=== PATIENT | female | born 1940 | race Caucasian/White ===

== ENCOUNTER 2017-05-28 12:15 | Observation (INO) | payer MEDICARE ==
[2017-05-28 13:10] LABS: BASOPHIL % 0.2 % (0.0-0.4); Basophil (Absolute #) 0.02 (0-0.4); Eosinophil % 1.1 % (0.00-5.0); Eosinophil (Absolute #) 0.11 (0-0.5); Granulocyte Absolute (ANC) 7.04 (1.4-6.9); Granulocytes % 70.7 % (36.0-66.0); Hematocrit 44.1 % (35-47); Hemoglobin 14.6 gm/dl (12.0-16.0); Lymphocyte (Absolute #) 1.62 (1.0-4.6); Lymphocytes % 16.3 % (24.0-44.0); Mean Cell Volume 92.6 fl (78-100); Mean Corpuscular Hemoglobin 30.7 pg (26-32); Mean Corpuscular Hgb Concent. 33.1 g/dl (32-36); Mean Platelet Volume 9.6 fl (6-9.5); Monocyte (Absolute #) 1.17 (0.0-1.3); Monocytes % 11.7 % (0.0-12.0); Platelet Count 272 K/mm3 (150-450); Red Blood Count 4.76 M/mm3 (4.1-5.4); Red Cell Distribution Width 14.3 % (11.5-14.0)
[2017-05-28] MEDS ORDERED: Zofran 4 MG/2 ML VIAL IV PRN (13:27)
[2017-05-28] MEDS ORDERED: MORPHINE SULFATE 2 MG INJ IV PRN (13:28)
[2017-05-28] MEDS ORDERED: Lactated Ringers 1,000 ML IV SCH ×2 (13:30→14:30)
[2017-05-28 13:38] LABS: ALBUMIN 3.6 g/dL (3.4-5.0); ALKALINE PHOSPHATASE 81 U/L (46-116); ANION GAP 15.6 MEQ/L (5-15); BLOOD UREA NITROGEN 16 mg/dL (9-20); CHLORIDE 104 mEq/L (98-107); Calcium 9.3 mg/dL (8.5-10.1); Carbon Dioxide 27.6 mEq/L (21-32); Creatinine 1 0.84 mg/dl (0.55-1.30); EST GLOMERULAR FILTRATION RATE > 60 ML/MIN; Glucose 136 MG/DL (70-110); LIPASE 70 U/L (73-393); Potassium 4.8 mEq/L (3.5-5.1); SGOT/AST 13 U/L (15-37); SGPT/ALT 16 U/L (12-78); SODIUM 142 mEq/L (136-145); Total Protein 7.9 gm/dL (6.4-8.2)
[2017-05-28] MEDS ORDERED: PROTONIX 40 MG IV IV ONE (14:00)
--- NOTE | 2017-05-28 15:31 | XRAY ---
Indication: Abdominal pain and cramping. Multiple contiguous axial images obtained through the abdomen and pelvis using 80 cc Isovue 370 contrast only. Comparison: None Lung bases demonstrate scattered bilateral fibrosis/scarring and right base calcified granuloma. No infiltrate or effusion. Heart is not enlarged. Moderate-sized hiatal hernia with partial intrathoracic stomach. Noncontrasted stomach and bowel loops appear nonobstructed. Previous reported appendectomy. Mild scattered left hemicolon fecal debris. Distal sigmoid colon diverticulosis. The more mid to proximal sigmoid colon demonstrates moderate bowel wall thickening, minimal stranding, and tiny free fluid presumed inflammatory. There is intraluminal narrowing and therefore underlying mass not completely excluded. No free air. Gallbladder demonstrates numerous tiny gallstones/gravel. Bilateral adrenal hypertrophy. 1.7 cm right upper pole cortical cyst. Remaining liver, pancreas, spleen, kidneys, ureters, bladder, and uterus appear unremarkable. Moderate aortoiliac calcifications. No AAA or pathologic retroperitoneal lymphadenopathy. Osseous structures intact with mild degenerative changes throughout the spine, greatest at the lumbosacral junction. Impression: 1. Sigmoid colon bowel wall thickening with stranding and tiny free fluid presumed inflammatory. Underlying mass not completely excluded. Distal sigmoid diverticulosis. 2. Hiatal hernia with partial intrathoracic stomach. 3. Tiny gallstones/gravel, bilateral adrenal hypertrophy, and right renal cyst. CT DI 22.77
[2017-05-28 16:14] LABS: Appearance CLEAR (CLEAR); Bilirubin NEGATIVE (NEGATIVE); Blood NEGATIVE Ery/ul (0-5); Glucose NEGATIVE (NEGATIVE); Ketones NEGATIVE (NEGATIVE); Leukocyte Esterase NEGATIVE (NEGATIVE); Nitrite NEGATIVE (NEGATIVE); Protein,Urine Dip NEGATIVE (Negative); Specific Gravity 1.005 (1.005-1.025); Urobilinogen NORMAL mg/dL (0-1)
[2017-05-28] MEDS ORDERED: Altace 5 MG PO SCH (17:00)
[2017-05-28] MEDS ORDERED: Dulcolax 10 MG SUPP PR PRN (17:41)
[2017-05-28] MEDS ORDERED: TYLENOL 325 MG PO PRN (17:41)
[2017-05-28] MEDS ORDERED: Senokot-S Tablet PO PRN (17:42)
--- NOTE | 2017-05-28 17:47 | PCM.HP ---
History of Present Illness - Chief Complaint Chief Complaint: Abd pain/ Dehydration Date: 05/28/17 History of Present Illness: is a 77 year old female. who lives at home alone and has had chronic difficulty with her bowels. 3 days ago she developed severe abdominal pains diffusely and started having chills and flushing. She stayed in bed all night and was very weak. She had no appetite and for the last 3 days has only been out of the bed to urinate and would have pain with walking or if her abdomen would bounce or shift. She did call today for a doctor's appointment and did manage to take a shower and drive to the office and felt the pain was improving but was still having increased pain with any bumps. She was found to have rebound tenderness on exam and dry lips and oral mucosa with tachycardia and sent for observation and evaluation. - Review of Systems Constitutional: No Fever, No Chills Eyes: No Symptoms Ears, Nose, & Throat: No Symptoms Respiratory: No Cough, No Short Of Breath Cardiac: No Chest Pain, No Edema, No Syncope Abdominal/Gastrointestinal: Abdominal Pain, Nausea, No Vomiting, No Diarrhea Genitourinary Symptoms: No Dysuria Musculoskeletal: Back Pain, No Neck Pain Skin: No Rash Neurological: No Dizziness, No Focal Weakness, No Sensory Changes Psychological: No Symptoms Endocrine: No Symptoms Hematologic/Lymphatic: No Symptoms Immunological/Allergic: No Symptoms Medications & Allergies Home Medications: Home Medication List Pravastatin Sodium 20 mg PO HS 07/10/13 [History Confirmed 05/28/17] Ramipril [Altace] 10 mg PO DAILY 07/10/13 [History Confirmed 05/28/17] Allergies/Adverse Reactions: Allergies Allergy/AdvReac Type Severity Reaction Status Date / Time No Known Drug Allergies Allergy Verified 08/16/16 11:39 - Past Medical History Past Medical History: Yes Neurological History: No Pertinent History ENT History: No Pertinent History Cardiac History: High Cholesterol, Hypertension Respiratory History: Other Endocrine Medical History: No Pertinent History Musculoskelatal History: Osteoporosis GI Medical History: No Pertinent History History: No Pertinent History Pyscho-Social History: No Pertinent History Reproductive Disorders: No Pertinent History Comment: allergies - Female History Are you now?: No - Past Surgical History Past Surgical History: Yes Neuro Surgical History: No Pertinent History Cardiac History: No Pertinent History Respiratory Surgery: No Pertinent History GI Surgical History: Appendectomy, Other (expoloratory laparotomy with appendectomy about 30 years ago.) Genitourinary Surgical Hx: No Pertinent History (Colonoscopy 11/21/2016: [facility]; EGD [facility] with erosive gastritis.) Musculskeletal Surgical Hx: No Pertinent History Female Surgical History: No Pertinent History Other Surgical History: diagnostic open abdominal - Social History Smoking Status: Current some day smoker How long have you smoked: 60 Exposure to second hand smoke: No Alcohol: None Drug Use: none - Physical Exam General Appearance: no apparent distress, alert, obese Neurologic Exam: alert, oriented x 3, cooperative, normal mood/affect, nml cerebellar function, nml station & gait, sensation nml, No motor deficits Eye Exam: PERRL/EOMI, eyes nml inspection Ears, Nose, Throat Exam: normal ENT inspection, TMs normal, pharynx normal, moist mucous membranes Neck Exam: normal inspection, non-tender, supple, full range of motion Respiratory Exam: normal breath sounds, lungs clear, No respiratory distress Cardiovascular Exam: regular rate/rhythm, normal heart sounds, normal peripheral pulses Gastrointestinal/Abdomen Exam: normal bowel sounds (hypoactive), tenderness ( diffuse tenderness, mathew sign absent, rebound tenderness without guarding.), rebound, No distention, No mass, No guarding Back Exam: normal inspection, normal range of motion, No CVA tenderness, No vertebral tenderness Extremity Exam: normal inspection, normal range of motion, pelvis stable Skin Exam: normal color, warm, dry, No rash Lymphatic Exam: No adenopathy Results - Labs Lab/Micro Results: Lab Results-Last 24 Hours 05/28/17 05/28/17 05/28/17 Range/Units 13:08 13:09 13:09 WBC 10.0 (4.0-10.5) K/mm3 RBC 4.76 (4.1-5.4) M/mm3 Hgb 14.6 (12.0-16.0) gm/dl Hct 44.1 (35-47) % MCV 92.6 (78-100) fl MCH 30.7 (26-32) pg MCHC 33.1 (32-36) g/dl RDW 14.3 H (11.5-14.0) % Plt Count 272 (150-450) K/mm3 MPV 9.6 H (6-9.5) fl Gran % 70.7 H (36.0-66.0) % Lymphocytes % 16.3 L (24.0-44.0) % Monocytes % 11.7 (0.0-12.0) % Eosinophils % 1.1 (0.00-5.0) % Basophils % 0.2 (0.0-0.4) % Basophils # 0.02 (0-0.4) Sodium 142 (136-145) mEq/L Potassium 4.8 (3.5-5.1) mEq/L Chloride 104 (98-107) mEq/L Carbon Dioxide 27.6 (21-32) mEq/L Anion Gap 15.6 H (5-15) MEQ/L BUN 16 (9-20) mg/dL Creatinine 0.84 (0.55-1.30) mg/dl Estimated GFR > 60 ML/MIN Glucose 136 H (70-110) MG/DL Lactic Acid 1.5 (0.4-2.0) Calcium 9.3 (8.5-10.1) mg/dL Total Bilirubin 0.60 (0.2-1.0) mg/dL AST 13 L (15-37) U/L ALT 16 (12-78) U/L Alkaline Phosphatase 81 (46-116) U/L Serum Total Protein 7.9 (6.4-8.2) gm/dL Albumin 3.6 (3.4-5.0) g/dL Lipase 70 L (73-393) U/L Ur Collection Type Urine Color (YELLOW) Urine Appearance (CLEAR) Urine pH (5-6) Ur Specific [place] (1.005-1.025) Urine Protein (Negative) Urine Ketones (NEGATIVE) Urine Blood (0-5) Luke/ul Urine Nitrite (NEGATIVE) Urine Bilirubin (NEGATIVE) Urine Urobilinogen (0-1) mg/dL Ur Leukocyte Esterase (NEGATIVE) Urine Glucose (NEGATIVE) mg/dL Specimen Received 05/28/17 Range/Units 15:39 WBC (4.0-10.5) K/mm3 RBC (4.1-5.4) M/mm3 Hgb (12.0-16.0) gm/dl Hct (35-47) % MCV (78-100) fl MCH (26-32) pg MCHC (32-36) g/dl RDW (11.5-14.0) % Plt Count (150-450) K/mm3 MPV (6-9.5) fl Gran % (36.0-66.0) % Lymphocytes % (24.0-44.0) % Monocytes % (0.0-12.0) % Eosinophils % (0.00-5.0) % Basophils % (0.0-0.4) % Basophils # (0-0.4) Sodium (136-145) mEq/L Potassium (3.5-5.1) mEq/L Chloride (98-107) mEq/L Carbon Dioxide (21-32) mEq/L Anion Gap (5-15) MEQ/L BUN (9-20) mg/dL Creatinine (0.55-1.30) mg/dl Estimated GFR ML/MIN Glucose (70-110) MG/DL Lactic Acid (0.4-2.0) Calcium (8.5-10.1) mg/dL Total Bilirubin (0.2-1.0) mg/dL AST (15-37) U/L ALT (12-78) U/L Alkaline Phosphatase (46-116) U/L Serum Total Protein (6.4-8.2) gm/dL Albumin (3.4-5.0) g/dL Lipase (73-393) U/L Ur Collection Type CCMS Urine Color YELLOW (YELLOW) Urine Appearance CLEAR (CLEAR) Urine pH 7.0 (5-6) Ur Specific [place] 1.005 (1.005-1.025) Urine Protein NEGATIVE (Negative) Urine Ketones NEGATIVE (NEGATIVE) Urine Blood NEGATIVE (0-5) Luke/ul Urine Nitrite NEGATIVE (NEGATIVE) Urine Bilirubin NEGATIVE (NEGATIVE) Urine Urobilinogen NORMAL (0-1) mg/dL Ur Leukocyte Esterase NEGATIVE (NEGATIVE) Urine Glucose NEGATIVE (NEGATIVE) mg/dL Specimen Received T@1614 - Radiology Impressions Radiology Exams & Impressions: Radiology Procedures Category Date Time Status ABDOMEN AND PELVIS W CONTRAST [CT] Routine Exams 05/28/17 13:00 Completed Assessment/Plan (1) Colitis Current Visit: Yes Status: Acute Assessment & Plan: with rebound tenderness continue iv hydration try to advance diet tonight flagyl + levaquin ordered if improving possibly home in am Code(s): K52.9 - NONINFECTIVE GASTROENTERITIS AND COLITIS, UNSPECIFIED (2) Hypertension Current Visit: Yes Status: Acute Code(s): I10 - ESSENTIAL (PRIMARY) HYPERTENSION
[2017-05-28] MEDS: FLAGYL 500 MG IVPB 500 MG/100 ML BAG IV SCH (18:18)
[2017-05-28] MEDS ORDERED: Levofloxacin 500MG/100ML D5W 500 MG/100 ML BAG IV SCH (19:00)
[2017-05-28] MEDS ORDERED: NON-FORMULARY ITEM (Pravastatin Sodium [Pravastatin Sodium] 20 MG) PO SCH (22:00)
[2017-05-28] MEDS ORDERED: ZOCOR 20MG PO SCH (22:00)
[2017-05-29] MEDS: FLAGYL 500 MG IVPB 500 MG/100 ML BAG IV SCH ×2 (01:21→06:41)
[2017-05-29 04:32] VITALS: O2SAT 95
[2017-05-29 07:49] VITALS: BP 154/86; PULSE 97
--- NOTE | 2017-05-29 08:06 | PCM.DS ---
Discharge Summary Date of Admission: 05/28/17 12:24 Date of Discharge: 05/29/2017 Admitting Physician: LINDSAY FISHER Primary Care Provider: LINDSAY FISHER Allergies Allergies No Known Drug Allergies Allergy (Verified 08/16/16 11:39) Hospital Summary - Hospital Course Hospital Course: she presented to the office with 3 days of fever chills and abdominal pain with rebound tenderness and not tolerating po but with no bowel movements and no vomiting. She appeared mildly dehydrated and with the rebound tenderness was sent for direct admission where labs and CT showed an acute colitis of the sigmoid colon with some free fluid. She was treated with iv hydration and flagyl and levofloxacin and began tolerating po had a normal bm and was having some mild cramping pain but the rebound tenderness resolved. She did not require any nausea, laxative or pain medication during admission. She will f/u next week. She had a colonoscopy in Nurs[facility] 10/2016 - Vitals & Intake/Output Vital Signs: Vital Signs Temperature 98.6 F 05/29/17 07:48 Pulse Rate 97 H 05/29/17 07:48 Respiratory Rate 16 05/29/17 07:48 Blood Pressure 154/86 05/29/17 07:48 O2 Sat by Pulse Oximetry 95 05/29/17 07:48 Intake & Output: Intake & Output 05/26/17 05/27/17 05/28/17 05/29/17 11:59 11:59 11:59 11:59 Intake Total 3311 Output Total 1600 Balance 1711 Weight 79.37 kg - Lab Result Diagrams: 05/28/17 13:09 05/28/17 13:09 Lab Results-Last 24 Hrs: Lab Results-Last 24 Hours 05/28/17 05/28/17 05/28/17 Range/Units 13:08 13:09 13:09 WBC 10.0 (4.0-10.5) K/mm3 RBC 4.76 (4.1-5.4) M/mm3 Hgb 14.6 (12.0-16.0) gm/dl Hct 44.1 (35-47) % MCV 92.6 (78-100) fl MCH 30.7 (26-32) pg MCHC 33.1 (32-36) g/dl RDW 14.3 H (11.5-14.0) % Plt Count 272 (150-450) K/mm3 MPV 9.6 H (6-9.5) fl Gran % 70.7 H (36.0-66.0) % Lymphocytes % 16.3 L (24.0-44.0) % Monocytes % 11.7 (0.0-12.0) % Eosinophils % 1.1 (0.00-5.0) % Basophils % 0.2 (0.0-0.4) % Basophils # 0.02 (0-0.4) Sodium 142 (136-145) mEq/L Potassium 4.8 (3.5-5.1) mEq/L Chloride 104 (98-107) mEq/L Carbon Dioxide 27.6 (21-32) mEq/L Anion Gap 15.6 H (5-15) MEQ/L BUN 16 (9-20) mg/dL Creatinine 0.84 (0.55-1.30) mg/dl Estimated GFR > 60 ML/MIN Glucose 136 H (70-110) MG/DL Lactic Acid 1.5 (0.4-2.0) Calcium 9.3 (8.5-10.1) mg/dL Total Bilirubin 0.60 (0.2-1.0) mg/dL AST 13 L (15-37) U/L ALT 16 (12-78) U/L Alkaline Phosphatase 81 (46-116) U/L Serum Total Protein 7.9 (6.4-8.2) gm/dL Albumin 3.6 (3.4-5.0) g/dL Lipase 70 L (73-393) U/L Ur Collection Type Urine Color (YELLOW) Urine Appearance (CLEAR) Urine pH (5-6) Ur Specific [place] (1.005-1.025) Urine Protein (Negative) Urine Ketones (NEGATIVE) Urine Blood (0-5) Luke/ul Urine Nitrite (NEGATIVE) Urine Bilirubin (NEGATIVE) Urine Urobilinogen (0-1) mg/dL Ur Leukocyte Esterase (NEGATIVE) Urine Glucose (NEGATIVE) mg/dL Specimen Received 05/28/17 Range/Units 15:39 WBC (4.0-10.5) K/mm3 RBC (4.1-5.4) M/mm3 Hgb (12.0-16.0) gm/dl Hct (35-47) % MCV (78-100) fl MCH (26-32) pg MCHC (32-36) g/dl RDW (11.5-14.0) % Plt Count (150-450) K/mm3 MPV (6-9.5) fl Gran % (36.0-66.0) % Lymphocytes % (24.0-44.0) % Monocytes % (0.0-12.0) % Eosinophils % (0.00-5.0) % Basophils % (0.0-0.4) % Basophils # (0-0.4) Sodium (136-145) mEq/L Potassium (3.5-5.1) mEq/L Chloride (98-107) mEq/L Carbon Dioxide (21-32) mEq/L Anion Gap (5-15) MEQ/L BUN (9-20) mg/dL Creatinine (0.55-1.30) mg/dl Estimated GFR ML/MIN Glucose (70-110) MG/DL Lactic Acid (0.4-2.0) Calcium (8.5-10.1) mg/dL Total Bilirubin (0.2-1.0) mg/dL AST (15-37) U/L ALT (12-78) U/L Alkaline Phosphatase (46-116) U/L Serum Total Protein (6.4-8.2) gm/dL Albumin (3.4-5.0) g/dL Lipase (73-393) U/L Ur Collection Type CCMS Urine Color YELLOW (YELLOW) Urine Appearance CLEAR (CLEAR) Urine pH 7.0 (5-6) Ur Specific [place] 1.005 (1.005-1.025) Urine Protein NEGATIVE (Negative) Urine Ketones NEGATIVE (NEGATIVE) Urine Blood NEGATIVE (0-5) Luke/ul Urine Nitrite NEGATIVE (NEGATIVE) Urine Bilirubin NEGATIVE (NEGATIVE) Urine Urobilinogen NORMAL (0-1) mg/dL Ur Leukocyte Esterase NEGATIVE (NEGATIVE) Urine Glucose NEGATIVE (NEGATIVE) mg/dL Specimen Received T@1615 - Radiology Exams Ordered Rad Exams-Entire Visit: Radiology Procedures Category Date Time Status ABDOMEN AND PELVIS W CONTRAST [CT] Routine Exams 05/28/17 13:00 Completed Discharge Exam General Appearance: no apparent distress, alert, obese Neurologic Exam: alert, oriented x 3, cooperative, normal mood/affect, nml cerebellar function, sensation nml, No motor deficits Skin Exam: normal color, warm, dry Eye Exam: PERRL, EOMI, eyes nml inspection Ears, Nose, Throat Exam: normal ENT inspection, pharynx normal, moist mucous membranes Neck Exam: normal inspection, non-tender, supple, full range of motion Respiratory Exam: normal breath sounds, lungs clear, No respiratory distress Cardiovascular Exam: regular rate/rhythm, normal heart sounds Gastrointestinal/Abdomen Exam: soft, No tenderness, No mass Extremity Exam: normal inspection, normal range of motion Back Exam: normal inspection, normal range of motion, No CVA tenderness, No vertebral tenderness Pelvic Exam: deferred Rectal Exam: deferred Final Diagnosis/Problem List - Final Discharge Diagnosis/Problem (1) Colitis Current Visit: Yes Status: Acute (2) Hypertension Current Visit: Yes Status: Acute - Discharge Discharge Date: 05/29/17 Disposition: Home, Self-Care Condition: Stable Prescriptions: New Metronidazole 500 mg [Flagyl 500 MG] 500 mg PO TID #18 tablet Levofloxacin [Levofloxacin 500 MG Tablet] 500 mg PO DAILY #6 tablet Continue Ramipril [Altace] 10 mg PO DAILY Pravastatin Sodium 20 mg PO HS Follow up with: LINDSAY FISHER [Primary Care Provider] - 1 Week
[2017-05-29] MEDS ORDERED: NON-FORMULARY ITEM (Ramipril [Altace] 10 MG) PO SCH (10:00)
== END 2017-05-29 09:25 | disposition home or self-care (01) ==
LOC: MED SURG 12:24
PROVIDERS: ADMIT Family Medicine; ATTEND Family Medicine
DX: K52.9 Noninfective gastroenteritis and colitis, unspecified (principal); I10 Essential (primary) hypertension
CPT/HCPCS: 36415; 74177; 80053; 81002; 83605; 83690; 85025; 93268; G0378; J1956; A9270-GY

== ENCOUNTER 2018-02-17 12:09 | Observation (INO) | payer MEDICARE ==
[2018-02-17] MEDS ORDERED: Zofran 4 MG/2 ML VIAL IV ONE (12:55)
[2018-02-17] MEDS ORDERED: SUBLIMAZE 100 MCG/2 ML IV ONE (12:55)
[2018-02-17] MEDS ORDERED: DUONEB 0.5-3 MG/3 ml Neb IH ONE ×2 (13:00→13:06)
[2018-02-17] MEDS ORDERED: Sodium Chloride 0.9% 1000 ML 1,000 ML IV SCH (13:00)
[2018-02-17 13:02] LABS: BASOPHIL % 0.3 % (0.0-0.4); Basophil (Absolute #) 0.03 (0-0.4); Eosinophil % 0.2 % (0.00-5.0); Eosinophil (Absolute #) 0.02 (0-0.5); Granulocyte Absolute (ANC) 8.77 (1.4-6.9); Granulocytes % 78.3 % (36.0-66.0); Hematocrit 38.9 % (35-47); Hemoglobin 12.9 gm/dl (12.0-16.0); Lymphocyte (Absolute #) 1.04 (1.0-4.6); Lymphocytes % 9.3 % (24.0-44.0); Mean Corpuscular Hemoglobin 31.2 pg (26-32); Mean Corpuscular Hgb Concent. 33.2 g/dl (32-36); Mean Platelet Volume 9.6 fl (6-9.5); Monocyte (Absolute #) 1.33 (0.0-1.3); Monocytes % 11.9 % (0.0-12.0); Platelet Count 256 K/mm3 (150-450); Red Blood Count 4.14 M/mm3 (4.1-5.4); Red Cell Distribution Width 13.2 % (11.5-14.0); White Blood Count 11.2 K/mm3 (4.0-10.5)
[2018-02-17] MEDS ORDERED: Zofran 4 MG/2 ML VIAL ONE (13:07)
[2018-02-17] MEDS ORDERED: SUBLIMAZE 100 MCG/2 ML ONE (13:07)
[2018-02-17] MEDS ORDERED: Sodium Chloride 0.9% 1000 ML 1,000 ML ONE (13:07)
[2018-02-17 13:14] LABS: ALBUMIN 3.7 g/dL (3.5-5.0); ALKALINE PHOSPHATASE 87 U/L (38-126); AMYLASE 38 U/L (30-110); ANION GAP 11.8 MEQ/L (5-15); BLOOD UREA NITROGEN 18 mg/dL (7-17); CHLORIDE 99 mmol/L (98-107); Calcium 9.3 mg/dL (8.4-10.2); Carbon Dioxide 30 mmol/L (22-30); Creatinine 1 0.65 mg/dL (0.52-1.04); Glucose 151 mg/dL (74-106); LIPASE 20 U/L (23-300); Potassium 3.6 mmol/L (3.5-5.1); SGOT/AST 20 U/L (14-36); SGPT/ALT 17 U/L (0-35); SODIUM 137 mmol/L (137-145); Total Protein 6.7 g/dL (6.3-8.2)
--- NOTE | 2018-02-17 13:40 | ERPHSYRPT ---
- History of Present Illness Time Seen by Provider: 02/17/18 12:20 Historian: patient Exam Limitations: clinical condition Patient Subjective Stated Complaint: low abdominal pain x 4 days.. has had problems with his stomache but unsure what it is. Triage Nursing Assessment: alert and oriented.. able to ambulate to room and undress per self. states low abdominal pain x 4 days.. nausea with no vomiting, .. states has been gassy. abdomen soft with + BS. states had a good BM yesterday. Physician History: PATIENT WITH A HISTORY OF HYPERTENSION COMPLAINS OF LEFT LOWER ABDOMINAL PAINS FOR 4 DAYS, ASSOCIATED WITH NAUSEA. DENIES, FEVER, URINARY SYMPTOMS, DIARRHEA OR EMESIS. Timing/Duration: day(s) Activities at Onset: none Quality: sharpness, stabbing Abdominal Pain Onset Location: LLQ Pain Radiation: no radiation Severity of Pain-Max: moderate Associated Symptoms: denies symptoms Previous symptoms: same symptoms as today Allergies/Adverse Reactions: No Known Drug Allergies Allergy (Verified 08/16/16 11:39) Home Medications: Pravastatin Sodium 20 mg PO HS 07/10/13 [History] Ramipril [Altace] 10 mg PO DAILY 07/10/13 [History] Hx Tetanus, Diphtheria Vaccination/Date Given: Yes Hx Influenza Vaccination/Date Given: Yes (2012) Hx Pneumococcal Vaccination/Date Given: No - Past Medical History Pertinent Past Medical History: Yes Neurological History: No Pertinent History ENT History: No Pertinent History Cardiac History: High Cholesterol, Hypertension Respiratory History: Other Endocrine Medical History: No Pertinent History Musculoskeletal History: Osteoporosis GI Medical History: No Pertinent History History: No Pertinent History Psycho-Social History: No Pertinent History Female Reproductive Disorders: No Pertinent History Other Medical History: allergies - Past Surgical History Past Surgical History: Yes Neuro Surgical History: No Pertinent History Cardiac: No Pertinent History Respiratory: No Pertinent History Gastrointestinal: Appendectomy, Other Genitourinary: No Pertinent History Musculoskeletal: No Pertinent History Female Surgical History: No Pertinent History Other Surgical History: diagnostic open abdominal - Social History Smoking Status: Never smoker How long have you smoked: 60 Exposure to second hand smoke: No Drug Use: none Patient Lives Alone: No - Female History Hx Now: No - Nursing Vital Signs Nursing Vital Signs: Initial Vital Signs Temperature 99.0 F 02/17/18 12:10 Pulse Rate 94 H 02/17/18 12:10 Respiratory Rate 20 02/17/18 12:10 Blood Pressure 145/83 02/17/18 12:10 O2 Sat by Pulse Oximetry 98 02/17/18 12:10 Pain Scale Pain Intensity 2 - Physical Exam SpO2: 94 Oxygen Delivery: Nasal Cannula - CT Exams Abdomen/Pelvis CT Interpretation: Tele-radiologist Report (THERE IS BOWEL WALL THICKENING AND DILATATION OF THE SIGMOID COLON WITH AN EDEMATOUS WALL WITHOUT PERFORATION) Ordered Tests: Active Orders 24 hr Category Date Time Status Up With Assistance ROUTINE Activity 02/17/18 16:03 Ordered Clean Catch Urine Specimen STAT Care 02/17/18 12:55 Active Code Status Order ROUTINE Care 02/17/18 16:05 Ordered IV Care Q6H Care 02/17/18 16:05 Ordered IV Insertion STAT Care 02/17/18 13:02 Active Oxygen-ED Only NASAL CANNULA 2 lpm Care 02/17/18 13:[address] in Observation ROUTINE Care 02/17/18 16:05 Ordered Vital Signs Q4H Care 02/17/18 16:03 Ordered NPO except Meds Diet 02/17/18 16:06 Ordered ABDOMEN AND PELVIS W CONTRAST [CT] Stat Exams 02/17/18 12:59 Taken CHEST 1 VIEW (PORTABLE) Stat Exams 02/17/18 13:54 Taken AMYLASE Stat Lab 02/17/18 12:40 Completed BLOOD CULTURE Stat Lab 02/17/18 13:05 Received CBC W DIFF Stat Lab 02/17/18 12:40 Completed CMP Stat Lab 02/17/18 12:40 Completed LIPASE Stat Lab 02/17/18 12:40 Completed UA W/RFX UR CULTURE Stat Lab 02/17/18 12:40 Received Oxygen NASAL CANNULA 2 lpm RT 02/17/18 16:03 Ordered Peak Expiratory Flow Rate ONCE RT 02/17/18 13:11 Completed Respiratory Nebulizer STAT RT 02/17/18 13:00 Completed Respiratory Therapy Assessment DAILY RT 02/17/18 13:10 Completed Transfer Order Routine Transfer 02/17/18 Ordered Medication Summary Generic Name Dose Route Start Last Admin Trade Name Freq PRN Reason Stop Dose Admin Sodium Chloride 1,000 mls @ 200 mls/hr 02/17/18 13:00 02/17/18 13:11 Sodium Chloride 0.9% 1000 Ml IV 03/19/18 12:59 200 mls/hr .Q5H JANNETH Administration Levofloxacin/Dextrose 500 mg in 100 mls @ 100 mls/hr 02/17/18 15:45 02/17/18 15:54 Levofloxacin 500mg/100ml D5w IV 02/17/18 16:44 100 ml/hr STAT STA 100 mls/hr Administration Discontinued Medications Generic Name Dose Route Start Last Admin Trade Name Denae PRN Reason Stop Dose Admin Albuterol/Ipratropium 3 ml 02/17/18 13:00 02/17/18 13:07 Duoneb 0.5-3 Mg/3 Ml Neb IH 02/17/18 13:01 3 ml STAT ONE Administration Albuterol/Ipratropium Confirm 02/17/18 13:06 Duoneb 0.5-3 Mg/3 Ml Neb Administered 02/17/18 13:07 Dose 3 ml IH .STK-MED ONE Fentanyl Citrate 50 mcg 02/17/18 12:55 02/17/18 13:12 Sublimaze 100 Mcg/2 Ml IV 02/17/18 12:56 50 mcg STAT ONE Administration Fentanyl Citrate Confirm 02/17/18 13:07 Sublimaze 100 Mcg/2 Ml Administered 02/17/18 13:08 Dose 100 mcg .ROUTE .STK-MED ONE Levofloxacin/Dextrose Confirm 02/17/18 15:49 Levofloxacin 500mg/100ml D5w Administered 02/17/18 15:50 Dose 500 mg in 100 mls @ ud IV .STK-MED ONE Ondansetron HCl 4 mg 02/17/18 12:55 02/17/18 13:12 Zofran 4 Mg/2 Ml Vial IV 02/17/18 12:56 4 mg STAT ONE Administration Ondansetron HCl Confirm 02/17/18 13:07 Zofran 4 Mg/2 Ml Vial Administered 02/17/18 13:08 Dose 4 mg .ROUTE .STK-MED ONE Pantoprazole Sodium Confirm 02/17/18 16:04 Protonix 40 Mg Iv Administered 02/17/18 16:05 Dose 40 mg IV .STK-MED ONE Pantoprazole Sodium 40 mg 02/17/18 16:08 02/17/18 16:10 Protonix 40 Mg Iv IV 02/17/18 16:09 40 mg STAT ONE Administration Lab/Rad Data: Laboratory Result Diagrams 02/17/18 12:40 02/17/18 12:40 Laboratory Results 02/17/18 02/17/18 Range/Units 12:40 12:40 WBC 11.2 H (4.0-10.5) K/mm3 RBC 4.14 (4.1-5.4) M/mm3 Hgb 12.9 (12.0-16.0) gm/dl Hct 38.9 (35-47) % MCV 94.0 (78-100) fl MCH 31.2 (26-32) pg MCHC 33.2 (32-36) g/dl RDW 13.2 (11.5-14.0) % Plt Count 256 (150-450) K/mm3 MPV 9.6 H (6-9.5) fl Gran % 78.3 H (36.0-66.0) % Eos # (Auto) 0.02 (0-0.5) Absolute Lymphs (auto) 1.04 (1.0-4.6) Absolute Monos (auto) 1.33 H (0.0-1.3) Lymphocytes % 9.3 L (24.0-44.0) % Monocytes % 11.9 (0.0-12.0) % Eosinophils % 0.2 (0.00-5.0) % Basophils % 0.3 (0.0-0.4) % Absolute Granulocytes 8.77 H (1.4-6.9) Basophils # 0.03 (0-0.4) Sodium 137 (137-145) mmol/L Potassium 3.6 (3.5-5.1) mmol/L Chloride 99 (98-107) mmol/L Carbon Dioxide 30 (22-30) mmol/L Anion Gap 11.8 (5-15) MEQ/L BUN 18 H (7-17) mg/dL Creatinine 0.65 (0.52-1.04) mg/dL Estimated GFR > 60.0 ML/MIN Glucose 151 H (74-106) mg/dL Calcium 9.3 (8.4-10.2) mg/dL Total Bilirubin 0.60 (0.2-1.3) mg/dL AST 20 (14-36) U/L ALT 17 (0-35) U/L Alkaline Phosphatase 87 (38-126) U/L Serum Total Protein 6.7 (6.3-8.2) g/dL Albumin 3.7 (3.5-5.0) g/dL Amylase 38 (30-110) U/L Lipase 20 L (23-300) U/L - Progress Progress Note: 02/17/18 15:58 IV NORMAL SALINE 200ML/HR, ZOFRAN 4MG, FENTANYL 50MCG IV, AFTER 2 SETS OF BLOOD CULTURES LEVAQUIN 500MG IVPB Discussed with Dr.: Patel (DISCUSSED WITH DR PATEL AT 1550 FOR OBSERVATION) - Departure Time of Disposition: 16:05 Departure Disposition: Observation Clinical Impression: ACUTE SIGMOID DIVERTICULITIS Condition: Stable Critical Care Time: No Referrals: LINDSAY FISHER [Primary Care Provider] -
[2018-02-17] MEDS ORDERED: Levofloxacin 500MG/100ML D5W 500 MG/100 ML BAG IV STA (15:45)
[2018-02-17] MEDS ORDERED: Levofloxacin 500MG/100ML D5W 500 MG/100 ML BAG IV ONE (15:49)
[2018-02-17] MEDS ORDERED: TYLENOL 325 MG PO PRN (16:03)
[2018-02-17] MEDS ORDERED: DUONEB 0.5-3 MG/3 ml Neb IH PRN (16:03)
[2018-02-17] MEDS ORDERED: PROTONIX 40 MG IV IV ONE ×2 (16:04→16:08)
[2018-02-17] MEDS ORDERED: Xopenex 1.25 MG/0.5 ML UD NEBULE IH PRN (16:08)
--- NOTE | 2018-02-17 16:13 | XRAY ---
Indication: Pelvic pain. Constipation and nausea. History diverticulitis. Multiple contiguous axial images obtained through the abdomen and pelvis using 80 cc of Isovue-370 contrast only. Comparison: May 28, 2017. Lung bases again demonstrates bilateral fibrosis/scarring and right lower lobe calcified granuloma. No infiltrate or effusion. Heart is not enlarged. Stable moderate size hiatal hernia with partial intrathoracic stomach. Noncontrasted stomach and bowel loops appear nonobstructed. Stable distal sigmoid diverticulosis. The mid to proximal sigmoid colon again demonstrates moderate bowel wall thickening with mild stranding and small free fluid. Findings again either diverticulitis/colitis versus mass. No walled off fluid collection or free air. Stable numerous gallstones/gravel, bilateral adrenal hypertrophy, and right upper pole cortical cyst. Remaining liver, pancreas, spleen, kidneys, ureters, bladder, and uterus appear unremarkable. There remains moderate aortoiliac calcifications. No AAA or pathologic retroperitoneal lymphadenopathy. Osseous structures again demonstrates mild degenerative changes throughout the spine. No ventral or inguinal hernias. Impression: 1. Again abnormal sigmoid colon as detailed. Rule out diverticulitis/colitis versus malignancy. 2. Stable hiatal hernia with partial intrathoracic stomach, gallstones/gravel, bilateral adrenal hypertrophy, and right renal cysts. Comment: Preliminary interpretation was made by [facility]. No critical discrepancy. CTDI 21.53
--- NOTE | 2018-02-17 16:15 | XRAY ---
Indication: Cough and congestion. Comparison: October 23, 2017. Portable apical lordotic chest again demonstrates left base atelectasis/scarring, right lung calcified granuloma, tortuous descending aorta, and hiatal hernia. Remaining lungs unremarkable. Heart is not enlarged for AP portable technique. Bony thorax intact again with osteopenia and degenerative changes. Impression: Stable nonacute chest with chronic features.
[2018-02-17] MEDS: FLAGYL 500 MG IVPB 500 MG/100 ML BAG IV SCH (17:52)
[2018-02-17 18:15] LABS: Appearance CLEAR (CLEAR); Bilirubin NEGATIVE (NEGATIVE); Blood NEGATIVE Ery/ul (0-5); Glucose NEGATIVE (NEGATIVE); Ketones NEGATIVE (NEGATIVE); Leukocyte Esterase NEGATIVE (NEGATIVE); Nitrite NEGATIVE (NEGATIVE); Protein,Urine Dip NEGATIVE (Negative); Specific Gravity 1.025 (1.005-1.025); Urobilinogen 2 mg/dL (0-1)
[2018-02-17] MEDS: Sodium Chloride 0.9% 1000 ML 1,000 ML IV SCH (18:47)
[2018-02-17] MEDS: ZOCOR 20MG PO SCH (21:44)
[2018-02-17] MEDS: MORPHINE SULFATE 2 MG INJ IV PRN (21:51)
[2018-02-18] MEDS: FLAGYL 500 MG IVPB 500 MG/100 ML BAG IV SCH ×4 (00:18→17:51)
[2018-02-18] MEDS: DUONEB 0.5-3 MG/3 ml Neb IH SCH ×3 (05:54→17:35)
--- NOTE | 2018-02-18 08:28 | PCM.HP ---
History of Present Illness - Chief Complaint Chief Complaint: abdominal pain Date: 02/18/18 History of Present Illness: is a 77 year old female. constipated for a few days then pain chills and nausea for 3 to 4 days. no blood or mucous filled stools no vomiting. she is feeling a little better this am. she has a headache and is hungry. she has been npo since admission. - Review of Systems Constitutional: Chills, Fatigue, Weakness, No Fever Eyes: No Symptoms Ears, Nose, & Throat: No Symptoms Respiratory: No Cough, No Short Of Breath Cardiac: No Chest Pain, No Edema, No Syncope Abdominal/Gastrointestinal: Abdominal Pain, Nausea, No Vomiting, No Diarrhea, No Constipation, No Hematemesis, No Hematochezia, No Melena, No Dysphagia Genitourinary Symptoms: No Dysuria, No Frequency, No Hematuria Musculoskeletal: No Back Pain, No Neck Pain Skin: No Rash Neurological: No Dizziness, No Focal Weakness, No Sensory Changes Psychological: No Symptoms Endocrine: No Symptoms Hematologic/Lymphatic: No Symptoms Immunological/Allergic: No Symptoms Medications & Allergies Home Medications: Home Medication List Pravastatin Sodium 20 mg PO HS 07/10/13 [History Confirmed 02/17/18] Ramipril [Altace] 10 mg PO DAILY 07/10/13 [History Confirmed 02/17/18] Budesonide/Formoterol Fumarate [Symbicort 80-4.5 Mcg Inhaler] 10.2 gm IH DAILY 02/17/18 [History Confirmed 02/17/18] Allergies/Adverse Reactions: Allergies Allergy/AdvReac Type Severity Reaction Status Date / Time No Known Drug Allergies Allergy Verified 08/16/16 11:39 - Past Medical History Past Medical History: Yes Neurological History: No Pertinent History ENT History: No Pertinent History Cardiac History: High Cholesterol, Hypertension Respiratory History: Other Endocrine Medical History: No Pertinent History Musculoskelatal History: Osteoporosis GI Medical History: No Pertinent History History: No Pertinent History Pyscho-Social History: No Pertinent History Reproductive Disorders: No Pertinent History Comment: allergies - Female History Are you now?: No - Past Surgical History Past Surgical History: Yes Neuro Surgical History: No Pertinent History Cardiac History: No Pertinent History Respiratory Surgery: No Pertinent History GI Surgical History: Appendectomy, Other Genitourinary Surgical Hx: No Pertinent History Musculskeletal Surgical Hx: No Pertinent History Female Surgical History: No Pertinent History Other Surgical History: diagnostic open abdominal - Social History Smoking Status: Former smoker How long have you smoked: 60 Exposure to second hand smoke: No Alcohol: None Drug Use: none - Physical Exam Vital Signs: Vital Signs - 24 hr Temp Pulse Resp BP Pulse Ox 02/18/18 07:15 97.7 F 82 18 135/77 96 02/18/18 06:39 82 18 96 02/18/18 04:00 98.3 F 86 16 137/78 96 02/18/18 00:00 98.6 F 84 18 142/78 98 02/17/18 20:04 79 19 98 02/17/18 19:19 98.4 F 79 19 120/72 98 02/17/18 17:36 84 16 96 02/17/18 16:45 99.0 F 88 127/74 94 L 02/17/18 16:15 94 L 02/17/18 16:11 88 16 127/74 98 02/17/18 15:00 79 18 111/61 98 02/17/18 13:19 88 16 117/64 94 L 02/17/18 13:11 89 16 96 02/17/18 12:10 99.0 F 94 H 20 145/83 98 Oxygen-Last 24 hours O2 Percentage 2 Liters = 28% O2 Percentage 2 Liters = 28% O2 Percentage 2 Liters = 28% O2 Percentage 2 Liters = 28% O2 Percentage 2 Liters = 28% O2 Percentage 2 Liters = 28% General Appearance: no apparent distress, alert Neurologic Exam: alert, oriented x 3, cooperative, normal mood/affect, nml cerebellar function, nml station & gait, sensation nml, No motor deficits Eye Exam: PERRL/EOMI, eyes nml inspection Ears, Nose, Throat Exam: normal ENT inspection, TMs normal, pharynx normal, moist mucous membranes Neck Exam: normal inspection, non-tender, supple, full range of motion Respiratory Exam: normal breath sounds, lungs clear, No respiratory distress Cardiovascular Exam: regular rate/rhythm, normal heart sounds, normal peripheral pulses Gastrointestinal/Abdomen Exam: soft, normal bowel sounds, tenderness (left lower quadrant), No distention, No mass, No guarding, No ecchymosis, No rebound Back Exam: normal inspection, normal range of motion, No CVA tenderness, No vertebral tenderness Extremity Exam: normal inspection, normal range of motion, pelvis stable Skin Exam: normal color, warm, dry, No rash Lymphatic Exam: No adenopathy Results - Labs Lab/Micro Results: Lab Results-Last 24 Hours 02/17/18 02/17/18 02/17/18 Range/Units 12:40 12:40 12:40 WBC 11.2 H (4.0-10.5) K/mm3 RBC 4.14 (4.1-5.4) M/mm3 Hgb 12.9 (12.0-16.0) gm/dl Hct 38.9 (35-47) % MCV 94.0 (78-100) fl MCH 31.2 (26-32) pg MCHC 33.2 (32-36) g/dl RDW 13.2 (11.5-14.0) % Plt Count 256 (150-450) K/mm3 MPV 9.6 H (6-9.5) fl Gran % 78.3 H (36.0-66.0) % Eos # (Auto) 0.02 (0-0.5) Absolute Lymphs (auto) 1.04 (1.0-4.6) Absolute Monos (auto) 1.33 H (0.0-1.3) Lymphocytes % 9.3 L (24.0-44.0) % Monocytes % 11.9 (0.0-12.0) % Eosinophils % 0.2 (0.00-5.0) % Basophils % 0.3 (0.0-0.4) % Absolute Granulocytes 8.77 H (1.4-6.9) Basophils # 0.03 (0-0.4) Sodium 137 (137-145) mmol/L Potassium 3.6 (3.5-5.1) mmol/L Chloride 99 (98-107) mmol/L Carbon Dioxide 30 (22-30) mmol/L Anion Gap 11.8 (5-15) MEQ/L BUN 18 H (7-17) mg/dL Creatinine 0.65 (0.52-1.04) mg/dL Estimated GFR > 60.0 ML/MIN Glucose 151 H (74-106) mg/dL Calcium 9.3 (8.4-10.2) mg/dL Total Bilirubin 0.60 (0.2-1.3) mg/dL AST 20 (14-36) U/L ALT 17 (0-35) U/L Alkaline Phosphatase 87 (38-126) U/L Serum Total Protein 6.7 (6.3-8.2) g/dL Albumin 3.7 (3.5-5.0) g/dL Amylase 38 (30-110) U/L Lipase 20 L (23-300) U/L Urine Color YELLOW (YELLOW) Urine Appearance CLEAR (CLEAR) Urine pH 5.0 (5-6) Ur Specific [place] 1.025 (1.005-1.025) Urine Protein NEGATIVE (Negative) Urine Ketones NEGATIVE (NEGATIVE) Urine Blood NEGATIVE (0-5) Luke/ul Urine Nitrite NEGATIVE (NEGATIVE) Urine Bilirubin NEGATIVE (NEGATIVE) Urine Urobilinogen 2 (0-1) mg/dL Ur Leukocyte Esterase NEGATIVE (NEGATIVE) Urine WBC (Auto) 0-2 (0-5) /HPF Urine RBC (Auto) 0-2 (0-2) /HPF U Epithel Cells (Auto) FEW (FEW) /HPF Urine Bacteria (Auto) NONE SEEN (NEGATIVE) /HPF Urine Mucus (Auto) SLIGHT (NEGATIVE) /HPF Urine Culture Reflexed NO (NO) Urine Glucose NEGATIVE (NEGATIVE) mg/dL - Radiology Impressions Radiology Exams & Impressions: Radiology Procedures Category Date Time Status ABDOMEN AND PELVIS W CONTRAST [CT] Stat Exams 02/17/18 12:59 Completed CHEST 1 VIEW (PORTABLE) Stat Exams 02/17/18 13:54 Completed - Other Procedures and Tests Respiratory Therapy 02/17/18 16:03 Oxygen NASAL CANNULA 2 lpm 02/17/18 17:32 Peak Expiratory Flow Rate ONCE Respiratory Therapy Assessment DAILY Assessment/Plan (1) Sigmoid diverticulitis Current Visit: Yes Status: Acute Assessment & Plan: last colonoscopy was Dr. Garcia in [place] in 2017 on flagyl + levaquin will advance diet as tolerated this is second occurance this year. She may require surgical f/u at discharge and consideration at repeat colonoscopy. the results are not available of the 2017 scope she states there were polyps. lovenox for ppx Code(s): K57.32 - DVTRCLI OF LG INT W/O PERFORATION OR ABSCESS W/O BLEEDING (2) Hypertension Current Visit: Yes Status: Chronic Code(s): I10 - ESSENTIAL (PRIMARY) HYPERTENSION
[2018-02-18] MEDS: Sodium Chloride 0.9% 1000 ML 1,000 ML IV SCH (09:12)
[2018-02-18] MEDS ORDERED: FORMOTEROL FUMARATE IH SCH (10:00)
[2018-02-18] MEDS ORDERED: BUDESONIDE IH SCH (10:00)
[2018-02-18] MEDS ORDERED: Zestril 20 MG*** 20 MG, hydroDIURIL 25 MG*** 12.5 MG PO SCH ×2 (10:00)
[2018-02-18] MEDS ORDERED: [UNRECOGNIZED DRUG - OTHER] IH SCH (10:00)
[2018-02-18] MEDS: ENOXAPARIN SODIUM SQ SCH (10:29)
[2018-02-18] MEDS: MORPHINE SULFATE 2 MG INJ IV PRN (10:36)
[2018-02-18] MEDS: Levofloxacin 500MG/100ML D5W 500 MG/100 ML BAG IV SCH (11:45)
[2018-02-18] MEDS: Zofran 4 MG/2 ML VIAL IV PRN (21:19)
[2018-02-18] MEDS: ZOCOR 20MG PO SCH (21:19)
[2018-02-19] MEDS: Sodium Chloride 0.9% 1000 ML 1,000 ML IV SCH ×2 (00:32→16:09)
[2018-02-19] MEDS: MORPHINE SULFATE 2 MG INJ IV PRN ×2 (00:34→10:59)
[2018-02-19] MEDS: FLAGYL 500 MG IVPB 500 MG/100 ML BAG IV SCH ×5 (00:35→23:07)
[2018-02-19 06:05] LABS: BASOPHIL % 0.4 % (0.0-0.4); Basophil (Absolute #) 0.03 (0-0.4); Eosinophil % 3.7 % (0.00-5.0); Eosinophil (Absolute #) 0.29 (0-0.5); Granulocyte Absolute (ANC) 4.66 (1.4-6.9); Granulocytes % 59.7 % (36.0-66.0); Hematocrit 34.9 % (35-47); Hemoglobin 11.3 gm/dl (12.0-16.0); Lymphocytes % 24.4 % (24.0-44.0); Mean Cell Volume 94.1 fl (78-100); Mean Corpuscular Hgb Concent. 32.4 g/dl (32-36); Mean Platelet Volume 9.5 fl (6-9.5); Monocyte (Absolute #) 0.92 (0.0-1.3); Monocytes % 11.8 % (0.0-12.0); Platelet Count 287 K/mm3 (150-450); Red Blood Count 3.71 M/mm3 (4.1-5.4); Red Cell Distribution Width 13.1 % (11.5-14.0); White Blood Count 7.8 K/mm3 (4.0-10.5)
[2018-02-19 06:15] LABS: ALBUMIN 3.1 g/dL (3.5-5.0); ALKALINE PHOSPHATASE 69 U/L (38-126); ANION GAP 11.5 MEQ/L (5-15); BLOOD UREA NITROGEN 16 mg/dL (7-17); CHLORIDE 101 mmol/L (98-107); Calcium 8.6 mg/dL (8.4-10.2); Carbon Dioxide 28 mmol/L (22-30); Creatinine 1 0.73 mg/dL (0.52-1.04); Glucose 121 mg/dL (74-106); Potassium 3.6 mmol/L (3.5-5.1); SGOT/AST 17 U/L (14-36); SGPT/ALT 15 U/L (0-35); SODIUM 137 mmol/L (137-145); Total Protein 5.8 g/dL (6.3-8.2)
[2018-02-19 06:42] LABS: Mean Corpuscular Hemoglobin 30.4 pg (26-32)
[2018-02-19] MEDS: DUONEB 0.5-3 MG/3 ml Neb IH SCH ×2 (07:34→19:55)
[2018-02-19] MEDS: Advair Hfa 115/21 Common canister IH SCH ×2 (07:35→19:56)
--- NOTE | 2018-02-19 08:36 | PCM.NOTE ---
Date and Time: 02/19/18835 Subjective Assessment: she is feeling better this am but had severe left lower quadrant pain last night requiring morhpine for pain control associated with severe nausea. She has had increased heartburn and indigestion as well. no chest pain or shortness of breath. no swelling. she has not had a bm since arrival. Objective Exam General Appearance: no apparent distress, alert, obese Neurologic Exam: alert, oriented x 3, cooperative, normal mood/affect, nml cerebellar function, sensation nml, No motor deficits Skin Exam: normal color, warm, dry Eye Exam: PERRL, EOMI, eyes nml inspection Ears, Nose, Throat Exam: normal ENT inspection, pharynx normal, moist mucous membranes Neck Exam: normal inspection, non-tender, supple, full range of motion Respiratory Exam: normal breath sounds, lungs clear, prolonged expirations, No respiratory distress Cardiovascular Exam: regular rate/rhythm, murmur Gastrointestinal/Abdomen Exam: soft, normal bowel sounds, tenderness (left lower quadrant > then right lower quadrant), No distention, No mass, No guarding , No ecchymosis, No rebound Extremity Exam: normal inspection, normal range of motion Back Exam: normal inspection, normal range of motion, No CVA tenderness, No vertebral tenderness Pelvic Exam: deferred Rectal Exam: deferred OBJECTIVE DATA Vital Signs: Vital Signs - 24 hr Temp Pulse Resp BP Pulse Ox 02/19/18 07:37 92 H 16 93 L 02/19/18 07:11 98.1 F 90 20 107/67 92 L 02/19/18 04:00 98.6 F 89 18 134/73 96 02/19/18 00:00 98.9 F 87 18 143/81 94 L 02/18/18 20:00 98.2 F 88 20 119/57 90 L 02/18/18 17:39 82 18 93 L 02/18/18 16:00 98.3 F 79 18 149/84 94 L 02/18/18 15:23 93 L 02/18/18 12:00 98.6 F 95 H 18 121/69 90 L Pain Assessment - Last Documented Pain Intensity 6 Pain Scale Used [facility] Intake and Output: Intake & Output 02/16/18 02/17/18 02/18/18 02/19/18 11:59 11:59 11:59 11:59 Intake Total 2651 2956 Output Total 1150 1400 Balance 1331 1556 Weight 74.843 kg Lab Results: Lab Results-Last 24 Hours 02/19/18 02/19/18 Range/Units 05:24 05:24 WBC 7.8 (4.0-10.5) K/mm3 RBC 3.71 L (4.1-5.4) M/mm3 Hgb 11.3 L (12.0-16.0) gm/dl Hct 34.9 L (35-47) % MCV 94.1 (78-100) fl MCH 30.4 (26-32) pg MCHC 32.4 D (32-36) g/dl RDW 13.1 (11.5-14.0) % Plt Count 287 (150-450) K/mm3 MPV 9.5 (6-9.5) fl Gran % 59.7 (36.0-66.0) % Eos # (Auto) 0.29 (0-0.5) Absolute Lymphs (auto) 1.90 (1.0-4.6) Absolute Monos (auto) 0.92 (0.0-1.3) Lymphocytes % 24.4 (24.0-44.0) % Monocytes % 11.8 (0.0-12.0) % Eosinophils % 3.7 (0.00-5.0) % Basophils % 0.4 (0.0-0.4) % Absolute Granulocytes 4.66 (1.4-6.9) Basophils # 0.03 (0-0.4) Sodium 137 (137-145) mmol/L Potassium 3.6 (3.5-5.1) mmol/L Chloride 101 (98-107) mmol/L Carbon Dioxide 28 (22-30) mmol/L Anion Gap 11.5 (5-15) MEQ/L BUN 16 (7-17) mg/dL Creatinine 0.73 (0.52-1.04) mg/dL Estimated GFR > 60.0 ML/MIN Glucose 121 H (74-106) mg/dL Calcium 8.6 (8.4-10.2) mg/dL Total Bilirubin 0.30 (0.2-1.3) mg/dL AST 17 (14-36) U/L ALT 15 (0-35) U/L Alkaline Phosphatase 69 (38-126) U/L Serum Total Protein 5.8 L (6.3-8.2) g/dL Albumin 3.1 L (3.5-5.0) g/dL Radiology Exams: Radiology Procedures Category Date Time Status ABDOMEN AND PELVIS W CONTRAST [CT] Stat Exams 02/17/18 12:59 Completed CHEST 1 VIEW (PORTABLE) Stat Exams 02/17/18 13:54 Completed Assessment/Plan (1) Sigmoid diverticulitis Current Visit: Yes Status: Acute Assessment & Plan: persistent pain and nausea continue flagyl + levaquin continue nausea and pain control iv fluids doing better with diet currently hopefull for home tomorrow on po antibiotics if continues to improve lovenox for ppx Code(s): K57.32 - DVTRCLI OF LG INT W/O PERFORATION OR ABSCESS W/O BLEEDING (2) Hypertension Current Visit: Yes Status: Chronic Code(s): I10 - ESSENTIAL (PRIMARY) HYPERTENSION
[2018-02-19] MEDS: ENOXAPARIN SODIUM SQ SCH (09:13)
[2018-02-19] MEDS: Altace 5 MG PO SCH (09:13)
[2018-02-19] MEDS: Levofloxacin 500MG/100ML D5W 500 MG/100 ML BAG IV SCH (09:13)
[2018-02-19] MEDS: Zofran 4 MG/2 ML VIAL IV PRN (10:57)
[2018-02-19] MEDS ORDERED: Tums EX 750 MG PO PRN (13:39)
[2018-02-19] MEDS: Pepcid 20 MG VIAL IV SCH ×2 (14:48→21:15)
[2018-02-19] MEDS: ZOCOR 20MG PO SCH (21:15)
[2018-02-20] MEDS: FLAGYL 500 MG IVPB 500 MG/100 ML BAG IV SCH ×2 (06:17→11:32)
[2018-02-20] MEDS: Sodium Chloride 0.9% 1000 ML 1,000 ML IV SCH (06:42)
[2018-02-20] MEDS: DUONEB 0.5-3 MG/3 ml Neb IH SCH (06:43)
[2018-02-20] MEDS: Advair Hfa 115/21 Common canister IH SCH (06:43)
[2018-02-20] MEDS ORDERED: Dulcolax 10 MG SUPP PR ONE (08:15)
[2018-02-20] MEDS: Pepcid 20 MG VIAL IV SCH (10:17)
[2018-02-20] MEDS: Altace 5 MG PO SCH (10:17)
[2018-02-20] MEDS: Levofloxacin 500MG/100ML D5W 500 MG/100 ML BAG IV SCH (10:17)
[2018-02-20] MEDS: ENOXAPARIN SODIUM SQ SCH (10:18)
[2018-02-20] MEDS ORDERED: PROLIA 60 MG SQ ONE (11:59)
--- NOTE | 2018-02-20 12:22 | PCM.DS ---
Discharge Summary Date of Admission: 02/17/18 16:30 Date of Discharge: 02/20/18 Admitting Physician: ELEAZAR PATEL Primary Care Provider: LINDSAY FISHER Allergies Allergies No Known Drug Allergies Allergy (Verified 08/16/16 11:39) Hospital Summary - Hospital Course Hospital Course: she has history of diverticulitis and felt as though it was starting to act up with increase pain in the lower abdomen and nausea and anorexia no vomiting or diarrhea. CT confirmed sigmoid diverticulitis and she was treated with levaquin and flagyl and had good response to therapy. She did continue to have intermittent severe pain and thus remained the additional night. She had no bm for 5 days including the time prior to admission and thus was given suppository on day of discharge with good results and resolution of the pain. She has had colonoscopy in 2017 in [place]. With the recurrent episodes she would likely benefit from consideration for repeat colonoscopy as outpatient after healing. - Vitals & Intake/Output Vital Signs: Vital Signs Temperature 98.3 F 02/20/18 07:30 Pulse Rate 89 02/20/18 07:30 Respiratory Rate 18 02/20/18 07:30 Blood Pressure 169/75 02/20/18 07:30 O2 Sat by Pulse Oximetry 93 L 02/20/18 07:30 Oxygen-Last Documented O2 Percentage 2 Liters = 28% Intake & Output: Intake & Output 02/18/18 02/19/18 02/20/18 02/21/18 11:59 11:59 11:59 11:59 Intake Total 2481 3196 4110 Output Total 1150 1400 2550 Balance 1331 1796 1560 Weight 74.843 kg - Lab Result Diagrams: 02/19/18 05:24 02/19/18 05:24 Micro Results-Entire Visit: Microbiology 02/17/18 13:05 Blood Culture - Preliminary Blood NO GROWTH TO DATE 02/17/18 12:40 Blood Culture - Preliminary Blood NO GROWTH TO DATE - Procedures and Test Procedures and Tests throughout Hospitalization: Therapy Orders & Screens 02/17/18 13:00 Respiratory Nebulizer STAT Comment: Diagnosis: Shortness of Breath 02/17/18 13:10 Respiratory Therapy Assessment DAILY Comment: Diagnosis: Shortness of Breath 02/17/18 13:11 Peak Expiratory Flow Rate ONCE Comment: Reason For Exam: Diagnosis: Shortness of Breath 02/17/18 16:03 Oxygen NASAL CANNULA 2 lpm Comment: Diagnosis: Shortness of Breath 02/17/18 17:32 Peak Expiratory Flow Rate ONCE Comment: Reason For Exam: Diagnosis: Acute Sygmoid Diverticulitis Respiratory Therapy Assessment DAILY Comment: Diagnosis: Acute Sygmoid Diverticulitis Discharge Exam General Appearance: no apparent distress, alert Neurologic Exam: alert, oriented x 3, cooperative, normal mood/affect, nml cerebellar function, sensation nml, No motor deficits Skin Exam: normal color, warm, dry Eye Exam: PERRL, EOMI, eyes nml inspection Ears, Nose, Throat Exam: normal ENT inspection, pharynx normal, moist mucous membranes Neck Exam: normal inspection, non-tender, supple, full range of motion Respiratory Exam: normal breath sounds, lungs clear, No respiratory distress Cardiovascular Exam: regular rate/rhythm, normal heart sounds Gastrointestinal/Abdomen Exam: soft, No tenderness, No mass Extremity Exam: normal inspection, normal range of motion Back Exam: normal inspection, normal range of motion, No CVA tenderness, No vertebral tenderness Pelvic Exam: deferred Rectal Exam: deferred Final Diagnosis/Problem List - Final Discharge Diagnosis/Problem (1) Sigmoid diverticulitis Status: Acute (2) Hypertension Status: Chronic - Discharge Discharge Date: 02/20/18 Disposition: Home, Self-Care Condition: Stable Prescriptions: New Docusate Sodium 100 mg [Colace 100 MG] 200 mg PO DAILY PRN #60 cap PRN Reason: Constipation Metronidazole [Flagyl] 500 mg PO TID #21 tablet Levofloxacin [Levaquin] 500 mg PO DAILY #10 tablet Famotidine 20 mg [Pepcid 20 MG] 20 mg PO BID #60 tablet Continue Ramipril [Altace] 10 mg PO DAILY Pravastatin Sodium 20 mg PO HS Budesonide/Formoterol Fumarate [Symbicort 80-4.5 Mcg Inhaler] 10.2 gm IH DAILY Instructions: Diverticulitis (DC) Follow up with: LINDSAY FISHER [Primary Care Provider] - 02/28/18 1:45 pm Forms: Discharge Instructions
[2018-02-20 12:24] VITALS: BP 144/79; PULSE 93; O2SAT 92
== END 2018-02-20 13:00 | disposition home or self-care (01) ==
LOC: ED 12:09 → MED SURG 16:30
PROVIDERS: ADMIT Internal Medicine; ATTEND Family Medicine
DX: K57.32 Diverticulitis of large intestine without perforation or abscess without bleeding (principal); I10 Essential (primary) hypertension; E78.00 Pure hypercholesterolemia, unspecified; M81.0 Age-related osteoporosis without current pathological fracture; Z79.899 Other long term (current) drug therapy
CPT/HCPCS: 36000; 36415; 71045; 74177; 80053; 81001; 82150; 83690; 85025; 87040; 94150; 94640; 94760; 96360; 96361; 96365; 96374; 96375; 99285; G0378; J0897; J1650; J1956; J2270; J2405; J3010; A9270-GY

== ENCOUNTER 2019-03-08 10:03 | Emergency (ER) | payer MEDICARE ==
[2019-03-08] MEDS ORDERED: DUONEB 0.5-3 MG/3 ml Neb IH ONE ×2 (10:27→10:51)
--- NOTE | 2019-03-08 10:33 | ERPHSYRPT ---
- History of Present Illness Time Seen by Provider: 03/08/19 10:30 Source: patient, family Exam Limitations: no limitations Patient Subjective Stated Complaint: was sitting at the home and turned to get out of her chair and began having sob and pain in upper right back. states pain is worse when exhaling. Triage Nursing Assessment: ambulated to room per self. skin w/d, color normal, resp slightly labored and shallow. is guarding with breathing. lung sounds diminished due to guarding. denies any chest pain. Physician History: was sitting at the home and turned to get out of her chair and began having sob and pain in upper right back. states pain is worse when exhaling. Denies any sub sternal chest pain, no fever, no chills Timing/Duration: today Activities at Onset: activity Severity of Dyspnea-Max: mild Severity of Dyspnea-Current: mild Possible Cause: no prior episodes Modifying Factors: Improves With: activity Associated Symptoms: chest pain/discomfort Allergies/Adverse Reactions: No Known Drug Allergies Allergy (Verified 03/08/19 10:19) Home Medications: Pravastatin Sodium 20 mg PO HS 07/10/13 [History] Budesonide/Formoterol Fumarate [Symbicort 80-4.5 Mcg Inhaler] 10.2 gm IH DAILY 02/17/18 [History] Albuterol 2.5 mg/3 ml Neb [Proventil 2.5 mg/3 ml Neb] 2.5 mg IH QIDPRN PRN 03/08/19 [History] Albuterol 8 gm Mdi Hfa [Ventolin Hfa MDI] 8 gm IH QIDPRN PRN 03/08/19 [ History] Lisinopril 20 mg PO HS 03/08/19 [History] Hx Tetanus, Diphtheria Vaccination/Date Given: No Hx Influenza Vaccination/Date Given: Yes Hx Pneumococcal Vaccination/Date Given: Yes - Review of Systems Constitutional: No Fever, No Chills Eyes: No Symptoms Ears, Nose, & Throat: No Symptoms Respiratory: Dyspnea on Exertion (PERALTA), Other (right lower chest wall pain posterior area), No Cough, No Dyspnea Cardiac: No Chest Pain, No Edema, No Syncope Abdominal/Gastrointestinal: No Abdominal Pain, No Nausea, No Vomiting, No Diarrhea Genitourinary Symptoms: No Dysuria Musculoskeletal: No Back Pain, No Neck Pain Skin: No Rash Neurological: No Dizziness, No Focal Weakness, No Sensory Changes Psychological: No Symptoms Endocrine: No Symptoms All Other Systems: Reviewed and Negative - Past Medical History Pertinent Past Medical History: Yes Neurological History: No Pertinent History ENT History: No Pertinent History Cardiac History: High Cholesterol, Hypertension Respiratory History: COPD, Other Endocrine Medical History: No Pertinent History Musculoskeletal History: Osteoporosis GI Medical History: No Pertinent History, Diverticulitis, GERD History: No Pertinent History Psycho-Social History: No Pertinent History Female Reproductive Disorders: No Pertinent History Other Medical History: seasonal allergies - Past Surgical History Past Surgical History: Yes Neuro Surgical History: No Pertinent History Cardiac: No Pertinent History Respiratory: No Pertinent History Gastrointestinal: Appendectomy, Other Genitourinary: No Pertinent History Musculoskeletal: No Pertinent History Female Surgical History: No Pertinent History Other Surgical History: diagnostic open abdominal - Social History Smoking Status: Current every day smoker How long have you smoked: 60 Exposure to second hand smoke: No Drug Use: none Patient Lives Alone: No - Female History Hx Now: No - Nursing Vital Signs Nursing Vital Signs: Initial Vital Signs Temperature 97.6 F 03/08/19 10:06 Pulse Rate 93 H 03/08/19 10:06 Respiratory Rate 24 03/08/19 10:06 Blood Pressure 171/89 03/08/19 10:06 O2 Sat by Pulse Oximetry 98 03/08/19 10:06 Pain Scale Pain Intensity 8 - Physical Exam General Appearance: no apparent distress, alert Eye Exam: PERRL/EOMI Neck Exam: normal inspection, supple Respiratory Exam: chest tenderness, diminished breath sounds, rhonchi, pleural rub Cardiovascular/Chest Exam: normal heart sounds, regular rate/rhythm Abdominal/Gastrointestinal Exam: soft, No tenderness, No distention, No mass Extremity Exam: non-tender, normal range of motion, normal inspection, no calf tenderness, no pedal edema Neurologic Exam: alert, oriented x 3, 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, 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, sensation nml, No motor deficits Skin Exam: normal color, warm, No dry SpO2 Interpretation: normal SpO2: 98 - Course Nursing assessment & vital signs reviewed: Yes EKG Interpreted by Me: Sinus Rhythm - Radiology Exams Chest X-ray Interpretation: Reviewed by me (right side 5th rib fracture nondisplaced ( posterior)) Ordered Tests: Active Orders 24 hr Category Date Time Status EKG-ER Only STAT Care 03/08/19 10:29 Active Oxygen-ED Only Nasal Cannula 2 lpm Care 03/08/19 10:27 Active CHEST 2 VIEWS (PA AND LAT) Stat Exams 03/08/19 10:28 Taken CBC W DIFF Stat Lab 03/08/19 10:40 Completed CMP Stat Lab 03/08/19 10:40 Completed NT PRO BNP Stat Lab 03/08/19 10:40 Completed TROPONIN Q3H Lab 03/08/19 10:40 Completed TROPONIN Q3H Lab 03/08/19 13:30 Ordered TROPONIN Q3H Lab 03/08/19 16:30 Ordered TROPONIN Q3H Lab 03/08/19 19:30 Ordered TROPONIN Q3H Lab 03/08/19 22:30 Ordered Incentive Spirometry TID RT 03/08/19 11:12 Active Respiratory Therapy Assessment DAILY RT 03/08/19 10:46 Completed Medication Summary Discontinued Medications Generic Name Dose Route Start Last Admin Trade Name Freq PRN Reason Stop Dose Admin Albuterol/Ipratropium 3 ml 03/08/19 10:27 03/08/19 10:45 Duoneb 0.5-3 Mg/3 Ml Neb IH 03/08/19 10:28 3 ml STAT ONE Administration Albuterol/Ipratropium Confirm 03/08/19 10:51 Duoneb 0.5-3 Mg/3 Ml Neb Administered 03/08/19 10:52 Dose 3 ml IH .STK-MED ONE Lab/Rad Data: Laboratory Result Diagrams 03/08/19 10:40 03/08/19 10:40 Laboratory Results 03/08/19 03/08/19 03/08/19 Range/Units 10:40 10:40 10:40 WBC 8.5 (4.0-10.5) K/mm3 RBC 4.52 (4.1-5.4) M/mm3 Hgb 13.9 (12.0-16.0) gm/dl Hct 42.7 (35-47) % MCV 94.5 (78-100) fl MCH 30.8 (26-32) pg MCHC 32.6 (32-36) g/dl RDW 13.9 (11.5-14.0) % Plt Count 251 (150-450) K/mm3 MPV 9.4 (6-9.5) fl Gran % 69.4 H (36.0-66.0) % Eos # (Auto) 0.34 (0-0.5) Absolute Lymphs (auto) 1.42 (1.0-4.6) Absolute Monos (auto) 0.80 (0.0-1.3) Lymphocytes % 16.7 L (24.0-44.0) % Monocytes % 9.4 (0.0-12.0) % Eosinophils % 4.0 (0.00-5.0) % Basophils % 0.5 (0.0-0.4) % Absolute Granulocytes 5.90 (1.4-6.9) Basophils # 0.04 (0-0.4) Sodium 142 (137-145) mmol/L Potassium 4.2 (3.5-5.1) mmol/L Chloride 107 (98-107) mmol/L Carbon Dioxide 29 (22-30) mmol/L Anion Gap 10.5 (5-15) MEQ/L BUN 13 (7-17) mg/dL Creatinine 0.81 (0.52-1.04) mg/dL Estimated GFR > 60.0 ML/MIN Glucose 148 H (74-106) mg/dL Calcium 8.7 (8.4-10.2) mg/dL Total Bilirubin 0.70 (0.2-1.3) mg/dL AST 25 (14-36) U/L ALT 20 (0-35) U/L Alkaline Phosphatase 109 (38-126) U/L Troponin I < 0.012 (0.000-0.034) ng/mL NT-Pro-B Natriuret Pep 98.5 (0-1800) pg/mL Serum Total Protein 7.0 (6.3-8.2) g/dL Albumin 3.9 (3.5-5.0) g/dL - Progress Progress: improved Air Movement: good Blood Culture(s) Obtained: No Antibiotics given: No Counseled pt/family regarding: lab results, diagnosis, need for follow-up, rad results (nondisplaced osteoporotic rib fracture) - Departure Departure Disposition: Home Clinical Impression: Osteoporosis, senile Right rib fracture Qualifiers: Encounter type: initial encounter Rib fracture type: single rib Fracture type: closed Qualified Code(s): S22.31XA - Fracture of one rib, right side, initial encounter for closed fracture Condition: Stable Critical Care Time: No Referrals: KENNETH JOLLY DO [Primary Care Provider] - Instructions: Rib Fractures in Adults, Rib Fracture (DC), Osteoporosis (DC) Additional Instructions: Discharge/Care Plan YG GARZON was seen on 03/08/19 in the Emergency Room. The patient was counseled regarding Diagnosis,Lab results, Imaging studies, need for follow up and when to return to the Emergency Room. Prescriptions given: Discharge Note I have spoken with the patient and/or caregivers. I have explained the patient' s condition, diagnosis and treatment plan based on the information available to me at this time. I have answered the patient's and/or caregiver's questions and addressed any concerns. The patient and/or caregivers have as good understanding of the patient's diagnosis, condition and treatment plan as can be expected at this point. The vital signs have been stable. The patient's condition is stable and appropriate for discharge from the emergency department. The patient will pursue further outpatient evaluation with the primary care physician or other designated or consulting physician as outlined in the discharge instructions. The patient and/or caregivers are agreeable to this plan of care and follow-up instructions have been explained in detail. The patient and/or caregivers have received these instruction. The patient/and or caregivers are aware that any significant change in condition or worsening of symptoms should prompt an immediate return to this or the closest emergency department or call 911. YG GARZON was seen on 03/08/19 n the Emergency Room. At that time you were treated for an emergent condition, during your visit Laboratory, Radiology and/or other procedures may have been ordered. It is very important that you follow-up with your Primary Care Physician KENNETH JOLLY DO within the next 24-48 hours to review your Emergency Room visit and the final results of testing that was ordered. Some test results such as Urine Cultures, Blood Cultures, and other cultures if ordered will not be finalized for 24-48 hours. If you do not have a Primary Care Provider please call the medical records department at [phone] to obtain a copy of your results or you may sign into our patient portal to obtain these results by visiting us @ [email or web address] and completing the following steps: 1. Click on the Patient Portal link 2. Click the Patient Self Enrollment Link to complete the enrollment form and entering your 3. Once the enrollment form is completed you will receive an email with a temporary ID and password at the email address you provided. 4. Next choose a user name and password. Your user name must be at least 4 characters long and your password must be at least 4 characters long. 5. Choose a security question from the list and provide your answer to the question. If you already have signed into the Health Portal you may access your Health Care Information 23/10 by the following steps: 1. Login to our website @ [email or web address] 2. Enter your original user name and password. FAQS [facility] Health Portal is an online tool that contains your Lab Results, Radiology Reports, Visit History, Discharge Instructions and Health Summary Lab and Radiology Results will not be available for 72 hours on the portal. The Portal is a secure site, passwords are encryted and URLs are re-written so they cannot be copied and pasted. You and authorized family members are the only ones who can access your Portal. Also there is a timeout feature that protects your information if you leave the Portal page open. If you have technical difficulty please use the Contact Us link on the page this will allow you to submit any questions you have regarding the Portal or you may contact the Medical Record Department at [phone]. Prescriptions: Lidocaine HCl 5% Patch [Lidoderm Patch 5%] 1 patch TOP BID #30 patch Naproxen 375 mg [Naprosyn 375 mg] 375 mg PO Q8H #30 tablet
[2019-03-08 10:46] LABS: BASOPHIL % 0.5 % (0.0-0.4); Basophil (Absolute #) 0.04 (0-0.4); Eosinophil (Absolute #) 0.34 (0-0.5); Hematocrit 42.7 % (35-47); Hemoglobin 13.9 gm/dl (12.0-16.0); Lymphocyte (Absolute #) 1.42 (1.0-4.6); Lymphocytes % 16.7 % (24.0-44.0); Mean Cell Volume 94.5 fl (78-100); Mean Corpuscular Hemoglobin 30.8 pg (26-32); Mean Corpuscular Hgb Concent. 32.6 g/dl (32-36); Mean Platelet Volume 9.4 fl (6-9.5); Monocytes % 9.4 % (0.0-12.0); Neutrophil % 69.4 % (36.0-66.0); Platelet Count 251 K/mm3 (150-450); Red Blood Count 4.52 M/mm3 (4.1-5.4); Red Cell Distribution Width 13.9 % (11.5-14.0); White Blood Count 8.5 K/mm3 (4.0-10.5)
[2019-03-08 11:03] LABS: ALBUMIN 3.9 g/dL (3.5-5.0); ALKALINE PHOSPHATASE 109 U/L (38-126); ANION GAP 10.5 MEQ/L (5-15); BLOOD UREA NITROGEN 13 mg/dL (7-17); CHLORIDE 107 mmol/L (98-107); Calcium 8.7 mg/dL (8.4-10.2); Carbon Dioxide 29 mmol/L (22-30); Creatinine 1 0.81 mg/dL (0.52-1.04); Glucose 148 mg/dL (74-106); NT PRO BNP 98.5 pg/mL (0-1800); Potassium 4.2 mmol/L (3.5-5.1); SGOT/AST 25 U/L (14-36); SGPT/ALT 20 U/L (0-35); SODIUM 142 mmol/L (137-145)
[2019-03-08 11:50] VITALS: BP 131/72; PULSE 90; O2SAT 96
--- NOTE | 2019-03-08 19:46 | XRAY ---
Indication: Short of breath. Comparison: February 17, 2018. PA/lateral chest again hyperinflated with minimal left base atelectasis/scarring, right lung calcified granuloma, and hiatal hernia. Remaining heart and lungs unremarkable. Bony thorax intact again with osteopenia and degenerative changes. Impression: Stable nonacute chest with chronic features.
== END 2019-03-08 11:50 | disposition home or self-care (01) ==
LOC: ED 10:03
DX: S22.31XA Fracture of one rib, right side, initial encounter for closed fracture (principal); X50.0XXA Overexertion from strenuous movement or load, initial encounter; I10 Essential (primary) hypertension; J44.9 Chronic obstructive pulmonary disease, unspecified; E78.00 Pure hypercholesterolemia, unspecified; M81.0 Age-related osteoporosis without current pathological fracture
CPT/HCPCS: 36000; 36415; 71046; 80053; 83880; 84484; 85025; 93005; 94640; 99284; A9270-GY

== ENCOUNTER 2019-03-21 19:47 | Inpatient (IN) | payer MEDICARE ==
[2019-03-21] MEDS ORDERED: Sodium Chloride 0.9% 1000 ML 1,000 ML IV STA (19:57)
[2019-03-21] MEDS ORDERED: DUONEB 0.5-3 MG/3 ml Neb IH ONE ×2 (19:57→20:22)
[2019-03-21] MEDS ORDERED: MORPHINE SULFATE 4 MG INJ IV ONE ×2 (20:02→21:16)
[2019-03-21] MEDS ORDERED: Sodium Chloride 0.9% 1000 ML 1,000 ML ONE (20:03)
[2019-03-21] MEDS ORDERED: MORPHINE SULFATE 4 MG INJ ONE ×2 (20:03→21:19)
--- NOTE | 2019-03-21 20:05 | ERPHSYRPT ---
- History of Present Illness Time Seen by Provider: 03/21/19 19:50 Source: patient Exam Limitations: no limitations Physician History: Patient broke ribs approximately 2 weeks ago. Patient has a history of COPD and was doing incentive spirometry. Patient has not followed up since she felt she was doing better but then had severe pain today, causing her to have shortness of breath. Timing/Duration: today Severity of Dyspnea-Max: severe Severity of Dyspnea-Current: mild Possible Cause: occasional episodes (injury two weeks ago) Modifying Factors: Worsens With: coughing, deep breath Associated Symptoms: intermittent, cough, chest pain/discomfort, wheezing, painful breathing, tightness, No edema, No fever, No insomnia, No loss of appetite, No lightheadedness, No weakness, No ankle swelling, No chills, No hemoptysis, No calf pain, No dizziness, No heaviness, No heart racing, No lightheadedness, No leg swelling, No muscle spasms feet, No muscle spasms hands , No productive cough, No sweating, No tingling face, No tingling hands International travel in last 2 weeks: No Allergies/Adverse Reactions: No Known Drug Allergies Allergy (Verified 03/21/19 20:33) Home Medications: Budesonide/Formoterol Fumarate [Symbicort 80-4.5 Mcg Inhaler] 10.2 gm IH DAILY 02/17/18 [History] Albuterol 2.5 mg/3 ml Neb [Proventil 2.5 mg/3 ml Neb] 2.5 mg IH QIDPRN PRN 03/08/19 [History] Albuterol 8 gm Mdi Hfa [Ventolin Hfa MDI] 8 gm IH QIDPRN PRN 03/08/19 [ History] Lisinopril 20 mg PO HS 03/08/19 [History] Ergocalciferol (Vitamin D2) [Vitamin D] 50,000 unit PO UD 03/21/19 [History] Lovastatin 20 mg PO DAILY 03/21/19 [History] Hx Tetanus, Diphtheria Vaccination/Date Given: No Hx Influenza Vaccination/Date Given: Yes Hx Pneumococcal Vaccination/Date Given: Yes - Review of Systems Constitutional: No Fever, No Chills, No Fatigue Eyes: No Eye Pain, No Vision Changes Ears, Nose, & Throat: No Nose Congestion, No Epistaxis, No Mouth Pain, No Throat Pain, No Painful Swallowing Respiratory: Cough, Dyspnea Cardiac: Chest Pain, No Edema, No Syncope Abdominal/Gastrointestinal: No Abdominal Pain, No Nausea, No Vomiting, No Diarrhea, No Hematemesis, No Hematochezia, No Melena Genitourinary Symptoms: No Dysuria, No Hematuria, No Flank Pain Musculoskeletal: Back Pain (thoracic area only), No Neck Pain, No Deformity, No Joint Pain Skin: No Rash Neurological: No Dizziness, No Focal Weakness, No Headache, No Parasthesia, No Sensory Changes, No Tremors Psychological: Anxiety, No Emotional Lability Endocrine: No Excessive Sweating Hematologic/Lymphatic: No Easy Bleeding, No Easy Bruising All Other Systems: Reviewed and Negative - Past Medical History Pertinent Past Medical History: Yes Neurological History: No Pertinent History ENT History: No Pertinent History Cardiac History: High Cholesterol, Hypertension Respiratory History: COPD, Other Endocrine Medical History: No Pertinent History Musculoskeletal History: Osteoporosis GI Medical History: No Pertinent History, Diverticulitis, GERD History: No Pertinent History Psycho-Social History: No Pertinent History Female Reproductive Disorders: No Pertinent History Other Medical History: seasonal allergies - Past Surgical History Past Surgical History: Yes Neuro Surgical History: No Pertinent History Cardiac: No Pertinent History Respiratory: No Pertinent History Gastrointestinal: Appendectomy, Other Genitourinary: No Pertinent History Musculoskeletal: No Pertinent History Female Surgical History: No Pertinent History Other Surgical History: diagnostic open abdominal - Social History Smoking Status: Current every day smoker How long have you smoked: 60 Exposure to second hand smoke: No Drug Use: none Patient Lives Alone: No - Nursing Vital Signs Nursing Vital Signs: Initial Vital Signs Pulse Rate 118 H 03/21/19 19:48 Respiratory Rate 22 03/21/19 19:48 Blood Pressure 184/99 03/21/19 19:48 O2 Sat by Pulse Oximetry 97 03/21/19 19:48 Pain Scale Pain Intensity 3 - Physical Exam General Appearance: no apparent distress, alert Eye Exam: PERRL/EOMI Ears, Nose, Throat Exam: hearing grossly normal, normal ENT inspection, normal pharynx Neck Exam: normal inspection, non-tender, supple, full range of motion, No Brudzinski Respiratory Exam: chest tenderness, airway intact, diminished breath sounds, prolonged expirations, rhonchi, wheezing, No lungs clear, No respiratory distress, No accessory muscle use Cardiovascular/Chest Exam: normal heart sounds, regular rate/rhythm, normal peripheral pulses, No JVD Abdominal/Gastrointestinal Exam: soft, No tenderness, No distention, No mass Extremity Exam: non-tender, normal range of motion, normal inspection, normal capillary refill, no calf tenderness, no pedal edema Neurologic Exam: alert, oriented x 3, cooperative, 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 No pneumatocele. No pulmonary consolidation. If his status changes the lungs. No pneumothorax or pleural effusion. No aortic injury. Anterior wedge compression fracture of T8. Indications of 57 consistent with an intervertebral disc herniation. Decrease in the height of the T9 vertebral body. Decrease in height by about 20%.), Other Ordered Tests: Active Orders 24 hr Category Date Time Status Stock Wetter STAT Care 03/21/19 19:58 Active EKG-ER Only STAT Care 03/21/19 19:57 Active IV Insertion STAT Care 03/21/19 19:57 Active NPO (ED) STAT Care 03/21/19 19:57 Active Oxygen-ED Only Nasal Cannula 2 lpm Care 03/21/19 20:09 Active CHEST WITH CONTRAST [CT] Stat Exams 03/21/19 19:58 Taken AMYLASE Stat Lab 03/21/19 19:58 Completed BLOOD CULTURE Stat Lab 03/21/19 20:13 Received CBC W DIFF Stat Lab 03/21/19 19:58 Completed CMP Stat Lab 03/21/19 19:58 Completed LIPASE Stat Lab 03/21/19 19:58 Completed Lactic Acid Stat Lab 03/21/19 22:30 Results MAGNESIUM Stat Lab 03/21/19 19:58 Completed NT PRO BNP Stat Lab 03/21/19 19:58 Completed PROTIME WITH INR Stat Lab 03/21/19 19:58 Completed PTT Stat Lab 03/21/19 19:58 Completed TROPONIN Q3H Lab 03/21/19 19:58 Completed TROPONIN Q3H Lab 03/21/19 23:06 Completed TROPONIN Q3H Lab 03/22/19 02:00 Ordered TROPONIN Q3H Lab 03/22/19 05:00 Ordered TROPONIN Q3H Lab 03/22/19 08:00 Ordered UA W/RFX UR CULTURE Stat Lab 03/21/19 22:00 Completed VENOUS BLOOD GAS Stat Lab 03/21/19 22:30 Results Respiratory Therapy Assessment DAILY RT 03/21/19 20:28 Completed Transfer Order Routine Transfer 03/21/19 Ordered Medication Summary Discontinued Medications Generic Name Dose Route Start Last Admin Trade Name Freq PRN Reason Stop Dose Admin Al Hydrox/Mg Hydrox/Simethicone Confirm 03/21/19 20:28 Maalox Es 30 Ml Unit Dose Administered 03/21/19 20:29 Dose 30 ml .ROUTE .STK-MED ONE Al Hydrox/Mg Hydrox/Simethicone 30 ml 03/21/19 20:38 03/21/19 20:39 Maalox Es 30 Ml Unit Dose PO 03/21/19 20:39 30 ml STAT ONE Administration Albuterol/Ipratropium 3 ml 03/21/19 19:57 03/21/19 20:23 Duoneb 0.5-3 Mg/3 Ml Neb IH 03/21/19 19:58 3 ml STAT ONE Administration Albuterol/Ipratropium Confirm 03/21/19 20:22 Duoneb 0.5-3 Mg/3 Ml Neb Administered 03/21/19 20:23 Dose 3 ml IH .STK-MED ONE Famotidine Confirm 03/21/19 20:27 Pepcid 20 Mg Vial Administered 03/21/19 20:28 Dose 20 mg IV .STK-MED ONE Famotidine 20 mg 03/21/19 20:38 03/21/19 20:39 Pepcid 20 Mg Vial IV 03/21/19 20:39 20 mg STAT ONE Administration Sodium Chloride 1,000 mls @ 999 mls/hr 03/21/19 19:57 03/21/19 21:06 Sodium Chloride 0.9% 1000 Ml IV 03/21/19 20:57 Infused .Q1H1M STA Infusion Sodium Chloride Confirm 03/21/19 20:03 Sodium Chloride 0.9% 1000 Ml Administered 03/21/19 20:04 Dose 1,000 mls @ ud .ROUTE .STK-MED ONE Morphine Sulfate 4 mg 03/21/19 20:02 03/21/19 20:05 Morphine Sulfate 4 Mg Inj IV 03/21/19 20:03 4 mg STAT ONE Administration Morphine Sulfate Confirm 03/21/19 20:03 Morphine Sulfate 4 Mg Inj Administered 03/21/19 20:04 Dose 4 mg .ROUTE .STK-MED ONE Morphine Sulfate 4 mg 03/21/19 21:16 03/21/19 21:21 Morphine Sulfate 4 Mg Inj IV 03/21/19 21:17 4 mg STAT ONE Administration Morphine Sulfate Confirm 03/21/19 21:19 Morphine Sulfate 4 Mg Inj Administered 03/21/19 21:20 Dose 4 mg .ROUTE .STK-MED ONE Lab/Rad Data: Laboratory Result Diagrams 03/21/19 19:58 03/21/19 19:58 Laboratory Results 03/21/19 03/21/19 03/21/19 Range/Units 23:06 22:30 22:00 WBC (4.0-10.5) K/mm3 RBC (4.1-5.4) M/mm3 Hgb (12.0-16.0) gm/dl Hct (35-47) % MCV (78-100) fl MCH (26-32) pg MCHC (32-36) g/dl RDW (11.5-14.0) % Plt Count (150-450) K/mm3 MPV (6-9.5) fl Gran % (36.0-66.0) % Eos # (Auto) (0-0.5) Absolute Lymphs (auto) (1.0-4.6) Absolute Monos (auto) (0.0-1.3) Lymphocytes % (24.0-44.0) % Monocytes % (0.0-12.0) % Eosinophils % (0.00-5.0) % Basophils % (0.0-0.4) % Absolute Granulocytes (1.4-6.9) Basophils # (0-0.4) PT (9.95-12.35) SECONDS INR (0.8-3.0) APTT (25.3-37.0) SECONDS pO2/FiO2 Ratio 21 % VBG pH 7.35 (7.32-7.42) VBG pCO2 at Pat Temp 47 (42-55) mm/Hg VBG pO2 at Pat Temp 28 (25-40) mm/Hg VBG HCO3 25.9 (22-28) meq/L VBG O2 Sat (Yuri) 62 L (95-100) VBG Base Excess -0.3 (-2.0-2.0) VBG Hemoglobin 59 VBG Carboxyhemoglobin 5.1 (0.0-6.9) % T HGB POC Potassium 4.3 (3.5-5.1) Sodium (137-145) mmol/L Potassium (3.5-5.1) mmol/L Chloride (98-107) mmol/L Carbon Dioxide (22-30) mmol/L Anion Gap (5-15) MEQ/L BUN (7-17) mg/dL Creatinine (0.52-1.04) mg/dL Estimated GFR ML/MIN Glucose (74-106) mg/dL Lactic Acid 2.3 H (0.4-2.0) Calcium (8.4-10.2) mg/dL Magnesium (1.6-2.3) mg/dL Total Bilirubin (0.2-1.3) mg/dL AST (14-36) U/L ALT (0-35) U/L Alkaline Phosphatase (38-126) U/L Troponin I < 0.012 (0.000-0.034) ng/mL NT-Pro-B Natriuret Pep (0-1800) pg/mL Serum Total Protein (6.3-8.2) g/dL Albumin (3.5-5.0) g/dL Amylase (30-110) U/L Lipase (23-300) U/L Urine Color STRAW (YELLOW) Urine Appearance CLEAR (CLEAR) Urine pH 6.0 (5-6) Ur Specific [place] 1.005 (1.005-1.025) Urine Protein NEGATIVE (Negative) Urine Ketones NEGATIVE (NEGATIVE) Urine Blood NEGATIVE (0-5) Luke/ul Urine Nitrite NEGATIVE (NEGATIVE) Urine Bilirubin NEGATIVE (NEGATIVE) Urine Urobilinogen NEGATIVE (0-1) mg/dL Ur Leukocyte Esterase NEGATIVE (NEGATIVE) Urine WBC (Auto) NONE (0-5) /HPF Urine RBC (Auto) NONE (0-2) /HPF U Epithel Cells (Auto) NONE (FEW) /HPF Urine Culture Reflexed NO (NO) Urine Glucose NEGATIVE (NEGATIVE) mg/dL 03/21/19 03/21/19 03/21/19 Range/Units 19:58 19:58 19:58 WBC (4.0-10.5) K/mm3 RBC (4.1-5.4) M/mm3 Hgb (12.0-16.0) gm/dl Hct (35-47) % MCV (78-100) fl MCH (26-32) pg MCHC (32-36) g/dl RDW (11.5-14.0) % Plt Count (150-450) K/mm3 MPV (6-9.5) fl Gran % (36.0-66.0) % Eos # (Auto) (0-0.5) Absolute Lymphs (auto) (1.0-4.6) Absolute Monos (auto) (0.0-1.3) Lymphocytes % (24.0-44.0) % Monocytes % (0.0-12.0) % Eosinophils % (0.00-5.0) % Basophils % (0.0-0.4) % Absolute Granulocytes (1.4-6.9) Basophils # (0-0.4) PT 12.1 (9.95-12.35) SECONDS INR 1.07 (0.8-3.0) APTT 33.8 (25.3-37.0) SECONDS pO2/FiO2 Ratio % VBG pH (7.32-7.42) VBG pCO2 at Pat Temp (42-55) mm/Hg VBG pO2 at Pat Temp (25-40) mm/Hg VBG HCO3 (22-28) meq/L VBG O2 Sat (Yuri) (95-100) VBG Base Excess (-2.0-2.0) VBG Hemoglobin VBG Carboxyhemoglobin (0.0-6.9) % T HGB POC Potassium (3.5-5.1) Sodium (137-145) mmol/L Potassium (3.5-5.1) mmol/L Chloride (98-107) mmol/L Carbon Dioxide (22-30) mmol/L Anion Gap (5-15) MEQ/L BUN (7-17) mg/dL Creatinine (0.52-1.04) mg/dL Estimated GFR ML/MIN Glucose (74-106) mg/dL Lactic Acid (0.4-2.0) Calcium (8.4-10.2) mg/dL Magnesium (1.6-2.3) mg/dL Total Bilirubin (0.2-1.3) mg/dL AST (14-36) U/L ALT (0-35) U/L Alkaline Phosphatase (38-126) U/L Troponin I < 0.012 (0.000-0.034) ng/mL NT-Pro-B Natriuret Pep (0-1800) pg/mL Serum Total Protein (6.3-8.2) g/dL Albumin (3.5-5.0) g/dL Amylase 63 (30-110) U/L Lipase 41 (23-300) U/L Urine Color (YELLOW) Urine Appearance (CLEAR) Urine pH (5-6) Ur Specific [place] (1.005-1.025) Urine Protein (Negative) Urine Ketones (NEGATIVE) Urine Blood (0-5) Luke/ul Urine Nitrite (NEGATIVE) Urine Bilirubin (NEGATIVE) Urine Urobilinogen (0-1) mg/dL Ur Leukocyte Esterase (NEGATIVE) Urine WBC (Auto) (0-5) /HPF Urine RBC (Auto) (0-2) /HPF U Epithel Cells (Auto) (FEW) /HPF Urine Culture Reflexed (NO) Urine Glucose (NEGATIVE) mg/dL 03/21/19 03/21/19 Range/Units 19:58 19:58 WBC 8.6 (4.0-10.5) K/mm3 RBC 4.45 (4.1-5.4) M/mm3 Hgb 13.7 (12.0-16.0) gm/dl Hct 41.3 (35-47) % MCV 92.8 (78-100) fl MCH 30.8 (26-32) pg MCHC 33.2 (32-36) g/dl RDW 14.0 (11.5-14.0) % Plt Count 325 (150-450) K/mm3 MPV 9.1 (6-9.5) fl Gran % 74.7 H (36.0-66.0) % Eos # (Auto) 0.06 (0-0.5) Absolute Lymphs (auto) 1.50 (1.0-4.6) Absolute Monos (auto) 0.59 (0.0-1.3) Lymphocytes % 17.5 L (24.0-44.0) % Monocytes % 6.9 (0.0-12.0) % Eosinophils % 0.7 (0.00-5.0) % Basophils % 0.2 (0.0-0.4) % Absolute Granulocytes 6.42 (1.4-6.9) Basophils # 0.02 (0-0.4) PT (9.95-12.35) SECONDS INR (0.8-3.0) APTT (25.3-37.0) SECONDS pO2/FiO2 Ratio % VBG pH (7.32-7.42) VBG pCO2 at Pat Temp (42-55) mm/Hg VBG pO2 at Pat Temp (25-40) mm/Hg VBG HCO3 (22-28) meq/L VBG O2 Sat (Yuri) (95-100) VBG Base Excess (-2.0-2.0) VBG Hemoglobin VBG Carboxyhemoglobin (0.0-6.9) % T HGB POC Potassium (3.5-5.1) Sodium 141 (137-145) mmol/L Potassium 3.7 (3.5-5.1) mmol/L Chloride 107 (98-107) mmol/L Carbon Dioxide 26 (22-30) mmol/L Anion Gap 12.1 (5-15) MEQ/L BUN 22 H (7-17) mg/dL Creatinine 0.65 (0.52-1.04) mg/dL Estimated GFR > 60.0 ML/MIN Glucose 198 H (74-106) mg/dL Lactic Acid (0.4-2.0) Calcium 9.3 (8.4-10.2) mg/dL Magnesium 2.1 (1.6-2.3) mg/dL Total Bilirubin 0.30 (0.2-1.3) mg/dL AST 26 (14-36) U/L ALT 21 (0-35) U/L Alkaline Phosphatase 112 (38-126) U/L Troponin I (0.000-0.034) ng/mL NT-Pro-B Natriuret Pep 123 (0-1800) pg/mL Serum Total Protein 7.7 (6.3-8.2) g/dL Albumin 4.2 (3.5-5.0) g/dL Amylase (30-110) U/L Lipase (23-300) U/L Urine Color (YELLOW) Urine Appearance (CLEAR) Urine pH (5-6) Ur Specific [place] (1.005-1.025) Urine Protein (Negative) Urine Ketones (NEGATIVE) Urine Blood (0-5) Luke/ul Urine Nitrite (NEGATIVE) Urine Bilirubin (NEGATIVE) Urine Urobilinogen (0-1) mg/dL Ur Leukocyte Esterase (NEGATIVE) Urine WBC (Auto) (0-5) /HPF Urine RBC (Auto) (0-2) /HPF U Epithel Cells (Auto) (FEW) /HPF Urine Culture Reflexed (NO) Urine Glucose (NEGATIVE) mg/dL - Progress Progress: re-examined Air Movement: good Progress Note: 03/21/19 21:16 Pain returned after improving with initial Morphine 4mg IV times one 03/21/19 22:40 Patient is in no type of respiratory distress. Patient's pain has improved after second dose of Morphine Blood Culture(s) Obtained: Yes Antibiotics given: No Discussed with : Abraham (@22:45, spoke with Dr Jordan, hospitalist. Dr Jordan accepted the patient for observation to [facility] telemetry) Will see patient in: hospital (observation) Counseled pt/family regarding: lab results, diagnosis, need for follow-up, rad results - Departure Departure Disposition: Observation ([facility] telemetry) Clinical Impression: Intractable back pain Thoracic compression fracture Qualifiers: Encounter type: initial encounter Thoracic vertebra fracture level: T9 Qualified Code(s): S22.070A - Wedge compression fracture of T9-T10 vertebra, initial encounter for closed fracture COPD (chronic obstructive pulmonary disease) Qualifiers: Chronic bronchitis type: simple Hypertension Qualifiers: Hypertension type: essential hypertension Qualified Code(s): I10 - Essential ( primary) hypertension Condition: Fair Critical Care Time: No Referrals: KENNETH JORDAN DO [Primary Care Provider] - Instructions: Chronic Obstructive Pulmonary Disease
[2019-03-21 20:20] LABS: Absolute Neutrophil Ct (ANC) 6.42 (1.4-6.9); BASOPHIL % 0.2 % (0.0-0.4); Basophil (Absolute #) 0.02 (0-0.4); Eosinophil % 0.7 % (0.00-5.0); Eosinophil (Absolute #) 0.06 (0-0.5); Hematocrit 41.3 % (35-47); Hemoglobin 13.7 gm/dl (12.0-16.0); Lymphocytes % 17.5 % (24.0-44.0); Mean Cell Volume 92.8 fl (78-100); Mean Corpuscular Hemoglobin 30.8 pg (26-32); Mean Corpuscular Hgb Concent. 33.2 g/dl (32-36); Mean Platelet Volume 9.1 fl (6-9.5); Monocyte (Absolute #) 0.59 (0.0-1.3); Monocytes % 6.9 % (0.0-12.0); Neutrophil % 74.7 % (36.0-66.0); Platelet Count 325 K/mm3 (150-450); Red Blood Count 4.45 M/mm3 (4.1-5.4); White Blood Count 8.6 K/mm3 (4.0-10.5)
[2019-03-21 20:27] LABS: INR 1.07 (0.8-3.0); PROTIME 12.1 SECONDS (9.95-12.35)
[2019-03-21] MEDS ORDERED: Pepcid 20 MG VIAL IV ONE ×2 (20:27→20:38)
[2019-03-21] MEDS ORDERED: MAALOX ES 30 ML UNIT DOSE ONE (20:28)
[2019-03-21 20:30] LABS: AMYLASE 63 U/L (30-110); LIPASE 41 U/L (23-300)
[2019-03-21] MEDS ORDERED: MAALOX ES 30 ML UNIT DOSE PO ONE (20:38)
[2019-03-21 20:40] LABS: ALBUMIN 4.2 g/dL (3.5-5.0); ALKALINE PHOSPHATASE 112 U/L (38-126); ANION GAP 12.1 MEQ/L (5-15); BLOOD UREA NITROGEN 22 mg/dL (7-17); CHLORIDE 107 mmol/L (98-107); Calcium 9.3 mg/dL (8.4-10.2); Carbon Dioxide 26 mmol/L (22-30); Creatinine 1 0.65 mg/dL (0.52-1.04); Glucose 198 mg/dL (74-106); MAGNESIUM 2.1 mg/dL (1.6-2.3); NT PRO BNP 123 pg/mL (0-1800); Potassium 3.7 mmol/L (3.5-5.1); SGOT/AST 26 U/L (14-36); SGPT/ALT 21 U/L (0-35); SODIUM 141 mmol/L (137-145); Total Protein 7.7 g/dL (6.3-8.2)
[2019-03-21 20:50] LABS: PTT 33.8 SECONDS (25.3-37.0)
[2019-03-21 22:34] LABS: Lactic Acid 2.3 (0.4-2.0); VBG BASE EXCESS -0.3 (-2.0-2.0); VBG CARBOXYHEMOGLOBIN 5.1 % T HGB (0.0-6.9); VBG HCO3- 25.9 meq/L (22-28); VBG PCO2 47 mm/Hg (42-55); VBG PO2 28 mm/Hg (25-40); VBG POTASSIUM 4.3 (3.5-5.1); VBG pH 7.35 (7.32-7.42)
[2019-03-21 22:35] LABS: VBG FIO2 21 %; VBG HEMOGLOBIN 59; VBG O2 SATURATION 62 (95-100)
[2019-03-21 22:36] LABS: Appearance CLEAR (CLEAR); Bilirubin NEGATIVE (NEGATIVE); Blood NEGATIVE Ery/ul (0-5); Glucose NEGATIVE (NEGATIVE); Ketones NEGATIVE (NEGATIVE); Leukocyte Esterase NEGATIVE (NEGATIVE); Nitrite NEGATIVE (NEGATIVE); Protein,Urine Dip NEGATIVE (Negative); Specific Gravity 1.005 (1.005-1.025); Urobilinogen NEGATIVE mg/dL (0-1)
[2019-03-21] MEDS ORDERED: TYLENOL 325 MG PO PRN (23:56)
[2019-03-22] MEDS: MORPHINE SULFATE 4 MG INJ IV PRN ×4 (00:28→21:16)
[2019-03-22] MEDS ORDERED: DUONEB 0.5-3 MG/3 ml Neb IH SCH ×2 (01:00→03:00)
[2019-03-22] MEDS: TYLENOL 325 MG PO PRN (02:53)
[2019-03-22] MEDS: DUONEB 0.5-3 MG/3 ml Neb IH SCH ×3 (09:35→17:21)
--- NOTE | 2019-03-22 09:36 | XRAY ---
Indication: Rib pain following fall 2 weeks ago. Multiple contiguous axial images obtained through the chest using 80 cc Isovue 370 contrast. Comparison: April 18, 2018. Lungs again demonstrates pulmonary emphysema with scattered fibrosis/scarring and right lower lobe calcified granuloma. No suspicious pulmonary mass, infiltrate, or effusion. Heart is not enlarged. Aorta remains arteriosclerotic without aneurysm/dissection. No pathologic mediastinal/hilar lymphadenopathy. There remains moderate sized hiatal hernia with fluid distended stomach presumed from gastroesophageal reflux. Bony thorax again demonstrates osteopenia, mild degenerative changes throughout the spine, and remote T8 compression fracture. Limited upper abdomen again demonstrates bilateral adrenal hypertrophy, gallstones, and right renal cyst. Impression: 1. Stable pulmonary emphysema, scattered fibrosis/scarring, hiatal hernia with evidence for gastroesophageal reflux, bilateral adrenal hypertrophy, gallstones, chronic bony findings, and evidence for old granulomatous disease. 2. Remaining CT chest without contrast exam is negative. Comment: Preliminary interpretation was made by [facility]. No critical discrepancy. CTDI is 11.93
[2019-03-22] MEDS: Pepcid 20 MG PO SCH ×2 (09:47→21:17)
[2019-03-22] MEDS: ENOXAPARIN SODIUM SQ SCH (09:47)
[2019-03-22] MEDS: MAALOX ES 30 ML UNIT DOSE PO PRN (16:13)
[2019-03-22] MEDS: Zofran 4 MG/2 ML VIAL IV PRN (16:13)
[2019-03-22] MEDS: Carafate 1 GM PO SCH (17:21)
[2019-03-22] MEDS: Lidoderm Patch 5% TOP SCH (17:21)
[2019-03-22] MEDS: Reglan 10 MG PO SCH (17:21)
[2019-03-22] MEDS ORDERED: Sodium Chloride 0.9% 1000 ML 1,000 ML IV SCH (18:00)
[2019-03-22] MEDS: PROTONIX 40 MG IV IV SCH (18:03)
[2019-03-22] MEDS: PERCOCET TABLET 5/325MG PO PRN (18:04)
[2019-03-22] MEDS: Zestril 20 MG PO SCH (22:49)
[2019-03-23] MEDS: PERCOCET TABLET 5/325MG PO PRN ×4 (00:01→22:55)
[2019-03-23] MEDS: DUONEB 0.5-3 MG/3 ml Neb IH SCH ×4 (01:00→19:10)
[2019-03-23] MEDS: Zofran 4 MG/2 ML VIAL IV PRN ×2 (02:44→13:16)
[2019-03-23] MEDS: MORPHINE SULFATE 4 MG INJ IV PRN ×3 (02:49→12:59)
[2019-03-23] MEDS: MAALOX ES 30 ML UNIT DOSE PO PRN (04:46)
[2019-03-23] MEDS ORDERED: MORPHINE SULFATE 4 MG INJ ONE (06:37)
[2019-03-23] MEDS ORDERED: Ventolin Hfa MDI IH PRN (08:12)
[2019-03-23] MEDS ORDERED: PROVENTIL COMMON CANISTER IH PRN (08:15)
[2019-03-23] MEDS: Lidoderm Patch 5% TOP SCH (09:27)
[2019-03-23] MEDS: ENOXAPARIN SODIUM SQ SCH (09:27)
[2019-03-23] MEDS: VITAMIN D2 PO SCH (09:28)
[2019-03-23] MEDS: Pepcid 20 MG PO SCH ×2 (09:28→22:55)
[2019-03-23] MEDS: Zocor 10MG PO SCH (09:28)
[2019-03-23] MEDS: Carafate 1 GM PO SCH ×3 (09:28→17:48)
[2019-03-23] MEDS: Advair Hfa 115/21 Common canister IH SCH ×2 (09:29→19:11)
[2019-03-23] MEDS: Reglan 10 MG PO SCH ×3 (09:29→17:48)
[2019-03-23] MEDS ORDERED: [UNRECOGNIZED DRUG - OTHER] IH SCH (10:00)
[2019-03-23] MEDS ORDERED: BUDESONIDE IH SCH (10:00)
[2019-03-23] MEDS ORDERED: FORMOTEROL FUMARATE IH SCH (10:00)
[2019-03-23] MEDS ORDERED: NON-FORMULARY ITEM (Lovastatin [Lovastatin] 20 MG) PO SCH (10:00)
[2019-03-23] MEDS: PROTONIX 40 MG IV IV SCH ×2 (17:48→19:01)
--- NOTE | 2019-03-23 19:04 | PCM.HP ---
History of Present Illness - Chief Complaint Chief Complaint: Intractable pain, Thoracic Vertebral fractures, COPD Date: 03/22/19 History of Present Illness: is a 79 year old female with COPD just finished 2 week course of Prednisone from [facility] and developed acute mid back pain. She presented to ER found to have T8 compression fracture and is admitted for pain control. Medications & Allergies Home Medications: Home Medication List Budesonide/Formoterol Fumarate [Symbicort 80-4.5 Mcg Inhaler] 10.2 gm IH BID [History Confirmed 03/22/19] Albuterol 2.5 mg/3 ml Neb [Proventil 2.5 mg/3 ml Neb] 2.5 mg IH BID [History Confirmed 03/22/19] Albuterol 8 gm Mdi Hfa [Ventolin Hfa MDI] 8 gm IH QIDPRN PRN 03/08/19 [ History Confirmed 03/21/19] Lisinopril 20 mg PO HS 03/08/19 [History Confirmed 03/21/19] Naproxen 375 mg [Naprosyn 375 mg] 375 mg PO Q8H #30 tablet 03/08/19 [Rx Confirmed 03/21/19] Ergocalciferol (Vitamin D2) [Vitamin D] 50,000 unit PO UD 03/21/19 [History Confirmed 03/22/19] Lovastatin 20 mg PO DAILY 03/21/19 [History Confirmed 03/21/19] Aspirin EC 325 mg [Ecotrin 325 MG] 325 mg PO QID PRN PRN 03/22/19 [ History Confirmed 03/22/19] Lidocaine HCl 5% Patch [Lidoderm Patch 5%] 1 patch TOP DAILY 03/22/19 [ History Confirmed 03/22/19] Allergies/Adverse Reactions: Allergies Allergy/AdvReac Type Severity Reaction Status Date / Time metformin AdvReac Verified 03/22/19 00:59 - Past Medical History Past Medical History: Yes Neurological History: No Pertinent History ENT History: No Pertinent History Cardiac History: High Cholesterol, Hypertension Respiratory History: COPD, Other Endocrine Medical History: No Pertinent History Musculoskelatal History: Osteoporosis GI Medical History: No Pertinent History, Diverticulitis, GERD History: No Pertinent History Pyscho-Social History: No Pertinent History Reproductive Disorders: No Pertinent History Comment: seasonal allergies - Past Surgical History Past Surgical History: Yes Neuro Surgical History: No Pertinent History Cardiac History: No Pertinent History Respiratory Surgery: No Pertinent History GI Surgical History: Appendectomy, Other Genitourinary Surgical Hx: No Pertinent History Musculskeletal Surgical Hx: No Pertinent History Female Surgical History: No Pertinent History Other Surgical History: diagnostic open abdominal, ankle fx and surgery - Social History Smoking Status: Light tobacco smoker How long have you smoked: 60 Exposure to second hand smoke: No Alcohol: None Drug Use: none - Physical Exam Vital Signs: Vital Signs - 24 hr Temp Pulse Resp BP Pulse Ox 03/23/19 16:00 98.5 F 112 H 18 147/69 95 03/23/19 15:35 102 H 18 95 03/23/19 12:00 98.1 F 98 H 18 175/86 90 L 03/23/19 09:30 93 H 22 87 L 03/23/19 08:00 97.7 F 74 18 139/76 91 L 03/23/19 04:00 98.4 F 89 20 174/84 91 L 03/23/19 01:00 89 20 94 L 03/23/19 00:12 98.3 F 93 H 24 173/83 93 L 03/22/19 20:00 98.2 F 86 20 139/68 92 L Oxygen-Last 24 hours O2 Percentage 2 Liters = 28% Results - Labs Lab/Micro Results: Microbiology 03/21/19 20:13 Blood Culture - Preliminary Blood NO GROWTH TO DATE 03/21/19 20:09 Blood Culture - Preliminary Blood NO GROWTH TO DATE - Radiology Impressions Radiology Exams & Impressions: Radiology Procedures Category Date Time Status CHEST WITH CONTRAST [CT] Stat Exams 03/21/19 19:58 Completed
--- NOTE | 2019-03-23 19:08 | PCM.NOTE ---
Date and Time: 03/23/191905 Subjective Assessment: Patient is getting back pain relief from current meds,she falls asleep and then wakes with gradually increasing pain but better than yesterday. OBJECTIVE DATA Vital Signs: Vital Signs - 24 hr Temp Pulse Resp BP Pulse Ox 03/23/19 16:00 98.5 F 112 H 18 147/69 95 03/23/19 15:35 102 H 18 95 03/23/19 12:00 98.1 F 98 H 18 175/86 90 L 03/23/19 09:30 93 H 22 87 L 03/23/19 08:00 97.7 F 74 18 139/76 91 L 03/23/19 04:00 98.4 F 89 20 174/84 91 L 03/23/19 01:00 89 20 94 L 03/23/19 00:12 98.3 F 93 H 24 173/83 93 L 03/22/19 20:00 98.2 F 86 20 139/68 92 L Oxygen-Last 24 hours O2 Percentage 2 Liters = 28% Pain Assessment - Last Documented Pain Intensity 5 Pain Scale Used 0-10 Pain Scale Intake and Output: Intake & Output 03/21/19 03/22/19 03/23/19 03/24/19 11:59 11:59 11:59 11:59 Intake Total 440 2806 360 Output Total 400 1200 Balance 40 1606 360 Weight 79.7 kg 82.4 kg 82.4 kg Radiology Exams: Radiology Procedures Category Date Time Status CHEST WITH CONTRAST [CT] Stat Exams 03/21/19 19:58 Completed
[2019-03-23] MEDS: Protonix 40MG Tablet PO SCH (20:05)
[2019-03-23] MEDS: Miralax Powder 17GM PACKET PO SCH (20:05)
[2019-03-23] MEDS: Zestril 20 MG PO SCH (22:55)
[2019-03-24] MEDS: PERCOCET TABLET 5/325MG PO PRN ×4 (03:18→23:51)
[2019-03-24] MEDS ORDERED: Sodium Chloride 0.9% 10 ML FLUSH Syringe IV SCH (06:00)
[2019-03-24] MEDS: DUONEB 0.5-3 MG/3 ml Neb IH SCH ×4 (06:40→19:52)
[2019-03-24] MEDS: Advair Hfa 115/21 Common canister IH SCH ×2 (06:40→19:54)
[2019-03-24] MEDS: Reglan 10 MG PO SCH ×3 (08:28→16:41)
[2019-03-24] MEDS: Carafate 1 GM PO SCH ×3 (08:29→16:42)
[2019-03-24] MEDS: Miralax Powder 17GM PACKET PO SCH (10:24)
[2019-03-24] MEDS: Lidoderm Patch 5% TOP SCH (10:24)
[2019-03-24] MEDS: Pepcid 20 MG PO SCH ×2 (10:25→20:22)
[2019-03-24] MEDS: Protonix 40MG Tablet PO SCH (10:25)
[2019-03-24] MEDS: Zocor 10MG PO SCH (10:26)
[2019-03-24] MEDS: ENOXAPARIN SODIUM SQ SCH (10:26)
[2019-03-24] MEDS ORDERED: DULCOLAX 5 MG PO PRN (13:18)
[2019-03-24] MEDS: MORPHINE SULFATE 4 MG INJ IV PRN (17:04)
[2019-03-24] MEDS: Zestril 20 MG PO SCH (20:23)
[2019-03-25] MEDS: DUONEB 0.5-3 MG/3 ml Neb IH SCH ×4 (01:35→19:03)
--- NOTE | 2019-03-25 01:58 | PCM.NOTE ---
Date and Time: 03/24/19 1200 Subjective Assessment: Patient is still in pain mid spine and fearful of moving torso. She has had some improvement of upper abdominal distention and pain(gastritis and HH worse since just completing 2 weeks of Prednisone for COPD)She states she does not want to try to go home Objective Exam General Appearance: moderate distress (when moving torso -pain in mid thoracic spine) Neurologic Exam: alert, oriented x 3, cooperative Skin Exam: normal color, warm, dry Respiratory Exam: diminished breath sounds (no ronchi wneeze or rales.) Cardiovascular Exam: regular rate/rhythm Gastrointestinal/Abdomen Exam: tenderness (epigastric), distention OBJECTIVE DATA Vital Signs: Vital Signs - 24 hr Temp Pulse Resp BP Pulse Ox 03/25/19 01:42 100 H 20 94 L 03/25/19 00:00 99.4 F 102 H 20 130/77 94 L 03/24/19 19:54 102 H 20 95 03/24/19 19:36 99.4 F 108 H 22 131/72 93 L 03/24/19 16:00 100.0 F 107 H 18 139/78 94 L 03/24/19 13:38 105 H 24 95 03/24/19 12:00 98.9 F 102 H 22 143/74 95 03/24/19 08:00 98.4 F 100 H 22 140/72 95 03/24/19 06:44 98 H 16 94 L 03/24/19 04:00 99 F 99 H 22 160/74 95 Oxygen-Last 24 hours O2 Percentage 2 Liters = 28% O2 Percentage 2 Liters = 28% O2 Percentage 2 Liters = 28% O2 Percentage 2 Liters = 28% O2 Percentage 2 Liters = 28% O2 Percentage 2 Liters = 28% Pain Assessment - Last Documented Pain Intensity 6 Pain Scale Used 0-10 Pain Scale Intake and Output: Intake & Output 03/22/19 03/23/19 03/24/19 03/25/19 11:59 11:59 11:59 11:59 Intake Total 440 2806 1470 600 Output Total 400 1200 Balance 40 1606 1470 600 Weight 79.7 kg 82.4 kg 83.4 kg Assessment/Plan (1) Thoracic compression fracture Current Visit: Yes Status: Acute Qualifiers: Encounter type: initial encounter Thoracic vertebra fracture level: T8 Qualified Code(s): S22.060A - Wedge compression fracture of T7-T8 vertebra, initial encounter for closed fracture Assessment & Plan: pain control with IV morphin e and Percocet tabs Code(s): S22.000A - WEDGE COMPRESSION FRACTURE OF UNSP THORACIC VERTEBRA, INIT (2) Hiatal hernia with gastroesophageal reflux Current Visit: Yes Status: Acute Assessment & Plan: IV protonix Code(s): K21.9 - GASTRO-ESOPHAGEAL REFLUX DISEASE WITHOUT ESOPHAGITIS; K44.9 - DIAPHRAGMATIC HERNIA WITHOUT OBSTRUCTION OR GANGRENE (3) COPD (chronic obstructive pulmonary disease) Current Visit: Yes Status: Acute Qualifiers: Chronic bronchitis type: simple Assessment & Plan: continue home meds and Neb txs
[2019-03-25] MEDS: PERCOCET TABLET 5/325MG PO PRN ×3 (04:44→20:59)
[2019-03-25] MEDS: Advair Hfa 115/21 Common canister IH SCH ×2 (07:18→19:04)
[2019-03-25] MEDS: Reglan 10 MG PO SCH ×3 (07:54→16:28)
[2019-03-25] MEDS: Carafate 1 GM PO SCH ×3 (07:54→16:28)
[2019-03-25 09:03] LABS: Absolute Neutrophil Ct (ANC) 7.49 (1.4-6.9); BASOPHIL % 0.3 % (0.0-0.4); Basophil (Absolute #) 0.03 (0-0.4); Eosinophil % 2.1 % (0.00-5.0); Eosinophil (Absolute #) 0.23 (0-0.5); Hematocrit 41.1 % (35-47); Hemoglobin 13.1 gm/dl (12.0-16.0); Lymphocyte (Absolute #) 1.93 (1.0-4.6); Lymphocytes % 17.9 % (24.0-44.0); Mean Cell Volume 94.5 fl (78-100); Mean Corpuscular Hemoglobin 30.1 pg (26-32); Mean Corpuscular Hgb Concent. 31.9 g/dl (32-36); Monocyte (Absolute #) 1.09 (0.0-1.3); Monocytes % 10.1 % (0.0-12.0); Neutrophil % 69.6 % (36.0-66.0); Platelet Count 294 K/mm3 (150-450); Red Blood Count 4.35 M/mm3 (4.1-5.4); Red Cell Distribution Width 13.7 % (11.5-14.0); White Blood Count 10.8 K/mm3 (4.0-10.5)
[2019-03-25 09:08] LABS: ALBUMIN 3.7 g/dL (3.5-5.0); ALKALINE PHOSPHATASE 108 U/L (38-126); ANION GAP 8.1 MEQ/L (5-15); BLOOD UREA NITROGEN 12 mg/dL (7-17); CHLORIDE 104 mmol/L (98-107); Calcium 8.3 mg/dL (8.4-10.2); Carbon Dioxide 29 mmol/L (22-30); Creatinine 1 0.67 mg/dL (0.52-1.04); Glucose 159 mg/dL (74-106); Potassium 3.5 mmol/L (3.5-5.1); SGOT/AST 25 U/L (14-36); SGPT/ALT 23 U/L (0-35); SODIUM 138 mmol/L (137-145)
[2019-03-25] MEDS: Lidoderm Patch 5% TOP SCH (10:04)
[2019-03-25] MEDS: Pepcid 20 MG PO SCH ×2 (10:09→20:59)
[2019-03-25] MEDS: Miralax Powder 17GM PACKET PO SCH (10:09)
[2019-03-25] MEDS: Zocor 10MG PO SCH (10:10)
[2019-03-25] MEDS: Cyclobenzaprine 10 MG PO SCH ×2 (10:10→20:59)
[2019-03-25] MEDS: ENOXAPARIN SODIUM SQ SCH (10:10)
[2019-03-25] MEDS: Protonix 40MG Tablet PO SCH (10:10)
[2019-03-25] MEDS: Zestril 20 MG PO SCH (20:59)
[2019-03-26] MEDS: MORPHINE SULFATE 4 MG INJ IV PRN (00:47)
[2019-03-26] MEDS: DUONEB 0.5-3 MG/3 ml Neb IH SCH ×4 (01:12→19:05)
[2019-03-26] MEDS ORDERED: Sodium Chloride 0.9% 10 ML FLUSH Syringe IV PRN (01:27)
[2019-03-26] MEDS: PERCOCET TABLET 5/325MG PO PRN ×3 (03:35→20:15)
[2019-03-26] MEDS: Sodium Chloride 0.9% 10 ML FLUSH Syringe IV SCH ×3 (06:24→21:42)
[2019-03-26] MEDS: Advair Hfa 115/21 Common canister IH SCH ×2 (07:04→19:05)
--- NOTE | 2019-03-26 08:16 | PCM.NOTE ---
Date and Time: 03/26/19814 Subjective Assessment: doing ok - Review of Systems Constitutional: No Fever, No Chills Eyes: No Symptoms Ears, Nose, & Throat: No Symptoms Respiratory: No Cough, No Short Of Breath Cardiac: No Chest Pain, No Edema, No Syncope Abdominal/Gastrointestinal: No Abdominal Pain, No Nausea, No Vomiting, No Diarrhea Genitourinary Symptoms: No Dysuria Musculoskeletal: No Back Pain, No Neck Pain Skin: No Rash Neurological: No Dizziness, No Focal Weakness, No Sensory Changes Psychological: No Symptoms Endocrine: No Symptoms Hematologic/Lymphatic: No Symptoms Immunological/Allergic: No Symptoms Objective Exam General Appearance: no apparent distress, alert Neurologic Exam: alert, oriented x 3, cooperative, normal mood/affect, nml cerebellar function, sensation nml, No motor deficits Skin Exam: normal color, warm, dry Eye Exam: PERRL, EOMI, eyes nml inspection Ears, Nose, Throat Exam: normal ENT inspection, pharynx normal, moist mucous membranes Neck Exam: normal inspection, non-tender, supple, full range of motion Respiratory Exam: normal breath sounds, lungs clear, No respiratory distress Cardiovascular Exam: regular rate/rhythm, normal heart sounds Gastrointestinal/Abdomen Exam: soft, No tenderness, No mass Extremity Exam: normal inspection, normal range of motion Back Exam: normal inspection, normal range of motion, No CVA tenderness, No vertebral tenderness Pelvic Exam: deferred Rectal Exam: deferred OBJECTIVE DATA Vital Signs: Vital Signs - 24 hr Temp Pulse Resp BP Pulse Ox 03/26/19 07:06 89 18 93 L 03/26/19 04:29 98.2 F 103 H 20 122/58 96 03/26/19 01:14 78 18 95 03/26/19 00:08 98.9 F 99 H 16 103/56 94 L 03/25/19 20:15 99.1 F 99 H 20 135/60 95 03/25/19 19:07 104 H 18 95 03/25/19 16:00 98.0 F 72 18 119/67 96 03/25/19 14:06 110 H 24 94 L 03/25/19 12:00 98.2 F 112 H 18 191/87 94 L 03/25/19 09:36 87 18 95 Oxygen-Last 24 hours O2 Percentage 2 Liters = 28% O2 Percentage 2 Liters = 28% O2 Percentage 2 Liters = 28% O2 Percentage 2 Liters = 28% Pain Assessment - Last Documented Pain Intensity 3 Pain Scale Used 0-10 Pain Scale Intake and Output: Intake & Output 03/23/19 03/24/19 03/25/19 03/26/19 11:59 11:59 11:59 11:59 Intake Total 2806 1470 1660 3708 Output Total 1200 Balance 1606 1470 1660 3708 Weight 82.4 kg 83.4 kg 83.6 kg Lab Results: Lab Results-Last 24 Hours 03/25/19 03/25/19 Range/Units 08:53 08:53 WBC 10.8 H (4.0-10.5) K/mm3 RBC 4.35 (4.1-5.4) M/mm3 Hgb 13.1 (12.0-16.0) gm/dl Hct 41.1 (35-47) % MCV 94.5 (78-100) fl MCH 30.1 (26-32) pg MCHC 31.9 L (32-36) g/dl RDW 13.7 (11.5-14.0) % Plt Count 294 (150-450) K/mm3 MPV 9.0 (6-9.5) fl Gran % 69.6 H (36.0-66.0) % Eos # (Auto) 0.23 (0-0.5) Absolute Lymphs (auto) 1.93 (1.0-4.6) Absolute Monos (auto) 1.09 (0.0-1.3) Lymphocytes % 17.9 L (24.0-44.0) % Monocytes % 10.1 (0.0-12.0) % Eosinophils % 2.1 (0.00-5.0) % Basophils % 0.3 (0.0-0.4) % Absolute Granulocytes 7.49 H (1.4-6.9) Basophils # 0.03 (0-0.4) Sodium 138 (137-145) mmol/L Potassium 3.5 (3.5-5.1) mmol/L Chloride 104 (98-107) mmol/L Carbon Dioxide 29 (22-30) mmol/L Anion Gap 8.1 (5-15) MEQ/L BUN 12 (7-17) mg/dL Creatinine 0.67 (0.52-1.04) mg/dL Estimated GFR > 60.0 ML/MIN Glucose 159 H (74-106) mg/dL Calcium 8.3 L (8.4-10.2) mg/dL Total Bilirubin 0.80 (0.2-1.3) mg/dL AST 25 (14-36) U/L ALT 23 (0-35) U/L Alkaline Phosphatase 108 (38-126) U/L Serum Total Protein 7.0 (6.3-8.2) g/dL Albumin 3.7 (3.5-5.0) g/dL Multi-Disciplinary Progress Notes: Multi-Disciplinary Progress Notes 03/25/19 14:11 Physical Therapy Note by Nichelle Belcher PT. REPORTS T-SPINE PN AT ~ 5/10. HAD SOME DIFFICULTY W/ BM THIS AM MOST LIKELY D/T PN MEDS AND DECREASED MOBILITY. BED MOBILITY CGA/MIN ASSIST; SIT TO STAND CGA/SBA. PT. AMBULATED ~ 100' W/ ROLLER WALKER AND SBA ON 1 L O2. O2 SATS DEPLETED TO 87% AND INCREASED O2 TO 2L TO COMPLETE WALK. NSG TO AMBULATE OVER THE HOLIDAY. WILL CONT. P.T. DURING STAY. NICHELLE BELCHER PT Initialized on 03/25/19 14:11 - END OF NOTE Assessment/Plan (1) COPD (chronic obstructive pulmonary disease) Current Visit: Yes Status: Acute Qualifiers: Chronic bronchitis type: simple (2) Intractable back pain Current Visit: Yes Status: Acute Code(s): M54.9 - DORSALGIA, UNSPECIFIED (3) Thoracic compression fracture Current Visit: Yes Status: Acute Qualifiers: Encounter type: initial encounter Thoracic vertebra fracture level: T8 Qualified Code(s): S22.060A - Wedge compression fracture of T7-T8 vertebra, initial encounter for closed fracture Code(s): S22.000A - WEDGE COMPRESSION FRACTURE OF UNSP THORACIC VERTEBRA, INIT (4) Hypertension Current Visit: Yes Status: Chronic Qualifiers: Hypertension type: essential hypertension Qualified Code(s): I10 - Essential (primary) hypertension Code(s): I10 - ESSENTIAL (PRIMARY) HYPERTENSION (5) Osteoporosis, senile Current Visit: No Status: Acute Code(s): M81.0 - AGE-RELATED OSTEOPOROSIS W/ O CURRENT PATHOLOGICAL FRACTURE
[2019-03-26] MEDS: Reglan 10 MG PO SCH ×3 (08:31→16:34)
[2019-03-26] MEDS: Carafate 1 GM PO SCH ×3 (08:31→16:34)
[2019-03-26] MEDS: Zocor 10MG PO SCH (09:36)
[2019-03-26] MEDS: Cyclobenzaprine 10 MG PO SCH ×2 (09:36→21:42)
[2019-03-26] MEDS: Pepcid 20 MG PO SCH ×2 (09:36→21:42)
[2019-03-26] MEDS: Miralax Powder 17GM PACKET PO SCH (09:36)
[2019-03-26] MEDS: Protonix 40MG Tablet PO SCH (09:36)
[2019-03-26] MEDS: Lidoderm Patch 5% TOP SCH (09:37)
[2019-03-26] MEDS: ENOXAPARIN SODIUM SQ SCH (09:42)
[2019-03-26] MEDS: Zestril 20 MG PO SCH (21:42)
[2019-03-27] MEDS: PERCOCET TABLET 5/325MG PO PRN ×3 (03:03→23:16)
[2019-03-27] MEDS: DUONEB 0.5-3 MG/3 ml Neb IH SCH ×4 (03:08→19:20)
[2019-03-27] MEDS: Advair Hfa 115/21 Common canister IH SCH ×2 (05:26→19:23)
[2019-03-27] MEDS: Sodium Chloride 0.9% 10 ML FLUSH Syringe IV SCH ×3 (05:52→22:10)
[2019-03-27] MEDS: Reglan 10 MG PO SCH ×3 (07:43→16:11)
[2019-03-27] MEDS: Carafate 1 GM PO SCH ×3 (07:44→16:12)
[2019-03-27] MEDS: Lidoderm Patch 5% TOP SCH (09:17)
[2019-03-27] MEDS: Miralax Powder 17GM PACKET PO SCH (09:18)
[2019-03-27] MEDS: Protonix 40MG Tablet PO SCH (09:19)
[2019-03-27] MEDS: Cyclobenzaprine 10 MG PO SCH ×2 (09:19→22:10)
[2019-03-27] MEDS: Zocor 10MG PO SCH (09:19)
[2019-03-27] MEDS: ENOXAPARIN SODIUM SQ SCH (09:19)
[2019-03-27] MEDS: Pepcid 20 MG PO SCH ×2 (09:19→22:09)
--- NOTE | 2019-03-27 10:04 | PCM.NOTE ---
Date and Time: 03/27/19 1002 Subjective Assessment: Ambulating to bathroom, still pain, very infrequent bm/s - Review of Systems Constitutional: No Fever, No Chills Ears, Nose, & Throat: No Symptoms Respiratory: No Cough, No Short Of Breath Cardiac: No Chest Pain, No Edema, No Syncope Abdominal/Gastrointestinal: No Abdominal Pain, No Nausea, No Vomiting, No Diarrhea Genitourinary Symptoms: No Dysuria Objective Exam General Appearance: no apparent distress, alert Neurologic Exam: alert Skin Exam: normal color, warm, dry Respiratory Exam: normal breath sounds, lungs clear, No respiratory distress Cardiovascular Exam: regular rate/rhythm, normal heart sounds Back Exam: vertebral tenderness, decreased range of motion OBJECTIVE DATA Vital Signs: Vital Signs - 24 hr Temp Pulse Resp BP Pulse Ox 03/27/19 07:33 98.9 F 94 H 18 124/68 95 03/27/19 05:47 91 H 22 92 L 03/27/19 04:00 97.9 F 96 H 18 140/67 92 L 03/27/19 00:00 98.6 F 101 H 19 116/61 93 L 03/26/19 20:00 98.2 F 100 H 22 148/67 95 03/26/19 19:10 100 H 22 95 03/26/19 16:00 98.4 F 90 18 168/72 97 03/26/19 12:00 99.0 F 96 H 18 126/60 97 Oxygen-Last 24 hours O2 Percentage 2 Liters = 28% O2 Percentage 3 Liters = 32% O2 Percentage 3 Liters = 32% O2 Percentage 2 Liters = 28% O2 Percentage 2 Liters = 28% O2 Percentage 2 Liters = 28% Pain Assessment - Last Documented Pain Intensity 2 Pain Scale Used 0-10 Pain Scale Intake and Output: Intake & Output 03/24/19 03/25/19 03/26/19 03/27/19 11:59 11:59 11:59 11:59 Intake Total 1470 1660 9809 1979 Balance 1470 1660 3941 1979 Weight 83.4 kg 83.6 kg 86.4 kg 85.9 kg Multi-Disciplinary Progress Notes: Multi-Disciplinary Progress Notes 03/26/19 15:50 Respiratory Note by Philomena Gunter PT'S O2 SAT ON ROOM AIR WAS 93%. PT'S O2 SAT ON ROOM AIR WHILE WALKING WAS 87%. PT WAS THEN PLACED ON 2LPM WHILE WALKING. O2 SAT INCREASED TO 92%. NURSE AWARE. Initialized on 03/26/19 15:50 - END OF NOTE Assessment/Plan (1) Constipation Current Visit: Yes Status: Acute Assessment & Plan: routine remedies will add dulcolax Code(s): K59.00 - CONSTIPATION, UNSPECIFIED (2) Thoracic compression fracture Current Visit: Yes Status: Acute Qualifiers: Encounter type: initial encounter Thoracic vertebra fracture level: T8 Qualified Code(s): S22.060A - Wedge compression fracture of T7-T8 vertebra, initial encounter for closed fracture Assessment & Plan: no changes will attempt to swing Code(s): S22.000A - WEDGE COMPRESSION FRACTURE OF UNSP THORACIC VERTEBRA, INIT
[2019-03-27] MEDS ORDERED: DULCOLAX 5 MG PO PRN (10:05)
[2019-03-27] MEDS: Zestril 20 MG PO SCH (22:09)
[2019-03-28] MEDS: DUONEB 0.5-3 MG/3 ml Neb IH SCH ×4 (01:03→19:41)
[2019-03-28] MEDS: Sodium Chloride 0.9% 10 ML FLUSH Syringe IV SCH ×2 (06:08→14:36)
[2019-03-28] MEDS: Advair Hfa 115/21 Common canister IH SCH ×2 (07:04→19:41)
[2019-03-28] MEDS: Carafate 1 GM PO SCH ×3 (08:29→16:14)
[2019-03-28] MEDS: Reglan 10 MG PO SCH ×3 (08:29→16:14)
[2019-03-28] MEDS: Miralax Powder 17GM PACKET PO SCH (09:20)
[2019-03-28] MEDS: ENOXAPARIN SODIUM SQ SCH (09:20)
[2019-03-28] MEDS: Lidoderm Patch 5% TOP SCH (09:23)
[2019-03-28] MEDS: Protonix 40MG Tablet PO SCH (09:26)
[2019-03-28] MEDS: Cyclobenzaprine 10 MG PO SCH ×2 (09:26→22:18)
[2019-03-28] MEDS: Pepcid 20 MG PO SCH ×2 (09:26→22:18)
[2019-03-28] MEDS: Zocor 10MG PO SCH (09:27)
[2019-03-28] MEDS: PERCOCET TABLET 5/325MG PO PRN ×2 (16:25→20:58)
--- NOTE | 2019-03-28 18:25 | PCM.NOTE ---
Date and Time: 03/28/191811 Subjective Assessment: Patient states she tries not to take her pain meds ,waits until she "cannot stand it" ,8/10 but when on pain med relief is to a level 1/10 in thoracic spine. Is working hard pushing herself walking with PT as she will have to be home alone most of the time.C/O Constipation and had to have an enema to releive herself but it was painful moving the large BM "worse than having a baby ",now stools are a little loose .Denies chest pain or abdominal pain or cough . C/O cannot bend over witjhout loosing her breath and hurting in her back. OBJECTIVE DATA Vital Signs: Vital Signs - 24 hr Temp Pulse Resp BP Pulse Ox 03/28/19 16:00 98.5 F 93 H 22 137/65 97 03/28/19 13:14 108 H 22 91 L 03/28/19 12:00 98.4 F 95 H 20 149/82 96 03/28/19 07:07 98.2 F 89 25 H 158/78 95 03/28/19 06:57 76 18 93 L 03/28/19 04:10 98.4 F 92 H 20 149/83 94 L 03/28/19 01:03 17 03/28/19 00:00 98.9 F 92 H 22 137/71 97 03/27/19 20:00 99.1 F 104 H 22 146/71 95 03/27/19 19:20 99 H 14 95 Oxygen-Last 24 hours O2 Percentage 2 Liters = 28% O2 Percentage 2 Liters = 28% Pain Assessment - Last Documented Pain Intensity 3 Pain Scale Used 0-10 Pain Scale Intake and Output: Intake & Output 03/26/19 03/27/19 03/28/19 03/29/19 11:59 11:59 11:59 11:59 Intake Total 3948 1979 1780 840 Balance 3941979 1780 840 Weight 86.4 kg 85.9 kg 86.8 kg Multi-Disciplinary Progress Notes: Multi-Disciplinary Progress Notes 03/28/19 12:47 Nutrition Note by Carlene Chandler F/u note: Regular diet con't with 75-100% po intake. No sig. labs. Adm weight 82.4 kg; current weight 86.8 kg. +fluid balance 1680 mls. Goal of po intake >=75% met and ongoing. Con't to recommend cardiac diet. Will con't to monitor and f/u prn. Petros KOSURENDRA Initialized on 03/28/19 12:47 - END OF NOTE 03/28/19 11:40 Physical Therapy Note by Narcisa Watson UPON ARRIVAL IN PATIENT'S ROOM PATIENT SITTING IN CHAIR WITHOUT O2 AND STATES WAS TOLD TO USE ONLY IF SOB. DENIES ANY PAIN IN BACK AND HAS BEEN USING ICE ON BACK REGULARLY. STATES SHE DOES NOT THINK SHE IS GOING TO BE ABLE TO QUALIFY FOR SWING BED. MAY GO HOME WITH HOME HEALTH. DOES NOT HAVE WALKER OR CANE AT HOME. AMBULATED WITHOUT DEVICE WITH SBA. DID NOT HAVE O2 ON WITH AMBULATION ON THIS DATE. AMBULATED 120' THEN STOPPED TO TAKE PULSE OX. WAS 90%. INSTRUCTED TO TAKE TWO DEEP BREATHS (PURSED LIP) AND O2 SATS INCREASED TO 93%. AMBULATED 250' THEN REQUESTED TO STOP - DID NOT SIT BUT STOOD WITH SUPPORT ON COUNTER. 02 SATS AT 93 %. AMBULATED 150' BACK TO ROOM. 02 SATS AT 90% BUT INCREASED TO 94% WITH DEEP BREATHS WITHIN 15 SECONDS. NO LOSS OF BALANCE WITH AMBULATION. PATIENT INSTRUCTED TO PAUSE ACTIVITY AND USE RECOVERY BREATHING WHEN STARTING TO FEEL SOB. VERBALIZED UNDERSTANDING OF INSTRUCTIONS AND WAS MORE CONFIDENT WITH BEING ABLE TO GO HOME IF SHE HAS TO AFTER THERAPY ON THIS DATE. NARCISA WATSON, PT Addendum entered by Narcisa Watson 03/28/19 14:05: PATIENT SEEN IN THE AFTERNOON FOR FURTHER ADL ACTIVITIES INCLUDING GAIT AND THERAPEUTIC EXERCISES FOR SCAPULAR RETRACTION AND UPPER TRUNK EXTENSION. PATIENT AMBULATED 150' X 2 WITHOUT ASSISTIVE DEVICE AND WITHOUT O2. SATS AFTER AMBULATION 90% WITH RECOVERY TO 92-93% WITHIN ONE MINUTE WITH RECOVERY BREATHING. NARCISA WATSON PT Initialized on 03/28/19 11:40 - END OF NOTE 03/28/19 09:55 Case Management Note by Liza Martin DISCUSSION WITH PT THAT [facility] HAD BEEN INITIATED FOR SWING BED, ALSO, DISCUSSED REQUIREMENTS FOR SWING BED. PT IS HOPEFUL THAT INSURANCE WILL PAY FOR HER TO STAY HERE FOR SWING BED, BUT, IF NOT, SHE WOULD BE AGREEABLE TO GO HOME WITH [facility]. DISCUSSED THAT JESSY IS IN NETWORK WITH [facility], AND THAT TYPICALLY NO OTHER [facility] PROVIDER LOCALLY COULD ACCEPT PT'S WITH [facility]. PT REPORTS THAT SHE IS FINE TO GO WITH WHATEVER PROVIDER WAS IN NETWORK WITH HER INSURANCE. DENIES ADDNL NEEDS AT PRESENT. REPORTS THAT SHE IS FEELING BETTER TODAY. SITTING IN CHAIR PLAYING ON IPAD. CASE MANAGEMENT WILL CONTINUE TO FOLLOW FOR ALL DC NEEDS. Initialized on 03/28/19 09:55 - END OF NOTE Assessment/Plan (1) Thoracic compression fracture Current Visit: Yes Status: Acute Qualifiers: Encounter type: initial encounter Thoracic vertebra fracture level: T8 Qualified Code(s): S22.060A - Wedge compression fracture of T7-T8 vertebra, initial encounter for closed fracture Code(s): S22.000A - WEDGE COMPRESSION FRACTURE OF UNSP THORACIC VERTEBRA, INIT (2) Hiatal hernia with gastroesophageal reflux Current Visit: Yes Status: Acute Code(s): K21.9 - GASTRO-ESOPHAGEAL REFLUX DISEASE WITHOUT ESOPHAGITIS; K44.9 - DIAPHRAGMATIC HERNIA WITHOUT OBSTRUCTION OR GANGRENE (3) COPD (chronic obstructive pulmonary disease) Current Visit: Yes Status: Acute Qualifiers: Chronic bronchitis type: simple
[2019-03-28] MEDS: Zestril 20 MG PO SCH (22:18)
[2019-03-29] MEDS: DUONEB 0.5-3 MG/3 ml Neb IH SCH ×4 (01:06→18:56)
[2019-03-29] MEDS: PERCOCET TABLET 5/325MG PO PRN ×3 (05:45→21:16)
[2019-03-29] MEDS: Advair Hfa 115/21 Common canister IH SCH ×2 (07:47→18:57)
[2019-03-29] MEDS: Carafate 1 GM PO SCH ×3 (08:15→17:10)
[2019-03-29] MEDS: Reglan 10 MG PO SCH ×3 (08:15→17:09)
[2019-03-29] MEDS: Miralax Powder 17GM PACKET PO SCH (10:27)
[2019-03-29] MEDS: Zocor 10MG PO SCH (10:28)
[2019-03-29] MEDS: Protonix 40MG Tablet PO SCH (10:28)
[2019-03-29] MEDS: Pepcid 20 MG PO SCH ×2 (10:28→21:15)
[2019-03-29] MEDS: ENOXAPARIN SODIUM SQ SCH (10:28)
[2019-03-29] MEDS: Cyclobenzaprine 10 MG PO SCH ×2 (10:28→21:15)
[2019-03-29] MEDS: Lidoderm Patch 5% TOP SCH (10:28)
--- NOTE | 2019-03-29 10:32 | PCM.NOTE ---
Date and Time: 03/29/19 1030 Subjective Assessment: patient reports her pain is reasonably controlled at this time, her bowels are moving regularly and she is up out of the chair. she is concerned about returning to her home and being safe to care for herself, she does live with her son Objective Exam General Appearance: no apparent distress, obese Skin Exam: normal color, warm, dry Respiratory Exam: normal breath sounds, lungs clear, No respiratory distress Cardiovascular Exam: regular rate/rhythm, normal heart sounds Gastrointestinal/Abdomen Exam: soft, No tenderness, No mass OBJECTIVE DATA Vital Signs: Vital Signs - 24 hr Temp Pulse Resp BP Pulse Ox 03/29/19 07:38 88 18 91 L 03/29/19 07:06 97.7 F 85 20 133/59 96 03/29/19 04:00 97.8 F 90 18 136/74 92 L 03/29/19 01:09 94 H 18 91 L 03/29/19 00:00 91 H 18 03/28/19 20:00 98.1 F 93 H 18 142/70 92 L 03/28/19 19:44 95 H 20 93 L 03/28/19 16:00 98.5 F 93 H 22 137/65 97 03/28/19 13:14 108 H 22 91 L 03/28/19 12:00 98.4 F 95 H 20 149/82 96 Pain Assessment - Last Documented Pain Intensity 4 Pain Scale Used 0-10 Pain Scale Intake and Output: Intake & Output 03/26/19 03/27/19 03/28/19 03/29/19 11:59 11:59 11:59 11:59 Intake Total 3948 1979 1779 2179 Output Total 200 Balance 3941979 Weight 86.4 kg 85.9 kg 86.8 kg 86.1 kg Multi-Disciplinary Progress Notes: Multi-Disciplinary Progress Notes 03/28/19 12:47 Nutrition Note by Carlene Chandler F/u note: Regular diet con't with 75-100% po intake. No sig. labs. Adm weight 82.4 kg; current weight 86.8 kg. +fluid balance 1680 mls. Goal of po intake >=75% met and ongoing. Con't to recommend cardiac diet. Will con't to monitor and f/u prn. T.SUSHILA Chandler Initialized on 03/28/19 12:47 - END OF NOTE 12/27/19 11:40 Physical Therapy Note by Narcisa Watson UPON ARRIVAL IN PATIENT'S ROOM PATIENT SITTING IN CHAIR WITHOUT O2 AND STATES WAS TOLD TO USE ONLY IF SOB. DENIES ANY PAIN IN BACK AND HAS BEEN USING ICE ON BACK REGULARLY. STATES SHE DOES NOT THINK SHE IS GOING TO BE ABLE TO QUALIFY FOR SWING BED. MAY GO HOME WITH HOME HEALTH. DOES NOT HAVE WALKER OR CANE AT HOME. AMBULATED WITHOUT DEVICE WITH SBA. DID NOT HAVE O2 ON WITH AMBULATION ON THIS DATE. AMBULATED 120' THEN STOPPED TO TAKE PULSE OX. WAS 90%. INSTRUCTED TO TAKE TWO DEEP BREATHS (PURSED LIP) AND O2 SATS INCREASED TO 93%. AMBULATED 250' THEN REQUESTED TO STOP - DID NOT SIT BUT STOOD WITH SUPPORT ON COUNTER. 02 SATS AT 93 %. AMBULATED 150' BACK TO ROOM. 02 SATS AT 90% BUT INCREASED TO 94% WITH DEEP BREATHS WITHIN 15 SECONDS. NO LOSS OF BALANCE WITH AMBULATION. PATIENT INSTRUCTED TO PAUSE ACTIVITY AND USE RECOVERY BREATHING WHEN STARTING TO FEEL SOB. VERBALIZED UNDERSTANDING OF INSTRUCTIONS AND WAS MORE CONFIDENT WITH BEING ABLE TO GO HOME IF SHE HAS TO AFTER THERAPY ON THIS DATE. NARCISA WATSON, PT Addendum entered by Narcisa Watson 03/28/19 14:05: PATIENT SEEN IN THE AFTERNOON FOR FURTHER ADL ACTIVITIES INCLUDING GAIT AND THERAPEUTIC EXERCISES FOR SCAPULAR RETRACTION AND UPPER TRUNK EXTENSION. PATIENT AMBULATED 150' X 2 WITHOUT ASSISTIVE DEVICE AND WITHOUT O2. SATS AFTER AMBULATION 90% WITH RECOVERY TO 92-93% WITHIN ONE MINUTE WITH RECOVERY BREATHING. NARCISA WATSON, PT Initialized on 03/28/19 11:40 - END OF NOTE Assessment/Plan (1) Intractable back pain Current Visit: Yes Status: Acute Assessment & Plan: reasonably controlled at this time, advised we could consider home health referral on discharge and patient seems interested. Code(s): M54.9 - DORSALGIA, UNSPECIFIED (2) Thoracic compression fracture Current Visit: Yes Status: Acute Qualifiers: Encounter type: initial encounter Thoracic vertebra fracture level: T8 Qualified Code(s): S22.060A - Wedge compression fracture of T7-T8 vertebra, initial encounter for closed fracture Code(s): S22.000A - WEDGE COMPRESSION FRACTURE OF UNSP THORACIC VERTEBRA, INIT (3) Hypertension Current Visit: Yes Status: Chronic Qualifiers: Hypertension type: essential hypertension Qualified Code(s): I10 - Essential (primary) hypertension Assessment & Plan: stable at this time, no changes. Code(s): I10 - ESSENTIAL (PRIMARY) HYPERTENSION
[2019-03-29] MEDS: Zestril 20 MG PO SCH (21:15)
[2019-03-30] MEDS: PERCOCET TABLET 5/325MG PO PRN ×3 (00:55→14:22)
[2019-03-30] MEDS: DUONEB 0.5-3 MG/3 ml Neb IH SCH ×4 (02:02→19:27)
[2019-03-30] MEDS: Advair Hfa 115/21 Common canister IH SCH ×2 (07:25→19:37)
[2019-03-30] MEDS: Reglan 10 MG PO SCH ×3 (08:30→16:20)
[2019-03-30] MEDS: Carafate 1 GM PO SCH ×3 (08:30→16:19)
[2019-03-30] MEDS: TYLENOL 325 MG PO PRN ×2 (08:36→23:30)
--- NOTE | 2019-03-30 09:20 | PCM.NOTE ---
Date and Time: 03/30/19917 Subjective Assessment: patient reports her pain is still severe at times, she is able to ambulate to the restroom but again she is concerned to return to her home and care for herself, she lives with her son but he works and other family members work. Objective Exam General Appearance: no apparent distress, alert Neurologic Exam: alert, oriented x 3, cooperative Respiratory Exam: normal breath sounds, lungs clear, No respiratory distress Cardiovascular Exam: regular rate/rhythm, normal heart sounds Gastrointestinal/Abdomen Exam: soft, No tenderness, No mass Back Exam: decreased range of motion OBJECTIVE DATA Vital Signs: Vital Signs - 24 hr Temp Pulse Resp BP Pulse Ox 03/30/19 07:21 97.8 F 84 18 160/77 84 L 03/30/19 07:07 88 18 91 L 03/30/19 03:43 97.8 F 88 17 133/70 93 L 03/30/19 02:03 92 H 18 92 L 03/29/19 23:44 98.2 F 89 20 164/74 95 03/29/19 22:12 100 H 24 92 L 03/29/19 20:00 98.6 F 100 H 20 160/74 97 03/29/19 16:14 98.2 F 86 20 146/81 94 L 03/29/19 13:24 94 H 18 92 L 03/29/19 12:40 97.8 F 80 20 130/62 96 Pain Assessment - Last Documented Pain Intensity 6 Pain Scale Used 0-10 Pain Scale Intake and Output: Intake & Output 03/27/19 03/28/19 03/29/19 03/30/19 11:59 11:59 11:59 11:59 Intake Total 1979 1779 2180 1620 Output Total 200 1200 Balance 1979 1779 1979 420 Weight 85.9 kg 86.8 kg 86.1 kg 86.2 kg Assessment/Plan (1) Intractable back pain Current Visit: Yes Status: Acute Assessment & Plan: will discuss with her PCP Dr Jordan tomorrow plan for home with home health vs rehab stay etc. she is uncertain on what she feels comfortable with at this time. Code(s): M54.9 - DORSALGIA, UNSPECIFIED (2) Thoracic compression fracture Current Visit: Yes Status: Acute Qualifiers: Encounter type: initial encounter Thoracic vertebra fracture level: T8 Qualified Code(s): S22.060A - Wedge compression fracture of T7-T8 vertebra, initial encounter for closed fracture Code(s): S22.000A - WEDGE COMPRESSION FRACTURE OF UNSP THORACIC VERTEBRA, INIT (3) Hypertension Current Visit: Yes Status: Chronic Qualifiers: Hypertension type: essential hypertension Qualified Code(s): I10 - Essential (primary) hypertension Code(s): I10 - ESSENTIAL (PRIMARY) HYPERTENSION
[2019-03-30] MEDS: Protonix 40MG Tablet PO SCH (10:04)
[2019-03-30] MEDS: Pepcid 20 MG PO SCH ×2 (10:04→21:13)
[2019-03-30] MEDS: Miralax Powder 17GM PACKET PO SCH (10:04)
[2019-03-30] MEDS: Lidoderm Patch 5% TOP SCH (10:04)
[2019-03-30] MEDS: Cyclobenzaprine 10 MG PO SCH ×2 (10:04→21:13)
[2019-03-30] MEDS: Zocor 10MG PO SCH (10:05)
[2019-03-30] MEDS: VITAMIN D2 PO SCH (10:05)
[2019-03-30] MEDS: ENOXAPARIN SODIUM SQ SCH (10:05)
[2019-03-30 19:28] LABS: Hematocrit 34.4 % (35-47); Mean Cell Volume 95.3 fl (78-100); Mean Corpuscular Hemoglobin 30.5 pg (26-32); Mean Platelet Volume 9.1 fl (6-9.5); Platelet Count 315 K/mm3 (150-450); Red Blood Count 3.61 M/mm3 (4.1-5.4); Red Cell Distribution Width 13.8 % (11.5-14.0); White Blood Count 7.1 K/mm3 (4.0-10.5)
[2019-03-30 19:38] LABS: ALBUMIN 3.2 g/dL (3.5-5.0); ALKALINE PHOSPHATASE 119 U/L (38-126); ANION GAP 8.9 MEQ/L (5-15); BLOOD UREA NITROGEN 12 mg/dL (7-17); CHLORIDE 101 mmol/L (98-107); Calcium 9.3 mg/dL (8.4-10.2); Carbon Dioxide 30 mmol/L (22-30); Glucose 205 mg/dL (74-106); SGOT/AST 35 U/L (14-36); SGPT/ALT 41 U/L (0-35); SODIUM 136 mmol/L (137-145); Total Protein 6.2 g/dL (6.3-8.2)
[2019-03-30] MEDS: Zestril 20 MG PO SCH (21:13)
[2019-03-30 22:53] LABS: Eosinophil 5 % (0.00-3.0); Lymphocytes 19 % (24-44); Monocyte 9 % (0.0-12.0); Neutrophils 67 % (36.0-66.0); Platelet Estimate NORMAL (NORMAL); Total Cells Counted 100
[2019-03-31] MEDS: DUONEB 0.5-3 MG/3 ml Neb IH SCH ×3 (01:02→13:08)
[2019-03-31] MEDS: PERCOCET TABLET 5/325MG PO PRN ×2 (05:02→13:16)
[2019-03-31] MEDS: Advair Hfa 115/21 Common canister IH SCH (06:50)
[2019-03-31] MEDS: Reglan 10 MG PO SCH ×2 (08:06→11:49)
[2019-03-31] MEDS: Carafate 1 GM PO SCH ×2 (08:06→11:48)
[2019-03-31] MEDS: Miralax Powder 17GM PACKET PO SCH (09:00)
[2019-03-31] MEDS: Pepcid 20 MG PO SCH (09:01)
[2019-03-31] MEDS: Cyclobenzaprine 10 MG PO SCH (09:01)
[2019-03-31] MEDS: Zocor 10MG PO SCH (09:01)
[2019-03-31] MEDS: Protonix 40MG Tablet PO SCH (09:03)
[2019-03-31] MEDS: ENOXAPARIN SODIUM SQ SCH (09:03)
[2019-03-31] MEDS: Lidoderm Patch 5% TOP SCH (09:04)
--- NOTE | 2019-03-31 15:03 | PCM.DS ---
Discharge Summary Date of Admission: 03/22/19 17:30 Admitting Physician: KENNETH JOLLY DO Primary Care Provider: KENNETH JOLLY DO Allergies Allergies metformin Adverse Reaction (Verified 03/22/19 00:59) Sick to stomach, headache Hospital Summary - Hospital Course Hospital Course: Patient was admitted for pain control and support for acute spontaneous T-8 compression fracture.She has COPD and had been on 2 weeks of prednisone when pain started.During her stay she suffered from constipation required enema . HH and reflux symptoms on admission have resolved on Reglan and Protonix.Patient is deconditioned and PT has been helpful preparing her for home ADL. - Vitals & Intake/Output Vital Signs: Vital Signs Temperature 98 F 03/31/19 11:22 Pulse Rate 106 H 03/31/19 13:13 Respiratory Rate 18 03/31/19 13:13 Blood Pressure 142/78 03/31/19 11:22 O2 Sat by Pulse Oximetry 93 L 03/31/19 13:13 Oxygen-Last Documented O2 Percentage 2 Liters = 28% Intake & Output: Intake & Output 03/29/19 03/30/19 03/31/19 04/01/19 11:59 11:59 11:59 11:59 Intake Total 2180 1620 1680 240 Output Total 200 1200 1350 400 Balance 1980 420 330 -160 Weight 86.1 kg 86.2 kg 84.9 kg - Lab Result Diagrams: 03/30/19 19:16 03/30/19 19:16 Lab Results-Last 24 Hrs: Lab Results-Last 24 Hours 03/30/19 03/30/19 03/30/19 Range/Units 19:16 19:16 19:16 WBC 7.1 (4.0-10.5) K/mm3 RBC 3.61 L (4.1-5.4) M/mm3 Hgb 11.0 L (12.0-16.0) gm/dl Hct 34.4 L (35-47) % MCV 95.3 (78-100) fl MCH 30.5 (26-32) pg MCHC 32.0 (32-36) g/dl RDW 13.8 (11.5-14.0) % Plt Count 315 (150-450) K/mm3 MPV 9.1 (6-9.5) fl Segmented Neutrophils 67 H (36.0-66.0) % Lymphocytes (Manual) 19 L (24-44) % Monocytes (Manual) 9 (0.0-12.0) % Eosinophils (Manual) 5 H (0.00-3.0) % Platelet Estimate NORMAL (NORMAL) RBC Morphology NORMAL Sodium 136 L (137-145) mmol/L Potassium 4.0 (3.5-5.1) mmol/L Chloride 101 (98-107) mmol/L Carbon Dioxide 30 (22-30) mmol/L Anion Gap 8.9 (5-15) MEQ/L BUN 12 (7-17) mg/dL Creatinine 0.70 (0.52-1.04) mg/dL Estimated GFR > 60.0 ML/MIN Glucose 205 H (74-106) mg/dL Calcium 9.3 (8.4-10.2) mg/dL Total Bilirubin 0.30 (0.2-1.3) mg/dL AST 35 (14-36) U/L ALT 41 H (0-35) U/L Alkaline Phosphatase 119 (38-126) U/L Serum Total Protein 6.2 L (6.3-8.2) g/dL Albumin 3.2 L (3.5-5.0) g/dL 25-OH Vitamin D Total 19.3 L (30-100) ng/mL Micro Results-Entire Visit: Microbiology 03/25/19 10:31 Blood Culture Gram Stain - Final Blood Not Reportable Blood Culture - Final NO GROWTH 03/25/19 10:31 Blood Culture Gram Stain - Final Blood Not Reportable Blood Culture - Final NO GROWTH 03/21/19 20:09 Blood Culture Gram Stain - Final Blood Not Reportable Blood Culture - Final NO GROWTH 03/21/19 20:13 Blood Culture Gram Stain - Final Blood Not Reportable Blood Culture - Final NO GROWTH - Procedures and Test Procedures and Tests throughout Hospitalization: Therapy Orders & Screens 03/21/19 20:28 Respiratory Therapy Assessment DAILY Comment: 03/21/19 23:56 EKG PRN Comment: Oxygen Nasal Cannula 2 lpm Comment: 03/22/19 00:58 OT Screen per Nursing Assess Comment: Protocol Order Physician Instructions: Greater than 3 points order OT Admission Screening Reason For Exam: Triggered on Admission Diagnosis: Intractable pain, Thoracic Vertebral fractures, COPD Open Wound/Cellutlitis/Pressure Ulcers: No Acute Fx/ORIF/Change in wt bearing status: No Severe MUSCULOSKELETAL pain: Yes ADL Dysfunction: No Acute CVA w/Hemiparesis/Hemiplegia: No Decreased Functional Mobility/Strength: No Sprain/Strain: No Acute Post-op Mobility Dysfunction: No Total Points: 5 PT Screen per Nursing Assess Comment: Protocol Order Physician Instructions: Greater than 3 points order PT Admission Screenin Reason For Exam: Triggered on Admission Diagnosis: Intractable pain, Thoracic Vertebral fractures, COPD Open Wound/Cellutlitis/Pressure Ulcers: No Acute Fx/ORIF/Change in wt bearing status: No Severe MUSCULOSKELETAL pain: Yes ADL Dysfunction: No Acute CVA w/Hemiparesis/Hemiplegia: No Decreased Functional Mobility/Strength: No Sprain/Strain: No Acute Post-op Mobility Dysfunction: No Total Points: 5 Smoking Cessation Education ONCE Comment: Diagnosis: Intractable pain, Thoracic Vertebral fractures, COPD Smoking Status: Light tobacco smoker How long have you smoked: 60 Have you smoked in the past 12 months: Yes Approximately how many cigarettes per day: 1-2 per day Do you dip or chew tobacco: No If,Former Smoker,when did you quit: one month ago 03/22/19 02:47 Respiratory Therapy Assessment DAILY Comment: Diagnosis: Intractable pain, Thoracic Vertebral fractures, COPD 03/22/19 04:41 Peak Expiratory Flow Rate ONCE Comment: Reason For Exam: Diagnosis: Intractable pain, Thoracic Vertebral fractures, COPD 03/24/19 12:42 PT Eval & Treat (MD Order) ROUTINE Reason for Eval:: INTRACTABLE BACK PAIN Diagnosis: Intractable pain, Thoracic Vertebral fractures, COPD 03/31/19 11:56 RT Miscellaneous Order ROUTINE Comment: Physician Instructions: Reason For Exam: EVALUATE FOR HOME OXYGEN Diagnosis: Intractable pain, Thoracic Vertebral fractures, COPD Discharge Exam General Appearance: mild distress Neurologic Exam: alert, oriented x 3 (still discomfort mid back) Neck Exam: normal inspection Respiratory Exam: diminished breath sounds (no wheeze or ronch or rales) Cardiovascular Exam: regular rate/rhythm Gastrointestinal/Abdomen Exam: soft, normal bowel sounds Back Exam: other (tender mid low thoracic spine) Extremity Exam: other (no edema) Skin Exam: warm, dry Final Diagnosis/Problem List - Final Discharge Diagnosis/Problem (1) Thoracic compression fracture Current Visit: Yes Status: Acute Assessment & Plan: is on Prolia,D is low will consult with Endocrine outpatient Code(s): S22.000A - WEDGE COMPRESSION FRACTURE OF UNSP THORACIC VERTEBRA, INIT (2) Hiatal hernia with gastroesophageal reflux Current Visit: Yes Status: Acute Assessment & Plan: stop Reglan,continue Protonix Code(s): K21.9 - GASTRO-ESOPHAGEAL REFLUX DISEASE WITHOUT ESOPHAGITIS; K44.9 - DIAPHRAGMATIC HERNIA WITHOUT OBSTRUCTION OR GANGRENE (3) COPD (chronic obstructive pulmonary disease) Current Visit: Yes Status: Chronic Assessment & Plan: continue care with Dr Lance and current home meds (4) Vitamin D deficiency Current Visit: Yes Status: Acute Assessment & Plan: start RX D2 50,000 q week with calcium supp-will follow Code(s): E55.9 - VITAMIN D DEFICIENCY, UNSPECIFIED - Discharge Disposition: HOME HEALTH SERVICE Condition: Fair Prescriptions: New Cyclobenzaprine HCl 10 mg [Cyclobenzaprine 10 MG] 10 mg PO BID 20 Days #40 tablet Oxycodone/APAP 5 mg/325 mg [Percocet Tablet 5/325Mg] 1 tab PO Q4H PRN PRN 7 Days #28 tablet MDD 4 PRN Reason: Pain PANTOPRAZOLE 40 mg Tablet [Protonix 40MG Tablet] 40 mg PO DAILY #30 tab Ergocalciferol (Vitamin D2) [Vitamin D2] 50,000 unit PO Q7D #4 capsule Continue Budesonide/Formoterol Fumarate [Symbicort 80-4.5 Mcg Inhaler] 10.2 gm IH BID Lisinopril 20 mg PO HS Albuterol 8 gm Mdi Hfa [Ventolin Hfa MDI] 8 gm IH QIDPRN PRN PRN Reason: Severe Pain Albuterol 2.5 mg/3 ml Neb [Proventil 2.5 mg/3 ml Neb] 2.5 mg IH BID Lovastatin 20 mg PO DAILY Ergocalciferol (Vitamin D2) [Vitamin D] 50,000 unit PO UD Lidocaine HCl 5% Patch [Lidoderm Patch 5%] 1 patch TOP DAILY Aspirin EC 325 mg [Ecotrin 325 MG] 325 mg PO QID PRN PRN PRN Reason: Pain Discontinued Naproxen 375 mg [Naprosyn 375 mg] 375 mg PO Q8H #30 tablet Follow up with: KENNETH JOLLY DO [Primary Care Provider] - 1 Week (sunday evening )
[2019-03-31 16:28] VITALS: BP 148/78; PULSE 87; O2SAT 92
== END 2019-03-31 17:38 | disposition home health service (06) | DRG 544 ==
LOC: ED 19:47 → MED SURG 23:55 → OBSVTOIN 03-22 17:30
PROVIDERS: ADMIT Family Medicine; ATTEND Family Medicine
DX: M48.54XA Collapsed vertebra, not elsewhere classified, thoracic region, initial encounter for fracture (principal); I10 Essential (primary) hypertension; J44.9 Chronic obstructive pulmonary disease, unspecified; K21.9 Gastro-esophageal reflux disease without esophagitis; K44.9 Diaphragmatic hernia without obstruction or gangrene; E55.9 Vitamin D deficiency, unspecified; E78.00 Pure hypercholesterolemia, unspecified; M54.9 Dorsalgia, unspecified; M81.0 Age-related osteoporosis without current pathological fracture; K59.00 Constipation, unspecified; Z79.899 Other long term (current) drug therapy
CPT/HCPCS: 36000; 36415; 71260; 80053; 81001; 82150; 82306; 82805; 83605; 83690; 83735; 83880; 84484; 85025; 85610; 85730; 87040; 93005; 93041; 94150; 94640; 94760; 96374; 96375; 96376; 99285; J1650; J2270; J2405; 97110-GP; A9270-GY

== ENCOUNTER 2019-04-27 15:28 | Inpatient (IN) | payer MEDICARE ==
[2019-04-27] MEDS ORDERED: Sodium Chloride 0.9% 1000 ML 1,000 ML IV STA (15:58)
[2019-04-27] MEDS ORDERED: Sodium Chloride 0.9% 1000 ML 1,000 ML ONE (15:59)
[2019-04-27] MEDS ORDERED: Zofran 4 MG/2 ML VIAL ONE (15:59)
[2019-04-27] MEDS ORDERED: Zofran 4 MG/2 ML VIAL IV ONE (16:00)
[2019-04-27] MEDS ORDERED: SUBLIMAZE 100 MCG/2 ML IV ONE (16:03)
[2019-04-27] MEDS ORDERED: SUBLIMAZE 100 MCG/2 ML ONE (16:16)
--- NOTE | 2019-04-27 16:28 | ERPHSYRPT ---
- History of Present Illness Time Seen by Provider: 04/27/19 16:00 Historian: patient, family Exam Limitations: no limitations Patient Subjective Stated Complaint: Pt states "I ate an egg sandwhich this morning and all of a sudden my stomach hurt really bad, I felt like I needed to have a bowel movement and i have been in pain ever since." Triage Nursing Assessment: Pt presented alert and oriented X 3, skin pwd Pt ambulates with an uprigth steady gait,a ble to speak in clear full sentences pt moaning, unable to sit still. Physician History: 79 years old female with history ofhypertension, tobacco abuse presented in the ER with sudden onset of epigastric/upper abdominal pain around 11:30 AM on her eating the sandwich. Patient report this is a sharp stabbing pain border to severe in intensity, aggravated with movements and no significant relieving factors, associated with nausea and vomiting after presentation in the ER. Patient report initially she felt as if she was going to have bowel movements. She rated for a few hours but pain was not going away. Denies any history of AAA. Timing/Duration: today Activities at Onset: other (after eating) Quality: sharpness, stabbing Abdominal Pain Onset Location: LLQ, epigastric, periumbilical Pain Radiation: no radiation Severity of Pain-Max: severe Modifying Factors: Improves With: movement Associated Symptoms: back, heartburn, nausea, vomiting, No chest pain Allergies/Adverse Reactions: metformin Adverse Reaction (Verified 03/22/19 00:59) Sick to stomach, headache Home Medications: Budesonide/Formoterol Fumarate [Symbicort 80-4.5 Mcg Inhaler] 10.2 gm IH BID [History] Albuterol 2.5 mg/3 ml Neb [Proventil 2.5 mg/3 ml Neb] 2.5 mg IH BID [History] Albuterol 8 gm Mdi Hfa [Ventolin Hfa MDI] 8 gm IH QIDPRN PRN 03/08/19 [ History] lisinopriL [Lisinopril] 20 mg PO HS 03/08/19 [History] Ergocalciferol (Vitamin D2) [Vitamin D] 50,000 unit PO UD 03/21/19 [History] Lovastatin 20 mg PO DAILY 03/21/19 [History] Aspirin EC 325 mg [Ecotrin 325 MG] 325 mg PO QID PRN PRN 03/22/19 [History ] Lidocaine HCl 5% Patch [Lidoderm Patch 5%] 1 patch TOP DAILY 03/22/19 [ History] Hx Tetanus, Diphtheria Vaccination/Date Given: No Hx Influenza Vaccination/Date Given: Yes Hx Pneumococcal Vaccination/Date Given: Yes Immunizations Up to Date: Yes - Review of Systems Constitutional: No Symptoms Eyes: No Symptoms Ears, Nose, & Throat: No Symptoms Respiratory: No Symptoms Cardiac: No Symptoms Abdominal/Gastrointestinal: Abdominal Pain, Nausea, Vomiting Genitourinary Symptoms: No Symptoms Musculoskeletal: No Symptoms Skin: No Symptoms Neurological: No Symptoms Psychological: No Symptoms Endocrine: No Symptoms, Excessive Sweating Immunological/Allergic: No Symptoms - Past Medical History Pertinent Past Medical History: Yes Neurological History: No Pertinent History ENT History: No Pertinent History Cardiac History: High Cholesterol, Hypertension Respiratory History: COPD, Other Endocrine Medical History: No Pertinent History, Other Musculoskeletal History: Arthritis, Osteoporosis GI Medical History: No Pertinent History, Diverticulitis, GERD History: No Pertinent History Psycho-Social History: No Pertinent History Female Reproductive Disorders: No Pertinent History Other Medical History: seasonal allergies - Past Surgical History Past Surgical History: Yes Neuro Surgical History: No Pertinent History Cardiac: No Pertinent History Respiratory: No Pertinent History Gastrointestinal: Appendectomy, Other Genitourinary: No Pertinent History Musculoskeletal: No Pertinent History Female Surgical History: No Pertinent History Other Surgical History: diagnostic open abdominal, ankle fx and surgery - Social History Smoking Status: Current every day smoker How long have you smoked: years Exposure to second hand smoke: Yes Drug Use: none Patient Lives Alone: No - Nursing Vital Signs Nursing Vital Signs: Initial Vital Signs Temperature 98.1 F 04/27/19 15:41 Pulse Rate 68 04/27/19 15:41 Respiratory Rate 24 04/27/19 15:41 Blood Pressure 94/49 04/27/19 15:41 O2 Sat by Pulse Oximetry 98 04/27/19 15:41 Pain Scale Pain Intensity 4 - Physical Exam General Appearance: moderate distress Eye Exam: eyes nml inspection Ears, Nose, Throat Exam: normal ENT inspection, pharynx normal Neck Exam: normal inspection Respiratory Exam: normal breath sounds, lungs clear, respiratory distress Cardiovascular Exam: regular rate/rhythm, normal heart sounds, normal peripheral pulses Gastrointestinal/Abdomen Exam: soft, tenderness (upper abd/epigastric/RUQ , positive murpheys sign) Pelvic Exam: not done Back Exam: normal inspection, normal range of motion, No CVA tenderness Extremity Exam: normal inspection Neurologic Exam: alert, oriented x 3, cooperative Skin Exam: normal color SpO2 Interpretation: normal SpO2: 98 O2 Delivery: Room Air Ordered Tests: Active Orders 24 hr Category Date Time Status IV Insertion STAT Care 04/27/19 16:11 Active NPO (ED) STAT Care 04/27/19 16:11 Active ABDOMEN AND PELVIS W CONTRAST [CT] Stat Exams 04/27/19 16:12 Taken AMYLASE Stat Lab 04/27/19 16:05 Completed CBC W DIFF Stat Lab 04/27/19 16:05 Completed CMP Stat Lab 04/27/19 16:05 Completed LIPASE Stat Lab 04/27/19 16:05 Completed Lactic Acid Stat Lab 04/27/19 16:11 Completed TROPONIN Q3H Lab 04/27/19 16:05 Completed TROPONIN Q3H Lab 04/28/19 01:15 Ordered TROPONIN Q3H Lab 04/28/19 04:15 Ordered Peak Expiratory Flow Rate ONCE RT 04/27/19 18:03 Completed Respiratory Therapy Assessment DAILY RT 04/27/19 18:02 Completed Transfer Order Routine Transfer 04/27/19 Ordered Medication Summary Generic Name Dose Route Start Last Admin Trade Name Freq PRN Reason Stop Dose Admin Piperacillin Sod/Tazobactam Sod 3.375 gm in 100 mls @ 200 mls/hr 04/27/19 17: 52 Zosyn 3.375gm/100 Ml D5w IV 04/27/19 18:21 STAT STA Discontinued Medications Generic Name Dose Route Start Last Admin Trade Name Freq PRN Reason Stop Dose Admin Albuterol Sulfate 2.5 mg 04/27/19 17:55 04/27/19 18:03 Proventil 2.5 Mg/3 Ml Neb IH 04/27/19 17:56 2.5 mg STAT ONE Administration Albuterol Sulfate Confirm 04/27/19 17:57 Proventil 2.5 Mg/3 Ml Neb Administered 04/27/19 17:58 Dose 2.5 mg IH .STK-MED ONE Fentanyl Citrate 25 mcg 04/27/19 16:03 04/27/19 16:17 Sublimaze 100 Mcg/2 Ml IV 04/27/19 16:04 25 mcg STAT ONE Administration Fentanyl Citrate Confirm 04/27/19 16:16 Sublimaze 100 Mcg/2 Ml Administered 04/27/19 16:17 Dose 100 mcg .ROUTE .STK-MED ONE Sodium Chloride 1,000 mls @ 999 mls/hr 04/27/19 15:58 04/27/19 17:37 Sodium Chloride 0.9% 1000 Ml IV 04/27/19 16:58 Infused .Q1H1M STA Infusion Sodium Chloride Confirm 04/27/19 15:59 Sodium Chloride 0.9% 1000 Ml Administered 04/27/19 16:00 Dose 1,000 mls @ ud .ROUTE .STK-MED ONE Ondansetron HCl 4 mg 04/27/19 16:00 04/27/19 16:00 Zofran 4 Mg/2 Ml Vial IV 04/27/19 16:01 4 mg STAT ONE Administration Ondansetron HCl Confirm 04/27/19 15:59 Zofran 4 Mg/2 Ml Vial Administered 04/27/19 16:00 Dose 4 mg .ROUTE .STK-MED ONE Pantoprazole Sodium 40 mg 04/27/19 17:52 Protonix 40 Mg Iv IV 04/27/19 17:53 STAT ONE Lab/Rad Data: Laboratory Result Diagrams 04/27/19 16:05 04/27/19 16:05 Laboratory Results 04/27/19 04/27/19 04/27/19 Range/Units 16:11 16:05 16:05 WBC (4.0-10.5) K/mm3 RBC (4.1-5.4) M/mm3 Hgb (12.0-16.0) gm/dl Hct (35-47) % MCV (78-100) fl MCH (26-32) pg MCHC (32-36) g/dl RDW (11.5-14.0) % Plt Count (150-450) K/mm3 MPV (7.5-11.0) fl Gran % (36.0-66.0) % Eos # (Auto) (0-0.5) Absolute Lymphs (auto) (1.0-4.6) Absolute Monos (auto) (0.0-1.3) Lymphocytes % (24.0-44.0) % Monocytes % (0.0-12.0) % Eosinophils % (0.00-5.0) % Basophils % (0.0-0.4) % Absolute Granulocytes (1.4-6.9) Basophils # (0-0.4) Sodium 140 (137-145) mmol/L Potassium 4.0 (3.5-5.1) mmol/L Chloride 100 (98-107) mmol/L Carbon Dioxide 33 H (22-30) mmol/L Anion Gap 10.8 (5-15) MEQ/L BUN 24 H (7-17) mg/dL Creatinine 0.90 (0.52-1.04) mg/dL Estimated GFR > 60.0 ML/MIN Glucose 211 H (74-106) mg/dL Lactic Acid 1.9 (0.4-2.0) Calcium 9.0 (8.4-10.2) mg/dL Total Bilirubin 1.40 H (0.2-1.3) mg/dL AST 189 H (14-36) U/L ALT 72 H (0-35) U/L Alkaline Phosphatase 117 (38-126) U/L Troponin I < 0.012 (0.000-0.034) ng/mL Serum Total Protein 6.6 (6.3-8.2) g/dL Albumin 3.8 (3.5-5.0) g/dL Amylase 85 (30-110) U/L Lipase 353 H (23-300) U/L / Range/Units 16:05 WBC 10.2 (4.0-10.5) K/mm3 RBC 4.59 (4.1-5.4) M/mm3 Hgb 14.3 (12.0-16.0) gm/dl Hct 42.7 (35-47) % MCV 93.0 (78-100) fl MCH 31.2 (26-32) pg MCHC 33.5 (32-36) g/dl RDW 13.7 (11.5-14.0) % Plt Count 227 (150-450) K/mm3 MPV 10.6 (7.5-11.0) fl Gran % 78.1 H (36.0-66.0) % Eos # (Auto) 0.14 (0-0.5) Absolute Lymphs (auto) 1.24 (1.0-4.6) Absolute Monos (auto) 0.83 (0.0-1.3) Lymphocytes % 12.2 L (24.0-44.0) % Monocytes % 8.1 (0.0-12.0) % Eosinophils % 1.4 (0.00-5.0) % Basophils % 0.2 (0.0-0.4) % Absolute Granulocytes 7.96 H (1.4-6.9) Basophils # 0.02 (0-0.4) Sodium (137-145) mmol/L Potassium (3.5-5.1) mmol/L Chloride (98-107) mmol/L Carbon Dioxide (22-30) mmol/L Anion Gap (5-15) MEQ/L BUN (7-17) mg/dL Creatinine (0.52-1.04) mg/dL Estimated GFR ML/MIN Glucose (74-106) mg/dL Lactic Acid (0.4-2.0) Calcium (8.4-10.2) mg/dL Total Bilirubin (0.2-1.3) mg/dL AST (14-36) U/L ALT (0-35) U/L Alkaline Phosphatase (38-126) U/L Troponin I (0.000-0.034) ng/mL Serum Total Protein (6.3-8.2) g/dL Albumin (3.5-5.0) g/dL Amylase (30-110) U/L Lipase (23-300) U/L - Progress Progress: improved, re-examined Progress Note: 79 years old is evaluated for sudden onset upper abdominal pain. She is given IV fluid and pain medication.I have done bedside ultrasound which did not show any enlarged aorta/pulsating mass. She is feeling better on reevaluation. She vomited only once while in the ER. She has normal white count. She has some elevation in liver enzymes and bilirubin of 1.4 with a lipase of 353. I have obtained CT with contrast which showed multiple gallstones with dilated CBD 11 mm, probable choledocholithiasis. She has chronic colitis which seems resolving. She does not have any tenderness in the lower abdomen. I have reviewed the patient's findings and results with Dr. Leola Weber, recommended to n.p.o./IV fluids and admission to medical team. I have discussed with Dr. Toney and patient is being admitted. She is given a dose of Zosyn as well. Plan discussed with patient and family who understand and agree with it. Discussed with Dr.: Armando Wong Will see patient in: hospital (observation) Counseled pt/family regarding: lab results, diagnosis, rad results - Departure Departure Disposition: Observation Clinical Impression: Choledocholithiasis with acute cholecystitis, Pancreatitis due to common bile duct stone Condition: Stable Critical Care Time: Yes Critical Care Time(excluding separately billable procedures): Critical 30-74 mins (and) Referrals: KENNETH JOLLY DO [Primary Care Provider] -
[2019-04-27 16:34] LABS: Absolute Neutrophil Ct (ANC) 7.96 (1.4-6.9); BASOPHIL % 0.2 % (0.0-0.4); Basophil (Absolute #) 0.02 (0-0.4); Eosinophil % 1.4 % (0.00-5.0); Eosinophil (Absolute #) 0.14 (0-0.5); Hematocrit 42.7 % (35-47); Hemoglobin 14.3 gm/dl (12.0-16.0); Lymphocyte (Absolute #) 1.24 (1.0-4.6); Lymphocytes % 12.2 % (24.0-44.0); Mean Corpuscular Hemoglobin 31.2 pg (26-32); Mean Corpuscular Hgb Concent. 33.5 g/dl (32-36); Mean Platelet Volume 10.6 fl (7.5-11.0); Monocyte (Absolute #) 0.83 (0.0-1.3); Monocytes % 8.1 % (0.0-12.0); Neutrophil % 78.1 % (36.0-66.0); Platelet Count 227 K/mm3 (150-450); Red Blood Count 4.59 M/mm3 (4.1-5.4); Red Cell Distribution Width 13.7 % (11.5-14.0); White Blood Count 10.2 K/mm3 (4.0-10.5)
[2019-04-27 16:44] LABS: ALBUMIN 3.8 g/dL (3.5-5.0); ALKALINE PHOSPHATASE 117 U/L (38-126); AMYLASE 85 U/L (30-110); ANION GAP 10.8 MEQ/L (5-15); BLOOD UREA NITROGEN 24 mg/dL (7-17); CHLORIDE 100 mmol/L (98-107); Carbon Dioxide 33 mmol/L (22-30); Glucose 211 mg/dL (74-106); LIPASE 353 U/L (23-300); SGOT/AST 189 U/L (14-36); SGPT/ALT 72 U/L (0-35); SODIUM 140 mmol/L (137-145); Total Protein 6.6 g/dL (6.3-8.2)
[2019-04-27] MEDS ORDERED: Zosyn 3.375GM/100 Ml D5W 3.375 GM/100 ML IVPB IV STA (17:52)
[2019-04-27] MEDS ORDERED: PROTONIX 40 MG IV IV ONE (17:52)
[2019-04-27] MEDS ORDERED: PROVENTIL 2.5 MG/3 ML NEB IH ONE ×2 (17:55→17:57)
[2019-04-27] MEDS ORDERED: Sodium Chloride 0.9% 1000 ML 1,000 ML IV SCH (18:58)
[2019-04-27] MEDS ORDERED: NovoLOG Insulin SQ PRN (18:58)
[2019-04-27] MEDS: Phenergan 25 MG INJ IV PRN (19:07)
[2019-04-27] MEDS: SODIUM CHLORIDE 0.45% W/ 20 mEq KCL 1,000 ML IV SCH (19:10)
[2019-04-27] MEDS: Advair Hfa 230/21 Mcg COMMON CANISTER IH SCH (20:00)
--- NOTE | 2019-04-27 20:20 | XRAY ---
Indication: Upper abdomen/epigastric pain. Elevated bilirubin, lipase, AST, ALT. Multiple contiguous axial images obtained through the abdomen and pelvis using 80 cc Isovue-370 contrast only. Comparison: February 17, 2018. Lung bases again demonstrates scattered fibrosis/scarring and right lower lobe calcified granuloma. Heart is not enlarged. There is again moderate sized hiatal hernia now fluid distended presumed from gastroesophageal reflux. Stomach is now fluid distended. Noncontrasted bowel loops appear nonobstructed. Patient reports appendectomy. There is mild scattered colonic fecal debris greatest in the left hemicolon, sigmoid, and rectum. Mid sigmoid colon demonstrates mild circumferential wall thickening presumed resolving/residual colitis. Stable colonic diverticulosis. No free fluid/air. Stable numerous tiny gallstones/gravel without choledocho stone or abnormal biliary distention. Stable bilateral adrenal hypertrophy, pancreatic head punctate calcifications, and right upper renal cyst. Remaining liver, pancreas, spleen, adrenal glands, kidneys, ureters, bladder, and uterus appear unremarkable. Stable scattered aortoiliac calcifications. No AAA or pathologic retroperitoneal lymphadenopathy. Osseous structures again demonstrates mild degenerative changes throughout the thoracolumbar spine. Impression: 1. Mild fecal stasis without obstruction and stable scattered colonic diverticulosis. 2. Mild residual versus recurrent sigmoid colitis. No complications. 3. Again moderate sized hiatal hernia now fluid distended presumed from gastroesophageal reflux. 4. Stable gallstones/gravel, bilateral adrenal hypertrophy, and right renal cyst. Comment: Preliminary interpretation was made by C. No critical discrepancy.
[2019-04-27] MEDS: Zestril 20 MG PO SCH (21:37)
[2019-04-27] MEDS: DUONEB 0.5-3 MG/3 ml Neb IH SCH (21:38)
[2019-04-28] MEDS: DUONEB 0.5-3 MG/3 ml Neb IH SCH ×4 (00:43→18:52)
[2019-04-28] MEDS: DILAUDID 2 MG INJECTION IV PRN ×2 (03:25→14:46)
[2019-04-28] MEDS: SODIUM CHLORIDE 0.45% W/ 20 mEq KCL 1,000 ML IV SCH ×2 (05:17→14:53)
[2019-04-28 05:22] LABS: Absolute Neutrophil Ct (ANC) 5.04 (1.4-6.9); BASOPHIL % 0.3 % (0.0-0.4); Basophil (Absolute #) 0.02 (0-0.4); Eosinophil % 1.7 % (0.00-5.0); Eosinophil (Absolute #) 0.12 (0-0.5); Hematocrit 38.4 % (35-47); Hemoglobin 12.8 gm/dl (12.0-16.0); Lymphocyte (Absolute #) 1.23 (1.0-4.6); Lymphocytes % 17.1 % (24.0-44.0); Mean Cell Volume 93.2 fl (78-100); Mean Corpuscular Hemoglobin 31.1 pg (26-32); Mean Corpuscular Hgb Concent. 33.3 g/dl (32-36); Mean Platelet Volume 9.7 fl (7.5-11.0); Monocytes % 11.1 % (0.0-12.0); Neutrophil % 69.8 % (36.0-66.0); Platelet Count 213 K/mm3 (150-450); Red Blood Count 4.12 M/mm3 (4.1-5.4); Red Cell Distribution Width 13.5 % (11.5-14.0); White Blood Count 7.2 K/mm3 (4.0-10.5)
[2019-04-28 05:45] LABS: ALBUMIN 3.5 g/dL (3.5-5.0); ALKALINE PHOSPHATASE 140 U/L (38-126); ANION GAP 9.4 MEQ/L (5-15); BLOOD UREA NITROGEN 17 mg/dL (7-17); CHLORIDE 107 mmol/L (98-107); Calcium 8.8 mg/dL (8.4-10.2); Carbon Dioxide 26 mmol/L (22-30); Creatinine 1 0.65 mg/dL (0.52-1.04); Glucose 132 mg/dL (74-106); Potassium 4.3 mmol/L (3.5-5.1); SGOT/AST 603 U/L (14-36); SGPT/ALT 395 U/L (0-35); SODIUM 138 mmol/L (137-145); Total Protein 6.3 g/dL (6.3-8.2)
[2019-04-28] MEDS: Advair Hfa 230/21 Mcg COMMON CANISTER IH SCH ×2 (06:55→18:53)
[2019-04-28] MEDS: Phenergan 25 MG INJ IV PRN ×3 (08:29→21:10)
--- NOTE | 2019-04-28 14:31 | CONS ---
CONSULT DATE: 04/28/2019 This patient was seen for Dr. Marco A Weber who was consulted over the weekend apparently. HISTORY: The patient is a 79 year-old female. She ate an egg sandwich yesterday and had significant epigastric right upper quadrant pain radiating to her back. She had CT scan showing dilated bile duct and gallstones. She had resolution of past history of severe colitis in the past. She is still having persistent pain today. She is afebrile. White count 7.2, hemoglobin 12.8, PLT 113,000. Her liver function tests were actually going up. She has persistent pain. Bilirubin was 1.4 yesterday and 1.9 today. Her AST went up to 603. ALT up 395 from 72 yesterday. Alkaline phosphatase was normal yesterday and up to 140 today. She had elevated lipase yesterday at 353. There was not one ordered today. PAST MEDICAL HISTORY: Hypercholesterolemia. Hypertension. Chronic obstructive pulmonary disease. Arthritis. Osteoporosis. Diverticulitis in the past. Reflux. PAST SURGICAL HISTORY: She had prior laparotomy in [place]. She said they are worried about her colon but they did not have to take it out at that time, according to the patient. Ankle fracture surgery. Appendectomy in the past. MEDICATIONS: Symbicort, Proventil, Ventolin HFA, vitamin D, lisinopril, Ecotrin, lovastatin, Levemir in the past. ALLERGIES: METFORMIN. FAMILY HISTORY: SOCIAL HISTORY: Smoking. REVIEW OF SYSTEMS: Fourteen systems reviewed. She denies chest pain or palpitations currently. Pertinent for abdominal pain, nausea and vomiting. Other systems negative or noncontributory as above and per preadmission questionnaire. PHYSICAL EXAMINATION: HEENT: Sclera slight icterus. NECK: No JVD. CHEST: Equal excursion, nonlabored breathing. CVS: Regular rate and rhythm. ABDOMEN: Soft. Tender in the epigastrium. No rebound. EXTREMITIES: No edema. NEURO: Alert, moving extremities grossly symmetrically. IMPRESSION: History of cholelithiasis. She has got dilated common bile duct. Whether she has got stone or sludge in the common duct is unclear. She additionally had elevated pancreatic enzymes and need to repeat the pancreatic enzymes today. She needs MRCP and consideration for transfer for GI opinion on possible ERCP. Eventually she will benefit from cholecystectomy but given her dramatically elevated liver enzymes today compared to today, I feel this needs to be sorted out first. When it comes to eventual laparoscopic cholecystectomy possible open risk of bleeding or infection, risk of trocar injury or hernia, risk of bowel, bladder or blood vessel injury, risk of bile leak, bile duct injury, retained stone or sludge possibly requiring further procedure either open or ERCP. General risk of anesthesia, deep venous thrombosis, pulmonary embolism, pneumonia, perioperative risk of aches, pains, bloating, constipation and/or loose stools possibly even chronic in nature. I am seeing this patient for Dr. Weber. Again, given her dramatically elevated liver function tests will try to get MRCP while she is here otherwise need to consider transfer evaluation for possible ERCP. If GI is not available in [place] to consider doing it then may need IU. While she here pending all of that discussion with GI will check into MRCP to evaluate for very small stones.
--- NOTE | 2019-04-28 16:35 | XRAY ---
Indication: Epigastric pain. Gallstones. Conventional MRCP was performed. Comparison: None Gallbladder normally distended with numerous tiny gallstones without significant wall thickening or pericholecystic fluid. Common bile duct is normal in course and caliber up to 6-7 mm in diameter emptying into the second portion of the duodenum. No choledochal stone or abnormal intrahepatic biliary distention. Pancreatic duct appears unremarkable. Visualized stomach and bowel loops appear nonobstructed. Incompletely visualized hiatal hernia. Incidental 2.2 cm right upper renal cortical cyst and bilateral adrenal hypertrophy. Remaining visualized liver, pancreas, spleen, adrenal glands, kidneys, proximal ureters, and aorta appear unremarkable. No abnormal bone marrow signal. Tiny right lung base pleural effusion. Impression: 1. Negative MRCP. 2. Incidental tiny gallstones, right renal cyst, bilateral adrenal hypertrophy, hiatal hernia, and tiny right lung effusion.
[2019-04-28] MEDS: Zestril 20 MG PO SCH (21:10)
[2019-04-29] MEDS: DUONEB 0.5-3 MG/3 ml Neb IH SCH ×4 (01:17→18:46)
[2019-04-29] MEDS: SODIUM CHLORIDE 0.45% W/ 20 mEq KCL 1,000 ML IV SCH (01:44)
[2019-04-29 04:54] LABS: Absolute Neutrophil Ct (ANC) 5.92 (1.4-6.9); BASOPHIL % 0.4 % (0.0-0.4); Basophil (Absolute #) 0.03 (0-0.4); Eosinophil % 3.5 % (0.00-5.0); Eosinophil (Absolute #) 0.28 (0-0.5); Hematocrit 38.9 % (35-47); Hemoglobin 12.5 gm/dl (12.0-16.0); Lymphocyte (Absolute #) 1.18 (1.0-4.6); Lymphocytes % 14.8 % (24.0-44.0); Mean Corpuscular Hemoglobin 30.2 pg (26-32); Mean Corpuscular Hgb Concent. 32.1 g/dl (32-36); Mean Platelet Volume 9.2 fl (7.5-11.0); Monocyte (Absolute #) 0.54 (0.0-1.3); Monocytes % 6.8 % (0.0-12.0); Neutrophil % 74.5 % (36.0-66.0); Platelet Count 205 K/mm3 (150-450); Red Blood Count 4.14 M/mm3 (4.1-5.4); Red Cell Distribution Width 13.7 % (11.5-14.0)
[2019-04-29 05:14] LABS: ALBUMIN 3.5 g/dL (3.5-5.0); ALKALINE PHOSPHATASE 180 U/L (38-126); AMYLASE 64 U/L (30-110); ANION GAP 11.3 MEQ/L (5-15); BLOOD UREA NITROGEN 12 mg/dL (7-17); CHLORIDE 106 mmol/L (98-107); Calcium 8.4 mg/dL (8.4-10.2); Carbon Dioxide 22 mmol/L (22-30); Creatinine 1 0.65 mg/dL (0.52-1.04); Direct Bilirubin 0.5 mg/dL (0.0-0.4); Glucose 108 mg/dL (74-106); LIPASE 26 U/L (23-300); Potassium 4.2 mmol/L (3.5-5.1); SGOT/AST 233 U/L (14-36); SGPT/ALT 315 U/L (0-35); SODIUM 135 mmol/L (137-145); Total Protein 6.3 g/dL (6.3-8.2)
--- NOTE | 2019-04-29 06:57 | PCM.HP ---
History of Present Illness - Chief Complaint Chief Complaint: Cholelithiasis; Pancreatitis; Acute cholecystitis History of Present Illness: is a 79 year old female with Hx COPD and HTN who presented to ER with severe epigastric and upper/periumbilical abdominal pain with sudden onset of nausea and vomiting .States she woke up and did not have any appetite but around 11 am she forced herself to eat an egg sandwich and shortly after the pain and nausea/vomiting started . Patient was recently admited for atraumatic rib and thoracic compression fracture due to osteoporosis. She had recovered and completed home PT.She is a current smoker on home nebulizer treatments. She has diverticulosis and HH and reflux symptoms treated with Protonix. - Review of Systems Constitutional: No Symptoms Eyes: No Symptoms Ears, Nose, & Throat: No Symptoms Respiratory: Other (no acute cough or dyspnea ,is on home neb treatments and is a daily smoker.) Cardiac: Other (severe onset epigastric pain with negative troponin series in ER ) Abdominal/Gastrointestinal: Abdominal Pain, Nausea, Vomiting, Appetite Changes Genitourinary Symptoms: No Symptoms Musculoskeletal: Back Pain (chronic ,has kyphotic curve and has recovered from recent rib and compression fracture T7 or 8 ) Skin: No Symptoms Neurological: No Symptoms Psychological: No Symptoms Endocrine: No Symptoms Hematologic/Lymphatic: No Symptoms Immunological/Allergic: No Symptoms Medications & Allergies Home Medications: Home Medication List Albuterol 2.5 mg/3 ml Neb [Proventil 2.5 mg/3 ml Neb] 2.5 mg IH BID [History Confirmed 04/27/19] Albuterol 8 gm Mdi Hfa [Ventolin Hfa MDI] 8 gm IH QIDPRN PRN 03/08/19 [ History Confirmed 04/27/19] lisinopriL [Lisinopril] 20 mg PO HS 03/08/19 [History Confirmed 04/27/19] Lovastatin 20 mg PO HS 03/21/19 [History Confirmed 04/27/19] Aspirin EC 325 mg [Ecotrin 325 MG] 325 mg PO DAILY 03/22/19 [History Confirmed 04/27/19] Ergocalciferol (Vitamin D2) [Vitamin D2] 50,000 unit PO Q7D #4 capsule 03/31/19 [Rx Confirmed 04/27/19] PANTOPRAZOLE 40 mg Tablet [Protonix 40MG Tablet] 40 mg PO DAILY #30 tab [Rx Confirmed 04/27/19] Budesonide/Formoterol Fumarate [Symbicort 160-4.5 Mcg Inhaler] 10.2 gm IH BID [History Confirmed 04/27/19] Cyclobenzaprine HCl 10 mg [Cyclobenzaprine 10 MG] 10 mg PO DAILY 04/27/19 [History Confirmed 04/27/19] Gabapentin 100 mg PO BID 04/27/19 [History Confirmed 04/27/19] Oxycodone/APAP 5 mg/325 mg [Percocet Tablet 5/325Mg] 1 tab PO Q6H PRN PRN 04/27/19 [History Confirmed 04/27/19] Allergies/Adverse Reactions: Allergies Allergy/AdvReac Type Severity Reaction Status Date / Time metformin AdvReac Verified 03/22/19 00:59 - Past Medical History Past Medical History: Yes Neurological History: No Pertinent History ENT History: No Pertinent History Cardiac History: High Cholesterol, Hypertension CARDIAC HISTORY: Hypertension Respiratory History: COPD, Other Endocrine Medical History: Other Musculoskelatal History: Arthritis, Osteoporosis GI Medical History: Diverticulitis, GERD, Gallbladder Disease History: No Pertinent History Pyscho-Social History: No Pertinent History Reproductive Disorders: No Pertinent History Comment: seasonal allergies;borderline diabetic - Female History Are you now?: No - Past Surgical History Past Surgical History: Yes Neuro Surgical History: No Pertinent History Cardiac History: No Pertinent History Respiratory Surgery: No Pertinent History GI Surgical History: Appendectomy, Other Genitourinary Surgical Hx: No Pertinent History Musculskeletal Surgical Hx: No Pertinent History Female Surgical History: No Pertinent History Other Surgical History: diagnostic open abdominal, ankle fx and surgery - Social History Smoking Status: Light tobacco smoker How long have you smoked: years Exposure to second hand smoke: Yes Alcohol: None Drug Use: none - Physical Exam Vital Signs: Vital Signs - 24 hr Temp Pulse Resp BP Pulse Ox 04/29/19 04:00 98.8 F 101 H 20 146/81 90 L 04/29/19 01:25 102 H 20 90 L 04/29/19 00:00 99 F 94 H 20 158/74 90 L 04/28/19 20:03 88 20 92 L 04/28/19 20:00 98.9 F 92 H 18 134/86 90 L 04/28/19 16:00 98.0 F 93 H 20 129/75 98 04/28/19 13:29 90 18 92 L 04/28/19 12:00 98.1 F 101 H 18 130/75 98 04/28/19 08:00 98.1 F 95 H 20 140/81 98 04/28/19 06:58 95 H 20 98 General Appearance: no apparent distress (has had releif of abdominal pain and N /V from IV meds-Dilaudid and promethazine.) Neurologic Exam: alert, oriented x 3, cooperative, normal mood/affect Eye Exam: PERRL/EOMI, eyes nml inspection (no scleral icterus) Ears, Nose, Throat Exam: normal ENT inspection Neck Exam: normal inspection Respiratory Exam: diminished breath sounds (just completed respiratory neb tx - no wheeze no ronchi no rales no dyspnea) Cardiovascular Exam: regular rate/rhythm (no peripheral edema no cyanosis) Gastrointestinal/Abdomen Exam: soft, tenderness (across upper and mid abdomen with distention and guarding) Pelvic Exam: not done Rectal Exam: not done Back Exam: other (thoracic kyphosis without point tenderness ,no CVA tenderness) Extremity Exam: normal inspection Skin Exam: normal color, warm, dry Results - Labs Lab/Micro Results: Lab Results-Last 24 Hours 04/28/19 04/29/19 04/29/19 Range/Units 05:30 04:35 04:35 WBC 8.0 (4.0-10.5) K/mm3 RBC 4.14 (4.1-5.4) M/mm3 Hgb 12.5 (12.0-16.0) gm/dl Hct 38.9 (35-47) % MCV 94.0 (78-100) fl MCH 30.2 (26-32) pg MCHC 32.1 (32-36) g/dl RDW 13.7 (11.5-14.0) % Plt Count 205 (150-450) K/mm3 MPV 9.2 (7.5-11.0) fl Gran % 74.5 H (36.0-66.0) % Eos # (Auto) 0.28 (0-0.5) Absolute Lymphs (auto) 1.18 (1.0-4.6) Absolute Monos (auto) 0.54 (0.0-1.3) Lymphocytes % 14.8 L (24.0-44.0) % Monocytes % 6.8 (0.0-12.0) % Eosinophils % 3.5 (0.00-5.0) % Basophils % 0.4 (0.0-0.4) % Absolute Granulocytes 5.92 (1.4-6.9) Basophils # 0.03 (0-0.4) Sodium 135 L (137-145) mmol/L Potassium 4.2 (3.5-5.1) mmol/L Chloride 106 (98-107) mmol/L Carbon Dioxide 22 (22-30) mmol/L Anion Gap 11.3 (5-15) MEQ/L BUN 12 (7-17) mg/dL Creatinine 0.65 (0.52-1.04) mg/dL Estimated GFR > 60.0 ML/MIN Glucose 108 H (74-106) mg/dL Calcium 8.4 (8.4-10.2) mg/dL Total Bilirubin 1.40 H (0.2-1.3) mg/dL Direct Bilirubin 0.5 H (0.0-0.4) mg/dL AST 233 H (14-36) U/L ALT 315 H (0-35) U/L Alkaline Phosphatase 180 H (38-126) U/L Serum Total Protein 6.3 (6.3-8.2) g/dL Albumin 3.5 (3.5-5.0) g/dL Amylase 64 (30-110) U/L Lipase 119 26 (23-300) U/L - Radiology Impressions Radiology Exams & Impressions: Radiology Procedures Category Date Time Status ABDOMEN AND PELVIS W CONTRAST [CT] Stat Exams 04/27/19 16:12 Completed MRI ABD W/O CONTRAST [MRI] Routine Exams 04/28/19 12:40 Completed Assessment/Plan (1) Choledocholithiasis with acute cholecystitis Current Visit: Yes Status: Acute Assessment & Plan: general surgery consulting Code(s): K80.42 - CALCULUS OF BILE DUCT W ACUTE CHOLECYSTITIS W/O OBSTRUCTION (2) Pancreatitis due to common bile duct stone Current Visit: Yes Status: Resolved Assessment & Plan: repeat lipase is not elevated Code(s): K85.90 - ACUTE PANCREATITIS WITHOUT NECROSIS OR INFECTION, UNSP; K80.50 - CALCULUS OF BILE DUCT W/O CHOLANGITIS OR CHOLECYST W/O OBST (3) Hiatal hernia with gastroesophageal reflux Current Visit: No Status: Chronic Assessment & Plan: continue PPI Code(s): K21.9 - GASTRO-ESOPHAGEAL REFLUX DISEASE WITHOUT ESOPHAGITIS; K44.9 - DIAPHRAGMATIC HERNIA WITHOUT OBSTRUCTION OR GANGRENE (4) COPD (chronic obstructive pulmonary disease) Current Visit: No Status: Chronic Qualifiers: Chronic bronchitis type: simple Assessment & Plan: continue nebulizer treatments (5) Hypertension Current Visit: No Status: Chronic Qualifiers: Hypertension type: essential hypertension Qualified Code(s): I10 - Essential (primary) hypertension Assessment & Plan: controlled,moniter Code(s): I10 - ESSENTIAL (PRIMARY) HYPERTENSION (6) Osteoporosis, senile Current Visit: No Status: Chronic Assessment & Plan: is on Prolia and vitamin D Code(s): M81.0 - AGE-RELATED OSTEOPOROSIS W/O CURRENT PATHOLOGICAL FRACTURE
[2019-04-29] MEDS: Advair Hfa 230/21 Mcg COMMON CANISTER IH SCH ×2 (07:16→18:45)
[2019-04-29] MEDS ORDERED: Lactated Ringers 1,000 ML IV SCH ×2 (12:30→15:00)
[2019-04-29] MEDS ORDERED: MEFOXIN 2 GM PREMIX** 2 GM/50 ML ML IV SCH (13:00)
--- NOTE | 2019-04-29 14:36 | PCM.NOTE ---
Date and Time: 04/29/19 9486 Subjective Assessment: Patient was evaluated by General Surgery and with improvement of liver enzymes is scheduled for cholecystectomy for this evening. Objective Exam General Appearance: moderate distress (abdominal discomfort and indigsetion) Neurologic Exam: alert, oriented x 3, cooperative Skin Exam: warm (flushed) Respiratory Exam: diminished breath sounds (bases) Cardiovascular Exam: regular rate/rhythm Gastrointestinal/Abdomen Exam: tenderness, distention Extremity Exam: normal inspection OBJECTIVE DATA Vital Signs: Vital Signs - 24 hr Temp Pulse Resp BP Pulse Ox 04/29/19 13:12 92 H 20 04/29/19 11:05 98 F 80 20 144/74 95 04/29/19 07:20 97.8 F 99 H 20 148/78 96 04/29/19 06:00 96 H 18 89 L 04/29/19 04:00 98.8 F 101 H 20 146/81 90 L 04/29/19 01:25 102 H 20 90 L 04/29/19 00:00 99 F 94 H 20 158/74 90 L 04/28/19 20:03 88 20 92 L 04/28/19 20:00 98.9 F 92 H 18 134/86 90 L 04/28/19 16:00 98.0 F 93 H 20 129/75 98 Pain Assessment - Last Documented Pain Intensity 8 Pain Scale Used 0-10 Pain Scale Intake and Output: Intake & Output 04/27/19 04/28/19 04/29/19 04/30/19 11:59 11:59 11:59 11:59 Intake Total 738 1366 Balance 738 1366 Weight 77.5 kg Lab Results: Lab Results-Last 24 Hours 04/29/19 04/29/19 Range/Units 04:35 04:35 WBC 8.0 (4.0-10.5) K/mm3 RBC 4.14 (4.1-5.4) M/mm3 Hgb 12.5 (12.0-16.0) gm/dl Hct 38.9 (35-47) % MCV 94.0 (78-100) fl MCH 30.2 (26-32) pg MCHC 32.1 (32-36) g/dl RDW 13.7 (11.5-14.0) % Plt Count 205 (150-450) K/mm3 MPV 9.2 (7.5-11.0) fl Gran % 74.5 H (36.0-66.0) % Eos # (Auto) 0.28 (0-0.5) Absolute Lymphs (auto) 1.18 (1.0-4.6) Absolute Monos (auto) 0.54 (0.0-1.3) Lymphocytes % 14.8 L (24.0-44.0) % Monocytes % 6.8 (0.0-12.0) % Eosinophils % 3.5 (0.00-5.0) % Basophils % 0.4 (0.0-0.4) % Absolute Granulocytes 5.92 (1.4-6.9) Basophils # 0.03 (0-0.4) Sodium 135 L (137-145) mmol/L Potassium 4.2 (3.5-5.1) mmol/L Chloride 106 (98-107) mmol/L Carbon Dioxide 22 (22-30) mmol/L Anion Gap 11.3 (5-15) MEQ/L BUN 12 (7-17) mg/dL Creatinine 0.65 (0.52-1.04) mg/dL Estimated GFR > 60.0 ML/MIN Glucose 108 H (74-106) mg/dL Calcium 8.4 (8.4-10.2) mg/dL Total Bilirubin 1.40 H (0.2-1.3) mg/dL Direct Bilirubin 0.5 H (0.0-0.4) mg/dL AST 233 H (14-36) U/L ALT 315 H (0-35) U/L Alkaline Phosphatase 180 H (38-126) U/L Serum Total Protein 6.3 (6.3-8.2) g/dL Albumin 3.5 (3.5-5.0) g/dL Amylase 64 (30-110) U/L Lipase 26 (23-300) U/L Radiology Exams: Radiology Procedures Category Date Time Status ABDOMEN AND PELVIS W CONTRAST [CT] Stat Exams 04/27/19 16:12 Completed MRI ABD W/O CONTRAST [MRI] Routine Exams 04/28/19 12:40 Completed Multi-Disciplinary Progress Notes: Multi-Disciplinary Progress Notes 04/29/19 10:51 Case Management Note by Ilda Pappas NO CHANGE IN DC PLANS AT THIS TIME. PATIENT PLANS TO RETURN HOME WITH HER SON TO HELP NEEDED. PATIENT FEELS SHE WILL BE ABLE TO DO ANY SIMPLE POST OP CARE NEEDED. PATIENT ALSO HAS HOME HEALTHCARE THRU [facility] THAT CAN CONTINUE TO FO[place] AT [place]. Initialized on 04/29/19 10:51 - END OF NOTE Assessment/Plan (1) Choledocholithiasis with acute cholecystitis Current Visit: Yes Status: Acute Code(s): K80.42 - CALCULUS OF BILE DUCT W ACUTE CHOLECYSTITIS W/O OBSTRUCTION (2) Pancreatitis due to common bile duct stone Current Visit: Yes Status: Resolved Code(s): K85.90 - ACUTE PANCREATITIS WITHOUT NECROSIS OR INFECTION, UNSP; K80.50 - CALCULUS OF BILE DUCT W/O CHOLANGITIS OR CHOLECYST W/O OBST (3) Hiatal hernia with gastroesophageal reflux Current Visit: No Status: Chronic Code(s): K21.9 - GASTRO-ESOPHAGEAL REFLUX DISEASE WITHOUT ESOPHAGITIS; K44.9 - DIAPHRAGMATIC HERNIA WITHOUT OBSTRUCTION OR GANGRENE (4) COPD (chronic obstructive pulmonary disease) Current Visit: No Status: Chronic Qualifiers: Chronic bronchitis type: simple (5) Hypertension Current Visit: No Status: Chronic Qualifiers: Hypertension type: essential hypertension Qualified Code(s): I10 - Essential (primary) hypertension Code(s): I10 - ESSENTIAL (PRIMARY) HYPERTENSION (6) Osteoporosis, senile Current Visit: No Status: Chronic Code(s): M81.0 - AGE-RELATED OSTEOPOROSIS W/O CURRENT PATHOLOGICAL FRACTURE
[2019-04-29] MEDS ORDERED: Lactated Ringers 1,000 ML IV ONE (15:52)
[2019-04-29] MEDS ORDERED: Sensorcaine 0.25% 10 ML ONE (15:52)
[2019-04-29] MEDS ORDERED: DIPRIVAN 200 MG/20 ML IV ONE (18:24)
[2019-04-29] MEDS ORDERED: Quelicin Fliptop 200 MG/10 ML ONE (18:24)
[2019-04-29] MEDS ORDERED: Zemuron 100 MG/10 ML ONE (18:24)
[2019-04-29] MEDS ORDERED: SUBLIMAZE 100 MCG/2 ML ONE ×2 (18:25→19:27)
[2019-04-29] MEDS ORDERED: BRIDION 200MG/2ML IV ONE (18:26)
[2019-04-29] MEDS ORDERED: Decadron 4 MG INJ ONE (18:26)
[2019-04-29] MEDS ORDERED: TORAdol 30 mg Injection ONE (18:26)
[2019-04-29] MEDS ORDERED: Zofran 4 MG/2 ML VIAL ONE (18:26)
[2019-04-29] MEDS ORDERED: BREVIBLOC 100 MG/10 ML IV ONE (19:08)
[2019-04-29] MEDS ORDERED: APRESOLINE 20 MG/ML INJ ONE (19:41)
[2019-04-29] MEDS ORDERED: DILAUDID 2 MG INJECTION ONE (19:47)
[2019-04-29] MEDS ORDERED: MORPHINE SULFATE 2 MG INJ IV PRN (21:35)
[2019-04-29] MEDS ORDERED: TYLENOL 325 MG PO PRN (21:38)
[2019-04-29] MEDS ORDERED: NORCO 5/325 MG PO PRN (21:40)
[2019-04-29] MEDS: Zestril 20 MG PO SCH (22:05)
[2019-04-29] MEDS ORDERED: DUONEB 0.5-3 MG/3 ml Neb IH PRN (22:40)
[2019-04-29] MEDS: Zofran 4 MG/2 ML VIAL IV PRN (22:48)
[2019-04-29] MEDS ORDERED: PROVENTIL 2.5 MG/3 ML NEB IH ONE (22:58)
[2019-04-29] MEDS ORDERED: Dextrose 5% -0.45 NaCl 1000 ML 1,000 ML IV SCH (23:00)
[2019-04-29] MEDS: MAALOX ES 30 ML UNIT DOSE PO PRN (23:21)
[2019-04-30 05:20] LABS: ALBUMIN 3.4 g/dL (3.5-5.0); ALKALINE PHOSPHATASE 147 U/L (38-126); ANION GAP 9.8 MEQ/L (5-15); BLOOD UREA NITROGEN 17 mg/dL (7-17); CHLORIDE 105 mmol/L (98-107); Calcium 8.1 mg/dL (8.4-10.2); Carbon Dioxide 25 mmol/L (22-30); Creatinine 1 0.72 mg/dL (0.52-1.04); Glucose 193 mg/dL (74-106); Potassium 4.3 mmol/L (3.5-5.1); SGOT/AST 123 U/L (14-36); SGPT/ALT 234 U/L (0-35); SODIUM 136 mmol/L (137-145); Total Protein 6.2 g/dL (6.3-8.2)
[2019-04-30] MEDS: MAALOX ES 30 ML UNIT DOSE PO PRN (06:50)
[2019-04-30] MEDS ORDERED: DUONEB 0.5-3 MG/3 ml Neb IH SCH (07:00)
[2019-04-30] MEDS: Advair Hfa 230/21 Mcg COMMON CANISTER IH SCH ×2 (07:03→19:02)
[2019-04-30] MEDS ORDERED: FEVERALL 650 MG RC PRN (07:28)
[2019-04-30] MEDS ORDERED: ENOXAPARIN SODIUM SQ ONE (07:44)
[2019-04-30] MEDS ORDERED: MEFOXIN 1 Gm/ D5W 50 Ml** 1 G/50 ML ML IV SCH (08:00)
[2019-04-30] MEDS ORDERED: Ventolin Hfa MDI IH PRN (09:10)
[2019-04-30] MEDS ORDERED: PERCOCET TABLET 5/325MG PO PRN (09:10)
[2019-04-30] MEDS ORDERED: PROVENTIL COMMON CANISTER IH PRN (09:14)
[2019-04-30 09:17] LABS: Absolute Neutrophil Ct (ANC) 8.79 (1.4-6.9); BASOPHIL % 0.1 % (0.0-0.4); Basophil (Absolute #) 0.01 (0-0.4); Eosinophil % 0.1 % (0.00-5.0); Eosinophil (Absolute #) 0.01 (0-0.5); Hematocrit 37.4 % (35-47); Hemoglobin 12.3 gm/dl (12.0-16.0); Lymphocyte (Absolute #) 0.64 (1.0-4.6); Lymphocytes % 6.4 % (24.0-44.0); Mean Cell Volume 94.7 fl (78-100); Mean Corpuscular Hemoglobin 31.1 pg (26-32); Mean Corpuscular Hgb Concent. 32.9 g/dl (32-36); Mean Platelet Volume 10.3 fl (7.5-11.0); Monocyte (Absolute #) 0.57 (0.0-1.3); Monocytes % 5.7 % (0.0-12.0); Neutrophil % 87.7 % (36.0-66.0); Platelet Count 216 K/mm3 (150-450); Red Blood Count 3.95 M/mm3 (4.1-5.4); Red Cell Distribution Width 13.9 % (11.5-14.0)
[2019-04-30] MEDS: Ecotrin 325 MG PO SCH (09:49)
[2019-04-30] MEDS: ENOXAPARIN SODIUM SQ SCH (09:49)
--- NOTE | 2019-04-30 09:49 | OP ---
SURGERY DATE/TIME: 04/29/2019 183 PREOPERATIVE DIAGNOSIS: Symptomatic cholelithiasis. POSTOPERATIVE DIAGNOSIS: Symptomatic cholelithiasis. PROCEDURE: Laparoscopic cholecystectomy. SURGEON: Dr. Weber. ANESTHESIA: General endotracheal tube. COMPLICATIONS: None. CONDITION: Stable. INDICATIONS: A patient with symptomatic cholelithiasis. There was question about passing a stone. Her MRCP was satisfactory. Liver enzymes had been up moderately. DESCRIPTION OF PROCEDURE AND FINDINGS: She was taken to surgery. General anesthetic, routine prep and drape. Veress needle inserted. Opening pressure of 1, insufflating pressure 14. Additionally four - 5 ports. Good visualization. Cystic duct defined. Cystic artery defined. Cystic duct was packed with stones and the duct was fairly thick, up off the common bile duct. It was taken with a 12 port and vascular cartridge that was placed. It was clearly going transversely towards the gallbladder and not recurring upward so about a 1 inch zone had been totally dissected here. The cystic artery had already been triply clipped and transected. Gallbladder rolled out of gallbladder fossa. The gallbladder delivered through upper abdominal port. The field was totally clean. She did bleed fairly easy but the field was adequate. No drains were placed. The cystic duct had been sealed off with a staple line which looked excellent. Port closed deliberately with hole closure device. Skin closed with apolinar. Sterile dressing applied. The patient tolerated the procedure satisfactorily.
[2019-04-30] MEDS: Neurontin 100 MG PO SCH ×2 (09:50→21:18)
[2019-04-30] MEDS: Cyclobenzaprine 10 MG PO SCH (09:50)
[2019-04-30] MEDS: Protonix 40MG Tablet PO SCH (09:50)
[2019-04-30] MEDS: MEFOXIN 1 Gm/ D5W 50 Ml** 1 G/50 ML ML IV SCH ×3 (09:50→19:07)
[2019-04-30] MEDS: Zofran 4 MG/2 ML VIAL IV PRN (11:04)
[2019-04-30] MEDS: DUONEB 0.5-3 MG/3 ml Neb IH SCH ×2 (13:26→19:02)
--- NOTE | 2019-04-30 13:58 | PCM.NOTE ---
Date and Time: 04/30/19 3573 Subjective Assessment: Patient c/o feeling very weak and short of breath when up to bathroom this morning. Resp tech started patient on continuous O2 at 2L/NC and she is on Duoneb resp treatments.Patient has a chronic cough /COPD but c/o increased mucus and vomited up mucus this morning. She has eaten part of a sandwich for lunch. Objective Exam General Appearance: mild distress Neurologic Exam: alert, oriented x 3, cooperative Skin Exam: normal color, warm, dry Wound Assessment: Skin/Wound Assessment Wound/Incision Assessment Start: 04/30/19 08: 17 Text: Status: Active Freq: Q6H Protocol: Document 04/30/19 08:51 DS (Rec: 04/30/19 10:11 DS [id number]) Wound/Incision Assessment Abdomen Wound Assessment Shift Assessment Wound Type Incision Wound Stage Non Pressure Wound Dressing Status Dry & Intact Drainage Amount None Drainage Odor None/Absent General Appearance Well Approximated Apolinar Intact Comment 3 puncture incisions. Left abd open to air and 5 apolinar intact. Mid and right sites covered by bandaids. No new drainage or redness noted. Eye Exam: PERRL (no icterus) Ears, Nose, Throat Exam: moist mucous membranes (mild nasal congestion) Neck Exam: normal inspection Respiratory Exam: wheezing (right mid lung,improved post neb) Extremity Exam: normal inspection OBJECTIVE DATA Vital Signs: Vital Signs - 24 hr Temp Pulse Resp BP Pulse Ox 04/30/19 13:26 94 H 24 93 L 04/30/19 12:00 98.7 F 117 H 18 135/67 91 L 04/30/19 07:40 92 L 04/30/19 07:20 98.3 F 105 H 18 117/75 95 04/30/19 07:08 103 H 18 94 L 04/30/19 04:00 98.1 F 98 H 18 127/69 93 L 04/30/19 00:00 98.0 F 114 H 18 126/67 94 L 04/29/19 23:05 110 H 18 93 L 04/29/19 23:00 97.8 F 109 H 16 130/67 93 L 04/29/19 22:45 98.0 F 112 H 18 143/82 97 04/29/19 22:15 97.9 F 100 H 17 137/70 95 04/29/19 21:15 98.0 F 111 H 17 122/66 92 L 04/29/19 21:00 97.9 F 112 H 18 117/64 93 L 04/29/19 20:45 97.9 F 110 H 20 153/65 94 L 04/29/19 20:30 97.9 F 111 H 18 141/81 93 L 04/29/19 17:44 98.1 F 72 20 136/80 96 04/29/19 16:00 98.1 F 72 20 136/80 96 Pain Assessment - Last Documented Pain Intensity 0 Pain Scale Used 0-10 Pain Scale Intake and Output: Intake & Output 04/28/19 04/29/19 04/30/19 05/01/19 11:59 11:59 11:59 11:59 Intake Total 738 1366 697 Output Total 470 Balance 738 1366 227 Weight 77.5 kg 75 kg Lab Results: Lab Results-Last 24 Hours 04/30/19 04/30/19 Range/Units 04:30 04:40 WBC 10.0 (4.0-10.5) K/mm3 RBC 3.95 L (4.1-5.4) M/mm3 Hgb 12.3 (12.0-16.0) gm/dl Hct 37.4 (35-47) % MCV 94.7 (78-100) fl MCH 31.1 (26-32) pg MCHC 32.9 (32-36) g/dl RDW 13.9 (11.5-14.0) % Plt Count 216 (150-450) K/mm3 MPV 10.3 (7.5-11.0) fl Gran % 87.7 H (36.0-66.0) % Eos # (Auto) 0.01 (0-0.5) Absolute Lymphs (auto) 0.64 L (1.0-4.6) Absolute Monos (auto) 0.57 (0.0-1.3) Lymphocytes % 6.4 L (24.0-44.0) % Monocytes % 5.7 (0.0-12.0) % Eosinophils % 0.1 (0.00-5.0) % Basophils % 0.1 (0.0-0.4) % Absolute Granulocytes 8.79 H (1.4-6.9) Basophils # 0.01 (0-0.4) Sodium 136 L (137-145) mmol/L Potassium 4.3 (3.5-5.1) mmol/L Chloride 105 (98-107) mmol/L Carbon Dioxide 25 (22-30) mmol/L Anion Gap 9.8 (5-15) MEQ/L BUN 17 (7-17) mg/dL Creatinine 0.72 (0.52-1.04) mg/dL Estimated GFR > 60.0 ML/MIN Glucose 193 H (74-106) mg/dL Calcium 8.1 L (8.4-10.2) mg/dL Total Bilirubin 0.80 (0.2-1.3) mg/dL AST 123 H (14-36) U/L ALT 234 H (0-35) U/L Alkaline Phosphatase 147 H (38-126) U/L Serum Total Protein 6.2 L (6.3-8.2) g/dL Albumin 3.4 L (3.5-5.0) g/dL Assessment/Plan (1) Choledocholithiasis with acute cholecystitis Current Visit: Yes Status: Acute Code(s): K80.42 - CALCULUS OF BILE DUCT W ACUTE CHOLECYSTITIS W/O OBSTRUCTION (2) Pancreatitis due to common bile duct stone Current Visit: Yes Status: Resolved Code(s): K85.90 - ACUTE PANCREATITIS WITHOUT NECROSIS OR INFECTION, UNSP; K80.50 - CALCULUS OF BILE DUCT W/O CHOLANGITIS OR CHOLECYST W/O OBST (3) Hiatal hernia with gastroesophageal reflux Current Visit: No Status: Chronic Code(s): K21.9 - GASTRO-ESOPHAGEAL REFLUX DISEASE WITHOUT ESOPHAGITIS; K44.9 - DIAPHRAGMATIC HERNIA WITHOUT OBSTRUCTION OR GANGRENE (4) COPD (chronic obstructive pulmonary disease) Current Visit: No Status: Chronic Qualifiers: Chronic bronchitis type: simple (5) Hypertension Current Visit: No Status: Chronic Qualifiers: Hypertension type: essential hypertension Qualified Code(s): I10 - Essential (primary) hypertension Code(s): I10 - ESSENTIAL (PRIMARY) HYPERTENSION (6) Hypocalcemia Current Visit: Yes Status: Acute Assessment & Plan: start replacement calcium,moniter Code(s): E83.51 - HYPOCALCEMIA (7) COPD with exacerbation Current Visit: Yes Status: Acute Assessment & Plan: duoneb,O2-moniter Code(s): J44.1 - CHRONIC OBSTRUCTIVE PULMONARY DISEASE W (ACUTE) EXACERBATION
[2019-04-30] MEDS: Tums EX 750 MG PO SCH (16:20)
[2019-04-30] MEDS: Zestril 20 MG PO SCH (21:18)
[2019-04-30] MEDS: Zocor 10MG PO SCH (21:18)
[2019-04-30] MEDS ORDERED: NON-FORMULARY ITEM (Lovastatin [Lovastatin] 20 MG) PO SCH (22:00)
[2019-05-01] MEDS: MEFOXIN 1 Gm/ D5W 50 Ml** 1 G/50 ML ML IV SCH ×2 (00:58→06:08)
[2019-05-01 05:19] LABS: Absolute Neutrophil Ct (ANC) 5.54 (1.4-6.9); BASOPHIL % 0.2 % (0.0-0.4); Basophil (Absolute #) 0.02 (0-0.4); Eosinophil % 3.2 % (0.00-5.0); Eosinophil (Absolute #) 0.29 (0-0.5); Hematocrit 34.1 % (35-47); Hemoglobin 11.2 gm/dl (12.0-16.0); Lymphocyte (Absolute #) 2.08 (1.0-4.6); Lymphocytes % 23.1 % (24.0-44.0); Mean Cell Volume 95.5 fl (78-100); Mean Corpuscular Hemoglobin 31.4 pg (26-32); Mean Corpuscular Hgb Concent. 32.8 g/dl (32-36); Mean Platelet Volume 9.5 fl (7.5-11.0); Monocyte (Absolute #) 1.07 (0.0-1.3); Monocytes % 11.9 % (0.0-12.0); Neutrophil % 61.6 % (36.0-66.0); Platelet Count 207 K/mm3 (150-450); Red Blood Count 3.57 M/mm3 (4.1-5.4)
[2019-05-01] MEDS: DUONEB 0.5-3 MG/3 ml Neb IH SCH ×3 (06:50→20:53)
[2019-05-01] MEDS: Advair Hfa 230/21 Mcg COMMON CANISTER IH SCH ×2 (06:50→20:51)
[2019-05-01] MEDS: ENOXAPARIN SODIUM SQ SCH (09:05)
[2019-05-01] MEDS: Cyclobenzaprine 10 MG PO SCH (09:05)
[2019-05-01] MEDS: Ecotrin 325 MG PO SCH (09:05)
[2019-05-01] MEDS: Neurontin 100 MG PO SCH ×2 (09:05→21:14)
[2019-05-01] MEDS: Protonix 40MG Tablet PO SCH (09:05)
--- NOTE | 2019-05-01 09:05 | PCM.NOTE ---
Date and Time: 05/01/19902 Subjective Assessment: She is feeling better, breathing is better. Is on 3L NC currently. Objective Exam General Appearance: no apparent distress, alert, obese Neurologic Exam: oriented x 3, cooperative Skin Exam: warm, dry, No rash Wound Assessment: Skin/Wound Assessment Wound/Incision Assessment Start: 04/30/19 08: 17 Text: Status: Active Freq: Q6H Protocol: Document 05/01/19 07:59 DS (Rec: 05/01/19 08:13 DS [id number]) Wound/Incision Assessment Abdomen Wound Assessment Shift Assessment Wound Type Incision Wound Stage Non Pressure Wound Dressing Status Dry & Intact Drainage Amount None Drainage Odor None/Absent General Appearance Well Approximated Leigh Intact Comment 4 puncture site incisions. Mid and right covered with bandaids. Left is open to air and 5 apolinar intact. bruising noted at sites. No redness or new drainage noted. Wound Photo Photo Taken No Neck Exam: normal inspection Respiratory Exam: normal breath sounds, lungs clear, No crackles/rales, No rhonchi, No wheezing Cardiovascular Exam: regular rate/rhythm, normal heart sounds, No murmur Gastrointestinal/Abdomen Exam: soft, normal bowel sounds, other (surgical wounds c/d/i, bruising surrounding area), No tenderness, No distention, No mass , No guarding, No rebound Extremity Exam: normal inspection, No pedal edema, No swelling OBJECTIVE DATA Vital Signs: Vital Signs - 24 hr Temp Pulse Resp BP Pulse Ox 05/01/19 07:31 98.9 F 88 20 130/67 95 05/01/19 07:00 85 16 98 05/01/19 04:00 97.5 F 88 18 118/58 95 05/01/19 00:00 98.1 F 90 17 98/57 96 04/30/19 20:00 98.5 F 103 H 17 108/59 96 04/30/19 19:05 100 H 18 92 L 04/30/19 16:00 99.6 F 107 H 18 119/65 94 L 04/30/19 13:26 94 H 24 93 L 04/30/19 12:00 98.7 F 117 H 18 135/67 91 L Pain Assessment - Last Documented Pain Intensity 0 Pain Scale Used 0-10 Pain Scale Intake and Output: Intake & Output 04/28/19 04/29/19 04/30/19/30/20 11:59 11:59 11:59 11:59 Intake Total 738 9506 588 7820 Output Total 470 200 Balance 738 1366 227 966 Weight 77.5 kg 75 kg Lab Results: Lab Results-Last 24 Hours 04/30/19 05/01/19 Range/Units 04:30 05:14 WBC 10.0 9.0 (4.0-10.5) K/mm3 RBC 3.95 L 3.57 L (4.1-5.4) M/mm3 Hgb 12.3 11.2 L (12.0-16.0) gm/dl Hct 37.4 34.1 L (35-47) % MCV 94.7 95.5 (78-100) fl MCH 31.1 31.4 (26-32) pg MCHC 32.9 32.8 (32-36) g/dl RDW 13.9 14.0 (11.5-14.0) % Plt Count 216 207 (150-450) K/mm3 MPV 10.3 9.5 (7.5-11.0) fl Gran % 87.7 H 61.6 (36.0-66.0) % Eos # (Auto) 0.01 0.29 (0-0.5) Absolute Lymphs (auto) 0.64 L 2.08 (1.0-4.6) Absolute Monos (auto) 0.57 1.07 (0.0-1.3) Lymphocytes % 6.4 L 23.1 L (24.0-44.0) % Monocytes % 5.7 11.9 (0.0-12.0) % Eosinophils % 0.1 3.2 (0.00-5.0) % Basophils % 0.1 0.2 (0.0-0.4) % Absolute Granulocytes 8.79 H 5.54 (1.4-6.9) Basophils # 0.01 0.02 (0-0.4) Assessment/Plan (1) S/P laparoscopic cholecystectomy Current Visit: Yes Status: Acute Assessment & Plan: Feeling good, POD #2 today. Likely home tomorrow. Code(s): Z90.49 - ACQUIRED ABSENCE OF OTHER SPECIFIED PARTS OF DIGESTIVE TRACT (2) COPD (chronic obstructive pulmonary disease) Current Visit: No Status: Chronic Qualifiers: Chronic bronchitis type: simple Assessment & Plan: Trying to wean off O2 today. (3) Hiatal hernia with gastroesophageal reflux Current Visit: No Status: Chronic Code(s): K21.9 - GASTRO-ESOPHAGEAL REFLUX DISEASE WITHOUT ESOPHAGITIS; K44.9 - DIAPHRAGMATIC HERNIA WITHOUT OBSTRUCTION OR GANGRENE (4) Hypertension Current Visit: No Status: Chronic Qualifiers: Hypertension type: essential hypertension Qualified Code(s): I10 - Essential (primary) hypertension Code(s): I10 - ESSENTIAL (PRIMARY) HYPERTENSION
[2019-05-01] MEDS: Tums EX 750 MG PO SCH ×4 (09:06→21:15)
[2019-05-01] MEDS: Zestril 20 MG PO SCH (21:14)
[2019-05-01] MEDS: Zocor 10MG PO SCH (21:14)
[2019-05-02] MEDS: DUONEB 0.5-3 MG/3 ml Neb IH SCH ×2 (07:01→13:06)
[2019-05-02] MEDS: Advair Hfa 230/21 Mcg COMMON CANISTER IH SCH (07:01)
[2019-05-02 07:55] VITALS: O2SAT 93
[2019-05-02] MEDS: Protonix 40MG Tablet PO SCH (08:37)
[2019-05-02] MEDS: Cyclobenzaprine 10 MG PO SCH (08:37)
[2019-05-02] MEDS: Ecotrin 325 MG PO SCH (08:37)
[2019-05-02] MEDS: ENOXAPARIN SODIUM SQ SCH (08:37)
[2019-05-02] MEDS: Tums EX 750 MG PO SCH (08:40)
[2019-05-02] MEDS: Neurontin 100 MG PO SCH (08:43)
[2019-05-02 11:33] VITALS: BP 133/70
--- NOTE | 2019-05-02 12:03 | PCM.DS ---
Discharge Summary Date of Admission: 04/30/19 13:53 Admitting Physician: FRANCK MEDRANO Consults: Consults on Case 04/29/19 10:11 Consult Surgery ROUTINE Primary Care Provider: KENNETH JOLLY DO Allergies Allergies metformin Adverse Reaction (Verified 03/22/19 00:59) Sick to stomach, headache Hospital Summary - Hospital Course Hospital Course: Patient was admitted through ER with acute cholecystitis . Pancreatic enzymes were elevated but normalized over night. Liver enzymes were elevated and came down significantlty and Dr sanabria was able to take her to surgery without an ERCP for lap cholecystectomy. She had postop complications due to COPD and required O2 and albuterol nebulizer treatments.She was unsteady on her feet due to generalized weakness . Calcium was low and treated with oral meds.Hgb A1c mildly elevated without previous dg DM2.Patient is back to baseline re COPD and is ambulating safely without assistance.She is tolerating a regular diet. - Vitals & Intake/Output Vital Signs: Vital Signs Temperature 99 F 05/02/19 11:32 Pulse Rate 92 H 05/02/19 11:32 Respiratory Rate 18 05/02/19 11:32 Blood Pressure 133/70 05/02/19 11:32 O2 Sat by Pulse Oximetry 93 L 05/02/19 11:32 Intake & Output: Intake & Output 04/29/19 04/30/19 05/01/19 05/02/19 11:59 11:59 11:59 11:59 Intake Total 5597 112 3398 840 Output Total 444 148 6053 Balance 1366 227 666 -460 Weight 75 kg 75 kg - Lab Result Diagrams: 05/01/19 05:14 04/30/19 04:40 Lab Results-Last 24 Hrs: Accuchecks Date 05/01/19 Date 05/01/19 Time 21:00 Time 16:30 Accucheck Value: 184 Accucheck Value: 116 Accucheck Value: 166 Accucheck Value: 133 Micro Results-Entire Visit: Accuchecks Date 05/01/19 Date 05/01/19 Time 21:00 Time 16:30 Accucheck Value: 184 Accucheck Value: 116 Accucheck Value: 166 Accucheck Value: 133 - Procedures and Test Procedures and Tests throughout Hospitalization: Therapy Orders & Screens 04/27/19 18:02 Respiratory Therapy Assessment DAILY Comment: Diagnosis: sob 04/27/19 18:03 Peak Expiratory Flow Rate ONCE Comment: Reason For Exam: Diagnosis: sob 04/27/19 18:58 Respiratory Therapy Consult ROUTINE Comment: Reason For Exam: 04/27/19 21:34 Respiratory Therapy Assessment DAILY Comment: 04/27/19 21:36 Peak Expiratory Flow Rate DAILY Comment: Reason For Exam: 04/27/19 22:47 Smoking Cessation Education ONCE Comment: Diagnosis: Cholelithiasis; Pancreatitis; Acute cholecystitis Smoking Status: Light tobacco smoker How long have you smoked: years Have you smoked in the past 12 months: Yes Approximately how many cigarettes per day: 1-2 per day Do you dip or chew tobacco: No If,Former Smoker,when did you quit: one month ago 04/29/19 22:48 Oxygen Nasal Cannula 3 lpm Comment: Diagnosis: Cholelithiasis; Pancreatitis; Acute cholecystitis 04/30/19 14:44 Incentive Spirometry TID Comment: Diagnosis: S/P LAP JANENE, COPD 05/01/19 11:21 RT Miscellaneous Order ROUTINE Comment: Physician Instructions: WEAN OFF OXYGEN Reason For Exam: Diagnosis: S/P LAP JANENE, COPD Discharge Exam General Appearance: no apparent distress Neurologic Exam: alert, oriented x 3 Eye Exam: eyes nml inspection Ears, Nose, Throat Exam: normal ENT inspection Neck Exam: normal inspection Respiratory Exam: diminished breath sounds (bases,no rales no ronchi no wheeze) Cardiovascular Exam: regular rate/rhythm Gastrointestinal/Abdomen Exam: soft, normal bowel sounds, tenderness (minimal epigastric ,no guarding) Extremity Exam: normal inspection Skin Exam: normal color, warm, dry Wound Assessment: Skin/Wound Assessment Wound/Incision Assessment Start: 04/30/19 08: 17 Text: Status: Active Freq: Q6H Protocol: Document 05/02/19 08:00 AR (Rec: 05/02/19 08:45 AR [id number]) Wound/Incision Assessment Abdomen Wound Assessment Shift Assessment Wound Type Incision Wound Stage Non Pressure Wound Drainage Amount None Secondary Dressing Bandaid Comment CDI Wound Photo Photo Taken No Final Diagnosis/Problem List - Final Discharge Diagnosis/Problem (1) Choledocholithiasis with acute cholecystitis Current Visit: Yes Status: Resolved Assessment & Plan: lap cholecystectomy with Dr Yamilka sanabria. Code(s): K80.42 - CALCULUS OF BILE DUCT W ACUTE CHOLECYSTITIS W/O OBSTRUCTION (2) Pancreatitis due to common bile duct stone Current Visit: Yes Status: Resolved Code(s): K85.90 - ACUTE PANCREATITIS WITHOUT NECROSIS OR INFECTION, UNSP; K80.50 - CALCULUS OF BILE DUCT W/O CHOLANGITIS OR CHOLECYST W/O OBST (3) Hiatal hernia with gastroesophageal reflux Current Visit: No Status: Chronic Code(s): K21.9 - GASTRO-ESOPHAGEAL REFLUX DISEASE WITHOUT ESOPHAGITIS; K44.9 - DIAPHRAGMATIC HERNIA WITHOUT OBSTRUCTION OR GANGRENE (4) COPD (chronic obstructive pulmonary disease) Current Visit: No Status: Chronic Assessment & Plan: at baseline,continue home meds (5) Hypertension Current Visit: No Status: Chronic Assessment & Plan: continue home meds Code(s): I10 - ESSENTIAL (PRIMARY) HYPERTENSION (6) Hypocalcemia Current Visit: Yes Status: Resolved Code(s): E83.51 - HYPOCALCEMIA (7) COPD with exacerbation Current Visit: Yes Status: Acute Assessment & Plan: at baseline,continue to work towards smoke cessation Code(s): J44.1 - CHRONIC OBSTRUCTIVE PULMONARY DISEASE W (ACUTE) EXACERBATION - Discharge Disposition: Home, Self-Care Condition: Good Prescriptions: New Albuterol/Ipratropium 3ml Neb* [DUONEB 0.5-3 MG/3 ml Neb] 3 ml IH TIDRT ampul.neb Calcium Carbonate 750 mg [Tums EX 750 MG] 750 mg PO TID tab.chew Continue lisinopriL [Lisinopril] 20 mg PO HS Albuterol 8 gm Mdi Hfa [Ventolin Hfa MDI] 8 gm IH QIDPRN PRN PRN Reason: Severe Pain Albuterol 2.5 mg/3 ml Neb [Proventil 2.5 mg/3 ml Neb] 2.5 mg IH BID Lovastatin 20 mg PO HS Aspirin EC 325 mg [Ecotrin 325 MG] 325 mg PO DAILY PANTOPRAZOLE 40 mg Tablet [Protonix 40MG Tablet] 40 mg PO DAILY #30 tab Ergocalciferol (Vitamin D2) [Vitamin D2] 50,000 unit PO Q7D #4 capsule Budesonide/Formoterol Fumarate [Symbicort 160-4.5 Mcg Inhaler] 10.2 gm IH BID Cyclobenzaprine HCl 10 mg [Cyclobenzaprine 10 MG] 10 mg PO DAILY Oxycodone/APAP 5 mg/325 mg [Percocet Tablet 5/325Mg] 1 tab PO Q6H PRN PRN PRN Reason: Pain Gabapentin 100 mg PO BID Additional Instructions: [facility] WILL FOLLOW ON DISCHARGE. THEY WILL BE IN CONTACT. THEIR PHONE NUMBER IS [phone] Follow up with: YAMILKA SANABRIA [ACTIVE STAFF] - 1 Week KENNETH JOLLY DO [Primary Care Provider] - 05/20/19 11:20 am
[2019-05-02 13:08] VITALS: PULSE 84
[2019-05-04] MEDS ORDERED: VITAMIN D2 PO SCH (10:00)
== END 2019-05-02 13:20 | disposition home health service (06) | DRG 444 ==
LOC: ED 15:28 → UNDOADMOB 18:20 → MED SURG 18:20 → OBSVTOIN 04-30 13:53 → INTOOBSV 04-30 13:53
PROVIDERS: ADMIT Family Medicine; ATTEND Family Medicine
DX: K80.42 Calculus of bile duct with acute cholecystitis without obstruction (principal); K85.90 Acute pancreatitis without necrosis or infection, unspecified; K21.9 Gastro-esophageal reflux disease without esophagitis; K44.9 Diaphragmatic hernia without obstruction or gangrene; I10 Essential (primary) hypertension; M81.0 Age-related osteoporosis without current pathological fracture; J44.9 Chronic obstructive pulmonary disease, unspecified; E83.51 Hypocalcemia; R53.1 Weakness; Z79.899 Other long term (current) drug therapy
CPT/HCPCS: 36415; 47562; 74177; 74181; 80048; 80053; 80076; 82150; 82962; 83036; 83605; 83690; 84484; 85025; 94150; 94640; 94760; 96360; 96374; 96375; 99291; G0378; 36000; 88304; 99100; 99285; J0330; J0360; J0694; J1100; J1170; J1650; J1885; J2270; J2405; J2543; J2550; J2704; J3010; J7609; A9270-GY

== ENCOUNTER 2021-04-02 13:29 | Observation (INO) | payer MEDICARE, OTHER ==
[2021-04-02] MEDS ORDERED: Zofran 4 MG/2 ML VIAL IV ONE (13:42)
[2021-04-02] MEDS ORDERED: MORPHINE SULFATE 4 MG INJ IV ONE (13:42)
[2021-04-02] MEDS ORDERED: Zofran 4 MG/2 ML VIAL ONE (13:45)
[2021-04-02] MEDS ORDERED: MORPHINE SULFATE 4 MG INJ ONE (13:45)
[2021-04-02] MEDS: Sodium Chloride 0.9% 1000 ML 1,000 ML IV SCH ×2 (13:46→18:51)
[2021-04-02 14:10] LABS: Absolute Neutrophil Ct (ANC) 6.17 (1.4-6.9); Basophil (Absolute #) 0.02 (0-0.4); Eosinophil % 2.1 % (0.00-5.0); Eosinophil (Absolute #) 0.17 (0-0.5); Hematocrit 43.9 % (35-47); Hemoglobin 14.3 gm/dl (12.0-16.0); Lymphocytes % 14.5 % (24.0-44.0); Mean Corpuscular Hgb Concent. 32.6 g/dl (32-36); Mean Platelet Volume 10.3 fl (7.5-11.0); Monocytes % 8.5 % (0.0-12.0); Neutrophil % 74.7 % (36.0-66.0); Platelet Count 242 K/mm3 (150-450); Red Blood Count 4.77 M/mm3 (4.1-5.4); Red Cell Distribution Width 13.2 % (11.5-14.0); White Blood Count 8.3 K/mm3 (4.0-10.5)
--- NOTE | 2021-04-02 14:23 | ERPHSYRPT ---
- History of Present Illness Time Seen by Provider: 04/02/21 13:30 Historian: patient Exam Limitations: no limitations Patient Subjective Stated Complaint: Pt states that she has been hurting in her lower abdomen for the past 2 days Triage Nursing Assessment: Pt was brought to the ER by her daughter, hypertensive, rates pain as 10/10, denies pain to abdomen with palpatation, pulses normal, skin n/w/diaphoretic, hx of abdominal issues Physician History: 81 years old female presented in the ER with chief complaint of lower abdominal pain off and on since yesterday, moderate to severe dull to sharp pain without any significant aggravating or relieving factors. Denies associated nausea vomiting or diarrhea. Patient has been taking [id number] pain meds with no significant relief. Denies any urinary symptoms. Timing/Duration: yesterday, constant, gradual onset, worse Activities at Onset: rest Quality: sharpness Abdominal Pain Onset Location: LLQ, suprapubic Pain Radiation: no radiation Severity of Pain-Max: moderate Severity of Pain-Current: moderate Modifying Factors: Improves With: nothing Associated Symptoms: denies symptoms Previous symptoms: no prior history Allergies/Adverse Reactions: metformin Adverse Reaction (Verified 04/02/21 13:46) Sick to stomach, headache Home Medications: Albuterol 2.5 mg/3 ml Neb [Proventil 2.5 mg/3 ml Neb] 2.5 mg IH BID 03/08/19 [History] Albuterol 8 gm Mdi Hfa [Ventolin Hfa MDI] 8 gm IH QIDPRN PRN 03/08/19 [History] lisinopriL [Lisinopril] 20 mg PO HS 03/08/19 [History] Lovastatin 20 mg PO HS 03/21/19 [History] Aspirin EC 325 mg [Ecotrin 325 MG] 325 mg PO DAILY 03/22/19 [History] Calcium Carbonate/Vitamin D3 [Calcium 600 + Vit D Caplet] 1 each PO BID 08/22/19 [History] ALPRAZolam 0.25 MG [xanAX 0.25 MG] 0.25 mg PO DAILY 04/02/21 [History] Fluticasone/Umeclidin/Vilanter [Trelegy Ellipta 100-62.5-25] 1 inh PO UD [History] Metoprolol Succinate 25 mg Xl* [Toprol-Xl 25MG Tablets] 25 mg PO DAILY 04/02/21 [History] Montelukast Sodium 10 mg [Singulair 10 MG] 10 mg PO DAILY 04/02/21 [History] Omeprazole 40 mg PO DAILY 04/02/21 [History] Hx Tetanus, Diphtheria Vaccination/Date Given: No Hx Influenza Vaccination/Date Given: Yes Hx Pneumococcal Vaccination/Date Given: Yes Travel Risk - International Travel Have you traveled outside of the country in past 3 weeks: No - Coronavirus Screening Are you exhibiting any of the following symptoms?: No Close contact with a COVID-19 positive Pt in past 14-21 Days: No - Vaccine Status Have you recieved a Covid-19 vaccination: Yes City [employer]: [employer] - Vaccination Dates Date of 2cond Vaccination (if applicable): 05/2020 - Review of Systems Constitutional: No Symptoms Eyes: No Symptoms Ears, Nose, & Throat: No Symptoms Respiratory: No Symptoms Cardiac: No Symptoms Abdominal/Gastrointestinal: Abdominal Pain Genitourinary Symptoms: No Symptoms Musculoskeletal: Arthralgias Skin: No Symptoms Neurological: No Symptoms Psychological: No Symptoms Endocrine: No Symptoms Hematologic/Lymphatic: No Symptoms Immunological/Allergic: No Symptoms - Past Medical History Pertinent Past Medical History: Yes Neurological History: No Pertinent History ENT History: No Pertinent History Cardiac History: High Cholesterol, Hypertension Respiratory History: COPD, Other Endocrine Medical History: Other Musculoskeletal History: Arthritis, Osteoporosis GI Medical History: Diverticulitis, GERD History: No Pertinent History Psycho-Social History: No Pertinent History Female Reproductive Disorders: No Pertinent History Other Medical History: seasonal allergies;borderline diabetic - Past Surgical History Past Surgical History: Yes Neuro Surgical History: No Pertinent History Cardiac: No Pertinent History Respiratory: No Pertinent History Gastrointestinal: Appendectomy, Cholecystectomy, Other Genitourinary: No Pertinent History Musculoskeletal: No Pertinent History Female Surgical History: No Pertinent History Other Surgical History: diagnostic open abdominal, ankle fx and surgery - Social History Smoking Status: Former smoker How long have you smoked: 65 years Exposure to second hand smoke: No Drug Use: none Patient Lives Alone: No - Nursing Vital Signs Nursing Vital Signs: Initial Vital Signs Temperature 97.9 F 04/02/21 13:34 Pulse Rate 89 04/02/21 13:34 Blood Pressure 167/124 04/02/21 13:34 O2 Sat by Pulse Oximetry 93 L 04/02/21 13:34 Pain Scale Pain Intensity 0 - Physical Exam General Appearance: no apparent distress, alert Eye Exam: PERRL/EOMI Ears, Nose, Throat Exam: normal ENT inspection Neck Exam: normal inspection, supple, full range of motion Respiratory Exam: normal breath sounds, lungs clear Cardiovascular Exam: regular rate/rhythm, normal heart sounds Gastrointestinal/Abdomen Exam: soft, normal bowel sounds, tenderness (Lower abdomen) Back Exam: normal inspection Extremity Exam: normal inspection, normal range of motion, pelvis stable Neurologic Exam: alert, oriented x 3, cooperative, 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-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 nml as tested Skin Exam: normal color SpO2 Interpretation: normal SpO2: 93 O2 Delivery: Room Air Ordered Tests: Active Orders 24 hr Category Date Time Status IV Insertion STAT Care 04/02/21 13:42 Active NPO (ED) STAT Care 04/02/21 13:42 Active Oxygen-ED Only Nasal Cannula 2 lpm Care 04/02/21 14:00 Active ABDOMEN AND PELVIS W CONTRAST [CT] Stat Exams 04/02/21 14:53 Taken CBC W DIFF Stat Lab 04/02/21 13:48 Completed CMP Stat Lab 04/02/21 13:48 Completed LIPASE Stat Lab 04/02/21 13:48 Completed Lactic Acid Stat Lab 04/02/21 13:42 Completed UA W/RFX UR CULTURE Stat Lab 04/02/21 13:58 Completed Medication Summary Generic Name Dose Route Start Last Admin Trade Name Freq PRN Reason Stop Dose Admin Sodium Chloride 1,000 mls @ 100 mls/hr 04/02/21 13:45 04/02/21 13:46 Sodium Chloride 0.9% 1000 Ml IV 05/02/21 13:44 100 mls/hr .Q10H JANNETH Administration Discontinued Medications Generic Name Dose Route Start Last Admin Trade Name Freq PRN Reason Stop Dose Admin Morphine Sulfate 4 mg 04/02/21 13:42 04/02/21 13:46 Morphine Sulfate 4 Mg/Ml Injection IV 04/02/21 13:43 4 mg STAT ONE Administration Morphine Sulfate Confirm 04/02/21 13:45 Morphine Sulfate 4 Mg/Ml Injection Administered 04/02/21 13:46 Dose 4 mg .ROUTE .STK-MED ONE Ondansetron HCl 4 mg 04/02/21 13:42 04/02/21 13:46 Ondansetron Hcl 4 Mg/2 Ml Vial IV 04/02/21 13:43 4 mg STAT ONE Administration Ondansetron HCl Confirm 04/02/21 13:45 Ondansetron Hcl 4 Mg/2 Ml Vial Administered 04/02/21 13:46 Dose 4 mg .ROUTE .STK-MED ONE Lab/Rad Data: Laboratory Result Diagrams 04/02/21 13:48 04/02/21 13:48 Laboratory Results 04/02/21 04/02/21 04/02/21 Range/Units 16:53 13:58 13:48 WBC (4.0-10.5) K/mm3 RBC (4.1-5.4) M/mm3 Hgb (12.0-16.0) gm/dl Hct (35-47) % MCV (78-100) fl MCH (26-32) pg MCHC (32-36) g/dl RDW (11.5-14.0) % Plt Count (150-450) K/mm3 MPV (7.5-11.0) fl Gran % (36.0-66.0) % Eos # (Auto) (0-0.5) Absolute Lymphs (auto) (1.0-4.6) Absolute Monos (auto) (0.0-1.3) Lymphocytes % (24.0-44.0) % Monocytes % (0.0-12.0) % Eosinophils % (0.00-5.0) % Basophils % (0.0-0.4) % Absolute Granulocytes (1.4-6.9) Basophils # (0-0.4) Sodium 136 L (137-145) mmol/L Potassium 4.1 (3.5-5.1) mmol/L Chloride 104 (98-107) mmol/L Carbon Dioxide 25 (22-30) mmol/L Anion Gap 11.9 (5-15) MEQ/L BUN 16 (7-17) mg/dL Creatinine 0.92 (0.52-1.04) mg/dL Estimated GFR > 60.0 ML/MIN Glucose 157 H (74-106) mg/dL Lactic Acid (0.4-2.0) Calcium 9.3 (8.4-10.2) mg/dL Total Bilirubin 0.80 (0.2-1.3) mg/dL AST 20 (14-36) U/L ALT 13 (0-35) U/L Alkaline Phosphatase 121 (38-126) U/L Serum Total Protein 6.3 (6.3-8.2) g/dL Albumin 3.7 (3.5-5.0) g/dL Lipase 28 (23-300) U/L Urine Color JAMAAL (YELLOW) Urine Appearance SLIGHTLY CLOUDY (CLEAR) Urine pH 5.0 (5-6) Ur Specific Grulla 1.019 (1.005-1.025) Urine Protein NEGATIVE (Negative) Urine Ketones TRACE (NEGATIVE) Urine Blood NEGATIVE (0-5) Luke/ul Urine Nitrite NEGATIVE (NEGATIVE) Urine Bilirubin NEGATIVE (NEGATIVE) Urine Urobilinogen 2 (0-1) mg/dL Ur Leukocyte Esterase NEGATIVE (NEGATIVE) Urine WBC (Auto) 3-5 (0-5) /HPF Urine RBC (Auto) NONE (0-2) /HPF U Hyaline Cast (Auto) 0-2 (0-2) /LPF U Epithel Cells (Auto) NONE (FEW) /HPF Urine Mucus (Auto) SLIGHT (NEGATIVE) /HPF Urine Culture Reflexed NO (NO) Urine Glucose NEGATIVE (NEGATIVE) mg/dL Influenza Type A Ag NEGATIVE (NEGATIVE) Influenza Type B Ag NEGATIVE (NEGATIVE) RSV (PCR) NEGATIVE (Negative) SARS-CoV-2 (PCR) POSITIVE A (NEGATIVE) 04/02/21 04/02/21 Range/Units 13:48 13:42 WBC 8.3 (4.0-10.5) K/mm3 RBC 4.77 (4.1-5.4) M/mm3 Hgb 14.3 (12.0-16.0) gm/dl Hct 43.9 (35-47) % MCV 92.0 (78-100) fl MCH 30.0 (26-32) pg MCHC 32.6 (32-36) g/dl RDW 13.2 (11.5-14.0) % Plt Count 242 (150-450) K/mm3 MPV 10.3 (7.5-11.0) fl Gran % 74.7 H (36.0-66.0) % Eos # (Auto) 0.17 (0-0.5) Absolute Lymphs (auto) 1.20 (1.0-4.6) Absolute Monos (auto) 0.70 (0.0-1.3) Lymphocytes % 14.5 L (24.0-44.0) % Monocytes % 8.5 (0.0-12.0) % Eosinophils % 2.1 (0.00-5.0) % Basophils % 0.2 (0.0-0.4) % Absolute Granulocytes 6.17 (1.4-6.9) Basophils # 0.02 (0-0.4) Sodium (137-145) mmol/L Potassium (3.5-5.1) mmol/L Chloride (98-107) mmol/L Carbon Dioxide (22-30) mmol/L Anion Gap (5-15) MEQ/L BUN (7-17) mg/dL Creatinine (0.52-1.04) mg/dL Estimated GFR ML/MIN Glucose (74-106) mg/dL Lactic Acid 1.4 (0.4-2.0) Calcium (8.4-10.2) mg/dL Total Bilirubin (0.2-1.3) mg/dL AST (14-36) U/L ALT (0-35) U/L Alkaline Phosphatase (38-126) U/L Serum Total Protein (6.3-8.2) g/dL Albumin (3.5-5.0) g/dL Lipase (23-300) U/L Urine Color (YELLOW) Urine Appearance (CLEAR) Urine pH (5-6) Ur Specific Grulla (1.005-1.025) Urine Protein (Negative) Urine Ketones (NEGATIVE) Urine Blood (0-5) Luke/ul Urine Nitrite (NEGATIVE) Urine Bilirubin (NEGATIVE) Urine Urobilinogen (0-1) mg/dL Ur Leukocyte Esterase (NEGATIVE) Urine WBC (Auto) (0-5) /HPF Urine RBC (Auto) (0-2) /HPF U Hyaline Cast (Auto) (0-2) /LPF U Epithel Cells (Auto) (FEW) /HPF Urine Mucus (Auto) (NEGATIVE) /HPF Urine Culture Reflexed (NO) Urine Glucose (NEGATIVE) mg/dL Influenza Type A Ag (NEGATIVE) Influenza Type B Ag (NEGATIVE) RSV (PCR) (Negative) SARS-CoV-2 (PCR) (NEGATIVE) - Progress Progress: improved, pain not gone completely, re-examined Progress Note: 04/02/21 16:33 81 years old is evaluated for lower abdominal pain. She is given symptomatic treatment with morphine, feeling better on reevaluation. Because of morphine she has a little desats in upper 80s, placed on 2 L oxygen. Work-up showed normal white count, grossly unremarkable chemistries, no UTI. CT showed chronic colitis with some questionable diverticulitis without abscess or perforation. given a dose of antibiotics. Patient still have pain but not completely resolved. Discussed with , reviewed history, work-up and patient is admitted for observation. Discussed with : Kelsy Will see patient in: hospital (observation) Counseled pt/family regarding: lab results, diagnosis, rad results - Departure Departure Disposition: Observation Clinical Impression: Infectious colitis Condition: Stable Critical Care Time: No Referrals: KENNETH JOLLY, [Primary Care Provider] - Follow up/PCP as directed
[2021-04-02 14:33] LABS: ALBUMIN 3.7 g/dL (3.5-5.0); ALKALINE PHOSPHATASE 121 U/L (38-126); ANION GAP 11.9 MEQ/L (5-15); BLOOD UREA NITROGEN 16 mg/dL (7-17); CHLORIDE 104 mmol/L (98-107); Calcium 9.3 mg/dL (8.4-10.2); Carbon Dioxide 25 mmol/L (22-30); Creatinine 1 0.92 mg/dL (0.52-1.04); EST GLOMERULAR FILTRATION RATE > 60.0 ML/MIN; Glucose 157 mg/dL (74-106); LIPASE 28 U/L (23-300); Potassium 4.1 mmol/L (3.5-5.1); SGOT/AST 20 U/L (14-36); SGPT/ALT 13 U/L (0-35); SODIUM 136 mmol/L (137-145); Total Protein 6.3 g/dL (6.3-8.2)
[2021-04-02 15:05] LABS: Appearance SLIGHTLY CLOUDY (CLEAR); Bilirubin NEGATIVE (NEGATIVE); Blood NEGATIVE Ery/ul (0-5); Glucose NEGATIVE (NEGATIVE); Hyaline Casts 0-2 /LPF (0-2); Ketones TRACE (NEGATIVE); Leukocyte Esterase NEGATIVE (NEGATIVE); Mucus SLIGHT /HPF (NEGATIVE); Nitrite NEGATIVE (NEGATIVE); Protein,Urine Dip NEGATIVE (Negative); Specific Gravity 1.019 (1.005-1.025); Urobilinogen 2 mg/dL (0-1)
[2021-04-02 17:41] LABS: INFLUENZA A NEGATIVE (NEGATIVE); INFLUENZA B NEGATIVE (NEGATIVE); RESPIRATORY SYNCTIAL VIRUS NEGATIVE (Negative)
[2021-04-02 17:45] LABS: SARS-CoV-2 Xpert Express POSITIVE (NEGATIVE)
[2021-04-02] MEDS ORDERED: TYLENOL 325 MG PO PRN (18:20)
[2021-04-02] MEDS ORDERED: DUONEB 0.5-3 MG/3 ml Neb IH PRN (18:20)
[2021-04-02] MEDS ORDERED: FLAGYL 500 MG IVPB 500 MG/100 ML BAG IV STA (18:20)
[2021-04-02] MEDS ORDERED: Levofloxacin 500MG/100ML D5W 500 MG/100 ML BAG IV STA (18:20)
[2021-04-02] MEDS ORDERED: Zofran 4 MG/2 ML VIAL IV PRN (18:20)
--- NOTE | 2021-04-02 18:45 | XRAY ---
Indication: Abdomen pain. History diverticulitis. Multiple contiguous axial images obtained through the abdomen and pelvis using 80 cc Isovue 370 contrast. Comparison: April 27, 2019 Lung bases again demonstrates pulmonary emphysema, scattered fibrosis/scarring, and right lower lobe calcified granuloma. No infiltrate or effusion. Heart not enlarged. Again moderate sized hiatal hernia with partial intrathoracic stomach. Noncontrasted stomach and bowel loops nonobstructed. Appendectomy reported. Again sigmoid diverticulosis. Mid sigmoid colon now demonstrates moderate circumferential wall thickening with pericolonic stranding and intraluminal narrowing, possible diverticulitis. Sigmoid mass not completely excluded given the intraluminal narrowing and more proximal colonic distention. No free fluid/air. There has been interval cholecystectomy. Stable bilateral adrenal hypertrophy, chronic pancreatitis calcifications, and right renal cyst. Remaining liver, pancreas, spleen, adrenal glands, kidneys, ureters, bladder, and uterus are unremarkable. Again moderate scattered aortoiliac calcifications. No AAA or pathological retroperitoneal lymphadenopathy. Osseous structures intact with osteopenia, mild/moderate degenerative changes throughout the thoracolumbar spine, mild levoscoliosis, and remote T7-T9 compression fractures with 25-50% height loss. Impression: 1. Sigmoid bowel wall thickening with pericolonic stranding and intraluminal narrowing, possible diverticulitis. Sigmoid mass not completely excluded. 2. Again pulmonary emphysema, moderate sized hiatal hernia with partial intrathoracic stomach, bilateral adrenal hypertrophy, right renal cyst, arteriosclerotic disease, and chronic bony findings. Comment: Preliminary interpretation made by [facility]. No critical discrepancy.
[2021-04-02] MEDS ORDERED: Levofloxacin 500MG/100ML D5W 500 MG/100 ML BAG IV ONE (18:49)
[2021-04-02] MEDS ORDERED: HYDROCODONE-CHLORPHEN ER SUSP PO PRN (20:15)
[2021-04-02] MEDS ORDERED: xanAX 0.25 MG PO SCH (20:15)
[2021-04-02] MEDS ORDERED: TYLENOL EXTRA STRENGTH 500 MG PO PRN (20:15)
[2021-04-02] MEDS: Calcium 500MG W/Vit D Tablet PO SCH (21:12)
[2021-04-02] MEDS: Zestril 20 MG PO SCH (21:12)
[2021-04-02] MEDS: VENTOLIN COMMON CANISTER IH SCH (21:20)
[2021-04-02] MEDS: ADVAIR/WIXELLA 250-50 DISKUS 14 DOSE IH SCH (21:20)
[2021-04-02] MEDS ORDERED: VENTOLIN COMMON CANISTER IH PRN (22:13)
[2021-04-03] MEDS: FLAGYL 500 MG IVPB 500 MG/100 ML BAG IV SCH ×4 (02:31→21:32)
[2021-04-03] MEDS: MORPHINE SULFATE 2 MG INJ IV PRN ×2 (04:19→17:05)
[2021-04-03 07:03] LABS: Hematocrit 40.3 % (35-47); Hemoglobin 12.6 gm/dl (12.0-16.0); Mean Cell Volume 94.8 fl (78-100); Mean Corpuscular Hemoglobin 29.6 pg (26-32); Mean Corpuscular Hgb Concent. 31.3 g/dl (32-36); Mean Platelet Volume 10.1 fl (7.5-11.0); Platelet Count 210 K/mm3 (150-450); Red Blood Count 4.25 M/mm3 (4.1-5.4); White Blood Count 7.2 K/mm3 (4.0-10.5)
[2021-04-03] MEDS ORDERED: xanAX 0.25 MG PO PRN (07:28)
[2021-04-03 07:35] LABS: ALBUMIN 3.3 g/dL (3.5-5.0); ANION GAP 7.2 MEQ/L (5-15); BILIRUBIN,TOTAL 0.7 mg/dL (0.2-1.3); Calcium 8.7 mg/dL (8.4-10.2); Creatinine 1 1.02 mg/dL (0.52-1.04); EST GLOMERULAR FILTRATION RATE 55.4 ML/MIN; Potassium 3.9 mmol/L (3.5-5.1)
[2021-04-03] MEDS: ADVAIR/WIXELLA 250-50 DISKUS 14 DOSE IH SCH ×2 (08:26→19:05)
[2021-04-03] MEDS: Calcium 500MG W/Vit D Tablet PO SCH ×2 (09:09→21:38)
[2021-04-03] MEDS: Ecotrin 325 MG PO SCH (09:09)
[2021-04-03] MEDS: Singulair 10 MG PO SCH (09:10)
[2021-04-03] MEDS: Toprol-Xl 25MG Tablets PO SCH (09:10)
[2021-04-03] MEDS: Protonix 40MG Tablet PO SCH (09:12)
[2021-04-03] MEDS ORDERED: NON-FORMULARY ITEM (Omeprazole [Omeprazole] 40 MG Capsule.Dr) PO SCH (10:00)
[2021-04-03] MEDS ORDERED: VITAMIN D2 PO SCH (10:00)
[2021-04-03] MEDS ORDERED: Levofloxacin 500MG/100ML D5W 500 MG/100 ML BAG IV SCH (10:00)
[2021-04-03] MEDS ORDERED: PROTONIX 40 MG IV IV SCH (10:00)
[2021-04-03] MEDS ORDERED: MAALOX ES 30 ML UNIT DOSE PO PRN (10:25)
[2021-04-03] MEDS ORDERED: REMDESIVIR 200 MG in Sodium Chloride 0.9% 250 ML 250 ML IV ONE (11:00)
[2021-04-03] MEDS: OLUMIANT PO SCH (12:08)
[2021-04-03] MEDS: ENOXAPARIN SODIUM SQ SCH (12:08)
[2021-04-03] MEDS: VENTOLIN COMMON CANISTER IH SCH (19:05)
--- NOTE | 2021-04-03 19:26 | XRAY ---
Indication: Covid 19 pneumonia. Comparison: March 08, 2019. Portable chest less inflated with new mild bibasilar infiltrates versus atelectasis. Stable right base calcified granulomas. Heart not enlarged. Bony thorax intact again with mild osteopenia and degenerative changes. Comment: Preliminary interpretation made by [facility]. No critical discrepancy.
[2021-04-03] MEDS: Zestril 20 MG PO SCH (21:37)
[2021-04-03] MEDS: Zocor 10MG PO SCH (21:37)
[2021-04-03] MEDS ORDERED: NON-FORMULARY ITEM (Lovastatin [Lovastatin] 20 MG Tablet) PO SCH (22:00)
[2021-04-03] MEDS ORDERED: Levaquin 250MG/50ML D5W 250 MG/50 ML BAG IV SCH (22:00)
[2021-04-04] MEDS: FLAGYL 500 MG IVPB 500 MG/100 ML BAG IV SCH ×4 (02:41→21:30)
[2021-04-04] MEDS: MORPHINE SULFATE 2 MG INJ IV PRN ×3 (02:55→21:44)
[2021-04-04] MEDS: Sodium Chloride 0.9% 1000 ML 1,000 ML IV SCH (04:37)
[2021-04-04 05:04] LABS: Hemoglobin 11.9 gm/dl (12.0-16.0); Mean Cell Volume 95.7 fl (78-100); Mean Corpuscular Hgb Concent. 31.3 g/dl (32-36); Mean Platelet Volume 9.8 fl (7.5-11.0); Platelet Count 202 K/mm3 (150-450); Red Blood Count 3.97 M/mm3 (4.1-5.4); White Blood Count 5.4 K/mm3 (4.0-10.5)
[2021-04-04 05:23] LABS: ALBUMIN 3.1 g/dL (3.5-5.0); ALKALINE PHOSPHATASE 90 U/L (38-126); ANION GAP 5.9 MEQ/L (5-15); BLOOD UREA NITROGEN 15 mg/dL (7-17); CHLORIDE 105 mmol/L (98-107); Calcium 8.6 mg/dL (8.4-10.2); Carbon Dioxide 27 mmol/L (22-30); EST GLOMERULAR FILTRATION RATE > 60.0 ML/MIN; Glucose 119 mg/dL (74-106); Potassium 3.9 mmol/L (3.5-5.1); SGOT/AST 19 U/L (14-36); SGPT/ALT 11 U/L (0-35); SODIUM 134 mmol/L (137-145); Total Protein 5.6 g/dL (6.3-8.2)
[2021-04-04] MEDS: ADVAIR/WIXELLA 250-50 DISKUS 14 DOSE IH SCH ×2 (07:39→19:35)
[2021-04-04] MEDS: Ecotrin 325 MG PO SCH ×2 (09:15→09:16)
[2021-04-04] MEDS: Toprol-Xl 25MG Tablets PO SCH (09:16)
[2021-04-04] MEDS: Singulair 10 MG PO SCH (09:16)
[2021-04-04] MEDS: ENOXAPARIN SODIUM SQ SCH (09:16)
[2021-04-04] MEDS: OLUMIANT PO SCH (09:17)
[2021-04-04] MEDS: Protonix 40MG Tablet PO SCH (09:17)
[2021-04-04] MEDS ORDERED: SENOKOT 8.6 MG PO SCH (10:00)
[2021-04-04] MEDS: REMDESIVIR 100 MG in Sodium Chloride 0.9% 100 ML BAG 100 ML IV SCH (10:12)
[2021-04-04] MEDS: Calcium 500MG W/Vit D Tablet PO SCH ×2 (10:14→21:32)
--- NOTE | 2021-04-04 11:18 | HP ---
CHIEF COMPLAINT: Mid and left lower quadrant abdominal pain for three days. HISTORY OF PRESENT ILLNESS: The patient has had sharp and dull ache in the left lower quadrant and in the upper abdomen. She has had a cholecystectomy in the past. She has had diverticulitis in the past. She thinks it is her diverticulitis. No change in diet. Her gallbladder has been removed. No colon surgery. She denies any increasing shortness of breath. She states she has chronic obstructive pulmonary disease, does not use oxygen at home. No cough. No fever. Except for her abdomen she states she feels pretty good. However in the emergency room, her COVID turned positive. She has had three COVID vaccines. She felt like she has had no symptoms typical for COVID. She has not been with anyone who has had COVID that she knows of. VACCINATIONS: Three COVID vaccines, influenza vaccine. MEDICATIONS: Albuterol 2 puffs every 4 hours PRN, lisinopril 20 q.d., lovastatin 20 q.d., aspirin 325 q.d., calcium with vitamin D 1 b.i.d., Xanax 0.25 q.d. PRN, Trelegy 100-62.5-25 one puff q.d., metoprolol 25 q.d., Singulair 10 mg q.d., Prilosec 40 q.d. ALLERGIES: METFORMIN. PAST MEDICAL HISTORY: Other medical problems: Hypertension, history of colitis, chronic obstructive pulmonary disease with 80 pack years in, not smoking now. Occasional anxiety which she takes Xanax. Hypertension. REVIEW OF SYSTEMS: CONSTITUTIONAL: None. HEENT: The patient's taste is normal. Hears okay. CVS: She said she had some chest heaviness that has been evaluated and was told she had a cardiac mass but nothing surgically was indicated. She just had a cardiac calcium done last week. She does not know the results so far. MUSCULOSKELETAL: Patient with knee and joint pain nothing chronic or severe. ENDOCRINE: No symptoms. She is hypocalcemic and osteoporitic with a history of compression fracture. PHYSICAL EXAMINATION: The patient is a very alert, orientated, laughs easy and seems to be in no distress this evening at 1930 hours. VITAL SIGNS: O2 on room air I think it looks like 93%. Blood pressure 140/70, pulse 80, respirations 20. HEENT: Pupils equal and reactive to light. NECK: Supple without adenopathy. CHEST: Clear. CVS: No murmurs or gallops. ABDOMEN: Soft. No masses or organomegaly. Her abdomen is tender mid abdomen and left lower quadrant. EXTREMITIES: Good color. No edema. LAB DATA AND TESTS: White count 8.3. Electrolytes are normal. Liver enzymes are normal. Alkaline phosphatase, lipase normal. UA is normal. IMPRESSION: The patient was treated with some morphine IV. She did desaturate in the upper 80's and was placed on 2 liters. It did stop her pain. She was placed on the floor for treatment of diverticulitis, observed for COVID. At this time she does not need any COVID medications I feel as there are no pulmonary or really symptoms typical for COVID. She needs to be placed on dual antibiotic therapy for diverticulitis, colitis. PROGNOSIS: Good.
[2021-04-04] MEDS: Levofloxacin 250MG Tablet PO SCH (11:48)
[2021-04-04] MEDS: VENTOLIN COMMON CANISTER IH SCH (19:35)
[2021-04-04] MEDS: Zestril 20 MG PO SCH (21:32)
[2021-04-04] MEDS: Zocor 10MG PO SCH (21:32)
[2021-04-04] MEDS ORDERED: Zestril 20 MG PO ONE (22:00)
[2021-04-05] MEDS: FLAGYL 500 MG IVPB 500 MG/100 ML BAG IV SCH (02:39)
[2021-04-05] MEDS: Sodium Chloride 0.9% 1000 ML 1,000 ML IV SCH ×2 (03:23→22:52)
[2021-04-05] MEDS: MORPHINE SULFATE 2 MG INJ IV PRN ×4 (03:29→21:13)
[2021-04-05 05:08] LABS: Absolute Neutrophil Ct (ANC) 3.42 (1.4-6.9); Basophil (Absolute #) 0.02 (0-0.4); Eosinophil % 4.8 % (0.00-5.0); Eosinophil (Absolute #) 0.32 (0-0.5); Hematocrit 38.5 % (35-47); Lymphocyte (Absolute #) 2.08 (1.0-4.6); Lymphocytes % 31.2 % (24.0-44.0); Mean Cell Volume 95.3 fl (78-100); Mean Corpuscular Hemoglobin 29.7 pg (26-32); Mean Corpuscular Hgb Concent. 31.2 g/dl (32-36); Mean Platelet Volume 9.7 fl (7.5-11.0); Monocyte (Absolute #) 0.83 (0.0-1.3); Monocytes % 12.4 % (0.0-12.0); Neutrophil % 51.3 % (36.0-66.0); Platelet Count 210 K/mm3 (150-450); Red Blood Count 4.04 M/mm3 (4.1-5.4); White Blood Count 6.7 K/mm3 (4.0-10.5)
[2021-04-05 05:34] LABS: ALBUMIN 3.2 g/dL (3.5-5.0); ALKALINE PHOSPHATASE 86 U/L (38-126); ANION GAP 7.2 MEQ/L (5-15); BLOOD UREA NITROGEN 15 mg/dL (7-17); CHLORIDE 102 mmol/L (98-107); Calcium 8.8 mg/dL (8.4-10.2); Carbon Dioxide 28 mmol/L (22-30); Creatinine 1 0.84 mg/dL (0.52-1.04); EST GLOMERULAR FILTRATION RATE > 60.0 ML/MIN; Glucose 144 mg/dL (74-106); Potassium 3.9 mmol/L (3.5-5.1); SGOT/AST 22 U/L (14-36); SGPT/ALT 12 U/L (0-35); SODIUM 133 mmol/L (137-145); Total Protein 5.7 g/dL (6.3-8.2)
[2021-04-05] MEDS: ADVAIR/WIXELLA 250-50 DISKUS 14 DOSE IH SCH ×2 (07:29→19:40)
[2021-04-05] MEDS: SENOKOT 8.6 MG PO SCH (11:13)
[2021-04-05] MEDS: OLUMIANT PO SCH ×2 (11:14→11:15)
[2021-04-05] MEDS: Protonix 40MG Tablet PO SCH (11:14)
[2021-04-05] MEDS: ENOXAPARIN SODIUM SQ SCH (11:15)
[2021-04-05] MEDS: Calcium 500MG W/Vit D Tablet PO SCH ×2 (11:16→21:13)
[2021-04-05] MEDS: REMDESIVIR 100 MG in Sodium Chloride 0.9% 100 ML BAG 100 ML IV SCH (11:17)
[2021-04-05] MEDS: Levofloxacin 250MG Tablet PO SCH (11:17)
[2021-04-05] MEDS: Singulair 10 MG PO SCH (11:17)
[2021-04-05] MEDS: Toprol-Xl 25MG Tablets PO SCH (11:18)
[2021-04-05] MEDS: Flagyl 500 MG PO SCH ×2 (13:20→21:13)
[2021-04-05] MEDS: VENTOLIN COMMON CANISTER IH SCH (19:40)
[2021-04-05] MEDS: Zocor 10MG PO SCH (21:13)
[2021-04-05] MEDS: Zestril 20 MG PO SCH (21:13)
[2021-04-06 05:35] LABS: Absolute Neutrophil Ct (ANC) 4.02 (1.4-6.9); Basophil (Absolute #) 0.02 (0-0.4); Eosinophil % 3.8 % (0.00-5.0); Eosinophil (Absolute #) 0.27 (0-0.5); Hematocrit 37.5 % (35-47); Hemoglobin 11.9 gm/dl (12.0-16.0); Lymphocyte (Absolute #) 1.97 (1.0-4.6); Lymphocytes % 27.8 % (24.0-44.0); Mean Cell Volume 94.7 fl (78-100); Mean Corpuscular Hemoglobin 30.1 pg (26-32); Mean Corpuscular Hgb Concent. 31.7 g/dl (32-36); Mean Platelet Volume 10.2 fl (7.5-11.0); Monocytes % 11.3 % (0.0-12.0); Neutrophil % 56.8 % (36.0-66.0); Platelet Count 213 K/mm3 (150-450); Red Blood Count 3.96 M/mm3 (4.1-5.4); Red Cell Distribution Width 12.9 % (11.5-14.0); White Blood Count 7.1 K/mm3 (4.0-10.5)
[2021-04-06] MEDS: Flagyl 500 MG PO SCH ×3 (06:03→21:23)
[2021-04-06 06:38] LABS: ALBUMIN 3.3 g/dL (3.5-5.0); ALKALINE PHOSPHATASE 89 U/L (38-126); ANION GAP 8.9 MEQ/L (5-15); BLOOD UREA NITROGEN 15 mg/dL (7-17); CHLORIDE 99 mmol/L (98-107); Calcium 8.8 mg/dL (8.4-10.2); Carbon Dioxide 30 mmol/L (22-30); Creatinine 1 0.92 mg/dL (0.52-1.04); EST GLOMERULAR FILTRATION RATE > 60.0 ML/MIN; Glucose 131 mg/dL (74-106); Potassium 3.8 mmol/L (3.5-5.1); SGOT/AST 32 U/L (14-36); SGPT/ALT 16 U/L (0-35); SODIUM 134 mmol/L (137-145); Total Protein 5.8 g/dL (6.3-8.2)
[2021-04-06] MEDS: ADVAIR/WIXELLA 250-50 DISKUS 14 DOSE IH SCH ×2 (07:20→19:20)
[2021-04-06] MEDS: Ecotrin 325 MG PO SCH (09:30)
[2021-04-06] MEDS: Calcium 500MG W/Vit D Tablet PO SCH ×2 (09:30→21:23)
[2021-04-06] MEDS: Singulair 10 MG PO SCH (09:30)
[2021-04-06] MEDS: SENOKOT 8.6 MG PO SCH (09:30)
[2021-04-06] MEDS: Protonix 40MG Tablet PO SCH (09:30)
[2021-04-06] MEDS: OLUMIANT PO SCH (09:30)
[2021-04-06] MEDS: Toprol-Xl 25MG Tablets PO SCH (09:30)
[2021-04-06] MEDS: Levofloxacin 250MG Tablet PO SCH (09:30)
[2021-04-06] MEDS: ENOXAPARIN SODIUM SQ SCH (09:31)
[2021-04-06] MEDS: REMDESIVIR 100 MG in Sodium Chloride 0.9% 100 ML BAG 100 ML IV SCH (09:31)
[2021-04-06] MEDS: MORPHINE SULFATE 2 MG INJ IV PRN (09:45)
[2021-04-06] MEDS: VENTOLIN COMMON CANISTER IH SCH (19:20)
[2021-04-06] MEDS: Sodium Chloride 0.9% 1000 ML 1,000 ML IV SCH (20:13)
[2021-04-06] MEDS: Zestril 20 MG PO SCH (21:23)
[2021-04-06] MEDS: Zocor 10MG PO SCH (21:23)
[2021-04-07 05:54] LABS: Absolute Neutrophil Ct (ANC) 3.13 (1.4-6.9); Basophil (Absolute #) 0.01 (0-0.4); Eosinophil % 4.5 % (0.00-5.0); Eosinophil (Absolute #) 0.26 (0-0.5); Hematocrit 41.2 % (35-47); Hemoglobin 13.2 gm/dl (12.0-16.0); Lymphocyte (Absolute #) 1.61 (1.0-4.6); Mean Cell Volume 94.1 fl (78-100); Mean Corpuscular Hemoglobin 30.1 pg (26-32); Mean Platelet Volume 10.1 fl (7.5-11.0); Monocyte (Absolute #) 0.75 (0.0-1.3); Neutrophil % 54.3 % (36.0-66.0); Platelet Count 238 K/mm3 (150-450); Red Blood Count 4.38 M/mm3 (4.1-5.4); White Blood Count 5.8 K/mm3 (4.0-10.5)
[2021-04-07] MEDS: Flagyl 500 MG PO SCH (06:37)
[2021-04-07] MEDS: ADVAIR/WIXELLA 250-50 DISKUS 14 DOSE IH SCH (07:05)
[2021-04-07] MEDS: Ecotrin 325 MG PO SCH (09:48)
[2021-04-07] MEDS: Calcium 500MG W/Vit D Tablet PO SCH (09:48)
[2021-04-07] MEDS: ENOXAPARIN SODIUM SQ SCH (09:48)
[2021-04-07] MEDS: Levofloxacin 250MG Tablet PO SCH (09:49)
[2021-04-07] MEDS: Protonix 40MG Tablet PO SCH (09:49)
[2021-04-07] MEDS: SENOKOT 8.6 MG PO SCH (09:49)
[2021-04-07] MEDS: OLUMIANT PO SCH (09:49)
[2021-04-07] MEDS: Singulair 10 MG PO SCH (09:49)
[2021-04-07] MEDS: Toprol-Xl 25MG Tablets PO SCH (09:50)
[2021-04-07] MEDS: REMDESIVIR 100 MG in Sodium Chloride 0.9% 100 ML BAG 100 ML IV SCH (09:55)
[2021-04-07] MEDS ORDERED: Zestril 20 MG PO SCH (11:27)
[2021-04-07 12:10] VITALS: PULSE 69; O2SAT 93
[2021-04-07 14:23] VITALS: BP 162/86
--- NOTE | 2021-04-08 09:28 | DS ---
DISCHARGE DIAGNOSES: 1) DIVERTICULITIS. 2) HISTORY OF COVID. 3) HYPERTENSION. HOSPITAL COURSE: The patient had sharp left lower quadrant and mid area pain for several days, constipation. Her COVID test was still positive however it has been several weeks since she had COVID. White count was 7,000. CT scan showed some thickening in the wall of the left colon. White count remained normal. Her pain gradually resolved. As we finally got her bowels moving the day before discharge on Fleet's enema and some Senokot. Her glucose was 131 on 04/06/2021. She is feeling well. She said her strength is back, still worried about the pain. She had a colonoscope in the past. She had some bleeding on the second day but it never came back and the colonoscope was not too long ago. DISPOSITION: The patient is discharged on her home medications except for lisinopril will be increased to 40 as her blood pressure ran a little bit high here. She was placed Cipro 250 b.i.d. for ten days. She has no taste secondary to the COVID from several week ago. I asked her to try to use hot sauce and salad dressings on her foods. She has not lost any weight. If her pain persists would recommend a colonoscope. However, outpatient is closed except for emergencies and she is stable and can go home and I probably think that this will go away. I do not think it was probably related to COVID as we had x-ray findings and she had this before COVID so really she should not be infectious. Chest x-ray did show some basilar infiltrates which were perhaps new on admission. However, she never had any cough and no hypoxia. CT scan showed sigmoid bowel wall thickening, pericolonic stranding and intraluminal narrowing possibly diverticulitis, sigmoid mass not completely excluded however she did have a colonoscope she states lately. She was on Lovenox that was discontinued. Follow up with her physician in two weeks. PROGNOSIS: Good.
== END 2021-04-07 14:12 | disposition home or self-care (01) ==
LOC: ED 13:29 → MED SURG 18:05
PROVIDERS: ADMIT Family Medicine; ATTEND Family Medicine
DX: K57.32 Diverticulitis of large intestine without perforation or abscess without bleeding (principal); Z86.16 Personal history of COVID-19; I10 Essential (primary) hypertension; K59.00 Constipation, unspecified; E78.00 Pure hypercholesterolemia, unspecified; J44.9 Chronic obstructive pulmonary disease, unspecified; Z79.899 Other long term (current) drug therapy; Z87.891 Personal history of nicotine dependence
CPT/HCPCS: 0241U; 36000; 36415; 71045; 74177; 80053; 81001; 83605; 83690; 85025; 85027; 85379; 93268; 94640; 94762; 96374; 99285; G0378; J1650; J1956; J2270; J2405; J3490; A9270-GY; J0248

== ENCOUNTER 2023-07-13 10:26 | Observation (INO) | payer MEDICARE ==
--- NOTE | 2023-07-13 11:43 | ERPHSYRPT ---
- History of Present Illness Time Seen by Provider: 07/13/23 11:32 Historian: patient, family (daughter) Exam Limitations: no limitations Patient Subjective Stated Complaint: C/O abdominal pain for approx 10-14 days. States her entire abdomen hurts. Pain is constant. States nauseated with no vomiting. Triage Nursing Assessment: Patient ambulated back to ER with a slow gait. She is alert and oriented; slightly hard of hearing. Patient wearing 02 per N/C upon arrival at 3L; patient wears this continuously at home, not new for patient. SIM WNL. Patient pale. Abdomen is tender. Pain is not isolated to her abdomen; indicates her entire body hurts. Physician History: For the past 2 weeks pt has had constant generalized abdominal pain with nausea; LBM was yesterday & wnl; denies chest pain & fever. Allergies/Adverse Reactions: metformin Adverse Reaction (Verified 07/13/23 11:00) Sick to stomach, headache Home Medications: Albuterol 2.5 mg/3 ml Neb [Proventil 2.5 mg/3 ml Neb] 2.5 mg IH BID 03/08/19 [History] Albuterol 8 gm Mdi Hfa [Ventolin Hfa MDI] 8 gm IH QIDPRN PRN 03/08/19 [History] Lovastatin 20 mg PO HS 03/21/19 [History] Aspirin EC 325 mg [Ecotrin 325 MG] 325 mg PO DAILY 03/22/19 [History] Calcium Carbonate/Vitamin D3 [Calcium 600 + Vit D Caplet] 1 each PO BID 08/22/19 [History] ALPRAZolam 0.25 MG [xanAX 0.25 MG] 0.25 mg PO DAILY 04/02/21 [History] Fluticasone/Umeclidin/Vilanter [Trelegy Ellipta 100-62.5-25] 1 inh PO UD 04/02/21 [History] Metoprolol Succinate 25 mg Xl* [Toprol-Xl 25MG Tablets] 25 mg PO BID 04/02/21 [History] Montelukast Sodium 10 mg [Singulair 10 MG] 10 mg PO DAILY 04/02/21 [History] Omeprazole 40 mg PO DAILY 04/02/21 [History] Hx Tetanus, Diphtheria Vaccination/Date Given: Yes Hx Influenza Vaccination/Date Given: Yes Hx Pneumococcal Vaccination/Date Given: Yes Immunizations Up to Date: Yes Travel Risk - International Travel Have you traveled outside of the country in past 3 weeks: No - Emerging Infectious Disease Are you exhibiting symptoms associated with any current EIDs: Yes Symptoms: Abdominal Pain, Headaches/Body Aches/ - Review of Systems Constitutional: No Fever Cardiac: No Chest Pain Abdominal/Gastrointestinal: Abdominal Pain, Nausea - Past Medical History Pertinent Past Medical History: Yes Neurological History: No Pertinent History ENT History: No Pertinent History Cardiac History: High Cholesterol, Hypertension Respiratory History: COPD, Other Endocrine Medical History: Diabetes Type II, Other Musculoskeletal History: Arthritis, Osteoporosis GI Medical History: Diverticulitis, GERD, Gallbladder Disease History: No Pertinent History Psycho-Social History: No Pertinent History Female Reproductive Disorders: No Pertinent History Other Medical History: seasonal allergies, Post Covid April 2020 - Past Surgical History Past Surgical History: Yes Neuro Surgical History: No Pertinent History Cardiac: No Pertinent History Respiratory: No Pertinent History Gastrointestinal: Appendectomy, Cholecystectomy, Other Genitourinary: No Pertinent History Musculoskeletal: No Pertinent History Female Surgical History: No Pertinent History Other Surgical History: diagnostic open abdominal, ankle fx and surgery - Social History Smoking Status: Former smoker How long have you smoked: 65 years Exposure to second hand smoke: No Drug Use: none Patient Lives Alone: No - Nursing Vital Signs Nursing Vital Signs: Initial Vital Signs Temperature 99.4 F 07/13/23 10:50 Pulse Rate 97 H 07/13/23 10:50 Respiratory Rate 23 07/13/23 10:50 Blood Pressure 112/64 07/13/23 10:50 O2 Sat by Pulse Oximetry 96 07/13/23 10:50 Pain Scale Pain Intensity 5 - Physical Exam General Appearance: alert Eye Exam: eyes nml inspection Ears, Nose, Throat Exam: pharynx normal, TM abnormal (R) (erythematous) Neck Exam: normal inspection Respiratory Exam: lungs clear Cardiovascular Exam: normal heart sounds Gastrointestinal/Abdomen Exam: soft, No normal bowel sounds (B.S. mildly hyperactive and normotonic) Extremity Exam: No pedal edema Neurologic Exam: alert, cooperative Skin Exam: warm, dry SpO2 Interpretation: normal SpO2: 96 O2 Delivery: Room Air - Course Nursing assessment & vital signs reviewed: Yes - CT Exams Abdomen/Pelvis CT Interpretation: Tele-radiologist Report (Multiple distal descending and sigmoid colonic diverticula with evidence of mucosal thickening and mild adjacent fat stranding in the region of sigmoid colon. Possibility of developing diverticulitis cannot be entirely excluded. See rest of report.) Ordered Tests: Active Orders 24 hr Category Date Time Status IV Insertion STAT Care 07/13/23 11:41 Active ABDOMEN AND PELVIS W/0 CONTRAS [CT] Stat Exams 07/13/23 11:41 Completed AMYLASE Stat Lab 07/13/23 11:50 Completed CBC W DIFF Stat Lab 07/13/23 11:50 Completed CMP Stat Lab 07/13/23 11:50 Completed CULTURE,URINE Stat Lab 07/13/23 Received LIPASE Stat Lab 07/13/23 11:50 Completed UA W/RFX UR CULTURE Stat Lab 07/13/23 Completed Transfer Order Routine Transfer 07/13/23 Ordered Medication Summary Generic Name Dose Route Start Last Admin Trade Name Freq PRN Reason Stop Dose Admin Sodium Chloride 1,000 mls @ 100 mls/hr 07/13/23 11:45 07/13/23 12:23 Sodium Chloride 0.9% 1000 Ml IV 08/12/23 11:44 100 mls/hr .Q10H JANNETH Administration Piperacillin Sod/Tazobactam 100 mls @ 200 mls/hr 07/13/23 13:35 07/13/23 13:43 Sod 3.375 gm/ Sodium Chloride IV 07/13/23 14:04 200 mls/hr STAT ONE Administration Discontinued Medications Generic Name Dose Route Start Last Admin Trade Name Freq PRN Reason Stop Dose Admin Sodium Chloride Confirm 07/13/23 13:38 Sodium Chloride 100ml Mini-Bag Plus Administered 07/13/23 13:39 Dose 100 mls @ ud IV .STK-MED ONE Morphine Sulfate 2 mg 07/13/23 11:41 07/13/23 12:24 Morphine Sulfate 2 Mg/Ml Inj IV 07/13/23 11:42 2 mg STAT ONE Administration Morphine Sulfate Confirm 07/13/23 12:21 Morphine Sulfate 2 Mg/Ml Inj Administered 07/13/23 12:22 Dose 2 mg .ROUTE .STK-MED ONE Ondansetron HCl 4 mg 07/13/23 11:41 07/13/23 12:24 Ondansetron Hcl 4 Mg/2 Ml Vial IV 07/13/23 11:42 4 mg STAT ONE Administration Ondansetron HCl Confirm 07/13/23 12:21 Ondansetron Hcl 4 Mg/2 Ml Vial Administered 07/13/23 12:22 Dose 4 mg .ROUTE .STK-MED ONE Piperacillin Sod/Tazobactam Sod Confirm 07/13/23 13:38 Piperacillin/Tazobactam Sodium 3.375 Gm Vial Administered 07/13/23 13:39 Dose 3.375 gm IV .STK-MED ONE Lab/Rad Data: Laboratory Result Diagrams 07/13/23 11:50 07/13/23 11:50 Laboratory Results 07/13/23 07/13/23 07/13/23 Range/Units Unknown 11:53 11:53 WBC (4.0-10.5) x10^3/uL RBC (4.1-5.4) x10^6/uL Hgb (12.0-16.0) g/dL Hct (35-47) % MCV (78-100) fL MCH (26-32) pg MCHC (32-36) g/dL RDW (11.5-14.0) % Plt Count (150-450) x10^3/uL MPV (7.5-11.0) fL Gran % (36.0-66.0) % Immature Gran % (Auto) (0.00-0.4) % Nucleat RBC Rel Count (0.00-0.1) % Eos # (Auto) (0-0.5) x10^3/uL Immature Gran # (Auto) (0.00-0.03) x10^3u/L Absolute Lymphs (auto) (1.0-4.6) x10^3/uL Absolute Monos (auto) (0.0-1.3) x10^3/uL Absolute Nucleated RBC (0.00-0.01) x10^3u/L Lymphocytes % (24.0-44.0) % Monocytes % (0.0-12.0) % Eosinophils % (0.00-5.0) % Basophils % (0.0-0.4) % Absolute Granulocytes (1.4-6.9) x10^3/uL Basophils # (0-0.4) x10^3/uL Sodium (135-145) mmol/L Potassium (3.5-5.1) mmol/L Chloride (98-107) mmol/L Carbon Dioxide (22-30) mmol/L Anion Gap (5-15) MEQ/L BUN (7-17) mg/dL Creatinine (0.52-1.04) mg/dL Estimated GFR ML/MIN Glucose (74-106) mg/dL Calcium (8.4-10.2) mg/dL Total Bilirubin (0.2-1.3) mg/dL AST (14-36) U/L ALT (0-35) U/L Alkaline Phosphatase (38-126) U/L Serum Total Protein (6.3-8.2) g/dL Albumin (3.5-5.0) g/dL Amylase (30-110) U/L Lipase (23-300) U/L Urine Color Yellow (Yellow) Urine Appearance Cloudy A (Clear) Urine pH 5.5 (4.6-8.0) Ur Specific [place] >=1.030 A (1.005-1.030) Urine Protein Negative (Negative) Urine Glucose (UA) >=1000 A (Negative) mg/dL Urine Ketones Trace A (Negative) Urine Blood Negative (Negative) Urine Nitrite Negative (Negative) Urine Bilirubin Negative (Negative) Urine Urobilinogen 1.0 A (0.2) mg/dL Ur Leukocyte Esterase Negative (Negative) U Hyaline Cast (Auto) NONE SEEN (0-2) /LPF Urine Microscopic RBC 0-2 (0-5) /HPF Urine Microscopic WBC 6-10 A (0-5) /HPF Ur Epithelial Cells Many A (None Seen) /HPF Urine Bacteria Few A (None Seen) /HPF Urine Culture Reflexed YES (NO) Influenza Type A Ag NEGATIVE (NEGATIVE) Influenza Type B Ag NEGATIVE (NEGATIVE) RSV (PCR) NEGATIVE (NEGATIVE) SARS-CoV-2 (PCR) NEGATIVE (NEGATIVE) Group A Strep Antibody NOT DETECTED (NEGATIVE) 07/13/23 07/13/23 Range/Units 11:50 11:50 WBC 13.8 H (4.0-10.5) x10^3/uL RBC 4.67 (4.1-5.4) x10^6/uL Hgb 13.7 (12.0-16.0) g/dL Hct 42.8 (35-47) % MCV 91.6 (78-100) fL MCH 29.3 (26-32) pg MCHC 32.0 (32-36) g/dL RDW 13.2 (11.5-14.0) % Plt Count 255 (150-450) x10^3/uL MPV 9.8 (7.5-11.0) fL Gran % 85.8 H (36.0-66.0) % Immature Gran % (Auto) 0.6 H (0.00-0.4) % Nucleat RBC Rel Count 0.0 (0.00-0.1) % Eos # (Auto) 0.13 (0-0.5) x10^3/uL Immature Gran # (Auto) 0.08 H (0.00-0.03) x10^3u/L Absolute Lymphs (auto) 0.80 L (1.0-4.6) x10^3/uL Absolute Monos (auto) 0.93 (0.0-1.3) x10^3/uL Absolute Nucleated RBC 0.00 (0.00-0.01) x10^3u/L Lymphocytes % 5.8 L (24.0-44.0) % Monocytes % 6.8 (0.0-12.0) % Eosinophils % 0.9 (0.00-5.0) % Basophils % 0.1 (0.0-0.4) % Absolute Granulocytes 11.81 H (1.4-6.9) x10^3/uL Basophils # 0.02 (0-0.4) x10^3/uL Sodium 139 (135-145) mmol/L Potassium 3.9 (3.5-5.1) mmol/L Chloride 102 (98-107) mmol/L Carbon Dioxide 30 (22-30) mmol/L Anion Gap 10.8 (5-15) MEQ/L BUN 18 H (7-17) mg/dL Creatinine 0.89 (0.52-1.04) mg/dL Estimated GFR 64.7 ML/MIN Glucose 146 H (74-106) mg/dL Calcium 9.4 (8.4-10.2) mg/dL Total Bilirubin 0.60 (0.2-1.3) mg/dL AST 22 (14-36) U/L ALT 16 (0-35) U/L Alkaline Phosphatase 83 (38-126) U/L Serum Total Protein 6.9 (6.3-8.2) g/dL Albumin 4.0 (3.5-5.0) g/dL Amylase 58 (30-110) U/L Lipase 38 (23-300) U/L Urine Color (Yellow) Urine Appearance (Clear) Urine pH (4.6-8.0) Ur Specific [place] (1.005-1.030) Urine Protein (Negative) Urine Glucose (UA) (Negative) mg/dL Urine Ketones (Negative) Urine Blood (Negative) Urine Nitrite (Negative) Urine Bilirubin (Negative) Urine Urobilinogen (0.2) mg/dL Ur Leukocyte Esterase (Negative) U Hyaline Cast (Auto) (0-2) /LPF Urine Microscopic RBC (0-5) /HPF Urine Microscopic WBC (0-5) /HPF Ur Epithelial Cells (None Seen) /HPF Urine Bacteria (None Seen) /HPF Urine Culture Reflexed (NO) Influenza Type A Ag (NEGATIVE) Influenza Type B Ag (NEGATIVE) RSV (PCR) (NEGATIVE) SARS-CoV-2 (PCR) (NEGATIVE) Group A Strep Antibody (NEGATIVE) - Progress Progress: unchanged Discussed with : Yanique (Spoke with & discussed pt with Dr. Lang([id number]) - obs) Counseled pt/family regarding: lab results, diagnosis, rad results Medical Desision Making - Diagnostic Testing Diagnostic test were ordered, analyzed, and reviewed by me: Yes Radiological Interpretation: Teleradiologist Report - Departure Departure Disposition: Observation Clinical Impression: Diverticulitis, Abdominal pain, UTI (urinary tract infection) Condition: Stable Critical Care Time: No Referrals: KELLY RAMOS DO [Primary Care Provider] - Follow up/PCP as directed
[2023-07-13 11:56] LABS: Absolute Neutrophil Ct (ANC) 11.81 x10^3/uL (1.4-6.9); BASOPHIL % 0.1 % (0.0-0.4); Basophil (Absolute #) 0.02 x10^3/uL (0-0.4); Eosinophil % 0.9 % (0.00-5.0); Eosinophil (Absolute #) 0.13 x10^3/uL (0-0.5); Hematocrit 42.8 % (35-47); Hemoglobin 13.7 g/dL (12.0-16.0); IMMATURE GRAN # 0.08 x10^3u/L (0.00-0.03); IMMATURE GRAN % 0.6 % (0.00-0.4); Lymphocytes % 5.8 % (24.0-44.0); Mean Cell Volume 91.6 fL (78-100); Mean Corpuscular Hemoglobin 29.3 pg (26-32); Mean Platelet Volume 9.8 fL (7.5-11.0); Monocyte (Absolute #) 0.93 x10^3/uL (0.0-1.3); Monocytes % 6.8 % (0.0-12.0); Neutrophil % 85.8 % (36.0-66.0); Platelet Count 255 x10^3/uL (150-450); Red Blood Count 4.67 x10^6/uL (4.1-5.4); Red Cell Distribution Width 13.2 % (11.5-14.0); White Blood Count 13.8 x10^3/uL (4.0-10.5)
[2023-07-13 12:10] LABS: ANION GAP 10.8 MEQ/L (5-15); BILIRUBIN,TOTAL 0.6 mg/dL (0.2-1.3); Calcium 9.4 mg/dL (8.4-10.2); Creatinine 1 0.89 mg/dL (0.52-1.04); EST GLOMERULAR FILTRATION RATE 64.7 ML/MIN; Potassium 3.9 mmol/L (3.5-5.1); Total Protein 6.9 g/dL (6.3-8.2)
[2023-07-13] MEDS ORDERED: Zofran 4 MG/2 ML VIAL ONE (12:21)
[2023-07-13] MEDS ORDERED: MORPHINE SULFATE 2 MG INJ ONE (12:21)
[2023-07-13] MEDS: Sodium Chloride 0.9% 1000 ML 1,000 ML IV SCH ×2 (12:23→15:58)
[2023-07-13] MEDS: Zofran 4 MG/2 ML VIAL IV ONE (12:24)
[2023-07-13] MEDS: MORPHINE SULFATE 2 MG INJ IV ONE (12:24)
[2023-07-13 12:34] LABS: Appearance Cloudy (Clear); Bacteria Few /HPF (None Seen); Bilirubin Negative (Negative); Blood Negative (Negative); Epithelial Cells Many /HPF (None Seen); Glucose, Urine >=1000 mg/dL (Negative); Hyaline Casts NONE SEEN /LPF (0-2); Ketones Trace (Negative); Leukocyte Esterase Negative (Negative); Nitrite Negative (Negative); Ph 5.5 (4.6-8.0); Protein,Urine Dip Negative (Negative); RBC 0-2 /HPF (0-5); Specific Gravity >=1.030 (1.005-1.030)
[2023-07-13 12:35] LABS: INFLUENZA A NEGATIVE (NEGATIVE); INFLUENZA B NEGATIVE (NEGATIVE); RESPIRATORY SYNCTIAL VIRUS NEGATIVE (NEGATIVE); SARS-CoV-2 Xpert Express NEGATIVE (NEGATIVE)
[2023-07-13 12:36] LABS: ADD URINE CULTURE? YES (NO)
--- NOTE | 2023-07-13 13:24 | XRAY ---
CLINICAL HISTORY: pain COMPARISON: CT dated 04/02/2021. TECHNIQUE: Multiple axial slices with coronal and sagittal reconstructions from CT scan abdomen and pelvis without contrast were obtained and have been submitted for interpretation. One of the following dose reduction techniques was utilized for this exam: Automated exposure control, adjustment of the mA and/or kV according to patient size, and use of iterative reconstruction. FINDINGS: Visualized lung bases demonstrate centrilobular emphysematous and fibro-atelectatic changes, more marked on the left. A 0.7 cm calcified nodule is noted in the superior segment of right lung lower lobe. Cardiothoracic ratio is at the upper limits of normal. A well-defined mass of fat attenuation is noted between the atria causing mild extrinsic compression on the SVC confluence. Large size hiatal hernia with part of the stomach is seen herniating into the mediastinum is noted. Hepatomegaly, measuring 18.5 cm at the largest craniocaudal span in the right lobe. No definite focal lesion or intrahepatic biliary dilatation is noted. Surgical apolinar are noted within the gallbladder fossa, postcholecystectomy status. Spleen is normal in size and shape with few intraparenchymal calcified granulomas. No other definite focal lesion is identified. Pancreas demonstrates atrophic changes, likely age-related. No definite peripancreatic collection is noted. Adrenal glands appear mildly bulky, suggestion of small nodular outpouchings. Both kidneys are normal in size and shape. A 3.2 cm simple cyst is noted at the upper pole of right kidney. Few tiny 2-3 mm calculi are noted in both kidneys. No definite hydronephrosis or solid mass lesion is identified. Ureters appear unremarkable. Urinary bladder is under-distended. Pelvic viscera appear unremarkable. Small bowel loops are predominantly collapsed. Large bowel loops are gas and fecal filled. Multiple diverticula are noted in the distal descending and sigmoid colon with mucosal thickening and mild adjacent fat stranding noted in the region of sigmoid colon. Ileocecal junction is intact. Appendix is not optimally visualized and requires clinical correlation. No definite ascites or abdominal lymphadenopathy is noted. Marked atherosclerotic changes are noted in the visualized abdominal aorta and its major branches. Degenerative changes are noted in the visualized spine. Prominent Schmrl node noted at T9, associated with anterior wedging. Rest of the regional osseous structures and surrounding soft tissues are intact. IMPRESSION: Multiple distal descending and sigmoid colonic diverticula with evidence of mucosal thickening and mild adjacent fat stranding in the region of sigmoid colon. Possibility of developing diverticulitis cannot be entirely excluded. Clinical correlation is advised and follow-up scan may be considered. Centrilobular emphysematous and fibro-atelectatic changes noted in the visualized lung bases. Lipomatous hypertrophy of the interatrial septum is seen. Large size hiatal hernia noted. Simple right renal cyst and multiple tiny nonobstructive bilateral renal calculi noted. Prominent Schmrl node noted at T9, associated with anterior wedging. Further evaluation with MR recommended to evaluate crhonic vs. acute. Electronically Signed by: Jada Almanzar MD. 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 Electronically Signed by: Jada Almanzar MD. (07/13/2023 13:19:35 EDT)
[2023-07-13] MEDS ORDERED: Sodium Chloride 100ML MINI-BAG PLUS 100 ML IV ONE (13:38)
[2023-07-13] MEDS ORDERED: PIPERACILLIN/TAZOBACTAM IV ONE (13:38)
[2023-07-13] MEDS: PIPERACILLIN/TAZOBACTAM 3.375 GM in Sodium Chloride 100ML MINI-BAG PLUS 100 ML IV ONE (13:43)
[2023-07-13] MEDS ORDERED: MORPHINE SULFATE 2 MG INJ IV PRN (14:10)
--- NOTE | 2023-07-13 15:05 | PCM.HP ---
History of Present Illness - Chief Complaint Chief Complaint: Diverticulitis; Abdominal pain; UTI Date: 07/13/23 History of Present Illness: is a 83 year old female is PMHX of TANGIRNAQ, diverticulitis, GERD, HTN, hyperlipidemia, COPD, Type II DM, and OA. She wears oxygen at 3lNC at baseline. Pt came in the ER today for C/O abdominal pain for approx 10-14 days. States her entire abdomen hurts, and generalized body aches. Pain is constant. States + nausea with no vomiting. Generalized Abd tenderness with palpation, LBM was yesterday and normal. She denies chest pain and fever. Treated in ER with zosyn, IVF, zofran and morphine. Will continue with same plan of care for dx of diverticulitis as seen on CT scan of abd/pelvis. - Review of Systems Constitutional: No Fever, No Chills Eyes: No Symptoms Ears, Nose, & Throat: No Symptoms Respiratory: Short Of Breath, No Cough Cardiac: No Chest Pain, No Edema, No Syncope Abdominal/Gastrointestinal: Abdominal Pain, Nausea, No Vomiting, No Diarrhea Genitourinary Symptoms: No Dysuria Musculoskeletal: No Back Pain, No Neck Pain Skin: No Rash Neurological: No Dizziness, No Focal Weakness, No Sensory Changes Psychological: No Symptoms Endocrine: No Symptoms Hematologic/Lymphatic: No Symptoms Immunological/Allergic: No Symptoms Medications & Allergies Home Medications: Home Medication List Albuterol 2.5 mg/3 ml Neb [Proventil 2.5 mg/3 ml Neb] 2.5 mg IH BID 03/08/19 [History Confirmed 07/13/23] Albuterol 8 gm Mdi Hfa [Ventolin Hfa MDI] 8 gm IH QIDPRN PRN 03/08/19 [History Confirmed 07/13/23] Lovastatin 20 mg PO HS 03/21/19 [History Confirmed 07/13/23] Aspirin EC 325 mg [Ecotrin 325 MG] 325 mg PO DAILY 03/22/19 [History Confirmed 07/13/23] Calcium Carbonate/Vitamin D3 [Calcium 600 + Vit D Caplet] 1 each PO BID 08/22/19 [History Confirmed 07/13/23] Fluticasone/Umeclidin/Vilanter [Trelegy Ellipta 100-62.5-25] 1 inh PO DAILY 04/02/21 [History Confirmed 07/13/23] Metoprolol Succinate 25 mg Xl* [Toprol-Xl 25MG Tablets] 25 mg PO DAILY 04/02/21 [History Confirmed 07/13/23] Omeprazole 40 mg PO DAILY 04/02/21 [History Confirmed 07/13/23] Lisinopril 20 mg [Zestril 20 MG] 40 mg PO DAILY #30 tablet 04/07/21 [Rx Confirmed 07/13/23] Amlodipine Besylate 5 mg [Norvasc 5 mg] 5 mg PO DAILY 07/13/23 [History Confirmed 07/13/23] Empagliflozin [Jardiance] 25 mg PO DAILY 07/13/23 [History Confirmed 07/13/23] Semaglutide [Rybelsus] 7 mg PO DAILY 07/13/23 [History Confirmed 07/13/23] Allergies/Adverse Reactions: Allergies Allergy/AdvReac Type Severity Reaction Status Date / Time metformin AdvReac Verified 07/13/23 15:06 - Past Medical History Past Medical History: Yes Neurological History: No Pertinent History ENT History: No Pertinent History Cardiac History: High Cholesterol, Hypertension Respiratory History: COPD Endocrine Medical History: Diabetes Type II, Other Musculoskelatal History: Arthritis, Fractures, Osteoporosis GI Medical History: Diverticulitis, GERD, Gallbladder Disease History: No Pertinent History Pyscho-Social History: No Pertinent History Reproductive Disorders: No Pertinent History Comment: seasonal allergies, Post Covid April 2020, ankle fracture - Past Surgical History Past Surgical History: Yes Neuro Surgical History: No Pertinent History Cardiac History: No Pertinent History Respiratory Surgery: No Pertinent History GI Surgical History: Appendectomy, Cholecystectomy, Other Genitourinary Surgical Hx: No Pertinent History Musculskeletal Surgical Hx: No Pertinent History Female Surgical History: Other Other Surgical History: diagnostic open abdominal, ankle fx and surgery, partial hysterectomy - Social History Smoking Status: Former smoker How long have you smoked: 65 years Exposure to second hand smoke: No Alcohol: None Drug Use: none - Social Determinants of Health Will the patient participate in the screening: Yes Do you worry about a steady place to live?: No Do you have any problems with any of the following?: No known problems In the past 12 months,have you had to go without utilities?: No Have you or anyone in your house had to go without enough: No Transportation Issues: No Has anyone in your support network made you feel unsafe?: No - Physical Exam Vital Signs: Vital Signs - 24 hr Temp Pulse Resp BP BP Pulse Ox 07/13/23 14:10 98.6 F 96 H 20 142/70 91 L 07/13/23 13:44 96 07/13/23 13:30 70 19 105/53 95 07/13/23 13:00 90 25 H 110/56 95 07/13/23 12:31 94 H 18 120/52 95 07/13/23 12:04 98 H 21 124/67 96 07/13/23 11:31 120/65 07/13/23 11:07 104/68 07/13/23 10:50 99.4 F 97 H 23 112/64 96 General Appearance: no apparent distress, alert Neurologic Exam: alert, oriented x 3, cooperative, normal mood/affect, nml cerebellar function, nml station & gait, sensation nml, No motor deficits Eye Exam: PERRL/EOMI, eyes nml inspection Ears, Nose, Throat Exam: normal ENT inspection, TMs normal, pharynx normal, moist mucous membranes Neck Exam: normal inspection, non-tender, supple, full range of motion Respiratory Exam: normal breath sounds, lungs clear, No respiratory distress Cardiovascular Exam: regular rate/rhythm, normal heart sounds, normal peripheral pulses Gastrointestinal/Abdomen Exam: soft, normal bowel sounds, tenderness (generalized), No mass Back Exam: normal inspection, normal range of motion, No CVA tenderness, No vertebral tenderness Extremity Exam: normal inspection, normal range of motion, pelvis stable Skin Exam: normal color, warm, dry, No rash Lymphatic Exam: No adenopathy Results - Labs Lab/Micro Results: Lab Results-Last 24 Hours 07/13/23 07/13/23 07/13/23 Range/Units 11:50 11:50 11:53 WBC 13.8 H (4.0-10.5) x10^3/uL RBC 4.67 (4.1-5.4) x10^6/uL Hgb 13.7 (12.0-16.0) g/dL Hct 42.8 (35-47) % MCV 91.6 (78-100) fL MCH 29.3 (26-32) pg MCHC 32.0 (32-36) g/dL RDW 13.2 (11.5-14.0) % Plt Count 255 (150-450) x10^3/uL MPV 9.8 (7.5-11.0) fL Gran % 85.8 H (36.0-66.0) % Immature Gran % (Auto) 0.6 H (0.00-0.4) % Nucleat RBC Rel Count 0.0 (0.00-0.1) % Eos # (Auto) 0.13 (0-0.5) x10^3/uL Immature Gran # (Auto) 0.08 H (0.00-0.03) x10^3u/L Absolute Lymphs (auto) 0.80 L (1.0-4.6) x10^3/uL Absolute Monos (auto) 0.93 (0.0-1.3) x10^3/uL Absolute Nucleated RBC 0.00 (0.00-0.01) x10^3u/L Lymphocytes % 5.8 L (24.0-44.0) % Monocytes % 6.8 (0.0-12.0) % Eosinophils % 0.9 (0.00-5.0) % Basophils % 0.1 (0.0-0.4) % Absolute Granulocytes 11.81 H (1.4-6.9) x10^3/uL Basophils # 0.02 (0-0.4) x10^3/uL Sodium 139 (135-145) mmol/L Potassium 3.9 (3.5-5.1) mmol/L Chloride 102 (98-107) mmol/L Carbon Dioxide 30 (22-30) mmol/L Anion Gap 10.8 (5-15) MEQ/L BUN 18 H (7-17) mg/dL Creatinine 0.89 (0.52-1.04) mg/dL Estimated GFR 64.7 ML/MIN Glucose 146 H (74-106) mg/dL Calcium 9.4 (8.4-10.2) mg/dL Total Bilirubin 0.60 (0.2-1.3) mg/dL AST 22 (14-36) U/L ALT 16 (0-35) U/L Alkaline Phosphatase 83 (38-126) U/L Serum Total Protein 6.9 (6.3-8.2) g/dL Albumin 4.0 (3.5-5.0) g/dL Amylase 58 (30-110) U/L Lipase 38 (23-300) U/L Urine Color (Yellow) Urine Appearance (Clear) Urine pH (4.6-8.0) Ur Specific [place] (1.005-1.030) Urine Protein (Negative) Urine Glucose (UA) (Negative) mg/dL Urine Ketones (Negative) Urine Blood (Negative) Urine Nitrite (Negative) Urine Bilirubin (Negative) Urine Urobilinogen (0.2) mg/dL Ur Leukocyte Esterase (Negative) U Hyaline Cast (Auto) (0-2) /LPF Urine Microscopic RBC (0-5) /HPF Urine Microscopic WBC (0-5) /HPF Ur Epithelial Cells (None Seen) /HPF Urine Bacteria (None Seen) /HPF Urine Culture Reflexed (NO) Influenza Type A Ag (NEGATIVE) Influenza Type B Ag (NEGATIVE) RSV (PCR) (NEGATIVE) SARS-CoV-2 (PCR) (NEGATIVE) Group A Strep Antibody NOT DETECTED (NEGATIVE) 07/13/23 07/13/23 Range/Units 11:53 Unknown WBC (4.0-10.5) x10^3/uL RBC (4.1-5.4) x10^6/uL Hgb (12.0-16.0) g/dL Hct (35-47) % MCV (78-100) fL MCH (26-32) pg MCHC (32-36) g/dL RDW (11.5-14.0) % Plt Count (150-450) x10^3/uL MPV (7.5-11.0) fL Gran % (36.0-66.0) % Immature Gran % (Auto) (0.00-0.4) % Nucleat RBC Rel Count (0.00-0.1) % Eos # (Auto) (0-0.5) x10^3/uL Immature Gran # (Auto) (0.00-0.03) x10^3u/L Absolute Lymphs (auto) (1.0-4.6) x10^3/uL Absolute Monos (auto) (0.0-1.3) x10^3/uL Absolute Nucleated RBC (0.00-0.01) x10^3u/L Lymphocytes % (24.0-44.0) % Monocytes % (0.0-12.0) % Eosinophils % (0.00-5.0) % Basophils % (0.0-0.4) % Absolute Granulocytes (1.4-6.9) x10^3/uL Basophils # (0-0.4) x10^3/uL Sodium (135-145) mmol/L Potassium (3.5-5.1) mmol/L Chloride (98-107) mmol/L Carbon Dioxide (22-30) mmol/L Anion Gap (5-15) MEQ/L BUN (7-17) mg/dL Creatinine (0.52-1.04) mg/dL Estimated GFR ML/MIN Glucose (74-106) mg/dL Calcium (8.4-10.2) mg/dL Total Bilirubin (0.2-1.3) mg/dL AST (14-36) U/L ALT (0-35) U/L Alkaline Phosphatase (38-126) U/L Serum Total Protein (6.3-8.2) g/dL Albumin (3.5-5.0) g/dL Amylase (30-110) U/L Lipase (23-300) U/L Urine Color Yellow (Yellow) Urine Appearance Cloudy A (Clear) Urine pH 5.5 (4.6-8.0) Ur Specific [place] >=1.030 A (1.005-1.030) Urine Protein Negative (Negative) Urine Glucose (UA) >=1000 A (Negative) mg/dL Urine Ketones Trace A (Negative) Urine Blood Negative (Negative) Urine Nitrite Negative (Negative) Urine Bilirubin Negative (Negative) Urine Urobilinogen 1.0 A (0.2) mg/dL Ur Leukocyte Esterase Negative (Negative) U Hyaline Cast (Auto) NONE SEEN (0-2) /LPF Urine Microscopic RBC 0-2 (0-5) /HPF Urine Microscopic WBC 6-10 A (0-5) /HPF Ur Epithelial Cells Many A (None Seen) /HPF Urine Bacteria Few A (None Seen) /HPF Urine Culture Reflexed YES (NO) Influenza Type A Ag NEGATIVE (NEGATIVE) Influenza Type B Ag NEGATIVE (NEGATIVE) RSV (PCR) NEGATIVE (NEGATIVE) SARS-CoV-2 (PCR) NEGATIVE (NEGATIVE) Group A Strep Antibody (NEGATIVE) - Radiology Impressions Radiology Exams & Impressions: Radiology Procedures Category Date Time Status ABDOMEN AND PELVIS W/0 CONTRAS [CT] Stat Exams 07/13/23 11:41 Completed - Other Procedures and Tests Respiratory Therapy 07/13/23 14:10 Oxygen Nasal Cannula 3 lpm Assessment/Plan (1) Diverticulitis Current Visit: Yes Status: Acute Assessment & Plan: - Zosyn, IVF - BC x2 - labs daily - Narcotic pain control IV - Zofran PRN N/V - NPO - Tele - CT abd/pelvis 412 IMPRESSION: Multiple distal descending and sigmoid colonic diverticula with evidence of mucosal thickening and mild adjacent fat stranding in the region of sigmoid colon. Possibility of developing diverticulitis cannot be entirely excluded. Clinical correlation is advised and follow-up scan may be considered. Centrilobular emphysematous and fibro-atelectatic changes noted in the visualized lung bases. Lipomatous hypertrophy of the interatrial septum is seen. Large size hiatal hernia noted. Simple right renal cyst and multiple tiny nonobstructive bilateral renal calculi noted. Prominent Schmrl node noted at T9, associated with anterior wedging. Further evaluation with MR recommended to evaluate chronic vs. acute. Code(s): K57.92 - DVTRCLI OF INTEST, PART UNSP, W/O PERF OR ABSCESS W/O BLEED (2) UTI (urinary tract infection) Current Visit: Yes Status: Acute Assessment & Plan: - UC pending - Zosyn - IVF Code(s): N39.0 - URINARY TRACT INFECTION, SITE NOT SPECIFIED (3) Type II diabetes mellitus Current Visit: Yes Status: Acute Qualifiers: Diabetes mellitus ferry terminal supervisor insulin use: without ferry terminal supervisor use Diabetes mellitus complication status: without complication Qualified Code(s): E11.9 - Type 2 diabetes mellitus without complications Assessment & Plan: - accuchecks ac/hs - Humalog s/s - A1C 05/25/23 9.17- uncontrolled (4) Obesity (BMI 30.0-34.9) Current Visit: Yes Status: Chronic Assessment & Plan: - advised ADA diet and exercise control Code(s): E66.9 - OBESITY, UNSPECIFIED (5) HTN (hypertension) Current Visit: Yes Status: Chronic Assessment & Plan: - stable- continue home BP meds Code(s): I10 - ESSENTIAL (PRIMARY) HYPERTENSION (6) Anxiety Current Visit: Yes Status: Acute Assessment & Plan: - hold benzo for now while getting IV pain meds Code(s): F41.9 - ANXIETY DISORDER, UNSPECIFIED (7) COPD (chronic obstructive pulmonary disease) Current Visit: Yes Status: Chronic Assessment & Plan: - w/o acute exacerbcation - On 3LNC- Baseline - Continue home meds (8) GERD (gastroesophageal reflux disease) Current Visit: Yes Status: Chronic Assessment & Plan: - omeprazole VTE: Lovenox PPI: Omeprazole Next of KIN: Chantel Marti [phone] D/C plan: 1-2 days Code status: Full Code(s): K21.9 - GASTRO-ESOPHAGEAL REFLUX DISEASE WITHOUT ESOPHAGITIS Telemedicine Encounter - Telemedicine Encounter Telemedicine Encounter: The entirety of this encounter was performed via Telemedicine"
[2023-07-13] MEDS ORDERED: Ventolin Hfa MDI IH PRN (15:28)
[2023-07-13] MEDS ORDERED: VENTOLIN COMMON CANISTER IH PRN (16:36)
[2023-07-13] MEDS: Zofran 4 MG/2 ML VIAL IV PRN (16:42)
[2023-07-13] MEDS ORDERED: MEDICATION INTERVENTION MC SCH (16:45)
[2023-07-13] MEDS: NORVASC 5 MG PO SCH (17:20)
[2023-07-13] MEDS: Ecotrin 325 MG PO SCH (17:20)
[2023-07-13] MEDS: Toprol-Xl 25MG Tablets PO SCH (17:20)
[2023-07-13] MEDS: Protonix 40MG Tablet PO SCH (17:20)
[2023-07-13] MEDS: Zestril 20 MG PO SCH (17:20)
[2023-07-13] MEDS: [UNRECOGNIZED DRUG - MIXTURE] IV SCH (17:22)
[2023-07-13] MEDS: DUONEB 0.5-3 MG/3 ml Neb IH SCH (17:25)
[2023-07-13] MEDS: Advair Hfa 115/21 Common canister IH SCH (17:25)
[2023-07-13] MEDS ORDERED: Compazine 10 MG/2 ML IV PRN (17:43)
[2023-07-13] MEDS ORDERED: PIPERACILLIN/TAZOBACTAM 3.375 GM in Sodium Chloride 100ML MINI-BAG PLUS 100 ML IV SCH (18:00)
[2023-07-13] MEDS: Calcium 500MG W/Vit D Tablet PO SCH (21:25)
[2023-07-13] MEDS: ZOCOR 20MG PO SCH (21:25)
[2023-07-13] MEDS ORDERED: PROVENTIL 2.5 MG/3 ML NEB IH SCH (22:00)
[2023-07-13] MEDS ORDERED: NON-FORMULARY ITEM (Lovastatin [Lovastatin] 20 MG Tablet) PO SCH (22:00)
[2023-07-13] MEDS ORDERED: NON-FORMULARY ITEM (Calcium Carbonate/Vitamin D3 [Calcium 600-Vit D3 400 Caplet] 1 EACH Ta PO SCH (22:00)
[2023-07-14] MEDS: Tums EX 750 MG PO PRN (04:06)
[2023-07-14 06:27] LABS: Absolute Neutrophil Ct (ANC) 7.23 x10^3/uL (1.4-6.9); BASOPHIL % 0.3 % (0.0-0.4); Basophil (Absolute #) 0.03 x10^3/uL (0-0.4); Eosinophil % 1.4 % (0.00-5.0); Eosinophil (Absolute #) 0.14 x10^3/uL (0-0.5); Hematocrit 38.4 % (35-47); Hemoglobin 12.1 g/dL (12.0-16.0); IMMATURE GRAN # 0.04 x10^3u/L (0.00-0.03); IMMATURE GRAN % 0.4 % (0.00-0.4); Lymphocyte (Absolute #) 1.17 x10^3/uL (1.0-4.6); Lymphocytes % 12.1 % (24.0-44.0); Mean Cell Volume 91.9 fL (78-100); Mean Corpuscular Hemoglobin 28.9 pg (26-32); Mean Corpuscular Hgb Concent. 31.5 g/dL (32-36); Mean Platelet Volume 10.4 fL (7.5-11.0); Monocyte (Absolute #) 1.07 x10^3/uL (0.0-1.3); Monocytes % 11.1 % (0.0-12.0); Neutrophil % 74.7 % (36.0-66.0); Platelet Count 223 x10^3/uL (150-450); Red Blood Count 4.18 x10^6/uL (4.1-5.4); Red Cell Distribution Width 13.3 % (11.5-14.0); White Blood Count 9.7 x10^3/uL (4.0-10.5)
[2023-07-14 06:34] LABS: ALBUMIN 3.2 g/dL (3.5-5.0); ANION GAP 8.4 MEQ/L (5-15); BILIRUBIN,TOTAL 0.9 mg/dL (0.2-1.3); Calcium 8.6 mg/dL (8.4-10.2); Creatinine 1 0.84 mg/dL (0.52-1.04); EST GLOMERULAR FILTRATION RATE 69.3 ML/MIN; Potassium 3.6 mmol/L (3.5-5.1); Total Protein 5.8 g/dL (6.3-8.2)
[2023-07-14] MEDS: ENOXAPARIN SODIUM SQ SCH (09:22)
[2023-07-14] MEDS: JARDIANCE PO SCH (09:23)
--- NOTE | 2023-07-14 09:58 | PCM.NOTE ---
Date and Time: 07/14/23 0952 Subjective Assessment: 07/13/23 is a 83 year old female is PMHX of [place], diverticulitis, GERD, HTN, hyperlipidemia, COPD, Type II DM, and OA. She wears oxygen at 3lNC at baseline. Pt came in the ER today for C/O abdominal pain for approx 10-14 days. States her entire abdomen hurts, and generalized body aches. Pain is constant. States + nausea with no vomiting. Generalized Abd tenderness with palpation, LBM was yesterday and normal. She denies chest pain and fever. Treated in ER with zosyn, IVF, zofran and morphine. Will continue with same plan of care for dx of diverticulitis as seen on CT scan of abd/pelvis. 07/14/23 Pt sitting up in bed. She reports feeling better today but has some epigastric abd. pain with palpation, and some weakness. Started on clear liquid diet and doing well. Will transition diet as tolerated. UC pending. Continue IV antibiotics for UTI and diverticulitis. She denies CP, SOB, N/V/D. Most likely will d/c tomorrow. - Review of Systems Constitutional: Weakness, No Fever, No Chills Eyes: No Symptoms Ears, Nose, & Throat: No Symptoms Respiratory: No Cough, No Short Of Breath Cardiac: No Chest Pain, No Edema, No Syncope Abdominal/Gastrointestinal: Abdominal Pain, No Nausea, No Vomiting, No Diarrhea Genitourinary Symptoms: No Dysuria Musculoskeletal: No Back Pain, No Neck Pain Skin: No Rash Neurological: No Dizziness, No Focal Weakness, No Sensory Changes Psychological: No Symptoms Endocrine: No Symptoms Hematologic/Lymphatic: No Symptoms Immunological/Allergic: No Symptoms Objective Exam General Appearance: no apparent distress, alert Neurologic Exam: alert, oriented x 3, cooperative, normal mood/affect, nml cerebellar function, sensation nml, No motor deficits Skin Exam: normal color, warm, dry Eye Exam: PERRL, EOMI, eyes nml inspection Ears, Nose, Throat Exam: normal ENT inspection, pharynx normal, moist mucous membranes Neck Exam: normal inspection, non-tender, supple, full range of motion Respiratory Exam: normal breath sounds, lungs clear, No respiratory distress Cardiovascular Exam: regular rate/rhythm, normal heart sounds Gastrointestinal/Abdomen Exam: soft, normal bowel sounds, tenderness (epigastric region), No mass Extremity Exam: normal inspection, normal range of motion Back Exam: normal inspection, normal range of motion, No CVA tenderness, No vertebral tenderness Pelvic Exam: deferred Rectal Exam: deferred Objective Data Vital Signs: Vital Signs - 24 hr Temp Pulse Resp BP BP Pulse Ox 07/14/23 08:00 98.4 F 84 16 120/71 92 L 07/14/23 07:09 88 18 97 07/14/23 02:00 97.9 F 88 21 110/62 93 L 07/13/23 20:00 98.7 F 101 H 24 121/65 92 L 07/13/23 17:29 96 H 20 92 L 07/13/23 16:00 97.8 F 93 H 20 132/66 90 L 07/13/23 14:51 98.6 F 96 H 18 142/70 91 L 07/13/23 14:10 98.6 F 96 H 18 142/70 94 L 07/13/23 13:44 96 07/13/23 13:30 70 19 105/53 95 07/13/23 13:00 90 25 H 110/56 95 07/13/23 12:31 94 H 18 120/52 95 07/13/23 12:04 98 H 21 124/67 96 07/13/23 11:31 120/65 07/13/23 11:07 104/68 07/13/23 10:50 99.4 F 97 H 23 112/64 96 Pain Assessment - Last Documented Pain Intensity 0 Intake and Output: Intake & Output 07/11/23 07/12/23 07/13/23 07/14/23 11:59 11:59 11:59 11:59 Intake Total 2532 Balance 2532 Weight 83.5 kg 83.7 kg Lab Results: Lab Results-Last 24 Hours 07/13/23 07/13/23 07/13/23 Range/Units 11:50 11:50 11:53 WBC 13.8 H (4.0-10.5) x10^3/uL RBC 4.67 (4.1-5.4) x10^6/uL Hgb 13.7 (12.0-16.0) g/dL Hct 42.8 (35-47) % MCV 91.6 (78-100) fL MCH 29.3 (26-32) pg MCHC 32.0 (32-36) g/dL RDW 13.2 (11.5-14.0) % Plt Count 255 (150-450) x10^3/uL MPV 9.8 (7.5-11.0) fL Gran % 85.8 H (36.0-66.0) % Immature Gran % (Auto) 0.6 H (0.00-0.4) % Nucleat RBC Rel Count 0.0 (0.00-0.1) % Eos # (Auto) 0.13 (0-0.5) x10^3/uL Immature Gran # (Auto) 0.08 H (0.00-0.03) x10^3u/L Absolute Lymphs (auto) 0.80 L (1.0-4.6) x10^3/uL Absolute Monos (auto) 0.93 (0.0-1.3) x10^3/uL Absolute Nucleated RBC 0.00 (0.00-0.01) x10^3u/L Lymphocytes % 5.8 L (24.0-44.0) % Monocytes % 6.8 (0.0-12.0) % Eosinophils % 0.9 (0.00-5.0) % Basophils % 0.1 (0.0-0.4) % Absolute Granulocytes 11.81 H (1.4-6.9) x10^3/uL Basophils # 0.02 (0-0.4) x10^3/uL Sodium 139 (135-145) mmol/L Potassium 3.9 (3.5-5.1) mmol/L Chloride 102 (98-107) mmol/L Carbon Dioxide 30 (22-30) mmol/L Anion Gap 10.8 (5-15) MEQ/L BUN 18 H (7-17) mg/dL Creatinine 0.89 (0.52-1.04) mg/dL Estimated GFR 64.7 ML/MIN Glucose 146 H (74-106) mg/dL POC Glucometer (74 to 106) mg/dL Calcium 9.4 (8.4-10.2) mg/dL Total Bilirubin 0.60 (0.2-1.3) mg/dL AST 22 (14-36) U/L ALT 16 (0-35) U/L Alkaline Phosphatase 83 (38-126) U/L Serum Total Protein 6.9 (6.3-8.2) g/dL Albumin 4.0 (3.5-5.0) g/dL Amylase 58 (30-110) U/L Lipase 38 (23-300) U/L Urine Color (Yellow) Urine Appearance (Clear) Urine pH (4.6-8.0) Ur Specific [place] (1.005-1.030) Urine Protein (Negative) Urine Glucose (UA) (Negative) mg/dL Urine Ketones (Negative) Urine Blood (Negative) Urine Nitrite (Negative) Urine Bilirubin (Negative) Urine Urobilinogen (0.2) mg/dL Ur Leukocyte Esterase (Negative) U Hyaline Cast (Auto) (0-2) /LPF Urine Microscopic RBC (0-5) /HPF Urine Microscopic WBC (0-5) /HPF Ur Epithelial Cells (None Seen) /HPF Urine Bacteria (None Seen) /HPF Urine Culture Reflexed (NO) Influenza Type A Ag (NEGATIVE) Influenza Type B Ag (NEGATIVE) RSV (PCR) (NEGATIVE) SARS-CoV-2 (PCR) (NEGATIVE) Group A Strep Antibody NOT DETECTED (NEGATIVE) 07/13/23 07/13/23 07/13/23 Range/Units 11:53 16:48 20:43 WBC (4.0-10.5) x10^3/uL RBC (4.1-5.4) x10^6/uL Hgb (12.0-16.0) g/dL Hct (35-47) % MCV (78-100) fL MCH (26-32) pg MCHC (32-36) g/dL RDW (11.5-14.0) % Plt Count (150-450) x10^3/uL MPV (7.5-11.0) fL Gran % (36.0-66.0) % Immature Gran % (Auto) (0.00-0.4) % Nucleat RBC Rel Count (0.00-0.1) % Eos # (Auto) (0-0.5) x10^3/uL Immature Gran # (Auto) (0.00-0.03) x10^3u/L Absolute Lymphs (auto) (1.0-4.6) x10^3/uL Absolute Monos (auto) (0.0-1.3) x10^3/uL Absolute Nucleated RBC (0.00-0.01) x10^3u/L Lymphocytes % (24.0-44.0) % Monocytes % (0.0-12.0) % Eosinophils % (0.00-5.0) % Basophils % (0.0-0.4) % Absolute Granulocytes (1.4-6.9) x10^3/uL Basophils # (0-0.4) x10^3/uL Sodium (135-145) mmol/L Potassium (3.5-5.1) mmol/L Chloride (98-107) mmol/L Carbon Dioxide (22-30) mmol/L Anion Gap (5-15) MEQ/L BUN (7-17) mg/dL Creatinine (0.52-1.04) mg/dL Estimated GFR ML/MIN Glucose (74-106) mg/dL POC Glucometer 95 111 H (74 to 106) mg/dL Calcium (8.4-10.2) mg/dL Total Bilirubin (0.2-1.3) mg/dL AST (14-36) U/L ALT (0-35) U/L Alkaline Phosphatase (38-126) U/L Serum Total Protein (6.3-8.2) g/dL Albumin (3.5-5.0) g/dL Amylase (30-110) U/L Lipase (23-300) U/L Urine Color (Yellow) Urine Appearance (Clear) Urine pH (4.6-8.0) Ur Specific [place] (1.005-1.030) Urine Protein (Negative) Urine Glucose (UA) (Negative) mg/dL Urine Ketones (Negative) Urine Blood (Negative) Urine Nitrite (Negative) Urine Bilirubin (Negative) Urine Urobilinogen (0.2) mg/dL Ur Leukocyte Esterase (Negative) U Hyaline Cast (Auto) (0-2) /LPF Urine Microscopic RBC (0-5) /HPF Urine Microscopic WBC (0-5) /HPF Ur Epithelial Cells (None Seen) /HPF Urine Bacteria (None Seen) /HPF Urine Culture Reflexed (NO) Influenza Type A Ag NEGATIVE (NEGATIVE) Influenza Type B Ag NEGATIVE (NEGATIVE) RSV (PCR) NEGATIVE (NEGATIVE) SARS-CoV-2 (PCR) NEGATIVE (NEGATIVE) Group A Strep Antibody (NEGATIVE) 07/13/23 07/13/23 07/14/23 Range/Units 23:34 Unknown 04:07 WBC (4.0-10.5) x10^3/uL RBC (4.1-5.4) x10^6/uL Hgb (12.0-16.0) g/dL Hct (35-47) % MCV (78-100) fL MCH (26-32) pg MCHC (32-36) g/dL RDW (11.5-14.0) % Plt Count (150-450) x10^3/uL MPV (7.5-11.0) fL Gran % (36.0-66.0) % Immature Gran % (Auto) (0.00-0.4) % Nucleat RBC Rel Count (0.00-0.1) % Eos # (Auto) (0-0.5) x10^3/uL Immature Gran # (Auto) (0.00-0.03) x10^3u/L Absolute Lymphs (auto) (1.0-4.6) x10^3/uL Absolute Monos (auto) (0.0-1.3) x10^3/uL Absolute Nucleated RBC (0.00-0.01) x10^3u/L Lymphocytes % (24.0-44.0) % Monocytes % (0.0-12.0) % Eosinophils % (0.00-5.0) % Basophils % (0.0-0.4) % Absolute Granulocytes (1.4-6.9) x10^3/uL Basophils # (0-0.4) x10^3/uL Sodium (135-145) mmol/L Potassium (3.5-5.1) mmol/L Chloride (98-107) mmol/L Carbon Dioxide (22-30) mmol/L Anion Gap (5-15) MEQ/L BUN (7-17) mg/dL Creatinine (0.52-1.04) mg/dL Estimated GFR ML/MIN Glucose (74-106) mg/dL POC Glucometer 85 98 (74 to 106) mg/dL Calcium (8.4-10.2) mg/dL Total Bilirubin (0.2-1.3) mg/dL AST (14-36) U/L ALT (0-35) U/L Alkaline Phosphatase (38-126) U/L Serum Total Protein (6.3-8.2) g/dL Albumin (3.5-5.0) g/dL Amylase (30-110) U/L Lipase (23-300) U/L Urine Color Yellow (Yellow) Urine Appearance Cloudy A (Clear) Urine pH 5.5 (4.6-8.0) Ur Specific [place] >=1.030 A (1.005-1.030) Urine Protein Negative (Negative) Urine Glucose (UA) >=1000 A (Negative) mg/dL Urine Ketones Trace A (Negative) Urine Blood Negative (Negative) Urine Nitrite Negative (Negative) Urine Bilirubin Negative (Negative) Urine Urobilinogen 1.0 A (0.2) mg/dL Ur Leukocyte Esterase Negative (Negative) U Hyaline Cast (Auto) NONE SEEN (0-2) /LPF Urine Microscopic RBC 0-2 (0-5) /HPF Urine Microscopic WBC 6-10 A (0-5) /HPF Ur Epithelial Cells Many A (None Seen) /HPF Urine Bacteria Few A (None Seen) /HPF Urine Culture Reflexed YES (NO) Influenza Type A Ag (NEGATIVE) Influenza Type B Ag (NEGATIVE) RSV (PCR) (NEGATIVE) SARS-CoV-2 (PCR) (NEGATIVE) Group A Strep Antibody (NEGATIVE) 07/14/23 07/14/23 07/14/23 Range/Units 05:28 05:28 07:39 WBC 9.7 (4.0-10.5) x10^3/uL RBC 4.18 (4.1-5.4) x10^6/uL Hgb 12.1 (12.0-16.0) g/dL Hct 38.4 (35-47) % MCV 91.9 (78-100) fL MCH 28.9 (26-32) pg MCHC 31.5 L (32-36) g/dL RDW 13.3 (11.5-14.0) % Plt Count 223 (150-450) x10^3/uL MPV 10.4 (7.5-11.0) fL Gran % 74.7 H (36.0-66.0) % Immature Gran % (Auto) 0.4 (0.00-0.4) % Nucleat RBC Rel Count 0.0 (0.00-0.1) % Eos # (Auto) 0.14 (0-0.5) x10^3/uL Immature Gran # (Auto) 0.04 H (0.00-0.03) x10^3u/L Absolute Lymphs (auto) 1.17 (1.0-4.6) x10^3/uL Absolute Monos (auto) 1.07 (0.0-1.3) x10^3/uL Absolute Nucleated RBC 0.00 (0.00-0.01) x10^3u/L Lymphocytes % 12.1 L (24.0-44.0) % Monocytes % 11.1 (0.0-12.0) % Eosinophils % 1.4 (0.00-5.0) % Basophils % 0.3 (0.0-0.4) % Absolute Granulocytes 7.23 H (1.4-6.9) x10^3/uL Basophils # 0.03 (0-0.4) x10^3/uL Sodium 138 (135-145) mmol/L Potassium 3.6 (3.5-5.1) mmol/L Chloride 107 (98-107) mmol/L Carbon Dioxide 26 (22-30) mmol/L Anion Gap 8.4 (5-15) MEQ/L BUN 16 (7-17) mg/dL Creatinine 0.84 (0.52-1.04) mg/dL Estimated GFR 69.3 ML/MIN Glucose 90 (74-106) mg/dL POC Glucometer 123 H (74 to 106) mg/dL Calcium 8.6 (8.4-10.2) mg/dL Total Bilirubin 0.90 (0.2-1.3) mg/dL AST 21 (14-36) U/L ALT 13 (0-35) U/L Alkaline Phosphatase 67 (38-126) U/L Serum Total Protein 5.8 L (6.3-8.2) g/dL Albumin 3.2 L (3.5-5.0) g/dL Amylase (30-110) U/L Lipase (23-300) U/L Urine Color (Yellow) Urine Appearance (Clear) Urine pH (4.6-8.0) Ur Specific [place] (1.005-1.030) Urine Protein (Negative) Urine Glucose (UA) (Negative) mg/dL Urine Ketones (Negative) Urine Blood (Negative) Urine Nitrite (Negative) Urine Bilirubin (Negative) Urine Urobilinogen (0.2) mg/dL Ur Leukocyte Esterase (Negative) U Hyaline Cast (Auto) (0-2) /LPF Urine Microscopic RBC (0-5) /HPF Urine Microscopic WBC (0-5) /HPF Ur Epithelial Cells (None Seen) /HPF Urine Bacteria (None Seen) /HPF Urine Culture Reflexed (NO) Influenza Type A Ag (NEGATIVE) Influenza Type B Ag (NEGATIVE) RSV (PCR) (NEGATIVE) SARS-CoV-2 (PCR) (NEGATIVE) Group A Strep Antibody (NEGATIVE) Radiology Exams: Radiology Procedures Category Date Time Status ABDOMEN AND PELVIS W/0 CONTRAS [CT] Stat Exams 07/13/23 11:41 Completed Assessment/Plan (1) Diverticulitis Current Visit: Yes Status: Acute Code(s): K57.92 - DVTRCLI OF INTEST, PART UNSP, W/O PERF OR ABSCESS W/O BLEED (2) UTI (urinary tract infection) Current Visit: Yes Status: Acute Code(s): N39.0 - URINARY TRACT INFECTION, SITE NOT SPECIFIED (3) Type II diabetes mellitus Current Visit: Yes Status: Acute Qualifiers: Diabetes mellitus group home insulin use: without buttermaker helper use Diabetes mellitus complication status: without complication Qualified Code(s): E11.9 - Type 2 diabetes mellitus without complications (4) Obesity (BMI 30.0-34.9) Current Visit: Yes Status: Chronic Code(s): E66.9 - OBESITY, UNSPECIFIED (5) HTN (hypertension) Current Visit: Yes Status: Chronic Code(s): I10 - ESSENTIAL (PRIMARY) HYPERTENSION (6) Anxiety Current Visit: Yes Status: Acute Code(s): F41.9 - ANXIETY DISORDER, UNSPECIFIED (7) COPD (chronic obstructive pulmonary disease) Current Visit: Yes Status: Chronic (8) GERD (gastroesophageal reflux disease) Current Visit: Yes Status: Chronic Assessment & Plan: (1) Diverticulitis Current Visit: Yes Status: Acute Assessment & Plan: - Zosyn, IVF - BC x2 - labs daily - Narcotic pain control IV - Zofran PRN N/V - NPO - Tele - CT abd/pelvis 412 IMPRESSION: Multiple distal descending and sigmoid colonic diverticula with evidence of mucosal thickening and mild adjacent fat stranding in the region of sigmoid colon. Possibility of developing diverticulitis cannot be entirely excluded. Clinical correlation is advised and follow-up scan may be considered. Centrilobular emphysematous and fibro-atelectatic changes noted in the visualized lung bases. Lipomatous hypertrophy of the interatrial septum is seen. Large size hiatal hernia noted. Simple right renal cyst and multiple tiny nonobstructive bilateral renal calculi noted. Prominent Schmrl node noted at T9, associated with anterior wedging. Further evaluation with MR recommended to evaluate chronic vs. acute. 07/13 - Clear liquid diet- transition as tolerated - drinking well - Stop IVF - Continue IV antibiotics - Weakness 2:2 dx - No N/V/D today - WBC 9.7 Code(s): K57.92 - DVTRCLI OF INTEST, PART UNSP, W/O PERF OR ABSCESS W/O BLEED (2) UTI (urinary tract infection) Current Visit: Yes Status: Acute Assessment & Plan: - UC pending - Zosyn - IVF- stopped Code(s): N39.0 - URINARY TRACT INFECTION, SITE NOT SPECIFIED (3) Type II diabetes mellitus Current Visit: Yes Status: Acute Qualifiers: Diabetes mellitus group home insulin use: without group home use Diabetes mellitus complication status: without complication Qualified Code(s): E11.9 - Type 2 diabetes mellitus without complications Assessment & Plan: - accuchecks ac/hs - Humalog s/s - A1C 05/25/23 9.17- uncontrolled (4) Obesity (BMI 30.0-34.9) Current Visit: Yes Status: Chronic Assessment & Plan: - advised ADA diet and exercise control Code(s): E66.9 - OBESITY, UNSPECIFIED (5) HTN (hypertension) Current Visit: Yes Status: Chronic Assessment & Plan: - stable- continue home BP meds Code(s): I10 - ESSENTIAL (PRIMARY) HYPERTENSION (6) Anxiety Current Visit: Yes Status: Acute Assessment & Plan: - hold benzo for now while getting IV pain meds Code(s): F41.9 - ANXIETY DISORDER, UNSPECIFIED (7) COPD (chronic obstructive pulmonary disease) Current Visit: Yes Status: Chronic Assessment & Plan: - w/o acute exacerbation - On 3LNC- Baseline - Continue home meds (8) GERD (gastroesophageal reflux disease) Current Visit: Yes Status: Chronic Assessment & Plan: - omeprazole VTE: Lovenox PPI: Omeprazole Next of KIN: Chantel Marti [phone] D/C plan: tomorrow Code status: Full Code(s): K21.9 - GASTRO-ESOPHAGEAL REFLUX DISEASE WITHOUT ESOPHAGITIS
[2023-07-14] MEDS ORDERED: NON-FORMULARY ITEM (Fluticasone/Umeclidin/Vilanter [Trelegy Ellipta 100-62.5-25] 1 EACH Bl PO SCH (10:00)
[2023-07-14] MEDS ORDERED: Zestril 20 MG PO SCH (10:00)
[2023-07-14] MEDS ORDERED: NON-FORMULARY ITEM (Omeprazole [Omeprazole] 40 MG Capsule.Dr) PO SCH (10:00)
[2023-07-15] MEDS ORDERED: Sodium Chloride 0.9% 500 ML 500 ML IV ONE (00:12)
[2023-07-15] MEDS: Sodium Chloride 0.9% 500 ML 500 ML IV SCH (00:38)
[2023-07-15] MEDS ORDERED: DUONEB 0.5-3 MG/3 ml Neb IH ONE (05:08)
[2023-07-15 05:17] VITALS: RESP 16
[2023-07-15 06:15] LABS: Hematocrit 37.1 % (35-47); Hemoglobin 11.8 g/dL (12.0-16.0); Mean Cell Volume 92.3 fL (78-100); Mean Corpuscular Hemoglobin 29.4 pg (26-32); Mean Corpuscular Hgb Concent. 31.8 g/dL (32-36); Mean Platelet Volume 9.9 fL (7.5-11.0); Platelet Count 206 x10^3/uL (150-450); Red Blood Count 4.02 x10^6/uL (4.1-5.4); Red Cell Distribution Width 13.4 % (11.5-14.0); White Blood Count 8.1 x10^3/uL (4.0-10.5)
[2023-07-15 06:45] LABS: ALBUMIN 3.5 g/dL (3.5-5.0); ANION GAP 8.8 MEQ/L (5-15); BILIRUBIN,TOTAL 0.5 mg/dL (0.2-1.3); Calcium 8.8 mg/dL (8.4-10.2); Creatinine 1 0.9 mg/dL (0.52-1.04); EST GLOMERULAR FILTRATION RATE 63.8 ML/MIN; Potassium 3.5 mmol/L (3.5-5.1); Total Protein 6.1 g/dL (6.3-8.2)
[2023-07-15 07:06] VITALS: O2SAT 92
--- NOTE | 2023-07-15 11:05 | PCM.DS ---
Discharge Summary Date of Admission: 07/13/23 14:07 Date of Discharge: 07/15/23 Admitting Physician: MAKENZIE DENT MD Primary Care Provider: KELLY RAMOS DO Allergies Allergies metformin Adverse Reaction (Verified 07/13/23 15:06) Sick to stomach, headache Hospital Summary - Hospital Course Hospital Course: 07/13/23 is a 83 year old female is PMHX of YOMBA SHOSHONE, diverticulitis, GERD, HTN, hyperlipidemia, COPD, Type II DM, and OA. She wears oxygen at 3lNC at baseline. Pt came in the ER today for C/O abdominal pain for approx 10-14 days. States her entire abdomen hurts, and generalized body aches. Pain is constant. States + nausea with no vomiting. Generalized Abd tenderness with palpation, LBM was yesterday and normal. She denies chest pain and fever. Treated in ER with zosyn, IVF, zofran and morphine. Will continue with same plan of care for dx of diverticulitis as seen on CT scan of abd/pelvis. 07/14/23 Pt sitting up in bed. She reports feeling better today but has some epigastric abd. pain with palpation, and some weakness. Started on clear liquid diet and doing well. Will transition diet as tolerated. UC pending. Continue IV antibiotics for UTI and diverticulitis. She denies CP, SOB, N/V/D. Most likely will d/c tomorrow. 07/15/23 Pt sitting up in bed. She reports she is feeling much better and would like to go home today. She denies stomach pain today, no pain with palpation, no diarrhea. UC negative for UTI. Will continue antibiotics OP for diverticulitis. Discussed to eat a high fiber diet OP. She denies CP, SOB, N/V. - Vitals & Intake/Output Vital Signs: Vital Signs Temperature 98.4 F 07/15/23 07:05 Pulse Rate 84 07/15/23 07:05 Respiratory Rate 16 07/15/23 07:05 Blood Pressure 125/60 07/15/23 07:05 O2 Sat by Pulse Oximetry 92 L 07/15/23 07:05 Intake & Output: Intake & Output 07/12/23 07/13/23 07/14/23 07/15/23 11:59 11:59 11:59 11:59 Intake Total 2532 2260 Balance 2531 2259 Weight 83.5 kg 83.7 kg - Lab Result Diagrams: 07/15/23 06:15 07/15/23 06:15 Lab Results-Last 24 Hrs: Lab Results-Last 24 Hours 07/14/23 07/14/23 07/14/23 Range/Units 11:42 16:33 20:23 WBC (4.0-10.5) x10^3/uL RBC (4.1-5.4) x10^6/uL Hgb (12.0-16.0) g/dL Hct (35-47) % MCV (78-100) fL MCH (26-32) pg MCHC (32-36) g/dL RDW (11.5-14.0) % Plt Count (150-450) x10^3/uL MPV (7.5-11.0) fL Sodium (135-145) mmol/L Potassium (3.5-5.1) mmol/L Chloride (98-107) mmol/L Carbon Dioxide (22-30) mmol/L Anion Gap (5-15) MEQ/L BUN (7-17) mg/dL Creatinine (0.52-1.04) mg/dL Estimated GFR ML/MIN Glucose (74-106) mg/dL POC Glucometer 114 H 113 H 180 H (74 to 106) mg/dL Calcium (8.4-10.2) mg/dL Total Bilirubin (0.2-1.3) mg/dL AST (14-36) U/L ALT (0-35) U/L Alkaline Phosphatase (38-126) U/L Serum Total Protein (6.3-8.2) g/dL Albumin (3.5-5.0) g/dL 07/15/23 07/15/23 07/15/23 Range/Units 06:15 06:15 07:23 WBC 8.1 (4.0-10.5) x10^3/uL RBC 4.02 L (4.1-5.4) x10^6/uL Hgb 11.8 L (12.0-16.0) g/dL Hct 37.1 (35-47) % MCV 92.3 (78-100) fL MCH 29.4 (26-32) pg MCHC 31.8 L (32-36) g/dL RDW 13.4 (11.5-14.0) % Plt Count 206 (150-450) x10^3/uL MPV 9.9 (7.5-11.0) fL Sodium 140 (135-145) mmol/L Potassium 3.5 (3.5-5.1) mmol/L Chloride 106 (98-107) mmol/L Carbon Dioxide 28 (22-30) mmol/L Anion Gap 8.8 (5-15) MEQ/L BUN 13 (7-17) mg/dL Creatinine 0.90 (0.52-1.04) mg/dL Estimated GFR 63.8 ML/MIN Glucose 125 H (74-106) mg/dL POC Glucometer 133 H (74 to 106) mg/dL Calcium 8.8 (8.4-10.2) mg/dL Total Bilirubin 0.50 (0.2-1.3) mg/dL AST 20 (14-36) U/L ALT 15 (0-35) U/L Alkaline Phosphatase 70 (38-126) U/L Serum Total Protein 6.1 L (6.3-8.2) g/dL Albumin 3.5 (3.5-5.0) g/dL Micro Results-Entire Visit: Microbiology 07/13/23 Unknown Urine Culture - Final Urine, Void MIXED CHACHA; 3 OR MORE TYPES. NO PREDOMINANT ORGANISM. NO FURTHER WORKUP. PLEASE RESUBMIT IF CLINICALLY INDICATED. Accuchecks Date 07/15/23 Date 07/14/23 Date 07/14/23 Date 07/14/23 Date 07/14/23 Time 07:25 Time 20:45 Time 16:41 Time 11:46 - Radiology Exams Ordered Rad Exams-Entire Visit: Radiology Procedures Category Date Time Status ABDOMEN AND PELVIS W/0 CONTRAS [CT] Stat Exams 07/13/23 11:41 Completed - Procedures and Test Procedures and Tests throughout Hospitalization: Therapy Orders & Screens 07/13/23 14:10 Oxygen Nasal Cannula 3 lpm Comment: 07/14/23 07:00 Respiratory Therapy Assessment DAILY Comment: Diagnosis: Diverticulitis; Abdominal pain; UTI Discharge Exam General Appearance: no apparent distress, alert Neurologic Exam: alert, oriented x 3, cooperative, normal mood/affect, nml cerebellar function, sensation nml, No motor deficits Eye Exam: PERRL, EOMI, eyes nml inspection Ears, Nose, Throat Exam: normal ENT inspection, pharynx normal, moist mucous membranes Neck Exam: normal inspection, non-tender, supple, full range of motion Respiratory Exam: normal breath sounds, lungs clear, No respiratory distress Cardiovascular Exam: regular rate/rhythm, normal heart sounds Gastrointestinal/Abdomen Exam: soft, No tenderness, No mass Pelvic Exam: deferred Rectal Exam: deferred Back Exam: normal inspection, normal range of motion, No CVA tenderness, No vertebral tenderness Extremity Exam: normal inspection, normal range of motion Skin Exam: normal color, warm, dry Final Diagnosis/Problem List - Final Discharge Diagnosis/Problem (1) Diverticulitis Current Visit: Yes Status: Acute Code(s): K57.92 - DVTRCLI OF INTEST, PART UNSP, W/O PERF OR ABSCESS W/O BLEED (2) UTI (urinary tract infection) Current Visit: Yes Status: Acute Code(s): N39.0 - URINARY TRACT INFECTION, SITE NOT SPECIFIED (3) Type II diabetes mellitus Current Visit: Yes Status: Acute (4) Obesity (BMI 30.0-34.9) Current Visit: Yes Status: Chronic Code(s): E66.9 - OBESITY, UNSPECIFIED (5) HTN (hypertension) Current Visit: Yes Status: Chronic Code(s): I10 - ESSENTIAL (PRIMARY) HYPE RTENSION (6) Anxiety Current Visit: Yes Status: Acute Code(s): F41.9 - ANXIETY DISORDER, UNSPECIFIED (7) COPD (chronic obstructive pulmonary disease) Current Visit: Yes Status: Chronic (8) GERD (gastroesophageal reflux disease) Current Visit: Yes Status: Chronic Assessment & Plan: (1) Diverticulitis Current Visit: Yes Status: Acute Assessment & Plan: - Zosyn, IVF - BC x2 - labs daily - Narcotic pain control IV - Zofran PRN N/V - NPO - Tele - CT abd/pelvis 412 IMPRESSION: Multiple distal descending and sigmoid colonic diverticula with evidence of mucosal thickening and mild adjacent fat stranding in the region of sigmoid colon. Possibility of developing diverticulitis cannot be entirely excluded. Clinical correlation is advised and follow-up scan may be considered. Centrilobular emphysematous and fibro-atelectatic changes noted in the visualized lung bases. Lipomatous hypertrophy of the interatrial septum is seen. Large size hiatal hernia noted. Simple right renal cyst and multiple tiny nonobstructive bilateral renal calculi noted. Prominent Schmrl node noted at T9, associated with anterior wedging. Further evaluation with MR recommended to evaluate chronic vs. acute. 07/13 - Clear liquid diet- transition as tolerated - drinking well - Stop IVF - Continue IV antibiotics - Weakness 2:2 dx - No N/V/D today - WBC 9.7 07/14 - regular diet well tolerated - No abd. 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 insulin use: without senior living use Diabetes mellitus complication status: without complication Qualified Code(s): E11.9 - Type 2 diabetes mellitus without complications Assessment & Plan: - accuchecks ac/hs - Humalog s/s - A1C 05/25/23 9.17- uncontrolled (4) Obesity (BMI 30.0-34.9) Current Visit: Yes Status: Chronic Assessment & Plan: - advised ADA diet and exercise control Code(s): E66.9 - OBESITY, UNSPECIFIED (5) HTN (hypertension) Current Visit: Yes Status: Chronic Assessment & Plan: - stable- continue home BP meds Code(s): I10 - ESSENTIAL (PRIMARY) HYPERTENSION (6) Anxiety Current Visit: Yes Status: Acute Assessment & Plan: - hold benzo for now while getting IV pain meds Code(s): F41.9 - ANXIETY DISORDER, UNSPECIFIED (7) COPD (chronic obstructive pulmonary disease) Current Visit: Yes Status: Chronic Assessment & Plan: - w/o acute exacerbation - On 3LNC- Baseline - Continue home meds (8) GERD (gastroesophageal reflux disease) Current Visit: Yes Status: Chronic Assessment & Plan: - omeprazole Code(s): K21.9 - GASTRO-ESOPHAGEAL REFLUX DISEASE WITHOUT ESOPHAGITIS - Discharge Discharge Date: 07/15/23 Disposition: Home, Self-Care Condition: Stable Prescriptions: Continue Albuterol 8 gm Mdi Hfa [Ventolin Hfa MDI] 8 gm IH QIDPRN PRN PRN Reason: Severe Pain Albuterol 2.5 mg/3 ml Neb [Proventil 2.5 mg/3 ml Neb] 2.5 mg IH BID Lovastatin 20 mg PO HS Aspirin EC 325 mg [Ecotrin 325 MG] 325 mg PO DAILY Calcium Carbonate/Vitamin D3 [Calcium 600-Vit D3 400 Caplet] 1 each PO BID Omeprazole 40 mg PO DAILY Metoprolol Succinate 25 mg Xl* [Toprol-Xl 25MG Tablets] 25 mg PO DAILY Fluticasone/Umeclidin/Vilanter [Trelegy Ellipta 100-62.5-25] 1 inh PO DAILY Lisinopril 20 mg [Zestril 20 MG] 40 mg PO DAILY #30 tablet Amlodipine Besylate 5 mg [Norvasc 5 mg] 5 mg PO DAILY Empagliflozin [Jardiance] 25 mg PO DAILY Semaglutide [Rybelsus] 7 mg PO DAILY Instructions: High Fiber Diet, Diverticulitis (DC) Follow up with: KELLY RAMOS DO [Primary Care Provider] -
[2023-07-15 11:24] VITALS: BP 143/72; PULSE 94; TEMP 98
== END 2023-07-15 11:28 | disposition home or self-care (01) ==
LOC: ED 10:26 → MED SURG 14:07
PROVIDERS: ADMIT Internal Medicine; ATTEND Internal Medicine
DX: K57.92 Diverticulitis of intestine, part unspecified, without perforation or abscess without bleeding (principal); N39.0 Urinary tract infection, site not specified; E11.9 Type 2 diabetes mellitus without complications; E66.9 Obesity, unspecified; I10 Essential (primary) hypertension; F41.9 Anxiety disorder, unspecified; J44.9 Chronic obstructive pulmonary disease, unspecified; K21.9 Gastro-esophageal reflux disease without esophagitis; E78.5 Hyperlipidemia, unspecified; D72.829 Elevated white blood cell count, unspecified; Z79.899 Other long term (current) drug therapy; Z99.81 Dependence on supplemental oxygen
CPT/HCPCS: 0241U; 36000; 36415; 74176; 80053; 81001; 82150; 82947; 83690; 85025; 85027; 87040; 87086; 87651; 93268; 94640; 94762; 96365; 96374; 96375; 99285; G0378; Q3014; J1650; J2270; J2405; J2543; A9270-GY

== ENCOUNTER 2023-10-08 23:15 | Observation (INO) | payer MEDICARE ==
[2023-10-08 23:49] LABS: Absolute Neutrophil Ct (ANC) 11.48 x10^3/uL (1.56-6.13); BASOPHIL % 0.1 % (0.1-1.2); Basophil (Absolute #) 0.01 x10^3/uL (0.01-0.08); Eosinophil (Absolute #) 0 x10^3/uL (0.04-0.36); Hematocrit 42.6 % (34.1-44.9); Hemoglobin 13.7 g/dL (11.2-15.7); IMMATURE GRAN # 0.06 x10^3u/L (0.001-0.031); IMMATURE GRAN % 0.5 % (0.001-0.429); Lymphocyte (Absolute #) 0.48 x10^3/uL (1.18-3.74); Lymphocytes % 3.9 % (19.3-51.7); Mean Cell Volume 90.6 fL (79.4-94.8); Mean Corpuscular Hemoglobin 29.1 pg (25.6-32.2); Mean Corpuscular Hgb Concent. 32.2 g/dL (32.2-35.5); Mean Platelet Volume 9.2 fL (9.4-12.3); Monocyte (Absolute #) 0.31 x10^3/uL (0.24-0.86); Monocytes % 2.5 % (4.7-12.5); Platelet Count 259 x10^3/uL (182-369); Red Cell Distribution Width 12.9 % (11.7-14.4); White Blood Count 12.3 x10^3/uL (3.98-10.04)
[2023-10-09 00:02] LABS: ALBUMIN 4.2 g/dL (3.5-5.0); ANION GAP 14.1 MEQ/L (5-15); BILIRUBIN,TOTAL 0.7 mg/dL (0.2-1.3); Creatinine 1 0.89 mg/dL (0.52-1.04); EST GLOMERULAR FILTRATION RATE 64.7 ML/MIN; Potassium 4.2 mmol/L (3.5-5.1); Total Protein 7.1 g/dL (6.3-8.2)
--- NOTE | 2023-10-09 00:07 | ERPHSYRPT ---
- History of Present Illness Time Seen by Provider: 10/08/23 23:35 Historian: patient, family Exam Limitations: no limitations Patient Subjective Stated Complaint: lower abd cramping and nausea since 1200. 1 episode of vomiting. 1 episode of diarrhea Triage Nursing Assessment: pt ambulatory to bed from wheelchair with stand by assist, pt alert and oriented x3, skin pwd, pt c/o lower abd cramping and nausea since noon today, pt holding lower abdomen during triage, pt on her normally 3 L NC for COPD Physician History: This is an 83-year-old white female patient of Dr. Ramos who presents with bilateral lower quadrant and suprapubic abdominal pain that began at approximately noon today and was associated with nausea. Patient had 1 episode of vomiting earlier today and 1 episode of diarrheal stool. Patient had labs drawn this morning and I reviewed the outpatient labs that were drawn at 846 on the morning of 10/08/2023. Patient has a history of diabetes, gastroesophageal reflux disease, hyperlipidemia, hypertension and COPD that is oxygen dependent at 3 L of oxygen via nasal cannula. Patient denies chest pain at this time. Patient denies shortness of breath. Timing/Duration: today Activities at Onset: none Quality: cramping Abdominal Pain Onset Location: suprapubic Pain Radiation: no radiation Severity of Pain-Max: moderate Severity of Pain-Current: moderate Modifying Factors: Improves With: vomiting (Lungs) Associated Symptoms: diarrhea (Once), loss of appetite, nausea Previous symptoms: no prior history, no recent treatment Allergies/Adverse Reactions: metformin Adverse Reaction (Verified 10/08/23 23:23) Sick to stomach, headache Home Medications: Albuterol 2.5 mg/3 ml Neb [Proventil 2.5 mg/3 ml Neb] 2.5 mg IH BID 03/08/19 [History] Albuterol 8 gm Mdi Hfa [Ventolin Hfa MDI] 8 gm IH QIDPRN PRN 03/08/19 [History] Lovastatin 20 mg PO HS 03/21/19 [History] Aspirin EC 325 mg [Ecotrin 325 MG] 325 mg PO DAILY 03/22/19 [History] Calcium Carbonate/Vitamin D3 [Calcium 600-Vit D3 400 Caplet] 1 each PO BID 08/22/19 [History] Fluticasone/Umeclidin/Vilanter [Trelegy Ellipta 100-62.5-25] 1 inh PO DAILY 04/02/21 [History] Metoprolol Succinate 25 mg Xl* [Toprol-Xl 25MG Tablets] 25 mg PO DAILY 04/02/21 [History] Omeprazole 40 mg PO DAILY 04/02/21 [History] Amlodipine Besylate 5 mg [Norvasc 5 mg] 5 mg PO DAILY 07/13/23 [History] Empagliflozin [Jardiance] 25 mg PO DAILY 07/13/23 [History] Semaglutide [Rybelsus] 7 mg PO DAILY 07/13/23 [History] Hx Tetanus, Diphtheria Vaccination/Date Given: Yes Hx Influenza Vaccination/Date Given: Yes Hx Pneumococcal Vaccination/Date Given: Yes Immunizations Up to Date: Yes Travel Risk - International Travel Have you traveled outside of the country in past 3 weeks: No - Emerging Infectious Disease Are you exhibiting symptoms associated with any current EIDs: Yes Symptoms: Abdominal Pain - Review of Systems Constitutional: No Symptoms Eyes: No Symptoms Ears, Nose, & Throat: No Symptoms Respiratory: No Symptoms Cardiac: No Symptoms Abdominal/Gastrointestinal: Abdominal Pain, Nausea, Vomiting (Once earlier today), Diarrhea (1 episode earlier today), Appetite Changes Genitourinary Symptoms: No Symptoms Musculoskeletal: No Symptoms Skin: No Symptoms Neurological: No Symptoms Psychological: No Symptoms Endocrine: No Symptoms Hematologic/Lymphatic: No Symptoms Immunological/Allergic: No Symptoms All Other Systems: Reviewed and Negative - Past Medical History Pertinent Past Medical History: Yes Neurological History: No Pertinent History ENT History: No Pertinent History Cardiac History: High Cholesterol, Hypertension Respiratory History: COPD Endocrine Medical History: Diabetes Type II, Other Musculoskeletal History: Arthritis, Fractures, Osteoporosis GI Medical History: Diverticulitis, GERD, Gallbladder Disease History: No Pertinent History Psycho-Social History: No Pertinent History Female Reproductive Disorders: No Pertinent History Other Medical History: seasonal allergies, Post Covid April 2020, ankle fracture - Past Surgical History Past Surgical History: Yes Neuro Surgical History: No Pertinent History Cardiac: No Pertinent History Respiratory: No Pertinent History Gastrointestinal: Appendectomy, Cholecystectomy, Other Genitourinary: No Pertinent History Musculoskeletal: No Pertinent History Female Surgical History: Other Other Surgical History: diagnostic open abdominal, ankle fx and surgery, partial hysterectomy - Social History Smoking Status: Former smoker How long have you smoked: 65 years Exposure to second hand smoke: No Drug Use: none Patient Lives Alone: No - Social Determinants of Health Will the patient participate in the screening: Yes Do you worry about a steady place to live?: No Do you have any problems with any of the following?: No known problems In the past 12 months,have you had to go without utilities?: No Transportation Issues: No Has anyone in your support network made you feel unsafe?: No Have you or anyone in your house had to go without enough: No - Nursing Vital Signs Nursing Vital Signs: Initial Vital Signs Temperature 98.2 F 10/08/23 23:25 Pulse Rate 98 H 10/08/23 23:25 Respiratory Rate 18 10/08/23 23:25 Blood Pressure 139/80 10/08/23 23:25 O2 Sat by Pulse Oximetry 98 10/08/23 23:25 Pain Scale Pain Intensity 9 - Physical Exam General Appearance: no apparent distress, alert, anxiety, thin Eye Exam: PERRL/EOMI, eyes nml inspection Ears, Nose, Throat Exam: normal ENT inspection, moist mucous membranes Neck Exam: normal inspection, non-tender, supple, full range of motion Respiratory Exam: normal breath sounds, lungs clear, airway intact, No chest tenderness, No respiratory distress Cardiovascular Exam: regular rate/rhythm, normal heart sounds, normal peripheral pulses Gastrointestinal/Abdomen Exam: soft, normal bowel sounds, No tenderness Pelvic Exam: not done Rectal Exam: not done Back Exam: normal inspection, normal range of motion, No CVA tenderness, No vertebral tenderness Extremity Exam: normal inspection, normal range of motion, pelvis stable Neurologic Exam: alert, oriented x 3, cooperative, 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, normal mood/affect Skin Exam: normal color, warm, No dry Lymphatic Exam: adenopathy SpO2 Interpretation: normal SpO2: 98 O2 Delivery: Room Air - Course Nursing assessment & vital signs reviewed: Yes Ordered Tests: Active Orders 24 hr Category Date Time Status IV Insertion STAT Care 10/08/23 23:28 Active ABDOMEN AND PELVIS W/0 CONTRAS [CT] Stat Exams 10/08/23 23:28 Completed AMYLASE Stat Lab 10/08/23 23:48 Completed CBC W DIFF Stat Lab 10/08/23 23:48 Completed CMP Stat Lab 10/08/23 23:48 Completed LIPASE Stat Lab 10/08/23 23:48 Completed Lactic Acid Stat Lab 10/08/23 23:48 Completed UA W/RFX UR CULTURE Stat Lab 10/09/23 00:25 Completed Medication Summary Generic Name Dose Route Start Last Admin Trade Name Freq PRN Reason Stop Dose Admin Levofloxacin/Dextrose 500 mg in 100 mls @ 100 mls/hr 10/09/23 00:17 Levofloxacin 500mg/100ml D5w IV 10/09/23 01:16 STAT STA Sodium Chloride 500 mls @ 500 mls/hr 10/09/23 00:19 10/09/23 00:37 Sodium Chloride 0.9% 500 Ml IV 10/09/23 01:18 500 mls/hr .Q1H ONE Administration Discontinued Medications Generic Name Dose Route Start Last Admin Trade Name Freq PRN Reason Stop Dose Admin Metronidazole 500 mg in 100 mls @ 200 mls/hr 10/09/23 00:17 10/09/23 00:38 Flagyl 500 Mg Ivpb IV 10/09/23 00:46 200 mls/hr STAT STA 200 mls/hr Administration Metronidazole Confirm 10/09/23 00:35 Flagyl 500 Mg Ivpb Administered 10/09/23 00:36 Dose 500 mg in 100 mls @ ud IV .STK-MED ONE Sodium Chloride Confirm 10/09/23 00:35 Sodium Chloride 0.9% 500 Ml Administered 10/09/23 00:36 Dose 500 mls @ ud IV .STK-MED ONE Morphine Sulfate 2 mg 10/09/23 00:32 10/09/23 00:37 Morphine Sulfate 2 Mg/Ml Inj IV 10/09/23 00:33 2 mg STAT ONE Administration Morphine Sulfate Confirm 10/09/23 00:34 Morphine Sulfate 2 Mg/Ml Inj Administered 10/09/23 00:35 Dose 2 mg .ROUTE .STK-MED ONE Ondansetron HCl 4 mg 10/09/23 00:32 10/09/23 00:37 Ondansetron Hcl 4 Mg/2 Ml Vial IV 10/09/23 00:33 4 mg STAT ONE Administration Ondansetron HCl Confirm 10/09/23 00:34 Ondansetron Hcl 4 Mg/2 Ml Vial Administered 10/09/23 00:35 Dose 4 mg .ROUTE .STK-MED ONE Lab/Rad Data: Laboratory Result Diagrams 10/08/23 23:48 10/08/23 23:48 Laboratory Results 10/09/23 10/08/23 10/08/23 Range/Units 00:25 23:48 23:48 WBC (3.98-10.04) x10^3/uL RBC (3.93-5.22) x10^6/uL Hgb (11.2-15.7) g/dL Hct (34.1-44.9) % MCV (79.4-94.8) fL MCH (25.6-32.2) pg MCHC (32.2-35.5) g/dL RDW (11.7-14.4) % Plt Count (182-369) x10^3/uL MPV (9.4-12.3) fL Gran % (34.0-71.1) % Immature Gran % (Auto) (0.001-0.429) % Nucleat RBC Rel Count (0.00-0.2) % Eos # (Auto) (0.04-0.36) x10^3/uL Immature Gran # (Auto) (0.001-0.031) x10^3u/L Absolute Lymphs (auto) (1.18-3.74) x10^3/uL Absolute Monos (auto) (0.24-0.86) x10^3/uL Absolute Nucleated RBC (0.00-0.012) x10^3u/L Lymphocytes % (19.3-51.7) % Monocytes % (4.7-12.5) % Eosinophils % (0.7-5.8) % Basophils % (0.1-1.2) % Absolute Granulocytes (1.56-6.13) x10^3/uL Basophils # (0.01-0.08) x10^3/uL Sodium 139 (135-145) mmol/L Potassium 4.2 (3.5-5.1) mmol/L Chloride 103 (98-107) mmol/L Carbon Dioxide 27 (22-30) mmol/L Anion Gap 14.1 (5-15) MEQ/L BUN 20 H (7-17) mg/dL Creatinine 0.89 (0.52-1.04) mg/dL Estimated GFR 64.7 ML/MIN Glucose 264 H (74-106) mg/dL Lactic Acid 1.5 (0.4-2.0) Calcium 10.0 (8.4-10.2) mg/dL Total Bilirubin 0.70 (0.2-1.3) mg/dL AST 24 (14-36) U/L ALT 19 (0-35) U/L Alkaline Phosphatase 108 (38-126) U/L Serum Total Protein 7.1 (6.3-8.2) g/dL Albumin 4.2 (3.5-5.0) g/dL Amylase 67 (30-110) U/L Lipase 28 (23-300) U/L Urine Color Yellow (Yellow) Urine Appearance Clear (Clear) Urine pH 6.5 (4.6-8.0) Ur Specific [place] 1.025 (1.005-1.030) Urine Protein Negative (Negative) Urine Glucose (UA) >=1000 A (Negative) mg/dL Urine Ketones 15 A (Negative) Urine Blood Negative (Negative) Urine Nitrite Negative (Negative) Urine Bilirubin Negative (Negative) Urine Urobilinogen 0.2 (0.2) mg/dL Ur Leukocyte Esterase Negative (Negative) U Hyaline Cast (Auto) NONE SEEN (0-2) /LPF Urine Microscopic RBC 0-2 (0-5) /HPF Urine Microscopic WBC 0-2 (0-5) /HPF Ur Epithelial Cells None Seen (None Seen) /HPF Urine Bacteria None Seen (None Seen) /HPF Urine Culture Reflexed NO (NO) 10/08/23 Range/Units 23:48 WBC 12.3 H (3.98-10.04) x10^3/uL RBC 4.70 (3.93-5.22) x10^6/uL Hgb 13.7 (11.2-15.7) g/dL Hct 42.6 (34.1-44.9) % MCV 90.6 (79.4-94.8) fL MCH 29.1 (25.6-32.2) pg MCHC 32.2 (32.2-35.5) g/dL RDW 12.9 (11.7-14.4) % Plt Count 259 (182-369) x10^3/uL MPV 9.2 L (9.4-12.3) fL Gran % 93.0 H (34.0-71.1) % Immature Gran % (Auto) 0.5 H (0.001-0.429) % Nucleat RBC Rel Count 0.0 (0.00-0.2) % Eos # (Auto) 0 L (0.04-0.36) x10^3/uL Immature Gran # (Auto) 0.06 H (0.001-0.031) x10^3u/L Absolute Lymphs (auto) 0.48 L (1.18-3.74) x10^3/uL Absolute Monos (auto) 0.31 (0.24-0.86) x10^3/uL Absolute Nucleated RBC 0.00 (0.00-0.012) x10^3u/L Lymphocytes % 3.9 L (19.3-51.7) % Monocytes % 2.5 L (4.7-12.5) % Eosinophils % 0.0 L (0.7-5.8) % Basophils % 0.1 (0.1-1.2) % Absolute Granulocytes 11.48 H (1.56-6.13) x10^3/uL Basophils # 0.01 (0.01-0.08) x10^3/uL Sodium (135-145) mmol/L Potassium (3.5-5.1) mmol/L Chloride (98-107) mmol/L Carbon Dioxide (22-30) mmol/L Anion Gap (5-15) MEQ/L BUN (7-17) mg/dL Creatinine (0.52-1.04) mg/dL Estimated GFR ML/MIN Glucose (74-106) mg/dL Lactic Acid (0.4-2.0) Calcium (8.4-10.2) mg/dL Total Bilirubin (0.2-1.3) mg/dL AST (14-36) U/L ALT (0-35) U/L Alkaline Phosphatase (38-126) U/L Serum Total Protein (6.3-8.2) g/dL Albumin (3.5-5.0) g/dL Amylase (30-110) U/L Lipase (23-300) U/L Urine Color (Yellow) Urine Appearance (Clear) Urine pH (4.6-8.0) Ur Specific [place] (1.005-1.030) Urine Protein (Negative) Urine Glucose (UA) (Negative) mg/dL Urine Ketones (Negative) Urine Blood (Negative) Urine Nitrite (Negative) Urine Bilirubin (Negative) Urine Urobilinogen (0.2) mg/dL Ur Leukocyte Esterase (Negative) U Hyaline Cast (Auto) (0-2) /LPF Urine Microscopic RBC (0-5) /HPF Urine Microscopic WBC (0-5) /HPF Ur Epithelial Cells (None Seen) /HPF Urine Bacteria (None Seen) /HPF Urine Culture Reflexed (NO) - Progress Progress: improved, pain not gone completely Progress Note: 10/09/23 00:04 My medical decision today and the assignment of moderate complexity to this patient's medical issue today was based on review of the patient's past medical history, review of the patient's medication list, review of the patient's drug allergy list, history present illness and physical findings on examination. The workup in this patient includes placement of intravenous line, infusion of normal saline solution, CBC, CMP, urinalysis, lactic acid level, amylase and lipase level, CT scan of the abdomen pelvis without contrast. 10/09/23 00:08 Clinical diagnosis includes but is not limited to pancreatitis, ureteroli thiasis, pyelonephritis, colitis, urinary tract infection, sigmoid diverticulitis 10/09/23 00:19 CT scan of the abdomen pelvis was interpreted by the radiologist. He provided me with a verbal report that shows bilateral adrenal tumors that may be adenomas and should be further worked up.. In addition patient has evidence for sigmoid diverticulitis without complication/perforations or abscess present. We are awaiting the final dictated and transcribed report. 10/09/23 00:33 I interpreted the patient's laboratory data results. Patient has a mild leukocytosis. Urinalysis is pending. CT scan of the abdomen pelvis without contrast was interpreted by the radiologist and I reviewed the impression. Pression states there is no acute appendicitis present. There is mild distal descending and proximal sigmoid diverticulitis without complications. There is also evidence of bilateral adrenal adenomas 10/09/23 01:[address] Monroe, the telehospitalist on-call at this time. I reviewed the patient past medical history, presenting complaint, physical findings, laboratory and radiographic study results. Will place this patient in observation and provide the patient with intravenous antibiotics, IV fluid, pain control and repeat labs in the morning. We also provide her with a sliding scale insulin coverage. Counseled pt/family regarding: lab results, diagnosis, rad results Medical Desision Making - Independent Historian Additional History obtained from: Family - Diagnostic Testing Diagnostic test were ordered, analyzed, and reviewed by me: Yes Radiological Interpretation: Reviewed by me, Teleradiologist Report - Risk of complications The pt has a high risk of morbidity or mortality based on: Decision regarding hospitilization or escalation of hosp level of care - Departure Departure Disposition: Observation Clinical Impression: Sigmoid diverticulitis, Adrenal adenoma Condition: Stable Critical Care Time: No Referrals: KELLY RAMOS DO [Primary Care Provider] - Follow up/PCP as directed Additional Instructions: Drink plenty of clear liquids. Do not advance your diet until you are having no pain symptoms. Take your antibiotics and other medications as prescribed. Call your primary care provider today, 10/09/2023, to make arranges for follow-up appointment to be seen in the next 3 to 5 days. Prescriptions: Metronidazole 500 mg [Flagyl 500 MG] 500 mg PO TID #21 tablet
--- NOTE | 2023-10-09 00:26 | XRAY ---
CLINICAL HISTORY: ABD pain COMPARISON: TECHNIQUE: A CT scan of the abdomen and pelvis was performed without IV contrast. Coronal and sagittal reconstructive images were also obtained. One of the following dose-reduction techniques was utilized for this exam. Automated exposure control, adjustment of the mA and/or kV according to patient size, and use of iterative reconstruction. FINDINGS: Limited organ parenchymal evaluation within the limitations of non-contrast study. Sections of the lower thorax show a sliding hiatus hernia. 6 mm calcified nodule in the superior segment of the right lower lobe. Abdomen: Colonic diverticulosis noted with mild fat stranding around the distal descending and proximal sigmoid colon, likely representing acute diverticulitis. No evidence of perforation at the present study. The liver is of average size. No focal or diffuse parenchymal abnormality. The portal vein, intrahepatic biliary radicals and the bile ducts are normal. The gallbladder is distended. There is no evidence of wall thickening/ pericholecystic collection. The spleen, and pancreas are unremarkable. A bilateral hypodense adrenal nodule seen, measuring 15 mm on right side and 11 mm on left side, possibly adenomas. The kidneys are normal in size and shape. No calculi or hydronephrosis. Renal vascular calcification noted. 30mm right renal cortical cyst at the upper pole. The ascending colon, the transverse colon and visualized small bowel loops are unremarkable. There is no CT evidence of acute appendicitis. The abdominal aorta shows atherosclerotic changes with calcified plaques with alternating areas of focal dilatations at the renal level. Pelvis: The urinary bladder is unremarkable. Hypodense attenuation seen in the uterine cavity, possible endometrial thickening/collection. No adnexal lesions. The lumbar spine shows moderate degenerative changes. Age-indeterminate osteoporotic collapse of T8 and T9 vertebral bodies noted. Diffuse osteopaenic changes noted. IMPRESSION: 1. Limited organ parenchymal evaluation within the limitations of non-contrast study. 2. Colonic diverticulosis with mild fat stranding around the distal descending and proximal sigmoid colon, likely representing acute diverticulitis. No evidence of perforation at present study. 3. A bilateral hypodense adrenal nodule seen, measuring 15 mm on the right side and 11 mm on the left side, possibly adenomas. 4. Hypodense attenuation in the uterine cavity, possible endometrial thickening/collection. Recommended non-emergent ultrasound correlation 5. Hiatus hernia. 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 Electronically Signed by: Jada Almanzar MD. (10/09/2023 00:21:19 EDT)
[2023-10-09] MEDS ORDERED: MORPHINE SULFATE 2 MG INJ ONE (00:34)
[2023-10-09] MEDS ORDERED: Zofran 4 MG/2 ML VIAL ONE (00:34)
[2023-10-09] MEDS ORDERED: FLAGYL 500 MG IVPB 500 MG/100 ML BAG IV ONE (00:35)
[2023-10-09] MEDS ORDERED: Sodium Chloride 0.9% 500 ML 500 ML IV ONE (00:35)
[2023-10-09 00:37] LABS: Appearance Clear (Clear); Bacteria None Seen /HPF (None Seen); Bilirubin Negative (Negative); Blood Negative (Negative); Epithelial Cells None Seen /HPF (None Seen); Glucose, Urine >=1000 mg/dL (Negative); Hyaline Casts NONE SEEN /LPF (0-2); Ketones 15 (Negative); Leukocyte Esterase Negative (Negative); Nitrite Negative (Negative); Ph 6.5 (4.6-8.0); Protein,Urine Dip Negative (Negative); RBC 0-2 /HPF (0-5); Specific Gravity 1.025 (1.005-1.030); Urobilinogen 0.2 mg/dL (0.2); WBC 0-2 /HPF (0-5)
[2023-10-09] MEDS: Zofran 4 MG/2 ML VIAL IV ONE (00:37)
[2023-10-09] MEDS: MORPHINE SULFATE 2 MG INJ IV ONE (00:37)
[2023-10-09] MEDS: Sodium Chloride 0.9% 500 ML 500 ML IV ONE (00:37)
[2023-10-09] MEDS: FLAGYL 500 MG IVPB 500 MG/100 ML BAG IV STA (00:38)
[2023-10-09 00:42] LABS: ADD URINE CULTURE? NO (NO)
[2023-10-09] MEDS ORDERED: Levofloxacin 500MG/100ML D5W 500 MG/100 ML BAG IV ONE (01:04)
[2023-10-09] MEDS: Levofloxacin 500MG/100ML D5W 500 MG/100 ML BAG IV STA (01:18)
--- NOTE | 2023-10-09 01:33 | PCM.HP ---
History of Present Illness - Chief Complaint Chief Complaint: abdominal pain Date: 10/09/23 History of Present Illness: 83-year-old woman with a history of COPD on 3 L oxygen, diabetes, hypertension, presents with 1 day of abdominal pain. Patient noted onset today of left lower quadrant abdominal pain, sharp, cramping/stabbing in nature, associated with one episode of vomiting and one of diarrhea. No fevers, cough, chest pain, dyspnea, or sick contacts. Of note, patient was admitted with similar symptoms in July of this year and was found to have diverticulitis. - Review of Systems Constitutional: No Fever, No Chills, No Malaise Eyes: No Vision Changes Ears, Nose, & Throat: No Nose Congestion, No Throat Pain Respiratory: Short Of Breath (unchanged from baseline), No Cough, No Wheezing Cardiac: No Chest Pain, No Edema, No PND Abdominal/Gastrointestinal: Abdominal Pain, Nausea, Diarrhea, No Vomiting, No Hematochezia, No Melena Genitourinary Symptoms: No Dysuria, No Frequency Skin: No Rash, No Skin Lesions Neurological: No Focal Weakness, No Headache, No Sensory Changes Medications & Allergies Home Medications: Home Medication List Albuterol 2.5 mg/3 ml Neb [Proventil 2.5 mg/3 ml Neb] 2.5 mg IH BID 03/08/19 [History Confirmed 10/09/23] Albuterol 8 gm Mdi Hfa [Ventolin Hfa MDI] 8 gm IH QIDPRN PRN 03/08/19 [History Confirmed 10/09/23] Lovastatin 20 mg PO DAILY 03/21/19 [History Confirmed 10/09/23] Aspirin EC 325 mg [Ecotrin 325 MG] 325 mg PO DAILY 03/22/19 [History Confirmed 10/09/23] Calcium Carbonate/Vitamin D3 [Calcium 600-Vit D3 400 Caplet] 1 each PO BID 08/22/19 [History Confirmed 10/09/23] Fluticasone/Umeclidin/Vilanter [Trelegy Ellipta 100-62.5-25] 1 inh PO DAILY 04/02/21 [History Confirmed 10/09/23] Omeprazole 40 mg PO DAILY 04/02/21 [History Confirmed 10/09/23] Amlodipine Besylate 5 mg [Norvasc 5 mg] 5 mg PO DAILY 07/13/23 [History Confirmed 10/09/23] Empagliflozin [Jardiance] 25 mg PO DAILY 07/13/23 [History Confirmed 10/09/23] Semaglutide [Rybelsus] 3.5 mg PO DAILY 07/13/23 [History Confirmed 10/09/23] Lisinopril 20 mg [Zestril 20 MG] 20 mg PO BID 10/09/23 [History Confirmed 10/09/23] Metoprolol Succinate 25 mg Xl* [Toprol-Xl 25MG Tablets] 25 mg PO DAILY 10/09/23 [History Confirmed 10/09/23] Metronidazole 500 mg [Flagyl 500 MG] 500 mg PO TID #21 tablet 10/09/23 [Rx] Montelukast Sodium [Singulair] 10 mg PO DAILY 10/09/23 [History Confirmed 10/09/23] Allergies/Adverse Reactions: Allergies Allergy/AdvReac Type Severity Reaction Status Date / Time metformin AdvReac Verified 10/08/23 23:23 - Past Medical History Past Medical History: Yes Neurological History: No Pertinent History ENT History: No Pertinent History Cardiac History: High Cholesterol, Hypertension Respiratory History: COPD Endocrine Medical History: Diabetes Type II, Other Musculoskelatal History: Arthritis, Fractures, Osteoporosis GI Medical History: Diverticulitis, GERD, Gallbladder Disease History: No Pertinent History Pyscho-Social History: No Pertinent History Reproductive Disorders: No Pertinent History Comment: seasonal allergies, Post Covid April 2020, ankle fracture - Past Surgical History Past Surgical History: Yes Neuro Surgical History: No Pertinent History Cardiac History: No Pertinent History Respiratory Surgery: No Pertinent History GI Surgical History: Appendectomy, Cholecystectomy, Other Genitourinary Surgical Hx: No Pertinent History Musculskeletal Surgical Hx: No Pertinent History Female Surgical History: Other Other Surgical History: diagnostic open abdominal, ankle fx and surgery, partial hysterectomy Significant Family History: no pertinent family hx - Social History Smoking Status: Former smoker How long have you smoked: 65 years Exposure to second hand smoke: No Alcohol: None Drug Use: none - Social Determinants of Health Will the patient participate in the screening: Yes Do you worry about a steady place to live?: No Do you have any problems with any of the following?: No known problems In the past 12 months,have you had to go without utilities?: No Have you or anyone in your house had to go without enough: No Transportation Issues: No Has anyone in your support network made you feel unsafe?: No - Physical Exam Vital Signs: Vital Signs - 24 hr Temp Pulse Resp BP BP Pulse Ox 10/09/23 01:10 98 10/09/23 01:00 94 H 20 146/76 96 10/09/23 00:30 93 H 16 151/84 97 10/08/23 23:25 98.2 F 87 17 139/80 139/80 98 GEN: Lying in bed in no acute distress NEURO: No focal deficits CV: Regular rate & rhythm, no murmurs, no edema PULM: Clear to auscultation bilaterally, no work of breathing, on 3 L nasal cannula ABD: Diffusely tender to palpation without guarding or rebound PSYCH: Alert, oriented x3 Results - Labs Lab/Micro Results: Lab Results-Last 24 Hours 10/08/23 10/08/23 10/08/23 Range/Units 23:48 23:48 23:48 WBC 12.3 H (3.98-10.04) x10^3/uL RBC 4.70 (3.93-5.22) x10^6/uL Hgb 13.7 (11.2-15.7) g/dL Hct 42.6 (34.1-44.9) % MCV 90.6 (79.4-94.8) fL MCH 29.1 (25.6-32.2) pg MCHC 32.2 (32.2-35.5) g/dL RDW 12.9 (11.7-14.4) % Plt Count 259 (182-369) x10^3/uL MPV 9.2 L (9.4-12.3) fL Gran % 93.0 H (34.0-71.1) % Immature Gran % (Auto) 0.5 H (0.001-0.429) % Nucleat RBC Rel Count 0.0 (0.00-0.2) % Eos # (Auto) 0 L (0.04-0.36) x10^3/uL Immature Gran # (Auto) 0.06 H (0.001-0.031) x10^3u/L Absolute Lymphs (auto) 0.48 L (1.18-3.74) x10^3/uL Absolute Monos (auto) 0.31 (0.24-0.86) x10^3/uL Absolute Nucleated RBC 0.00 (0.00-0.012) x10^3u/L Lymphocytes % 3.9 L (19.3-51.7) % Monocytes % 2.5 L (4.7-12.5) % Eosinophils % 0.0 L (0.7-5.8) % Basophils % 0.1 (0.1-1.2) % Absolute Granulocytes 11.48 H (1.56-6.13) x10^3/uL Basophils # 0.01 (0.01-0.08) x10^3/uL Sodium 139 (135-145) mmol/L Potassium 4.2 (3.5-5.1) mmol/L Chloride 103 (98-107) mmol/L Carbon Dioxide 27 (22-30) mmol/L Anion Gap 14.1 (5-15) MEQ/L BUN 20 H (7-17) mg/dL Creatinine 0.89 (0.52-1.04) mg/dL Estimated GFR 64.7 ML/MIN Glucose 264 H (74-106) mg/dL Lactic Acid 1.5 (0.4-2.0) Calcium 10.0 (8.4-10.2) mg/dL Total Bilirubin 0.70 (0.2-1.3) mg/dL AST 24 (14-36) U/L ALT 19 (0-35) U/L Alkaline Phosphatase 108 (38-126) U/L Serum Total Protein 7.1 (6.3-8.2) g/dL Albumin 4.2 (3.5-5.0) g/dL Amylase 67 (30-110) U/L Lipase 28 (23-300) U/L Urine Color (Yellow) Urine Appearance (Clear) Urine pH (4.6-8.0) Ur Specific [place] (1.005-1.030) Urine Protein (Negative) Urine Glucose (UA) (Negative) mg/dL Urine Ketones (Negative) Urine Blood (Negative) Urine Nitrite (Negative) Urine Bilirubin (Negative) Urine Urobilinogen (0.2) mg/dL Ur Leukocyte Esterase (Negative) U Hyaline Cast (Auto) (0-2) /LPF Urine Microscopic RBC (0-5) /HPF Urine Microscopic WBC (0-5) /HPF Ur Epithelial Cells (None Seen) /HPF Urine Bacteria (None Seen) /HPF Urine Culture Reflexed (NO) 10/09/23 Range/Units 00:25 WBC (3.98-10.04) x10^3/uL RBC (3.93-5.22) x10^6/uL Hgb (11.2-15.7) g/dL Hct (34.1-44.9) % MCV (79.4-94.8) fL MCH (25.6-32.2) pg MCHC (32.2-35.5) g/dL RDW (11.7-14.4) % Plt Count (182-369) x10^3/uL MPV (9.4-12.3) fL Gran % (34.0-71.1) % Immature Gran % (Auto) (0.001-0.429) % Nucleat RBC Rel Count (0.00-0.2) % Eos # (Auto) (0.04-0.36) x10^3/uL Immature Gran # (Auto) (0.001-0.031) x10^3u/L Absolute Lymphs (auto) (1.18-3.74) x10^3/uL Absolute Monos (auto) (0.24-0.86) x10^3/uL Absolute Nucleated RBC (0.00-0.012) x10^3u/L Lymphocytes % (19.3-51.7) % Monocytes % (4.7-12.5) % Eosinophils % (0.7-5.8) % Basophils % (0.1-1.2) % Absolute Granulocytes (1.56-6.13) x10^3/uL Basophils # (0.01-0.08) x10^3/uL Sodium (135-145) mmol/L Potassium (3.5-5.1) mmol/L Chloride (98-107) mmol/L Carbon Dioxide (22-30) mmol/L Anion Gap (5-15) MEQ/L BUN (7-17) mg/dL Creatinine (0.52-1.04) mg/dL Estimated GFR ML/MIN Glucose (74-106) mg/dL Lactic Acid (0.4-2.0) Calcium (8.4-10.2) mg/dL Total Bilirubin (0.2-1.3) mg/dL AST (14-36) U/L ALT (0-35) U/L Alkaline Phosphatase (38-126) U/L Serum Total Protein (6.3-8.2) g/dL Albumin (3.5-5.0) g/dL Amylase (30-110) U/L Lipase (23-300) U/L Urine Color Yellow (Yellow) Urine Appearance Clear (Clear) Urine pH 6.5 (4.6-8.0) Ur Specific [place] 1.025 (1.005-1.030) Urine Protein Negative (Negative) Urine Glucose (UA) >=1000 A (Negative) mg/dL Urine Ketones 15 A (Negative) Urine Blood Negative (Negative) Urine Nitrite Negative (Negative) Urine Bilirubin Negative (Negative) Urine Urobilinogen 0.2 (0.2) mg/dL Ur Leukocyte Esterase Negative (Negative) U Hyaline Cast (Auto) NONE SEEN (0-2) /LPF Urine Microscopic RBC 0-2 (0-5) /HPF Urine Microscopic WBC 0-2 (0-5) /HPF Ur Epithelial Cells None Seen (None Seen) /HPF Urine Bacteria None Seen (None Seen) /HPF Urine Culture Reflexed NO (NO) - Radiology Impressions Radiology Exams & Impressions: Radiology Procedures Category Date Time Status ABDOMEN AND PELVIS W/0 CONTRAS [CT] Stat Exams 10/08/23 23:[address] abdomen/pelvis colonic diverticulosis with fat stranding around the distal descending and proximal sigmoid colon, consistent with acute diverticulitis. No evidence of perforation or abscess. Assessment/Plan (1) Sigmoid diverticulitis Current Visit: Yes Status: Acute Assessment & Plan: 83-year-old woman with a history of COPD, DM2, and hypertension, here with recurrent episode of acute diverticulitis. ## Acute diverticulitis without evidence of perforation or abscess. Records from prior hospitalization reviewed, and appears to be in roughly the same area as her prior diverticulitis. N.p.o. Start Zosyn Follow-up blood cultures ## Type 2 diabetes on Jardiance and semaglutide at home. Hold oral meds for now as NPO Low-dose sliding scale insulin ## COPD, chronic hypoxic respiratory failure patient is at her baseline oxygen requirements of 3 L. DuoNeb q.4 hours PRN Resume home Singulair ## Hypertension blood pressure well-controlled Continue lisinopril 20 BID, Norvasc 5 CODE STATUS: Full code Diet: N.p.o. Prophylaxis: Lovenox Code(s): K57.32 - DVTRCLI OF LG INT W/O PERFORATION OR ABSCESS W/O BLEEDING Telemedicine Encounter - Telemedicine Encounter Telemedicine Encounter: "The entirety of this encounter was performed via Telemedicine" This visit was performed using real-time audio and video connection between my location and thepatients locationwith the assistance of a surrogateat the patients location. Written or verbal consent was obtained from the patient/guardian to perform this visit [facility]. Any patient questions regarding the telemedicine interaction were answered.
[2023-10-09 01:36] LABS: Slide Review 1 YES
[2023-10-09] MEDS ORDERED: Zofran 4 MG/2 ML VIAL IV PRN (01:46)
[2023-10-09] MEDS ORDERED: HUMALOG SQ PRN (01:46)
[2023-10-09] MEDS: Sodium Chloride 0.9% 1000 ML 1,000 ML IV SCH (02:19)
[2023-10-09] MEDS ORDERED: PIPERACILLIN/TAZOBACTAM IV ONE (04:39)
[2023-10-09] MEDS ORDERED: Sodium Chloride 100ML MINI-BAG PLUS 100 ML IV ONE (04:39)
[2023-10-09] MEDS: MORPHINE SULFATE 2 MG INJ IV PRN (04:40)
[2023-10-09 04:48] LABS: Absolute Neutrophil Ct (ANC) 11.07 x10^3/uL (1.56-6.13); BASOPHIL % 0.2 % (0.1-1.2); Basophil (Absolute #) 0.03 x10^3/uL (0.01-0.08); Eosinophil (Absolute #) 0 x10^3/uL (0.04-0.36); Hemoglobin 12.9 g/dL (11.2-15.7); IMMATURE GRAN # 0.05 x10^3u/L (0.001-0.031); IMMATURE GRAN % 0.4 % (0.001-0.429); Lymphocyte (Absolute #) 0.83 x10^3/uL (1.18-3.74); Lymphocytes % 6.5 % (19.3-51.7); Mean Cell Volume 90.5 fL (79.4-94.8); Mean Corpuscular Hemoglobin 29.2 pg (25.6-32.2); Mean Corpuscular Hgb Concent. 32.3 g/dL (32.2-35.5); Mean Platelet Volume 9.3 fL (9.4-12.3); Monocyte (Absolute #) 0.72 x10^3/uL (0.24-0.86); Monocytes % 5.7 % (4.7-12.5); Neutrophil % 87.2 % (34.0-71.1); Platelet Count 249 x10^3/uL (182-369); Red Blood Count 4.42 x10^6/uL (3.93-5.22); White Blood Count 12.7 x10^3/uL (3.98-10.04)
[2023-10-09 05:30] LABS: ALBUMIN 3.7 g/dL (3.5-5.0); ANION GAP 10.2 MEQ/L (5-15); BILIRUBIN,TOTAL 0.6 mg/dL (0.2-1.3); Calcium 9.4 mg/dL (8.4-10.2); Creatinine 1 0.78 mg/dL (0.52-1.04); EST GLOMERULAR FILTRATION RATE 75.8 ML/MIN; Potassium 4.4 mmol/L (3.5-5.1); Total Protein 6.5 g/dL (6.3-8.2)
[2023-10-09] MEDS: PIPERACILLIN/TAZOBACTAM 3.375 GM in Sodium Chloride 100ML MINI-BAG PLUS 100 ML IV SCH (05:57)
[2023-10-09] MEDS: DUONEB 0.5-3 MG/3 ml Neb IH SCH (06:48)
[2023-10-09] MEDS: TYLENOL 325 MG PO PRN (08:00)
[2023-10-09] MEDS: NORCO 5/325 MG PO PRN (08:45)
[2023-10-09] MEDS: ENOXAPARIN SODIUM SQ SCH (08:46)
--- NOTE | 2023-10-10 05:11 | PCM.DS ---
Discharge Summary Date of Admission: 10/09/23 01:38 Date of Discharge: 10/10/23 Admitting Physician: JOHN NÚÑEZ MD Primary Care Provider: KELLY RAMOS DO Allergies Allergies metformin Adverse Reaction (Verified 10/08/23 23:23) Sick to stomach, headache Hospital Summary - Hospital Course Hospital Course: 83-year-old woman with a history of COPD, DM2, and hypertension, admitted 10/09/23 with recurrent episode of acute diverticulitis. CT abdomen/pelvis colonic diverticulosis with fat stranding around the distal descending and proximal sigm oid colon, consistent with acute diverticulitis. No evidence of perforation or abscess. IP treatment with Zosyn. Discharge Note New Diagnosis:Diverticulitis New Medications: Augmentin Follow Up: PCP Results pending: Outpatient testing to order: Latest Assessment & Plan (1) Sigmoid diverticulitis Current Visit: Yes Status: Acute Assessment & Plan: 83-year-old woman with a history of COPD, DM2, and hypertension, here with recurrent episode of acute diverticulitis. ## Acute diverticulitis without evidence of perforation or abscess. Records from prior hospitalization reviewed, and appears to be in roughly the same area as her prior diverticulitis. N.p.o. Start Zosyn Follow-up blood cultures ## Type 2 diabetes on Jardiance and semaglutide at home. Hold oral meds for now as NPO Low-dose sliding scale insulin ## COPD, chronic hypoxic respiratory failure patient is at her baseline oxygen requirements of 3 L. DuoNeb q.4 hours PRN Resume home Singulair ## Hypertension blood pressure well-controlled Continue lisinopril 20 BID, Norvasc 5 I spent 35 minutes [id number] with the patient on the day of discharge performing discharge exam, discussing hospital stay and discharge instructions with patient and caregivers, preparation of discharge records, prescriptions & referral forms and addressing any questions/concerns the patient had as documented above. - Vitals & Intake/Output Vital Signs: Vital Signs Temperature 97.6 F 10/10/23 03:00 Pulse Rate 87 10/10/23 03:00 Respiratory Rate 15 10/10/23 03:00 Blood Pressure 117/65 10/10/23 03:00 O2 Sat by Pulse Oximetry 94 L 10/10/23 03:00 Intake & Output: Intake & Output 07/10/2310/08/23 10/09/23 10/10/23 11:59 11:59 11:59 11:59 Intake Total 0 280 Output Total 600 800 Balance -600 -520 Weight 79.7 kg - Lab Result Diagrams: 10/09/23 04:36 10/09/23 04:36 Lab Results-Last 24 Hrs: Lab Results-Last 24 Hours 10/09/23 10/09/23 10/09/23 Range/Units 04:36 04:36 04:45 WBC 12.7 H (3.98-10.04) x10^3/uL RBC 4.42 (3.93-5.22) x10^6/uL Hgb 12.9 (11.2-15.7) g/dL Hct 40.0 (34.1-44.9) % MCV 90.5 (79.4-94.8) fL MCH 29.2 (25.6-32.2) pg MCHC 32.3 (32.2-35.5) g/dL RDW 13.0 (11.7-14.4) % Plt Count 249 (182-369) x10^3/uL MPV 9.3 L (9.4-12.3) fL Gran % 87.2 H (34.0-71.1) % Immature Gran % (Auto) 0.4 (0.001-0.429) % Nucleat RBC Rel Count 0.0 (0.00-0.2) % Eos # (Auto) 0 L (0.04-0.36) x10^3/uL Immature Gran # (Auto) 0.05 H (0.001-0.031) x10^3u/L Absolute Lymphs (auto) 0.83 L (1.18-3.74) x10^3/uL Absolute Monos (auto) 0.72 (0.24-0.86) x10^3/uL Absolute Nucleated RBC 0.00 (0.00-0.012) x10^3u/L Lymphocytes % 6.5 L (19.3-51.7) % Monocytes % 5.7 (4.7-12.5) % Eosinophils % 0.0 L (0.7-5.8) % Basophils % 0.2 (0.1-1.2) % Absolute Granulocytes 11.07 H (1.56-6.13) x10^3/uL Basophils # 0.03 (0.01-0.08) x10^3/uL Sodium 139 (135-145) mmol/L Potassium 4.4 (3.5-5.1) mmol/L Chloride 105 (98-107) mmol/L Carbon Dioxide 28 (22-30) mmol/L Anion Gap 10.2 (5-15) MEQ/L BUN 19 H (7-17) mg/dL Creatinine 0.78 (0.52-1.04) mg/dL Estimated GFR 75.8 ML/MIN Glucose 166 H (74-106) mg/dL POC Glucometer (74 to 106) mg/dL Hemoglobin A1c 7.37 H (4.5-6.0) % Calcium 9.4 (8.4-10.2) mg/dL Total Bilirubin 0.60 (0.2-1.3) mg/dL AST 22 (14-36) U/L ALT 15 (0-35) U/L Alkaline Phosphatase 88 (38-126) U/L Serum Total Protein 6.5 (6.3-8.2) g/dL Albumin 3.7 (3.5-5.0) g/dL 10/09/23 10/09/23 10/09/23 Range/Units 05:49 07:27 11:17 WBC (3.98-10.04) x10^3/uL RBC (3.93-5.22) x10^6/uL Hgb (11.2-15.7) g/dL Hct (34.1-44.9) % MCV (79.4-94.8) fL MCH (25.6-32.2) pg MCHC (32.2-35.5) g/dL RDW (11.7-14.4) % Plt Count (182-369) x10^3/uL MPV (9.4-12.3) fL Gran % (34.0-71.1) % Immature Gran % (Auto) (0.001-0.429) % Nucleat RBC Rel Count (0.00-0.2) % Eos # (Auto) (0.04-0.36) x10^3/uL Immature Gran # (Auto) (0.001-0.031) x10^3u/L Absolute Lymphs (auto) (1.18-3.74) x10^3/uL Absolute Monos (auto) (0.24-0.86) x10^3/uL Absolute Nucleated RBC (0.00-0.012) x10^3u/L Lymphocytes % (19.3-51.7) % Monocytes % (4.7-12.5) % Eosinophils % (0.7-5.8) % Basophils % (0.1-1.2) % Absolute Granulocytes (1.56-6.13) x10^3/uL Basophils # (0.01-0.08) x10^3/uL Sodium (135-145) mmol/L Potassium (3.5-5.1) mmol/L Chloride (98-107) mmol/L Carbon Dioxide (22-30) mmol/L Anion Gap (5-15) MEQ/L BUN (7-17) mg/dL Creatinine (0.52-1.04) mg/dL Estimated GFR ML/MIN Glucose (74-106) mg/dL POC Glucometer 145 H 135 H 133 H (74 to 106) mg/dL Hemoglobin A1c (4.5-6.0) % Calcium (8.4-10.2) mg/dL Total Bilirubin (0.2-1.3) mg/dL AST (14-36) U/L ALT (0-35) U/L Alkaline Phosphatase (38-126) U/L Serum Total Protein (6.3-8.2) g/dL Albumin (3.5-5.0) g/dL 10/09/23 10/09/23 Range/Units 16:26 21:58 WBC (3.98-10.04) x10^3/uL RBC (3.93-5.22) x10^6/uL Hgb (11.2-15.7) g/dL Hct (34.1-44.9) % MCV (79.4-94.8) fL MCH (25.6-32.2) pg MCHC (32.2-35.5) g/dL RDW (11.7-14.4) % Plt Count (182-369) x10^3/uL MPV (9.4-12.3) fL Gran % (34.0-71.1) % Immature Gran % (Auto) (0.001-0.429) % Nucleat RBC Rel Count (0.00-0.2) % Eos # (Auto) (0.04-0.36) x10^3/uL Immature Gran # (Auto) (0.001-0.031) x10^3u/L Absolute Lymphs (auto) (1.18-3.74) x10^3/uL Absolute Monos (auto) (0.24-0.86) x10^3/uL Absolute Nucleated RBC (0.00-0.012) x10^3u/L Lymphocytes % (19.3-51.7) % Monocytes % (4.7-12.5) % Eosinophils % (0.7-5.8) % Basophils % (0.1-1.2) % Absolute Granulocytes (1.56-6.13) x10^3/uL Basophils # (0.01-0.08) x10^3/uL Sodium (135-145) mmol/L Potassium (3.5-5.1) mmol/L Chloride (98-107) mmol/L Carbon Dioxide (22-30) mmol/L Anion Gap (5-15) MEQ/L BUN (7-17) mg/dL Creatinine (0.52-1.04) mg/dL Estimated GFR ML/MIN Glucose (74-106) mg/dL POC Glucometer 136 H 148 H (74 to 106) mg/dL Hemoglobin A1c (4.5-6.0) % Calcium (8.4-10.2) mg/dL Total Bilirubin (0.2-1.3) mg/dL AST (14-36) U/L ALT (0-35) U/L Alkaline Phosphatase (38-126) U/L Serum Total Protein (6.3-8.2) g/dL Albumin (3.5-5.0) g/dL Micro Results-Entire Visit: Accuchecks Date 10/09/23 Date 10/09/23 Date 10/09/23 Time 16:32 Time 11:10 - Radiology Exams Ordered Rad Exams-Entire Visit: Radiology Procedures Category Date Time Status ABDOMEN AND PELVIS W/0 CONTRAS [CT] Stat Exams 10/08/23 23:28 Completed - Procedures and Test Procedures and Tests throughout Hospitalization: Therapy Orders & Screens 10/09/23 01:46 Oxygen Nasal Cannula 2 lpm Comment: Respiratory Therapy Consult ONCE Comment: Reason For Exam: 10/09/23 02:13 RT Screen per Nursing Assess ONCE Comment: Protocol Order Physician Instructions: Greater than 3 points order RT Admission Screen Reason For Exam: Triggered on Admission Diagnosis: SIGMOID DIVERTICULITIS, ADRENOL ADENOMAS- BILATERAL Diagnosis: SIGMOID DIVERTICULITIS, ADRENOL ADENOMAS- BILATERAL Pneumonia: No Home O2: Yes Asthma: No CHF: No Home CPAP/BIPAP: No Home Nebs/MDI: Yes Total Points: 10 10/10/23 08:00 Respiratory Therapy Assessment UD Comment: Diagnosis: abdominal pain Final Diagnosis/Problem List - Final Discharge Diagnosis/Problem (1) Type 2 diabetes mellitus Current Visit: Yes Status: Acute (2) COPD (chronic obstructive pulmonary disease) Current Visit: Yes Status: Acute (3) HTN (hypertension) Current Visit: Yes Status: Acute Code(s): I10 - ESSENTIAL (PRIMARY) HYPERTENSION (4) Sigmoid diverticulitis Current Visit: Yes Status: Acute Code(s): K57.32 - DVTRCLI OF LG INT W/O PERFORATION OR ABSCESS W/O BLEEDING - Discharge Disposition: Home, Self-Care Condition: Stable Prescriptions: New Metronidazole 500 mg [Flagyl 500 MG] 500 mg PO TID #21 tablet No Action Albuterol 8 gm Mdi Hfa [Ventolin Hfa MDI] 8 gm IH QIDPRN PRN PRN Reason: Shortness Of Breath Albuterol 2.5 mg/3 ml Neb [Proventil 2.5 mg/3 ml Neb] 2.5 mg IH BID Lovastatin 20 mg PO DAILY Aspirin EC 325 mg [Ecotrin 325 MG] 325 mg PO DAILY Calcium Carbonate/Vitamin D3 [Calcium 600-Vit D3 400 Caplet] 1 each PO BID Omeprazole 40 mg PO DAILY Fluticasone/Umeclidin/Vilanter [Trelegy Ellipta 100-62.5-25] 1 inh PO DAILY Amlodipine Besylate 5 mg [Norvasc 5 mg] 5 mg PO DAILY Empagliflozin [Jardiance] 25 mg PO DAILY Semaglutide [Rybelsus] 3.5 mg PO DAILY Metoprolol Succinate 25 mg Xl* [Toprol-Xl 25MG Tablets] 25 mg PO DAILY Lisinopril 20 mg [Zestril 20 MG] 20 mg PO BID Montelukast Sodium [Singulair] 10 mg PO DAILY Follow up with: KELLY RAMOS DO [Primary Care Provider] -
[2023-10-10 05:14] LABS: BASOPHIL % 0.3 % (0.1-1.2); Basophil (Absolute #) 0.04 x10^3/uL (0.01-0.08); Eosinophil % 1.5 % (0.7-5.8); Eosinophil (Absolute #) 0.19 x10^3/uL (0.04-0.36); Hematocrit 36.8 % (34.1-44.9); Hemoglobin 11.4 g/dL (11.2-15.7); IMMATURE GRAN # 0.05 x10^3u/L (0.001-0.031); IMMATURE GRAN % 0.4 % (0.001-0.429); Lymphocyte (Absolute #) 1.22 x10^3/uL (1.18-3.74); Lymphocytes % 9.7 % (19.3-51.7); Mean Cell Volume 93.2 fL (79.4-94.8); Mean Corpuscular Hemoglobin 28.9 pg (25.6-32.2); Mean Platelet Volume 9.9 fL (9.4-12.3); Monocyte (Absolute #) 0.94 x10^3/uL (0.24-0.86); Monocytes % 7.5 % (4.7-12.5); Neutrophil % 80.6 % (34.0-71.1); Platelet Count 213 x10^3/uL (182-369); Red Blood Count 3.95 x10^6/uL (3.93-5.22); Red Cell Distribution Width 13.3 % (11.7-14.4); White Blood Count 12.5 x10^3/uL (3.98-10.04)
[2023-10-10 05:47] LABS: ALBUMIN 3.1 g/dL (3.5-5.0); ANION GAP 7.6 MEQ/L (5-15); BILIRUBIN,TOTAL 0.7 mg/dL (0.2-1.3); Calcium 8.6 mg/dL (8.4-10.2); Creatinine 1 0.75 mg/dL (0.52-1.04); EST GLOMERULAR FILTRATION RATE 79.4 ML/MIN; Potassium 3.6 mmol/L (3.5-5.1); Total Protein 5.6 g/dL (6.3-8.2)
--- NOTE | 2023-10-10 09:42 | PCM.NOTE ---
Date and Time: 10/10/23 0936 Subjective Assessment: 83-year-old woman with a history of COPD, DM2, and hypertension, admitted 10/09/23 with recurrent episode of acute diverticulitis. CT abdomen/pelvis colonic diverticulosis with fat stranding around the distal descending and proximal sigmoid colon, consistent with acute diverticulitis. No evidence of perforation or abscess. IP treatment with Zosyn. 10/09: Met with patient bedside. Endorses continued abdominal pain to LUQ, this has improved some. She is tolerating a diet with no nausea. Reports she is feeling very weak and does not have much help at home. Will have PT work with her today, continue abx, ADAT, and most likely can discharge tomorrow on oral antibiotics. Denies fever,cough, sob, cp, MALONE, dizziness, N/V/D. - Review of Systems Constitutional: No Symptoms Eyes: No Symptoms Ears, Nose, & Throat: No Symptoms Respiratory: No Symptoms Cardiac: No Symptoms Abdominal/Gastrointestinal: Abdominal Pain Genitourinary Symptoms: No Symptoms Musculoskeletal: No Symptoms Skin: No Symptoms Neurological: No Symptoms Psychological: No Symptoms Endocrine: No Symptoms Hematologic/Lymphatic: No Symptoms Immunological/Allergic: No Symptoms Objective Exam General Appearance: no apparent distress Neurologic Exam: alert, oriented x 3, cooperative Skin Exam: normal color Eye Exam: PERRL Ears, Nose, Throat Exam: normal ENT inspection Neck Exam: normal inspection Respiratory Exam: normal breath sounds, lungs clear Cardiovascular Exam: regular rate/rhythm, normal heart sounds Gastrointestinal/Abdomen Exam: soft, normal bowel sounds, tenderness (LUQ/mid abdomen) Extremity Exam: normal inspection Back Exam: normal inspection Pelvic Exam: deferred Rectal Exam: deferred Objective Data Vital Signs: Vital Signs - 24 hr Temp Pulse Resp BP Pulse Ox 10/10/23 07:00 97.9 F 88 18 137/71 94 L 10/10/23 06:54 87 16 97 10/10/23 03:00 97.6 F 87 15 117/65 94 L 10/09/23 23:00 97.2 F 98 H 16 116/70 95 10/09/23 19:54 98.4 F 83 18 113/64 93 L 10/09/23 19:24 97 10/09/23 19:22 91 H 18 97 10/09/23 16:00 97.6 F 101 H 16 119/59 97 10/09/23 14:58 94 H 20 98 10/09/23 11:07 98.4 F 81 16 115/66 95 10/09/23 11:01 88 18 97 Pain Assessment - Last Documented Pain Intensity 2 Pain Scale Used 0-10 Pain Scale Intake and Output: Intake & Output 10/07/23 10/08/23 10/09/23 10/10/23 11:59 11:59 11:59 11:59 Intake Total 0 1180 Output Total 600 800 Balance -600 380 Weight 79.7 kg Lab Results: Lab Results-Last 24 Hours 10/09/23 10/09/23 10/09/23 Range/Units 11:17 16:26 21:58 WBC (3.98-10.04) x10^3/uL RBC (3.93-5.22) x10^6/uL Hgb (11.2-15.7) g/dL Hct (34.1-44.9) % MCV (79.4-94.8) fL MCH (25.6-32.2) pg MCHC (32.2-35.5) g/dL RDW (11.7-14.4) % Plt Count (182-369) x10^3/uL MPV (9.4-12.3) fL Gran % (34.0-71.1) % Immature Gran % (Auto) (0.001-0.429) % Nucleat RBC Rel Count (0.00-0.2) % Eos # (Auto) (0.04-0.36) x10^3/uL Immature Gran # (Auto) (0.001-0.031) x10^3u/L Absolute Lymphs (auto) (1.18-3.74) x10^3/uL Absolute Monos (auto) (0.24-0.86) x10^3/uL Absolute Nucleated RBC (0.00-0.012) x10^3u/L Lymphocytes % (19.3-51.7) % Monocytes % (4.7-12.5) % Eosinophils % (0.7-5.8) % Basophils % (0.1-1.2) % Absolute Granulocytes (1.56-6.13) x10^3/uL Basophils # (0.01-0.08) x10^3/uL Sodium (135-145) mmol/L Potassium (3.5-5.1) mmol/L Chloride (98-107) mmol/L Carbon Dioxide (22-30) mmol/L Anion Gap (5-15) MEQ/L BUN (7-17) mg/dL Creatinine (0.52-1.04) mg/dL Estimated GFR ML/MIN Glucose (74-106) mg/dL POC Glucometer 133 H 136 H 148 H (74 to 106) mg/dL Calcium (8.4-10.2) mg/dL Total Bilirubin (0.2-1.3) mg/dL AST (14-36) U/L ALT (0-35) U/L Alkaline Phosphatase (38-126) U/L Serum Total Protein (6.3-8.2) g/dL Albumin (3.5-5.0) g/dL 10/10/23 10/10/23 10/10/23 Range/Units 04:20 04:20 06:59 WBC 12.5 H (3.98-10.04) x10^3/uL RBC 3.95 (3.93-5.22) x10^6/uL Hgb 11.4 (11.2-15.7) g/dL Hct 36.8 (34.1-44.9) % MCV 93.2 (79.4-94.8) fL MCH 28.9 (25.6-32.2) pg MCHC 31.0 L (32.2-35.5) g/dL RDW 13.3 (11.7-14.4) % Plt Count 213 (182-369) x10^3/uL MPV 9.9 (9.4-12.3) fL Gran % 80.6 H (34.0-71.1) % Immature Gran % (Auto) 0.4 (0.001-0.429) % Nucleat RBC Rel Count 0.0 (0.00-0.2) % Eos # (Auto) 0.19 (0.04-0.36) x10^3/uL Immature Gran # (Auto) 0.05 H (0.001-0.031) x10^3u/L Absolute Lymphs (auto) 1.22 (1.18-3.74) x10^3/uL Absolute Monos (auto) 0.94 H (0.24-0.86) x10^3/uL Absolute Nucleated RBC 0.00 (0.00-0.012) x10^3u/L Lymphocytes % 9.7 L (19.3-51.7) % Monocytes % 7.5 (4.7-12.5) % Eosinophils % 1.5 (0.7-5.8) % Basophils % 0.3 (0.1-1.2) % Absolute Granulocytes 10.10 H (1.56-6.13) x10^3/uL Basophils # 0.04 (0.01-0.08) x10^3/uL Sodium 139 (135-145) mmol/L Potassium 3.6 (3.5-5.1) mmol/L Chloride 107 (98-107) mmol/L Carbon Dioxide 29 (22-30) mmol/L Anion Gap 7.6 (5-15) MEQ/L BUN 17 (7-17) mg/dL Creatinine 0.75 (0.52-1.04) mg/dL Estimated GFR 79.4 ML/MIN Glucose 134 H (74-106) mg/dL POC Glucometer 133 H (74 to 106) mg/dL Calcium 8.6 (8.4-10.2) mg/dL Total Bilirubin 0.70 (0.2-1.3) mg/dL AST 22 (14-36) U/L ALT 14 (0-35) U/L Alkaline Phosphatase 81 (38-126) U/L Serum Total Protein 5.6 L (6.3-8.2) g/dL Albumin 3.1 L (3.5-5.0) g/dL Radiology Exams: Radiology Procedures Category Date Time Status ABDOMEN AND PELVIS W/0 CONTRAS [CT] Stat Exams 10/08/23 23:28 Completed Assessment/Plan (1) Sigmoid diverticulitis Current Visit: Yes Status: Acute Assessment & Plan: -CT with colonic diverticulosis with fat stranding around the distal and proximal sigmoid colon, consistent with acute diverticulitis - no evidence of perforation or abscess -ADAT -supportive therapies -anti-emetics/pain control -continue zosyn Code(s): K57.32 - DVTRCLI OF LG INT W/O PERFORATION OR ABSCESS W/O BLEEDING (2) Type 2 diabetes mellitus Current Visit: Yes Status: Acute Assessment & Plan: -ADAT -Carb controlled -SSI -A1c at 7.37 (3) COPD (chronic obstructive pulmonary disease) Current Visit: Yes Status: Acute Assessment & Plan: -No exacerbation -Supplemental oxygen with goal spo2 >92% -RT -NEBS/INH -at baseline oxygen 3L (4) HTN (hypertension) Current Visit: Yes Status: Acute Assessment & Plan: blood pressure well-controlled Continue lisinopril 20 BID, Norvasc 5 CODE STATUS: Full code Diet: Carb controlled Prophylaxis: Lovenox Code(s): I10 - ESSENTIAL (PRIMARY) HYPERTENSION
[2023-10-11] MEDS: DUONEB 0.5-3 MG/3 ml Neb IH PRN (01:07)
--- NOTE | 2023-10-11 05:17 | PCM.DS ---
Discharge Summary Date of Admission: 10/09/23 01:38 Date of Discharge: 10/11/23 Admitting Physician: JOHN NÚÑEZ MD Primary Care Provider: KELLY RAMOS DO Allergies Allergies metformin Adverse Reaction (Verified 10/08/23 23:23) Sick to stomach, headache Hospital Summary - Hospital Course Hospital Course: 83-year-old woman with a history of COPD, DM2, and hypertension, admitted 10/09/23 with recurrent episode of acute diverticulitis. CT abdomen/pelvis colonic diverticulosis with fat stranding around the distal descending and proximal sigm oid colon, consistent with acute diverticulitis. No evidence of perforation or abscess. IP treatment with Zosyn. Patient able to tolerate diet with mild nausea/abdominal pain. No anti-emetics or pain control in 24 hours. Plan to discharge home today with Augmentin. Advised follow up with GI/PCP. Patient agreeable to plan. Discharge Note New Diagnosis:Diverticulitis New Medications: Augmentin Follow Up: PCP/GI Latest Assessment & Plan (1) Sigmoid diverticulitis Current Visit: Yes Status: Acute Assessment & Plan: -CT with colonic diverticulosis with fat stranding around the distal and proximal sigmoid colon, consistent with acute diverticulitis - no evidence of perforation or abscess -ADAT -supportive therapies -anti-emetics/pain control -continue zosyn Code(s): K57.32 - DVTRCLI OF LG INT W/O PERFORATION OR ABSCESS W/O BLEEDING (2) Type 2 diabetes mellitus Current Visit: Yes Status: Acute Assessment & Plan: -ADAT -Carb controlled -SSI -A1c at 7.37 (3) COPD (chronic obstructive pulmonary disease) Current Visit: Yes Status: Acute Assessment & Plan: -No exacerbation -Supplemental oxygen with goal spo2 >92% -RT -NEBS/INH -at baseline oxygen 3L (4) HTN (hypertension) Current Visit: Yes Status: Acute Assessment & Plan: blood pressure well-controlled Continue lisinopril 20 BID, Norvasc 5 CODE STATUS: Full code Diet: Carb controlled Prophylaxis: Lovenox I spent 35 minutes [id number] with the patient on the day of discharge perfor anoop discharge exam, discussing hospital stay and discharge instructions with patient and caregivers, preparation of discharge records, prescriptions & referral forms and addressing any questions/concerns the patient had as documented above. - Vitals & Intake/Output Vital Signs: Vital Signs Temperature 97.0 F 10/11/23 00:00 Pulse Rate 118 H 10/11/23 01:07 Respiratory Rate 20 10/11/23 01:07 Blood Pressure 150/77 10/11/23 00:00 O2 Sat by Pulse Oximetry 99 10/11/23 01:07 Intake & Output: Intake & Output 10/08/23 10/09/23 10/10/23 10/11/23 11:59 11:59 11:59 11:59 Intake Total 0 1180 1285 Output Total 133 829 3671 Balance -600 380 -515 Weight 79.7 kg 83.8 kg - Lab Result Diagrams: 10/11/23 04:55 10/11/23 09:58 Lab Results-Last 24 Hrs: Lab Results-Last 24 Hours 10/10/23 10/10/23 10/10/23 Range/Units 04:20 04:20 06:59 WBC 12.5 H (3.98-10.04) x10^3/uL RBC 3.95 (3.93-5.22) x10^6/uL Hgb 11.4 (11.2-15.7) g/dL Hct 36.8 (34.1-44.9) % MCV 93.2 (79.4-94.8) fL MCH 28.9 (25.6-32.2) pg MCHC 31.0 L (32.2-35.5) g/dL RDW 13.3 (11.7-14.4) % Plt Count 213 (182-369) x10^3/uL MPV 9.9 (9.4-12.3) fL Gran % 80.6 H (34.0-71.1) % Immature Gran % (Auto) 0.4 (0.001-0.429) % Nucleat RBC Rel Count 0.0 (0.00-0.2) % Eos # (Auto) 0.19 (0.04-0.36) x10^3/uL Immature Gran # (Auto) 0.05 H (0.001-0.031) x10^3u/L Absolute Lymphs (auto) 1.22 (1.18-3.74) x10^3/uL Absolute Monos (auto) 0.94 H (0.24-0.86) x10^3/uL Absolute Nucleated RBC 0.00 (0.00-0.012) x10^3u/L Lymphocytes % 9.7 L (19.3-51.7) % Monocytes % 7.5 (4.7-12.5) % Eosinophils % 1.5 (0.7-5.8) % Basophils % 0.3 (0.1-1.2) % Absolute Granulocytes 10.10 H (1.56-6.13) x10^3/uL Basophils # 0.04 (0.01-0.08) x10^3/uL Sodium 139 (135-145) mmol/L Potassium 3.6 (3.5-5.1) mmol/L Chloride 107 (98-107) mmol/L Carbon Dioxide 29 (22-30) mmol/L Anion Gap 7.6 (5-15) MEQ/L BUN 17 (7-17) mg/dL Creatinine 0.75 (0.52-1.04) mg/dL Estimated GFR 79.4 ML/MIN Glucose 134 H (74-106) mg/dL POC Glucometer 133 H (74 to 106) mg/dL Calcium 8.6 (8.4-10.2) mg/dL Total Bilirubin 0.70 (0.2-1.3) mg/dL AST 22 (14-36) U/L ALT 14 (0-35) U/L Alkaline Phosphatase 81 (38-126) U/L Serum Total Protein 5.6 L (6.3-8.2) g/dL Albumin 3.1 L (3.5-5.0) g/dL 10/10/23 10/10/23 10/10/23 Range/Units 11:20 16:42 21:24 WBC (3.98-10.04) x10^3/uL RBC (3.93-5.22) x10^6/uL Hgb (11.2-15.7) g/dL Hct (34.1-44.9) % MCV (79.4-94.8) fL MCH (25.6-32.2) pg MCHC (32.2-35.5) g/dL RDW (11.7-14.4) % Plt Count (182-369) x10^3/uL MPV (9.4-12.3) fL Gran % (34.0-71.1) % Immature Gran % (Auto) (0.001-0.429) % Nucleat RBC Rel Count (0.00-0.2) % Eos # (Auto) (0.04-0.36) x10^3/uL Immature Gran # (Auto) (0.001-0.031) x10^3u/L Absolute Lymphs (auto) (1.18-3.74) x10^3/uL Absolute Monos (auto) (0.24-0.86) x10^3/uL Absolute Nucleated RBC (0.00-0.012) x10^3u/L Lymphocytes % (19.3-51.7) % Monocytes % (4.7-12.5) % Eosinophils % (0.7-5.8) % Basophils % (0.1-1.2) % Absolute Granulocytes (1.56-6.13) x10^3/uL Basophils # (0.01-0.08) x10^3/uL Sodium (135-145) mmol/L Potassium (3.5-5.1) mmol/L Chloride (98-107) mmol/L Carbon Dioxide (22-30) mmol/L Anion Gap (5-15) MEQ/L BUN (7-17) mg/dL Creatinine (0.52-1.04) mg/dL Estimated GFR ML/MIN Glucose (74-106) mg/dL POC Glucometer 177 H 177 H 161 H (74 to 106) mg/dL Calcium (8.4-10.2) mg/dL Total Bilirubin (0.2-1.3) mg/dL AST (14-36) U/L ALT (0-35) U/L Alkaline Phosphatase (38-126) U/L Serum Total Protein (6.3-8.2) g/dL Albumin (3.5-5.0) g/dL Micro Results-Entire Visit: Accuchecks Date 10/10/23 Date 10/10/23 Date 10/10/23 Date 10/10/23 Time 21:25 - Procedures and Test Procedures and Tests throughout Hospitalization: Therapy Orders & Screens 10/09/23 01:46 Oxygen Nasal Cannula 2 lpm Comment: Respiratory Therapy Consult ONCE Comment: Reason For Exam: 10/09/23 02:13 RT Screen per Nursing Assess ONCE Comment: Protocol Order Physician Instructions: Greater than 3 points order RT Admission Screen Reason For Exam: Triggered on Admission Diagnosis: SIGMOID DIVERTICULITIS, ADRENOL ADENOMAS- BILATERAL Diagnosis: SIGMOID DIVERTICULITIS, ADRENOL ADENOMAS- BILATERAL Pneumonia: No Home O2: Yes Asthma: No CHF: No Home CPAP/BIPAP: No Home Nebs/MDI: Yes Total Points: 10 10/10/23 08:00 Respiratory Therapy Assessment UD Comment: Diagnosis: abdominal pain Discharge Exam General Appearance: no apparent distress Neurologic Exam: alert, oriented x 3, cooperative Eye Exam: PERRL Ears, Nose, Throat Exam: normal ENT inspection Neck Exam: normal inspection Respiratory Exam: crackles/rales Cardiovascular Exam: regular rate/rhythm, normal heart sounds Gastrointestinal/Abdomen Exam: soft, normal bowel sounds, tenderness (diffuse) Pelvic Exam: deferred Rectal Exam: deferred Back Exam: normal inspection Extremity Exam: normal inspection Skin Exam: normal color Final Diagnosis/Problem List - Final Discharge Diagnosis/Problem (1) Sigmoid diverticulitis Current Visit: Yes Status: Acute Code(s): K57.32 - DVTRCLI OF LG INT W/O PERFORATION OR ABSCESS W/O BLEEDING (2) Type 2 diabetes mellitus Current Visit: Yes Status: Chronic (3) COPD (chronic obstructive pulmonary disease) Current Visit: Yes Status: Chronic (4) HTN (hypertension) Current Visit: Yes Status: Chronic Code(s): I10 - ESSENTIAL (PRIMARY) HYPERTENSION - Discharge Disposition: Home, Self-Care Condition: Stable Prescriptions: New Amox Tr/Potass Clav. 875 mg [Augmentin 875-125 Tablet] 875 mg PO BID 10 Days #20 tablet Continue Albuterol 8 gm Mdi Hfa [Ventolin Hfa MDI] 8 gm IH QIDPRN PRN PRN Reason: Shortness Of Breath Albuterol 2.5 mg/3 ml Neb [Proventil 2.5 mg/3 ml Neb] 2.5 mg IH BID Lovastatin 20 mg PO DAILY Aspirin EC 325 mg [Ecotrin 325 MG] 325 mg PO DAILY Calcium Carbonate/Vitamin D3 [Calcium 600-Vit D3 400 Caplet] 1 each PO BID Omeprazole 40 mg PO DAILY Fluticasone/Umeclidin/Vilanter [Trelegy Ellipta 100-62.5-25] 1 inh PO DAILY Amlodipine Besylate 5 mg [Norvasc 5 mg] 5 mg PO DAILY Empagliflozin [Jardiance] 25 mg PO DAILY Semaglutide [Rybelsus] 3.5 mg PO DAILY Metoprolol Succinate 25 mg Xl* [Toprol-Xl 25MG Tablets] 25 mg PO DAILY Lisinopril 20 mg [Zestril 20 MG] 20 mg PO BID Montelukast Sodium [Singulair] 10 mg PO DAILY Follow up with: MARILEE CORDOVA, MANAGER STUDY [[employer]AFF] - 10/17/23 10:00 am
[2023-10-11 05:28] LABS: Absolute Neutrophil Ct (ANC) 9.04 x10^3/uL (1.56-6.13); BASOPHIL % 0.3 % (0.1-1.2); Basophil (Absolute #) 0.03 x10^3/uL (0.01-0.08); Eosinophil % 2.3 % (0.7-5.8); Eosinophil (Absolute #) 0.26 x10^3/uL (0.04-0.36); Hematocrit 35.2 % (34.1-44.9); Hemoglobin 11.2 g/dL (11.2-15.7); IMMATURE GRAN # 0.05 x10^3u/L (0.001-0.031); IMMATURE GRAN % 0.4 % (0.001-0.429); Lymphocyte (Absolute #) 1.09 x10^3/uL (1.18-3.74); Lymphocytes % 9.6 % (19.3-51.7); Mean Cell Volume 91.7 fL (79.4-94.8); Mean Corpuscular Hemoglobin 29.2 pg (25.6-32.2); Mean Corpuscular Hgb Concent. 31.8 g/dL (32.2-35.5); Mean Platelet Volume 9.7 fL (9.4-12.3); Monocyte (Absolute #) 0.85 x10^3/uL (0.24-0.86); Monocytes % 7.5 % (4.7-12.5); Neutrophil % 79.9 % (34.0-71.1); Platelet Count 223 x10^3/uL (182-369); Red Blood Count 3.84 x10^6/uL (3.93-5.22); Red Cell Distribution Width 13.4 % (11.7-14.4); White Blood Count 11.3 x10^3/uL (3.98-10.04)
[2023-10-11 05:31] VITALS: RESP 16
[2023-10-11 05:50] LABS: ALBUMIN 3.2 g/dL (3.5-5.0); ANION GAP 8.2 MEQ/L (5-15); BILIRUBIN,TOTAL 0.6 mg/dL (0.2-1.3); Calcium 8.6 mg/dL (8.4-10.2); Creatinine 1 0.76 mg/dL (0.52-1.04); EST GLOMERULAR FILTRATION RATE 78.2 ML/MIN; Potassium 3.2 mmol/L (3.5-5.1); Total Protein 5.7 g/dL (6.3-8.2)
[2023-10-11] MEDS: Klor Con PO SCH (06:38)
[2023-10-11 07:19] VITALS: O2SAT 98
[2023-10-11] MEDS ORDERED: Miralax Powder 17GM PACKET PO PRN (08:48)
--- NOTE | 2023-10-11 10:19 | XRAY ---
Indication: Short of breath. Comparison: April 03, 2021 Portable chest again demonstrates minimal bibasilar infiltrates versus atelectasis, left greater than right. Stable incidental right base calcified granuloma. New CT proven small hiatal hernia. Remaining heart and upper lungs unremarkable. Bony thorax intact again with osteopenia, degenerative changes, and mild dextroscoliosis.
[2023-10-11] MEDS: Docusate Sodium 100 MG PO SCH (10:45)
[2023-10-11 13:18] VITALS: BP 155/72; PULSE 98; TEMP 97.5
== END 2023-10-11 13:50 | disposition home or self-care (01) ==
LOC: ED 23:15 → MED SURG 10-09 01:38
PROVIDERS: ADMIT Internal Medicine; ATTEND Internal Medicine
DX: K57.32 Diverticulitis of large intestine without perforation or abscess without bleeding (principal); E11.9 Type 2 diabetes mellitus without complications; E78.5 Hyperlipidemia, unspecified; J44.9 Chronic obstructive pulmonary disease, unspecified; I10 Essential (primary) hypertension; Z79.899 Other long term (current) drug therapy; Z99.81 Dependence on supplemental oxygen
CPT/HCPCS: 36000; 36415; 71045; 74176; 80053; 81001; 82150; 82947; 83036; 83605; 83690; 83735; 84132; 85025; 94640; 94760; 96365; 96368; 96374; 96375; 99285; G0378; Q3014; J1650; J1956; J2270; J2405; A9270-GY

== ENCOUNTER 2023-10-12 02:01 | Observation (INO) | payer MEDICARE ==
[2023-10-12] MEDS ORDERED: DUONEB 0.5-3 MG/3 ml Neb IH ONE (02:09)
[2023-10-12] MEDS: DUONEB 0.5-3 MG/3 ml Neb IH ONE (02:15)
--- NOTE | 2023-10-12 02:21 | ERPHSYRPT ---
- History of Present Illness Source: patient Exam Limitations: no limitations Patient Subjective Stated Complaint: sob since pt got discharged yesterday from this facility with diverticulitis Triage Nursing Assessment: pt wheeled to room by regristration staff, pt short of breath with labored breathing upon arrival, pt normally wears 3 L NC but forgot her o2 at home, lung sounds wheezing throughout Hx Tetanus, Diphtheria Vaccination/Date Given: No Hx Influenza Vaccination/Date Given: Yes Hx Pneumococcal Vaccination/Date Given: Yes - History of Present Illness Time Seen by Provider: 10/12/23 02:13 Physician History: 83 years old female with history of chronic respiratory failure secondary to COPD on 3 L oxygen, hypertension, hyperlipidemia, diabetes mellitus, recurrent diverticulitis was discharged yesterday from this hospital inpatient presented back with increasing shortness of breath since evening. Patient reports using multiple neb treatments with no significant relief. Reports tightness and pressure in the chest with wheezing although her over. Denies any fever or chills. Cough productive of clear to yellow sputum. Currently on Augmentin. (MEGHNA GE) Allergies/Adverse Reactions: metformin Adverse Reaction (Verified 10/12/23 02:17) Sick to stomach, headache Home Medications: Albuterol 2.5 mg/3 ml Neb [Proventil 2.5 mg/3 ml Neb] 2.5 mg IH BID 03/08/19 [History] Albuterol 8 gm Mdi Hfa [Ventolin Hfa MDI] 8 gm IH QIDPRN PRN 03/08/19 [History] Lovastatin 20 mg PO DAILY 03/21/19 [History] Aspirin EC 325 mg [Ecotrin 325 MG] 325 mg PO DAILY 03/22/19 [History] Calcium Carbonate/Vitamin D3 [Calcium 600-Vit D3 400 Caplet] 1 each PO BID 08/22/19 [History] Fluticasone/Umeclidin/Vilanter [Trelegy Ellipta 100-62.5-25] 1 inh PO DAILY 04/02/21 [History] Omeprazole 40 mg PO DAILY 04/02/21 [History] Amlodipine Besylate 5 mg [Norvasc 5 mg] 5 mg PO DAILY 07/13/23 [History] Empagliflozin [Jardiance] 25 mg PO DAILY 07/13/23 [History] Semaglutide [Rybelsus] 3.5 mg PO DAILY 07/13/23 [History] Lisinopril 20 mg [Zestril 20 MG] 20 mg PO BID 10/09/23 [History] Metoprolol Succinate 25 mg Xl* [Toprol-Xl 25MG Tablets] 25 mg PO DAILY 10/09/23 [History] Montelukast Sodium [Singulair] 10 mg PO DAILY 10/09/23 [History] Travel Risk - International Travel Have you traveled outside of the country in past 3 weeks: No - Emerging Infectious Disease Are you exhibiting symptoms associated with any current EIDs: Yes Symptoms: Abdominal Pain, Shortness of Breath - Review of Systems Constitutional: Fatigue Eyes: No Symptoms Ears, Nose, & Throat: No Symptoms Respiratory: Cough, Dyspnea, Wheezing Cardiac: No Symptoms Abdominal/Gastrointestinal: No Symptoms Genitourinary Symptoms: No Symptoms Musculoskeletal: Arthralgias Skin: No Symptoms Neurological: No Symptoms Hematologic/Lymphatic: No Symptoms Immunological/Allergic: No Symptoms - Past Medical History Pertinent Past Medical History: Yes Neurological History: No Pertinent History ENT History: No Pertinent History Cardiac History: High Cholesterol, Hypertension Respiratory History: COPD Endocrine Medical History: Diabetes Type II, Other Musculoskeletal History: Arthritis, Fractures, Osteoporosis GI Medical History: Diverticulitis, GERD, Gallbladder Disease History: No Pertinent History Psycho-Social History: No Pertinent History Female Reproductive Disorders: No Pertinent History Other Medical History: seasonal allergies, Post Covid April 2020, ankle fracture - Past Surgical History Past Surgical History: Yes Neuro Surgical History: No Pertinent History Cardiac: No Pertinent History Respiratory: No Pertinent History Gastrointestinal: Appendectomy, Cholecystectomy, Other Genitourinary: No Pertinent History Musculoskeletal: No Pertinent History Female Surgical History: Other Other Surgical History: diagnostic open abdominal, ankle fx and surgery, partial hysterectomy Significant Family History: no pertinent family hx - Social History Smoking Status: Former smoker How long have you smoked: 65 years Exposure to second hand smoke: No Drug Use: none Patient Lives Alone: No - Social Determinants of Health Will the patient participate in the screening: Yes Do you worry about a steady place to live?: No Do you have any problems with any of the following?: No known problems In the past 12 months,have you had to go without utilities?: No Transportation Issues: No Has anyone in your support network made you feel unsafe?: No Have you or anyone in your house had to go without enough: No - Physical Exam General Appearance: no apparent distress, alert, anxiety Eye Exam: PERRL/EOMI Ears, Nose, Throat Exam: hearing grossly normal Neck Exam: normal inspection, supple, full range of motion Respiratory Exam: respiratory distress (Mild), diminished breath sounds, accessory muscle use, rhonchi, wheezing Cardiovascular/Chest Exam: normal heart sounds, tachycardia Abdominal/Gastrointestinal Exam: soft, normal bowel sounds Extremity Exam: non-tender, normal range of motion Neurologic Exam: alert, oriented x 3, cooperative Skin Exam: normal color SpO2 Interpretation: O2 applied SpO2: 96 O2 Delivery: Nasal Cannula (3 L) - Nursing Vital Signs Nursing Vital Signs: Initial Vital Signs Pulse Rate 136 H 10/12/23 02:04 Respiratory Rate 30 H 10/12/23 02:04 Blood Pressure 153/100 10/12/23 02:04 O2 Sat by Pulse Oximetry 97 10/12/23 02:04 Pain Scale Pain Intensity 0 - Course EKG Interpreted by Me: RATE ([id number]), Sinus Tach, NORMAL AXIS, Q-wave, Non-specific ST Changes Ordered Tests: Active Orders 24 hr Category Date Time Status 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 STAT Care 10/12/23 02:16 Active EKG-ER Only STAT Care 10/12/23 02:16 Active IV Insertion STAT Care 10/12/23 02:16 Active Oxygen-ED Only Nasal Cannula 3 lpm Care 10/12/23 02:16 Active CHEST WITH CONTRAST [CT] Stat Exams 10/12/23 04:42 Completed ABG [ARTERIAL BLOOD GASES] Stat Lab 10/12/23 03:03 Completed BLOOD CULTURE Stat Lab 10/12/23 02:30 Received CBC W DIFF Stat Lab 10/12/23 02:15 Completed CMP Stat Lab 10/12/23 02:15 Completed Lactic Acid Stat Lab 10/12/23 02:16 Completed MAGNESIUM Stat Lab 10/12/23 02:15 Completed NT PRO BNPII Stat Lab 10/12/23 02:15 Completed PROCALCITONIN Stat Lab 10/12/23 02:15 Completed TROPONIN Q4H Lab 10/12/23 02:15 Completed TROPONIN Q4H Lab 10/12/23 07:05 Completed TROPONIN Q4H Lab 10/12/23 10:30 Ordered Respiratory Therapy Assessment DAILY RT 10/12/23 02:15 Active Transfer Order Routine Transfer 10/12/23 Ordered Medication Summary Generic Name Dose Route Start Last Admin Trade Name Denae PRN Reason Stop Dose Admin Sodium Chloride 1,000 mls @ 100 mls/hr 10/12/23 05:00 10/12/23 04:58 Sodium Chloride 0.9% 1000 Ml IV 11/11/23 04:59 100 mls/hr .Q10H JANNETH Administration Discontinued Medications Generic Name Dose Route Start Last Admin Trade Name Denae PRN Reason Stop Dose Admin Albuterol/Ipratropium Confirm 10/12/23 02:09 Ipratropium/Albuterol Sulfate 3 Ml Ampul.Neb Administered 10/12/23 02:10 Dose 3 ml IH .STK-MED ONE Albuterol/Ipratropium 3 ml 10/12/23 02:14 10/12/23 02:15 Ipratropium/Albuterol Sulfate 3 Ml Ampul.Neb IH 10/12/23 02:15 3 ml STAT ONE Administration Methylprednisolone Sodium 0 mg 10/12/23 02:16 10/12/23 02:23 Succinate 125 mg/ Sterile IV 10/12/23 02:17 125 mg Water 2 ml STAT ONE Administration Ceftriaxone Sodium 2 gm in 100 mls @ 200 mls/hr 10/12/23 02:16 10/12/23 03:05 Rocephin 2 Gm/100 Ml Nacl IV 10/12/23 02:45 Infused STAT ONE Infusion Azithromycin 500 mg in 250 mls @ 250 mls/hr 10/12/23 02:16 10/12/23 04:07 Zithromax 500 Mg/ 250 Ml Nacl Premix IV 10/12/23 03:15 Infused STAT STA Infusion Ceftriaxone Sodium Confirm 10/12/23 02:22 Rocephin 2 Gm/100 Ml Nacl Administered 10/12/23 02:23 Dose 2 gm in 100 mls @ ud IV .STK-MED ONE Azithromycin Confirm 10/12/23 02:47 Zithromax 500 Mg/ 250 Ml Nacl Premix Administered 10/12/23 02:48 Dose 500 mg in 250 mls @ ud IV .STK-MED ONE Methylprednisolone Sodium Succinate Confirm 10/12/23 02:22 Methylprednis Sod Succ 125 Mg/2 Ml Vial Administered 10/12/23 02:23 Dose 125 mg .ROUTE .STK-MED ONE Ondansetron HCl 4 mg 10/12/23 07:37 10/12/23 07:40 Ondansetron Hcl 4 Mg/2 Ml Vial IV 10/12/23 07:38 4 mg STAT ONE Administration Ondansetron HCl Confirm 10/12/23 07:39 Ondansetron Hcl 4 Mg/2 Ml Vial Administered 10/12/23 07:40 Dose 4 mg .ROUTE .STK-MED ONE Sterile Water Confirm 10/12/23 02:22 Water For Injection,Sterile 10 Ml Vial Administered 10/12/23 02:23 Dose 10 ml IJ .STK-MED ONE Lab/Rad Data: Laboratory Result Diagrams 10/12/23 02:15 10/12/23 02:15 Laboratory Results 10/12/23 10/12/23 10/12/23 Range/Units 07:05 03:03 02:20 WBC (3.98-10.04) x10^3/uL RBC (3.93-5.22) x10^6/uL Hgb (11.2-15.7) g/dL Hct (34.1-44.9) % MCV (79.4-94.8) fL MCH (25.6-32.2) pg MCHC (32.2-35.5) g/dL RDW (11.7-14.4) % Plt Count (182-369) x10^3/uL MPV (9.4-12.3) fL Gran % (34.0-71.1) % Immature Gran % (Auto) (0.001-0.429) % Nucleat RBC Rel Count (0.00-0.2) % Eos # (Auto) (0.04-0.36) x10^3/uL Immature Gran # (Auto) (0.001-0.031) x10^3u/L Absolute Lymphs (auto) (1.18-3.74) x10^3/uL Absolute Monos (auto) (0.24-0.86) x10^3/uL Absolute Nucleated RBC (0.00-0.012) x10^3u/L Lymphocytes % (19.3-51.7) % Monocytes % (4.7-12.5) % Eosinophils % (0.7-5.8) % Basophils % (0.1-1.2) % Absolute Granulocytes (1.56-6.13) x10^3/uL Basophils # (0.01-0.08) x10^3/uL Puncture Site RRA pCO2 39 (35-45) mmHg pO2 142 H* (75-100) mmHg Base Excess -3.8 L (-2.0-2.0) O2 Saturation 97.6 (94-100) g/dF ABG pH 7.35 (7.35-7.45) ABG HCO3 21.5 L (22-28) ABG O2 Sat (Measured) 99.9 (95-100) % ABG O2 Content 40 % vol Ed Test YES A-a Gradient 94 a/A Ratio 0.60 Hemoglobin 13.3 Carboxyhemoglobin 1.0 (0.0-6.9) % THgb Methemoglobin 1.3 L (1.4-1.5) % Temperature 37.0 C POC O2 Flow Rate 40 % Sodium (135-145) mmol/L Potassium 3.6 (3.5-5.1) mmol/L Chloride (98-107) mmol/L Carbon Dioxide (22-30) mmol/L Anion Gap (5-15) MEQ/L BUN (7-17) mg/dL Creatinine (0.52-1.04) mg/dL Estimated GFR ML/MIN Glucose (74-106) mg/dL Lactic Acid (0.4-2.0) Calcium (8.4-10.2) mg/dL Magnesium (1.6-2.3) mg/dL Total Bilirubin (0.2-1.3) mg/dL AST (14-36) U/L ALT (0-35) U/L Alkaline Phosphatase (38-126) U/L Troponin I 0.055 H* (0.000-0.033) ng/mL NT-Pro-B Natriuret Pep (<300) pg/mL Serum Total Protein (6.3-8.2) g/dL Albumin (3.5-5.0) g/dL Procalcitonin (0.030-0.080) ng/mL Influenza Type A Ag NEGATIVE (NEGATIVE) Influenza Type B Ag NEGATIVE (NEGATIVE) RSV (PCR) NEGATIVE (NEGATIVE) SARS-CoV-2 (PCR) NEGATIVE (NEGATIVE) 07/12/24 07/12/24 07/12/24 Range/Units 02:16 02:15 02:15 WBC (3.98-10.04) x10^3/uL RBC (3.93-5.22) x10^6/uL Hgb (11.2-15.7) g/dL Hct (34.1-44.9) % MCV (79.4-94.8) fL MCH (25.6-32.2) pg MCHC (32.2-35.5) g/dL RDW (11.7-14.4) % Plt Count (182-369) x10^3/uL MPV (9.4-12.3) fL Gran % (34.0-71.1) % Immature Gran % (Auto) (0.001-0.429) % Nucleat RBC Rel Count (0.00-0.2) % Eos # (Auto) (0.04-0.36) x10^3/uL Immature Gran # (Auto) (0.001-0.031) x10^3u/L Absolute Lymphs (auto) (1.18-3.74) x10^3/uL Absolute Monos (auto) (0.24-0.86) x10^3/uL Absolute Nucleated RBC (0.00-0.012) x10^3u/L Lymphocytes % (19.3-51.7) % Monocytes % (4.7-12.5) % Eosinophils % (0.7-5.8) % Basophils % (0.1-1.2) % Absolute Granulocytes (1.56-6.13) x10^3/uL Basophils # (0.01-0.08) x10^3/uL Puncture Site pCO2 (35-45) mmHg pO2 (75-100) mmHg Base Excess (-2.0-2.0) O2 Saturation (94-100) g/dF ABG pH (7.35-7.45) ABG HCO3 (22-28) ABG O2 Sat (Measured) (95-100) % ABG O2 Content % vol Ed Test A-a Gradient a/A Ratio Hemoglobin Carboxyhemoglobin (0.0-6.9) % THgb Methemoglobin (1.4-1.5) % Temperature C POC O2 Flow Rate % Sodium (135-145) mmol/L Potassium (3.5-5.1) mmol/L Chloride (98-107) mmol/L Carbon Dioxide (22-30) mmol/L Anion Gap (5-15) MEQ/L BUN (7-17) mg/dL Creatinine (0.52-1.04) mg/dL Estimated GFR ML/MIN Glucose (74-106) mg/dL Lactic Acid 1.2 (0.4-2.0) Calcium (8.4-10.2) mg/dL Magnesium (1.6-2.3) mg/dL Total Bilirubin (0.2-1.3) mg/dL AST (14-36) U/L ALT (0-35) U/L Alkaline Phosphatase (38-126) U/L Troponin I (0.000-0.033) ng/mL NT-Pro-B Natriuret Pep 465 (<300) pg/mL Serum Total Protein (6.3-8.2) g/dL Albumin (3.5-5.0) g/dL Procalcitonin 0.076 (0.030-0.080) ng/mL Influenza Type A Ag (NEGATIVE) Influenza Type B Ag (NEGATIVE) RSV (PCR) (NEGATIVE) SARS-CoV-2 (PCR) (NEGATIVE) 10/12/23 10/12/23 10/12/23 Range/Units 02:15 02:15 02:15 WBC 13.8 H (3.98-10.04) x10^3/uL RBC 4.42 (3.93-5.22) x10^6/uL Hgb 12.9 (11.2-15.7) g/dL Hct 40.6 (34.1-44.9) % MCV 91.9 (79.4-94.8) fL MCH 29.2 (25.6-32.2) pg MCHC 31.8 L (32.2-35.5) g/dL RDW 13.3 (11.7-14.4) % Plt Count 261 (182-369) x10^3/uL MPV 9.6 (9.4-12.3) fL Gran % 82.8 H (34.0-71.1) % Immature Gran % (Auto) 0.5 H (0.001-0.429) % Nucleat RBC Rel Count 0.0 (0.00-0.2) % Eos # (Auto) 0.22 (0.04-0.36) x10^3/uL Immature Gran # (Auto) 0.07 H (0.001-0.031) x10^3u/L Absolute Lymphs (auto) 1.05 L (1.18-3.74) x10^3/uL Absolute Monos (auto) 1.02 H (0.24-0.86) x10^3/uL Absolute Nucleated RBC 0.00 (0.00-0.012) x10^3u/L Lymphocytes % 7.6 L (19.3-51.7) % Monocytes % 7.4 (4.7-12.5) % Eosinophils % 1.6 (0.7-5.8) % Basophils % 0.1 (0.1-1.2) % Absolute Granulocytes 11.37 H (1.56-6.13) x10^3/uL Basophils # 0.02 (0.01-0.08) x10^3/uL Puncture Site pCO2 (35-45) mmHg pO2 (75-100) mmHg Base Excess (-2.0-2.0) O2 Saturation (94-100) g/dF ABG pH (7.35-7.45) ABG HCO3 (22-28) ABG O2 Sat (Measured) (95-100) % ABG O2 Content % vol De Test A-a Gradient a/A Ratio Hemoglobin Carboxyhemoglobin (0.0-6.9) % THgb Methemoglobin (1.4-1.5) % Temperature C POC O2 Flow Rate % Sodium 137 (135-145) mmol/L Potassium 3.6 (3.5-5.1) mmol/L Chloride 103 (98-107) mmol/L Carbon Dioxide 22 (22-30) mmol/L Anion Gap 16.1 H (5-15) MEQ/L BUN 8 (7-17) mg/dL Creatinine 0.60 (0.52-1.04) mg/dL Estimated GFR 89.6 ML/MIN Glucose 195 H (74-106) mg/dL Lactic Acid (0.4-2.0) Calcium 9.6 (8.4-10.2) mg/dL Magnesium 1.9 (1.6-2.3) mg/dL Total Bilirubin 0.90 (0.2-1.3) mg/dL AST 34 (14-36) U/L ALT 30 (0-35) U/L Alkaline Phosphatase 116 (38-126) U/L Troponin I < 0.012 (0.000-0.033) ng/mL NT-Pro-B Natriuret Pep (<300) pg/mL Serum Total Protein 7.0 (6.3-8.2) g/dL Albumin 4.0 (3.5-5.0) g/dL Procalcitonin (0.030-0.080) ng/mL Influenza Type A Ag (NEGATIVE) Influenza Type B Ag (NEGATIVE) RSV (PCR) (NEGATIVE) SARS-CoV-2 (PCR) (NEGATIVE) - Progress Progress: improved, re-examined Air Movement: fair Blood Culture(s) Obtained: Yes Antibiotics given: Yes Discussed with Dr.: Tania Will see patient in: hospital (observation) Counseled pt/family regarding: lab results, diagnosis, rad results - Progress Progress Note: 10/12/23 06:50 83 years old is evaluated in the ER for increasing shortness of breath. Patient was tachypneic, tachycardic with diffuse wheezing all over. She is given DuoNeb and Solu-Medrol, placed on BiPAP, on reevaluation she is feeling much better with improved work of breathing. EKG is sinus tach with no ST elevations and negative initial troponins. White count of 13, chemistries fairly unremarkable. Normal lactate and procalcitonin. CTA chest is negative for pulmonary embolism, pneumonia or any other acute intrathoracic findings. She is given a dose of Rocephin and Zithromax as well. I believe patient has COPD exacerbation. Discussed with Dr. Dobbins, reviewed history, workup and agreed with admission. I have shared the results of workup with patient and family and plan of admission which they understand and agree. (MEGHNA GE) 10/12/23 08:18 The patient's second troponin increased to 0.055. Patient does not have chest pain. There is no acute findings on the patient's EKG. I spoke with Dr. Connolly. He is the telecardiologist on at this time. I reviewed the patient history, physical findings, EKG results and the troponin results with him. He feels we can place this patient in our hospital facility and we will have the telehospitalist consult him. He states that he feels this consultation can be routine. I will speak with the telehospitalist on-call. 10/12/23 08:41 I spoke with nursing tank house operator Radha Mccullough. She told me that Dr. Nelson, the telehospitalist on-call is aware of the rising troponin level. She still accepts the patient into the hospital setting here at [facility]. I informed Radha Mccullough of the conversation I had with the telemetry violent crimes detective. They are to make a formal consultation with the violent crimes detective. (JOSIAS HERNANDEZ) Medical Desision Making - External Record(s) Reviewed Records reviewed as a part of evaluation & management: Discharge Summary - Discussion of managment Care discussed with:: hospitalist Reviewed:: Test results Agreed on:: Treatment plan, place in obs Will see patient: in hospital - Diagnostic Testing Diagnostic test were ordered, analyzed, and reviewed by me: Yes Radiological Interpretation: Reviewed by me, Teleradiologist Report - Risk of complications The pt has a mod risk of morbidity or mortality based on: Need for prescription drug management The pt has a high risk of morbidity or mortality based on: Decision regarding hospitilization or escalation of hosp level of care - Departure Departure Disposition: Observation Critical Care Time: Yes Critical Care Time(excluding separately billable procedures): Critical 30-74 mins - Departure Clinical Impression: COPD with exacerbation, Elevated troponin Condition: Stable Referrals: KELLY RAMOS DO [Primary Care Provider] - Follow up/PCP as directed Instructions: Chronic Obstructive Pulmonary Disease
[2023-10-12] MEDS ORDERED: solu-MEDROL ONE (02:22)
[2023-10-12] MEDS ORDERED: ROCEPHIN 2 GM/100 ML NACL 2 GM/100 ML IVPB IV ONE (02:22)
[2023-10-12] MEDS ORDERED: Sterile H2O 10 ml IJ ONE (02:22)
[2023-10-12] MEDS: ROCEPHIN 2 GM/100 ML NACL 2 GM/100 ML IVPB IV ONE (02:23)
[2023-10-12] MEDS: solu-MEDROL 125 MG, Sterile H2O 10 ml 2 ML IV ONE (02:23)
[2023-10-12 02:40] LABS: Absolute Neutrophil Ct (ANC) 11.37 x10^3/uL (1.56-6.13); BASOPHIL % 0.1 % (0.1-1.2); Basophil (Absolute #) 0.02 x10^3/uL (0.01-0.08); Eosinophil % 1.6 % (0.7-5.8); Eosinophil (Absolute #) 0.22 x10^3/uL (0.04-0.36); Hematocrit 40.6 % (34.1-44.9); Hemoglobin 12.9 g/dL (11.2-15.7); IMMATURE GRAN # 0.07 x10^3u/L (0.001-0.031); IMMATURE GRAN % 0.5 % (0.001-0.429); Lymphocyte (Absolute #) 1.05 x10^3/uL (1.18-3.74); Lymphocytes % 7.6 % (19.3-51.7); Mean Cell Volume 91.9 fL (79.4-94.8); Mean Corpuscular Hemoglobin 29.2 pg (25.6-32.2); Mean Corpuscular Hgb Concent. 31.8 g/dL (32.2-35.5); Mean Platelet Volume 9.6 fL (9.4-12.3); Monocyte (Absolute #) 1.02 x10^3/uL (0.24-0.86); Monocytes % 7.4 % (4.7-12.5); Neutrophil % 82.8 % (34.0-71.1); Platelet Count 261 x10^3/uL (182-369); Red Blood Count 4.42 x10^6/uL (3.93-5.22); Red Cell Distribution Width 13.3 % (11.7-14.4); White Blood Count 13.8 x10^3/uL (3.98-10.04)
[2023-10-12] MEDS ORDERED: Zithromax 500 MG/ 250 ML NaCl Premix 500 MG/250 ML IVPB IV ONE (02:47)
[2023-10-12 02:55] LABS: ANION GAP 16.1 MEQ/L (5-15); BILIRUBIN,TOTAL 0.9 mg/dL (0.2-1.3); Calcium 9.6 mg/dL (8.4-10.2); Creatinine 1 0.6 mg/dL (0.52-1.04); EST GLOMERULAR FILTRATION RATE 89.6 ML/MIN; MAGNESIUM 1.9 mg/dL (1.6-2.3); Potassium 3.6 mmol/L (3.5-5.1)
[2023-10-12 03:04] LABS: A-aADO2 94; ABG HEMOGLOBIN 13.3; ABG POTASSIUM 3.6 (3.5-5.1); ARTERIAL BLD GAS O2 SATURATION 99.9 % (95-100); ARTERIAL BLOOD GAS BASE EXCESS -3.8 (-2.0-2.0); ARTERIAL BLOOD GAS FIO2 40 %; ARTERIAL BLOOD GAS PCO2 39 mmHg (35-45); ARTERIAL BLOOD GAS PO2 142 mmHg (75-100); ARTERIAL BLOOD GAS pH 7.35 (7.35-7.45); HCO3- 21.5 (22-28); HGB O2 SAT 97.6 g/dF (94-100); Methhemoglobin 1.3 % (1.4-1.5)
[2023-10-12 03:05] LABS: ABG SITE RRA; ALLEN TEST OK? YES; O2 CONTENT 40 % vol
[2023-10-12] MEDS: Zithromax 500 MG/ 250 ML NaCl Premix 500 MG/250 ML IVPB IV STA (03:07)
[2023-10-12 03:16] LABS: INFLUENZA A NEGATIVE (NEGATIVE); INFLUENZA B NEGATIVE (NEGATIVE); RESPIRATORY SYNCTIAL VIRUS NEGATIVE (NEGATIVE); SARS-CoV-2 Xpert Express NEGATIVE (NEGATIVE)
[2023-10-12] MEDS: Sodium Chloride 0.9% 1000 ML 1,000 ML IV SCH (04:58)
--- NOTE | 2023-10-12 05:44 | XRAY ---
CLINICAL HISTORY: sob/PE? COMPARISON: CT dated 05-23-2021. TECHNIQUE: Axial CT images of the chest were acquired with the administration of intravenous contrast. Coronal and sagittal reconstructions were obtained. One of these 3D techniques was utilized: Maximum Intensity Pixel (MIP), 3D Reconstructed Images, Volume Rendered Images, Surface Shaded Rendering. One of the following dose-reduction techniques was utilized for this exam. Automated exposure control, adjustment of the mA and/or kV according to patient size, and use of iterative reconstruction. Total CTDI: 55.68 mGy, DLP: 1124.44 mGy-cm. FINDINGS: Main, right, and left pulmonary arteries as well as lobar and segmental branches appear of normal caliber without evidence of any filling defect. No evidence of pulmonary arterial thrombosis was identified. Mild atherosclerotic changes of the thoracic aorta. Mild diffuse parenchymal interstitial coarsening possibly senile yet there are no consolidative lesions or masses. Right lower lobe peripheral calcified pulmonary nodule stationary from the previous study. Sliding hiatus hernia with gastro-esophageal junction herniating through the esophageal hiatus showing mild uniform mural thickening. Bilateral scattered middle lobe and lingular parenchymal atelectatic bands. No pulmonary consolidation, cavitation, or masses. No free or encysted pleural effusion. Heart size is normal and there is no pericardial effusion. No pathologically enlarged mediastinal, hilar, or axillary lymph node was identified. Patent tracheobronchial tree. Left thyroid lobe hypodense nodule-unchanged. There is no definite mass lesion in the chest wall. The rest of the scanned upper abdomen shows a right renal cortical cyst Bosniak I and a right adrenal nodule, possibly adenoma. Degenerative changes were seen in the visualized spine, and no lytic/sclerotic lesion was seen in the visualized bones to suggest bony metastasis. IMPRESSION: 1. No acute pulmonary thromboembolism. 2. Sliding hiatus hernia with gastro-esophageal junction herniating through the esophageal hiatus. 3. No pulmonary consolidation or masses. 4. No significant changes since the last study. Electronically Signed by: Jada Almanzar MD. (10/12/2023 05:39:35 EDT)
[2023-10-12] MEDS ORDERED: Zofran 4 MG/2 ML VIAL ONE (07:39)
[2023-10-12] MEDS: Zofran 4 MG/2 ML VIAL IV ONE (07:40)
--- NOTE | 2023-10-12 10:04 | PCM.HP ---
<GERMAN MARTINEZ - Last Filed: 10/12/23 10:39> History of Present Illness - Chief Complaint Chief Complaint: copd Date: 10/12/23 History of Present Illness: is a 83 year old female with a history of COPD, DM2, and hypertension presented to ED 10/12/23 with complaints of progressive shortness of breath, non-productive cough, and wheezing starting last night. Patient states she used her home nebulizer multiple times with no relief. On exam lung sounds Of note patient was recently hospitalized 10/08- with with recurrent episode of acute diverticulitis. She was discharged home yesterday on Augmentin. Upon arrival patient was tachypneic, tachycardic, and hypoxic. EKG is sinus tach with no ST elevations. 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 No PE. Lab studies remarkable for leukocytosis at 13.8 and elevated trop of 0.055. Admission for COPD exacerbation. Patient was provided DuoNeb, Solu-Medrol, and placed on BIPAP with noted improvement. Additional medication provided: Ceftriaxone/azithromycin. - Review of Systems Constitutional: Fatigue, Weakness Eyes: No Symptoms Ears, Nose, & Throat: No Symptoms Respiratory: Cough, Short Of Breath, Wheezing Cardiac: No Symptoms Abdominal/Gastrointestinal: Abdominal Pain Genitourinary Symptoms: No Symptoms Musculoskeletal: No Symptoms Skin: No Symptoms Neurological: No Symptoms Psychological: No Symptoms Endocrine: No Symptoms Hematologic/Lymphatic: No Symptoms Immunological/Allergic: No Symptoms Medications & Allergies Home Medications: Home Medication List Albuterol 2.5 mg/3 ml Neb [Proventil 2.5 mg/3 ml Neb] 2.5 mg IH BID 03/08/19 [History Confirmed 10/12/23] Albuterol 8 gm Mdi Hfa [Ventolin Hfa MDI] 8 gm IH QIDPRN PRN 03/08/19 [History Confirmed 10/12/23] Lovastatin 20 mg PO DAILY 03/21/19 [History Confirmed 10/12/23] Aspirin EC 325 mg [Ecotrin 325 MG] 325 mg PO DAILY 03/22/19 [History Confirmed 10/12/23] Calcium Carbonate/Vitamin D3 [Calcium 600-Vit D3 400 Caplet] 1 each PO BID 08/22/19 [History Confirmed 10/12/23] Fluticasone/Umeclidin/Vilanter [Trelegy Ellipta 100-62.5-25] 1 inh PO DAILY 04/02/21 [History Confirmed 10/12/23] Omeprazole 40 mg PO DAILY 04/02/21 [History Confirmed 10/12/23] Amlodipine Besylate 5 mg [Norvasc 5 mg] 5 mg PO DAILY 07/13/23 [History Confirmed 10/12/23] Empagliflozin [Jardiance] 25 mg PO DAILY 07/13/23 [History Confirmed 10/12/23] Semaglutide [Rybelsus] 3.5 mg PO DAILY 07/13/23 [History Confirmed 10/12/23] Lisinopril 20 mg [Zestril 20 MG] 20 mg PO BID 10/09/23 [History Confirmed 10/12/23] Metoprolol Succinate 25 mg Xl* [Toprol-Xl 25MG Tablets] 25 mg PO DAILY 10/09/23 [History Confirmed 10/12/23] Montelukast Sodium [Singulair] 10 mg PO DAILY 10/09/23 [History Confirmed 10/12/23] Amox Tr/Potass Clav. 875 mg [Augmentin 875-125 Tablet] 875 mg PO BID 10 Days #20 tablet 10/11/23 [Rx Confirmed 10/12/23] Allergies/Adverse Reactions: Allergies Allergy/AdvReac Type Severity Reaction Status Date / Time metformin AdvReac Verified 10/12/23 02:17 - Past Medical History Past Medical History: Yes Neurological History: No Pertinent History ENT History: No Pertinent History Cardiac History: High Cholesterol, Hypertension Respiratory History: COPD Endocrine Medical History: Diabetes Type II, Other Musculoskelatal History: Fractures, Osteoporosis GI Medical History: Diverticulitis, GERD, Gallbladder Disease History: No Pertinent History Pyscho-Social History: No Pertinent History Reproductive Disorders: No Pertinent History Comment: seasonal allergies, Post Covid April 2020, ankle fracture - Past Surgical History Past Surgical History: Yes Neuro Surgical History: No Pertinent History Cardiac History: No Pertinent History Respiratory Surgery: No Pertinent History GI Surgical History: Appendectomy, Cholecystectomy, Other Genitourinary Surgical Hx: No Pertinent History Musculskeletal Surgical Hx: No Pertinent History Female Surgical History: Other Other Surgical History: diagnostic open abdominal, ankle fx and surgery, partial hysterectomy Significant Family History: no pertinent family hx - Social History Smoking Status: Former smoker How long have you smoked: 65 years Exposure to second hand smoke: No Alcohol: None Drug Use: none - Social Determinants of Health Will the patient participate in the screening: Yes Do you worry about a steady place to live?: No Do you have any problems with any of the following?: No known problems In the past 12 months,have you had to go without utilities?: No Have you or anyone in your house had to go without enough: No Transportation Issues: No Has anyone in your support network made you feel unsafe?: No Does the patient want assistance with any of the above?: No - Physical Exam Vital Signs: Vital Signs - 24 hr Temp Pulse Resp BP BP Pulse Ox 10/12/23 09:19 97.9 F 115 H 24 174/92 95 10/12/23 09:09 96 10/12/23 08:30 112 H 19 135/83 96 10/12/23 08:00 108 H 21 132/81 97 10/12/23 07:30 113 H 24 133/83 98 10/12/23 07:00 114 H 22 122/86 98 10/12/23 06:52 96 10/12/23 06:30 113 H 26 H 117/67 98 10/12/23 06:00 118 H 23 140/92 97 10/12/23 05:30 119 H 22 112/77 97 10/12/23 05:01 116 H 23 129/66 98 10/12/23 04:00 118 H 22 97/69 98 10/12/23 03:00 125 H 22 123/74 99 10/12/23 02:41 31 H 98 10/12/23 02:31 128 H 30 H 142/86 97 10/12/23 02:15 135 H 30 H 96 10/12/23 02:09 98.3 F 117 H 18 153/100 96 10/12/23 02:04 136 H 30 H 153/100 97 General Appearance: no apparent distress Neurologic Exam: alert, oriented x 3, cooperative Eye Exam: PERRL/EOMI Ears, Nose, Throat Exam: normal ENT inspection Neck Exam: normal inspection Respiratory Exam: diminished breath sounds, crackles/rales, rhonchi Gastrointestinal/Abdomen Exam: soft, normal bowel sounds Pelvic Exam: not done Rectal Exam: deferred Back Exam: normal inspection Extremity Exam: normal inspection Skin Exam: normal color Results - Labs Lab/Micro Results: Lab Results-Last 24 Hours 10/12/23 10/12/23 10/12/23 Range/Units 02:15 02:15 02:15 WBC 13.8 H (3.98-10.04) x10^3/uL RBC 4.42 (3.93-5.22) x10^6/uL Hgb 12.9 (11.2-15.7) g/dL Hct 40.6 (34.1-44.9) % MCV 91.9 (79.4-94.8) fL MCH 29.2 (25.6-32.2) pg MCHC 31.8 L (32.2-35.5) g/dL RDW 13.3 (11.7-14.4) % Plt Count 261 (182-369) x10^3/uL MPV 9.6 (9.4-12.3) fL Gran % 82.8 H (34.0-71.1) % Immature Gran % (Auto) 0.5 H (0.001-0.429) % Nucleat RBC Rel Count 0.0 (0.00-0.2) % Eos # (Auto) 0.22 (0.04-0.36) x10^3/uL Immature Gran # (Auto) 0.07 H (0.001-0.031) x10^3u/L Absolute Lymphs (auto) 1.05 L (1.18-3.74) x10^3/uL Absolute Monos (auto) 1.02 H (0.24-0.86) x10^3/uL Absolute Nucleated RBC 0.00 (0.00-0.012) x10^3u/L Lymphocytes % 7.6 L (19.3-51.7) % Monocytes % 7.4 (4.7-12.5) % Eosinophils % 1.6 (0.7-5.8) % Basophils % 0.1 (0.1-1.2) % Absolute Granulocytes 11.37 H (1.56-6.13) x10^3/uL Basophils # 0.02 (0.01-0.08) x10^3/uL Puncture Site pCO2 (35-45) mmHg pO2 (75-100) mmHg Base Excess (-2.0-2.0) O2 Saturation (94-100) g/dF ABG pH (7.35-7.45) ABG HCO3 (22-28) ABG O2 Sat (Measured) (95-100) % ABG O2 Content % vol Ed Test A-a Gradient a/A Ratio Hemoglobin Carboxyhemoglobin (0.0-6.9) % THgb Methemoglobin (1.4-1.5) % Temperature C POC O2 Flow Rate % Sodium 137 (135-145) mmol/L Potassium 3.6 (3.5-5.1) mmol/L Chloride 103 (98-107) mmol/L Carbon Dioxide 22 (22-30) mmol/L Anion Gap 16.1 H (5-15) MEQ/L BUN 8 (7-17) mg/dL Creatinine 0.60 (0.52-1.04) mg/dL Estimated GFR 89.6 ML/MIN Glucose 195 H (74-106) mg/dL Lactic Acid (0.4-2.0) Calcium 9.6 (8.4-10.2) mg/dL Magnesium 1.9 (1.6-2.3) mg/dL Total Bilirubin 0.90 (0.2-1.3) mg/dL AST 34 (14-36) U/L ALT 30 (0-35) U/L Alkaline Phosphatase 116 (38-126) U/L Troponin I < 0.012 (0.000-0.033) ng/mL NT-Pro-B Natriuret Pep (<300) pg/mL Serum Total Protein 7.0 (6.3-8.2) g/dL Albumin 4.0 (3.5-5.0) g/dL Procalcitonin (0.030-0.080) ng/mL Influenza Type A Ag (NEGATIVE) Influenza Type B Ag (NEGATIVE) RSV (PCR) (NEGATIVE) SARS-CoV-2 (PCR) (NEGATIVE) 10/12/23 10/12/23 10/12/23 Range/Units 02:15 02:15 02:16 WBC (3.98-10.04) x10^3/uL RBC (3.93-5.22) x10^6/uL Hgb (11.2-15.7) g/dL Hct (34.1-44.9) % MCV (79.4-94.8) fL MCH (25.6-32.2) pg MCHC (32.2-35.5) g/dL RDW (11.7-14.4) % Plt Count (182-369) x10^3/uL MPV (9.4-12.3) fL Gran % (34.0-71.1) % Immature Gran % (Auto) (0.001-0.429) % Nucleat RBC Rel Count (0.00-0.2) % Eos # (Auto) (0.04-0.36) x10^3/uL Immature Gran # (Auto) (0.001-0.031) x10^3u/L Absolute Lymphs (auto) (1.18-3.74) x10^3/uL Absolute Monos (auto) (0.24-0.86) x10^3/uL Absolute Nucleated RBC (0.00-0.012) x10^3u/L Lymphocytes % (19.3-51.7) % Monocytes % (4.7-12.5) % Eosinophils % (0.7-5.8) % Basophils % (0.1-1.2) % Absolute Granulocytes (1.56-6.13) x10^3/uL Basophils # (0.01-0.08) x10^3/uL Puncture Site pCO2 (35-45) mmHg pO2 (75-100) mmHg Base Excess (-2.0-2.0) O2 Saturation (94-100) g/dF ABG pH (7.35-7.45) ABG HCO3 (22-28) ABG O2 Sat (Measured) (95-100) % ABG O2 Content % vol Ed Test A-a Gradient a/A Ratio Hemoglobin Carboxyhemoglobin (0.0-6.9) % THgb Methemoglobin (1.4-1.5) % Temperature C POC O2 Flow Rate % Sodium (135-145) mmol/L Potassium (3.5-5.1) mmol/L Chloride (98-107) mmol/L Carbon Dioxide (22-30) mmol/L Anion Gap (5-15) MEQ/L BUN (7-17) mg/dL Creatinine (0.52-1.04) mg/dL Estimated GFR ML/MIN Glucose (74-106) mg/dL Lactic Acid 1.2 (0.4-2.0) Calcium (8.4-10.2) mg/dL Magnesium (1.6-2.3) mg/dL Total Bilirubin (0.2-1.3) mg/dL AST (14-36) U/L ALT (0-35) U/L Alkaline Phosphatase (38-126) U/L Troponin I (0.000-0.033) ng/mL NT-Pro-B Natriuret Pep 465 (<300) pg/mL Serum Total Protein (6.3-8.2) g/dL Albumin (3.5-5.0) g/dL Procalcitonin 0.076 (0.030-0.080) ng/mL Influenza Type A Ag (NEGATIVE) Influenza Type B Ag (NEGATIVE) RSV (PCR) (NEGATIVE) SARS-CoV-2 (PCR) (NEGATIVE) 10/12/23 10/12/23 10/12/23 Range/Units 02:20 03:03 07:05 WBC (3.98-10.04) x10^3/uL RBC (3.93-5.22) x10^6/uL Hgb (11.2-15.7) g/dL Hct (34.1-44.9) % MCV (79.4-94.8) fL MCH (25.6-32.2) pg MCHC (32.2-35.5) g/dL RDW (11.7-14.4) % Plt Count (182-369) x10^3/uL MPV (9.4-12.3) fL Gran % (34.0-71.1) % Immature Gran % (Auto) (0.001-0.429) % Nucleat RBC Rel Count (0.00-0.2) % Eos # (Auto) (0.04-0.36) x10^3/uL Immature Gran # (Auto) (0.001-0.031) x10^3u/L Absolute Lymphs (auto) (1.18-3.74) x10^3/uL Absolute Monos (auto) (0.24-0.86) x10^3/uL Absolute Nucleated RBC (0.00-0.012) x10^3u/L Lymphocytes % (19.3-51.7) % Monocytes % (4.7-12.5) % Eosinophils % (0.7-5.8) % Basophils % (0.1-1.2) % Absolute Granulocytes (1.56-6.13) x10^3/uL Basophils # (0.01-0.08) x10^3/uL Puncture Site RRA pCO2 39 (35-45) mmHg pO2 142 H* (75-100) mmHg Base Excess -3.8 L (-2.0-2.0) O2 Saturation 97.6 (94-100) g/dF ABG pH 7.35 (7.35-7.45) ABG HCO3 21.5 L (22-28) ABG O2 Sat (Measured) 99.9 (95-100) % ABG O2 Content 40 % vol Ed Test YES A-a Gradient 94 a/A Ratio 0.60 Hemoglobin 13.3 Carboxyhemoglobin 1.0 (0.0-6.9) % THgb Methemoglobin 1.3 L (1.4-1.5) % Temperature 37.0 C POC O2 Flow Rate 40 % Sodium (135-145) mmol/L Potassium 3.6 (3.5-5.1) mmol/L Chloride (98-107) mmol/L Carbon Dioxide (22-30) mmol/L Anion Gap (5-15) MEQ/L BUN (7-17) mg/dL Creatinine (0.52-1.04) mg/dL Estimated GFR ML/MIN Glucose (74-106) mg/dL Lactic Acid (0.4-2.0) Calcium (8.4-10.2) mg/dL Magnesium (1.6-2.3) mg/dL Total Bilirubin (0.2-1.3) mg/dL AST (14-36) U/L ALT (0-35) U/L Alkaline Phosphatase (38-126) U/L Troponin I 0.055 H* (0.000-0.033) ng/mL NT-Pro-B Natriuret Pep (<300) pg/mL Serum Total Protein (6.3-8.2) g/dL Albumin (3.5-5.0) g/dL Procalcitonin (0.030-0.080) ng/mL Influenza Type A Ag NEGATIVE (NEGATIVE) Influenza Type B Ag NEGATIVE (NEGATIVE) RSV (PCR) NEGATIVE (NEGATIVE) SARS-CoV-2 (PCR) NEGATIVE (NEGATIVE) - Radiology Impressions Radiology Exams & Impressions: Radiology Procedures Category Date Time Status CHEST WITH CONTRAST [CT] Stat Exams 10/12/23 04:42 Completed - Other Procedures and Tests Respiratory Therapy 10/12/23 09:09 Respiratory Therapy Consult ONCE 10/12/23 09:49 RT Screen per Nursing Assess ONCE Assessment/Plan (1) COPD with exacerbation Current Visit: Yes Status: Acute Assessment & Plan: -Supplemental oxygen with goal spo2 >91% -baseline 3L -RT eval -Nebs q4h PRN -Viral resp briscoe- negative -CT with no acute findings -IS -solumedrol 40mg bid -ABG/BIPAP if significant hypoxia/lethargy - Continue Augmentin Code(s): J44.1 - CHRONIC OBSTRUCTIVE PULMONARY DISEASE W (ACUTE) EXACERBATION (2) Elevated troponin Current Visit: Yes Status: Acute Assessment & Plan: -Most likely demand - EKG is sinus tach with no ST elevations -cardiology following Code(s): R79.89 - OTHER SPECIFIED ABNORMAL FINDINGS OF BLOOD CHEMISTRY (3) Sigmoid diverticulitis Current Visit: No Status: Acute Assessment & Plan: -Prior imaging reviewed - CT with colonic diverticulosis with fat stranding around the distal and proximal sigmoid colon, consistent with acute diverticulitis - no evidence of perforation or abscess -Patient tolerating diet -supportive therapies -anti-emetics/pain control -continue Augmentin Code(s): K57.32 - DVTRCLI OF LG INT W/O PERFORATION OR ABSCESS W/O BLEEDING (4) Type II diabetes mellitus Current Visit: No Status: Acute Qualifiers: Diabetes mellitus long term care pharmacist insulin use: without intermediate use Diabetes mellitus complication status: without complication Qualified Code(s): E11.9 - Type 2 diabetes mellitus without complications Assessment & Plan: -Carb controlled -SSI -A1c at 7.37 (5) HTN (hypertension) Current Visit: No Status: Chronic Assessment & Plan: blood pressure well-controlled Continue lisinopril 20 BID, Norvasc 5 CODE STATUS: Full code Diet: Carb controlled Prophylaxis: Lovenox Code(s): I10 - ESSENTIAL (PRIMARY) HYPERTENSION <HILARIANAREN - Last Filed: 10/12/23 21:09> History of Present Illness - Chief Complaint History of Present Illness: is a 83 year old female. - Physical Exam Vital Signs: Vital Signs - 24 hr Temp Pulse Resp BP BP Pulse Ox 10/12/23 20:00 98.6 F 117 H 19 135/79 94 L 10/12/23 19:09 73 20 98 10/12/23 16:00 97.8 F 107 H 16 139/66 99 10/12/23 12:00 97.9 F 103 H 16 130/73 93 L 10/12/23 10:44 112 H 24 95 10/12/23 10:03 112 H 24 95 10/12/23 09:19 97.9 F 115 H 24 174/92 95 10/12/23 09:09 96 10/12/23 08:30 112 H 19 135/83 96 10/12/23 08:00 108 H 21 132/81 97 10/12/23 07:30 113 H 24 133/83 98 10/12/23 07:00 114 H 22 122/86 98 10/12/23 06:52 96 10/12/23 06:30 113 H 26 H 117/67 98 10/12/23 06:00 118 H 23 140/92 97 10/12/23 05:30 119 H 22 112/77 97 10/12/23 05:01 116 H 23 129/66 98 10/12/23 04:00 118 H 22 97/69 98 10/12/23 03:00 125 H 22 123/74 99 10/12/23 02:41 31 H 98 10/12/23 02:31 128 H 30 H 142/86 97 10/12/23 02:15 135 H 30 H 96 10/12/23 02:09 98.3 F 117 H 18 153/100 96 10/12/23 02:04 136 H 30 H 153/100 97 Results - Labs Lab/Micro Results: Lab Results-Last 24 Hours 07/12/24 07/12/24 07/12/24 Range/Units 02:15 02:15 02:15 WBC 13.8 H (3.98-10.04) x10^3/uL RBC 4.42 (3.93-5.22) x10^6/uL Hgb 12.9 (11.2-15.7) g/dL Hct 40.6 (34.1-44.9) % MCV 91.9 (79.4-94.8) fL MCH 29.2 (25.6-32.2) pg MCHC 31.8 L (32.2-35.5) g/dL RDW 13.3 (11.7-14.4) % Plt Count 261 (182-369) x10^3/uL MPV 9.6 (9.4-12.3) fL Gran % 82.8 H (34.0-71.1) % Immature Gran % (Auto) 0.5 H (0.001-0.429) % Nucleat RBC Rel Count 0.0 (0.00-0.2) % Eos # (Auto) 0.22 (0.04-0.36) x10^3/uL Immature Gran # (Auto) 0.07 H (0.001-0.031) x10^3u/L Absolute Lymphs (auto) 1.05 L (1.18-3.74) x10^3/uL Absolute Monos (auto) 1.02 H (0.24-0.86) x10^3/uL Absolute Nucleated RBC 0.00 (0.00-0.012) x10^3u/L Lymphocytes % 7.6 L (19.3-51.7) % Monocytes % 7.4 (4.7-12.5) % Eosinophils % 1.6 (0.7-5.8) % Basophils % 0.1 (0.1-1.2) % Absolute Granulocytes 11.37 H (1.56-6.13) x10^3/uL Basophils # 0.02 (0.01-0.08) x10^3/uL Puncture Site pCO2 (35-45) mmHg pO2 (75-100) mmHg Base Excess (-2.0-2.0) O2 Saturation (94-100) g/dF ABG pH (7.35-7.45) ABG HCO3 (22-28) ABG O2 Sat (Measured) (95-100) % ABG O2 Content % vol Ed Test A-a Gradient a/A Ratio Hemoglobin Carboxyhemoglobin (0.0-6.9) % THgb Methemoglobin (1.4-1.5) % Temperature C POC O2 Flow Rate % Sodium 137 (135-145) mmol/L Potassium 3.6 (3.5-5.1) mmol/L Chloride 103 (98-107) mmol/L Carbon Dioxide 22 (22-30) mmol/L Anion Gap 16.1 H (5-15) MEQ/L BUN 8 (7-17) mg/dL Creatinine 0.60 (0.52-1.04) mg/dL Estimated GFR 89.6 ML/MIN Glucose 195 H (74-106) mg/dL POC Glucometer (74 to 106) mg/dL Lactic Acid (0.4-2.0) Calcium 9.6 (8.4-10.2) mg/dL Magnesium 1.9 (1.6-2.3) mg/dL Total Bilirubin 0.90 (0.2-1.3) mg/dL AST 34 (14-36) U/L ALT 30 (0-35) U/L Alkaline Phosphatase 116 (38-126) U/L Troponin I < 0.012 (0.000-0.033) ng/mL NT-Pro-B Natriuret Pep (<300) pg/mL Serum Total Protein 7.0 (6.3-8.2) g/dL Albumin 4.0 (3.5-5.0) g/dL Procalcitonin (0.030-0.080) ng/mL Influenza Type A Ag (NEGATIVE) Influenza Type B Ag (NEGATIVE) RSV (PCR) (NEGATIVE) SARS-CoV-2 (PCR) (NEGATIVE) 10/12/23 10/12/23 10/12/23 Range/Units 02:15 02:15 02:16 WBC (3.98-10.04) x10^3/uL RBC (3.93-5.22) x10^6/uL Hgb (11.2-15.7) g/dL Hct (34.1-44.9) % MCV (79.4-94.8) fL MCH (25.6-32.2) pg MCHC (32.2-35.5) g/dL RDW (11.7-14.4) % Plt Count (182-369) x10^3/uL MPV (9.4-12.3) fL Gran % (34.0-71.1) % Immature Gran % (Auto) (0.001-0.429) % Nucleat RBC Rel Count (0.00-0.2) % Eos # (Auto) (0.04-0.36) x10^3/uL Immature Gran # (Auto) (0.001-0.031) x10^3u/L Absolute Lymphs (auto) (1.18-3.74) x10^3/uL Absolute Monos (auto) (0.24-0.86) x10^3/uL Absolute Nucleated RBC (0.00-0.012) x10^3u/L Lymphocytes % (19.3-51.7) % Monocytes % (4.7-12.5) % Eosinophils % (0.7-5.8) % Basophils % (0.1-1.2) % Absolute Granulocytes (1.56-6.13) x10^3/uL Basophils # (0.01-0.08) x10^3/uL Puncture Site pCO2 (35-45) mmHg pO2 (75-100) mmHg Base Excess (-2.0-2.0) O2 Saturation (94-100) g/dF ABG pH (7.35-7.45) ABG HCO3 (22-28) ABG O2 Sat (Measured) (95-100) % ABG O2 Content % vol Ed Test A-a Gradient a/A Ratio Hemoglobin Carboxyhemoglobin (0.0-6.9) % THgb Methemoglobin (1.4-1.5) % Temperature C POC O2 Flow Rate % Sodium (135-145) mmol/L Potassium (3.5-5.1) mmol/L Chloride (98-107) mmol/L Carbon Dioxide (22-30) mmol/L Anion Gap (5-15) MEQ/L BUN (7-17) mg/dL Creatinine (0.52-1.04) mg/dL Estimated GFR ML/MIN Glucose (74-106) mg/dL POC Glucometer (74 to 106) mg/dL Lactic Acid 1.2 (0.4-2.0) Calcium (8.4-10.2) mg/dL Magnesium (1.6-2.3) mg/dL Total Bilirubin (0.2-1.3) mg/dL AST (14-36) U/L ALT (0-35) U/L Alkaline Phosphatase (38-126) U/L Troponin I (0.000-0.033) ng/mL NT-Pro-B Natriuret Pep 465 (<300) pg/mL Serum Total Protein (6.3-8.2) g/dL Albumin (3.5-5.0) g/dL Procalcitonin 0.076 (0.030-0.080) ng/mL Influenza Type A Ag (NEGATIVE) Influenza Type B Ag (NEGATIVE) RSV (PCR) (NEGATIVE) SARS-CoV-2 (PCR) (NEGATIVE) 10/12/23 10/12/23 10/12/23 Range/Units 02:20 03:03 07:05 WBC (3.98-10.04) x10^3/uL RBC (3.93-5.22) x10^6/uL Hgb (11.2-15.7) g/dL Hct (34.1-44.9) % MCV (79.4-94.8) fL MCH (25.6-32.2) pg MCHC (32.2-35.5) g/dL RDW (11.7-14.4) % Plt Count (182-369) x10^3/uL MPV (9.4-12.3) fL Gran % (34.0-71.1) % Immature Gran % (Auto) (0.001-0.429) % Nucleat RBC Rel Count (0.00-0.2) % Eos # (Auto) (0.04-0.36) x10^3/uL Immature Gran # (Auto) (0.001-0.031) x10^3u/L Absolute Lymphs (auto) (1.18-3.74) x10^3/uL Absolute Monos (auto) (0.24-0.86) x10^3/uL Absolute Nucleated RBC (0.00-0.012) x10^3u/L Lymphocytes % (19.3-51.7) % Monocytes % (4.7-12.5) % Eosinophils % (0.7-5.8) % Basophils % (0.1-1.2) % Absolute Granulocytes (1.56-6.13) x10^3/uL Basophils # (0.01-0.08) x10^3/uL Puncture Site RRA pCO2 39 (35-45) mmHg pO2 142 H* (75-100) mmHg Base Excess -3.8 L (-2.0-2.0) O2 Saturation 97.6 (94-100) g/dF ABG pH 7.35 (7.35-7.45) ABG HCO3 21.5 L (22-28) ABG O2 Sat (Measured) 99.9 (95-100) % ABG O2 Content 40 % vol Ed Test YES A-a Gradient 94 a/A Ratio 0.60 Hemoglobin 13.3 Carboxyhemoglobin 1.0 (0.0-6.9) % THgb Methemoglobin 1.3 L (1.4-1.5) % Temperature 37.0 C POC O2 Flow Rate 40 % Sodium (135-145) mmol/L Potassium 3.6 (3.5-5.1) mmol/L Chloride (98-107) mmol/L Carbon Dioxide (22-30) mmol/L Anion Gap (5-15) MEQ/L BUN (7-17) mg/dL Creatinine (0.52-1.04) mg/dL Estimated GFR ML/MIN Glucose (74-106) mg/dL POC Glucometer (74 to 106) mg/dL Lactic Acid (0.4-2.0) Calcium (8.4-10.2) mg/dL Magnesium (1.6-2.3) mg/dL Total Bilirubin (0.2-1.3) mg/dL AST (14-36) U/L ALT (0-35) U/L Alkaline Phosphatase (38-126) U/L Troponin I 0.055 H* (0.000-0.033) ng/mL NT-Pro-B Natriuret Pep (<300) pg/mL Serum Total Protein (6.3-8.2) g/dL Albumin (3.5-5.0) g/dL Procalcitonin (0.030-0.080) ng/mL Influenza Type A Ag NEGATIVE (NEGATIVE) Influenza Type B Ag NEGATIVE (NEGATIVE) RSV (PCR) NEGATIVE (NEGATIVE) SARS-CoV-2 (PCR) NEGATIVE (NEGATIVE) 10/12/23 10/12/23 10/12/23 Range/Units 10:42 12:04 16:09 WBC (3.98-10.04) x10^3/uL RBC (3.93-5.22) x10^6/uL Hgb (11.2-15.7) g/dL Hct (34.1-44.9) % MCV (79.4-94.8) fL MCH (25.6-32.2) pg MCHC (32.2-35.5) g/dL RDW (11.7-14.4) % Plt Count (182-369) x10^3/uL MPV (9.4-12.3) fL Gran % (34.0-71.1) % Immature Gran % (Auto) (0.001-0.429) % Nucleat RBC Rel Count (0.00-0.2) % Eos # (Auto) (0.04-0.36) x10^3/uL Immature Gran # (Auto) (0.001-0.031) x10^3u/L Absolute Lymphs (auto) (1.18-3.74) x10^3/uL Absolute Monos (auto) (0.24-0.86) x10^3/uL Absolute Nucleated RBC (0.00-0.012) x10^3u/L Lymphocytes % (19.3-51.7) % Monocytes % (4.7-12.5) % Eosinophils % (0.7-5.8) % Basophils % (0.1-1.2) % Absolute Granulocytes (1.56-6.13) x10^3/uL Basophils # (0.01-0.08) x10^3/uL Puncture Site pCO2 (35-45) mmHg pO2 (75-100) mmHg Base Excess (-2.0-2.0) O2 Saturation (94-100) g/dF ABG pH (7.35-7.45) ABG HCO3 (22-28) ABG O2 Sat (Measured) (95-100) % ABG O2 Content % vol Ed Test A-a Gradient a/A Ratio Hemoglobin Carboxyhemoglobin (0.0-6.9) % THgb Methemoglobin (1.4-1.5) % Temperature C POC O2 Flow Rate % Sodium (135-145) mmol/L Potassium (3.5-5.1) mmol/L Chloride (98-107) mmol/L Carbon Dioxide (22-30) mmol/L Anion Gap (5-15) MEQ/L BUN (7-17) mg/dL Creatinine (0.52-1.04) mg/dL Estimated GFR ML/MIN Glucose (74-106) mg/dL POC Glucometer 197 H 163 H (74 to 106) mg/dL Lactic Acid (0.4-2.0) Calcium (8.4-10.2) mg/dL Magnesium (1.6-2.3) mg/dL Total Bilirubin (0.2-1.3) mg/dL AST (14-36) U/L ALT (0-35) U/L Alkaline Phosphatase (38-126) U/L Troponin I 0.039 H* (0.000-0.033) ng/mL NT-Pro-B Natriuret Pep (<300) pg/mL Serum Total Protein (6.3-8.2) g/dL Albumin (3.5-5.0) g/dL Procalcitonin (0.030-0.080) ng/mL Influenza Type A Ag (NEGATIVE) Influenza Type B Ag (NEGATIVE) RSV (PCR) (NEGATIVE) SARS-CoV-2 (PCR) (NEGATIVE) 10/12/23 Range/Units 18:59 WBC (3.98-10.04) x10^3/uL RBC (3.93-5.22) x10^6/uL Hgb (11.2-15.7) g/dL Hct (34.1-44.9) % MCV (79.4-94.8) fL MCH (25.6-32.2) pg MCHC (32.2-35.5) g/dL RDW (11.7-14.4) % Plt Count (182-369) x10^3/uL MPV (9.4-12.3) fL Gran % (34.0-71.1) % Immature Gran % (Auto) (0.001-0.429) % Nucleat RBC Rel Count (0.00-0.2) % Eos # (Auto) (0.04-0.36) x10^3/uL Immature Gran # (Auto) (0.001-0.031) x10^3u/L Absolute Lymphs (auto) (1.18-3.74) x10^3/uL Absolute Monos (auto) (0.24-0.86) x10^3/uL Absolute Nucleated RBC (0.00-0.012) x10^3u/L Lymphocytes % (19.3-51.7) % Monocytes % (4.7-12.5) % Eosinophils % (0.7-5.8) % Basophils % (0.1-1.2) % Absolute Granulocytes (1.56-6.13) x10^3/uL Basophils # (0.01-0.08) x10^3/uL Puncture Site pCO2 (35-45) mmHg pO2 (75-100) mmHg Base Excess (-2.0-2.0) O2 Saturation (94-100) g/dF ABG pH (7.35-7.45) ABG HCO3 (22-28) ABG O2 Sat (Measured) (95-100) % ABG O2 Content % vol Ed Test A-a Gradient a/A Ratio Hemoglobin Carboxyhemoglobin (0.0-6.9) % THgb Methemoglobin (1.4-1.5) % Temperature C POC O2 Flow Rate % Sodium (135-145) mmol/L Potassium (3.5-5.1) mmol/L Chloride (98-107) mmol/L Carbon Dioxide (22-30) mmol/L Anion Gap (5-15) MEQ/L BUN (7-17) mg/dL Creatinine (0.52-1.04) mg/dL Estimated GFR ML/MIN Glucose (74-106) mg/dL POC Glucometer 222 H (74 to 106) mg/dL Lactic Acid (0.4-2.0) Calcium (8.4-10.2) mg/dL Magnesium (1.6-2.3) mg/dL Total Bilirubin (0.2-1.3) mg/dL AST (14-36) U/L ALT (0-35) U/L Alkaline Phosphatase (38-126) U/L Troponin I (0.000-0.033) ng/mL NT-Pro-B Natriuret Pep (<300) pg/mL Serum Total Protein (6.3-8.2) g/dL Albumin (3.5-5.0) g/dL Procalcitonin (0.030-0.080) ng/mL Influenza Type A Ag (NEGATIVE) Influenza Type B Ag (NEGATIVE) RSV (PCR) (NEGATIVE) SARS-CoV-2 (PCR) (NEGATIVE) Accuchecks Date 10/12/23 Date 10/12/23 Time 16:15 Time 12:08 - Radiology Impressions Radiology Exams & Impressions: Radiology Procedures Category Date Time Status CHEST WITH CONTRAST [CT] Stat Exams 10/12/23 04:42 Completed - Other Procedures and Tests Respiratory Therapy 10/12/23 02:15 Respiratory Therapy Assessment DAILY 10/12/23 09:53 Oxygen Nasal Cannula 4 lpm 10/12/23 09:55 BiPap/CPAP ROUTINE 10/12/23 10:44 Incentive Spirometry UD RACQUEL Encounter - RACQUEL Encounter Attestation RACQUEL Encounter Attestation: "IhavepersonallyseenandexYG Cruz andhavediscussed pertinent aspects of their care with German Martinez and agree with the history, physical exam (any modifications based on my personal exam will be noted below), assessment, and plan as outlined in original note. Please see immediately below for my summary of findings and additional assessment and plan along with any meaningful corrections/explanations to the Subjective/Objective portions of the RACQUEL note will be noted." My portion of the encounter took place via telemedicine. -Patient discharged yesterday after hospitalization for diverticulitis, now returns with hypoxia, shortness of breath due to COPD exacerbation. Elevated troponin likely due to demand ischemia. Will initiate nebs, IV steroids and oxygen support.
[2023-10-12] MEDS ORDERED: Zofran 4 MG/2 ML VIAL IV PRN (10:44)
[2023-10-12] MEDS: PROVENTIL 2.5 MG/3 ML NEB IH SCH (10:48)
[2023-10-12] MEDS: ENOXAPARIN SODIUM SQ SCH (12:17)
[2023-10-12] MEDS: HUMALOG SQ PRN (12:17)
[2023-10-12] MEDS: DUONEB 0.5-3 MG/3 ml Neb IH SCH (15:26)
[2023-10-12] MEDS: TYLENOL 325 MG PO PRN (17:21)
[2023-10-12] MEDS ORDERED: solu-MEDROL 30 MG, Sterile H2O 10 ml 1 ML IV SCH (22:00)
[2023-10-13 05:25] LABS: Absolute Neutrophil Ct (ANC) 6.75 x10^3/uL (1.56-6.13); BASOPHIL % 0.1 % (0.1-1.2); Basophil (Absolute #) 0.01 x10^3/uL (0.01-0.08); Eosinophil % 0.7 % (0.7-5.8); Eosinophil (Absolute #) 0.06 x10^3/uL (0.04-0.36); Hematocrit 35.1 % (34.1-44.9); Hemoglobin 11.1 g/dL (11.2-15.7); IMMATURE GRAN # 0.04 x10^3u/L (0.001-0.031); IMMATURE GRAN % 0.4 % (0.001-0.429); Lymphocyte (Absolute #) 1.39 x10^3/uL (1.18-3.74); Lymphocytes % 15.3 % (19.3-51.7); Mean Cell Volume 90.9 fL (79.4-94.8); Mean Corpuscular Hemoglobin 28.8 pg (25.6-32.2); Mean Corpuscular Hgb Concent. 31.6 g/dL (32.2-35.5); Mean Platelet Volume 9.4 fL (9.4-12.3); Monocyte (Absolute #) 0.85 x10^3/uL (0.24-0.86); Monocytes % 9.3 % (4.7-12.5); Neutrophil % 74.2 % (34.0-71.1); Platelet Count 235 x10^3/uL (182-369); Red Blood Count 3.86 x10^6/uL (3.93-5.22); Red Cell Distribution Width 13.8 % (11.7-14.4); White Blood Count 9.1 x10^3/uL (3.98-10.04)
[2023-10-13 05:50] LABS: ALBUMIN 3.3 g/dL (3.5-5.0); ANION GAP 8.5 MEQ/L (5-15); BILIRUBIN,TOTAL 0.4 mg/dL (0.2-1.3); Calcium 9.3 mg/dL (8.4-10.2); Creatinine 1 0.64 mg/dL (0.52-1.04); EST GLOMERULAR FILTRATION RATE 88.2 ML/MIN; Potassium 3.5 mmol/L (3.5-5.1); Total Protein 5.8 g/dL (6.3-8.2)
[2023-10-13] MEDS ORDERED: VENTOLIN COMMON CANISTER IH PRN (07:53)
--- NOTE | 2023-10-13 09:28 | PCM.NOTE ---
Date and Time: 10/13/23921 Subjective Assessment: HPI: is a 83 year old female with a history of COPD, DM2, and hypertension presented to ED 10/12/23 with complaints of progressive shortness of breath, non-productive cough, and wheezing starting 10/11/23 admitted for COPD exacerbtion. Recent admission 10/09/23 -10/11/23 for acute diverticulitis on Augmentin. Upon arrival patient was tachypneic, tachycardic, and hypoxic. EKG is sinus tach with no ST elevations. 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 No PE. Lab studies remarkable for leukocytosis at 13.8 and elevated trop of 0.055. Admission for COPD exacerbation. Patient was provided DuoNeb, Solu-Medrol, and placed on BIPAP with noted improvement. Additional medication provided: Ceftriaxone/azithromycin. 10/13/23: Met with patient bedside. Endorses continued dyspnea, non-productive cough, and wheezing. Lung sounds are noted diminished with exp wheezing t/o. She is on her baseline oxygen of 3L. Labs and vitals stable. Plan to continue abx/steroids. Add mucinex. Mild abdominal pain, no nausea, and able to tolerate full diet. Did have loose stools last night. No blood/mucus noted. Denies fever,cp, abdominal pain, MALONE, dizziness, N/V/D. - Review of Systems Constitutional: Fatigue, Weakness Eyes: No Symptoms Ears, Nose, & Throat: No Symptoms Respiratory: Cough, Short Of Breath Cardiac: No Symptoms Abdominal/Gastrointestinal: Abdominal Pain Genitourinary Symptoms: No Symptoms Musculoskeletal: No Symptoms Skin: No Symptoms Neurological: No Symptoms Psychological: No Symptoms Endocrine: No Symptoms Hematologic/Lymphatic: No Symptoms Immunological/Allergic: No Symptoms Objective Exam General Appearance: no apparent distress Neurologic Exam: alert, oriented x 3, cooperative Skin Exam: normal color Eye Exam: PERRL Ears, Nose, Throat Exam: normal ENT inspection Neck Exam: normal inspection Respiratory Exam: diminished breath sounds, wheezing Cardiovascular Exam: regular rate/rhythm, normal heart sounds Gastrointestinal/Abdomen Exam: soft, normal bowel sounds, tenderness (mid epigastric) Extremity Exam: normal inspection Back Exam: normal inspection Pelvic Exam: deferred Rectal Exam: deferred Objective Data Vital Signs: Vital Signs - 24 hr Temp Pulse Resp BP Pulse Ox 10/13/23 07:31 97.5 F 95 H 20 134/66 97 10/13/23 07:20 106 H 20 96 10/13/23 04:00 97.9 F 98 H 22 114/57 96 10/13/23 01:17 105 H 18 100 10/12/23 23:46 98.1 F 104 H 19 130/60 97 10/12/23 20:00 98.6 F 117 H 19 135/79 94 L 10/12/23 19:09 73 20 98 10/12/23 16:00 97.8 F 107 H 16 139/66 99 10/12/23 12:00 97.9 F 103 H 16 130/73 93 L 10/12/23 10:44 112 H 24 95 10/12/23 10:03 112 H 24 95 Pain Assessment - Last Documented Pain Intensity 2 Pain Scale Used 0-10 Pain Scale Intake and Output: Intake & Output 10/10/23 10/11/23 10/12/23 10/13/23 11:59 11:59 11:59 11:59 Intake Total 1240 Output Total 300 Balance 940 Weight 97.9 kg Lab Results: Lab Results-Last 24 Hours 10/12/23 10/12/23 10/12/23 Range/Units 10:42 12:04 16:09 WBC (3.98-10.04) x10^3/uL RBC (3.93-5.22) x10^6/uL Hgb (11.2-15.7) g/dL Hct (34.1-44.9) % MCV (79.4-94.8) fL MCH (25.6-32.2) pg MCHC (32.2-35.5) g/dL RDW (11.7-14.4) % Plt Count (182-369) x10^3/uL MPV (9.4-12.3) fL Gran % (34.0-71.1) % Immature Gran % (Auto) (0.001-0.429) % Nucleat RBC Rel Count (0.00-0.2) % Eos # (Auto) (0.04-0.36) x10^3/uL Immature Gran # (Auto) (0.001-0.031) x10^3u/L Absolute Lymphs (auto) (1.18-3.74) x10^3/uL Absolute Monos (auto) (0.24-0.86) x10^3/uL Absolute Nucleated RBC (0.00-0.012) x10^3u/L Lymphocytes % (19.3-51.7) % Monocytes % (4.7-12.5) % Eosinophils % (0.7-5.8) % Basophils % (0.1-1.2) % Absolute Granulocytes (1.56-6.13) x10^3/uL Basophils # (0.01-0.08) x10^3/uL Sodium (135-145) mmol/L Potassium (3.5-5.1) mmol/L Chloride (98-107) mmol/L Carbon Dioxide (22-30) mmol/L Anion Gap (5-15) MEQ/L BUN (7-17) mg/dL Creatinine (0.52-1.04) mg/dL Estimated GFR ML/MIN Glucose (74-106) mg/dL POC Glucometer 197 H 163 H (74 to 106) mg/dL Calcium (8.4-10.2) mg/dL Total Bilirubin (0.2-1.3) mg/dL AST (14-36) U/L ALT (0-35) U/L Alkaline Phosphatase (38-126) U/L Troponin I 0.039 H* (0.000-0.033) ng/mL Serum Total Protein (6.3-8.2) g/dL Albumin (3.5-5.0) g/dL 10/12/23 10/12/23 10/13/23 Range/Units 18:59 21:52 05:18 WBC 9.1 (3.98-10.04) x10^3/uL RBC 3.86 L (3.93-5.22) x10^6/uL Hgb 11.1 L (11.2-15.7) g/dL Hct 35.1 (34.1-44.9) % MCV 90.9 (79.4-94.8) fL MCH 28.8 (25.6-32.2) pg MCHC 31.6 L (32.2-35.5) g/dL RDW 13.8 (11.7-14.4) % Plt Count 235 (182-369) x10^3/uL MPV 9.4 (9.4-12.3) fL Gran % 74.2 H (34.0-71.1) % Immature Gran % (Auto) 0.4 (0.001-0.429) % Nucleat RBC Rel Count 0.0 (0.00-0.2) % Eos # (Auto) 0.06 (0.04-0.36) x10^3/uL Immature Gran # (Auto) 0.04 H (0.001-0.031) x10^3u/L Absolute Lymphs (auto) 1.39 (1.18-3.74) x10^3/uL Absolute Monos (auto) 0.85 (0.24-0.86) x10^3/uL Absolute Nucleated RBC 0.00 (0.00-0.012) x10^3u/L Lymphocytes % 15.3 L (19.3-51.7) % Monocytes % 9.3 (4.7-12.5) % Eosinophils % 0.7 (0.7-5.8) % Basophils % 0.1 (0.1-1.2) % Absolute Granulocytes 6.75 H (1.56-6.13) x10^3/uL Basophils # 0.01 (0.01-0.08) x10^3/uL Sodium (135-145) mmol/L Potassium (3.5-5.1) mmol/L Chloride (98-107) mmol/L Carbon Dioxide (22-30) mmol/L Anion Gap (5-15) MEQ/L BUN (7-17) mg/dL Creatinine (0.52-1.04) mg/dL Estimated GFR ML/MIN Glucose (74-106) mg/dL POC Glucometer 222 H 138 H (74 to 106) mg/dL Calcium (8.4-10.2) mg/dL Total Bilirubin (0.2-1.3) mg/dL AST (14-36) U/L ALT (0-35) U/L Alkaline Phosphatase (38-126) U/L Troponin I (0.000-0.033) ng/mL Serum Total Protein (6.3-8.2) g/dL Albumin (3.5-5.0) g/dL 10/13/23 10/13/23 Range/Units 05:18 07:02 WBC (3.98-10.04) x10^3/uL RBC (3.93-5.22) x10^6/uL Hgb (11.2-15.7) g/dL Hct (34.1-44.9) % MCV (79.4-94.8) fL MCH (25.6-32.2) pg MCHC (32.2-35.5) g/dL RDW (11.7-14.4) % Plt Count (182-369) x10^3/uL MPV (9.4-12.3) fL Gran % (34.0-71.1) % Immature Gran % (Auto) (0.001-0.429) % Nucleat RBC Rel Count (0.00-0.2) % Eos # (Auto) (0.04-0.36) x10^3/uL Immature Gran # (Auto) (0.001-0.031) x10^3u/L Absolute Lymphs (auto) (1.18-3.74) x10^3/uL Absolute Monos (auto) (0.24-0.86) x10^3/uL Absolute Nucleated RBC (0.00-0.012) x10^3u/L Lymphocytes % (19.3-51.7) % Monocytes % (4.7-12.5) % Eosinophils % (0.7-5.8) % Basophils % (0.1-1.2) % Absolute Granulocytes (1.56-6.13) x10^3/uL Basophils # (0.01-0.08) x10^3/uL Sodium 137 (135-145) mmol/L Potassium 3.5 (3.5-5.1) mmol/L Chloride 105 (98-107) mmol/L Carbon Dioxide 27 (22-30) mmol/L Anion Gap 8.5 (5-15) MEQ/L BUN 18 H (7-17) mg/dL Creatinine 0.64 (0.52-1.04) mg/dL Estimated GFR 88.2 ML/MIN Glucose 145 H (74-106) mg/dL POC Glucometer 134 H (74 to 106) mg/dL Calcium 9.3 (8.4-10.2) mg/dL Total Bilirubin 0.40 (0.2-1.3) mg/dL AST 36 (14-36) U/L ALT 33 (0-35) U/L Alkaline Phosphatase 84 (38-126) U/L Troponin I (0.000-0.033) ng/mL Serum Total Protein 5.8 L (6.3-8.2) g/dL Albumin 3.3 L (3.5-5.0) g/dL Radiology Exams: Radiology Procedures Category Date Time Status CHEST WITH CONTRAST [CT] Stat Exams 10/12/23 04:42 Completed Multi-Disciplinary Progress Notes: Multi-Disciplinary Progress Notes 10/12/23 10:52 Respiratory Note by Alondra Barreto RT Assessment completed at 0957 Initialized on 10/12/23 10:52 - END OF NOTE Assessment/Plan (1) COPD with exacerbation Current Visit: Yes Status: Acute Assessment & Plan: -Supplemental oxygen with goal spo2 >91% -baseline 3L -RT eval -Nebs q4h PRN -Viral resp briscoe- negative -CT with no acute findings -IS -solumedrol 40mg bid -ABG/BIPAP if significant hypoxia/lethargy - Continue Augmentin 10/11: -continue abx/steroid -at baseline oxygen of 3L -Nebs -mucinex Code(s): J44.1 - CHRONIC OBSTRUCTIVE PULMONARY DISEASE W (ACUTE) EXACERBATION (2) Elevated troponin Current Visit: Yes Status: Acute Assessment & Plan: -Most likely demand - EKG is sinus tach with no ST elevations -cardiology following Code(s): R79.89 - OTHER SPECIFIED ABNORMAL FINDINGS OF BLOOD CHEMISTRY (3) Sigmoid diverticulitis Current Visit: No Status: Acute Assessment & Plan: -Prior imaging reviewed - CT with colonic diverticulosis with fat stranding around the distal and proximal sigmoid colon, consistent with acute diverticulitis - no evidence of perforation or abscess -Patient tolerating diet -supportive therapies -anti-emetics/pain control -continue Augmentin Code(s): K57.32 - DVTRCLI OF LG INT W/O PERFORATION OR ABSCESS W/O BLEEDING (4) Type II diabetes mellitus Current Visit: No Status: Acute Qualifiers: 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 mellitus 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 inspector insulin use: without assisted use Diabetes mellitus complication status: without complication Qualified Code(s): E11.9 - Type 2 diabetes mellitus without complications Assessment & Plan: -Carb controlled -SSI -A1c at 7.37 (5) HTN (hypertension) Current Visit: No Status: Chronic Assessment & Plan: blood pressure well-controlled Continue lisinopril 20 BID, Norvasc 5 CODE STATUS: Full code Diet: Carb controlled Prophylaxis: Lovenox Code(s): J44.1 - CHRONIC OBSTRUCTIVE PULMONARY DISEASE W (ACUTE) EXACERBATION (2) Elevated troponin Current Visit: Yes Status: Acute Code(s): R79.89 - OTHER SPECIFIED ABNORMAL FINDINGS OF BLOOD CHEMISTRY (3) Sigmoid diverticulitis Current Visit: No Status: Acute Code(s): K57.32 - DVTRCLI OF LG INT W/O PERFORATION OR ABSCESS W/O BLEEDING (4) Type II diabetes mellitus Current Visit: No Status: Acute Qualifiers: Diabetes mellitus assisted insulin use: without termite inspector use Diabetes mellitus complication status: without complication Qualified Code(s): E11.9 - Type 2 diabetes mellitus without complications (5) HTN (hypertension) Current Visit: No Status: Chronic Code(s): I10 - ESSENTIAL (PRIMARY) HYPERTENSION
[2023-10-13] MEDS ORDERED: PROVENTIL 2.5 MG/3 ML NEB IH SCH (10:00)
[2023-10-13] MEDS ORDERED: NON-FORMULARY ITEM (Fluticasone/Umeclidin/Vilanter [Trelegy Ellipta 100-62.5-25] 1 EACH Bl PO SCH (10:00)
[2023-10-13] MEDS: solu-MEDROL 30 MG, Sterile H2O 10 ml 1 ML IV SCH (10:04)
[2023-10-13] MEDS: Protonix 40MG Tablet PO SCH (10:04)
[2023-10-13] MEDS: Zestril 20 MG PO SCH (10:04)
[2023-10-13] MEDS: Toprol-Xl 25MG Tablets PO SCH (10:04)
[2023-10-13] MEDS: Calcium 500MG W/Vit D Tablet PO SCH (10:04)
[2023-10-13] MEDS: NORVASC 5 MG PO SCH (10:04)
[2023-10-13] MEDS: Ecotrin 325 MG PO SCH (10:04)
[2023-10-13] MEDS: Mucinex 600MG ER Tabs PO SCH (10:04)
[2023-10-13] MEDS: Zocor 10MG PO SCH (10:05)
[2023-10-13] MEDS: Augmentin 875-125 Tablet PO SCH (10:05)
[2023-10-13] MEDS: Singulair 10 MG PO SCH (10:05)
[2023-10-14 05:56] LABS: Absolute Neutrophil Ct (ANC) 7.15 x10^3/uL (1.56-6.13); BASOPHIL % 0.1 % (0.1-1.2); Basophil (Absolute #) 0.01 x10^3/uL (0.01-0.08); Eosinophil (Absolute #) 0 x10^3/uL (0.04-0.36); Hematocrit 36.1 % (34.1-44.9); Hemoglobin 11.6 g/dL (11.2-15.7); IMMATURE GRAN # 0.05 x10^3u/L (0.001-0.031); IMMATURE GRAN % 0.6 % (0.001-0.429); Lymphocyte (Absolute #) 0.44 x10^3/uL (1.18-3.74); Lymphocytes % 5.5 % (19.3-51.7); Mean Cell Volume 90.3 fL (79.4-94.8); Mean Corpuscular Hgb Concent. 32.1 g/dL (32.2-35.5); Mean Platelet Volume 9.9 fL (9.4-12.3); Monocyte (Absolute #) 0.29 x10^3/uL (0.24-0.86); Monocytes % 3.7 % (4.7-12.5); Neutrophil % 90.1 % (34.0-71.1); Platelet Count 276 x10^3/uL (182-369); Red Cell Distribution Width 13.6 % (11.7-14.4); White Blood Count 7.9 x10^3/uL (3.98-10.04)
[2023-10-14 06:11] LABS: ALBUMIN 3.7 g/dL (3.5-5.0); ANION GAP 9.1 MEQ/L (5-15); BILIRUBIN,TOTAL 0.5 mg/dL (0.2-1.3); Calcium 9.2 mg/dL (8.4-10.2); Creatinine 1 0.6 mg/dL (0.52-1.04); EST GLOMERULAR FILTRATION RATE 89.6 ML/MIN; Total Protein 6.2 g/dL (6.3-8.2)
[2023-10-14 06:27] LABS: Slide Review 1 YES
--- NOTE | 2023-10-14 07:41 | PCM.NOTE ---
Date and Time: 10/14/23 0740 Subjective Assessment: HPI: is a 83 year old female with a history of COPD, DM2, and hypertension presented to ED 10/12/23 with complaints of progressive shortness of breath, non-productive cough, and wheezing starting 10/11/23 admitted for COPD exacerbtion. Recent admission 10/09/23 -10/11/23 for acute diverticulitis on Augmentin. Upon arrival patient was tachypneic, tachycardic, and hypoxic. EKG is sinus tach with no ST elevations. 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 No PE. Lab studies remarkable for leukocytosis at 13.8 and elevated trop of 0.055. Admission for COPD exacerbation. Patient was provided DuoNeb, Solu-Medrol, and placed on BIPAP with noted improvement. Additional medication provided: Ceftriaxone/azithromycin. 10/13/23: Met with patient bedside. Endorses continued dyspnea, non-productive cough, and wheezing. Lung sounds are noted diminished with exp wheezing t/o. She is on her baseline oxygen of 3L. Labs and vitals stable. Plan to continue abx/steroids. Add mucinex. Mild abdominal pain, no nausea, and able to tolerate full diet. Did have loose stools last night. No blood/mucus noted. Denies fever,cp, abdominal pain, MALONE, dizziness, N/V/D. 10/14/23: No overnight events noted. Lung sound with improved aeration t/o - exp wheezing in BL lung bases. Endorses improvement of dyspnea - cough non-productive. Remains on baseline 3L oxygen. Plan to continue ABX for treatment of diverticulitis - steroids changed to PO. Most likely can discharge tomorrow. No further episodes of loose stools, abdominal pain improved. Denies fever, cp, abdominal pain, MALONE, dizziness, N/V/D. <GERMAN MARTINEZ - Last Filed: 10/14/23 09:23> Date and Time: 10/14/23 9104 <NAREN MANRIQUE - Last Filed: 10/14/23 18:45> - Review of Systems Constitutional: Weakness Eyes: No Symptoms Ears, Nose, & Throat: No Symptoms Respiratory: Cough, Short Of Breath Cardiac: No Symptoms Abdominal/Gastrointestinal: No Symptoms Genitourinary Symptoms: No Symptoms Musculoskeletal: No Symptoms Skin: No Symptoms Neurological: No Symptoms Psychological: No Symptoms Endocrine: No Symptoms Hematologic/Lymphatic: No Symptoms Immunological/Allergic: No Symptoms <GERMAN MARTINEZ - Last Filed: 10/14/23 09:23> Objective Exam General Appearance: no apparent distress Neurologic Exam: alert, oriented x 3, cooperative Skin Exam: normal color Eye Exam: PERRL Ears, Nose, Throat Exam: normal ENT inspection, moist mucous membranes Neck Exam: normal inspection Respiratory Exam: diminished breath sounds, wheezing (exp in bilateral lung bases) Cardiovascular Exam: regular rate/rhythm, normal heart sounds Gastrointestinal/Abdomen Exam: soft, normal bowel sounds Extremity Exam: normal inspection Back Exam: normal inspection Pelvic Exam: deferred Rectal Exam: deferred <GERMAN MARTINEZ - Last Filed: 10/14/23 09:23> Objective Data Vital Signs: Vital Signs - 24 hr Temp Pulse Resp BP Pulse Ox 10/14/23 07:09 82 18 97 10/14/23 04:00 97.8 F 98 H 26 H 137/81 97 10/14/23 01:13 96 H 16 96 10/13/23 23:35 97.5 F 94 H 24 142/69 98 10/13/23 19:49 98.2 F 104 H 25 H 152/87 96 10/13/23 18:46 105 H 16 97 10/13/23 16:00 97.8 F 102 H 22 151/80 96 10/13/23 14:02 104 H 18 95 10/13/23 11:26 98.6 F 100 H 23 157/74 95 Pain Assessment - Last Documented Pain Intensity 2 Pain Scale Used 0-10 Pain Scale Intake and Output: Intake & Output 10/11/23 10/12/23 10/13/23 10/14/23 11:59 11:59 11:59 11:59 Intake Total 1240 960 Output Total 400 1200 Balance 840 -240 Weight 97.9 kg Lab Results: Lab Results-Last 24 Hours 10/13/23 10/13/23 10/13/23 Range/Units 11:13 16:09 21:34 WBC (3.98-10.04) x10^3/uL RBC (3.93-5.22) x10^6/uL Hgb (11.2-15.7) g/dL Hct (34.1-44.9) % MCV (79.4-94.8) fL MCH (25.6-32.2) pg MCHC (32.2-35.5) g/dL RDW (11.7-14.4) % Plt Count (182-369) x10^3/uL MPV (9.4-12.3) fL Gran % (34.0-71.1) % Immature Gran % (Auto) (0.001-0.429) % Nucleat RBC Rel Count (0.00-0.2) % Eos # (Auto) (0.04-0.36) x10^3/uL Immature Gran # (Auto) (0.001-0.031) x10^3u/L Absolute Lymphs (auto) (1.18-3.74) x10^3/uL Absolute Monos (auto) (0.24-0.86) x10^3/uL Absolute Nucleated RBC (0.00-0.012) x10^3u/L Lymphocytes % (19.3-51.7) % Monocytes % (4.7-12.5) % Eosinophils % (0.7-5.8) % Basophils % (0.1-1.2) % Absolute Granulocytes (1.56-6.13) x10^3/uL Basophils # (0.01-0.08) x10^3/uL Sodium (135-145) mmol/L Potassium (3.5-5.1) mmol/L Chloride (98-107) mmol/L Carbon Dioxide (22-30) mmol/L Anion Gap (5-15) MEQ/L BUN (7-17) mg/dL Creatinine (0.52-1.04) mg/dL Estimated GFR ML/MIN Glucose (74-106) mg/dL POC Glucometer 145 H 256 H 238 H (74 to 106) mg/dL Calcium (8.4-10.2) mg/dL Total Bilirubin (0.2-1.3) mg/dL AST (14-36) U/L ALT (0-35) U/L Alkaline Phosphatase (38-126) U/L Serum Total Protein (6.3-8.2) g/dL Albumin (3.5-5.0) g/dL Slides for Path Review 10/14/23 10/14/23 10/14/23 Range/Units 05:16 05:16 07:30 WBC 7.9 (3.98-10.04) x10^3/uL RBC 4.00 (3.93-5.22) x10^6/uL Hgb 11.6 (11.2-15.7) g/dL Hct 36.1 (34.1-44.9) % MCV 90.3 (79.4-94.8) fL MCH 29.0 (25.6-32.2) pg MCHC 32.1 L (32.2-35.5) g/dL RDW 13.6 (11.7-14.4) % Plt Count 276 (182-369) x10^3/uL MPV 9.9 (9.4-12.3) fL Gran % 90.1 H (34.0-71.1) % Immature Gran % (Auto) 0.6 H (0.001-0.429) % Nucleat RBC Rel Count 0.0 (0.00-0.2) % Eos # (Auto) 0 L (0.04-0.36) x10^3/uL Immature Gran # (Auto) 0.05 H (0.001-0.031) x10^3u/L Absolute Lymphs (auto) 0.44 L (1.18-3.74) x10^3/uL Absolute Monos (auto) 0.29 (0.24-0.86) x10^3/uL Absolute Nucleated RBC 0.00 (0.00-0.012) x10^3u/L Lymphocytes % 5.5 L (19.3-51.7) % Monocytes % 3.7 L (4.7-12.5) % Eosinophils % 0.0 L (0.7-5.8) % Basophils % 0.1 (0.1-1.2) % Absolute Granulocytes 7.15 H (1.56-6.13) x10^3/uL Basophils # 0.01 (0.01-0.08) x10^3/uL Sodium 136 (135-145) mmol/L Potassium 4.0 (3.5-5.1) mmol/L Chloride 101 (98-107) mmol/L Carbon Dioxide 31 H (22-30) mmol/L Anion Gap 9.1 (5-15) MEQ/L BUN 20 H (7-17) mg/dL Creatinine 0.60 (0.52-1.04) mg/dL Estimated GFR 89.6 ML/MIN Glucose 230 H (74-106) mg/dL POC Glucometer 202 H (74 to 106) mg/dL Calcium 9.2 (8.4-10.2) mg/dL Total Bilirubin 0.50 (0.2-1.3) mg/dL AST 36 (14-36) U/L ALT 43 H (0-35) U/L Alkaline Phosphatase 83 (38-126) U/L Serum Total Protein 6.2 L (6.3-8.2) g/dL Albumin 3.7 (3.5-5.0) g/dL Slides for Path Review YES Multi-Disciplinary Progress Notes: Multi-Disciplinary Progress Notes 10/13/23 18:52 Respiratory Note by Jaja Bain Pt states that she has been using her home albuterol MDI anytime she gets up to restroom. This RT advised pt that she does need to call RN/RT if she is SOB and feels that she needs MDI/Neb tx. Pt verbalizes understanding of this. Pt is unsure when she took last MDI, scheduled duoneb given at scheduled time. Bipap on standby at bedside. Pt states she is not SOB at this time. SpO2 is 97% on 3L nasal cannula which is her home O2 level. Initialized on 10/13/23 18:52 - END OF NOTE <GERMAN MARTINEZ - Last Filed: 10/14/23 09:23> Vital Signs: Vital Signs - 24 hr Temp Pulse Resp BP Pulse Ox 10/14/23 16:00 97.7 F 92 H 18 138/83 98 10/14/23 13:21 108 H 22 97 10/14/23 12:00 97.8 F 91 H 18 160/84 95 10/14/23 07:46 97.8 F 106 H 20 180/89 94 L 10/14/23 07:09 82 18 97 10/14/23 04:00 97.8 F 98 H 26 H 137/81 97 10/14/23 01:13 96 H 16 96 10/13/23 23:35 97.5 F 94 H 24 142/69 98 10/13/23 19:49 98.2 F 104 H 25 H 152/87 96 10/13/23 18:46 105 H 16 97 Pain Assessment - Last Documented Pain Intensity 2 Pain Scale Used 0-10 Pain Scale Intake and Output: Intake & Output 10/12/23 10/13/23 10/14/23 10/15/23 11:59 11:59 11:59 11:59 Intake Total 1240 1080 360 Output Total 400 1425 1600 Balance 840 -864 -1240 Weight 97.9 kg Lab Results: Lab Results-Last 24 Hours 10/13/23 10/14/23 10/14/23 Range/Units 21:34 05:16 05:16 WBC 7.9 (3.98-10.04) x10^3/uL RBC 4.00 (3.93-5.22) x10^6/uL Hgb 11.6 (11.2-15.7) g/dL Hct 36.1 (34.1-44.9) % MCV 90.3 (79.4-94.8) fL MCH 29.0 (25.6-32.2) pg MCHC 32.1 L (32.2-35.5) g/dL RDW 13.6 (11.7-14.4) % Plt Count 276 (182-369) x10^3/uL MPV 9.9 (9.4-12.3) fL Gran % 90.1 H (34.0-71.1) % Immature Gran % (Auto) 0.6 H (0.001-0.429) % Nucleat RBC Rel Count 0.0 (0.00-0.2) % Eos # (Auto) 0 L (0.04-0.36) x10^3/uL Immature Gran # (Auto) 0.05 H (0.001-0.031) x10^3u/L Absolute Lymphs (auto) 0.44 L (1.18-3.74) x10^3/uL Absolute Monos (auto) 0.29 (0.24-0.86) x10^3/uL Absolute Nucleated RBC 0.00 (0.00-0.012) x10^3u/L Lymphocytes % 5.5 L (19.3-51.7) % Monocytes % 3.7 L (4.7-12.5) % Eosinophils % 0.0 L (0.7-5.8) % Basophils % 0.1 (0.1-1.2) % Absolute Granulocytes 7.15 H (1.56-6.13) x10^3/uL Basophils # 0.01 (0.01-0.08) x10^3/uL Sodium 136 (135-145) mmol/L Potassium 4.0 (3.5-5.1) mmol/L Chloride 101 (98-107) mmol/L Carbon Dioxide 31 H (22-30) mmol/L Anion Gap 9.1 (5-15) MEQ/L BUN 20 H (7-17) mg/dL Creatinine 0.60 (0.52-1.04) mg/dL Estimated GFR 89.6 ML/MIN Glucose 230 H (74-106) mg/dL POC Glucometer 238 H (74 to 106) mg/dL Calcium 9.2 (8.4-10.2) mg/dL Total Bilirubin 0.50 (0.2-1.3) mg/dL AST 36 (14-36) U/L ALT 43 H (0-35) U/L Alkaline Phosphatase 83 (38-126) U/L Serum Total Protein 6.2 L (6.3-8.2) g/dL Albumin 3.7 (3.5-5.0) g/dL Slides for Path Review YES 10/14/23 10/14/23 10/14/23 Range/Units 07:30 12:12 17:09 WBC (3.98-10.04) x10^3/uL RBC (3.93-5.22) x10^6/uL Hgb (11.2-15.7) g/dL Hct (34.1-44.9) % MCV (79.4-94.8) fL MCH (25.6-32.2) pg MCHC (32.2-35.5) g/dL RDW (11.7-14.4) % Plt Count (182-369) x10^3/uL MPV (9.4-12.3) fL Gran % (34.0-71.1) % Immature Gran % (Auto) (0.001-0.429) % Nucleat RBC Rel Count (0.00-0.2) % Eos # (Auto) (0.04-0.36) x10^3/uL Immature Gran # (Auto) (0.001-0.031) x10^3u/L Absolute Lymphs (auto) (1.18-3.74) x10^3/uL Absolute Monos (auto) (0.24-0.86) x10^3/uL Absolute Nucleated RBC (0.00-0.012) x10^3u/L Lymphocytes % (19.3-51.7) % Monocytes % (4.7-12.5) % Eosinophils % (0.7-5.8) % Basophils % (0.1-1.2) % Absolute Granulocytes (1.56-6.13) x10^3/uL Basophils # (0.01-0.08) x10^3/uL Sodium (135-145) mmol/L Potassium (3.5-5.1) mmol/L Chloride (98-107) mmol/L Carbon Dioxide (22-30) mmol/L Anion Gap (5-15) MEQ/L BUN (7-17) mg/dL Creatinine (0.52-1.04) mg/dL Estimated GFR ML/MIN Glucose (74-106) mg/dL POC Glucometer 202 H 283 H 212 H (74 to 106) mg/dL Calcium (8.4-10.2) mg/dL Total Bilirubin (0.2-1.3) mg/dL AST (14-36) U/L ALT (0-35) U/L Alkaline Phosphatase (38-126) U/L Serum Total Protein (6.3-8.2) g/dL Albumin (3.5-5.0) g/dL Slides for Path Review Multi-Disciplinary Progress Notes: Multi-Disciplinary Progress Notes 10/13/23 18:52 Respiratory Note by Jaja Bain Pt states that she has been using her home albuterol MDI anytime she gets up to restroom. This RT advised pt that she does need to call RN/RT if she is SOB and feels that she needs MDI/Neb tx. Pt verbalizes understanding of this. Pt is unsure when she took last MDI, scheduled duoneb given at scheduled time. Bipap on standby at bedside. Pt states she is not SOB at this time. SpO2 is 97% on 3L nasal cannula which is her home O2 level. Initialized on 10/13/23 18:52 - END OF NOTE <NAREN MANRIQUE - Last Filed: 10/14/23 18:45> Assessment/Plan (1) COPD with exacerbation Current Visit: Yes Status: Acute Assessment & Plan: -Supplemental oxygen with goal spo2 >91% -baseline 3L -RT eval -Nebs q4h PRN -Viral resp briscoe- negative -CT with no acute findings -IS -solumedrol 40mg bid -ABG/BIPAP if significant hypoxia/lethargy - Continue Augmentin 10/11: -continue abx/steroid -at baseline oxygen of 3L -Nebs -mucinex 10/12: -Change steroid to prednisone po -continue Nebs/mucinex Code(s): J44.1 - CHRONIC OBSTRUCTIVE PULMONARY DISEASE W (ACUTE) EXACERBATION (2) Elevated troponin Current Visit: Yes Status: Acute Assessment & Plan: -Most likely demand - EKG is sinus tach with no ST elevations -cardiology following Code(s): R79.89 - OTHER SPECIFIED ABNORMAL FINDINGS OF BLOOD CHEMISTRY (3) Sigmoid diverticulitis Current Visit: No Status: Acute Assessment & Plan: -Prior imaging reviewed - CT with colonic diverticulosis with fat stranding around the distal and proximal sigmoid colon, consistent with acute diverticulitis - no evidence of perforation or abscess -Patient tolerating diet -supportive therapies -anti-emetics/pain control -continue Augmentin 10/13: -Tolerating regular diet - no pain meds/anti-emetic used - abdominal pain improved - no nausea -continue course of Augmentin Code(s): K57.32 - DVTRCLI OF LG INT W/O PERFORATION OR ABSCESS W/O BLEEDING (4) Type II diabetes mellitus Current Visit: No Status: Acute Qualifiers: Diabetes mellitus chcf insulin use: without chcf use Diabetes mellitus complication status: without complication Qualified Code(s): E11.9 - Type 2 diabetes mellitus without complications Assessment & Plan: -Carb controlled -SSI -A1c at 7.37 (5) HTN (hypertension) Current Visit: No Status: Chronic Assessment & Plan: blood pressure well-controlled Continue lisinopril 20 BID, Norvasc 5 CODE STATUS: Full code Diet: Carb controlled Prophylaxis: Lovenox Code(s): J44.1 - CHRONIC OBSTRUCTIVE PULMONARY DISEASE W (ACUTE) EXACERBATION Code(s): J44.1 - CHRONIC OBSTRUCTIVE PULMONARY DISEASE W (ACUTE) EXACERBATION (2) Elevated troponin Current Visit: Yes Status: Acute Code(s): R79.89 - OTHER SPECIFIED ABNORMAL FINDINGS OF BLOOD CHEMISTRY (3) Sigmoid diverticulitis Current Visit: No Status: Acute Code(s): K57.32 - DVTRCLI OF LG INT W/O PERFORATION OR ABSCESS W/O BLEEDING (4) Type II diabetes mellitus Current Visit: No Status: Acute Qualifiers: Diabetes mellitus chcf insulin use: without 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 service 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 use Diabetes mellitus complication status: without complication Qualified Code(s): E11.9 - Type 2 diabetes mellitus without complications (5) HTN (hypertension) Current Visit: No Status: Chronic Code(s): I10 - ESSENTIAL (PRIMARY) HYPERTENSION <GERMAN MARTINEZ - Last Filed: 10/14/23 09:23> RACQUEL Encounter - RACQUEL Encounter Attestation RACQUEL Encounter Attestation: "Ihmaria estherpersonalYG Vázquez andhavediscussed pertinent aspects of their care with German Leija agree with the history, physical exam (any modifications based on my personal exam will be noted below), assessment, and plan as outlined in original note. Please see immediately below for my summary of findings and additional assessment and plan along with any meaningful corrections/explanations to the Subjective/Objective portions of the RACQUEL note will be noted." My portion of the encounter took place via telemedicine. -Patient feels her breathing is better but still not quite at baseline. Continue treatment for COPD exacerbation. Expect discharge in 1-2 days <NAREN MANRIQUE - Last Filed: 10/14/23 18:45>
[2023-10-14] MEDS: DELTASONE 20 MG PO SCH (10:12)
[2023-10-15 04:45] LABS: Absolute Neutrophil Ct (ANC) 7.71 x10^3/uL (1.56-6.13); BASOPHIL % 0.1 % (0.1-1.2); Basophil (Absolute #) 0.01 x10^3/uL (0.01-0.08); Eosinophil (Absolute #) 0 x10^3/uL (0.04-0.36); Hematocrit 39.5 % (34.1-44.9); Hemoglobin 12.7 g/dL (11.2-15.7); IMMATURE GRAN # 0.13 x10^3u/L (0.001-0.031); IMMATURE GRAN % 1.4 % (0.001-0.429); Lymphocyte (Absolute #) 0.61 x10^3/uL (1.18-3.74); Lymphocytes % 6.8 % (19.3-51.7); Mean Corpuscular Hemoglobin 29.3 pg (25.6-32.2); Mean Corpuscular Hgb Concent. 32.2 g/dL (32.2-35.5); Mean Platelet Volume 9.7 fL (9.4-12.3); Monocyte (Absolute #) 0.51 x10^3/uL (0.24-0.86); Monocytes % 5.7 % (4.7-12.5); Platelet Count 305 x10^3/uL (182-369); Red Blood Count 4.34 x10^6/uL (3.93-5.22); Red Cell Distribution Width 13.6 % (11.7-14.4)
[2023-10-15 05:12] LABS: ALBUMIN 3.9 g/dL (3.5-5.0); ANION GAP 9.9 MEQ/L (5-15); BILIRUBIN,TOTAL 0.4 mg/dL (0.2-1.3); Calcium 9.6 mg/dL (8.4-10.2); Creatinine 1 0.68 mg/dL (0.52-1.04); EST GLOMERULAR FILTRATION RATE 86.9 ML/MIN; Potassium 3.5 mmol/L (3.5-5.1); Total Protein 6.6 g/dL (6.3-8.2)
--- NOTE | 2023-10-15 10:32 | PCM.DS ---
Discharge Summary Date of Admission: 10/12/23 08:48 Date of Discharge: 10/15/23 Admitting Physician: NAREN MANRIQUE MD Primary Care Provider: KELLY RAMOS DO Allergies Allergies metformin Adverse Reaction (Verified 10/12/23 02:17) Sick to stomach, headache Hospital Summary - Hospital Course Hospital Course: 10/15/23 is a 83 year old female with a history of COPD, DM2, and hypertension. She presented to ED 10/12/23 with complaints of progressive shortness of breath, non-productive cough, and wheezing starting 10/11/23 admitted for COPD exacerbtion. She admits to not wearing her Oxygen on the way to ER thus her O2 sat was low. Recent admission 10/09/23 -10/11/23 for acute diverticulitis on Augmentin. Upon arrival patient was tachypneic, tachycardic, and hypoxic. EKG is sinus tach with no ST elevations. 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 No PE. Lab studies remarkable for leukocytosis at 13.8 and elevated trop of 0.055. Admission for COPD exacerbation. Patient was provided DuoNeb, Solu-Medrol, and placed on BIPAP with noted improvement. Additional medication provided: Ceftriaxone/azithromycin. Antibiotics and steroids changed to PO dosing yesterday and she was able to tolerate. Discussed D/C home this AM and she feels she needs to stay longer. She explained she has chronic weakness. Offered OP or in home PT and she refused. Offered home health care and she refused. Case man agemnt came and discussed options with her and she wants to go home today now with family to take turns in assisting her. She is refusing anything else. Discussed to wear her home O2 to keep from readmission. Will continue steroids and antibiotics. - Vitals & Intake/Output Vital Signs: Vital Signs Temperature 96.9 F 10/15/23 07:15 Pulse Rate 84 10/15/23 07:15 Respiratory Rate 16 10/15/23 07:15 Blood Pressure 139/72 10/15/23 07:15 O2 Sat by Pulse Oximetry 100 10/15/23 07:15 Intake & Output: Intake & Output 10/12/23 10/13/23 10/14/23 07/15/24 11:59 11:59 11:59 11:59 Intake Total 1160 5890 1780 Output Total 271 3182 2600 Balance 840 -345 -820 Weight 97.9 kg - Lab Result Diagrams: 10/15/23 04:27 10/15/23 04:27 Lab Results-Last 24 Hrs: Lab Results-Last 24 Hours 10/14/23 10/14/23 10/14/23 Range/Units 12:12 17:09 21:36 WBC (3.98-10.04) x10^3/uL RBC (3.93-5.22) x10^6/uL Hgb (11.2-15.7) g/dL Hct (34.1-44.9) % MCV (79.4-94.8) fL MCH (25.6-32.2) pg MCHC (32.2-35.5) g/dL RDW (11.7-14.4) % Plt Count (182-369) x10^3/uL MPV (9.4-12.3) fL Gran % (34.0-71.1) % Immature Gran % (Auto) (0.001-0.429) % Nucleat RBC Rel Count (0.00-0.2) % Eos # (Auto) (0.04-0.36) x10^3/uL Immature Gran # (Auto) (0.001-0.031) x10^3u/L Absolute Lymphs (auto) (1.18-3.74) x10^3/uL Absolute Monos (auto) (0.24-0.86) x10^3/uL Absolute Nucleated RBC (0.00-0.012) x10^3u/L Lymphocytes % (19.3-51.7) % Monocytes % (4.7-12.5) % Eosinophils % (0.7-5.8) % Basophils % (0.1-1.2) % Absolute Granulocytes (1.56-6.13) x10^3/uL Basophils # (0.01-0.08) x10^3/uL Sodium (135-145) mmol/L Potassium (3.5-5.1) mmol/L Chloride (98-107) mmol/L Carbon Dioxide (22-30) mmol/L Anion Gap (5-15) MEQ/L BUN (7-17) mg/dL Creatinine (0.52-1.04) mg/dL Estimated GFR ML/MIN Glucose (74-106) mg/dL POC Glucometer 283 H 212 H 212 H (74 to 106) mg/dL Calcium (8.4-10.2) mg/dL Total Bilirubin (0.2-1.3) mg/dL AST (14-36) U/L ALT (0-35) U/L Alkaline Phosphatase (38-126) U/L Serum Total Protein (6.3-8.2) g/dL Albumin (3.5-5.0) g/dL 10/15/23 10/15/23 10/15/23 Range/Units 04:27 04:27 07:06 WBC 9.0 (3.98-10.04) x10^3/uL RBC 4.34 (3.93-5.22) x10^6/uL Hgb 12.7 (11.2-15.7) g/dL Hct 39.5 (34.1-44.9) % MCV 91.0 (79.4-94.8) fL MCH 29.3 (25.6-32.2) pg MCHC 32.2 (32.2-35.5) g/dL RDW 13.6 (11.7-14.4) % Plt Count 305 (182-369) x10^3/uL MPV 9.7 (9.4-12.3) fL Gran % 86.0 H (34.0-71.1) % Immature Gran % (Auto) 1.4 H (0.001-0.429) % Nucleat RBC Rel Count 0.0 (0.00-0.2) % Eos # (Auto) 0 L (0.04-0.36) x10^3/uL Immature Gran # (Auto) 0.13 H (0.001-0.031) x10^3u/L Absolute Lymphs (auto) 0.61 L (1.18-3.74) x10^3/uL Absolute Monos (auto) 0.51 (0.24-0.86) x10^3/uL Absolute Nucleated RBC 0.00 (0.00-0.012) x10^3u/L Lymphocytes % 6.8 L (19.3-51.7) % Monocytes % 5.7 (4.7-12.5) % Eosinophils % 0.0 L (0.7-5.8) % Basophils % 0.1 (0.1-1.2) % Absolute Granulocytes 7.71 H (1.56-6.13) x10^3/uL Basophils # 0.01 (0.01-0.08) x10^3/uL Sodium 138 (135-145) mmol/L Potassium 3.5 (3.5-5.1) mmol/L Chloride 99 (98-107) mmol/L Carbon Dioxide 33 H (22-30) mmol/L Anion Gap 9.9 (5-15) MEQ/L BUN 21 H (7-17) mg/dL Creatinine 0.68 (0.52-1.04) mg/dL Estimated GFR 86.9 ML/MIN Glucose 264 H (74-106) mg/dL POC Glucometer 245 H (74 to 106) mg/dL Calcium 9.6 (8.4-10.2) mg/dL Total Bilirubin 0.40 (0.2-1.3) mg/dL AST 26 (14-36) U/L ALT 42 H (0-35) U/L Alkaline Phosphatase 83 (38-126) U/L Serum Total Protein 6.6 (6.3-8.2) g/dL Albumin 3.9 (3.5-5.0) g/dL Micro Results-Entire Visit: Microbiology 10/12/23 02:25 Blood Culture - Preliminary Blood 10/12/23 02:30 Blood Culture - Preliminary Blood Accuchecks Date 10/15/23 Date 10/14/23 Date 10/14/23 Time 07:15 Time 17:32 Time 12:38 - Procedures and Test Procedures and Tests throughout Hospitalization: Therapy Orders & Screens 10/12/23 02:15 Respiratory Therapy Assessment DAILY Comment: 10/12/23 09:09 Respiratory Therapy Consult ONCE Comment: Reason For Exam: 10/12/23 09:49 RT Screen per Nursing Assess ONCE Comment: Protocol Order Physician Instructions: Greater than 3 points order RT Admission Screen Reason For Exam: Triggered on Admission Diagnosis: copd Diagnosis: copd Pneumonia: No Home O2: Yes Asthma: No CHF: No Home CPAP/BIPAP: No Home Nebs/MDI: Yes Total Points: 10 10/12/23 09:53 Oxygen Nasal Cannula 4 lpm Comment: Diagnosis: copd 10/12/23 09:55 BiPap/CPAP ROUTINE Comment: Diagnosis: copd 10/12/23 10:44 Incentive Spirometry UD Comment: Diagnosis: copd Respiratory Therapy Consult ONCE Comment: Reason For Exam: Diagnosis: copd Discharge Exam General Appearance: no apparent distress, alert Neurologic Exam: alert, oriented x 3, cooperative, normal mood/affect, nml cerebellar function, sensation nml, No motor deficits Eye Exam: PERRL, EOMI, eyes nml inspection Ears, Nose, Throat Exam: normal ENT inspection, pharynx normal, moist mucous membranes Neck Exam: normal inspection, non-tender, supple, full range of motion Respiratory Exam: normal breath sounds, lungs clear, No respiratory distress Cardiovascular Exam: regular rate/rhythm, normal heart sounds Gastrointestinal/Abdomen Exam: soft, No tenderness, No mass Pelvic Exam: deferred Rectal Exam: deferred Back Exam: normal inspection, normal range of motion, No CVA tenderness, No vertebral tenderness Extremity Exam: normal inspection, normal range of motion Skin Exam: normal color, warm, dry Final Diagnosis/Problem List - Final Discharge Diagnosis/Problem (1) COPD with exacerbation Current Visit: Yes Status: Acute Assessment & Plan: - admits to not wearing oxygen prior to coming into ER on day of admission - Supplemental oxygen with goal spo2 >91% -baseline 3L- today 100% on 3lNC - RT eval and treat - Nebs q4h PRN - Viral resp briscoe- negative - CT with no acute findings - IS - solumedrol 40mg bid - ABG/BIPAP if significant hypoxia/lethargy - Continue Augmentin - mucinex - Change steroid to prednisone PO on 10/12 Code(s): J44.1 - CHRONIC OBSTRUCTIVE PULMONARY DISEASE W (ACUTE) EXACERBATION (2) Elevated troponin Current Visit: Yes Status: Acute Assessment & Plan: -Most likely demand - EKG is sinus tach with no ST elevations -cardiology following - Trop <0.012, 0.055, 0.039 Code(s): R79.89 - OTHER SPECIFIED ABNORMAL FINDINGS OF BLOOD CHEMISTRY (3) Sigmoid diverticulitis Current Visit: No Status: Acute Assessment & Plan: - Prior imaging reviewed - CT with colonic diverticulosis with fat stranding around the distal and proximal sigmoid colon, consistent with acute dive rticulitis - no evidence of perforation or abscess - Patient tolerating diet - supportive therapies -anti-emetics/pain control - continue Augmentin Code(s): K57.32 - DVTRCLI OF LG INT W/O PERFORATION OR ABSCESS W/O BLEEDING (4) Type II diabetes mellitus Current Visit: No Status: Chronic Assessment & Plan: -Carb controlled diet -SSI, accuchecks ac/hs -A1c at 7.37- 10/09/23- uncontrolled (5) HTN (hypertension) Current Visit: No Status: Chronic Assessment & Plan: blood pressure well-controlled Continue lisinopril 20mg BID, Norvasc 5mg Code(s): I10 - ESSENTIAL (PRIMARY) HYPERTENSION (6) BMI 35.0-35.9,adult Current Visit: Yes Status: Chronic Assessment & Plan: - advised ADA diet and exercise control Code(s): Z68.35 - BODY MASS INDEX [BMI] 35.0-35.9, ADULT - Discharge Discharge Date: 10/15/23 Disposition: Home, Self-Care Condition: Stable Prescriptions: New Amox Tr/Potass Clav. 875 mg [Augmentin 875-125 Tablet] 875 mg PO Q12H tablet Prednisone 20 mg [Deltasone 20 mg] 20 mg PO BID 4 Days #8 tablet Continue Albuterol 8 gm Mdi Hfa [Ventolin Hfa MDI] 8 gm IH QIDPRN PRN PRN Reason: Shortness Of Breath Albuterol 2.5 mg/3 ml Neb [Proventil 2.5 mg/3 ml Neb] 2.5 mg IH BID Lovastatin 20 mg PO DAILY Aspirin EC 325 mg [Ecotrin 325 MG] 325 mg PO DAILY Calcium Carbonate/Vitamin D3 [Calcium 600-Vit D3 400 Caplet] 1 each PO BID Omeprazole 40 mg PO DAILY Fluticasone/Umeclidin/Vilanter [Trelegy Ellipta 100-62.5-25] 1 inh PO DAILY Amlodipine Besylate 5 mg [Norvasc 5 mg] 5 mg PO DAILY Empagliflozin [Jardiance] 25 mg PO DAILY Semaglutide [Rybelsus] 3.5 mg PO DAILY Metoprolol Succinate 25 mg Xl* [Toprol-Xl 25MG Tablets] 25 mg PO DAILY Lisinopril 20 mg [Zestril 20 MG] 20 mg PO BID Montelukast Sodium [Singulair] 10 mg PO DAILY Amox Tr/Potass Clav. 875 mg [Augmentin 875-125 Tablet] 875 mg PO BID 10 Days #20 tablet Additional Instructions: Wear your home oxygen even if you come to the ER again bring your oxygen with you, do not go without it. Try to stay indoors as it will be hot today. Continue antibiotics and steroids. Follow up with your family doctor this week. If you change your mind about Physical Therapy discuss with PCP and they can ord er. Follow up with: MARILEE CORDOVA SAWMILL MANAGER [[employer] STAFF] - 10/17/23 10:00 am
[2023-10-15 11:31] VITALS: BP 140/77; PULSE 93; RESP 22; TEMP 97.5; O2SAT 96
== END 2023-10-15 12:03 | disposition home or self-care (01) ==
LOC: ED 02:01 → MED SURG 08:48
PROVIDERS: ADMIT Internal Medicine; ATTEND Internal Medicine
DX: J44.1 Chronic obstructive pulmonary disease with (acute) exacerbation (principal); R79.89 Other specified abnormal findings of blood chemistry; K57.32 Diverticulitis of large intestine without perforation or abscess without bleeding; E11.9 Type 2 diabetes mellitus without complications; I10 Essential (primary) hypertension; R00.0 Tachycardia, unspecified; D72.829 Elevated white blood cell count, unspecified; K44.9 Diaphragmatic hernia without obstruction or gangrene; Z79.899 Other long term (current) drug therapy; Z68.35 Body mass index [BMI] 35.0-35.9, adult; Z99.81 Dependence on supplemental oxygen
CPT/HCPCS: 0241U; 36000; 36415; 36600; 71260; 80053; 82375; 82803; 82947; 83605; 83735; 83880; 84145; 84484; 85025; 87040; 93005; 93041; 94002; 94640; 94762; 96365; 96367; 96374; 96375; 99285; 99291; J0456; J0696; J1650; J1817; J2405; J2919; J7609; Q3014; A9270-GY

== ENCOUNTER 2024-01-22 18:19 | Observation (INO) | payer MEDICARE ==
--- NOTE | 2024-01-22 20:04 | ERPHSYRPT ---
- History of Present Illness Time Seen by Provider: 01/22/24 19:50 Source: patient Exam Limitations: no limitations Patient Subjective Stated Complaint: pt states she has been feeling unwell for the past wek. states she has lower abd pain and rates at 8/10. pt states her b reathing and cough is her normal at this time. Triage Nursing Assessment: pt alert and oriented, answers questions approp. pt stillaguamish. pt back to room per wheelchair and transfers to stretcher with assist of 2. pt short of breath with occasional cough- pt states her normal for last 4 years. skin pale, warm and dry. abd soft. pt reports tenderness in rt upper abd. bowel sounds present x4 Physician History: 83-year-old female presents to our ED via private vehicle for evaluation of generally feeling unwell. Decreased p.o. Patient complains of lower abdominal pain and a cough. Symptoms have been ongoing for the past several days. Patient reports her symptoms have gotten worse. Abdominal pain described as an ache that is located across the suprapubic left and right lower quadrant. No trauma. No fever. No diarrhea no rash no nausea no vomiting no chest pain. Symptoms are mild to moderate in intensity. Pain worse with palpation. Pain improves with rest. Patient voices no other complaints or concerns at this time. Portions of this note were created with voice recognition technology. There may be grammatical, spelling, punctuation or sound alike errors Timing/Duration: day(s) (2 to 3 days) Severity: moderate Modifying Factors: Improves With: nothing Associated Symptoms: denies symptoms Allergies/Adverse Reactions: metformin Adverse Reaction (Verified 10/12/23 02:17) Sick to stomach, headache Home Medications: Albuterol 2.5 mg/3 ml Neb [Proventil 2.5 mg/3 ml Neb] 2.5 mg IH BID 03/08/19 [History] Albuterol 8 gm Mdi Hfa [Ventolin Hfa MDI] 8 gm IH QIDPRN PRN 03/08/19 [History] Lovastatin 20 mg PO DAILY 03/21/19 [History] Aspirin EC 325 mg [Ecotrin 325 MG] 325 mg PO DAILY 03/22/19 [History] Calcium Carbonate/Vitamin D3 [Calcium 600-Vit D3 400 Caplet] 1 each PO BID 08/22/19 [History] Fluticasone/Umeclidin/Vilanter [Trelegy Ellipta 100-62.5-25] 1 inh PO DAILY 04/02/21 [History] Omeprazole 40 mg PO DAILY 04/02/21 [History] Amlodipine Besylate 5 mg [Norvasc 5 mg] 5 mg PO DAILY 07/13/23 [History] Empagliflozin [Jardiance] 25 mg PO DAILY 07/13/23 [History] Semaglutide [Rybelsus] 3.5 mg PO DAILY 07/13/23 [History] Lisinopril 20 mg [Zestril 20 MG] 20 mg PO BID 10/09/23 [History] Metoprolol Succinate 25 mg Xl* [Toprol-Xl 25MG Tablets] 25 mg PO DAILY 10/09/23 [History] Montelukast Sodium [Singulair] 10 mg PO DAILY 10/09/23 [History] Hx Tetanus, Diphtheria Vaccination/Date Given: Yes Hx Influenza Vaccination/Date Given: Yes Hx Pneumococcal Vaccination/Date Given: Yes Travel Risk - International Travel Have you traveled outside of the country in past 3 weeks: No - Emerging Infectious Disease Are you exhibiting symptoms associated with any current EIDs: No Symptoms: Shortness of Breath - Review of Systems Constitutional: No Symptoms, No Fever, No Chills Eyes: No Symptoms Ears, Nose, & Throat: No Symptoms Respiratory: No Symptoms, No Cough, No Dyspnea Cardiac: No Symptoms, No Chest Pain, No Edema, No Syncope Abdominal/Gastrointestinal: No Symptoms, No Abdominal Pain, No Nausea, No Vomiting, No Diarrhea Genitourinary Symptoms: No Symptoms, No Dysuria Musculoskeletal: No Symptoms, No Back Pain, No Neck Pain Skin: No Symptoms, No Rash Neurological: No Symptoms, No Dizziness, No Focal Weakness, No Sensory Changes Psychological: No Symptoms Endocrine: No Symptoms Hematologic/Lymphatic: No Symptoms Immunological/Allergic: No Symptoms All Other Systems: Reviewed and Negative - Past Medical History Pertinent Past Medical History: Yes Neurological History: No Pertinent History ENT History: No Pertinent History Cardiac History: High Cholesterol, Hypertension Respiratory History: COPD Endocrine Medical History: Diabetes Type II, Other Musculoskeletal History: Fractures, Osteoporosis GI Medical History: Diverticulitis, Diverticulosis, GERD, Gallbladder Disease History: No Pertinent History Psycho-Social History: No Pertinent History Female Reproductive Disorders: No Pertinent History Other Medical History: seasonal allergies, Post Covid April 2020, ankle fracture - Past Surgical History Past Surgical History: Yes Neuro Surgical History: No Pertinent History Cardiac: No Pertinent History Respiratory: No Pertinent History Gastrointestinal: Appendectomy, Cholecystectomy, Other Genitourinary: No Pertinent History Musculoskeletal: No Pertinent History Female Surgical History: Other Other Surgical History: diagnostic open abdominal, ankle fx and surgery, partial hysterectomy Significant Family History: no pertinent family hx - Social History Smoking Status: Former smoker How long have you smoked: 65 years Exposure to second hand smoke: No Drug Use: none Patient Lives Alone: No - Social Determinants of Health Will the patient participate in the screening: Yes Do you worry about a steady place to live?: No Do you have any problems with any of the following?: No known problems In the past 12 months,have you had to go without utilities?: No Transportation Issues: No Has anyone in your support network made you feel unsafe?: No Have you or anyone in your house had to go without enough: No - Nursing Vital Signs Nursing Vital Signs: Initial Vital Signs Temperature 99.8 F 01/22/24 19:46 Pulse Rate 76 01/22/24 19:46 Respiratory Rate 22 01/22/24 19:46 Blood Pressure 155/83 01/22/24 19:46 O2 Sat by Pulse Oximetry 95 01/22/24 19:46 Pain Scale Pain Intensity 2 - Physical Exam General Appearance: no apparent distress, alert Eye Exam: PERRL/EOMI, eyes nml inspection Ears, Nose, Throat Exam: normal ENT inspection, TMs normal, pharynx normal, moist mucous membranes Neck Exam: normal inspection, non-tender, supple, full range of motion Respiratory Exam: normal breath sounds, lungs clear, airway intact, No respiratory distress Cardiovascular Exam: regular rate/rhythm, normal heart sounds, normal peripheral pulses Gastrointestinal/Abdomen Exam: soft, normal bowel sounds, No tenderness, No mass Back Exam: normal inspection, normal range of motion, No CVA tenderness, No vertebral tenderness Extremity Exam: normal inspection, normal range of motion, pelvis stable Neurologic Exam: alert, oriented x 3, cooperative, normal mood/affect, sensation nml, No motor deficits Skin Exam: normal color, warm, dry, No rash Lymphatic Exam: No adenopathy SpO2 Interpretation: normal SpO2: 95 O2 Delivery: Room Air - Course Nursing assessment & vital signs reviewed: Yes - CT Exams Chest CT Interpretation: Tele-radiologist Report (Lung granuloma, lung emphysema, thyroid nodule, hiatal hernia no PE) Abdomen/Pelvis CT Interpretation: Tele-radiologist Report (Mild perinephric fat stranding, adrenal nodule, appendix not visualized diverticulosis) Ordered Tests: Active Orders 24 hr Category Date 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 01/22/24 20:09 Active IV Insertion STAT Care 01/22/24 19:59 Active Pulse Oximetry (ED) STAT Care 01/22/24 20:09 Active ABDOMEN AND PELVIS W CONTRAST [CT] Stat Exams 01/22/24 22:45 Completed CHEST WITH CONTRAST [CT] Stat Exams 01/22/24 22:45 Completed CBC W DIFF Stat Lab 01/22/24 20:25 Completed CMP Stat Lab 01/22/24 20:25 Completed D-DIMER QUANTITATIVE Stat Lab 01/22/24 20:25 Completed LIPASE Stat Lab 01/22/24 20:25 Completed TROPONIN Q4H Lab 01/22/24 20:25 Completed TROPONIN Q4H Lab 01/23/24 00:45 Completed TROPONIN Q4H Lab 01/23/24 04:00 Ordered UA W/RFX UR CULTURE Stat Lab 01/23/24 02:28 Completed Transfer Order Routine Transfer 01/23/24 Ordered Medication Summary Generic Name Dose Route Start Last Admin Trade Name Freq PRN Reason Stop Dose Admin Sodium Chloride 1,000 mls @ 50 mls/hr 01/22/24 20:00 01/22/24 20:36 Sodium Chloride 0.9% 1000 Ml IV 02/21/24 19:59 50 mls/hr .Q20H JANNETH Administration Discontinued Medications Generic Name Dose Route Start Last Admin Trade Name Freq PRN Reason Stop Dose Admin Morphine Sulfate 2 mg 01/22/24 19:59 01/22/24 20:40 Morphine Sulfate 2 Mg/Ml Inj IV 01/22/24 20:00 2 mg STAT ONE Administration Morphine Sulfate Confirm 01/22/24 20:29 Morphine Sulfate 2 Mg/Ml Inj Administered 01/22/24 20:30 Dose 2 mg .ROUTE .STK-MED ONE Ondansetron HCl 4 mg 01/22/24 19:59 01/22/24 20:38 Ondansetron Hcl 4 Mg/2 Ml Vial IV 01/22/24 20:00 4 mg STAT ONE Administration Ondansetron HCl Confirm 01/22/24 20:29 Ondansetron Hcl 4 Mg/2 Ml Vial Administered 01/22/24 20:30 Dose 4 mg .ROUTE .STK-MED ONE Lab/Rad Data: Laboratory Result Diagrams 01/22/24 20:25 01/22/24 20:25 Laboratory Results 01/23/24 01/23/24 01/22/24 Range/Units 02:28 00:45 20:26 WBC (3.98-10.04) x10^3/uL RBC (3.93-5.22) x10^6/uL Hgb (11.2-15.7) g/dL Hct (34.1-44.9) % MCV (79.4-94.8) fL MCH (25.6-32.2) pg MCHC (32.2-35.5) g/dL RDW (11.7-14.4) % Plt Count (182-369) x10^3/uL MPV (9.4-12.3) fL Gran % (34.0-71.1) % Immature Gran % (Auto) (0.001-0.429) % Nucleat RBC Rel Count (0.00-0.2) % Eos # (Auto) (0.04-0.36) x10^3/uL Immature Gran # (Auto) (0.001-0.031) x10^3u/L Absolute Lymphs (auto) (1.18-3.74) x10^3/uL Absolute Monos (auto) (0.24-0.86) x10^3/uL Absolute Nucleated RBC (0.00-0.012) x10^3u/L Lymphocytes % (19.3-51.7) % Monocytes % (4.7-12.5) % Eosinophils % (0.7-5.8) % Basophils % (0.1-1.2) % Absolute Granulocytes (1.56-6.13) x10^3/uL Basophils # (0.01-0.08) x10^3/uL D-Dimer (0.0-0.50) mg/L Sodium (135-145) mmol/L Potassium (3.5-5.1) mmol/L Chloride (98-107) mmol/L Carbon Dioxide (22-30) mmol/L Anion Gap (5-15) MEQ/L BUN (7-17) mg/dL Creatinine (0.52-1.04) mg/dL Estimated GFR ML/MIN Glucose (74-106) mg/dL Calcium (8.4-10.2) mg/dL Total Bilirubin (0.2-1.3) mg/dL AST (14-36) U/L ALT (0-35) U/L Alkaline Phosphatase (38-126) U/L Troponin I < 0.012 (0.000-0.033) ng/mL Serum Total Protein (6.3-8.2) g/dL Albumin (3.5-5.0) g/dL Lipase (23-300) U/L Urine Color Yellow (Yellow) Urine Appearance Clear (Clear) Urine pH 5.0 (4.6-8.0) Ur Specific Serena >=1.030 A (1.005-1.030) Urine Protein 30 (Negative) Urine Glucose (UA) Negative (Negative) mg/dL Urine Ketones 40 A (Negative) Urine Blood Negative (Negative) Urine Nitrite Negative (Negative) Urine Bilirubin Negative (Negative) Urine Urobilinogen 1.0 A (0.2) mg/dL Ur Leukocyte Esterase Negative (Negative) U Hyaline Cast (Auto) 11-20 (0-2) /LPF Urine Microscopic RBC 0-2 (0-5) /HPF Urine Microscopic WBC 0-2 (0-5) /HPF Ur Epithelial Cells Few (None Seen) /HPF Urine Bacteria None Seen (None Seen) /HPF Urine Culture Reflexed NO (NO) Influenza Type A Ag NEGATIVE (NEGATIVE) Influenza Type B Ag NEGATIVE (NEGATIVE) RSV (PCR) NEGATIVE (NEGATIVE) SARS-CoV-2 (PCR) POSITIVE A (NEGATIVE) Slides for Path Review 01/22/24 01/22/24 01/22/24 Range/Units 20:25 20:25 20:25 WBC (3.98-10.04) x10^3/uL RBC (3.93-5.22) x10^6/uL Hgb (11.2-15.7) g/dL Hct (34.1-44.9) % MCV (79.4-94.8) fL MCH (25.6-32.2) pg MCHC (32.2-35.5) g/dL RDW (11.7-14.4) % Plt Count (182-369) x10^3/uL MPV (9.4-12.3) fL Gran % (34.0-71.1) % Immature Gran % (Auto) (0.001-0.429) % Nucleat RBC Rel Count (0.00-0.2) % Eos # (Auto) (0.04-0.36) x10^3/uL Immature Gran # (Auto) (0.001-0.031) x10^3u/L Absolute Lymphs (auto) (1.18-3.74) x10^3/uL Absolute Monos (auto) (0.24-0.86) x10^3/uL Absolute Nucleated RBC (0.00-0.012) x10^3u/L Lymphocytes % (19.3-51.7) % Monocytes % (4.7-12.5) % Eosinophils % (0.7-5.8) % Basophils % (0.1-1.2) % Absolute Granulocytes (1.56-6.13) x10^3/uL Basophils # (0.01-0.08) x10^3/uL D-Dimer 0.96 H* (0.0-0.50) mg/L Sodium 137 (135-145) mmol/L Potassium 4.4 (3.5-5.1) mmol/L Chloride 100 (98-107) mmol/L Carbon Dioxide 21 L (22-30) mmol/L Anion Gap 20.2 H (5-15) MEQ/L BUN 31 H (7-17) mg/dL Creatinine 1.27 H (0.52-1.04) mg/dL Estimated GFR 42.2 ML/MIN Glucose 175 H (74-106) mg/dL Calcium 9.2 (8.4-10.2) mg/dL Total Bilirubin 0.50 (0.2-1.3) mg/dL AST 40 H (14-36) U/L ALT 24 (0-35) U/L Alkaline Phosphatase 107 (38-126) U/L Troponin I < 0.012 (0.000-0.033) ng/mL Serum Total Protein 6.8 (6.3-8.2) g/dL Albumin 3.9 (3.5-5.0) g/dL Lipase 50 (23-300) U/L Urine Color (Yellow) Urine Appearance (Clear) Urine pH (4.6-8.0) Ur Specific Serena (1.005-1.030) Urine Protein (Negative) Urine Glucose (UA) (Negative) mg/dL Urine Ketones (Negative) Urine Blood (Negative) Urine Nitrite (Negative) Urine Bilirubin (Negative) Urine Urobilinogen (0.2) mg/dL Ur Leukocyte Esterase (Negative) U Hyaline Cast (Auto) (0-2) /LPF Urine Microscopic RBC (0-5) /HPF Urine Microscopic WBC (0-5) /HPF Ur Epithelial Cells (None Seen) /HPF Urine Bacteria (None Seen) /HPF Urine Culture Reflexed (NO) Influenza Type A Ag (NEGATIVE) Influenza Type B Ag (NEGATIVE) RSV (PCR) (NEGATIVE) SARS-CoV-2 (PCR) (NEGATIVE) Slides for Path Review 01/22/24 Range/Units 20:25 WBC 5.3 (3.98-10.04) x10^3/uL RBC 5.04 (3.93-5.22) x10^6/uL Hgb 13.8 (11.2-15.7) g/dL Hct 44.0 (34.1-44.9) % MCV 87.3 (79.4-94.8) fL MCH 27.4 (25.6-32.2) pg MCHC 31.4 L (32.2-35.5) g/dL RDW 13.2 (11.7-14.4) % Plt Count 146 L (182-369) x10^3/uL MPV 9.7 (9.4-12.3) fL Gran % 81.7 H (34.0-71.1) % Immature Gran % (Auto) 0.6 H (0.001-0.429) % Nucleat RBC Rel Count 0.0 (0.00-0.2) % Eos # (Auto) 0 L (0.04-0.36) x10^3/uL Immature Gran # (Auto) 0.03 (0.001-0.031) x10^3u/L Absolute Lymphs (auto) 0.51 L (1.18-3.74) x10^3/uL Absolute Monos (auto) 0.41 (0.24-0.86) x10^3/uL Absolute Nucleated RBC 0.00 (0.00-0.012) x10^3u/L Lymphocytes % 9.6 L (19.3-51.7) % Monocytes % 7.7 (4.7-12.5) % Eosinophils % 0.0 L (0.7-5.8) % Basophils % 0.4 (0.1-1.2) % Absolute Granulocytes 4.33 (1.56-6.13) x10^3/uL Basophils # 0.02 (0.01-0.08) x10^3/uL D-Dimer (0.0-0.50) mg/L Sodium (135-145) mmol/L Potassium (3.5-5.1) mmol/L Chloride (98-107) mmol/L Carbon Dioxide (22-30) mmol/L Anion Gap (5-15) MEQ/L BUN (7-17) mg/dL Creatinine (0.52-1.04) mg/dL Estimated GFR ML/MIN Glucose (74-106) mg/dL Calcium (8.4-10.2) mg/dL Total Bilirubin (0.2-1.3) mg/dL AST (14-36) U/L ALT (0-35) U/L Alkaline Phosphatase (38-126) U/L Troponin I (0.000-0.033) ng/mL Serum Total Protein (6.3-8.2) g/dL Albumin (3.5-5.0) g/dL Lipase (23-300) U/L Urine Color (Yellow) Urine Appearance (Clear) Urine pH (4.6-8.0) Ur Specific Serena (1.005-1.030) Urine Protein (Negative) Urine Glucose (UA) (Negative) mg/dL Urine Ketones (Negative) Urine Blood (Negative) Urine Nitrite (Negative) Urine Bilirubin (Negative) Urine Urobilinogen (0.2) mg/dL Ur Leukocyte Esterase (Negative) U Hyaline Cast (Auto) (0-2) /LPF Urine Microscopic RBC (0-5) /HPF Urine Microscopic WBC (0-5) /HPF Ur Epithelial Cells (None Seen) /HPF Urine Bacteria (None Seen) /HPF Urine Culture Reflexed (NO) Influenza Type A Ag (NEGATIVE) Influenza Type B Ag (NEGATIVE) RSV (PCR) (NEGATIVE) SARS-CoV-2 (PCR) (NEGATIVE) Slides for Path Review YES - Progress Progress: improved Progress Note: 83-year-old female presents to our ED for evaluation of feeling unwell. Symptoms have been going on for the past several days. Decreased p.o. Patient has a cough and lower abdominal pain as well. No obvious fever. Workup reveals acute renal injury, elevated specific gravity on UA suggestive of dehydration. CT abdomen pelvis reveals perinephric fat stranding. No urinary tract infection. Daughter at bedside reports patient is too weak to go home. D-dimer positive. CTA chest negative. Patient agrees to admission at [facility] for further evaluation and treatment. Plan of care discussed with hospitalist Dr. Bright Dobbins who accepts admission to observation. Patient accepted by Dr. Dobbins at 3:04 AM. Portions of this note were created with voice recognition technology. There may be grammatical, spelling, punctuation or sound alike errors Complexity of problem addressed is moderate acute complicated. No critical care time. Complex of data reviewed and analyzed is extensive. Test ordered chest reviewed results analyzed and correlated clinically with history and physical exam. Management discussed with hospitalist who accepts admission to observation. Risk of complication and or risk of morbidity/mortality of patient management is high. Patient requires hospitalization for further evaluation and treatment. Vital stable. Time spent to admit patient approximately 20 minutes. Plan of care established for shared decision making. No social determinants of health present to impede follow-up. Portions of this note were created with voice recognition technology. There may be grammatical, spelling, punctuation or sound alike errors 01/23/24 03:09 01/23/24 03:10 Counseled pt/family regarding: lab results, diagnosis, need for follow-up, rad results - Departure Departure Disposition: Observation Clinical Impression: COVID-19, Acute renal injury, Dehydration, Generalized weakness, Perinephric fat stranding Condition: Stable Critical Care Time: No Referrals: KELLY RAMOS, [Primary Care Provider] - Follow up/PCP as directed
[2024-01-22 20:29] LABS: Absolute Neutrophil Ct (ANC) 4.33 x10^3/uL (1.56-6.13); BASOPHIL % 0.4 % (0.1-1.2); Basophil (Absolute #) 0.02 x10^3/uL (0.01-0.08); Eosinophil (Absolute #) 0 x10^3/uL (0.04-0.36); Hemoglobin 13.8 g/dL (11.2-15.7); IMMATURE GRAN # 0.03 x10^3u/L (0.001-0.031); IMMATURE GRAN % 0.6 % (0.001-0.429); Lymphocyte (Absolute #) 0.51 x10^3/uL (1.18-3.74); Lymphocytes % 9.6 % (19.3-51.7); Mean Cell Volume 87.3 fL (79.4-94.8); Mean Corpuscular Hemoglobin 27.4 pg (25.6-32.2); Mean Corpuscular Hgb Concent. 31.4 g/dL (32.2-35.5); Mean Platelet Volume 9.7 fL (9.4-12.3); Monocyte (Absolute #) 0.41 x10^3/uL (0.24-0.86); Monocytes % 7.7 % (4.7-12.5); Neutrophil % 81.7 % (34.0-71.1); Platelet Count 146 x10^3/uL (182-369); Red Blood Count 5.04 x10^6/uL (3.93-5.22); Red Cell Distribution Width 13.2 % (11.7-14.4); White Blood Count 5.3 x10^3/uL (3.98-10.04)
[2024-01-22] MEDS ORDERED: Zofran 4 MG/2 ML VIAL ONE (20:29)
[2024-01-22] MEDS ORDERED: MORPHINE SULFATE 2 MG INJ ONE (20:29)
[2024-01-22] MEDS ORDERED: Sodium Chloride 0.9% 1000 ML 1,000 ML ONE (20:29)
[2024-01-22] MEDS: Sodium Chloride 0.9% 1000 ML 1,000 ML IV SCH (20:36)
[2024-01-22] MEDS: Zofran 4 MG/2 ML VIAL IV ONE (20:38)
[2024-01-22] MEDS: MORPHINE SULFATE 2 MG INJ IV ONE (20:40)
[2024-01-22 20:43] LABS: ALBUMIN 3.9 g/dL (3.5-5.0); ANION GAP 20.2 MEQ/L (5-15); BILIRUBIN,TOTAL 0.5 mg/dL (0.2-1.3); Calcium 9.2 mg/dL (8.4-10.2); Creatinine 1 1.27 mg/dL (0.52-1.04); EST GLOMERULAR FILTRATION RATE 42.2 ML/MIN; Potassium 4.4 mmol/L (3.5-5.1); Total Protein 6.8 g/dL (6.3-8.2)
[2024-01-22 21:06] LABS: INFLUENZA A NEGATIVE (NEGATIVE); INFLUENZA B NEGATIVE (NEGATIVE); RESPIRATORY SYNCTIAL VIRUS NEGATIVE (NEGATIVE)
[2024-01-22 21:10] LABS: SARS-CoV-2 Xpert Express POSITIVE (NEGATIVE)
[2024-01-22 22:09] LABS: Slide Review 1 YES
--- NOTE | 2024-01-23 01:35 | XRAY ---
CLINICAL HISTORY: Shortness of breath positive D-dime COMPARISON: 10/12/2023 TECHNIQUE: Contiguous 3.[address] images of the chest were acquired with the administration of intravenous contrast. Coronal and sagittal reconstructions were obtained. 100 cc of isovue was administered intravenously. One of the following dose reduction techniques was utilized for this exam: Automated exposure control, adjustment of the mA and/or kV according to patient size, and use of iterative reconstruction FINDINGS: Lungs: Multiple low-attenuation areas are noted in both lungs suggesting emphysematous changes. Redemonstration of atelectatic bands in both lungs, more marked in mid-lower lobes. Interval new development of subpleural reticulation and mild honeycombing, more pronounced in the right lower lobe. A calcified granuloma in the lateral segment of the right lower lobe appears stable. No patch of consolidation or mass lesion was identified on either side. No pleural effusion or pleural thickening. Mediastinum: No mediastinal mass or abnormal lymphadenopathy. A small hypodense nodule in the left thyroid lobe is again present. ( unchanged) Hilar Structures: Normal size and configuration, no enlargement. Heart and Great Vessels: Normal heart size and configuration. No pericardial effusion. Normal caliber and course of the thoracic aorta and other great vessels. Atherosclerotic ulceration is present in the thoracic aorta. Normal enhancement of the great vessels post-contrast. Main, right, and left pulmonary arteries as well as lobar and segmental branches appear of normal caliber without evidence of any filling defect. No evidence of pulmonary arterial thrombosis was identified. Bones: Reduced bone mineralization noted. Degenerative changes are seen in the thoracic spine. Anterior wedging is noted in T8 and 9 resulting in their reduced height. Chest Wall: No masses or soft tissue abnormalities. Upper Abdomen: Hiatal hernia is present with the proximal part of the stomach herniating into the lower mediastinum. IMPRESSION: 1. No evidence of pulmonary embolism. 2. Emphysematous changes were noted in both lungs. Interval stable. 3. Interval new development of subpleural reticulation and mild honeycombing, more pronounced in the right lower lobe. 4. Calcified granuloma in right lower lobe, interval stable. 5. Hiatal hernia is present with the proximal part of the stomach herniating into the lower mediastinum. Interval stable. Electronically Signed by: Jada Almanzar MD. (01/23/2024 01:30:32 EDT)
--- NOTE | 2024-01-23 01:58 | XRAY ---
CLINICAL HISTORY: Abdominal pain COMPARISON: 10/08/2023 TECHNIQUE: CT of the abdomen and pelvis was performed with contrast, with the following protocol: axial images with, and reconstructed coronal and sagittal images. One of the following dose reduction techniques was utilized for this exam: Automated exposure control, adjustment of the mA and/or kV according to patient size, and use of iterative reconstruction. FINDINGS: Abdomen: Liver: Normal in size, shape, and density. No focal lesions, cysts, or masses were identified. Hepatic vasculature and biliary ducts are unremarkable. Gallbladder and Biliary System: Evidence of cholecystectomy. The common bile duct is normal in caliber without dilation. Pancreas: Pancreatic head, body, and tail are visualized and appear normal in size and density. No pancreatic masses or calcifications were noted. The pancreatic duct is not dilated. Spleen: Normal in size, shape, and density. A tiny calcified granuloma is noted in splenic parenchyma. No splenic lesions or masses were identified. Kidneys and Adrenal Glands: Both kidneys are normal in size, shape, and position. Cortical thickness is within normal limits. No renal calculi or hydronephrosis. A well-defined cortical cyst noted at the upper pole of the right kidney measuring 30 x 29 mm. Renal vascular calcification is noted. Mild perinephric fat stranding seen bilaterally. This may be due to ongoing infection. Small well-defined adrenal nodules are seen bilaterally, On the right side measure 14 mm and on the left side measures 11 mm. Pelvis: Urinary Bladder: The urinary bladder is inadequately filled at the time of the scan. Uterus: Normal in size and contour. Ovaries: Not well visualized but no gross abnormalities were noted. Vagina: Normal in contour and wall thickness. Cervix: No evidence of mass or abnormal thickening. Peritoneal and Retroperitoneal Structures: No free fluid or abnormal fluid collections were identified within the abdomen or pelvis. No lymphadenopathy was noted. Bowel: Multiple diverticula in the sigmoid and descending colon with minimal fat stranding still present. Rest of the visualized bowel loops are grossly normal. Appendix is not separately visualised. Hiatal hernia is present with the proximal part of the stomach herniating in the lower mediastinum. Atherosclerotic ulceration is noted in the abdominal aorta and its branches. Bones and Soft Tissues: Reduced bone mineralization and degenerative changes were seen in the lumbar spine. IMPRESSION: 1. Diverticulosis with resolving diverticulitis, when compared to prior study. 2. Interval development of mild perinephric fat stranding seen bilaterally. This may be due to ongoing infection. 3. Suggestion of adrenal adenomas bilaterally. (Interval stable) 4. Bosniak type I right renal cyst. (Unchanged) 5. Hiatal hernia.(stable) Electronically Signed by: Jada Almanzar MD. (01/23/2024 01:54:07 EDT)
[2024-01-23 02:49] LABS: Appearance Clear (Clear); Bacteria None Seen /HPF (None Seen); Bilirubin Negative (Negative); Blood Negative (Negative); Epithelial Cells Few /HPF (None Seen); Glucose, Urine Negative (Negative); Ketones 40 (Negative); Leukocyte Esterase Negative (Negative); Nitrite Negative (Negative); Protein,Urine Dip 30 (Negative); RBC 0-2 /HPF (0-5); Specific Gravity >=1.030 (1.005-1.030); WBC 0-2 /HPF (0-5)
--- NOTE | 2024-01-23 03:23 | PCM.HP ---
History of Present Illness - Chief Complaint Chief Complaint: COVID 19, cough, weakness History of Present Illness: is a 83 year old female who presents with COVID 19 and associated symptoms of weakness, cough, dehydration and EMILY. No chest pain, hypoxia. - Review of Systems Constitutional: No Fever, No Chills Eyes: No Symptoms Ears, Nose, & Throat: No Symptoms Respiratory: No Cough, No Short Of Breath Cardiac: No Chest Pain, No Edema, No Syncope Abdominal/Gastrointestinal: No Abdominal Pain, No Nausea, No Vomiting, No Diarrhea Genitourinary Symptoms: No Dysuria Musculoskeletal: No Back Pain, No Neck Pain Skin: No Rash Neurological: No Dizziness, No Focal Weakness, No Sensory Changes Psychological: No Symptoms Endocrine: No Symptoms Hematologic/Lymphatic: No Symptoms Immunological/Allergic: No Symptoms Medications & Allergies Home Medications: Home Medication List Albuterol 2.5 mg/3 ml Neb [Proventil 2.5 mg/3 ml Neb] 2.5 mg IH BID 03/08/19 [History Confirmed 10/12/23] Albuterol 8 gm Mdi Hfa [Ventolin Hfa MDI] 8 gm IH QIDPRN PRN 03/08/19 [History Confirmed 10/12/23] Lovastatin 20 mg PO DAILY 03/21/19 [History Confirmed 10/12/23] Aspirin EC 325 mg [Ecotrin 325 MG] 325 mg PO DAILY 03/22/19 [History Confirmed 10/12/23] Calcium Carbonate/Vitamin D3 [Calcium 600-Vit D3 400 Caplet] 1 each PO BID 08/22/19 [History Confirmed 10/12/23] Fluticasone/Umeclidin/Vilanter [Trelegy Ellipta 100-62.5-25] 1 inh PO DAILY 04/02/21 [History Confirmed 10/12/23] Omeprazole 40 mg PO DAILY 04/02/21 [History Confirmed 10/12/23] Amlodipine Besylate 5 mg [Norvasc 5 mg] 5 mg PO DAILY 07/13/23 [History Confirmed 10/12/23] Empagliflozin [Jardiance] 25 mg PO DAILY 07/13/23 [History Confirmed 10/12/23] Semaglutide [Rybelsus] 3.5 mg PO DAILY 07/13/23 [History Confirmed 10/12/23] Lisinopril 20 mg [Zestril 20 MG] 20 mg PO BID 10/09/23 [History Confirmed 10/12/23] Metoprolol Succinate 25 mg Xl* [Toprol-Xl 25MG Tablets] 25 mg PO DAILY 10/09/23 [History Confirmed 10/12/23] Montelukast Sodium [Singulair] 10 mg PO DAILY 10/09/23 [History Confirmed 10/12/23] Amox Tr/Potass Clav. 875 mg [Augmentin 875-125 Tablet] 875 mg PO BID 10 Days #20 tablet 10/11/23 [Rx Confirmed 10/12/23] Amox Tr/Potass Clav. 875 mg [Augmentin 875-125 Tablet] 875 mg PO Q12H tablet 10/15/23 [Rx] Prednisone 20 mg [Deltasone 20 mg] 20 mg PO BID 4 Days #8 tablet 10/15/23 [Rx] Allergies/Adverse Reactions: Allergies Allergy/AdvReac Type Severity Reaction Status Date / Time metformin AdvReac Verified 10/12/23 02:17 - Past Medical History Past Medical History: Yes Neurological History: No Pertinent History ENT History: No Pertinent History Cardiac History: High Cholesterol, Hypertension Respiratory History: COPD Endocrine Medical History: Diabetes Type II, Other Musculoskelatal History: Fractures, Osteoporosis GI Medical History: Diverticulitis, Diverticulosis, GERD, Gallbladder Disease History: No Pertinent History Pyscho-Social History: No Pertinent History Reproductive Disorders: No Pertinent History Comment: seasonal allergies, Post Covid April 2020, ankle fracture - Past Surgical History Past Surgical History: Yes Neuro Surgical History: No Pertinent History Cardiac History: No Pertinent History Respiratory Surgery: No Pertinent History GI Surgical History: Appendectomy, Cholecystectomy, Other Genitourinary Surgical Hx: No Pertinent History Musculskeletal Surgical Hx: No Pertinent History Female Surgical History: Other Other Surgical History: diagnostic open abdominal, ankle fx and surgery, partial hysterectomy Significant Family History: no pertinent family hx - Social History Smoking Status: Former smoker How long have you smoked: 65 years Exposure to second hand smoke: No Alcohol: None Drug Use: none - Social Determinants of Health Will the patient participate in the screening: Yes Do you worry about a steady place to live?: No Do you have any problems with any of the following?: No known problems In the past 12 months,have you had to go without utilities?: No Have you or anyone in your house had to go without enough: No Transportation Issues: No Has anyone in your support network made you feel unsafe?: No Does the patient want assistance with any of the above?: No - Physical Exam Vital Signs: Vital Signs - 24 hr Temp Pulse Resp BP BP Pulse Ox 01/23/24 03:13 95 01/23/24 03:01 93 H 27 H 108/58 95 01/23/24 02:30 91 H 28 H 136/78 95 01/23/24 02:00 94 H 23 137/116 97 01/23/24 01:30 90 17 107/62 01/23/24 01:01 90 19 103/71 94 L 01/23/24 00:09 89 22 128/64 94 L 01/22/24 23:00 97 H 20 111/66 97 01/22/24 22:30 99 H 24 108/68 94 L 01/22/24 22:00 102 H 21 103/64 95 01/22/24 21:30 104 H 19 100/67 94 L 01/22/24 21:09 104 H 22 122/62 96 01/22/24 21:00 104 H 23 122/62 97 01/22/24 20:01 22 96 01/22/24 19:46 99.8 F 76 22 155/83 95 General Appearance: no apparent distress, alert Neurologic Exam: alert, oriented x 3, cooperative, normal mood/affect, nml cerebellar function, nml station & gait, sensation nml, No motor deficits Eye Exam: PERRL/EOMI, eyes nml inspection Ears, Nose, Throat Exam: normal ENT inspection, TMs normal, pharynx normal, moist mucous membranes Neck Exam: normal inspection, non-tender, supple, full range of motion Respiratory Exam: normal breath sounds, lungs clear, No respiratory distress Cardiovascular Exam: regular rate/rhythm, normal heart sounds, normal peripheral pulses Gastrointestinal/Abdomen Exam: soft, normal bowel sounds, No tenderness, No mass Back Exam: normal inspection, normal range of motion, No CVA tenderness, No vertebral tenderness Extremity Exam: normal inspection, normal range of motion, pelvis stable Skin Exam: normal color, warm, dry, No rash Lymphatic Exam: No adenopathy Results - Labs Lab/Micro Results: Lab Results-Last 24 Hours 01/22/24 01/22/24 01/22/24 Range/Units 20:25 20:25 20:25 WBC 5.3 (3.98-10.04) x10^3/uL RBC 5.04 (3.93-5.22) x10^6/uL Hgb 13.8 (11.2-15.7) g/dL Hct 44.0 (34.1-44.9) % MCV 87.3 (79.4-94.8) fL MCH 27.4 (25.6-32.2) pg MCHC 31.4 L (32.2-35.5) g/dL RDW 13.2 (11.7-14.4) % Plt Count 146 L (182-369) x10^3/uL MPV 9.7 (9.4-12.3) fL Gran % 81.7 H (34.0-71.1) % Immature Gran % (Auto) 0.6 H (0.001-0.429) % Nucleat RBC Rel Count 0.0 (0.00-0.2) % Eos # (Auto) 0 L (0.04-0.36) x10^3/uL Immature Gran # (Auto) 0.03 (0.001-0.031) x10^3u/L Absolute Lymphs (auto) 0.51 L (1.18-3.74) x10^3/uL Absolute Monos (auto) 0.41 (0.24-0.86) x10^3/uL Absolute Nucleated RBC 0.00 (0.00-0.012) x10^3u/L Lymphocytes % 9.6 L (19.3-51.7) % Monocytes % 7.7 (4.7-12.5) % Eosinophils % 0.0 L (0.7-5.8) % Basophils % 0.4 (0.1-1.2) % Absolute Granulocytes 4.33 (1.56-6.13) x10^3/uL Basophils # 0.02 (0.01-0.08) x10^3/uL D-Dimer (0.0-0.50) mg/L Sodium 137 (135-145) mmol/L Potassium 4.4 (3.5-5.1) mmol/L Chloride 100 (98-107) mmol/L Carbon Dioxide 21 L (22-30) mmol/L Anion Gap 20.2 H (5-15) MEQ/L BUN 31 H (7-17) mg/dL Creatinine 1.27 H (0.52-1.04) mg/dL Estimated GFR 42.2 ML/MIN Glucose 175 H (74-106) mg/dL Calcium 9.2 (8.4-10.2) mg/dL Total Bilirubin 0.50 (0.2-1.3) mg/dL AST 40 H (14-36) U/L ALT 24 (0-35) U/L Alkaline Phosphatase 107 (38-126) U/L Troponin I < 0.012 (0.000-0.033) ng/mL Serum Total Protein 6.8 (6.3-8.2) g/dL Albumin 3.9 (3.5-5.0) g/dL Lipase 50 (23-300) U/L Urine Color (Yellow) Urine Appearance (Clear) Urine pH (4.6-8.0) Ur Specific Mora (1.005-1.030) Urine Protein (Negative) Urine Glucose (UA) (Negative) mg/dL Urine Ketones (Negative) Urine Blood (Negative) Urine Nitrite (Negative) Urine Bilirubin (Negative) Urine Urobilinogen (0.2) mg/dL Ur Leukocyte Esterase (Negative) U Hyaline Cast (Auto) (0-2) /LPF Urine Microscopic RBC (0-5) /HPF Urine Microscopic WBC (0-5) /HPF Ur Epithelial Cells (None Seen) /HPF Urine Bacteria (None Seen) /HPF Urine Culture Reflexed (NO) Influenza Type A Ag (NEGATIVE) Influenza Type B Ag (NEGATIVE) RSV (PCR) (NEGATIVE) SARS-CoV-2 (PCR) (NEGATIVE) Slides for Path Review YES 01/22/24 01/22/24 01/23/24 Range/Units 20:25 20:26 00:45 WBC (3.98-10.04) x10^3/uL RBC (3.93-5.22) x10^6/uL Hgb (11.2-15.7) g/dL Hct (34.1-44.9) % MCV (79.4-94.8) fL MCH (25.6-32.2) pg MCHC (32.2-35.5) g/dL RDW (11.7-14.4) % Plt Count (182-369) x10^3/uL MPV (9.4-12.3) fL Gran % (34.0-71.1) % Immature Gran % (Auto) (0.001-0.429) % Nucleat RBC Rel Count (0.00-0.2) % Eos # (Auto) (0.04-0.36) x10^3/uL Immature Gran # (Auto) (0.001-0.031) x10^3u/L Absolute Lymphs (auto) (1.18-3.74) x10^3/uL Absolute Monos (auto) (0.24-0.86) x10^3/uL Absolute Nucleated RBC (0.00-0.012) x10^3u/L Lymphocytes % (19.3-51.7) % Monocytes % (4.7-12.5) % Eosinophils % (0.7-5.8) % Basophils % (0.1-1.2) % Absolute Granulocytes (1.56-6.13) x10^3/uL Basophils # (0.01-0.08) x10^3/uL D-Dimer 0.96 H* (0.0-0.50) mg/L Sodium (135-145) mmol/L Potassium (3.5-5.1) mmol/L Chloride (98-107) mmol/L Carbon Dioxide (22-30) mmol/L Anion Gap (5-15) MEQ/L BUN (7-17) mg/dL Creatinine (0.52-1.04) mg/dL Estimated GFR ML/MIN Glucose (74-106) mg/dL Calcium (8.4-10.2) mg/dL Total Bilirubin (0.2-1.3) mg/dL AST (14-36) U/L ALT (0-35) U/L Alkaline Phosphatase (38-126) U/L Troponin I < 0.012 (0.000-0.033) ng/mL Serum Total Protein (6.3-8.2) g/dL Albumin (3.5-5.0) g/dL Lipase (23-300) U/L Urine Color (Yellow) Urine Appearance (Clear) Urine pH (4.6-8.0) Ur Specific Mora (1.005-1.030) Urine Protein (Negative) Urine Glucose (UA) (Negative) mg/dL Urine Ketones (Negative) Urine Blood (Negative) Urine Nitrite (Negative) Urine Bilirubin (Negative) Urine Urobilinogen (0.2) mg/dL Ur Leukocyte Esterase (Negative) U Hyaline Cast (Auto) (0-2) /LPF Urine Microscopic RBC (0-5) /HPF Urine Microscopic WBC (0-5) /HPF Ur Epithelial Cells (None Seen) /HPF Urine Bacteria (None Seen) /HPF Urine Culture Reflexed (NO) Influenza Type A Ag NEGATIVE (NEGATIVE) Influenza Type B Ag NEGATIVE (NEGATIVE) RSV (PCR) NEGATIVE (NEGATIVE) SARS-CoV-2 (PCR) POSITIVE A (NEGATIVE) Slides for Path Review 01/23/24 Range/Units 02:28 WBC (3.98-10.04) x10^3/uL RBC (3.93-5.22) x10^6/uL Hgb (11.2-15.7) g/dL Hct (34.1-44.9) % MCV (79.4-94.8) fL MCH (25.6-32.2) pg MCHC (32.2-35.5) g/dL RDW (11.7-14.4) % Plt Count (182-369) x10^3/uL MPV (9.4-12.3) fL Gran % (34.0-71.1) % Immature Gran % (Auto) (0.001-0.429) % Nucleat RBC Rel Count (0.00-0.2) % Eos # (Auto) (0.04-0.36) x10^3/uL Immature Gran # (Auto) (0.001-0.031) x10^3u/L Absolute Lymphs (auto) (1.18-3.74) x10^3/uL Absolute Monos (auto) (0.24-0.86) x10^3/uL Absolute Nucleated RBC (0.00-0.012) x10^3u/L Lymphocytes % (19.3-51.7) % Monocytes % (4.7-12.5) % Eosinophils % (0.7-5.8) % Basophils % (0.1-1.2) % Absolute Granulocytes (1.56-6.13) x10^3/uL Basophils # (0.01-0.08) x10^3/uL D-Dimer (0.0-0.50) mg/L Sodium (135-145) mmol/L Potassium (3.5-5.1) mmol/L Chloride (98-107) mmol/L Carbon Dioxide (22-30) mmol/L Anion Gap (5-15) MEQ/L BUN (7-17) mg/dL Creatinine (0.52-1.04) mg/dL Estimated GFR ML/MIN Glucose (74-106) mg/dL Calcium (8.4-10.2) mg/dL Total Bilirubin (0.2-1.3) mg/dL AST (14-36) U/L ALT (0-35) U/L Alkaline Phosphatase (38-126) U/L Troponin I (0.000-0.033) ng/mL Serum Total Protein (6.3-8.2) g/dL Albumin (3.5-5.0) g/dL Lipase (23-300) U/L Urine Color Yellow (Yellow) Urine Appearance Clear (Clear) Urine pH 5.0 (4.6-8.0) Ur Specific Mora >=1.030 A (1.005-1.030) Urine Protein 30 (Negative) Urine Glucose (UA) Negative (Negative) mg/dL Urine Ketones 40 A (Negative) Urine Blood Negative (Negative) Urine Nitrite Negative (Negative) Urine Bilirubin Negative (Negative) Urine Urobilinogen 1.0 A (0.2) mg/dL Ur Leukocyte Esterase Negative (Negative) U Hyaline Cast (Auto) 11-20 (0-2) /LPF Urine Microscopic RBC 0-2 (0-5) /HPF Urine Microscopic WBC 0-2 (0-5) /HPF Ur Epithelial Cells Few (None Seen) /HPF Urine Bacteria None Seen (None Seen) /HPF Urine Culture Reflexed NO (NO) Influenza Type A Ag (NEGATIVE) Influenza Type B Ag (NEGATIVE) RSV (PCR) (NEGATIVE) SARS-CoV-2 (PCR) (NEGATIVE) Slides for Path Review - Radiology Impressions Radiology Exams & Impressions: Radiology Procedures Category Date Time Status ABDOMEN AND PELVIS W CONTRAST [CT] Stat Exams 01/22/24 22:45 Completed CHEST WITH CONTRAST [CT] Stat Exams 01/22/24 22:45 Completed Assessment/Plan (1) Acute renal injury Current Visit: Yes Status: Acute Assessment & Plan: 1. Secondary to covid-19, weakness 2. Fluids given in the ED 3. Supportive care Code(s): N17.9 - ACUTE KIDNEY FAILURE, UNSPECIFIED Telemedicine Encounter - Telemedicine Encounter Telemedicine Encounter: "The entirety of this encounter was performed via Telemedicine" This visit was performed using real-time audio and video connection between my location and thepatients locationwith the assistance of a surrogateat the patients location. Written or verbal consent was obtained from the patient/guardian to perform this visit usingsynchrcoresystemstelemedicine technology. Any patient questions regarding the telemedicine interaction were answered.
[2024-01-23 07:56] LABS: Hematocrit 42.2 % (34.1-44.9); Hemoglobin 13.3 g/dL (11.2-15.7); Mean Cell Volume 87.9 fL (79.4-94.8); Mean Corpuscular Hemoglobin 27.7 pg (25.6-32.2); Mean Corpuscular Hgb Concent. 31.5 g/dL (32.2-35.5); Mean Platelet Volume 10.7 fL (9.4-12.3); Platelet Count 153 x10^3/uL (182-369); Red Cell Distribution Width 13.3 % (11.7-14.4); White Blood Count 4.6 x10^3/uL (3.98-10.04)
[2024-01-23 08:04] LABS: ALBUMIN 3.7 g/dL (3.5-5.0); ANION GAP 15.4 MEQ/L (5-15); BILIRUBIN,TOTAL 0.4 mg/dL (0.2-1.3); Calcium 8.7 mg/dL (8.4-10.2); Creatinine 1 1.02 mg/dL (0.52-1.04); EST GLOMERULAR FILTRATION RATE 54.9 ML/MIN; Potassium 4.3 mmol/L (3.5-5.1); Total Protein 6.7 g/dL (6.3-8.2)
[2024-01-23] MEDS ORDERED: TYLENOL 325 MG PO PRN (09:40)
[2024-01-23] MEDS: DUONEB 0.5-3 MG/3 ml Neb IH SCH (10:58)
[2024-01-23] MEDS ORDERED: Ventolin Hfa MDI IH PRN (13:41)
[2024-01-23] MEDS ORDERED: SIMETHICONE 125 MG PO PRN (13:41)
[2024-01-23] MEDS ORDERED: Miralax Powder 17GM PACKET PO PRN (13:41)
[2024-01-23] MEDS ORDERED: IBANDRONATE SODIUM 150 MG PO SCH (13:45)
[2024-01-23] MEDS ORDERED: PROVENTIL 2.5 MG/3 ML NEB IH SCH (14:00)
[2024-01-23] MEDS ORDERED: VENTOLIN COMMON CANISTER IH PRN (14:17)
[2024-01-23] MEDS ORDERED: Mylicon 80MG PO PRN (14:21)
[2024-01-23] MEDS ORDERED: MEDICATION INTERVENTION MC SCH ×3 (14:45)
[2024-01-23] MEDS: FLUTICASONE-SALMETEROL 250-50 IH SCH (18:05)
[2024-01-23] MEDS ORDERED: FLUTICASONE-SALMETEROL 250-50 IH ONE (18:13)
[2024-01-23] MEDS ORDERED: Advair Hfa 115/21 Common canister IH SCH (19:00)
[2024-01-23] MEDS: DELTASONE 20 MG PO SCH (21:26)
[2024-01-23] MEDS: ASTELIN NASAL INTRANASAL SCH (21:26)
[2024-01-23] MEDS: Zestril 20 MG PO SCH (21:26)
[2024-01-23] MEDS ORDERED: ASTELIN NASAL INTRANASAL SCH (22:00)
[2024-01-23] MEDS ORDERED: PULMICORT 0.5 MG/2 ML RESPULES IH SCH (22:00)
[2024-01-24 05:30] LABS: Hematocrit 38.2 % (34.1-44.9); Hemoglobin 12.3 g/dL (11.2-15.7); Mean Cell Volume 85.1 fL (79.4-94.8); Mean Corpuscular Hemoglobin 27.4 pg (25.6-32.2); Mean Corpuscular Hgb Concent. 32.2 g/dL (32.2-35.5); Mean Platelet Volume 10.3 fL (9.4-12.3); Platelet Count 161 x10^3/uL (182-369); Red Blood Count 4.49 x10^6/uL (3.93-5.22); Red Cell Distribution Width 13.3 % (11.7-14.4); White Blood Count 3.4 x10^3/uL (3.98-10.04)
[2024-01-24 05:56] LABS: ALBUMIN 3.5 g/dL (3.5-5.0); ANION GAP 13.7 MEQ/L (5-15); BILIRUBIN,TOTAL 0.4 mg/dL (0.2-1.3); Calcium 8.8 mg/dL (8.4-10.2); Creatinine 1 0.8 mg/dL (0.52-1.04); EST GLOMERULAR FILTRATION RATE 73.5 ML/MIN; Total Protein 6.3 g/dL (6.3-8.2)
[2024-01-24] MEDS ORDERED: Spiriva 18 Mcg/Cap Inhaler IH SCH (07:00)
[2024-01-24] MEDS: NORVASC 5 MG PO SCH (09:14)
[2024-01-24] MEDS: Toprol-Xl 25MG Tablets PO SCH (09:14)
[2024-01-24] MEDS: Zocor 10MG PO SCH (09:14)
[2024-01-24] MEDS: Protonix 40MG Tablet PO SCH (09:14)
[2024-01-24] MEDS: Amaryl 2 MG PO SCH (09:14)
[2024-01-24] MEDS: Vitamin B-12 500 MCG PO SCH (09:15)
[2024-01-24] MEDS: Singulair 10 MG PO SCH (09:15)
[2024-01-24] MEDS ORDERED: NON-FORMULARY ITEM (Omeprazole [Omeprazole] 40 MG Capsule.Dr) PO SCH (10:00)
[2024-01-24] MEDS ORDERED: NON-FORMULARY ITEM (Lovastatin [Lovastatin] 20 MG Tablet) PO SCH (10:00)
[2024-01-24] MEDS ORDERED: NON-FORMULARY ITEM (Fluticasone/Umeclidin/Vilanter [Trelegy Ellipta 200-62.5-25] 1 EACH Bl IH SCH (10:00)
[2024-01-24] MEDS ORDERED: NON-FORMULARY ITEM (Cholecalciferol (Vitamin D3) [Vitamin D3] 50 MCG Capsule) PO SCH (10:00)
--- NOTE | 2024-01-24 11:44 | PCM.DS ---
Discharge Summary Date of Admission: 01/23/24 03:21 Date of Discharge: 01/24/24 Admitting Physician: KALA ESPITIA MD Primary Care Provider: KELLY RAMOS DO Allergies Allergies metformin Adverse Reaction (Verified 10/12/23 02:17) Sick to stomach, headache Hospital Summary - Hospital Course Hospital Course: is a 83 year old female with PMHX of hyperlipidemia, HTN< COPD, type II DM, Diverticulosis, and GERD. She presented to the ER on 01/23/24 with COVID 19 and associated symptoms of weakness, cough, dehydration and EMILY. No c hest pain, hypoxia. She states she had been sick for over 1 week and progressively got worse. She has associated weakness. Since admission labs non- concerning. She is not longer SOB but has continued weakness. PT to eval and and treat for home needs/ supplies. She denies CP, SOB, abd. pain, N/V/D. She states she feels much better today. - Vitals & Intake/Output Vital Signs: Vital Signs Temperature 97.7 F 01/24/24 08:00 Pulse Rate 94 H 01/24/24 10:22 Respiratory Rate 16 01/24/24 10:22 Blood Pressure 114/65 01/24/24 08:00 O2 Sat by Pulse Oximetry 95 01/24/24 10:22 Intake & Output: Intake & Output 01/21/24 01/22/24 01/23/24 01/24/24 11:59 11:59 11:59 11:59 Intake Total 580 1700 Output Total 1600 Balance 580 100 Weight 78.3 kg - Lab Result Diagrams: 01/24/24 05:23 01/24/24 05:23 Lab Results-Last 24 Hrs: Lab Results-Last 24 Hours 01/23/24 01/23/24 01/23/24 Range/Units 05:15 11:33 16:31 WBC (3.98-10.04) x10^3/uL RBC (3.93-5.22) x10^6/uL Hgb (11.2-15.7) g/dL Hct (34.1-44.9) % MCV (79.4-94.8) fL MCH (25.6-32.2) pg MCHC (32.2-35.5) g/dL RDW (11.7-14.4) % Plt Count (182-369) x10^3/uL MPV (9.4-12.3) fL Sodium (135-145) mmol/L Potassium (3.5-5.1) mmol/L Chloride (98-107) mmol/L Carbon Dioxide (22-30) mmol/L Anion Gap (5-15) MEQ/L BUN (7-17) mg/dL Creatinine (0.52-1.04) mg/dL Estimated GFR ML/MIN Glucose (74-106) mg/dL POC Glucometer 180 H 155 H (74 to 106) mg/dL Hemoglobin A1c 7.45 H (4.5-6.0) % Calcium (8.4-10.2) mg/dL Total Bilirubin (0.2-1.3) mg/dL AST (14-36) U/L ALT (0-35) U/L Alkaline Phosphatase (38-126) U/L Serum Total Protein (6.3-8.2) g/dL Albumin (3.5-5.0) g/dL 01/23/24 01/24/24 01/24/24 Range/Units 22:41 05:23 05:23 WBC 3.4 L (3.98-10.04) x10^3/uL RBC 4.49 (3.93-5.22) x10^6/uL Hgb 12.3 (11.2-15.7) g/dL Hct 38.2 (34.1-44.9) % MCV 85.1 (79.4-94.8) fL MCH 27.4 (25.6-32.2) pg MCHC 32.2 (32.2-35.5) g/dL RDW 13.3 (11.7-14.4) % Plt Count 161 L (182-369) x10^3/uL MPV 10.3 (9.4-12.3) fL Sodium 135 (135-145) mmol/L Potassium 4.0 (3.5-5.1) mmol/L Chloride 102 (98-107) mmol/L Carbon Dioxide 23 (22-30) mmol/L Anion Gap 13.7 (5-15) MEQ/L BUN 28 H (7-17) mg/dL Creatinine 0.80 (0.52-1.04) mg/dL Estimated GFR 73.5 ML/MIN Glucose 210 H (74-106) mg/dL POC Glucometer 180 H (74 to 106) mg/dL Hemoglobin A1c (4.5-6.0) % Calcium 8.8 (8.4-10.2) mg/dL Total Bilirubin 0.40 (0.2-1.3) mg/dL AST 37 H (14-36) U/L ALT 18 (0-35) U/L Alkaline Phosphatase 78 (38-126) U/L Serum Total Protein 6.3 (6.3-8.2) g/dL Albumin 3.5 (3.5-5.0) g/dL 01/24/24 01/24/24 Range/Units 07:16 11:25 WBC (3.98-10.04) x10^3/uL RBC (3.93-5.22) x10^6/uL Hgb (11.2-15.7) g/dL Hct (34.1-44.9) % MCV (79.4-94.8) fL MCH (25.6-32.2) pg MCHC (32.2-35.5) g/dL RDW (11.7-14.4) % Plt Count (182-369) x10^3/uL MPV (9.4-12.3) fL Sodium (135-145) mmol/L Potassium (3.5-5.1) mmol/L Chloride (98-107) mmol/L Carbon Dioxide (22-30) mmol/L Anion Gap (5-15) MEQ/L BUN (7-17) mg/dL Creatinine (0.52-1.04) mg/dL Estimated GFR ML/MIN Glucose (74-106) mg/dL POC Glucometer 200 H 301 H (74 to 106) mg/dL Hemoglobin A1c (4.5-6.0) % Calcium (8.4-10.2) mg/dL Total Bilirubin (0.2-1.3) mg/dL AST (14-36) U/L ALT (0-35) U/L Alkaline Phosphatase (38-126) U/L Serum Total Protein (6.3-8.2) g/dL Albumin (3.5-5.0) g/dL Micro Results-Entire Visit: Accuchecks Date 01/24/24 Date 01/23/24 Time 16:37 - Radiology Exams Ordered Rad Exams-Entire Visit: Radiology Procedures Category Date Time Status ABDOMEN AND PELVIS W CONTRAST [CT] Stat Exams 01/22/24 22:45 Completed CHEST WITH CONTRAST [CT] Stat Exams 01/22/24 22:45 Completed - Procedures and Test Procedures and Tests throughout Hospitalization: Therapy Orders & Screens 01/23/24 11:10 Oxygen Nasal Cannula 3 lpm Comment: Diagnosis: COVID-positive, dehydration, acute renal injury 01/24/24 00:14 Respiratory MDI BID Comment: Diagnosis: COVID-positive, dehydration, acute renal injury 01/24/24 07:00 Respiratory Therapy Assessment DAILY Comment: Diagnosis: COVID-positive, dehydration, acute renal injury 01/24/24 07:46 PT Eval & Treat (MD Order) ONCE Reason for Eval:: weakness Diagnosis: COVID-positive, dehydration, acute renal injury Discharge Exam General Appearance: no apparent distress, alert Neurologic Exam: alert, oriented x 3, cooperative, normal mood/affect, nml cerebellar function, sensation nml, motor weakness, No motor deficits Eye Exam: PERRL, EOMI, eyes nml inspection Ears, Nose, Throat Exam: normal ENT inspection, pharynx normal, moist mucous membranes Neck Exam: normal inspection, non-tender, supple, full range of motion Respiratory Exam: normal breath sounds, lungs clear, No respiratory distress Cardiovascular Exam: regular rate/rhythm, normal heart sounds Gastrointestinal/Abdomen Exam: soft, No tenderness, No mass Pelvic Exam: deferred Rectal Exam: deferred Back Exam: normal inspection, normal range of motion, No CVA tenderness, No vertebral tenderness Extremity Exam: normal inspection, normal range of motion Skin Exam: normal color, warm, dry Final Diagnosis/Problem List - Final Discharge Diagnosis/Problem (1) COVID-19 Current Visit: Yes Status: Acute Assessment & Plan: - > 1 week now, out of the window for meds - no sxs other than weakness today - PT eval and treat for home needs Code(s): U07.1 - COVID-19 (2) Generalized weakness Current Visit: Yes Status: Acute Assessment & Plan: - PT eval and treat Code(s): R53.1 - WEAKNESS (3) COPD (chronic obstructive pulmonary disease) Current Visit: No Status: Chronic Assessment & Plan: - Chronic on Baseline 3L NC 96% - Not in acute exacerbation - neftali (4) Obesity (BMI 30.0-34.9) Current Visit: No Status: Chronic Assessment & Plan: - advised diet and excercise control Code(s): E66.9 - OBESITY, UNSPECIFIED - Discharge Discharge Date: 01/24/24 Disposition: Home, Self-Care Condition: Stable Prescriptions: Continue Albuterol 8 gm Mdi Hfa [Ventolin Hfa MDI] 8 gm IH QIDPRN PRN PRN Reason: Shortness Of Breath Albuterol 2.5 mg/3 ml Neb [Proventil 2.5 mg/3 ml Neb] 2.5 mg IH Q6H Lovastatin 20 mg PO DAILY Omeprazole 40 mg PO DAILY Amlodipine Besylate 5 mg [Norvasc 5 mg] 5 mg PO DAILY Metoprolol Succinate 25 mg Xl* [Toprol-Xl 25MG Tablets] 25 mg PO DAILY Lisinopril 20 mg [Zestril 20 MG] 20 mg PO BID Montelukast Sodium [Singulair] 10 mg PO DAILY Prednisone 20 mg [Deltasone 20 mg] 20 mg PO BID 4 Days #8 tablet Simethicone [Gas Relief] 125 mg PO BID PRN PRN Reason: Gas Fluticasone/Umeclidin/Vilanter [Trelegy Ellipta 200-62.5-25] 1 blist IH DAILY Ondansetron [Ondansetron Odt ] 4 mg PO BID PRN PRN PRN Reason: Nausea Polyethylene Glycol 3350 17 gm [Miralax Powder 17GM PACKET] 17 gm PO QDP PRN PRN Reason: Constipation Ibandronate Sodium 150 mg PO UD Glimepiride 2 mg [Amaryl 2 MG] 2 mg PO DAILY Cyanocobalamin 500 Mcg [Vitamin B-12 500 MCG] 1,000 mcg PO DAILY Budesonide 0.5 mg/2 ml [Pulmicort 0.5 mg/2 ml Respules] 2 ml IH BID Azelastine Nasal [Astelin Nasal] 2 spray IN BID Cholecalciferol (Vitamin D3) [Vitamin D3] 100 mcg PO DAILY Discontinued Metronidazole 500 mg [Flagyl 500 MG] 500 mg PO TID Instructions: COVID-19 vaccines, COVID-19 in adults - Discharge instructions, RSV (Respiratory Syncytial Virus) Vaccine CDC Vaccine Information Statement (VIS) Follow up with: KELLY RAMOS DO [Primary Care Provider] - 01/30/24 3:00 pm
[2024-01-24] MEDS: HUMALOG SQ PRN (14:11)
[2024-01-24 14:30] VITALS: RESP 18; O2SAT 95
[2024-01-24] MEDS: Tums EX 750 MG PO PRN (15:56)
[2024-01-24] MEDS: ZOFRAN ODT 4 MG PO PRN (16:00)
[2024-01-24 16:51] VITALS: BP 113/63; PULSE 91; TEMP 97.5
== END 2024-01-24 18:15 | disposition home or self-care (01) ==
LOC: ED 18:19 → MED SURG 01-23 03:21
PROVIDERS: ADMIT Student in an Organized Health Care Education/Training Program; ATTEND Student in an Organized Health Care Education/Training Program
DX: U07.1 COVID-19 (principal); N17.9 Acute kidney failure, unspecified; R53.1 Weakness; J44.9 Chronic obstructive pulmonary disease, unspecified; E66.9 Obesity, unspecified; E86.0 Dehydration; Z79.899 Other long term (current) drug therapy
CPT/HCPCS: 0241U; 36000; 36415; 71260; 74177; 80053; 81001; 82947; 83036; 83690; 84484; 85025; 85027; 85379; 93041; 94640; 94760; 94762; 96374; 96375; 97161; 99285; Q3014; 93268; J1817; J2270; J2405; Q0162; A9270-GY; G0378

== ENCOUNTER 2024-07-02 15:52 | Observation (INO) | payer MEDICARE ==
[2024-07-02] MEDS ORDERED: DUONEB 0.5-3 MG/3 ml Neb IH ONE (16:09)
[2024-07-02] MEDS: DUONEB 0.5-3 MG/3 ml Neb IH ONE (16:15)
[2024-07-02 16:17] LABS: A-aADO2 82; ABG HEMOGLOBIN 13.2; ABG POTASSIUM 4.2 (3.5-5.1); ABG SITE rt rad; ALLEN TEST OK? y; ARTERIAL BLD GAS O2 SATURATION 98.5 % (95-100); ARTERIAL BLOOD GAS BASE EXCESS 0.5 (-2.0-2.0); ARTERIAL BLOOD GAS FIO2 32 %; ARTERIAL BLOOD GAS PCO2 44 mmHg (35-45); ARTERIAL BLOOD GAS PO2 91 mmHg (75-100); ARTERIAL BLOOD GAS pH 7.38 (7.35-7.45); CARBOXYHEMOGLOBIN 1.3 % THgb (0.0-6.9); HGB O2 SAT 96.5 g/dF (94-100); Lactic Acid 1.8 (0.4-2.0); Methhemoglobin 0.7 % (1.4-1.5); paO2 pAO1 0.53
[2024-07-02 16:22] LABS: Absolute Neutrophil Ct (ANC) 4.69 x10^3/uL (1.56-6.13); BASOPHIL % 0.7 % (0.1-1.2); Basophil (Absolute #) 0.05 x10^3/uL (0.01-0.08); Eosinophil (Absolute #) 0.36 x10^3/uL (0.04-0.36); Hemoglobin 13.1 g/dL (11.2-15.7); IMMATURE GRAN # 0.04 x10^3u/L (0.001-0.031); IMMATURE GRAN % 0.6 % (0.001-0.429); Lymphocytes % 17.9 % (19.3-51.7); Mean Cell Volume 89.9 fL (79.4-94.8); Mean Corpuscular Hemoglobin 29.4 pg (25.6-32.2); Mean Corpuscular Hgb Concent. 32.8 g/dL (32.2-35.5); Mean Platelet Volume 10.3 fL (9.4-12.3); Monocyte (Absolute #) 0.81 x10^3/uL (0.24-0.86); Monocytes % 11.2 % (4.7-12.5); Neutrophil % 64.6 % (34.0-71.1); Platelet Count 252 x10^3/uL (182-369); Red Blood Count 4.45 x10^6/uL (3.93-5.22); Red Cell Distribution Width 12.7 % (11.7-14.4); White Blood Count 7.3 x10^3/uL (3.98-10.04)
[2024-07-02] MEDS ORDERED: solu-MEDROL ONE (16:30)
[2024-07-02] MEDS: solu-MEDROL 125 MG, Sterile H2O 10 ml 2 ML IV ONE (16:32)
--- NOTE | 2024-07-02 16:50 | XRAY ---
Indication: Short of breath. Comparison: October 11, 2023 Portable chest again demonstrates mild bibasilar subsegmental atelectasis/scarring and tiny right base calcified granuloma. Heart not enlarged again with moderate size hiatal hernia. Bony thorax intact again with osteopenia and mild degenerative changes. No new/acute findings. Impression: Nonacute chest with chronic features.
[2024-07-02 17:18] LABS: ALBUMIN 4.4 g/dL (3.5-5.0); ANION GAP 17.7 MEQ/L (5-15); BILIRUBIN,TOTAL 0.7 mg/dL (0.2-1.3); Calcium 9.2 mg/dL (8.4-10.2); Creatinine 1 0.91 mg/dL (0.52-1.04); EST GLOMERULAR FILTRATION RATE 62.6 ML/MIN; MAGNESIUM 2.1 mg/dL (1.6-2.3); Potassium 4.1 mmol/L (3.5-5.1); Total Protein 7.3 g/dL (6.3-8.2)
[2024-07-02 17:29] LABS: INFLUENZA A NEGATIVE (NEGATIVE); INFLUENZA B NEGATIVE (NEGATIVE); RESPIRATORY SYNCTIAL VIRUS NEGATIVE (NEGATIVE); SARS-CoV-2 Xpert Express NEGATIVE (NEGATIVE)
[2024-07-02] MEDS ORDERED: ROCEPHIN 2 GM/100 ML NACL 2 GM/100 ML IVPB IV ONE (17:36)
[2024-07-02] MEDS: ROCEPHIN 2 GM/100 ML NACL 2 GM/100 ML IVPB IV ONE (17:40)
--- NOTE | 2024-07-02 18:12 | ERPHSYRPT ---
- History of Present Illness Time Seen by Provider: 07/02/24 15:56 Source: patient, family, other (Pulmonology) Exam Limitations: no limitations Patient Subjective Stated Complaint: PT HERE FOR INCREASE SOB FOR 3-4 DAYS AGO, WAS SENT OVER HERE FROM [facility] OFFICE TODAY FOR LOW SATS, DENIES FVER Triage Nursing Assessment: PT ALERT, WALKED IN, SKIN W/D/P, OCC COUGH, RESP LABORED WITH EXCERTION, EDEMA TO LOWER LEGS THAT PT STATES IS NORMAL FOR HER, PL ACED ON HOME O2 AT 3LNC, CHEST DIMINISHED BS Physician History: 84 years old with history of COPD chronic respiratory failure on 2 L oxygen, hypertension, hyperlipidemia, diabetes mellitus is sent in ER by pulmonology for worsening cough and difficulty breathing. Patient reports increasing cough and difficulty breathing for the last 2 to 3 days, coughing up clear to yellow sputum moderate in amount. Increase his oxygen to 3 L and was desatting to 79% in pulmonology office. Patient oxygen saturation is improved to 91% after placing on 4 L oxygen at pulmonology office and sent in here. Patient reports dull aching pain in the chest off-and-on for quite some time which is not any worse than usual. Denies any fever or chills. No extremity swellings. Allergies/Adverse Reactions: metformin Adverse Reaction (Verified 07/02/24 16:02) Sick to stomach, headache Home Medications: Albuterol 2.5 mg/3 ml Neb [Proventil 2.5 mg/3 ml Neb] 2.5 mg IH Q6H 03/08/19 [History] Albuterol 8 gm Mdi Hfa [Ventolin Hfa MDI] 8 gm IH QIDPRN PRN 03/08/19 [History] Lovastatin 20 mg PO DAILY 03/21/19 [History] Omeprazole 40 mg PO DAILY 04/02/21 [History] Amlodipine Besylate 5 mg [Norvasc 5 mg] 5 mg PO DAILY 07/13/23 [History] Lisinopril 20 mg [Zestril 20 MG] 20 mg PO BID 10/09/23 [History] Metoprolol Succinate 25 mg Xl* [Toprol-Xl 25MG Tablets] 25 mg PO DAILY 10/09/23 [History] Montelukast Sodium [Singulair] 10 mg PO DAILY 10/09/23 [History] Azelastine Nasal [Astelin Nasal] 2 spray IN BID 01/23/24 [History] Budesonide 0.5 mg/2 ml [Pulmicort 0.5 mg/2 ml Respules] 2 ml IH BID [History] Cholecalciferol (Vitamin D3) [Vitamin D3] 100 mcg PO DAILY 01/23/24 [History] Cyanocobalamin 500 Mcg [Vitamin B-12 500 MCG] 1,000 mcg PO DAILY 01/23/24 [History] Fluticasone/Umeclidin/Vilanter [Trelegy Ellipta 200-62.5-25] 1 blist IH DAILY 01/23/24 [History] Glimepiride 2 mg [Amaryl 2 MG] 2 mg PO DAILY 01/23/24 [History] Ibandronate Sodium 150 mg PO UD 01/23/24 [History] Ondansetron [Ondansetron Odt ] 4 mg PO BID PRN PRN 01/23/24 [History] Polyethylene Glycol 3350 17 gm [Miralax Powder 17GM PACKET] 17 gm PO QDP PRN 01/23/24 [History] Simethicone [Gas Relief] 125 mg PO BID PRN 01/23/24 [History] Hx Tetanus, Diphtheria Vaccination/Date Given: No Hx Influenza Vaccination/Date Given: No Hx Pneumococcal Vaccination/Date Given: No Immunizations Up to Date: Yes Travel Risk - International Travel Have you traveled outside of the country in past 3 weeks: No - Emerging Infectious Disease Are you exhibiting symptoms associated with any current EIDs: No Symptoms: Shortness of Breath - Review of Systems Constitutional: Fatigue Eyes: No Symptoms Ears, Nose, & Throat: No Symptoms Respiratory: Cough, Dyspnea, Dyspnea on Exertion (PERALTA), Wheezing Cardiac: Chest Pain Abdominal/Gastrointestinal: No Symptoms Genitourinary Symptoms: No Symptoms Musculoskeletal: Arthralgias Skin: No Symptoms Neurological: No Symptoms Hematologic/Lymphatic: No Symptoms Immunological/Allergic: No Symptoms - Past Medical History Pertinent Past Medical History: Yes Neurological History: No Pertinent History ENT History: No Pertinent History Cardiac History: High Cholesterol, Hypertension Respiratory History: COPD Endocrine Medical History: Diabetes Type II, Other Musculoskeletal History: Fractures, Osteoporosis GI Medical History: Diverticulitis, Diverticulosis, GERD, Gallbladder Disease History: No Pertinent History Psycho-Social History: No Pertinent History Female Reproductive Disorders: No Pertinent History Other Medical History: seasonal allergies, Post Covid April 2020, ankle fracture - Past Surgical History Past Surgical History: Yes Neuro Surgical History: No Pertinent History Cardiac: No Pertinent History Respiratory: No Pertinent History Gastrointestinal: Appendectomy, Cholecystectomy, Other Genitourinary: No Pertinent History Musculoskeletal: No Pertinent History Female Surgical History: Other Other Surgical History: diagnostic open abdominal, ankle fx and surgery, partial hysterectomy Significant Family History: no pertinent family hx - Social History Smoking Status: Former smoker Exposure to second hand smoke: No Drug Use: none - Social Determinants of Health Will the patient participate in the screening: Yes Do you worry about a steady place to live?: No Do you have any problems with any of the following?: No known problems In the past 12 months,have you had to go without utilities?: No Transportation Issues: No Has anyone in your support network made you feel unsafe?: No Have you or anyone in your house had to go w/o enough food: No - Nursing Vital Signs Nursing Vital Signs: Initial Vital Signs Pulse Rate 80 07/02/24 16:02 Respiratory Rate 22 07/02/24 16:02 Blood Pressure 147/73 07/02/24 16:02 O2 Sat by Pulse Oximetry 97 07/02/24 16:02 Pain Scale Pain Intensity 0 - Physical Exam General Appearance: mild distress, alert, anxiety Eye Exam: eyes nml inspection Ears, Nose, Throat Exam: hearing grossly normal Neck Exam: normal inspection, full range of motion Respiratory Exam: diminished breath sounds, accessory muscle use, rhonchi, wheezing Cardiovascular/Chest Exam: normal heart sounds, regular rate/rhythm Abdominal/Gastrointestinal Exam: soft, normal bowel sounds, No tenderness Extremity Exam: non-tender, normal range of motion Neurologic Exam: alert, oriented x 3, cooperative Skin Exam: normal color SpO2 Interpretation: hypoxic, O2 applied SpO2: 97 O2 Delivery: Nasal Cannula (4 L) - Course EKG Interpreted by Me: RATE (80), Sinus Rhythm, NORMAL AXIS, NORMAL INTERVALS, Q-wave, Non-specific ST Changes Ordered Tests: Active Orders 24 hr Category Date Time Status [employer] Inspector STAT Care 07/02/24 16:05 Active EKG-ER Only STAT Care 07/02/24 16:05 Active IV Insertion STAT Care 07/02/24 16:05 Active Oxygen-ED Only Nasal Cannula 4 lpm Care 07/02/24 16:05 Active CHEST 1 VIEW (PORTABLE) Stat Exams 07/02/24 16:05 Completed ARTERIAL BLOOD GASES Stat Lab 07/02/24 16:05 Completed BLOOD CULTURE Stat Lab 07/02/24 16:45 Received CBC W DIFF Stat Lab 07/02/24 16:05 Completed CMP Stat Lab 07/02/24 16:05 Completed Lactic Acid Stat Lab 07/02/24 16:05 Completed MAGNESIUM Stat Lab 07/02/24 16:05 Completed NT PRO BNPII Stat Lab 07/02/24 16:05 Completed TROPONIN Q4H Lab 07/02/24 16:05 Completed TROPONIN Q4H Lab 07/02/24 20:15 Ordered TROPONIN Q4H Lab 07/03/24 00:15 Ordered Respiratory Therapy Assessment DAILY RT 07/02/24 16:15 Completed Medication Summary Generic Name Dose Route Start Last Admin Trade Name Freq PRN Reason Stop Dose Admin Azithromycin 500 mg/ Sodium 250 mls @ 250 mls/hr 07/02/24 17:13 Chloride IV 07/02/24 18:12 STAT STA Discontinued Medications Generic Name Dose Route Start Last Admin Trade Name Freq PRN Reason Stop Dose Admin Albuterol/Ipratropium 3 ml 07/02/24 16:05 07/02/24 16:15 Ipratropium/Albuterol Sulfate 3 Ml Ampul.Neb IH 07/02/24 16:06 3 ml STAT ONE Administration Albuterol/Ipratropium Confirm 07/02/24 16:09 Ipratropium/Albuterol Sulfate 3 Ml Ampul.Neb Administered 07/02/24 16:10 Dose 3 ml IH .STK-MED ONE Methylprednisolone Sodium 0 mg 07/02/24 16:05 07/02/24 16:32 Succinate 125 mg/ Sterile IV 07/02/24 16:06 125 mg Water 2 ml STAT ONE Administration Ceftriaxone Sodium 2 gm in 100 mls @ 200 mls/hr 07/02/24 17:13 07/02/24 17:40 Rocephin 2 Gm/100 Ml Nacl IV 07/02/24 17:42 200 ml/hr STAT ONE 200 mls/hr Administration Ceftriaxone Sodium Confirm 07/02/24 17:36 Rocephin 2 Gm/100 Ml Nacl Administered 07/02/24 17:37 Dose 2 gm in 100 mls @ ud IV .STK-MED ONE Methylprednisolone Sodium Succinate Confirm 07/02/24 16:30 Methylprednis Sod Succ 125 Mg/2 Ml Vial Administered 07/02/24 16:31 Dose 125 mg .ROUTE .STK-MED ONE Lab/Rad Data: Laboratory Result Diagrams 07/02/24 16:05 07/02/24 16:05 Laboratory Results 07/02/24 07/02/24 07/02/24 Range/Units 16:48 16:05 16:05 WBC (3.98-10.04) x10^3/uL RBC (3.93-5.22) x10^6/uL Hgb (11.2-15.7) g/dL Hct (34.1-44.9) % MCV (79.4-94.8) fL MCH (25.6-32.2) pg MCHC (32.2-35.5) g/dL RDW (11.7-14.4) % Plt Count (182-369) x10^3/uL MPV (9.4-12.3) fL Gran % (34.0-71.1) % Immature Gran % (Auto) (0.001-0.429) % Nucleat RBC Rel Count (0.00-0.2) % Eos # (Auto) (0.04-0.36) x10^3/uL Immature Gran # (Auto) (0.001-0.031) x10^3u/L Absolute Lymphs (auto) (1.18-3.74) x10^3/uL Absolute Monos (auto) (0.24-0.86) x10^3/uL Absolute Nucleated RBC (0.00-0.012) x10^3u/L Lymphocytes % (19.3-51.7) % Monocytes % (4.7-12.5) % Eosinophils % (0.7-5.8) % Basophils % (0.1-1.2) % Absolute Granulocytes (1.56-6.13) x10^3/uL Basophils # (0.01-0.08) x10^3/uL Puncture Site pCO2 (35-45) mmHg pO2 (75-100) mmHg Base Excess (-2.0-2.0) O2 Saturation (94-100) g/dF ABG pH (7.35-7.45) ABG HCO3 (22-28) ABG O2 Sat (Measured) (95-100) % Ed Test A-a Gradient a/A Ratio Hemoglobin Carboxyhemoglobin (0.0-6.9) % THgb Methemoglobin (1.4-1.5) % Potassium 4.1 (3.5-5.1) Temperature C POC O2 Flow Rate % Sodium 139 (135-145) mmol/L Chloride 100 (98-107) mmol/L Carbon Dioxide 26 (22-30) mmol/L Anion Gap 17.7 H (5-15) MEQ/L BUN 21 H (7-17) mg/dL Creatinine 0.91 (0.52-1.04) mg/dL Estimated GFR 62.6 ML/MIN Glucose 291 H (74-106) mg/dL Lactic Acid (0.4-2.0) Calcium 9.2 (8.4-10.2) mg/dL Magnesium 2.1 (1.6-2.3) mg/dL Total Bilirubin 0.70 (0.2-1.3) mg/dL AST 27 (14-36) U/L ALT 17 (0-35) U/L Alkaline Phosphatase 93 (38-126) U/L Troponin I < 0.012 (0.000-0.033) ng/mL NT-Pro-B Natriuret Pep 166 (<300) pg/mL Serum Total Protein 7.3 (6.3-8.2) g/dL Albumin 4.4 (3.5-5.0) g/dL Influenza Type A Ag NEGATIVE (NEGATIVE) Influenza Type B Ag NEGATIVE (NEGATIVE) RSV (PCR) NEGATIVE (NEGATIVE) SARS-CoV-2 (PCR) NEGATIVE (NEGATIVE) 07/02/24 07/02/24 Range/Units 16:05 16:05 WBC 7.3 (3.98-10.04) x10^3/uL RBC 4.45 (3.93-5.22) x10^6/uL Hgb 13.1 (11.2-15.7) g/dL Hct 40.0 (34.1-44.9) % MCV 89.9 (79.4-94.8) fL MCH 29.4 (25.6-32.2) pg MCHC 32.8 (32.2-35.5) g/dL RDW 12.7 (11.7-14.4) % Plt Count 252 (182-369) x10^3/uL MPV 10.3 (9.4-12.3) fL Gran % 64.6 (34.0-71.1) % Immature Gran % (Auto) 0.6 H (0.001-0.429) % Nucleat RBC Rel Count 0.0 (0.00-0.2) % Eos # (Auto) 0.36 (0.04-0.36) x10^3/uL Immature Gran # (Auto) 0.04 H (0.001-0.031) x10^3u/L Absolute Lymphs (auto) 1.30 (1.18-3.74) x10^3/uL Absolute Monos (auto) 0.81 (0.24-0.86) x10^3/uL Absolute Nucleated RBC 0.00 (0.00-0.012) x10^3u/L Lymphocytes % 17.9 L (19.3-51.7) % Monocytes % 11.2 (4.7-12.5) % Eosinophils % 5.0 (0.7-5.8) % Basophils % 0.7 (0.1-1.2) % Absolute Granulocytes 4.69 (1.56-6.13) x10^3/uL Basophils # 0.05 (0.01-0.08) x10^3/uL Puncture Site rt rad pCO2 44 (35-45) mmHg pO2 91 (75-100) mmHg Base Excess 0.5 (-2.0-2.0) O2 Saturation 96.5 (94-100) g/dF ABG pH 7.38 (7.35-7.45) ABG HCO3 26.0 (22-28) ABG O2 Sat (Measured) 98.5 (95-100) % Ed Test y A-a Gradient 82 a/A Ratio 0.53 Hemoglobin 13.2 Carboxyhemoglobin 1.3 (0.0-6.9) % THgb Methemoglobin 0.7 L (1.4-1.5) % Potassium 4.2 (3.5-5.1) Temperature 37.0 C POC O2 Flow Rate 32 % Sodium (135-145) mmol/L Chloride (98-107) mmol/L Carbon Dioxide (22-30) mmol/L Anion Gap (5-15) MEQ/L BUN (7-17) mg/dL Creatinine (0.52-1.04) mg/dL Estimated GFR ML/MIN Glucose (74-106) mg/dL Lactic Acid 1.8 (0.4-2.0) Calcium (8.4-10.2) mg/dL Magnesium (1.6-2.3) mg/dL Total Bilirubin (0.2-1.3) mg/dL AST (14-36) U/L ALT (0-35) U/L Alkaline Phosphatase (38-126) U/L Troponin I (0.000-0.033) ng/mL NT-Pro-B Natriuret Pep (<300) pg/mL Serum Total Protein (6.3-8.2) g/dL Albumin (3.5-5.0) g/dL Influenza Type A Ag (NEGATIVE) Influenza Type B Ag (NEGATIVE) RSV (PCR) (NEGATIVE) SARS-CoV-2 (PCR) (NEGATIVE) - Progress Progress: improved, re-examined Air Movement: fair Progress Note: 07/02/24 17:37 84 years old with chronic respiratory failure secondary to COPD on 2 L oxygen is evaluated in the ER for increasing cough and difficulty breathing with diffuse wheezing and decreased air entry especially at the bases bilaterally. Patient is on 4 L oxygen on presentation in the ER with sats in mid 90s, mild tachypnea/distress, given another breathing treatment and Solu-Medrol, patient has pretty good turnaround with improved work of breathing and improvement in lungs exam. EKG is sinus rhythm with no acute ST elevations. Has normal white count, chemistries fairly unremarkable with negative troponins. Chest x-ray is negative for any acute cardiopulmonary findings reviewed by me followed by official read. I believe patient has COPD exacerbation, given a dose of Rocephin and Zithromax as well. Discussed with Dr. Baptiste hospitalist, reviewed history, workup, pulmonology recommendations and patient is accepted for admission. Complexity of problem addressed: High acuity Complexity of data reviewed/analyzed: Moderate Risk of complication/morbidity/mortality with current condition managed: High risk Blood Culture(s) Obtained: Yes Antibiotics given: Yes Discussed with : Darius Lance, Other (Dr. Baptiste hospitalist) Will see patient in: hospital (observation) Counseled pt/family regarding: lab results, diagnosis, rad results Medical Desision Making - Independent Historian Additional History obtained from: PCP - Discussion of managment Care discussed with:: specialist (Dr. Lance pulmonology and Dr. Baptiste hospitalist) Reviewed:: Test results Agreed on:: Treatment plan, place in obs Will see patient: in hospital - Diagnostic Testing Diagnostic test were ordered, analyzed, and reviewed by me: Yes Radiological Interpretation: Interpreted by me, Reviewed by me - Risk of complications The pt has a mod risk of morbidity or mortality based on: Need for prescription drug management The pt has a high risk of morbidity or mortality based on: Decision regarding hospitilization or escalation of hosp level of care - Departure Departure Disposition: Observation Clinical Impression: COPD with exacerbation Condition: Stable Critical Care Time: No Referrals: KELLY RAMOS DO [Primary Care Provider] - Follow up/PCP as directed Instructions: Chronic Obstructive Pulmonary Disease
[2024-07-02] MEDS ORDERED: ZITHROMAX IV IV ONE (18:15)
[2024-07-02] MEDS ORDERED: Sodium Chloride 0.9% 250 ML 250 ML IV ONE (18:15)
[2024-07-02] MEDS: ZITHROMAX IV*** 500 MG in Sodium Chloride 0.9% 250 ML 250 ML IV STA (18:17)
[2024-07-02] MEDS: PROVENTIL 2.5 MG/3 ML NEB IH SCH (19:23)
--- NOTE | 2024-07-02 20:31 | PCM.HP ---
History of Present Illness - Chief Complaint Chief Complaint: COPD exacerbation Date: 07/02/24 History of Present Illness: Ms. 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 She denies sick contacts, fever or chills but does note a slight cough productive of clearish sputum. She was seen in the ER and appeared tachypneic/hypoxic and was given steroids, duonebs and started on empiric antibiotics. She is now seen via telehealth where she is resting in bed, awake/alert. She appears hemodynamically stable and in no apparent distress. - Review of Systems All Other Systems: Reviewed and Negative Medications & Allergies Home Medications: Home Medication List Albuterol 2.5 mg/3 ml Neb [Proventil 2.5 mg/3 ml Neb] 2.5 mg IH Q6H 03/08/19 [History Confirmed 07/02/24] Albuterol 8 gm Mdi Hfa [Ventolin Hfa MDI] 8 gm IH QIDPRN PRN 03/08/19 [History Confirmed 07/02/24] Lovastatin 20 mg PO DAILY 03/21/19 [History Confirmed 07/02/24] Omeprazole 40 mg PO DAILY 04/02/21 [History Confirmed 07/02/24] Amlodipine Besylate 5 mg [Norvasc 5 mg] 5 mg PO DAILY 07/13/23 [History Confirmed 07/02/24] Lisinopril 20 mg [Zestril 20 MG] 20 mg PO BID 10/09/23 [History Confirmed 07/02/24] Metoprolol Succinate 25 mg Xl* [Toprol-Xl 25MG Tablets] 25 mg PO DAILY 10/09/23 [History Confirmed 07/02/24] Montelukast Sodium [Singulair] 10 mg PO DAILY 10/09/23 [History Confirmed 07/02/24] Azelastine Nasal [Astelin Nasal] 2 spray IN BID 01/23/24 [History Confirmed 07/02/24] Budesonide 0.5 mg/2 ml [Pulmicort 0.5 mg/2 ml Respules] 2 ml IH BID 01/23/24 [History Confirmed 07/02/24] Cholecalciferol (Vitamin D3) [Vitamin D3] 100 mcg PO DAILY 01/23/24 [History Confirmed 07/02/24] Cyanocobalamin 500 Mcg [Vitamin B-12 500 MCG] 1,000 mcg PO DAILY 01/23/24 [History Confirmed 07/02/24] Fluticasone/Umeclidin/Vilanter [Trelegy Ellipta 200-62.5-25] 1 blist IH DAILY 01/23/24 [History Confirmed 07/02/24] Glimepiride 2 mg [Amaryl 2 MG] 2 mg PO DAILY 01/23/24 [History Confirmed 07/02/24] Ibandronate Sodium 150 mg PO UD 01/23/24 [History Confirmed 07/02/24] Polyethylene Glycol 3350 17 gm [Miralax Powder 17GM PACKET] 17 gm PO QDP PRN 01/23/24 [History Confirmed 07/02/24] Prednisone 20 mg [Deltasone 20 mg] 20 mg PO DAILY PRN PRN 07/02/24 [History Confirmed 07/02/24] Allergies/Adverse Reactions: Allergies Allergy/AdvReac Type Severity Reaction Status Date / Time metformin AdvReac Verified 07/02/24 16:02 - Past Medical History Past Medical History: Yes Neurological History: No Pertinent History ENT History: No Pertinent History Cardiac History: High Cholesterol, Hypertension Respiratory History: COPD Endocrine Medical History: Diabetes Type II, Other Musculoskelatal History: Fractures, Osteoporosis GI Medical History: Diverticulitis, Diverticulosis, GERD, Gallbladder Disease History: No Pertinent History Pyscho-Social History: No Pertinent History Reproductive Disorders: No Pertinent History Comment: seasonal allergies, Post Covid April 2020, Left ankle fracture - Past Surgical History Past Surgical History: Yes Neuro Surgical History: No Pertinent History Cardiac History: No Pertinent History Respiratory Surgery: No Pertinent History GI Surgical History: Appendectomy, Cholecystectomy, Other Genitourinary Surgical Hx: No Pertinent History Musculskeletal Surgical Hx: No Pertinent History Female Surgical History: Other Other Surgical History: diagnostic open abdominal, ankle fx and surgery, partial hysterectomy Significant Family History: no pertinent family hx - Social History Smoking Status: Former smoker How long have you smoked: 65 years Exposure to second hand smoke: No Alcohol: None Drug Use: none - Social Determinants of Health Will the patient participate in the screening: Yes Do you worry about a steady place to live?: No Do you have any problems with any of the following?: No known problems In the past 12 months,have you had to go without utilities?: No Have you or anyone in your house had to go without enough: No Transportation Issues: No Has anyone in your support network made you feel unsafe?: No Does the patient want assistance with any of the above?: No - Physical Exam Vital Signs: Vital Signs - 24 hr Temp Pulse Resp BP BP Pulse Ox 07/02/24 19:33 97.1 F 79 22 166/80 92 L 07/02/24 19:24 73 22 95 07/02/24 18:19 97 07/02/24 18:00 133/73 07/02/24 17:30 130/80 95 07/02/24 17:00 47 H 127/76 97 07/02/24 16:31 77 139/77 97 07/02/24 16:16 97.2 F 80 22 147/73 97 07/02/24 16:02 80 21 147/73 99 General Appearance: no apparent distress Neurologic Exam: alert Ears, Nose, Throat Exam: moist mucous membranes Neck Exam: supple Respiratory Exam: wheezing, No respiratory distress Cardiovascular Exam: regular rate/rhythm Gastrointestinal/Abdomen Exam: soft Extremity Exam: No swelling Skin Exam: normal color, No rash Results - Labs Lab/Micro Results: Lab Results-Last 24 Hours 07/02/24 07/02/24 07/02/24 Range/Units 16:05 16:05 16:05 WBC 7.3 (3.98-10.04) x10^3/uL RBC 4.45 (3.93-5.22) x10^6/uL Hgb 13.1 (11.2-15.7) g/dL Hct 40.0 (34.1-44.9) % MCV 89.9 (79.4-94.8) fL MCH 29.4 (25.6-32.2) pg MCHC 32.8 (32.2-35.5) g/dL RDW 12.7 (11.7-14.4) % Plt Count 252 (182-369) x10^3/uL MPV 10.3 (9.4-12.3) fL Gran % 64.6 (34.0-71.1) % Immature Gran % (Auto) 0.6 H (0.001-0.429) % Nucleat RBC Rel Count 0.0 (0.00-0.2) % Eos # (Auto) 0.36 (0.04-0.36) x10^3/uL Immature Gran # (Auto) 0.04 H (0.001-0.031) x10^3u/L Absolute Lymphs (auto) 1.30 (1.18-3.74) x10^3/uL Absolute Monos (auto) 0.81 (0.24-0.86) x10^3/uL Absolute Nucleated RBC 0.00 (0.00-0.012) x10^3u/L Lymphocytes % 17.9 L (19.3-51.7) % Monocytes % 11.2 (4.7-12.5) % Eosinophils % 5.0 (0.7-5.8) % Basophils % 0.7 (0.1-1.2) % Absolute Granulocytes 4.69 (1.56-6.13) x10^3/uL Basophils # 0.05 (0.01-0.08) x10^3/uL Puncture Site rt rad pCO2 44 (35-45) mmHg pO2 91 (75-100) mmHg Base Excess 0.5 (-2.0-2.0) O2 Saturation 96.5 (94-100) g/dF ABG pH 7.38 (7.35-7.45) ABG HCO3 26.0 (22-28) ABG O2 Sat (Measured) 98.5 (95-100) % Ed Test y A-a Gradient 82 a/A Ratio 0.53 Hemoglobin 13.2 Carboxyhemoglobin 1.3 (0.0-6.9) % THgb Methemoglobin 0.7 L (1.4-1.5) % Potassium 4.2 4.1 (3.5-5.1) Temperature 37.0 C POC O2 Flow Rate 32 % Sodium 139 (135-145) mmol/L Chloride 100 (98-107) mmol/L Carbon Dioxide 26 (22-30) mmol/L Anion Gap 17.7 H (5-15) MEQ/L BUN 21 H (7-17) mg/dL Creatinine 0.91 (0.52-1.04) mg/dL Estimated GFR 62.6 ML/MIN Glucose 291 H (74-106) mg/dL Lactic Acid 1.8 (0.4-2.0) Calcium 9.2 (8.4-10.2) mg/dL Magnesium 2.1 (1.6-2.3) mg/dL Total Bilirubin 0.70 (0.2-1.3) mg/dL AST 27 (14-36) U/L ALT 17 (0-35) U/L Alkaline Phosphatase 93 (38-126) U/L Troponin I (0.000-0.033) ng/mL NT-Pro-B Natriuret Pep 166 (<300) pg/mL Serum Total Protein 7.3 (6.3-8.2) g/dL Albumin 4.4 (3.5-5.0) g/dL Influenza Type A Ag (NEGATIVE) Influenza Type B Ag (NEGATIVE) RSV (PCR) (NEGATIVE) SARS-CoV-2 (PCR) (NEGATIVE) 07/02/24 07/02/24 Range/Units 16:05 16:48 WBC (3.98-10.04) x10^3/uL RBC (3.93-5.22) x10^6/uL Hgb (11.2-15.7) g/dL Hct (34.1-44.9) % MCV (79.4-94.8) fL MCH (25.6-32.2) pg MCHC (32.2-35.5) g/dL RDW (11.7-14.4) % Plt Count (182-369) x10^3/uL MPV (9.4-12.3) fL Gran % (34.0-71.1) % Immature Gran % (Auto) (0.001-0.429) % Nucleat RBC Rel Count (0.00-0.2) % Eos # (Auto) (0.04-0.36) x10^3/uL Immature Gran # (Auto) (0.001-0.031) x10^3u/L Absolute Lymphs (auto) (1.18-3.74) x10^3/uL Absolute Monos (auto) (0.24-0.86) x10^3/uL Absolute Nucleated RBC (0.00-0.012) x10^3u/L Lymphocytes % (19.3-51.7) % Monocytes % (4.7-12.5) % Eosinophils % (0.7-5.8) % Basophils % (0.1-1.2) % Absolute Granulocytes (1.56-6.13) x10^3/uL Basophils # (0.01-0.08) x10^3/uL Puncture Site pCO2 (35-45) mmHg pO2 (75-100) mmHg Base Excess (-2.0-2.0) O2 Saturation (94-100) g/dF ABG pH (7.35-7.45) ABG HCO3 (22-28) ABG O2 Sat (Measured) (95-100) % Ed Test A-a Gradient a/A Ratio Hemoglobin Carboxyhemoglobin (0.0-6.9) % THgb Methemoglobin (1.4-1.5) % Potassium (3.5-5.1) Temperature C POC O2 Flow Rate % Sodium (135-145) mmol/L Chloride (98-107) mmol/L Carbon Dioxide (22-30) mmol/L Anion Gap (5-15) MEQ/L BUN (7-17) mg/dL Creatinine (0.52-1.04) mg/dL Estimated GFR ML/MIN Glucose (74-106) mg/dL Lactic Acid (0.4-2.0) Calcium (8.4-10.2) mg/dL Magnesium (1.6-2.3) mg/dL Total Bilirubin (0.2-1.3) mg/dL AST (14-36) U/L ALT (0-35) U/L Alkaline Phosphatase (38-126) U/L Troponin I < 0.012 (0.000-0.033) ng/mL NT-Pro-B Natriuret Pep (<300) pg/mL Serum Total Protein (6.3-8.2) g/dL Albumin (3.5-5.0) g/dL Influenza Type A Ag NEGATIVE (NEGATIVE) Influenza Type B Ag NEGATIVE (NEGATIVE) RSV (PCR) NEGATIVE (NEGATIVE) SARS-CoV-2 (PCR) NEGATIVE (NEGATIVE) - Radiology Impressions Radiology Exams & Impressions: Radiology Procedures Category Date Time Status CHEST 1 VIEW (PORTABLE) Stat Exams 07/02/24 16:05 Completed - Other Procedures and Tests Respiratory Therapy 07/02/24 18:33 Oxygen Nasal Cannula 4 lpm 07/02/24 19:24 Respiratory Therapy Assessment DAILY Assessment/Plan (1) COPD with exacerbation Current Visit: Yes Status: Acute Assessment & Plan: COPD exacerbation with hypoxia 1. Admit to hospital 2. Solumedrol, duonebs 3. Empiric antibiotics with Rocephin/Zithromax 4. Supplemental oxygen 5. DVT/GI prophylaxis 6. Monitor O2 sats Code(s): J44.1 - CHRONIC OBSTRUCTIVE PULMONARY DISEASE W (ACUTE) EXACERBATION (2) Hypertension Current Visit: No Status: Chronic Qualifiers: Hypertension type: primary hypertension Qualified Code(s): I10 - Essential (primary) hypertension Assessment & Plan: Under good control on current bp meds 1. Continue bp meds 2. Low Na diet 3. Monitor blood pressure readings Code(s): I10 - ESSENTIAL (PRIMARY) HYPERTENSION (3) Type 2 diabetes mellitus Current Visit: No Status: Chronic Assessment & Plan: Blood sugars on the high side from steroids 1. ADA diet 2. Continue diabetic meds 3. FSBS qAC/HS with SSI (4) Acute renal injury Current Visit: No Status: Acute Assessment & Plan: Mild prerenal azotemia but may also be related to steroids 1. Encourage PO intake 2. Defer IVFs/diuretics 3. Follow I/Os 4. Watch electrolytes, creatinine closely Code(s): N17.9 - ACUTE KIDNEY FAILURE, UNSPECIFIED Telemedicine Encounter - Telemedicine Encounter Telemedicine Encounter: "The entirety of this encounter was performed via Telemedicine" This visit was performed using real-time audio and video connection between my location and thepatients locationwith the assistance of a surrogateat the patients location. Written or verbal consent was obtained from the patient/guardian to perform this visit using[facility] [employer] technology. Any patient questions regarding the telemedicine interaction were answered.
[2024-07-02] MEDS ORDERED: TYLENOL 325 MG PO PRN (20:38)
[2024-07-02] MEDS ORDERED: Zofran 4 MG/2 ML VIAL IV PRN (20:38)
[2024-07-02] MEDS ORDERED: HUMALOG ONE (21:36)
[2024-07-02] MEDS: Zestril 20 MG PO SCH (21:43)
[2024-07-02] MEDS: HUMALOG SQ PRN (21:43)
[2024-07-03] MEDS: DUONEB 0.5-3 MG/3 ml Neb IH SCH (00:53)
[2024-07-03 02:09] LABS: Hematocrit 39.5 % (34.1-44.9); Hemoglobin 12.6 g/dL (11.2-15.7); Mean Cell Volume 89.2 fL (79.4-94.8); Mean Corpuscular Hemoglobin 28.4 pg (25.6-32.2); Mean Corpuscular Hgb Concent. 31.9 g/dL (32.2-35.5); Mean Platelet Volume 9.7 fL (9.4-12.3); Platelet Count 222 x10^3/uL (182-369); Red Blood Count 4.43 x10^6/uL (3.93-5.22); Red Cell Distribution Width 12.4 % (11.7-14.4); White Blood Count 4.2 x10^3/uL (3.98-10.04)
[2024-07-03 02:35] LABS: ALBUMIN 4.1 g/dL (3.5-5.0); ANION GAP 14.4 MEQ/L (5-15); BILIRUBIN,TOTAL 0.6 mg/dL (0.2-1.3); Calcium 9.2 mg/dL (8.4-10.2); Creatinine 1 0.55 mg/dL (0.52-1.04); EST GLOMERULAR FILTRATION RATE 90.9 ML/MIN; Potassium 4.1 mmol/L (3.5-5.1); Total Protein 6.6 g/dL (6.3-8.2)
--- NOTE | 2024-07-03 05:12 | PCM.NOTE ---
Date and Time: 07/03/24 1996 Subjective Assessment: Ms. Garcia is an 84 year old female with a pmhx of hypertension, type 2 diabetes, and COPD who presented to ED 07/02/24 with worsening shortness of breath for 23 days. She denied fever, chills, or sick contacts but reported a mild productive cough. In the ER, she was tachypneic and hypoxic, prompting treatment with steroids, nebulizers, and empiric antibiotics. CXR shows a nonacute chest with chronic features. She is admitted for COPD exacerbation with hypoxia and will continue receiving Solumedrol, Duonebs, Rocephin, Zithromax, supplemental oxygen. 07/03/24: Met with patient bedside. Endorses improvement in dyspnea. Cough productive with clear sputum. Oxygen at 3L - 2L baseline. Patient states she is improved but does not feel ready for discharge and risk for readmission as she is weak and having increased dyspnea with any exertion. Denies fever, cp, abdominal pain, MALONE, dizziness, N/V/D. - Review of Systems Constitutional: Weakness Eyes: No Symptoms Ears, Nose, & Throat: No Symptoms Respiratory: Cough, Short Of Breath, Wheezing Cardiac: No Symptoms Abdominal/Gastrointestinal: No Symptoms Genitourinary Symptoms: No Symptoms Musculoskeletal: No Symptoms Skin: No Symptoms Neurological: No Symptoms Psychological: No Symptoms Endocrine: No Symptoms Hematologic/Lymphatic: No Symptoms Immunological/Allergic: No Symptoms Objective Exam General Appearance: no apparent distress Neurologic Exam: alert, oriented x 3, cooperative Skin Exam: normal color Eye Exam: PERRL Ears, Nose, Throat Exam: normal ENT inspection Neck Exam: normal inspection Respiratory Exam: lungs clear, wheezing (exp LLL) Cardiovascular Exam: regular rate/rhythm, normal heart sounds Gastrointestinal/Abdomen Exam: soft, normal bowel sounds Extremity Exam: normal inspection Back Exam: normal inspection Rectal Exam: deferred Objective Data Vital Signs: Vital Signs - 24 hr Temp Pulse Resp BP BP Pulse Ox 07/03/24 04:00 97.0 F 83 20 115/58 94 L 07/03/24 00:54 95 H 24 90 L 07/02/24 23:36 96.9 F 75 18 148/72 93 L 07/02/24 20:00 97.1 F 79 22 166/80 92 L 07/02/24 19:33 97.1 F 79 22 166/80 92 L 07/02/24 19:24 73 22 95 07/02/24 18:19 97 07/02/24 18:00 133/73 07/02/24 17:30 130/80 95 07/02/24 17:00 47 H 127/76 97 07/02/24 16:31 77 139/77 97 07/02/24 16:16 97.2 F 80 22 147/73 97 07/02/24 16:02 80 21 147/73 99 Pain Assessment - Last Documented Pain Intensity 0 Intake and Output: Intake & Output 06/30/24 07/01/24 07/02/24 07/03/24 11:59 11:59 11:59 11:59 Intake Total 920 Balance 920 Weight 83 kg Lab Results: Lab Results-Last 24 Hours 07/02/24 07/02/24 07/02/24 Range/Units 16:05 16:05 16:05 WBC 7.3 (3.98-10.04) x10^3/uL RBC 4.45 (3.93-5.22) x10^6/uL Hgb 13.1 (11.2-15.7) g/dL Hct 40.0 (34.1-44.9) % MCV 89.9 (79.4-94.8) fL MCH 29.4 (25.6-32.2) pg MCHC 32.8 (32.2-35.5) g/dL RDW 12.7 (11.7-14.4) % Plt Count 252 (182-369) x10^3/uL MPV 10.3 (9.4-12.3) fL Gran % 64.6 (34.0-71.1) % Immature Gran % (Auto) 0.6 H (0.001-0.429) % Nucleat RBC Rel Count 0.0 (0.00-0.2) % Eos # (Auto) 0.36 (0.04-0.36) x10^3/uL Immature Gran # (Auto) 0.04 H (0.001-0.031) x10^3u/L Absolute Lymphs (auto) 1.30 (1.18-3.74) x10^3/uL Absolute Monos (auto) 0.81 (0.24-0.86) x10^3/uL Absolute Nucleated RBC 0.00 (0.00-0.012) x10^3u/L Lymphocytes % 17.9 L (19.3-51.7) % Monocytes % 11.2 (4.7-12.5) % Eosinophils % 5.0 (0.7-5.8) % Basophils % 0.7 (0.1-1.2) % Absolute Granulocytes 4.69 (1.56-6.13) x10^3/uL Basophils # 0.05 (0.01-0.08) x10^3/uL Puncture Site rt rad pCO2 44 (35-45) mmHg pO2 91 (75-100) mmHg Base Excess 0.5 (-2.0-2.0) O2 Saturation 96.5 (94-100) g/dF ABG pH 7.38 (7.35-7.45) ABG HCO3 26.0 (22-28) ABG O2 Sat (Measured) 98.5 (95-100) % Ed Test y A-a Gradient 82 a/A Ratio 0.53 Hemoglobin 13.2 Carboxyhemoglobin 1.3 (0.0-6.9) % THgb Methemoglobin 0.7 L (1.4-1.5) % Potassium 4.2 4.1 (3.5-5.1) Temperature 37.0 C POC O2 Flow Rate 32 % Sodium 139 (135-145) mmol/L Chloride 100 (98-107) mmol/L Carbon Dioxide 26 (22-30) mmol/L Anion Gap 17.7 H (5-15) MEQ/L BUN 21 H (7-17) mg/dL Creatinine 0.91 (0.52-1.04) mg/dL Estimated GFR 62.6 ML/MIN Glucose 291 H (74-106) mg/dL POC Glucometer (74 to 106) mg/dL Lactic Acid 1.8 (0.4-2.0) Calcium 9.2 (8.4-10.2) mg/dL Magnesium 2.1 (1.6-2.3) mg/dL Total Bilirubin 0.70 (0.2-1.3) mg/dL AST 27 (14-36) U/L ALT 17 (0-35) U/L Alkaline Phosphatase 93 (38-126) U/L Troponin I (0.000-0.033) ng/mL NT-Pro-B Natriuret Pep 166 (<300) pg/mL Serum Total Protein 7.3 (6.3-8.2) g/dL Albumin 4.4 (3.5-5.0) g/dL Influenza Type A Ag (NEGATIVE) Influenza Type B Ag (NEGATIVE) RSV (PCR) (NEGATIVE) SARS-CoV-2 (PCR) (NEGATIVE) 07/02/24 07/02/24 07/02/24 Range/Units 16:05 16:48 20:39 WBC (3.98-10.04) x10^3/uL RBC (3.93-5.22) x10^6/uL Hgb (11.2-15.7) g/dL Hct (34.1-44.9) % MCV (79.4-94.8) fL MCH (25.6-32.2) pg MCHC (32.2-35.5) g/dL RDW (11.7-14.4) % Plt Count (182-369) x10^3/uL MPV (9.4-12.3) fL Gran % (34.0-71.1) % Immature Gran % (Auto) (0.001-0.429) % Nucleat RBC Rel Count (0.00-0.2) % Eos # (Auto) (0.04-0.36) x10^3/uL Immature Gran # (Auto) (0.001-0.031) x10^3u/L Absolute Lymphs (auto) (1.18-3.74) x10^3/uL Absolute Monos (auto) (0.24-0.86) x10^3/uL Absolute Nucleated RBC (0.00-0.012) x10^3u/L Lymphocytes % (19.3-51.7) % Monocytes % (4.7-12.5) % Eosinophils % (0.7-5.8) % Basophils % (0.1-1.2) % Absolute Granulocytes (1.56-6.13) x10^3/uL Basophils # (0.01-0.08) x10^3/uL Puncture Site pCO2 (35-45) mmHg pO2 (75-100) mmHg Base Excess (-2.0-2.0) O2 Saturation (94-100) g/dF ABG pH (7.35-7.45) ABG HCO3 (22-28) ABG O2 Sat (Measured) (95-100) % Ed Test A-a Gradient a/A Ratio Hemoglobin Carboxyhemoglobin (0.0-6.9) % THgb Methemoglobin (1.4-1.5) % Potassium (3.5-5.1) Temperature C POC O2 Flow Rate % Sodium (135-145) mmol/L Chloride (98-107) mmol/L Carbon Dioxide (22-30) mmol/L Anion Gap (5-15) MEQ/L BUN (7-17) mg/dL Creatinine (0.52-1.04) mg/dL Estimated GFR ML/MIN Glucose (74-106) mg/dL POC Glucometer (74 to 106) mg/dL Lactic Acid (0.4-2.0) Calcium (8.4-10.2) mg/dL Magnesium (1.6-2.3) mg/dL Total Bilirubin (0.2-1.3) mg/dL AST (14-36) U/L ALT (0-35) U/L Alkaline Phosphatase (38-126) U/L Troponin I < 0.012 < 0.012 (0.000-0.033) ng/mL NT-Pro-B Natriuret Pep (<300) pg/mL Serum Total Protein (6.3-8.2) g/dL Albumin (3.5-5.0) g/dL Influenza Type A Ag NEGATIVE (NEGATIVE) Influenza Type B Ag NEGATIVE (NEGATIVE) RSV (PCR) NEGATIVE (NEGATIVE) SARS-CoV-2 (PCR) NEGATIVE (NEGATIVE) 07/02/24 07/03/24 07/03/24 Range/Units 21:30 02:07 02:07 WBC 4.2 (3.98-10.04) x10^3/uL RBC 4.43 (3.93-5.22) x10^6/uL Hgb 12.6 (11.2-15.7) g/dL Hct 39.5 (34.1-44.9) % MCV 89.2 (79.4-94.8) fL MCH 28.4 (25.6-32.2) pg MCHC 31.9 L (32.2-35.5) g/dL RDW 12.4 (11.7-14.4) % Plt Count 222 (182-369) x10^3/uL MPV 9.7 (9.4-12.3) fL Gran % (34.0-71.1) % Immature Gran % (Auto) (0.001-0.429) % Nucleat RBC Rel Count (0.00-0.2) % Eos # (Auto) (0.04-0.36) x10^3/uL Immature Gran # (Auto) (0.001-0.031) x10^3u/L Absolute Lymphs (auto) (1.18-3.74) x10^3/uL Absolute Monos (auto) (0.24-0.86) x10^3/uL Absolute Nucleated RBC (0.00-0.012) x10^3u/L Lymphocytes % (19.3-51.7) % Monocytes % (4.7-12.5) % Eosinophils % (0.7-5.8) % Basophils % (0.1-1.2) % Absolute Granulocytes (1.56-6.13) x10^3/uL Basophils # (0.01-0.08) x10^3/uL Puncture Site pCO2 (35-45) mmHg pO2 (75-100) mmHg Base Excess (-2.0-2.0) O2 Saturation (94-100) g/dF ABG pH (7.35-7.45) ABG HCO3 (22-28) ABG O2 Sat (Measured) (95-100) % Ed Test A-a Gradient a/A Ratio Hemoglobin Carboxyhemoglobin (0.0-6.9) % THgb Methemoglobin (1.4-1.5) % Potassium (3.5-5.1) Temperature C POC O2 Flow Rate % Sodium (135-145) mmol/L Chloride (98-107) mmol/L Carbon Dioxide (22-30) mmol/L Anion Gap (5-15) MEQ/L BUN (7-17) mg/dL Creatinine (0.52-1.04) mg/dL Estimated GFR ML/MIN Glucose (74-106) mg/dL POC Glucometer 282 H (74 to 106) mg/dL Lactic Acid (0.4-2.0) Calcium (8.4-10.2) mg/dL Magnesium (1.6-2.3) mg/dL Total Bilirubin (0.2-1.3) mg/dL AST (14-36) U/L ALT (0-35) U/L Alkaline Phosphatase (38-126) U/L Troponin I < 0.012 (0.000-0.033) ng/mL NT-Pro-B Natriuret Pep (<300) pg/mL Serum Total Protein (6.3-8.2) g/dL Albumin (3.5-5.0) g/dL Influenza Type A Ag (NEGATIVE) Influenza Type B Ag (NEGATIVE) RSV (PCR) (NEGATIVE) SARS-CoV-2 (PCR) (NEGATIVE) 07/03/24 Range/Units 02:07 WBC (3.98-10.04) x10^3/uL RBC (3.93-5.22) x10^6/uL Hgb (11.2-15.7) g/dL Hct (34.1-44.9) % MCV (79.4-94.8) fL MCH (25.6-32.2) pg MCHC (32.2-35.5) g/dL RDW (11.7-14.4) % Plt Count (182-369) x10^3/uL MPV (9.4-12.3) fL Gran % (34.0-71.1) % Immature Gran % (Auto) (0.001-0.429) % Nucleat RBC Rel Count (0.00-0.2) % Eos # (Auto) (0.04-0.36) x10^3/uL Immature Gran # (Auto) (0.001-0.031) x10^3u/L Absolute Lymphs (auto) (1.18-3.74) x10^3/uL Absolute Monos (auto) (0.24-0.86) x10^3/uL Absolute Nucleated RBC (0.00-0.012) x10^3u/L Lymphocytes % (19.3-51.7) % Monocytes % (4.7-12.5) % Eosinophils % (0.7-5.8) % Basophils % (0.1-1.2) % Absolute Granulocytes (1.56-6.13) x10^3/uL Basophils # (0.01-0.08) x10^3/uL Puncture Site pCO2 (35-45) mmHg pO2 (75-100) mmHg Base Excess (-2.0-2.0) O2 Saturation (94-100) g/dF ABG pH (7.35-7.45) ABG HCO3 (22-28) ABG O2 Sat (Measured) (95-100) % Ed Test A-a Gradient a/A Ratio Hemoglobin Carboxyhemoglobin (0.0-6.9) % THgb Methemoglobin (1.4-1.5) % Potassium 4.1 (3.5-5.1) Temperature C POC O2 Flow Rate % Sodium 137 (135-145) mmol/L Chloride 101 (98-107) mmol/L Carbon Dioxide 25 (22-30) mmol/L Anion Gap 14.4 (5-15) MEQ/L BUN 18 H (7-17) mg/dL Creatinine 0.55 (0.52-1.04) mg/dL Estimated GFR 90.9 ML/MIN Glucose 256 H (74-106) mg/dL POC Glucometer (74 to 106) mg/dL Lactic Acid (0.4-2.0) Calcium 9.2 (8.4-10.2) mg/dL Magnesium (1.6-2.3) mg/dL Total Bilirubin 0.60 (0.2-1.3) mg/dL AST 27 (14-36) U/L ALT 25 (0-35) U/L Alkaline Phosphatase 85 (38-126) U/L Troponin I (0.000-0.033) ng/mL NT-Pro-B Natriuret Pep (<300) pg/mL Serum Total Protein 6.6 (6.3-8.2) g/dL Albumin 4.1 (3.5-5.0) g/dL Influenza Type A Ag (NEGATIVE) Influenza Type B Ag (NEGATIVE) RSV (PCR) (NEGATIVE) SARS-CoV-2 (PCR) (NEGATIVE) Radiology Exams: Radiology Procedures Category Date Time Status CHEST 1 VIEW (PORTABLE) Stat Exams 07/02/24 16:05 Completed Assessment/Plan (1) Acute respiratory failure with hypoxia Current Visit: Yes Status: Acute Assessment & Plan: -2/2 to COPD exacerbation -CXR reviewed showing demonstrates mild bibasilar subsegmental atelectasis/scarring and tiny right base calcified granuloma. Heart not enlarged again with moderate size hiatal hernia. Bony thorax intact again with osteopenia and mild degenerative changes. No new/acute findings. -Supplemental oxygen to maintain spo2 gaol > 90% - currently on 3L - 2L at baseline -RT eval and follow -Nebs/INH -Ceftriaxone/azithromycin Code(s): J96.01 - ACUTE RESPIRATORY FAILURE WITH HYPOXIA (2) COPD with exacerbation Current Visit: Yes Status: Acute Assessment & Plan: -see ARF Code(s): J44.1 - CHRONIC OBSTRUCTIVE PULMONARY DISEASE W (ACUTE) EXACERBATION (3) HTN (hypertension) Current Visit: Yes Status: Acute Assessment & Plan: -Stable continue home meds Code(s): I10 - ESSENTIAL (PRIMARY) HYPERTENSION (4) Type 2 diabetes mellitus Current Visit: Yes Status: Acute Assessment & Plan: -ADA diet -Accuchecks -SSI -change to high dose (5) EMILY (acute kidney injury) Current Visit: Yes Status: Acute Assessment & Plan: -creat reviewed at 0.55- resolved -monitor renal/lytes daily -avoid nephrotoxic agents VTE Lovenox PPI: protonix Dispo 1-2 days Code(s): N17.9 - ACUTE KIDNEY FAILURE, UNSPECIFIED
[2024-07-03] MEDS ORDERED: DUONEB 0.5-3 MG/3 ml Neb IH ONE (07:14)
[2024-07-03] MEDS: Advair Hfa 115/21 Common canister IH SCH (07:17)
[2024-07-03] MEDS: HUMALOG SQ PRN (07:56)
[2024-07-03] MEDS: VITAMIN D PO SCH (10:00)
[2024-07-03] MEDS ORDERED: Amaryl 2 MG PO SCH (10:00)
[2024-07-03] MEDS ORDERED: NON-FORMULARY ITEM (Omeprazole [Omeprazole] 40 MG Capsule.Dr) PO SCH (10:00)
[2024-07-03] MEDS: ENOXAPARIN SODIUM SQ SCH (10:01)
[2024-07-03] MEDS: PROTONIX 40 MG IV IV SCH (10:01)
[2024-07-03] MEDS: Zocor 10MG PO SCH (10:01)
[2024-07-03] MEDS: NORVASC 5 MG PO SCH (10:01)
[2024-07-03] MEDS: Toprol-Xl 25MG Tablets PO SCH (10:01)
[2024-07-03] MEDS: Singulair 10 MG PO SCH (10:01)
[2024-07-03] MEDS: Vitamin B-12 500 MCG PO SCH (10:01)
[2024-07-03] MEDS: DELTASONE 20 MG PO SCH (10:12)
[2024-07-03] MEDS ORDERED: ROCEPHIN 1 GM / 100 ML NaCl 1 GM/100 ML IVPB IV SCH (17:00)
[2024-07-03] MEDS: HUMALOG SQ SCH (17:21)
[2024-07-03] MEDS ORDERED: ZITHROMAX IV*** 500 MG in Sodium Chloride 0.9% 250 ML 250 ML IV SCH (18:00)
[2024-07-04 05:01] LABS: Absolute Neutrophil Ct (ANC) 8.17 x10^3/uL (1.56-6.13); BASOPHIL % 0.2 % (0.1-1.2); Basophil (Absolute #) 0.02 x10^3/uL (0.01-0.08); Eosinophil (Absolute #) 0 x10^3/uL (0.04-0.36); Hematocrit 38.6 % (34.1-44.9); Hemoglobin 12.3 g/dL (11.2-15.7); IMMATURE GRAN # 0.07 x10^3u/L (0.001-0.031); IMMATURE GRAN % 0.7 % (0.001-0.429); Lymphocyte (Absolute #) 0.61 x10^3/uL (1.18-3.74); Lymphocytes % 6.5 % (19.3-51.7); Mean Cell Volume 89.6 fL (79.4-94.8); Mean Corpuscular Hemoglobin 28.5 pg (25.6-32.2); Mean Corpuscular Hgb Concent. 31.9 g/dL (32.2-35.5); Mean Platelet Volume 10.1 fL (9.4-12.3); Monocytes % 5.3 % (4.7-12.5); Neutrophil % 87.3 % (34.0-71.1); Platelet Count 267 x10^3/uL (182-369); Red Blood Count 4.31 x10^6/uL (3.93-5.22); Red Cell Distribution Width 12.8 % (11.7-14.4); White Blood Count 9.4 x10^3/uL (3.98-10.04)
[2024-07-04 05:20] LABS: ALBUMIN 4.7 g/dL (3.5-5.0); ANION GAP 16.1 MEQ/L (5-15); BILIRUBIN,TOTAL 0.5 mg/dL (0.2-1.3); Calcium 9.9 mg/dL (8.4-10.2); Creatinine 1 0.77 mg/dL (0.52-1.04); EST GLOMERULAR FILTRATION RATE 76.5 ML/MIN; Potassium 4.4 mmol/L (3.5-5.1); Total Protein 7.5 g/dL (6.3-8.2)
[2024-07-04 07:19] VITALS: RESP 16
[2024-07-04 07:24] VITALS: PULSE 89; O2SAT 98
--- NOTE | 2024-07-04 09:32 | PCM.DS ---
Discharge Summary Date of Admission: 07/02/24 18:30 Date of Discharge: 07/04/24 Admitting Physician: NAREN MANRIQUE MD Primary Care Provider: KELLY RAMOS DO Allergies Allergies metformin Adverse Reaction (Verified 07/02/24 16:02) Sick to stomach, headache Hospital Summary - Hospital Course Hospital Course: Ms. Garcia is an 84 year old female with a pmhx of hypertension, type 2 diabetes, and COPD who presented to ED 07/02/24 with worsening shortness of breath for 23 days. She denied fever, chills, or sick contacts but reported a mild productive cough. In the ER, she was tachypneic and hypoxic, prompting treatment with steroids, nebulizers, and empiric antibiotics. CXR shows a nonacute chest with chronic features. Admitted with COPD exacerbation with hypoxia and received Solumedrol, Duonebs, Rocephin, Zithromax, supplemental oxygen. EMILY has resolved. Endorses improvement in dyspnea and cough. At baseline oxygen at 3L - 2L baseline. Will discharge patient on prednisone and she is to continue home nebulizer treatments as needed. Patient is stable for discharge and agreeable to plan. Discharge Note New Diagnosis: COPD exacerbation New Medications: Prednisone Follow Up: Pulm/PCP I spent 35 minutes [id number] with the patient on the day of discharge performing discharge exam, discussing hospital stay and discharge instructions with patient and caregivers, preparation of discharge records, prescriptions & referral forms and addressing any questions/concerns the patient had as francisca owens above. - Vitals & Intake/Output Vital Signs: Vital Signs Temperature 97.8 F 07/04/24 07:24 Pulse Rate 89 07/04/24 07:24 Respiratory Rate 16 07/04/24 07:24 Blood Pressure 139/74 07/04/24 07:24 O2 Sat by Pulse Oximetry 98 07/04/24 07:24 Intake & Output: Intake & Output 07/01/24 07/02/24 07/03/24 07/04/24 11:59 11:59 11:59 11:59 Intake Total 1160 1300 Balance 1160 1300 Weight 83 kg - Lab Result Diagrams: 07/04/24 04:56 07/04/24 04:56 Lab Results-Last 24 Hrs: Lab Results-Last 24 Hours 07/03/24 07/03/24 07/03/24 Range/Units 11:33 16:30 20:38 WBC (3.98-10.04) x10^3/uL RBC (3.93-5.22) x10^6/uL Hgb (11.2-15.7) g/dL Hct (34.1-44.9) % MCV (79.4-94.8) fL MCH (25.6-32.2) pg MCHC (32.2-35.5) g/dL RDW (11.7-14.4) % Plt Count (182-369) x10^3/uL MPV (9.4-12.3) fL Gran % (34.0-71.1) % Immature Gran % (Auto) (0.001-0.429) % Nucleat RBC Rel Count (0.00-0.2) % Eos # (Auto) (0.04-0.36) x10^3/uL Immature Gran # (Auto) (0.001-0.031) x10^3u/L Absolute Lymphs (auto) (1.18-3.74) x10^3/uL Absolute Monos (auto) (0.24-0.86) x10^3/uL Absolute Nucleated RBC (0.00-0.012) x10^3u/L Lymphocytes % (19.3-51.7) % Monocytes % (4.7-12.5) % Eosinophils % (0.7-5.8) % Basophils % (0.1-1.2) % Absolute Granulocytes (1.56-6.13) x10^3/uL Basophils # (0.01-0.08) x10^3/uL Sodium (135-145) mmol/L Potassium (3.5-5.1) mmol/L Chloride (98-107) mmol/L Carbon Dioxide (22-30) mmol/L Anion Gap (5-15) MEQ/L BUN (7-17) mg/dL Creatinine (0.52-1.04) mg/dL Estimated GFR ML/MIN Glucose (74-106) mg/dL POC Glucometer 227 H 226 H 268 H (74 to 106) mg/dL Calcium (8.4-10.2) mg/dL Total Bilirubin (0.2-1.3) mg/dL AST (14-36) U/L ALT (0-35) U/L Alkaline Phosphatase (38-126) U/L Serum Total Protein (6.3-8.2) g/dL Albumin (3.5-5.0) g/dL 07/04/24 07/04/24 07/04/24 Range/Units 04:56 04:56 07:16 WBC 9.4 (3.98-10.04) x10^3/uL RBC 4.31 (3.93-5.22) x10^6/uL Hgb 12.3 (11.2-15.7) g/dL Hct 38.6 (34.1-44.9) % MCV 89.6 (79.4-94.8) fL MCH 28.5 (25.6-32.2) pg MCHC 31.9 L (32.2-35.5) g/dL RDW 12.8 (11.7-14.4) % Plt Count 267 (182-369) x10^3/uL MPV 10.1 (9.4-12.3) fL Gran % 87.3 H (34.0-71.1) % Immature Gran % (Auto) 0.7 H (0.001-0.429) % Nucleat RBC Rel Count 0.0 (0.00-0.2) % Eos # (Auto) 0 L (0.04-0.36) x10^3/uL Immature Gran # (Auto) 0.07 H (0.001-0.031) x10^3u/L Absolute Lymphs (auto) 0.61 L (1.18-3.74) x10^3/uL Absolute Monos (auto) 0.50 (0.24-0.86) x10^3/uL Absolute Nucleated RBC 0.00 (0.00-0.012) x10^3u/L Lymphocytes % 6.5 L (19.3-51.7) % Monocytes % 5.3 (4.7-12.5) % Eosinophils % 0.0 L (0.7-5.8) % Basophils % 0.2 (0.1-1.2) % Absolute Granulocytes 8.17 H (1.56-6.13) x10^3/uL Basophils # 0.02 (0.01-0.08) x10^3/uL Sodium 137 (135-145) mmol/L Potassium 4.4 (3.5-5.1) mmol/L Chloride 98 (98-107) mmol/L Carbon Dioxide 27 (22-30) mmol/L Anion Gap 16.1 H (5-15) MEQ/L BUN 27 H (7-17) mg/dL Creatinine 0.77 (0.52-1.04) mg/dL Estimated GFR 76.5 ML/MIN Glucose 287 H (74-106) mg/dL POC Glucometer 275 H (74 to 106) mg/dL Calcium 9.9 (8.4-10.2) mg/dL Total Bilirubin 0.50 (0.2-1.3) mg/dL AST 30 (14-36) U/L ALT 24 (0-35) U/L Alkaline Phosphatase 91 (38-126) U/L Serum Total Protein 7.5 (6.3-8.2) g/dL Albumin 4.7 (3.5-5.0) g/dL Micro Results-Entire Visit: Microbiology 07/02/24 16:45 Blood Culture - Preliminary Blood 07/02/24 16:34 Blood Culture - Preliminary Blood Accuchecks Date 07/04/24 Date 07/03/24 Date 07/03/24 Date 07/03/24 Time 07:34 Time 21:00 Time 16:31 Time 11:35 - Radiology Exams Ordered Rad Exams-Entire Visit: Radiology Procedures Category Date Time Status CHEST 1 VIEW (PORTABLE) Stat Exams 07/02/24 16:05 Completed - Procedures and Test Procedures and Tests throughout Hospitalization: Therapy Orders & Screens 07/02/24 16:15 Respiratory Therapy Assessment DAILY Comment: 07/02/24 18:33 Oxygen Nasal Cannula 4 lpm Comment: Respiratory Therapy Consult ONCE Comment: Reason For Exam: 07/02/24 19:24 Respiratory Therapy Assessment DAILY Comment: 07/02/24 19:31 Respiratory MDI UD Comment: 07/02/24 20:38 Respiratory Therapy Consult ONCE Comment: Reason For Exam: Diagnosis: COPD exacerbation Discharge Exam General Appearance: no apparent distress Neurologic Exam: alert, oriented x 3, cooperative Eye Exam: PERRL Ears, Nose, Throat Exam: normal ENT inspection Neck Exam: normal inspection Respiratory Exam: wheezing Cardiovascular Exam: regular rate/rhythm, normal heart sounds Gastrointestinal/Abdomen Exam: soft, normal bowel sounds Pelvic Exam: deferred Rectal Exam: deferred Back Exam: normal inspection Extremity Exam: normal inspection Skin Exam: normal color Final Diagnosis/Problem List - Final Discharge Diagnosis/Problem (1) Acute respiratory failure with hypoxia Current Visit: Yes Status: Acute Code(s): J96.01 - ACUTE RESPIRATORY FAILURE WITH HYPOXIA (2) COPD with exacerbation Current Visit: Yes Status: Acute Code(s): J44.1 - CHRONIC OBSTRUCTIVE PULMONARY DISEASE W (ACUTE) EXACERBATION (3) HTN (hypertension) Current Visit: Yes Status: Chronic Code(s): I10 - ESSENTIAL (PRIMARY) HYPERTENSION (4) Type 2 diabetes mellitus Current Visit: Yes Status: Chronic (5) EMILY (acute kidney injury) Current Visit: Yes Status: Resolved Code(s): N17.9 - ACUTE KIDNEY FAILURE, UNSPECIFIED - Discharge Discharge Date: 07/04/24 Disposition: Home, Self-Care Condition: Stable Prescriptions: New Prednisone 20 mg [Deltasone 20 mg] 20 mg PO BID 5 Days #10 tablet Continue Albuterol 8 gm Mdi Hfa [Ventolin Hfa MDI] 8 gm IH QIDPRN PRN PRN Reason: Shortness Of Breath Albuterol 2.5 mg/3 ml Neb [Proventil 2.5 mg/3 ml Neb] 2.5 mg IH Q6H Lovastatin 20 mg PO DAILY Omeprazole 40 mg PO DAILY Amlodipine Besylate 5 mg [Norvasc 5 mg] 5 mg PO DAILY Metoprolol Succinate 25 mg Xl* [Toprol-Xl 25MG Tablets] 25 mg PO DAILY Lisinopril 20 mg [Zestril 20 MG] 20 mg PO BID Montelukast Sodium [Singulair] 10 mg PO DAILY Fluticasone/Umeclidin/Vilanter [Trelegy Ellipta 200-62.5-25] 1 blist IH DAILY Polyethylene Glycol 3350 17 gm [Miralax Powder 17GM PACKET] 17 gm PO QDP PRN PRN Reason: Constipation Ibandronate Sodium 150 mg PO UD Glimepiride 2 mg [Amaryl 2 MG] 2 mg PO DAILY Cyanocobalamin 500 Mcg [Vitamin B-12 500 MCG] 1,000 mcg PO DAILY Budesonide 0.5 mg/2 ml [Pulmicort 0.5 mg/2 ml Respules] 2 ml IH BID Azelastine Nasal [Astelin Nasal] 2 spray IN BID Cholecalciferol (Vitamin D3) [Vitamin D3] 100 mcg PO DAILY Discontinued Prednisone 20 mg [Deltasone 20 mg] 20 mg PO DAILY PRN PRN PRN Reason: Shortness Of Breath Follow up with: JEANNIE CORDOVA FNP [[employer]AFF] - 07/11/24 10:00 am (seeing Jeannie Cordova NP for )
[2024-07-04 11:59] VITALS: BP 141/70; TEMP 97.7
== END 2024-07-04 12:16 | disposition home or self-care (01) ==
LOC: ED 15:52 → MED SURG 18:30
PROVIDERS: ADMIT Internal Medicine; ATTEND Internal Medicine
DX: J96.01 Acute respiratory failure with hypoxia (principal); J44.1 Chronic obstructive pulmonary disease with (acute) exacerbation; I10 Essential (primary) hypertension; E11.9 Type 2 diabetes mellitus without complications; N17.9 Acute kidney failure, unspecified; E78.5 Hyperlipidemia, unspecified; K44.9 Diaphragmatic hernia without obstruction or gangrene; Z79.899 Other long term (current) drug therapy
CPT/HCPCS: 0241U; 36415; 36600; 71045; 80053; 82375; 82803; 82947; 83036; 83605; 83735; 83880; 84484; 85025; 85027; 87040; 93005; 93041; 94640; 94760; 96374; 99285; Q3014; 93268; J0456; J0696; J1650; J1817; J2919; A9270-GY; G0378

== ENCOUNTER 2024-12-12 11:08 | Observation (INO) | payer MEDICARE ==
[2024-12-12] MEDS ORDERED: DUONEB 0.5-3 MG/3 ml Neb IH ONE (11:36)
[2024-12-12] MEDS: DUONEB 0.5-3 MG/3 ml Neb IH ONE (11:40)
[2024-12-12] MEDS ORDERED: Sterile H2O 10 ml IJ ONE (11:45)
[2024-12-12] MEDS: solu-MEDROL 125 MG, Sterile H2O 10 ml 2 ML IV ONE (11:46)
[2024-12-12 12:05] LABS: BASOPHIL % 0.8 % (0.1-1.2); Basophil (Absolute #) 0.04 x10^3/uL (0.01-0.08); Eosinophil (Absolute #) 0.07 x10^3/uL (0.04-0.36); Hematocrit 37.4 % (34.1-44.9); Hemoglobin 12.0 g/dL (11.2-15.7); IMMATURE GRAN # 0.12 x10^3u/L (0.001-0.031); IMMATURE GRAN % 2.4 % (0.001-0.429); INR 1.0 (0.8-3.0); Lymphocyte (Absolute #) 0.86 x10^3/uL (1.18-3.74); Mean Corpuscular Hemoglobin 28.2 pg (25.6-32.2); Mean Corpuscular Hgb Concent. 32.1 g/dL (32.2-35.5); Monocyte (Absolute #) 0.67 x10^3/uL (0.24-0.86); NUCLEATED RBC # 0.00 x10^3u/L (0.00-0.012); NUCLEATED RBC % 0.0 % (0.00-0.2); PROTIME 10.9 SECONDS (9.4-12.5); Platelet Count 287 x10^3/uL (182-369); Red Blood Count 4.25 x10^6/uL (3.93-5.22); White Blood Count 5.0 x10^3/uL (3.98-10.04)
[2024-12-12 12:08] LABS: Calcium 9.2 mg/dL (8.4-10.2); Carbon Dioxide 28.0 mmol/L (22-30); Creatinine 1 0.72 mg/dL (0.52-1.04); EST GLOMERULAR FILTRATION RATE 82.9 ML/MIN; Glucose 297.0 mg/dL (74-106); Potassium 4.0 mmol/L (3.5-5.1); SGOT/AST 25.0 U/L (14-36); SGPT/ALT 18.0 U/L (0-35); Total Protein 6.9 g/dL (6.3-8.2)
--- NOTE | 2024-12-12 12:16 | ERPHSYRPT ---
- History of Present Illness Time Seen by Provider: 12/12/24 11:10 Source: patient, old records Exam Limitations: clinical condition Patient Subjective Stated Complaint: Pt. states, "I have been more SOB the last couple of days. I couldn't sleep last night because I couldn't get comfortable or lie flat. " Triage Nursing Assessment: Pt. arrives via w/c, A&Ox3, Skin P/W/D, Resp. labored, sob at rest. able to move all 4 ext. Physician History: This is an overweight 84-year-old white female patient who arrives her private vehicle and is a patient Dr. Ramos. Patient states that her shortness of breath began worsening approximately 3 days ago and became even worse in the last 2 days. Patient has history of frequent visits to the emergency department for this same condition. I reviewed the admission and discharge summary from the last hospital admission in July 2024. Patient states that her symptoms become more symptomatic as she is exerting herself. Last night, she could lie flat when attempting to go to sleep. Patient's oxygen saturation on her typical 3 L of oxygen via nasal cannula is 97 to 98%. This is a nonexertional value. Patient has a history of oxygen dependent COPD with 3 L of oxygen via nasal cannula. Patient has a history of hypertension, hyperlipidemia, diabetes and seasonal allergies. Patient denies chest pain Timing/Duration: day(s) (2 to 3 days. Worse in the last 2 days) Severity of Dyspnea-Max: moderate Severity of Dyspnea-Current: moderate Possible Cause: frequent episodes, chronic episodes Modifying Factors: Improves With: exertion (Worsens), lying down (Worsens), oxygen (Improves), rest (Improves) Associated Symptoms: wheezing (Bilateral expiratory), No chest pain/discomfort Allergies/Adverse Reactions: metformin Adverse Reaction (Verified 11/03/24 15:23) Sick to stomach, headache Home Medications: Albuterol 2.5 mg/3 ml Neb [Proventil 2.5 mg/3 ml Neb] 2.5 mg IH Q6H 03/08/19 [History] Albuterol 8 gm Mdi Hfa [Ventolin Hfa MDI] 8 gm IH QIDPRN PRN 03/08/19 [History] Lovastatin 20 mg PO DAILY 03/21/19 [History] Omeprazole 40 mg PO DAILY 04/02/21 [History] Amlodipine Besylate 5 mg [Norvasc 5 mg] 5 mg PO DAILY 07/13/23 [History] Lisinopril 20 mg [Zestril 20 MG] 20 mg PO BID 10/09/23 [History] Metoprolol Succinate 25 mg Xl* [Toprol-Xl 25MG Tablets] 25 mg PO DAILY 10/09/23 [History] Montelukast Sodium [Singulair] 10 mg PO DAILY 10/09/23 [History] Azelastine Nasal [Astelin Nasal] 2 spray IN BID 01/23/24 [History] Budesonide 0.5 mg/2 ml [Pulmicort 0.5 mg/2 ml Respules] 2 ml IH BID 01/23/24 [History] Cholecalciferol (Vitamin D3) [Vitamin D3] 100 mcg PO DAILY 01/23/24 [History] Cyanocobalamin 500 Mcg [Vitamin B-12 500 MCG] 1,000 mcg PO DAILY 01/23/24 [History] Fluticasone/Umeclidin/Vilanter [Trelegy Ellipta 200-62.5-25] 1 blist IH DAILY 01/23/24 [History] Glimepiride 2 mg [Amaryl 2 MG] 2 mg PO DAILY 01/23/24 [History] Ibandronate Sodium 150 mg PO UD 01/23/24 [History] Polyethylene Glycol 3350 17 gm [Miralax Powder 17GM PACKET] 17 gm PO QDP PRN 01/23/24 [History] Apixaban [Eliquis] 5 mg PO BID 12/12/24 [History] Hx Tetanus, Diphtheria Vaccination/Date Given: No Hx Influenza Vaccination/Date Given: No Hx Pneumococcal Vaccination/Date Given: Yes Travel Risk - International Travel Have you traveled outside of the country in past 3 weeks: No - Emerging Infectious Disease Are you exhibiting symptoms associated with any current EIDs: No Symptoms: Shortness of Breath - Review of Systems Constitutional: No Symptoms Eyes: No Symptoms Ears, Nose, & Throat: No Symptoms Respiratory: Dyspnea, Dyspnea on Exertion (PERALTA), Wheezing Cardiac: No Symptoms Abdominal/Gastrointestinal: No Symptoms Genitourinary Symptoms: No Symptoms Musculoskeletal: No Symptoms Skin: No Symptoms Neurological: No Symptoms Psychological: No Symptoms Endocrine: No Symptoms Hematologic/Lymphatic: No Symptoms Immunological/Allergic: No Symptoms All Other Systems: Reviewed and Negative - Past Medical History Pertinent Past Medical History: Yes Neurological History: No Pertinent History ENT History: No Pertinent History Cardiac History: High Cholesterol, Hypertension Respiratory History: COPD Endocrine Medical History: Diabetes Type II, Other Musculoskeletal History: Fractures, Osteoporosis GI Medical History: Diverticulitis, Diverticulosis, GERD, Gallbladder Disease History: No Pertinent History Psycho-Social History: No Pertinent History Female Reproductive Disorders: No Pertinent History Other Medical History: seasonal allergies, Post Covid April 2020, Left ankle fracture - Past Surgical History Past Surgical History: Yes Neuro Surgical History: No Pertinent History Cardiac: No Pertinent History Respiratory: No Pertinent History Gastrointestinal: Appendectomy, Cholecystectomy, Other Genitourinary: No Pertinent History Musculoskeletal: No Pertinent History Female Surgical History: Other Other Surgical History: diagnostic open abdominal, ankle fx and surgery, partial hysterectomy Significant Family History: heart disease, diabetes - Social History Smoking Status: Former smoker How long have you smoked: 65 years Exposure to second hand smoke: No Drug Use: none - Social Determinants of Health Will the patient participate in the screening: Declined to provide - Nursing Vital Signs Nursing Vital Signs: Initial Vital Signs Pulse Rate 97 H 12/12/24 11:07 Respiratory Rate 23 12/12/24 11:07 Blood Pressure 142/79 12/12/24 11:07 O2 Sat by Pulse Oximetry 97 12/12/24 11:07 Pain Scale Pain Intensity 0 - Physical Exam General Appearance: mild distress, alert, anxiety, obese Eye Exam: PERRL/EOMI, eyes nml inspection Ears, Nose, Throat Exam: hearing grossly normal, normal ENT inspection, normal pharynx Neck Exam: normal inspection, non-tender, supple, full range of motion Respiratory Exam: diminished breath sounds (Bilateral bibasilar), wheezing (Bilateral expiratory), No respiratory distress Cardiovascular/Chest Exam: normal heart sounds, regular rate/rhythm Abdominal/Gastrointestinal Exam: soft, normal bowel sounds, No tenderness Rectal Exam: not done Extremity Exam: non-tender, normal range of motion, normal inspection, no calf tenderness, no pedal edema, pelvis stable Neurologic Exam: alert, oriented x 3, cooperative, leasing 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 II-XII nml as tested, nml cerebellar function, nml station & gait, sensation nml Skin Exam: normal color, warm, dry Lymphatic Exam: No adenopathy SpO2 Interpretation: normal SpO2: 98 O2 Delivery: Nasal Cannula (3 L oxygen via nasal cannula) - Course Nursing assessment & vital signs reviewed: Yes Ordered Tests: Active Orders 24 hr Category Date Time Status Ur Coordinator STAT Care 12/12/24 11:41 Active EKG-ER Only STAT Care 12/12/24 11:40 Active IV Insertion STAT Care 12/12/24 11:40 Active Pulse Oximetry (ED) STAT Care 12/12/24 11:40 Active CHEST 1 VIEW (PORTABLE) Stat Exams 12/12/24 11:40 Completed BLOOD CULTURE Stat Lab 12/12/24 12:35 Received CBC W DIFF Stat Lab 12/12/24 11:50 Completed CMP Stat Lab 12/12/24 11:50 Completed Lactic Acid Stat Lab 12/12/24 11:49 Completed MAGNESIUM Stat Lab 12/12/24 11:50 Completed NT PRO BNPII Stat Lab 12/12/24 11:50 Completed PROTIME WITH INR Stat Lab 12/12/24 11:50 Completed TROPONIN Q4H Lab 12/12/24 11:50 Completed TROPONIN Q4H Lab 12/12/24 15:45 Ordered TROPONIN Q4H Lab 12/12/24 19:45 Ordered Respiratory Therapy Assessment DAILY RT 12/12/24 11:39 Active Medication Summary Discontinued Medications Generic Name Dose Route Start Last Admin Trade Name Freq PRN Reason Stop Dose Admin Albuterol/Ipratropium Confirm 12/12/24 11:36 Ipratropium/Albuterol Sulfate 3 Ml Ampul.Neb Administered 12/12/24 11:37 Dose 3 ml IH .STK-MED ONE Albuterol/Ipratropium 3 ml 12/12/24 11:39 12/12/24 11:40 Ipratropium/Albuterol Sulfate 3 Ml Ampul.Neb IH 12/12/24 11:40 3 ml STAT ONE Administration Methylprednisolone Sodium 0 mg 12/12/24 11:40 12/12/24 11:46 Succinate 125 mg/ Sterile IV 12/12/24 11:41 125 mg Water 2 ml STAT ONE Administration Methylprednisolone Sodium Succinate Confirm 12/12/24 11:45 Methylprednis Sod Succ 125 Mg/2 Ml Vial Administered 12/12/24 11:46 Dose 125 mg .ROUTE .STK-MED ONE Sterile Water Confirm 12/12/24 11:45 Water For Injection,Sterile 10 Ml Vial Administered 12/12/24 11:46 Dose 10 ml IJ .STK-MED ONE Lab/Rad Data: Laboratory Result Diagrams 12/12/24 11:50 12/12/24 11:50 Laboratory Results 12/12/24 12/12/24 12/12/24 Range/Units 12:45 11:50 11:50 WBC (3.98-10.04) x10^3/uL RBC (3.93-5.22) x10^6/uL Hgb (11.2-15.7) g/dL Hct (34.1-44.9) % MCV (79.4-94.8) fL MCH (25.6-32.2) pg MCHC (32.2-35.5) g/dL RDW (11.7-14.4) % Plt Count (182-369) x10^3/uL MPV (9.4-12.3) fL Gran % (34.0-71.1) % Immature Gran % (Auto) (0.001-0.429) % Nucleat RBC Rel Count (0.00-0.2) % Eos # (Auto) (0.04-0.36) x10^3/uL Immature Gran # (Auto) (0.001-0.031) x10^3u/L Absolute Lymphs (auto) (1.18-3.74) x10^3/uL Absolute Monos (auto) (0.24-0.86) x10^3/uL Absolute Nucleated RBC (0.00-0.012) x10^3u/L Lymphocytes % (19.3-51.7) % Monocytes % (4.7-12.5) % Eosinophils % (0.7-5.8) % Basophils % (0.1-1.2) % Absolute Granulocytes (1.56-6.13) x10^3/uL Basophils # (0.01-0.08) x10^3/uL PT (9.4-12.5) SECONDS INR (0.8-3.0) Sodium (135-145) mmol/L Potassium (3.5-5.1) mmol/L Chloride (98-107) mmol/L Carbon Dioxide (22-30) mmol/L Anion Gap (5-15) MEQ/L BUN (7-17) mg/dL Creatinine (0.52-1.04) mg/dL Estimated GFR ML/MIN Glucose (74-106) mg/dL Lactic Acid (0.4-2.0) Calcium (8.4-10.2) mg/dL Magnesium (1.6-2.3) mg/dL Total Bilirubin (0.2-1.3) mg/dL AST (14-36) U/L ALT (0-35) U/L Alkaline Phosphatase (38-126) U/L Troponin I < 0.012 (0.000-0.033) ng/mL NT-Pro-B Natriuret Pep 167 (<300) pg/mL Serum Total Protein (6.3-8.2) g/dL Albumin (3.5-5.0) g/dL Influenza Type A Ag NEGATIVE (NEGATIVE) Influenza Type B Ag NEGATIVE (NEGATIVE) RSV (PCR) NEGATIVE (NEGATIVE) SARS-CoV-2 (PCR) NEGATIVE (NEGATIVE) 12/12/24 12/12/24 12/12/24 Range/Units 11:50 11:50 11:50 WBC 5.0 (3.98-10.04) x10^3/uL RBC 4.25 (3.93-5.22) x10^6/uL Hgb 12.0 (11.2-15.7) g/dL Hct 37.4 (34.1-44.9) % MCV 88.0 (79.4-94.8) fL MCH 28.2 (25.6-32.2) pg MCHC 32.1 L (32.2-35.5) g/dL RDW 13.6 (11.7-14.4) % Plt Count 287 (182-369) x10^3/uL MPV 10.1 (9.4-12.3) fL Gran % 64.8 (34.0-71.1) % Immature Gran % (Auto) 2.4 H (0.001-0.429) % Nucleat RBC Rel Count 0.0 (0.00-0.2) % Eos # (Auto) 0.07 (0.04-0.36) x10^3/uL Immature Gran # (Auto) 0.12 H (0.001-0.031) x10^3u/L Absolute Lymphs (auto) 0.86 L (1.18-3.74) x10^3/uL Absolute Monos (auto) 0.67 (0.24-0.86) x10^3/uL Absolute Nucleated RBC 0.00 (0.00-0.012) x10^3u/L Lymphocytes % 17.2 L (19.3-51.7) % Monocytes % 13.4 H (4.7-12.5) % Eosinophils % 1.4 (0.7-5.8) % Basophils % 0.8 (0.1-1.2) % Absolute Granulocytes 3.24 (1.56-6.13) x10^3/uL Basophils # 0.04 (0.01-0.08) x10^3/uL PT 10.9 (9.4-12.5) SECONDS INR 1.00 (0.8-3.0) Sodium 135 (135-145) mmol/L Potassium 4.0 (3.5-5.1) mmol/L Chloride 99 (98-107) mmol/L Carbon Dioxide 28 (22-30) mmol/L Anion Gap 12.3 (5-15) MEQ/L BUN 12 (7-17) mg/dL Creatinine 0.72 (0.52-1.04) mg/dL Estimated GFR 82.9 ML/MIN Glucose 297 H (74-106) mg/dL Lactic Acid (0.4-2.0) Calcium 9.2 (8.4-10.2) mg/dL Magnesium 1.8 (1.6-2.3) mg/dL Total Bilirubin 0.70 (0.2-1.3) mg/dL AST 25 (14-36) U/L ALT 18 (0-35) U/L Alkaline Phosphatase 105 (38-126) U/L Troponin I (0.000-0.033) ng/mL NT-Pro-B Natriuret Pep (<300) pg/mL Serum Total Protein 6.9 (6.3-8.2) g/dL Albumin 4.0 (3.5-5.0) g/dL Influenza Type A Ag (NEGATIVE) Influenza Type B Ag (NEGATIVE) RSV (PCR) (NEGATIVE) SARS-CoV-2 (PCR) (NEGATIVE) 12/12/24 Range/Units 11:49 WBC (3.98-10.04) x10^3/uL RBC (3.93-5.22) x10^6/uL Hgb (11.2-15.7) g/dL Hct (34.1-44.9) % MCV (79.4-94.8) fL MCH (25.6-32.2) pg MCHC (32.2-35.5) g/dL RDW (11.7-14.4) % Plt Count (182-369) x10^3/uL MPV (9.4-12.3) fL Gran % (34.0-71.1) % Immature Gran % (Auto) (0.001-0.429) % Nucleat RBC Rel Count (0.00-0.2) % Eos # (Auto) (0.04-0.36) x10^3/uL Immature Gran # (Auto) (0.001-0.031) x10^3u/L Absolute Lymphs (auto) (1.18-3.74) x10^3/uL Absolute Monos (auto) (0.24-0.86) x10^3/uL Absolute Nucleated RBC (0.00-0.012) x10^3u/L Lymphocytes % (19.3-51.7) % Monocytes % (4.7-12.5) % Eosinophils % (0.7-5.8) % Basophils % (0.1-1.2) % Absolute Granulocytes (1.56-6.13) x10^3/uL Basophils # (0.01-0.08) x10^3/uL PT (9.4-12.5) SECONDS INR (0.8-3.0) Sodium (135-145) mmol/L Potassium (3.5-5.1) mmol/L Chloride (98-107) mmol/L Carbon Dioxide (22-30) mmol/L Anion Gap (5-15) MEQ/L BUN (7-17) mg/dL Creatinine (0.52-1.04) mg/dL Estimated GFR ML/MIN Glucose (74-106) mg/dL Lactic Acid 1.7 (0.4-2.0) Calcium (8.4-10.2) mg/dL Magnesium (1.6-2.3) mg/dL Total Bilirubin (0.2-1.3) mg/dL AST (14-36) U/L ALT (0-35) U/L Alkaline Phosphatase (38-126) U/L Troponin I (0.000-0.033) ng/mL NT-Pro-B Natriuret Pep (<300) pg/mL Serum Total Protein (6.3-8.2) g/dL Albumin (3.5-5.0) g/dL Influenza Type A Ag (NEGATIVE) Influenza Type B Ag (NEGATIVE) RSV (PCR) (NEGATIVE) SARS-CoV-2 (PCR) (NEGATIVE) - Progress Progress: improved, re-examined Air Movement: fair Progress Note: 12/12/24 12:14 My medical decision making and the assignment of moderate to high complexity of this patient's medical issue today is based on review of the patient's past medical history, review the patient's medication list, reviewed patient drug allergy list, history of present illness and physical findings on examination. The workup in this patient includes placement of injury is line, CBC, CMP, urinalysis, we will also order a chest x-ray, twelve-lead EKG, troponin level, BNP level. We will consult respiratory therapy to provide the patient with a nebulizer treatment as well as provide the patient with intravenous Solu-Medrol. We will obtain blood cultures. Differential diagnosis includes but is not limited to viral infection, pulmonary infiltrate, pneumonia, COPD exacerbation, CHF exacerbation, arrhythmia, myocardial infarction 12/12/24 12:51 I interpreted the patient's laboratory data results. Based on the laboratory data results, there are no acute, emergent medical issues. The patient COVID and viral status is pending. Chest x-ray preliminary report interpreted by me shows no acute cardiopulmonary process. Final chest x-ray report read by the radiologist. His impression is that there is a new mild left base discoid atelectasis. There is stable calcified granuloma and small hiatal hernia present. There are no acute findings. 12/12/24 14:41 I reviewed the laboratory data results with the patient and family member as well as the results of the chest x-ray. The patient and the family feel that she would be best served being placed in observation with monitoring, nebulizer treatments and intravenous steroids. I think this is reasonable. I will contact the telehospitalist. 12/12/24 15:19 I spoke with the telehospitalist, Dr. Lang. I reviewed the patient history, presenting complaint, physical findings on examination and the workup performed with results. He accepted patient to be placed in observation will provide the patient with respiratory therapy evaluation/management, nebulizer treatments, steroid infusions and monitoring. Blood Culture(s) Obtained: Yes Antibiotics given: Yes Counseled pt/family regarding: lab results, diagnosis, rad results Medical Desision Making - Independent Historian Additional History obtained from: Family - Diagnostic Testing Diagnostic test were ordered, analyzed, and reviewed by me: Yes Radiological Interpretation: Interpreted by me, Reviewed by me, Teleradiologist Report - Risk of complications The pt has a high risk of morbidity or mortality based on: Decision regarding hospitilization or escalation of hosp level of care - Departure Departure Disposition: Observation Clinical Impression: Shortness of breath, COPD exacerbation Condition: Fair Critical Care Time: No Referrals: KELLY RAMOS DO [Primary Care Provider, [facility]] - Follow up/PCP as directed Instructions: Chronic Obstructive Pulmonary Disease
--- NOTE | 2024-12-12 12:29 | XRAY ---
Indication: Short of breath. Tiny nonoccluding PE on CT chest November 03, 2024. Comparison: November 03, 2024 Portable chest again hyperinflated with new mild left base discoid atelectasis Stable CT proven right base calcified granuloma and small hiatal hernia. Remaining heart and lungs unremarkable. No acute findings.
[2024-12-12 13:33] LABS: INFLUENZA A NEGATIVE (NEGATIVE); INFLUENZA B NEGATIVE (NEGATIVE); RESPIRATORY SYNCTIAL VIRUS NEGATIVE (NEGATIVE); SARS-CoV-2 Xpert Express NEGATIVE (NEGATIVE)
[2024-12-12] MEDS ORDERED: ROCEPHIN 1 GM / 100 ML NaCl 1 GM/100 ML IVPB IV ONE (15:25)
[2024-12-12] MEDS: ROCEPHIN 1 GM / 100 ML NaCl 1 GM/100 ML IVPB IV ONE (15:26)
[2024-12-12] MEDS ORDERED: HUMULIN R SQ PRN (16:44)
--- NOTE | 2024-12-12 17:20 | PCM.HP ---
History of Present Illness - Chief Complaint Chief Complaint: COPD exacerbation Date: 12/12/24 History of Present Illness: is a 84-year-old female with a past medical history of COPD on 3 L oxygen, hypertension, hyperlipidemia, type II diabetes mellitus, GERD, diverticulosis, and osteoporosis presented to the emergency department with worsening shortness of breath that began approximately three days ago and had progressively worsened over the past two days. She has a history of frequent ED visits for similar symptoms, with her most recent admission from 11/03 to 11/06 for COPD exacerbation and hypertension. She reported that her shortness of breath is worse with exertion and noted difficulty lying flat the night prior to admission. On her baseline 3 L nasal cannula, her oxygen saturation remained 9798%. Laboratory results were overall non-concerning, chest X-ray was clear, and flu, COVID, and RSV testing were negative. In the ED, she received Duonebs, ceftriaxone, and steroids without reported improvement. Her daughter, who accompanied her, expressed concern that the patients symptoms may be anxiety- related, particularly since the daughter has been out of town and unable to attend to her. On exam, the patient was noted to have pursed-lip breathing and diminished lung sounds. She denied chest pain, abdominal pain, nausea, vomiting, or diarrhea, and was unable to identify a clear cause for her symptoms. - Review of Systems Constitutional: No Fever, No Chills Eyes: No Symptoms Ears, Nose, & Throat: No Symptoms Respiratory: Orthopnea, Short Of Breath, No Cough Cardiac: No Chest Pain, No Edema, No Syncope Abdominal/Gastrointestinal: No Abdominal Pain, No Nausea, No Vomiting, No Diarrhea Genitourinary Symptoms: No Dysuria Musculoskeletal: No Back Pain, No Neck Pain Skin: No Rash Neurological: No Dizziness, No Focal Weakness, No Sensory Changes Psychological: No Symptoms Endocrine: No Symptoms Hematologic/Lymphatic: No Symptoms Immunological/Allergic: No Symptoms Medications & Allergies Home Medications: Home Medication List Albuterol 2.5 mg/3 ml Neb [Proventil 2.5 mg/3 ml Neb] 2.5 mg IH Q6HPRN PRN 03/08/19 [History Confirmed 12/12/24] Albuterol 8 gm Mdi Hfa [Ventolin Hfa MDI] 8 gm IH QIDPRN PRN 03/08/19 [Hi story Confirmed 12/12/24] Lovastatin 20 mg PO DAILY 03/21/19 [History Confirmed 12/12/24] Omeprazole 40 mg PO DAILY 04/02/21 [History Confirmed 12/12/24] Lisinopril 20 mg [Zestril 20 MG] 20 mg PO DAILY 10/09/23 [History Confirmed 12/12/24] Metoprolol Succinate 25 mg Xl* [Toprol-Xl 25MG Tablets] 25 mg PO DAILY 10/09/23 [History Confirmed 12/12/24] Montelukast Sodium [Singulair] 10 mg PO DAILY 10/09/23 [History Confirmed 12/12/24] Azelastine Nasal [Astelin Nasal] 2 spray IN BID 01/23/24 [History Confirmed 12/12/24] Budesonide 0.5 mg/2 ml [Pulmicort 0.5 mg/2 ml Respules] 2 ml IH BID 01/23/24 [History Confirmed 12/12/24] Cholecalciferol (Vitamin D3) [Vitamin D3] 100 mcg PO DAILY 01/23/24 [History Confirmed 12/12/24] Cyanocobalamin 500 Mcg [Vitamin B-12 500 MCG] 1,000 mcg PO DAILY 01/23/24 [History Confirmed 12/12/24] Fluticasone/Umeclidin/Vilanter [Trelegy Ellipta 200-62.5-25] 1 blist IH DAILY 01/23/24 [History Confirmed 12/12/24] Ibandronate Sodium 150 mg PO UD 01/23/24 [History Confirmed 12/12/24] Polyethylene Glycol 3350 17 gm [Miralax Powder 17GM PACKET] 17 gm PO QDP PRN 01/23/24 [History Confirmed 12/12/24] Guaifenesin 100 mg/5 ml [Robitussin 100 MG/5 ML] 10 ml PO Q4H PRN PRN 11/06/24 [Rx Confirmed 12/12/24] PANTOPRAZOLE 40 mg Tablet [Protonix 40MG Tablet] 40 mg PO DAILY tablet 11/06/24 [Rx Confirmed 12/12/24] Amlodipine Besylate 5 mg [Norvasc 5 mg] 2.5 mg PO DAILY 12/12/24 [History Confirmed 12/12/24] Apixaban [Eliquis] 5 mg PO BID 12/12/24 [History Confirmed 12/12/24] Sitagliptin Phosphate 50 MG [Januvia 50 MG] 100 mg PO DAILY 12/12/24 [History Confirmed 12/12/24] Allergies/Adverse Reactions: Allergies Allergy/AdvReac Type Severity Reaction Status Date / Time metformin AdvReac Verified 12/12/24 16:55 - Past Medical History Past Medical History: Yes Neurological History: No Pertinent History ENT History: No Pertinent History Cardiac History: High Cholesterol, Hypertension Respiratory History: COPD Endocrine Medical History: Diabetes Type II, Other Musculoskelatal History: Fractures, Osteoporosis GI Medical History: Diverticulitis, Diverticulosis, GERD, Gallbladder Disease History: No Pertinent History Pyscho-Social History: No Pertinent History Reproductive Disorders: No Pertinent History Comment: seasonal allergies, Post Covid April, Left ankle fracture - Past Surgical History Past Surgical History: Yes Neuro Surgical History: No Pertinent History Cardiac History: No Pertinent History Respiratory Surgery: No Pertinent History GI Surgical History: Appendectomy, Cholecystectomy, Other Genitourinary Surgical Hx: No Pertinent History Musculskeletal Surgical Hx: No Pertinent History Female Surgical History: Other Other Surgical History: ankle fx and surgery, partial hysterectomy Significant Family History: heart disease, diabetes - Social History Smoking Status: Former smoker How long have you smoked: 65 years Exposure to second hand smoke: No Alcohol: None Drug Use: none - Social Determinants of Health Will the patient participate in the screening: Declined to provide Do you worry about a steady place to live?: No In the past 12 months,have you had to go without utilities?: No Have you or anyone in your house had to go without enough: No Transportation Issues: No Has anyone in your support network made you feel unsafe?: No Does the patient want assistance with any of the above?: No - Physical Exam Vital Signs: Vital Signs - 24 hr Temp Pulse Resp BP BP Pulse Ox 12/12/24 17:10 97.4 F 115 H 23 193/84 97 12/12/24 16:59 115 H 24 97 12/12/24 16:01 99 H 26 H 121/76 97 12/12/24 15:31 97 H 24 178/98 97 12/12/24 15:24 98 12/12/24 15:00 92 H 20 117/60 98 12/12/24 14:30 91 H 19 140/89 12/12/24 14:00 94 H 18 111/71 97 12/12/24 13:31 90 21 128/80 96 12/12/24 13:00 91 H 21 103/72 95 12/12/24 12:30 92 H 20 114/77 96 12/12/24 12:00 93 H 24 125/73 98 12/12/24 11:41 96 H 22 98 12/12/24 11:40 95 12/12/24 11:30 96 H 17 119/73 98 12/12/24 11:09 98.2 F 104 H 24 142/79 96 12/12/24 11:07 97 H 23 142/79 97 General Appearance: no apparent distress, alert, obese Neurologic Exam: alert, oriented x 3, cooperative, normal mood/affect, nml cerebellar function, nml station & gait, sensation nml, No motor deficits Eye Exam: PERRL/EOMI, eyes nml inspection Ears, Nose, Throat Exam: normal ENT inspection, TMs normal, pharynx normal, moist mucous membranes Neck Exam: normal inspection, non-tender, supple, full range of motion Respiratory Exam: diminished breath sounds, No respiratory distress Cardiovascular Exam: regular rate/rhythm, normal heart sounds, normal peripheral pulses, tachycardia Gastrointestinal/Abdomen Exam: soft, normal bowel sounds, No tenderness, No mass Back Exam: normal inspection, normal range of motion, No CVA tenderness, No vertebral tenderness Extremity Exam: normal inspection, normal range of motion, pelvis stable Skin Exam: normal color, warm, dry, No rash Lymphatic Exam: No adenopathy Results - Labs Lab/Micro Results: Lab Results-Last 24 Hours 12/12/24 12/12/24 12/12/24 Range/Units 11:49 11:50 11:50 WBC 5.0 (3.98-10.04) x10^3/uL RBC 4.25 (3.93-5.22) x10^6/uL Hgb 12.0 (11.2-15.7) g/dL Hct 37.4 (34.1-44.9) % MCV 88.0 (79.4-94.8) fL MCH 28.2 (25.6-32.2) pg MCHC 32.1 L (32.2-35.5) g/dL RDW 13.6 (11.7-14.4) % Plt Count 287 (182-369) x10^3/uL MPV 10.1 (9.4-12.3) fL Gran % 64.8 (34.0-71.1) % Immature Gran % (Auto) 2.4 H (0.001-0.429) % Nucleat RBC Rel Count 0.0 (0.00-0.2) % Eos # (Auto) 0.07 (0.04-0.36) x10^3/uL Immature Gran # (Auto) 0.12 H (0.001-0.031) x10^3u/L Absolute Lymphs (auto) 0.86 L (1.18-3.74) x10^3/uL Absolute Monos (auto) 0.67 (0.24-0.86) x10^3/uL Absolute Nucleated RBC 0.00 (0.00-0.012) x10^3u/L Lymphocytes % 17.2 L (19.3-51.7) % Monocytes % 13.4 H (4.7-12.5) % Eosinophils % 1.4 (0.7-5.8) % Basophils % 0.8 (0.1-1.2) % Absolute Granulocytes 3.24 (1.56-6.13) x10^3/uL Basophils # 0.04 (0.01-0.08) x10^3/uL PT (9.4-12.5) SECONDS INR (0.8-3.0) Sodium 135 (135-145) mmol/L Potassium 4.0 (3.5-5.1) mmol/L Chloride 99 (98-107) mmol/L Carbon Dioxide 28 (22-30) mmol/L Anion Gap 12.3 (5-15) MEQ/L BUN 12 (7-17) mg/dL Creatinine 0.72 (0.52-1.04) mg/dL Estimated GFR 82.9 ML/MIN Glucose 297 H (74-106) mg/dL Lactic Acid 1.7 (0.4-2.0) Calcium 9.2 (8.4-10.2) mg/dL Magnesium 1.8 (1.6-2.3) mg/dL Total Bilirubin 0.70 (0.2-1.3) mg/dL AST 25 (14-36) U/L ALT 18 (0-35) U/L Alkaline Phosphatase 105 (38-126) U/L Troponin I (0.000-0.033) ng/mL NT-Pro-B Natriuret Pep (<300) pg/mL Serum Total Protein 6.9 (6.3-8.2) g/dL Albumin 4.0 (3.5-5.0) g/dL Influenza Type A Ag (NEGATIVE) Influenza Type B Ag (NEGATIVE) RSV (PCR) (NEGATIVE) SARS-CoV-2 (PCR) (NEGATIVE) 12/12/24 12/12/24 12/12/24 Range/Units 11:50 11:50 11:50 WBC (3.98-10.04) x10^3/uL RBC (3.93-5.22) x10^6/uL Hgb (11.2-15.7) g/dL Hct (34.1-44.9) % MCV (79.4-94.8) fL MCH (25.6-32.2) pg MCHC (32.2-35.5) g/dL RDW (11.7-14.4) % Plt Count (182-369) x10^3/uL MPV (9.4-12.3) fL Gran % (34.0-71.1) % Immature Gran % (Auto) (0.001-0.429) % Nucleat RBC Rel Count (0.00-0.2) % Eos # (Auto) (0.04-0.36) x10^3/uL Immature Gran # (Auto) (0.001-0.031) x10^3u/L Absolute Lymphs (auto) (1.18-3.74) x10^3/uL Absolute Monos (auto) (0.24-0.86) x10^3/uL Absolute Nucleated RBC (0.00-0.012) x10^3u/L Lymphocytes % (19.3-51.7) % Monocytes % (4.7-12.5) % Eosinophils % (0.7-5.8) % Basophils % (0.1-1.2) % Absolute Granulocytes (1.56-6.13) x10^3/uL Basophils # (0.01-0.08) x10^3/uL PT 10.9 (9.4-12.5) SECONDS INR 1.00 (0.8-3.0) Sodium (135-145) mmol/L Potassium (3.5-5.1) mmol/L Chloride (98-107) mmol/L Carbon Dioxide (22-30) mmol/L Anion Gap (5-15) MEQ/L BUN (7-17) mg/dL Creatinine (0.52-1.04) mg/dL Estimated GFR ML/MIN Glucose (74-106) mg/dL Lactic Acid (0.4-2.0) Calcium (8.4-10.2) mg/dL Magnesium (1.6-2.3) mg/dL Total Bilirubin (0.2-1.3) mg/dL AST (14-36) U/L ALT (0-35) U/L Alkaline Phosphatase (38-126) U/L Troponin I < 0.012 (0.000-0.033) ng/mL NT-Pro-B Natriuret Pep 167 (<300) pg/mL Serum Total Protein (6.3-8.2) g/dL Albumin (3.5-5.0) g/dL Influenza Type A Ag (NEGATIVE) Influenza Type B Ag (NEGATIVE) RSV (PCR) (NEGATIVE) SARS-CoV-2 (PCR) (NEGATIVE) 12/12/24 12/12/24 Range/Units 12:45 16:05 WBC (3.98-10.04) x10^3/uL RBC (3.93-5.22) x10^6/uL Hgb (11.2-15.7) g/dL Hct (34.1-44.9) % MCV (79.4-94.8) fL MCH (25.6-32.2) pg MCHC (32.2-35.5) g/dL RDW (11.7-14.4) % Plt Count (182-369) x10^3/uL MPV (9.4-12.3) fL Gran % (34.0-71.1) % Immature Gran % (Auto) (0.001-0.429) % Nucleat RBC Rel Count (0.00-0.2) % Eos # (Auto) (0.04-0.36) x10^3/uL Immature Gran # (Auto) (0.001-0.031) x10^3u/L Absolute Lymphs (auto) (1.18-3.74) x10^3/uL Absolute Monos (auto) (0.24-0.86) x10^3/uL Absolute Nucleated RBC (0.00-0.012) x10^3u/L Lymphocytes % (19.3-51.7) % Monocytes % (4.7-12.5) % Eosinophils % (0.7-5.8) % Basophils % (0.1-1.2) % Absolute Granulocytes (1.56-6.13) x10^3/uL Basophils # (0.01-0.08) x10^3/uL PT (9.4-12.5) SECONDS INR (0.8-3.0) Sodium (135-145) mmol/L Potassium (3.5-5.1) mmol/L Chloride (98-107) mmol/L Carbon Dioxide (22-30) mmol/L Anion Gap (5-15) MEQ/L BUN (7-17) mg/dL Creatinine (0.52-1.04) mg/dL Estimated GFR ML/MIN Glucose (74-106) mg/dL Lactic Acid (0.4-2.0) Calcium (8.4-10.2) mg/dL Magnesium (1.6-2.3) mg/dL Total Bilirubin (0.2-1.3) mg/dL AST (14-36) U/L ALT (0-35) U/L Alkaline Phosphatase (38-126) U/L Troponin I < 0.012 (0.000-0.033) ng/mL NT-Pro-B Natriuret Pep (<300) pg/mL Serum Total Protein (6.3-8.2) g/dL Albumin (3.5-5.0) g/dL Influenza Type A Ag NEGATIVE (NEGATIVE) Influenza Type B Ag NEGATIVE (NEGATIVE) RSV (PCR) NEGATIVE (NEGATIVE) SARS-CoV-2 (PCR) NEGATIVE (NEGATIVE) - Radiology Impressions Radiology Exams & Impressions: Radiology Procedures Category Date Time Status CHEST 1 VIEW (PORTABLE) Stat Exams 12/12/24 11:40 Completed - Other Procedures and Tests Respiratory Therapy 12/12/24 11:39 Respiratory Therapy Assessment DAILY 12/12/24 16:44 EKG REPEAT IN AM 12/12/24 16:58 Oxygen Nasal Cannula 3 lpm Assessment/Plan (1) COPD exacerbation Current Visit: Yes Status: Acute Assessment & Plan: - Ceftriaxone IV - Solumedrol 40 MG IV BID - Duonebs, Pulmicort - Morphine 2mg IV stat - On baseline 3lNC 98% - CXR: Portable chest again hyperinflated with new mild left base discoid atelectasis Stable CT proven right base calcified granuloma and small hiatal hernia. Remaining heart and lungs unremarkable. No acute findings. - CBC, CMP reviewed - BC x2 pending - Flu/COVID/RSV negative Code(s): J44.1 - CHRONIC OBSTRUCTIVE PULMONARY DISEASE W (ACUTE) EXACERBATION (2) GERD (gastroesophageal reflux disease) Current Visit: No Status: Chronic Assessment & Plan: - Continue Protonix Code(s): K21.9 - GASTRO-ESOPHAGEAL REFLUX DISEASE WITHOUT ESOPHAGITIS (3) HLD (hyperlipidemia) Current Visit: No Status: Chronic Assessment & Plan: - Continue statin Code(s): E78.5 - HYPERLIPIDEMIA, UNSPECIFIED (4) Type 2 diabetes mellitus Current Visit: No Status: Chronic Qualifiers: Diabetes mellitus snf insulin use: without snf use Diabetes mellitus complication status: without complication Qualified Code(s): E11.9 - Type 2 diabetes mellitus without complications Assessment & Plan: - Hold oral meds - Start S/S insulin - Accuchecks AC/HS - A1C 7.94- 11/03/24- controlled - Carb consistent diet (5) Anxiety Current Visit: No Status: Acute Assessment & Plan: - Hydroxyzine PO PRN Code(s): F41.9 - ANXIETY DISORDER, UNSPECIFIED (6) BMI 32.0-32.9,adult Current Visit: Yes Status: Chronic Assessment & Plan: - Advised diet and exercise control Code(s): Z68.32 - BODY MASS INDEX [BMI] 32.0-32.9, ADULT (7) HTN (hypertension) Current Visit: Yes Status: Chronic Assessment & Plan: - Bp elevated- trend - Restart meds VTE: Eliquis PPI: Protonix Next of KIN: Daughter D/C plan: 1-2 days Code status: Full Plan of care time > 40 minutes Code(s): I10 - ESSENTIAL (PRIMARY) HYPERTENSION
[2024-12-12] MEDS: MORPHINE SULFATE 2 MG INJ IM ONE (17:31)
[2024-12-12] MEDS ORDERED: Miralax Powder 17GM PACKET PO PRN (17:32)
[2024-12-12] MEDS: MORPHINE SULFATE 2 MG INJ IV ONE (17:36)
[2024-12-12] MEDS ORDERED: IBANDRONATE SODIUM 150 MG PO SCH (17:45)
[2024-12-12] MEDS: HUMALOG SQ PRN ×2 (17:51→23:51)
[2024-12-12] MEDS: PULMICORT 0.5 MG/2 ML RESPULES IH SCH (19:03)
[2024-12-12] MEDS: DUONEB 0.5-3 MG/3 ml Neb IH SCH (19:04)
[2024-12-12] MEDS ORDERED: solu-MEDROL 80 MG, Sterile H2O 10 ml 2 ML IV SCH (22:00)
[2024-12-12] MEDS ORDERED: ELIQUIS 2.5 MG TABLET ONE (22:31)
[2024-12-12 22:34] LABS: Calcium 9.1 mg/dL (8.4-10.2); Carbon Dioxide 22.0 mmol/L (22-30); Creatinine 1 0.92 mg/dL (0.52-1.04); EST GLOMERULAR FILTRATION RATE 61.8 ML/MIN; Potassium 4.5 mmol/L (3.5-5.1); SGOT/AST 27.0 U/L (14-36); SGPT/ALT 23.0 U/L (0-35); Total Protein 6.8 g/dL (6.3-8.2)
[2024-12-12] MEDS: solu-MEDROL 40 MG, Sterile H2O 10 ml 1 ML IV SCH (22:36)
[2024-12-12] MEDS: HUMULIN R SQ ONE (22:38)
[2024-12-12 22:47] LABS: Glucose 623.0 mg/dL (74-106)
[2024-12-12] MEDS: ELIQUIS 2.5 MG TABLET PO SCH (23:03)
--- NOTE | 2024-12-12 23:33 | PCM.NOTE ---
Date and Time: 12/12/242330 Subjective Assessment: Patient with blood glucose in 600s. CMP was checked and not consistent with DKA. Patient to be hydrated aggressively with NS, given regular insulin 10 units, long acting insulin 10 units and started on high intensity sliding scale. Patient is asymptomatic at this time. Will continue to monitor blood glucose. Objective Data Vital Signs: Vital Signs - 24 hr Temp Pulse Resp BP BP Pulse Ox 12/12/24 20:00 97.8 F 104 H 20 131/55 94 L 12/12/24 19:07 120 H 20 96 12/12/24 17:10 97.4 F 115 H 23 193/84 97 12/12/24 16:59 115 H 24 97 12/12/24 16:58 97.4 F 111 H 23 193/84 97 12/12/24 16:01 99 H 26 H 121/76 97 12/12/24 15:31 97 H 24 178/98 97 12/12/24 15:24 98 12/12/24 15:00 92 H 20 117/60 98 12/12/24 14:30 91 H 19 140/89 12/12/24 14:00 94 H 18 111/71 97 12/12/24 13:31 90 21 128/80 96 12/12/24 13:00 91 H 21 103/72 95 12/12/24 12:30 92 H 20 114/77 96 12/12/24 12:00 93 H 24 125/73 98 12/12/24 11:41 96 H 22 98 12/12/24 11:40 95 12/12/24 11:30 96 H 17 119/73 98 12/12/24 11:09 98.2 F 104 H 24 142/79 96 12/12/24 11:07 97 H 23 142/79 97 Pain Assessment - Last Documented Pain Intensity 0 Intake and Output: Intake & Output 12/10/24 12/11/24 12/12/24 12/13/24 06:59 06:59 06:59 06:59 Intake Total 240 Output Total 250 Balance -10 Weight 82.7 kg Lab Results: Lab Results-Last 24 Hours 12/12/24 12/12/24 12/12/24 Range/Units 11:49 11:49 11:50 WBC 5.0 (3.98-10.04) x10^3/uL RBC 4.25 (3.93-5.22) x10^6/uL Hgb 12.0 (11.2-15.7) g/dL Hct 37.4 (34.1-44.9) % MCV 88.0 (79.4-94.8) fL MCH 28.2 (25.6-32.2) pg MCHC 32.1 L (32.2-35.5) g/dL RDW 13.6 (11.7-14.4) % Plt Count 287 (182-369) x10^3/uL MPV 10.1 (9.4-12.3) fL Gran % 64.8 (34.0-71.1) % Immature Gran % (Auto) 2.4 H (0.001-0.429) % Nucleat RBC Rel Count 0.0 (0.00-0.2) % Eos # (Auto) 0.07 (0.04-0.36) x10^3/uL Immature Gran # (Auto) 0.12 H (0.001-0.031) x10^3u/L Absolute Lymphs (auto) 0.86 L (1.18-3.74) x10^3/uL Absolute Monos (auto) 0.67 (0.24-0.86) x10^3/uL Absolute Nucleated RBC 0.00 (0.00-0.012) x10^3u/L Lymphocytes % 17.2 L (19.3-51.7) % Monocytes % 13.4 H (4.7-12.5) % Eosinophils % 1.4 (0.7-5.8) % Basophils % 0.8 (0.1-1.2) % Absolute Granulocytes 3.24 (1.56-6.13) x10^3/uL Basophils # 0.04 (0.01-0.08) x10^3/uL PT (9.4-12.5) SECONDS INR (0.8-3.0) Sodium (135-145) mmol/L Potassium (3.5-5.1) mmol/L Chloride (98-107) mmol/L Carbon Dioxide (22-30) mmol/L Anion Gap (5-15) MEQ/L BUN (7-17) mg/dL Creatinine (0.52-1.04) mg/dL Estimated GFR ML/MIN Glucose (74-106) mg/dL POC Glucometer (74 to 106) mg/dL Hemoglobin A1c 9.23 H (4.5-6.0) % Lactic Acid 1.7 (0.4-2.0) Calcium (8.4-10.2) mg/dL Magnesium (1.6-2.3) mg/dL Total Bilirubin (0.2-1.3) mg/dL AST (14-36) U/L ALT (0-35) U/L Alkaline Phosphatase (38-126) U/L Troponin I (0.000-0.033) ng/mL NT-Pro-B Natriuret Pep (<300) pg/mL Serum Total Protein (6.3-8.2) g/dL Albumin (3.5-5.0) g/dL Influenza Type A Ag (NEGATIVE) Influenza Type B Ag (NEGATIVE) RSV (PCR) (NEGATIVE) SARS-CoV-2 (PCR) (NEGATIVE) 12/12/24 12/12/24 12/12/24 Range/Units 11:50 11:50 11:50 WBC (3.98-10.04) x10^3/uL RBC (3.93-5.22) x10^6/uL Hgb (11.2-15.7) g/dL Hct (34.1-44.9) % MCV (79.4-94.8) fL MCH (25.6-32.2) pg MCHC (32.2-35.5) g/dL RDW (11.7-14.4) % Plt Count (182-369) x10^3/uL MPV (9.4-12.3) fL Gran % (34.0-71.1) % Immature Gran % (Auto) (0.001-0.429) % Nucleat RBC Rel Count (0.00-0.2) % Eos # (Auto) (0.04-0.36) x10^3/uL Immature Gran # (Auto) (0.001-0.031) x10^3u/L Absolute Lymphs (auto) (1.18-3.74) x10^3/uL Absolute Monos (auto) (0.24-0.86) x10^3/uL Absolute Nucleated RBC (0.00-0.012) x10^3u/L Lymphocytes % (19.3-51.7) % Monocytes % (4.7-12.5) % Eosinophils % (0.7-5.8) % Basophils % (0.1-1.2) % Absolute Granulocytes (1.56-6.13) x10^3/uL Basophils # (0.01-0.08) x10^3/uL PT 10.9 (9.4-12.5) SECONDS INR 1.00 (0.8-3.0) Sodium 135 (135-145) mmol/L Potassium 4.0 (3.5-5.1) mmol/L Chloride 99 (98-107) mmol/L Carbon Dioxide 28 (22-30) mmol/L Anion Gap 12.3 (5-15) MEQ/L BUN 12 (7-17) mg/dL Creatinine 0.72 (0.52-1.04) mg/dL Estimated GFR 82.9 ML/MIN Glucose 297 H (74-106) mg/dL POC Glucometer (74 to 106) mg/dL Hemoglobin A1c (4.5-6.0) % Lactic Acid (0.4-2.0) Calcium 9.2 (8.4-10.2) mg/dL Magnesium 1.8 (1.6-2.3) mg/dL Total Bilirubin 0.70 (0.2-1.3) mg/dL AST 25 (14-36) U/L ALT 18 (0-35) U/L Alkaline Phosphatase 105 (38-126) U/L Troponin I < 0.012 (0.000-0.033) ng/mL NT-Pro-B Natriuret Pep (<300) pg/mL Serum Total Protein 6.9 (6.3-8.2) g/dL Albumin 4.0 (3.5-5.0) g/dL Influenza Type A Ag (NEGATIVE) Influenza Type B Ag (NEGATIVE) RSV (PCR) (NEGATIVE) SARS-CoV-2 (PCR) (NEGATIVE) 12/12/24 12/12/24 12/12/24 Range/Units 11:50 12:45 16:05 WBC (3.98-10.04) x10^3/uL RBC (3.93-5.22) x10^6/uL Hgb (11.2-15.7) g/dL Hct (34.1-44.9) % MCV (79.4-94.8) fL MCH (25.6-32.2) pg MCHC (32.2-35.5) g/dL RDW (11.7-14.4) % Plt Count (182-369) x10^3/uL MPV (9.4-12.3) fL Gran % (34.0-71.1) % Immature Gran % (Auto) (0.001-0.429) % Nucleat RBC Rel Count (0.00-0.2) % Eos # (Auto) (0.04-0.36) x10^3/uL Immature Gran # (Auto) (0.001-0.031) x10^3u/L Absolute Lymphs (auto) (1.18-3.74) x10^3/uL Absolute Monos (auto) (0.24-0.86) x10^3/uL Absolute Nucleated RBC (0.00-0.012) x10^3u/L Lymphocytes % (19.3-51.7) % Monocytes % (4.7-12.5) % Eosinophils % (0.7-5.8) % Basophils % (0.1-1.2) % Absolute Granulocytes (1.56-6.13) x10^3/uL Basophils # (0.01-0.08) x10^3/uL PT (9.4-12.5) SECONDS INR (0.8-3.0) Sodium (135-145) mmol/L Potassium (3.5-5.1) mmol/L Chloride (98-107) mmol/L Carbon Dioxide (22-30) mmol/L Anion Gap (5-15) MEQ/L BUN (7-17) mg/dL Creatinine (0.52-1.04) mg/dL Estimated GFR ML/MIN Glucose (74-106) mg/dL POC Glucometer (74 to 106) mg/dL Hemoglobin A1c (4.5-6.0) % Lactic Acid (0.4-2.0) Calcium (8.4-10.2) mg/dL Magnesium (1.6-2.3) mg/dL Total Bilirubin (0.2-1.3) mg/dL AST (14-36) U/L ALT (0-35) U/L Alkaline Phosphatase (38-126) U/L Troponin I < 0.012 (0.000-0.033) ng/mL NT-Pro-B Natriuret Pep 167 (<300) pg/mL Serum Total Protein (6.3-8.2) g/dL Albumin (3.5-5.0) g/dL Influenza Type A Ag NEGATIVE (NEGATIVE) Influenza Type B Ag NEGATIVE (NEGATIVE) RSV (PCR) NEGATIVE (NEGATIVE) SARS-CoV-2 (PCR) NEGATIVE (NEGATIVE) 12/12/24 12/12/24 12/12/24 Range/Units 17:45 20:10 21:07 WBC (3.98-10.04) x10^3/uL RBC (3.93-5.22) x10^6/uL Hgb (11.2-15.7) g/dL Hct (34.1-44.9) % MCV (79.4-94.8) fL MCH (25.6-32.2) pg MCHC (32.2-35.5) g/dL RDW (11.7-14.4) % Plt Count (182-369) x10^3/uL MPV (9.4-12.3) fL Gran % (34.0-71.1) % Immature Gran % (Auto) (0.001-0.429) % Nucleat RBC Rel Count (0.00-0.2) % Eos # (Auto) (0.04-0.36) x10^3/uL Immature Gran # (Auto) (0.001-0.031) x10^3u/L Absolute Lymphs (auto) (1.18-3.74) x10^3/uL Absolute Monos (auto) (0.24-0.86) x10^3/uL Absolute Nucleated RBC (0.00-0.012) x10^3u/L Lymphocytes % (19.3-51.7) % Monocytes % (4.7-12.5) % Eosinophils % (0.7-5.8) % Basophils % (0.1-1.2) % Absolute Granulocytes (1.56-6.13) x10^3/uL Basophils # (0.01-0.08) x10^3/uL PT (9.4-12.5) SECONDS INR (0.8-3.0) Sodium (135-145) mmol/L Potassium (3.5-5.1) mmol/L Chloride (98-107) mmol/L Carbon Dioxide (22-30) mmol/L Anion Gap (5-15) MEQ/L BUN (7-17) mg/dL Creatinine (0.52-1.04) mg/dL Estimated GFR ML/MIN Glucose (74-106) mg/dL POC Glucometer 335 H 584 H* (74 to 106) mg/dL Hemoglobin A1c (4.5-6.0) % Lactic Acid (0.4-2.0) Calcium (8.4-10.2) mg/dL Magnesium (1.6-2.3) mg/dL Total Bilirubin (0.2-1.3) mg/dL AST (14-36) U/L ALT (0-35) U/L Alkaline Phosphatase (38-126) U/L Troponin I < 0.012 (0.000-0.033) ng/mL NT-Pro-B Natriuret Pep (<300) pg/mL Serum Total Protein (6.3-8.2) g/dL Albumin (3.5-5.0) g/dL Influenza Type A Ag (NEGATIVE) Influenza Type B Ag (NEGATIVE) RSV (PCR) (NEGATIVE) SARS-CoV-2 (PCR) (NEGATIVE) 12/12/24 12/12/24 12/12/24 Range/Units 21:17 21:30 21:30 WBC (3.98-10.04) x10^3/uL RBC (3.93-5.22) x10^6/uL Hgb (11.2-15.7) g/dL Hct (34.1-44.9) % MCV (79.4-94.8) fL MCH (25.6-32.2) pg MCHC (32.2-35.5) g/dL RDW (11.7-14.4) % Plt Count (182-369) x10^3/uL MPV (9.4-12.3) fL Gran % (34.0-71.1) % Immature Gran % (Auto) (0.001-0.429) % Nucleat RBC Rel Count (0.00-0.2) % Eos # (Auto) (0.04-0.36) x10^3/uL Immature Gran # (Auto) (0.001-0.031) x10^3u/L Absolute Lymphs (auto) (1.18-3.74) x10^3/uL Absolute Monos (auto) (0.24-0.86) x10^3/uL Absolute Nucleated RBC (0.00-0.012) x10^3u/L Lymphocytes % (19.3-51.7) % Monocytes % (4.7-12.5) % Eosinophils % (0.7-5.8) % Basophils % (0.1-1.2) % Absolute Granulocytes (1.56-6.13) x10^3/uL Basophils # (0.01-0.08) x10^3/uL PT (9.4-12.5) SECONDS INR (0.8-3.0) Sodium 131 L (135-145) mmol/L Potassium 4.5 (3.5-5.1) mmol/L Chloride 98 (98-107) mmol/L Carbon Dioxide 22 (22-30) mmol/L Anion Gap 15.9 H (5-15) MEQ/L BUN 19 H (7-17) mg/dL Creatinine 0.92 (0.52-1.04) mg/dL Estimated GFR 61.8 ML/MIN Glucose 614 H* 623 H* (74-106) mg/dL POC Glucometer 539 H* (74 to 106) mg/dL Hemoglobin A1c (4.5-6.0) % Lactic Acid (0.4-2.0) Calcium 9.1 (8.4-10.2) mg/dL Magnesium (1.6-2.3) mg/dL Total Bilirubin 0.40 (0.2-1.3) mg/dL AST 27 (14-36) U/L ALT 23 (0-35) U/L Alkaline Phosphatase 102 (38-126) U/L Troponin I (0.000-0.033) ng/mL NT-Pro-B Natriuret Pep (<300) pg/mL Serum Total Protein 6.8 (6.3-8.2) g/dL Albumin 4.0 (3.5-5.0) g/dL Influenza Type A Ag (NEGATIVE) Influenza Type B Ag (NEGATIVE) RSV (PCR) (NEGATIVE) SARS-CoV-2 (PCR) (NEGATIVE) Radiology Exams: Radiology Procedures Category Date Time Status CHEST 1 VIEW (PORTABLE) Stat Exams 12/12/24 11:40 Completed Medications: Medications Generic Name Dose Route Start Last Admin Trade Name Freq PRN Reason Stop Dose Admin Albuterol/Ipratropium 3 ml 12/12/24 19:00 12/12/24 19:04 Ipratropium/Albuterol Sulfate 3 Ml Ampul.Neb IH 01/11/25 18:59 3 ml Q6HRT JANNETH Administration Amlodipine Besylate 2.5 mg 12/13/24 10:00 Amlodipine Besylate 5 Mg Tablet PO 01/12/25 09:59 DAILY JANNETH Apixaban 5 mg 12/13/24 10:00 12/12/24 23:03 Apixaban 2.5 Mg Tablet PO 01/12/25 09:59 5 mg BID JANNETH Administration Azelastine HCl ml 12/12/24 22:00 Azelastine Hcl 30 Ml Bottle Nasal INTRANASAL 01/11/25 21:59 BID JANNETH Budesonide 0.5 mg 12/12/24 19:00 12/12/24 19:03 Budesonide 0.5 Mg/2 Ml Ampul.Neb. IH 01/11/25 18:59 0.5 mg BIDRT JANNETH Administration Methylprednisolone Sodium 0 mg 12/12/24 22:00 12/12/24 22:36 Succinate 40 mg/ Sterile Water IV 01/11/25 21:59 40 mg 1 ml Q12HT JANNETH Administration Cyanocobalamin 1,000 mcg 12/13/24 10:00 Cyanocobalamin 500 Mcg Tablet PO 01/12/25 09:59 DAILY JANNETH Hydroxyzine HCl 25 mg 12/12/24 17:32 Hydroxyzine Hcl 25 Mg Tablet PO 01/11/25 17:31 BID PRN PRN ANXIETY Ceftriaxone Sodium 1 gm in 100 mls @ 200 mls/hr 12/13/24 10:00 Rocephin 1 Gm / 100 Ml Nacl IV 01/12/25 09:59 Q24H10 JANNETH Sodium Chloride 1,000 mls @ 100 mls/hr 12/12/24 22:30 12/12/24 22:37 Sodium Chloride 0.9% 1000 Ml IV 01/11/25 22:29 100 mls/hr .Q10H JANNETH Administration Insulin Human Lispro 0 unit 12/12/24 17:24 12/12/24 17:51 Insulin Lispro 1 Unit SQ 01/11/25 17:23 9 unit UD PRN Administration HYPERGLYCEMIA Insulin Human Regular 10 unit 12/12/24 22:18 12/12/24 22:38 Insulin Regular, Human 1 Unit SQ 12/12/24 22:19 10 unit STAT ONE Administration Lisinopril 20 mg 12/13/24 10:00 Lisinopril 20 Mg Tablet PO 01/12/25 09:59 DAILY JANNETH Metoprolol Succinate 25 mg 12/13/24 10:00 Metoprolol Succinate 25 Mg Xl Tab PO 01/12/25 09:59 DAILY JANNETH Montelukast Sodium 10 mg 12/13/24 10:00 Montelukast Sodium 10 Mg Tablet PO 01/12/25 09:59 DAILY JANNETH Non-Formulary Medication 150 mg 12/12/24 17:45 Ibandronate Sodium [Ibandronate Sodium] PO 01/11/25 17:44 UD JANNETH Non-Formulary Medication 20 mg 12/13/24 10:00 Lovastatin [Lovastatin] PO 01/12/25 09:59 DAILY JANNETH Non-Formulary Medication 40 mg 12/13/24 10:00 Omeprazole [Omeprazole] PO 01/12/25 09:59 DAILY JANNETH Non-Formulary Medication 1 blist 12/13/24 10:00 Fluticasone/Umeclidin/Vilanter [Trelegy Ellipta 200-62.5-25] IH 01/12/25 09:59 DAILY JANNETH Non-Formulary Medication 100 mcg 12/13/24 10:00 Cholecalciferol (Vitamin D3) [Vitamin D3] PO 01/12/25 09:59 DAILY JANNETH Polyethylene Glycol 17 gm 12/12/24 17:32 Polyethylene Glycol 3350 17 Gm Packet PO 01/11/25 17:31 QDP PRN CONSTIPATION Sodium Chloride 3 ml 12/12/24 19:00 Sodium Cl For Inhalation 3 Ml Ud Nebule IH 01/11/25 18:59 BIDRT JANNETH Discontinued Medications Generic Name Dose Route Start Last Admin Trade Name Freq PRN Reason Stop Dose Admin Albuterol/Ipratropium Confirm 12/12/24 11:36 Ipratropium/Albuterol Sulfate 3 Ml Ampul.Neb Administered 12/12/24 11:37 Dose 3 ml IH .STK-MED ONE Albuterol/Ipratropium 3 ml 12/12/24 11:39 12/12/24 11:40 Ipratropium/Albuterol Sulfate 3 Ml Ampul.Neb IH 12/12/24 11:40 3 ml STAT ONE Administration Apixaban Confirm 12/12/24 22:31 Apixaban 2.5 Mg Tablet Administered 12/12/24 22:32 Dose 5 mg .ROUTE .STK-MED ONE Methylprednisolone Sodium 0 mg 12/12/24 11:40 12/12/24 11:46 Succinate 125 mg/ Sterile IV 12/12/24 11:41 125 mg Water 2 ml STAT ONE Administration Methylprednisolone Sodium 0 mg 12/12/24 22:00 Succinate 80 mg/ Sterile Water IV 01/11/25 21:59 2 ml Q8HT JANNETH Ceftriaxone Sodium 1 gm in 100 mls @ 200 mls/hr 12/12/24 15:19 12/12/24 15:59 Rocephin 1 Gm / 100 Ml Nacl IV 12/12/24 15:48 Infused STAT ONE Infusion Ceftriaxone Sodium Confirm 12/12/24 15:25 Rocephin 1 Gm / 100 Ml Nacl Administered 12/12/24 15:26 Dose 1 gm in 100 mls @ ud IV .STK-MED ONE Insulin Human Regular 0 unit 12/12/24 16:44 Insulin Regular, Human 1 Unit SQ 01/11/25 16:43 UD PRN HYPERGLYCEMIA Methylprednisolone Sodium Succinate Confirm 12/12/24 11:45 Methylprednis Sod Succ 125 Mg/2 Ml Vial Administered 12/12/24 11:46 Dose 125 mg .ROUTE .STK-MED ONE Morphine Sulfate 2 mg 12/12/24 17:22 12/12/24 17:31 Morphine Sulfate 2 Mg/Ml Inj IM 12/12/24 17:23 Not Given STAT ONE Morphine Sulfate 2 mg 12/12/24 17:25 12/12/24 17:36 Morphine Sulfate 2 Mg/Ml Inj IV 12/12/24 17:26 2 mg STAT ONE Administration Non-Formulary Medication 5 mg 12/12/24 22:00 Apixaban [Eliquis] PO 01/11/25 21:59 BID JANNETH Sterile Water Confirm 12/12/24 11:45 Water For Injection,Sterile 10 Ml Vial Administered 12/12/24 11:46 Dose [address] [facility] Telemedicine Encounter - Telemedicine Encounter Telemedicine Encounter: "The entirety of this encounter was performed via Telemedicine" This visit was performed using real-time audio and video connection between my location and thepatients locationwith the assistance of a surrogateat the patients location. Written or verbal consent was obtained from the patient/guardian to perform this [facility] technology. Any patient questions regarding the telemedicine interaction were answered.
[2024-12-12] MEDS ORDERED: Lantus Insulin ONE (23:49)
[2024-12-12] MEDS: Lantus Insulin SQ SCH (23:50)
[2024-12-13 05:59] LABS: BASOPHIL % 0.2 % (0.1-1.2); Basophil (Absolute #) 0.01 x10^3/uL (0.01-0.08); Eosinophil (Absolute #) 0 x10^3/uL (0.04-0.36); Hematocrit 34.2 % (34.1-44.9); Hemoglobin 10.9 g/dL (11.2-15.7); IMMATURE GRAN # 0.08 x10^3u/L (0.001-0.031); IMMATURE GRAN % 1.4 % (0.001-0.429); Lymphocyte (Absolute #) 0.52 x10^3/uL (1.18-3.74); Mean Corpuscular Hemoglobin 28.2 pg (25.6-32.2); Mean Corpuscular Hgb Concent. 31.9 g/dL (32.2-35.5); Monocyte (Absolute #) 0.50 x10^3/uL (0.24-0.86); NUCLEATED RBC # 0.00 x10^3u/L (0.00-0.012); NUCLEATED RBC % 0.0 % (0.00-0.2); Platelet Count 281 x10^3/uL (182-369); Red Blood Count 3.86 x10^6/uL (3.93-5.22); White Blood Count 5.6 x10^3/uL (3.98-10.04)
[2024-12-13 06:19] LABS: Calcium 9.0 mg/dL (8.4-10.2); Carbon Dioxide 24.0 mmol/L (22-30); Creatinine 1 0.73 mg/dL (0.52-1.04); EST GLOMERULAR FILTRATION RATE 81.6 ML/MIN; Glucose 182.0 mg/dL (74-106); NT PRO BNPII 224.0 pg/mL (<300); Potassium 4.1 mmol/L (3.5-5.1); SGOT/AST 26.0 U/L (14-36); SGPT/ALT 22.0 U/L (0-35); Total Protein 6.6 g/dL (6.3-8.2)
[2024-12-13 06:33] LABS: Slide Review 1 YES
[2024-12-13] MEDS ORDERED: MEDICATION INTERVENTION MC SCH (07:45)
[2024-12-13] MEDS: NON-FORMULARY ITEM (Apixaban [Eliquis] 5 MG Tab.Ds.Pk) PO SCH (07:47)
[2024-12-13] MEDS: ASTELIN NASAL INTRANASAL SCH (07:47)
[2024-12-13] MEDS: Protonix 40MG Tablet PO SCH (09:12)
[2024-12-13] MEDS: Vitamin B-12 500 MCG PO SCH (09:12)
[2024-12-13] MEDS: Singulair 10 MG PO SCH (09:12)
[2024-12-13] MEDS: Toprol-Xl 25MG Tablets PO SCH (09:12)
[2024-12-13] MEDS: Zocor 10MG PO SCH (09:13)
[2024-12-13] MEDS: VITAMIN D PO SCH (09:13)
[2024-12-13] MEDS: NORVASC 5 MG PO SCH (09:13)
[2024-12-13] MEDS: ROCEPHIN 1 GM / 100 ML NaCl 1 GM/100 ML IVPB IV SCH (09:15)
[2024-12-13] MEDS: Zestril 20 MG PO SCH (09:19)
[2024-12-13] MEDS: ATARAX 25 MG PO PRN (09:22)
[2024-12-13] MEDS ORDERED: NON-FORMULARY ITEM (Fluticasone/Umeclidin/Vilanter [Trelegy Ellipta 200-62.5-25] 1 EACH Bl IH SCH (10:00)
--- NOTE | 2024-12-13 11:01 | PCM.NOTE ---
Date and Time: 12/13/24 1055 Subjective Assessment: 12/12/24 is a 84-year-old female with a past medical history of COPD on 3 L oxygen, hypertension, hyperlipidemia, type II diabetes mellitus, GERD, diverticulosis, and osteoporosis presented to the emergency department with worsening shortness of breath that began approximately three days ago and had progressively worsened over the past two days. She has a history of frequent ED visits for similar symptoms, with her most recent admission from 11/03 to 11/06 for COPD exacerbation and hypertension. She reported that her shortness of breath is worse with exertion and noted difficulty lying flat the night prior to admission. On her baseline 3 L nasal cannula, her oxygen saturation remained 9798%. Laboratory results were overall non-concerning, chest X-ray was clear, and flu, COVID, and RSV testing were negative. In the ED, she received Duonebs, ceftriaxone, and steroids without reported improvement. Her daughter, who accompanied her, expressed concern that the patients symptoms may be anxiety- related, particularly since the daughter has been out of town and unable to attend to her. On exam, the patient was noted to have pursed-lip breathing and diminished lung sounds. She denied chest pain, abdominal pain, nausea, vomiting, or diarrhea, and was unable to identify a clear cause for her symptoms. 12/13/24 The patient is resting in bed with continued shortness of breath, currently stable on her baseline oxygen at 3L nasal cannula with saturations at 99%. Laboratory studies were overall unremarkable except for an elevated hemoglobin A1C of 9.23. She experienced hyperglycemia overnight, for which additional insulin was administered, her sliding scale was increased to high dose, and intravenous fluids were provided per the overnight provider. Her glucose is stable this morning. Education was given regarding glucose control; however, frequent hospitalizations and steroid use have made management challenging for her. The patient expressed a desire to discharge tomorrow if possible and currently denies any further concerns. - Review of Systems Constitutional: No Fever, No Chills Eyes: No Symptoms Ears, Nose, & Throat: No Symptoms Respiratory: Cough, Short Of Breath, Wheezing Cardiac: No Chest Pain, No Edema, No Syncope Abdominal/Gastrointestinal: No Abdominal Pain, No Nausea, No Vomiting, No Diarrhea Genitourinary Symptoms: No Dysuria Musculoskeletal: No Back Pain, No Neck Pain Skin: No Rash Neurological: No Dizziness, No Focal Weakness, No Sensory Changes Psychological: No Symptoms Endocrine: No Symptoms Hematologic/Lymphatic: No Symptoms Immunological/Allergic: No Symptoms Objective Exam General Appearance: no apparent distress, alert, obese Neurologic Exam: alert, oriented x 3, cooperative, normal mood/affect, nml cerebellar function, sensation nml, No motor deficits Skin Exam: normal color, warm, dry Eye Exam: PERRL, EOMI, eyes nml inspection Ears, Nose, Throat Exam: normal ENT inspection, pharynx normal, moist mucous membranes Neck Exam: normal inspection, non-tender, supple, full range of motion Respiratory Exam: diminished breath sounds, crackles/rales, wheezing, No respiratory distress Cardiovascular Exam: regular rate/rhythm, normal heart sounds Gastrointestinal/Abdomen Exam: soft, No tenderness, No mass Extremity Exam: normal inspection, normal range of motion Back Exam: normal inspection, normal range of motion, No CVA tenderness, No vertebral tenderness Pelvic Exam: deferred Rectal Exam: deferred Objective Data Vital Signs: Vital Signs - 24 hr Temp Pulse Resp BP BP Pulse Ox 12/13/24 07:49 84 18 98 12/13/24 07:26 97.7 F 101 H 18 149/89 99 12/13/24 03:55 97.6 F 95 H 18 144/73 97 12/13/24 00:46 99 H 22 96 12/13/24 00:00 103 H 20 125/69 94 L 12/12/24 20:00 97.8 F 104 H 20 131/55 94 L 12/12/24 19:07 120 H 20 96 12/12/24 17:10 97.4 F 115 H 23 193/84 97 12/12/24 16:59 115 H 24 97 12/12/24 16:58 97.4 F 111 H 23 193/84 97 12/12/24 16:01 99 H 26 H 121/76 97 12/12/24 15:31 97 H 24 178/98 97 12/12/24 15:24 98 12/12/24 15:00 92 H 20 117/60 98 12/12/24 14:30 91 H 19 140/89 12/12/24 14:00 94 H 18 111/71 97 12/12/24 13:31 90 21 128/80 96 12/12/24 13:00 91 H 21 103/72 95 12/12/24 12:30 92 H 20 114/77 96 12/12/24 12:00 93 H 24 125/73 98 12/12/24 11:41 96 H 22 98 12/12/24 11:40 95 12/12/24 11:30 96 H 17 119/73 98 12/12/24 11:09 98.2 F 104 H 24 142/79 96 12/12/24 11:07 97 H 23 142/79 97 Pain Assessment - Last Documented Pain Intensity 0 Intake and Output: Intake & Output 12/10/24 12/11/24 12/12/24 12/13/24 11:59 11:59 11:59 11:59 Intake Total 2924 Output Total 850 Balance 2074 Weight 83.6 kg 82.7 kg Lab Results: Lab Results-Last 24 Hours 12/12/24 12/12/24 12/12/24 Range/Units 11:49 11:49 11:50 WBC 5.0 (3.98-10.04) x10^3/uL RBC 4.25 (3.93-5.22) x10^6/uL Hgb 12.0 (11.2-15.7) g/dL Hct 37.4 (34.1-44.9) % MCV 88.0 (79.4-94.8) fL MCH 28.2 (25.6-32.2) pg MCHC 32.1 L (32.2-35.5) g/dL RDW 13.6 (11.7-14.4) % Plt Count 287 (182-369) x10^3/uL MPV 10.1 (9.4-12.3) fL Gran % 64.8 (34.0-71.1) % Immature Gran % (Auto) 2.4 H (0.001-0.429) % Nucleat RBC Rel Count 0.0 (0.00-0.2) % Eos # (Auto) 0.07 (0.04-0.36) x10^3/uL Immature Gran # (Auto) 0.12 H (0.001-0.031) x10^3u/L Absolute Lymphs (auto) 0.86 L (1.18-3.74) x10^3/uL Absolute Monos (auto) 0.67 (0.24-0.86) x10^3/uL Absolute Nucleated RBC 0.00 (0.00-0.012) x10^3u/L Lymphocytes % 17.2 L (19.3-51.7) % Monocytes % 13.4 H (4.7-12.5) % Eosinophils % 1.4 (0.7-5.8) % Basophils % 0.8 (0.1-1.2) % Absolute Granulocytes 3.24 (1.56-6.13) x10^3/uL Basophils # 0.04 (0.01-0.08) x10^3/uL PT (9.4-12.5) SECONDS INR (0.8-3.0) Sodium (135-145) mmol/L Potassium (3.5-5.1) mmol/L Chloride (98-107) mmol/L Carbon Dioxide (22-30) mmol/L Anion Gap (5-15) MEQ/L BUN (7-17) mg/dL Creatinine (0.52-1.04) mg/dL Estimated GFR ML/MIN Glucose (74-106) mg/dL POC Glucometer (74 to 106) mg/dL Hemoglobin A1c 9.23 H (4.5-6.0) % Lactic Acid 1.7 (0.4-2.0) Calcium (8.4-10.2) mg/dL Magnesium (1.6-2.3) mg/dL Total Bilirubin (0.2-1.3) mg/dL AST (14-36) U/L ALT (0-35) U/L Alkaline Phosphatase (38-126) U/L Troponin I (0.000-0.033) ng/mL NT-Pro-B Natriuret Pep (<300) pg/mL Serum Total Protein (6.3-8.2) g/dL Albumin (3.5-5.0) g/dL Influenza Type A Ag (NEGATIVE) Influenza Type B Ag (NEGATIVE) RSV (PCR) (NEGATIVE) SARS-CoV-2 (PCR) (NEGATIVE) Slides for Path Review 12/12/24 12/12/24 12/12/24 Range/Units 11:50 11:50 11:50 WBC (3.98-10.04) x10^3/uL RBC (3.93-5.22) x10^6/uL Hgb (11.2-15.7) g/dL Hct (34.1-44.9) % MCV (79.4-94.8) fL MCH (25.6-32.2) pg MCHC (32.2-35.5) g/dL RDW (11.7-14.4) % Plt Count (182-369) x10^3/uL MPV (9.4-12.3) fL Gran % (34.0-71.1) % Immature Gran % (Auto) (0.001-0.429) % Nucleat RBC Rel Count (0.00-0.2) % Eos # (Auto) (0.04-0.36) x10^3/uL Immature Gran # (Auto) (0.001-0.031) x10^3u/L Absolute Lymphs (auto) (1.18-3.74) x10^3/uL Absolute Monos (auto) (0.24-0.86) x10^3/uL Absolute Nucleated RBC (0.00-0.012) x10^3u/L Lymphocytes % (19.3-51.7) % Monocytes % (4.7-12.5) % Eosinophils % (0.7-5.8) % Basophils % (0.1-1.2) % Absolute Granulocytes (1.56-6.13) x10^3/uL Basophils # (0.01-0.08) x10^3/uL PT 10.9 (9.4-12.5) SECONDS INR 1.00 (0.8-3.0) Sodium 135 (135-145) mmol/L Potassium 4.0 (3.5-5.1) mmol/L Chloride 99 (98-107) mmol/L Carbon Dioxide 28 (22-30) mmol/L Anion Gap 12.3 (5-15) MEQ/L BUN 12 (7-17) mg/dL Creatinine 0.72 (0.52-1.04) mg/dL Estimated GFR 82.9 ML/MIN Glucose 297 H (74-106) mg/dL POC Glucometer (74 to 106) mg/dL Hemoglobin A1c (4.5-6.0) % Lactic Acid (0.4-2.0) Calcium 9.2 (8.4-10.2) mg/dL Magnesium 1.8 (1.6-2.3) mg/dL Total Bilirubin 0.70 (0.2-1.3) mg/dL AST 25 (14-36) U/L ALT 18 (0-35) U/L Alkaline Phosphatase 105 (38-126) U/L Troponin I < 0.012 (0.000-0.033) ng/mL NT-Pro-B Natriuret Pep (<300) pg/mL Serum Total Protein 6.9 (6.3-8.2) g/dL Albumin 4.0 (3.5-5.0) g/dL Influenza Type A Ag (NEGATIVE) Influenza Type B Ag (NEGATIVE) RSV (PCR) (NEGATIVE) SARS-CoV-2 (PCR) (NEGATIVE) Slides for Path Review 12/12/24 12/12/24 12/12/24 Range/Units 11:50 12:45 16:05 WBC (3.98-10.04) x10^3/uL RBC (3.93-5.22) x10^6/uL Hgb (11.2-15.7) g/dL Hct (34.1-44.9) % MCV (79.4-94.8) fL MCH (25.6-32.2) pg MCHC (32.2-35.5) g/dL RDW (11.7-14.4) % Plt Count (182-369) x10^3/uL MPV (9.4-12.3) fL Gran % (34.0-71.1) % Immature Gran % (Auto) (0.001-0.429) % Nucleat RBC Rel Count (0.00-0.2) % Eos # (Auto) (0.04-0.36) x10^3/uL Immature Gran # (Auto) (0.001-0.031) x10^3u/L Absolute Lymphs (auto) (1.18-3.74) x10^3/uL Absolute Monos (auto) (0.24-0.86) x10^3/uL Absolute Nucleated RBC (0.00-0.012) x10^3u/L Lymphocytes % (19.3-51.7) % Monocytes % (4.7-12.5) % Eosinophils % (0.7-5.8) % Basophils % (0.1-1.2) % Absolute Granulocytes (1.56-6.13) x10^3/uL Basophils # (0.01-0.08) x10^3/uL PT (9.4-12.5) SECONDS INR (0.8-3.0) Sodium (135-145) mmol/L Potassium (3.5-5.1) mmol/L Chloride (98-107) mmol/L Carbon Dioxide (22-30) mmol/L Anion Gap (5-15) MEQ/L BUN (7-17) mg/dL Creatinine (0.52-1.04) mg/dL Estimated GFR ML/MIN Glucose (74-106) mg/dL POC Glucometer (74 to 106) mg/dL Hemoglobin A1c (4.5-6.0) % Lactic Acid (0.4-2.0) Calcium (8.4-10.2) mg/dL Magnesium (1.6-2.3) mg/dL Total Bilirubin (0.2-1.3) mg/dL AST (14-36) U/L ALT (0-35) U/L Alkaline Phosphatase (38-126) U/L Troponin I < 0.012 (0.000-0.033) ng/mL NT-Pro-B Natriuret Pep 167 (<300) pg/mL Serum Total Protein (6.3-8.2) g/dL Albumin (3.5-5.0) g/dL Influenza Type A Ag NEGATIVE (NEGATIVE) Influenza Type B Ag NEGATIVE (NEGATIVE) RSV (PCR) NEGATIVE (NEGATIVE) SARS-CoV-2 (PCR) NEGATIVE (NEGATIVE) Slides for Path Review 12/12/24 12/12/24 12/12/24 Range/Units 17:45 20:10 21:07 WBC (3.98-10.04) x10^3/uL RBC (3.93-5.22) x10^6/uL Hgb (11.2-15.7) g/dL Hct (34.1-44.9) % MCV (79.4-94.8) fL MCH (25.6-32.2) pg MCHC (32.2-35.5) g/dL RDW (11.7-14.4) % Plt Count (182-369) x10^3/uL MPV (9.4-12.3) fL Gran % (34.0-71.1) % Immature Gran % (Auto) (0.001-0.429) % Nucleat RBC Rel Count (0.00-0.2) % Eos # (Auto) (0.04-0.36) x10^3/uL Immature Gran # (Auto) (0.001-0.031) x10^3u/L Absolute Lymphs (auto) (1.18-3.74) x10^3/uL Absolute Monos (auto) (0.24-0.86) x10^3/uL Absolute Nucleated RBC (0.00-0.012) x10^3u/L Lymphocytes % (19.3-51.7) % Monocytes % (4.7-12.5) % Eosinophils % (0.7-5.8) % Basophils % (0.1-1.2) % Absolute Granulocytes (1.56-6.13) x10^3/uL Basophils # (0.01-0.08) x10^3/uL PT (9.4-12.5) SECONDS INR (0.8-3.0) Sodium (135-145) mmol/L Potassium (3.5-5.1) mmol/L Chloride (98-107) mmol/L Carbon Dioxide (22-30) mmol/L Anion Gap (5-15) MEQ/L BUN (7-17) mg/dL Creatinine (0.52-1.04) mg/dL Estimated GFR ML/MIN Glucose (74-106) mg/dL POC Glucometer 335 H 584 H* (74 to 106) mg/dL Hemoglobin A1c (4.5-6.0) % Lactic Acid (0.4-2.0) Calcium (8.4-10.2) mg/dL Magnesium (1.6-2.3) mg/dL Total Bilirubin (0.2-1.3) mg/dL AST (14-36) U/L ALT (0-35) U/L Alkaline Phosphatase (38-126) U/L Troponin I < 0.012 (0.000-0.033) ng/mL NT-Pro-B Natriuret Pep (<300) pg/mL Serum Total Protein (6.3-8.2) g/dL Albumin (3.5-5.0) g/dL Influenza Type A Ag (NEGATIVE) Influenza Type B Ag (NEGATIVE) RSV (PCR) (NEGATIVE) SARS-CoV-2 (PCR) (NEGATIVE) Slides for Path Review 12/12/24 12/12/24 12/12/24 Range/Units 21:17 21:30 21:30 WBC (3.98-10.04) x10^3/uL RBC (3.93-5.22) x10^6/uL Hgb (11.2-15.7) g/dL Hct (34.1-44.9) % MCV (79.4-94.8) fL MCH (25.6-32.2) pg MCHC (32.2-35.5) g/dL RDW (11.7-14.4) % Plt Count (182-369) x10^3/uL MPV (9.4-12.3) fL Gran % (34.0-71.1) % Immature Gran % (Auto) (0.001-0.429) % Nucleat RBC Rel Count (0.00-0.2) % Eos # (Auto) (0.04-0.36) x10^3/uL Immature Gran # (Auto) (0.001-0.031) x10^3u/L Absolute Lymphs (auto) (1.18-3.74) x10^3/uL Absolute Monos (auto) (0.24-0.86) x10^3/uL Absolute Nucleated RBC (0.00-0.012) x10^3u/L Lymphocytes % (19.3-51.7) % Monocytes % (4.7-12.5) % Eosinophils % (0.7-5.8) % Basophils % (0.1-1.2) % Absolute Granulocytes (1.56-6.13) x10^3/uL Basophils # (0.01-0.08) x10^3/uL PT (9.4-12.5) SECONDS INR (0.8-3.0) Sodium 131 L (135-145) mmol/L Potassium 4.5 (3.5-5.1) mmol/L Chloride 98 (98-107) mmol/L Carbon Dioxide 22 (22-30) mmol/L Anion Gap 15.9 H (5-15) MEQ/L BUN 19 H (7-17) mg/dL Creatinine 0.92 (0.52-1.04) mg/dL Estimated GFR 61.8 ML/MIN Glucose 614 H* 623 H* (74-106) mg/dL POC Glucometer 539 H* (74 to 106) mg/dL Hemoglobin A1c (4.5-6.0) % Lactic Acid (0.4-2.0) Calcium 9.1 (8.4-10.2) mg/dL Magnesium (1.6-2.3) mg/dL Total Bilirubin 0.40 (0.2-1.3) mg/dL AST 27 (14-36) U/L ALT 23 (0-35) U/L Alkaline Phosphatase 102 (38-126) U/L Troponin I (0.000-0.033) ng/mL NT-Pro-B Natriuret Pep (<300) pg/mL Serum Total Protein 6.8 (6.3-8.2) g/dL Albumin 4.0 (3.5-5.0) g/dL Influenza Type A Ag (NEGATIVE) Influenza Type B Ag (NEGATIVE) RSV (PCR) (NEGATIVE) SARS-CoV-2 (PCR) (NEGATIVE) Slides for Path Review 12/12/24 12/13/24 12/13/24 Range/Units 23:29 00:55 03:26 WBC (3.98-10.04) x10^3/uL RBC (3.93-5.22) x10^6/uL Hgb (11.2-15.7) g/dL Hct (34.1-44.9) % MCV (79.4-94.8) fL MCH (25.6-32.2) pg MCHC (32.2-35.5) g/dL RDW (11.7-14.4) % Plt Count (182-369) x10^3/uL MPV (9.4-12.3) fL Gran % (34.0-71.1) % Immature Gran % (Auto) (0.001-0.429) % Nucleat RBC Rel Count (0.00-0.2) % Eos # (Auto) (0.04-0.36) x10^3/uL Immature Gran # (Auto) (0.001-0.031) x10^3u/L Absolute Lymphs (auto) (1.18-3.74) x10^3/uL Absolute Monos (auto) (0.24-0.86) x10^3/uL Absolute Nucleated RBC (0.00-0.012) x10^3u/L Lymphocytes % (19.3-51.7) % Monocytes % (4.7-12.5) % Eosinophils % (0.7-5.8) % Basophils % (0.1-1.2) % Absolute Granulocytes (1.56-6.13) x10^3/uL Basophils # (0.01-0.08) x10^3/uL PT (9.4-12.5) SECONDS INR (0.8-3.0) Sodium (135-145) mmol/L Potassium (3.5-5.1) mmol/L Chloride (98-107) mmol/L Carbon Dioxide (22-30) mmol/L Anion Gap (5-15) MEQ/L BUN (7-17) mg/dL Creatinine (0.52-1.04) mg/dL Estimated GFR ML/MIN Glucose (74-106) mg/dL POC Glucometer 514 H* 400 H 232 H (74 to 106) mg/dL Hemoglobin A1c (4.5-6.0) % Lactic Acid (0.4-2.0) Calcium (8.4-10.2) mg/dL Magnesium (1.6-2.3) mg/dL Total Bilirubin (0.2-1.3) mg/dL AST (14-36) U/L ALT (0-35) U/L Alkaline Phosphatase (38-126) U/L Troponin I (0.000-0.033) ng/mL NT-Pro-B Natriuret Pep (<300) pg/mL Serum Total Protein (6.3-8.2) g/dL Albumin (3.5-5.0) g/dL Influenza Type A Ag (NEGATIVE) Influenza Type B Ag (NEGATIVE) RSV (PCR) (NEGATIVE) SARS-CoV-2 (PCR) (NEGATIVE) Slides for Path Review 12/13/24 12/13/24 12/13/24 Range/Units 05:56 05:56 07:11 WBC 5.6 (3.98-10.04) x10^3/uL RBC 3.86 L (3.93-5.22) x10^6/uL Hgb 10.9 L (11.2-15.7) g/dL Hct 34.2 (34.1-44.9) % MCV 88.6 (79.4-94.8) fL MCH 28.2 (25.6-32.2) pg MCHC 31.9 L (32.2-35.5) g/dL RDW 13.6 (11.7-14.4) % Plt Count 281 (182-369) x10^3/uL MPV 10.0 (9.4-12.3) fL Gran % 80.1 H (34.0-71.1) % Immature Gran % (Auto) 1.4 H (0.001-0.429) % Nucleat RBC Rel Count 0.0 (0.00-0.2) % Eos # (Auto) 0 L (0.04-0.36) x10^3/uL Immature Gran # (Auto) 0.08 H (0.001-0.031) x10^3u/L Absolute Lymphs (auto) 0.52 L (1.18-3.74) x10^3/uL Absolute Monos (auto) 0.50 (0.24-0.86) x10^3/uL Absolute Nucleated RBC 0.00 (0.00-0.012) x10^3u/L Lymphocytes % 9.3 L (19.3-51.7) % Monocytes % 9.0 (4.7-12.5) % Eosinophils % 0.0 L (0.7-5.8) % Basophils % 0.2 (0.1-1.2) % Absolute Granulocytes 4.46 (1.56-6.13) x10^3/uL Basophils # 0.01 (0.01-0.08) x10^3/uL PT (9.4-12.5) SECONDS INR (0.8-3.0) Sodium 138 D (135-145) mmol/L Potassium 4.1 (3.5-5.1) mmol/L Chloride 105 (98-107) mmol/L Carbon Dioxide 24 (22-30) mmol/L Anion Gap 12.7 (5-15) MEQ/L BUN 20 H (7-17) mg/dL Creatinine 0.73 (0.52-1.04) mg/dL Estimated GFR 81.6 ML/MIN Glucose 182 H (74-106) mg/dL POC Glucometer 172 H (74 to 106) mg/dL Hemoglobin A1c (4.5-6.0) % Lactic Acid (0.4-2.0) Calcium 9.0 (8.4-10.2) mg/dL Magnesium (1.6-2.3) mg/dL Total Bilirubin 0.20 (0.2-1.3) mg/dL AST 26 (14-36) U/L ALT 22 (0-35) U/L Alkaline Phosphatase 84 (38-126) U/L Troponin I (0.000-0.033) ng/mL NT-Pro-B Natriuret Pep 224 (<300) pg/mL Serum Total Protein 6.6 (6.3-8.2) g/dL Albumin 3.8 (3.5-5.0) g/dL Influenza Type A Ag (NEGATIVE) Influenza Type B Ag (NEGATIVE) RSV (PCR) (NEGATIVE) SARS-CoV-2 (PCR) (NEGATIVE) Slides for Path Review YES Radiology Exams: Radiology Procedures Category Date Time Status CHEST 1 VIEW (PORTABLE) Stat Exams 12/12/24 11:40 Completed Medications: Medications Generic Name Dose Route Start Last Admin Trade Name Freq PRN Reason Stop Dose Admin Albuterol/Ipratropium 3 ml 12/12/24 19:00 12/13/24 07:48 Ipratropium/Albuterol Sulfate 3 Ml Ampul.Neb IH 01/11/25 18:59 3 ml Q6HRT JANNETH Administration Amlodipine Besylate 2.5 mg 12/13/24 10:00 12/13/24 09:13 Amlodipine Besylate 5 Mg Tablet PO 01/12/25 09:59 2.5 mg DAILY JANNETH Administration Apixaban 5 mg 12/13/24 10:00 12/13/24 09:13 Apixaban 2.5 Mg Tablet PO 01/12/25 09:59 5 mg BID JANNETH Administration Azelastine HCl 0 ml 12/12/24 22:00 12/13/24 09:15 Azelastine Hcl 30 Ml Bottle Nasal INTRANASAL 01/11/25 21:59 30 ml BID JANNETH Administration Budesonide 0.5 mg 12/12/24 19:00 12/13/24 07:49 Budesonide 0.5 Mg/2 Ml Ampul.Neb. IH 01/11/25 18:59 0.5 mg BIDRT JANNETH Administration Cholecalciferol 4,000 unit 12/13/24 10:00 12/13/24 09:13 Cholecalciferol (Vitamin D3) 1000 Unit Tablet PO 01/12/25 09:59 4,000 unit DAILY JANNETH Administration Methylprednisolone Sodium 0 mg 12/12/24 22:00 12/13/24 09:14 Succinate 40 mg/ Sterile Water IV 01/11/25 21:59 40 mg 1 ml Q12HT JANNETH Administration Cyanocobalamin 1,000 mcg 12/13/24 10:00 12/13/24 09:12 Cyanocobalamin 500 Mcg Tablet PO 01/12/25 09:59 1,000 mcg DAILY JANNETH Administration Hydroxyzine HCl 25 mg 12/12/24 17:32 12/13/24 09:22 Hydroxyzine Hcl 25 Mg Tablet PO 01/11/25 17:31 25 mg BID PRN PRN Administration ANXIETY Ceftriaxone Sodium 1 gm in 100 mls @ 200 mls/hr 12/13/24 10:00 12/13/24 09:15 Rocephin 1 Gm / 100 Ml Nacl IV 01/12/25 09:59 200 mls/hr Q24H10 JANNETH Administration Insulin Glargine 10 unit 12/13/24 22:00 12/12/24 23:50 Insulin Glargine 1 Unit SQ 01/12/25 21:59 10 unit HS JANNETH Administration Insulin Human Lispro 0 unit 12/12/24 23:35 12/13/24 07:34 Insulin Lispro 1 Unit SQ 01/11/25 23:34 4 unit UD PRN Administration HYPERGLYCEMIA Lisinopril 20 mg 12/13/24 10:00 12/13/24 09:19 Lisinopril 20 Mg Tablet PO 01/12/25 09:59 20 mg DAILY JANNETH Administration Metoprolol Succinate 25 mg 12/13/24 10:00 12/13/24 09:12 Metoprolol Succinate 25 Mg Xl Tab PO 01/12/25 09:59 25 mg DAILY JANNETH Administration Miscellaneous Information 1 each 12/13/24 07:45 Medication Intervention 1 Each Each 01/12/25 07:44 .RT TO CHECK JANNETH Montelukast Sodium 10 mg 12/13/24 10:00 12/13/24 09:12 Montelukast Sodium 10 Mg Tablet PO 01/12/25 09:59 10 mg DAILY JANNETH Administration Pantoprazole Sodium 40 mg 12/13/24 10:00 12/13/24 09:15 Protonix (Pantoprazole) 40 Mg Tablet PO 01/12/25 09:59 40 mg DAILY JANNETH Administration Polyethylene Glycol 17 gm 12/12/24 17:32 Polyethylene Glycol 3350 17 Gm Packet PO 01/11/25 17:31 QDP PRN CONSTIPATION Simvastatin 10 mg 12/13/24 10:00 12/13/24 09:13 Simvastatin 10 Mg Tablet PO 01/12/25 09:59 10 mg DAILY JANNETH Administration Sodium Chloride 3 ml 12/12/24 19:00 Sodium Cl For Inhalation 3 Ml Ud Nebule IH 01/11/25 18:59 BIDRT JANNETH Discontinued Medications Generic Name Dose Route Start Last Admin Trade Name Freq PRN Reason Stop Dose Admin Albuterol/Ipratropium Confirm 12/12/24 11:36 Ipratropium/Albuterol Sulfate 3 Ml Ampul.Neb Administered 12/12/24 11:37 Dose 3 ml IH .STK-MED ONE Albuterol/Ipratropium 3 ml 12/12/24 11:39 12/12/24 11:40 Ipratropium/Albuterol Sulfate 3 Ml Ampul.Neb IH 12/12/24 11:40 3 ml STAT ONE Administration Apixaban Confirm 12/12/24 22:31 Apixaban 2.5 Mg Tablet Administered 12/12/24 22:32 Dose 5 mg .ROUTE .STK-MED ONE Methylprednisolone Sodium 0 mg 12/12/24 11:40 12/12/24 11:46 Succinate 125 mg/ Sterile IV 12/12/24 11:41 125 mg Water 2 ml STAT ONE Administration Methylprednisolone Sodium 0 mg 12/12/24 22:00 Succinate 80 mg/ Sterile Water IV 01/11/25 21:59 2 ml Q8HT JANNETH Ceftriaxone Sodium 1 gm in 100 mls @ 200 mls/hr 12/12/24 15:19 12/12/24 15:59 Rocephin 1 Gm / 100 Ml Nacl IV 12/12/24 15:48 Infused STAT ONE Infusion Ceftriaxone Sodium Confirm 12/12/24 15:25 Rocephin 1 Gm / 100 Ml Nacl Administered 12/12/24 15:26 Dose 1 gm in 100 mls @ ud IV .STK-MED ONE Sodium Chloride 1,000 mls @ 100 mls/hr 12/12/24 22:30 12/12/24 22:37 Sodium Chloride 0.9% 1000 Ml IV 01/11/25 22:29 100 mls/hr .Q10H JANNETH Administration Insulin Glargine Confirm 12/12/24 23:49 Insulin Glargine 1 Unit Administered 12/12/24 23:50 Dose 10 unit .ROUTE .STK-MED ONE Insulin Human Lispro 0 unit 12/12/24 17:24 12/12/24 17:51 Insulin Lispro 1 Unit SQ 01/11/25 17:23 9 unit UD PRN Administration HYPERGLYCEMIA Insulin Human Regular 0 unit 12/12/24 16:44 Insulin Regular, Human 1 Unit SQ 01/11/25 16:43 UD PRN HYPERGLYCEMIA Insulin Human Regular 10 unit 12/12/24 22:18 12/12/24 22:38 Insulin Regular, Human 1 Unit SQ 12/12/24 22:19 10 unit STAT ONE Administration Methylprednisolone Sodium Succinate Confirm 12/12/24 11:45 Methylprednis Sod Succ 125 Mg/2 Ml Vial Administered 12/12/24 11:46 Dose 125 mg .ROUTE .STK-MED ONE Morphine Sulfate 2 mg 12/12/24 17:22 12/12/24 17:31 Morphine Sulfate 2 Mg/Ml Inj IM 12/12/24 17:23 Not Given STAT ONE Morphine Sulfate 2 mg 12/12/24 17:25 12/12/24 17:36 Morphine Sulfate 2 Mg/Ml Inj IV 12/12/24 17:26 2 mg STAT ONE Administration Non-Formulary Medication 5 mg 12/12/24 22:00 12/13/24 07:47 Apixaban [Eliquis] PO 01/11/25 21:59 Not Given BID JANNETH Sterile Water Confirm 12/12/24 11:45 Water For Injection,Sterile 10 Ml Vial Administered 12/12/24 11:46 Dose 10 ml IJ .STK-MED ONE Assessment/Plan (1) COPD exacerbation Current Visit: Yes Status: Acute Code(s): J44.1 - CHRONIC OBSTRUCTIVE PULMONARY DISEASE W (ACUTE) EXACERBATION (2) GERD (gastroesophageal reflux disease) Current Visit: No Status: Chronic Code(s): K21.9 - GASTRO-ESOPHAGEAL REFLUX DISEASE WITHOUT ESOPHAGITIS (3) HLD (hyperlipidemia) Current Visit: No Status: Chronic Code(s): E78.5 - HYPERLIPIDEMIA, UNSPECIFIED (4) Type 2 diabetes mellitus Current Visit: No Status: Chronic Qualifiers: Diabetes mellitus mcc insulin use: without mcc use Diabetes mellitus complication status: without complication Qualified Code(s): E11.9 - Type 2 diabetes mellitus without complications (5) Anxiety Current Visit: No Status: Acute Code(s): F41.9 - ANXIETY DISORDER, UNSPECIFIED (6) BMI 32.0-32.9,adult Current Visit: Yes Status: Chronic Code(s): Z68.32 - BODY MASS INDEX [BMI] 32.0-32.9, ADULT (7) HTN (hypertension) Current Visit: Yes Status: Chronic Assessment & Plan: (1) COPD exacerbation Current Visit: Yes Status: Acute Assessment & Plan: - Ceftriaxone IV - Solumedrol 40 MG IV BID - Duonebs, Pulmicort - Morphine 2mg IV stat - On baseline 3lNC 98% - CXR: Portable chest again hyperinflated with new mild left base discoid atelectasis Stable CT proven right base calcified granuloma and small hiatal hernia. Remaining heart and lungs unremarkable. No acute findings. - CBC, CMP reviewed - BC x2 pending - Flu/COVID/RSV negative 12/13 - Continued SOB- on BL O2 3LNC at 99% - CBC, CMP reviewed and non-concerning Code(s): J44.1 - CHRONIC OBSTRUCTIVE PULMONARY DISEASE W (ACUTE) EXACERBATION (2) GERD (gastroesophageal reflux disease) Current Visit: No Status: Chronic Assessment & Plan: - Continue Protonix Code(s): K21.9 - GASTRO-ESOPHAGEAL REFLUX DISEASE WITHOUT ESOPHAGITIS (3) HLD (hyperlipidemia) Current Visit: No Status: Chronic Assessment & Plan: - Continue statin Code(s): E78.5 - HYPERLIPIDEMIA, UNSPECIFIED (4) Type 2 diabetes mellitus Current Visit: No Status: Chronic Qualifiers: Diabetes mellitus terminal makeup operator insulin use: without mcc use Diabetes mellitus complication status: without complication Qualified Code(s): E11.9 - Type 2 diabetes mellitus without complications Assessment & Plan: - Hold oral meds - Start S/S insulin - Accuchecks AC/HS - A1C 7.94- 11/03/24- controlled - Carb consistent diet 12/13 - S/S changed overnight to high dose and regular insulin dose had to be given as glucose was elevated per overnight provider - A1C 9.23- now uncontrolled - Glucose controlled this AM - Education provided on glucose control - Likely elevated 2:2 steroids (5) Anxiety Current Visit: No Status: Acute Assessment & Plan: - Hydroxyzine PO PRN Code(s): F41.9 - ANXIETY DISORDER, UNSPECIFIED (6) BMI 32.0-32.9,adult Current Visit: Yes Status: Chronic Assessment & Plan: - Advised diet and exercise control Code(s): Z68.32 - BODY MASS INDEX [BMI] 32.0-32.9, ADULT (7) HTN (hypertension) Current Visit: Yes Status: Chronic Assessment & Plan: - Bp elevated- trend - Restart meds 12/13 - BP stable today VTE: Eliquis PPI: Protonix Next of KIN: Daughter D/C plan: tomorrow Code status: Full Plan of care time > 40 minutes Code(s): I10 - ESSENTIAL (PRIMARY) HYPERTENSION Code(s): I10 - ESSENTIAL (PRIMARY) HYPERTENSION
[2024-12-13] MEDS: HUMALOG SQ SCH (12:28)
[2024-12-13] MEDS: MORPHINE SULFATE 2 MG INJ IV ONE (14:34)
[2024-12-13] MEDS: HUMALOG SQ PRN (16:38)
[2024-12-13] MEDS: CHLORASEPTIC SPRAY 180 ML PO PRN (17:10)
[2024-12-13] MEDS: Xopenex 1.25 MG/0.5 ML UD NEBULE IH SCH (19:51)
[2024-12-13] MEDS: Lantus Insulin SQ SCH (21:28)
[2024-12-14] MEDS ORDERED: DUONEB 0.5-3 MG/3 ml Neb IH ONE (04:19)
[2024-12-14] MEDS: DUONEB 0.5-3 MG/3 ml Neb IH PRN (04:20)
[2024-12-14 06:49] LABS: Hematocrit 33.9 % (34.1-44.9); Hemoglobin 10.5 g/dL (11.2-15.7); Mean Corpuscular Hemoglobin 28.4 pg (25.6-32.2); Mean Corpuscular Hgb Concent. 31.0 g/dL (32.2-35.5); Platelet Count 282 x10^3/uL (182-369); Red Blood Count 3.70 x10^6/uL (3.93-5.22); White Blood Count 11.2 x10^3/uL (3.98-10.04)
[2024-12-14 07:08] LABS: Calcium 8.7 mg/dL (8.4-10.2); Carbon Dioxide 26.0 mmol/L (22-30); Creatinine 1 0.76 mg/dL (0.52-1.04); EST GLOMERULAR FILTRATION RATE 77.7 ML/MIN; Glucose 443.0 mg/dL (74-106); Potassium 4.5 mmol/L (3.5-5.1); SGOT/AST 24.0 U/L (14-36); SGPT/ALT 20.0 U/L (0-35); Total Protein 6.1 g/dL (6.3-8.2)
[2024-12-14] MEDS ORDERED: HUMALOG SQ SCH (07:45)
[2024-12-14] MEDS: HUMALOG SQ ONE (08:08)
--- NOTE | 2024-12-14 10:54 | PCM.NOTE ---
Date and Time: 12/14/24 1046 Subjective Assessment: 12/12/24 is a 84-year-old female with a past medical history of COPD on 3 L oxygen, hypertension, hyperlipidemia, type II diabetes mellitus, GERD, diverticulosis, and osteoporosis presented to the emergency department with worsening shortness of breath that began approximately three days ago and had progressively worsened over the past two days. She has a history of frequent ED visits for similar symptoms, with her most recent admission from 11/03 to 11/06 for COPD exacerbation and hypertension. She reported that her shortness of breath is worse with exertion and noted difficulty lying flat the night prior to admission. On her baseline 3 L nasal cannula, her oxygen saturation remained 9798%. Laboratory results were overall non-concerning, chest X-ray was clear, and flu, COVID, and RSV testing were negative. In the ED, she received Duonebs, ceftriaxone, and steroids without reported improvement. Her daughter, who accompanied her, expressed concern that the patients symptoms may be anxiety- related, particularly since the daughter has been out of town and unable to attend to her. On exam, the patient was noted to have pursed-lip breathing and diminished lung sounds. She denied chest pain, abdominal pain, nausea, vomiting, or diarrhea, and was unable to identify a clear cause for her symptoms. 12/13/24 The patient is resting in bed with continued shortness of breath, currently stable on her baseline oxygen at 3L nasal cannula with saturations at 99%. Laboratory studies were overall unremarkable except for an elevated hemoglobin A1C of 9.23. She experienced hyperglycemia overnight, for which additional insulin was administered, her sliding scale was increased to high dose, and intravenous fluids were provided per the overnight provider. Her glucose is stable this morning. Education was given regarding glucose control; however, frequent hospitalizations and steroid use have made management challenging for her. The patient expressed a desire to discharge tomorrow if possible and currently denies any further concerns. 12/14/24 Pt sitting up in bed. Lung sounds are clear and labs reviewed with pt. Pt states she continued to feel very SOB, she is on baseline O2 of 3lNC at 97%. WBC up likely 2:2 steroids. Will decrease steroids today as glucose elevated. Pt reports she no longer uses s/s at home and will likely need this at D/C as A1C is 9.23. She denies CP, abd. pain, N/V/D. - Review of Systems Constitutional: No Fever, No Chills Eyes: No Symptoms Ears, Nose, & Throat: No Symptoms, Throat Pain Respiratory: Cough (with white/clear sputum), Short Of Breath Cardiac: No Chest Pain, No Edema, No Syncope Abdominal/Gastrointestinal: No Abdominal Pain, No Nausea, No Vomiting, No Diarrhea Genitourinary Symptoms: No Dysuria Musculoskeletal: No Back Pain, No Neck Pain Skin: No Rash Neurological: No Dizziness, No Focal Weakness, No Sensory Changes Psychological: No Symptoms, Anxiety Endocrine: No Symptoms Hematologic/Lymphatic: No Symptoms Immunological/Allergic: No Symptoms Objective Exam General Appearance: no apparent distress, alert, obese Neurologic Exam: alert, oriented x 3, cooperative, normal mood/affect, nml cerebellar function, sensation nml, No motor deficits Skin Exam: normal color, warm, dry Eye Exam: PERRL, EOMI, eyes nml inspection Ears, Nose, Throat Exam: normal ENT inspection, pharynx normal, moist mucous membranes Neck Exam: normal inspection, non-tender, supple, full range of motion Respiratory Exam: normal breath sounds, lungs clear, No respiratory distress Cardiovascular Exam: regular rate/rhythm, normal heart sounds Gastrointestinal/Abdomen Exam: soft, No tenderness, No mass Extremity Exam: normal inspection, normal range of motion Back Exam: normal inspection, normal range of motion, No CVA tenderness, No vertebral tenderness Pelvic Exam: deferred Rectal Exam: deferred Objective Data Vital Signs: Vital Signs - 24 hr Temp Pulse Resp BP Pulse Ox 12/14/24 07:25 97.6 F 90 16 168/84 97 12/14/24 07:11 90 18 97 12/14/24 04:34 96 H 26 H 98 12/14/24 03:49 98.0 F 91 H 20 123/60 95 12/14/24 00:32 99 H 24 98 12/14/24 00:00 97.9 F 87 21 142/72 95 12/13/24 19:56 98 H 22 99 12/13/24 19:43 98.4 F 106 H 18 133/67 95 12/13/24 16:00 97.4 F 106 H 18 128/68 98 12/13/24 13:08 106 H 18 97 12/13/24 11:39 97.7 F 95 H 18 143/84 99 Pain Assessment - Last Documented Pain Intensity 0 Pain Scale Used 0-10 Pain Scale Intake and Output: Intake & Output 12/11/24 12/12/24 12/13/24 12/14/24 11:59 11:59 11:59 11:59 Intake Total 2924 2319 Output Total 254 Balance 9 Weight 83.6 kg 82.7 kg Lab Results: Lab Results-Last 24 Hours 12/13/24 12/13/24 12/13/24 Range/Units 11:28 14:26 14:55 WBC (3.98-10.04) x10^3/uL RBC (3.93-5.22) x10^6/uL Hgb (11.2-15.7) g/dL Hct (34.1-44.9) % MCV (79.4-94.8) fL MCH (25.6-32.2) pg MCHC (32.2-35.5) g/dL RDW (11.7-14.4) % Plt Count (182-369) x10^3/uL MPV (9.4-12.3) fL D-Dimer 0.44 (0.0-0.50) mg/L Sodium (135-145) mmol/L Potassium (3.5-5.1) mmol/L Chloride (98-107) mmol/L Carbon Dioxide (22-30) mmol/L Anion Gap (5-15) MEQ/L BUN (7-17) mg/dL Creatinine (0.52-1.04) mg/dL Estimated GFR ML/MIN Glucose (74-106) mg/dL POC Glucometer 321 H (74 to 106) mg/dL Calcium (8.4-10.2) mg/dL Total Bilirubin (0.2-1.3) mg/dL AST (14-36) U/L ALT (0-35) U/L Alkaline Phosphatase (38-126) U/L Troponin I < 0.012 (0.000-0.033) ng/mL Serum Total Protein (6.3-8.2) g/dL Albumin (3.5-5.0) g/dL 12/13/24 12/13/24 12/13/24 Range/Units 16:31 17:51 20:43 WBC (3.98-10.04) x10^3/uL RBC (3.93-5.22) x10^6/uL Hgb (11.2-15.7) g/dL Hct (34.1-44.9) % MCV (79.4-94.8) fL MCH (25.6-32.2) pg MCHC (32.2-35.5) g/dL RDW (11.7-14.4) % Plt Count (182-369) x10^3/uL MPV (9.4-12.3) fL D-Dimer (0.0-0.50) mg/L Sodium (135-145) mmol/L Potassium (3.5-5.1) mmol/L Chloride (98-107) mmol/L Carbon Dioxide (22-30) mmol/L Anion Gap (5-15) MEQ/L BUN (7-17) mg/dL Creatinine (0.52-1.04) mg/dL Estimated GFR ML/MIN Glucose (74-106) mg/dL POC Glucometer 345 H 226 H (74 to 106) mg/dL Calcium (8.4-10.2) mg/dL Total Bilirubin (0.2-1.3) mg/dL AST (14-36) U/L ALT (0-35) U/L Alkaline Phosphatase (38-126) U/L Troponin I < 0.012 (0.000-0.033) ng/mL Serum Total Protein (6.3-8.2) g/dL Albumin (3.5-5.0) g/dL 12/13/24 12/14/24 12/14/24 Range/Units 21:18 05:45 05:45 WBC 11.2 H (3.98-10.04) x10^3/uL RBC 3.70 L (3.93-5.22) x10^6/uL Hgb 10.5 L (11.2-15.7) g/dL Hct 33.9 L (34.1-44.9) % MCV 91.6 (79.4-94.8) fL MCH 28.4 (25.6-32.2) pg MCHC 31.0 L (32.2-35.5) g/dL RDW 13.8 (11.7-14.4) % Plt Count 282 (182-369) x10^3/uL MPV 10.2 (9.4-12.3) fL D-Dimer (0.0-0.50) mg/L Sodium 137 (135-145) mmol/L Potassium 4.5 (3.5-5.1) mmol/L Chloride 104 (98-107) mmol/L Carbon Dioxide 26 (22-30) mmol/L Anion Gap 11.3 (5-15) MEQ/L BUN 28 H (7-17) mg/dL Creatinine 0.76 (0.52-1.04) mg/dL Estimated GFR 77.7 ML/MIN Glucose 443 H (74-106) mg/dL POC Glucometer (74 to 106) mg/dL Calcium 8.7 (8.4-10.2) mg/dL Total Bilirubin 0.20 (0.2-1.3) mg/dL AST 24 (14-36) U/L ALT 20 (0-35) U/L Alkaline Phosphatase 82 (38-126) U/L Troponin I < 0.012 (0.000-0.033) ng/mL Serum Total Protein 6.1 L (6.3-8.2) g/dL Albumin 3.6 (3.5-5.0) g/dL // Range/Units 07:14 WBC (3.98-10.04) x10^3/uL RBC (3.93-5.22) x10^6/uL Hgb (11.2-15.7) g/dL Hct (34.1-44.9) % MCV (79.4-94.8) fL MCH (25.6-32.2) pg MCHC (32.2-35.5) g/dL RDW (11.7-14.4) % Plt Count (182-369) x10^3/uL MPV (9.4-12.3) fL D-Dimer (0.0-0.50) mg/L Sodium (135-145) mmol/L Potassium (3.5-5.1) mmol/L Chloride (98-107) mmol/L Carbon Dioxide (22-30) mmol/L Anion Gap (5-15) MEQ/L BUN (7-17) mg/dL Creatinine (0.52-1.04) mg/dL Estimated GFR ML/MIN Glucose (74-106) mg/dL POC Glucometer 357 H (74 to 106) mg/dL Calcium (8.4-10.2) mg/dL Total Bilirubin (0.2-1.3) mg/dL AST (14-36) U/L ALT (0-35) U/L Alkaline Phosphatase (38-126) U/L Troponin I (0.000-0.033) ng/mL Serum Total Protein (6.3-8.2) g/dL Albumin (3.5-5.0) g/dL Radiology Exams: Radiology Procedures Category Date Time Status CHEST 1 VIEW (PORTABLE) Stat Exams 12/12/24 11:40 Completed Medications: Medications Generic Name Dose Route Start Last Admin Trade Name Freq PRN Reason Stop Dose Admin Albuterol/Ipratropium 3 ml 12/14/24 04:32 12/14/24 04:20 Ipratropium/Albuterol Sulfate 3 Ml Ampul.Neb IH 01/13/25 04:31 3 ml Q2HPRN PRN Administration SHORTNESS OF BREATH/WHEEZING Amlodipine Besylate 2.5 mg 12/13/24 10:00 12/14/24 09:20 Amlodipine Besylate 5 Mg Tablet PO 01/12/25 09:59 2.5 mg DAILY JANNETH Administration Apixaban 5 mg 12/13/24 10:00 12/14/24 09:19 Apixaban 2.5 Mg Tablet PO 01/12/25 09:59 5 mg BID JANNETH Administration Azelastine HCl 0 ml 12/12/24 22:00 12/14/24 09:58 Azelastine Hcl 30 Ml Bottle Nasal INTRANASAL 01/11/25 21:59 1 ml BID JANNETH Administration Budesonide 0.5 mg 12/12/24 19:00 12/14/24 07:10 Budesonide 0.5 Mg/2 Ml Ampul.Neb. IH 01/11/25 18:59 0.5 mg BIDRT JANNETH Administration Cholecalciferol 4,000 unit 12/13/24 10:00 12/14/24 09:19 Cholecalciferol (Vitamin D3) 1000 Unit Tablet PO 01/12/25 09:59 4,000 unit DAILY JANNETH Administration Methylprednisolone Sodium 0 mg 12/12/24 22:00 12/14/24 09:53 Succinate 40 mg/ Sterile Water IV 01/11/25 21:59 40 mg 1 ml Q12HT JANNETH Administration Cyanocobalamin 1,000 mcg 12/13/24 10:00 12/14/24 09:19 Cyanocobalamin 500 Mcg Tablet PO 01/12/25 09:59 1,000 mcg DAILY JANNETH Administration Hydroxyzine HCl 25 mg 12/12/24 17:32 12/13/24 21:28 Hydroxyzine Hcl 25 Mg Tablet PO 01/11/25 17:31 25 mg BID PRN PRN Administration ANXIETY Ceftriaxone Sodium 1 gm in 100 mls @ 200 mls/hr 12/13/24 10:00 12/14/24 09:53 Rocephin 1 Gm / 100 Ml Nacl IV 01/12/25 09:59 200 mls/hr Q24H10 JANNETH Administration Insulin Glargine 10 unit 12/13/24 22:00 12/14/24 08:08 Insulin Glargine 1 Unit SQ 01/12/25 21:59 10 unit BID JANNETH Administration Insulin Human Lispro 0 unit 12/13/24 12:13 12/14/24 07:38 Insulin Lispro 1 Unit SQ 01/12/25 12:12 11 unit UD PRN Administration HYPERGLYCEMIA Insulin Human Lispro 15 unit 12/14/24 12:00 Insulin Lispro 1 Unit SQ 01/13/25 11:59 TIDWM JANNETH Levalbuterol HCl 1.25 mg 12/13/24 19:00 12/14/24 07:11 Levalbuterol Hcl 1.25 Mg/0.5 Ml Neb IH 01/12/25 18:59 1.25 mg Q6HRT JANNETH Administration Lisinopril 20 mg 12/13/24 10:00 12/14/24 09:20 Lisinopril 20 Mg Tablet PO 01/12/25 09:59 20 mg DAILY JANNETH Administration Metoprolol Succinate 25 mg 12/13/24 10:00 12/14/24 09:20 Metoprolol Succinate 25 Mg Xl Tab PO 01/12/25 09:59 25 mg DAILY JANNETH Administration Miscellaneous Information 1 each 12/13/24 07:45 Medication Intervention 1 Each Each 01/12/25 07:44 .RT TO CHECK JANNETH Montelukast Sodium 10 mg 12/13/24 10:00 12/14/24 09:20 Montelukast Sodium 10 Mg Tablet PO 01/12/25 09:59 10 mg DAILY JANNETH Administration Pantoprazole Sodium 40 mg 12/13/24 10:00 12/14/24 09:21 Protonix (Pantoprazole) 40 Mg Tablet PO 01/12/25 09:59 40 mg DAILY JANNETH Administration Phenol 1 ml 12/13/24 17:04 12/13/24 17:10 Phenol/Sodium Phenolate 180 Ml Bottle PO 01/12/25 17:03 1 ml QID PRN PRN Administration PAIN Polyethylene Glycol 17 gm 12/12/24 17:32 Polyethylene Glycol 3350 17 Gm Packet PO 01/11/25 17:31 QDP PRN CONSTIPATION Simvastatin 10 mg 12/13/24 10:00 12/14/24 09:20 Simvastatin 10 Mg Tablet PO 01/12/25 09:59 10 mg DAILY JANNETH Administration Sodium Chloride 3 ml 12/12/24 19:00 Sodium Cl For Inhalation 3 Ml Ud Nebule 01/11/25 18:59 BIDRT AJNNETH Discontinued Medications Generic Name Dose Route Start Last Admin Trade Name Freq PRN Reason Stop Dose Admin Albuterol/Ipratropium Confirm 12/12/24 11:36 Ipratropium/Albuterol Sulfate 3 Ml Ampul.Neb Administered 12/12/24 11:37 Dose 3 ml IH .STK-MED ONE Albuterol/Ipratropium 3 ml 12/12/24 11:39 12/12/24 11:40 Ipratropium/Albuterol Sulfate 3 Ml Ampul.Neb IH 12/12/24 11:40 3 ml STAT ONE Administration Albuterol/Ipratropium 3 ml 12/12/24 19:00 12/13/24 13:08 Ipratropium/Albuterol Sulfate 3 Ml Ampul.Neb IH 01/11/25 18:59 3 ml Q6HRT JANNETH Administration Albuterol/Ipratropium Confirm 12/14/24 04:19 Ipratropium/Albuterol Sulfate 3 Ml Ampul.Neb Administered 12/14/24 04:20 Dose 3 ml IH .STK-MED ONE Apixaban Confirm 12/12/24 22:31 Apixaban 2.5 Mg Tablet Administered 12/12/24 22:32 Dose 5 mg .ROUTE .STK-MED ONE Methylprednisolone Sodium 0 mg 12/12/24 11:40 12/12/24 11:46 Succinate 125 mg/ Sterile IV 12/12/24 11:41 125 mg Water 2 ml STAT ONE Administration Methylprednisolone Sodium 0 mg 12/12/24 22:00 Succinate 80 mg/ Sterile Water IV 01/11/25 21:59 2 ml Q8HT JANNETH Ceftriaxone Sodium 1 gm in 100 mls @ 200 mls/hr 12/12/24 15:19 12/12/24 15:59 Rocephin 1 Gm / 100 Ml Nacl IV 12/12/24 15:48 Infused STAT ONE Infusion Ceftriaxone Sodium Confirm 12/12/24 15:25 Rocephin 1 Gm / 100 Ml Nacl Administered 12/12/24 15:26 Dose 1 gm in 100 mls @ ud IV .STK-MED ONE Sodium Chloride 1,000 mls @ 100 mls/hr 12/12/24 22:30 12/12/24 22:37 Sodium Chloride 0.9% 1000 Ml IV 01/11/25 22:29 100 mls/hr .Q10H JANNETH Administration Insulin Glargine 10 unit 12/13/24 22:00 12/12/24 23:50 Insulin Glargine 1 Unit SQ 01/12/25 21:59 10 unit HS JANNETH Administration Insulin Glargine Confirm 12/12/24 23:49 Insulin Glargine 1 Unit Administered 12/12/24 23:50 Dose 10 unit .ROUTE .STK-MED ONE Insulin Human Lispro 0 unit 12/12/24 17:24 12/12/24 17:51 Insulin Lispro 1 Unit SQ 01/11/25 17:23 9 unit UD PRN Administration HYPERGLYCEMIA Insulin Human Lispro 0 unit 12/12/24 23:35 12/13/24 11:56 Insulin Lispro 1 Unit SQ 01/11/25 23:34 12 unit UD PRN Administration HYPERGLYCEMIA Insulin Human Lispro 10 unit 12/13/24 12:11 12/14/24 07:38 Insulin Lispro 1 Unit SQ 01/12/25 12:10 10 unit TIDWM JANNETH Administration Insulin Human Lispro 15 unit 12/14/24 07:45 Insulin Lispro 1 Unit SQ 01/12/25 12:10 TIDWM JANNETH Insulin Human Lispro 5 unit 12/14/24 07:58 12/14/24 08:08 Insulin Lispro 1 Unit SQ 12/14/24 07:59 5 unit ONCE ONE Administration Insulin Human Regular 0 unit 12/12/24 16:44 Insulin Regular, Human 1 Unit SQ 01/11/25 16:43 UD PRN HYPERGLYCEMIA Insulin Human Regular 10 unit 12/12/24 22:18 12/12/24 22:38 Insulin Regular, Human 1 Unit SQ 12/12/24 22:19 10 unit STAT ONE Administration Methylprednisolone Sodium Succinate Confirm 12/12/24 11:45 Methylprednis Sod Succ 125 Mg/2 Ml Vial Administered 12/12/24 11:46 Dose 125 mg .ROUTE .STK-MED ONE Morphine Sulfate 2 mg 12/12/24 17:22 12/12/24 17:31 Morphine Sulfate 2 Mg/Ml Inj IM 12/12/24 17:23 Not Given STAT ONE Morphine Sulfate 2 mg 12/12/24 17:25 12/12/24 17:36 Morphine Sulfate 2 Mg/Ml Inj IV 12/12/24 17:26 2 mg STAT ONE Administration Morphine Sulfate 2 mg 12/13/24 14:20 12/13/24 14:34 Morphine Sulfate 2 Mg/Ml Inj IV 12/13/24 14:21 2 mg STAT ONE Administration Non-Formulary Medication 5 mg 12/12/24 22:00 12/13/24 07:47 Apixaban [Eliquis] PO 01/11/25 21:59 Not Given BID JANNETH Sterile Water Confirm 12/12/24 11:45 Water For Injection,Sterile 10 Ml Vial Administered 12/12/24 11:46 Dose 10 ml IJ .STK-MED ONE Assessment/Plan (1) COPD exacerbation Current Visit: Yes Status: Acute Code(s): J44.1 - CHRONIC OBSTRUCTIVE PULMONARY DISEASE W (ACUTE) EXACERBATION (2) GERD (gastroesophageal reflux disease) Current Visit: No Status: Chronic Code(s): K21.9 - GASTRO-ESOPHAGEAL REFLUX DISEASE WITHOUT ESOPHAGITIS (3) HLD (hyperlipidemia) Current Visit: No Status: Chronic Code(s): E78.5 - HYPERLIPIDEMIA, UNSPECIFIED (4) Type 2 diabetes mellitus Current Visit: No Status: Chronic 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: 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: without 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 Diabetes mellitus complication status: without complication Qualified Code(s): E11.9 - Type 2 diabetes mellitus without complications (5) Anxiety Current Visit: No Status: Acute Code(s): F41.9 - ANXIETY DISORDER, UNSPECIFIED (6) BMI 32.0-32.9,adult Current Visit: Yes Status: Chronic Code(s): Z68.32 - BODY MASS INDEX [BMI] 32.0-32.9, ADULT (7) HTN (hypertension) Current Visit: Yes Status: Chronic Assessment & Plan: (1) COPD exacerbation Current Visit: Yes Status: Acute Assessment & Plan: - Ceftriaxone IV - Solumedrol 40 MG IV BID - Duonebs, Pulmicort - Morphine 2mg IV stat - On baseline 3lNC 98% - CXR: Portable chest again hyperinflated with new mild left base discoid atelectasis Stable CT proven right base calcified granuloma and small hiatal hernia. Remaining heart and lungs unremarkable. No acute findings. - CBC, CMP reviewed - BC x2 pending - Flu/COVID/RSV negative 12/13 - Continued SOB- on BL O2 3LNC at 99% - CBC, CMP reviewed and non-concerning - Duonebs changed to xoponex d/t elevated HR 12/14 - Continued SOB- on BL O2 3LNC at 97% - CBC, CMP reviewed and non-concerning - Lungs clear - WBC up at 11.2- liekly 2:2 steroids - Steroids changed to Prednisone 20mg PO BID Code(s): J44.1 - CHRONIC OBSTRUCTIVE PULMONARY DISEASE W (ACUTE) EXACERBATION (2) GERD (gastroesophageal reflux disease) Current Visit: No Status: Chronic Assessment & Plan: - Continue Protonix Code(s): K21.9 - GASTRO-ESOPHAGEAL REFLUX DISEASE WITHOUT ESOPHAGITIS (3) HLD (hyperlipidemia) Current Visit: No Status: Chronic Assessment & Plan: - Continue statin Code(s): E78.5 - HYPERLIPIDEMIA, UNSPECIFIED (4) Type 2 diabetes mellitus Current Visit: No Status: Chronic Qualifiers: 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: without 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 Diabetes mellitus complication status: without complication Qualified Code(s): E11.9 - Type 2 diabetes mellitus without complications Assessment & Plan: - Hold oral meds - Start S/S insulin - Accuchecks AC/HS - A1C 7.94- 11/03/24- controlled - Carb consistent diet 12/13 - S/S changed overnight to high dose and regular insulin dose had to be given as glucose was elevated per overnight provider - A1C 9.23- now uncontrolled - Glucose controlled this AM - Education provided on glucose control - Likely elevated 2:2 steroids 12/14 - Humalog increased to 15 units with meals - Steroids decreased so this may help (5) Anxiety Current Visit: No Status: Acute Assessment & Plan: - Hydroxyzine PO BID PRN- consider increasing if needed Code(s): F41.9 - ANXIETY DISORDER, UNSPECIFIED (6) BMI 32.0-32.9,adult Current Visit: Yes Status: Chronic Assessment & Plan: - Advised diet and exercise control Code(s): Z68.32 - BODY MASS INDEX [BMI] 32.0-32.9, ADULT (7) HTN (hypertension) Current Visit: Yes Status: Chronic Assessment & Plan: - Bp elevated- trend - Restart meds 12/13 - BP stable today Code(s): I10 - ESSENTIAL (PRIMARY) HYPERTENSION (8) Sore throat Current Visit: Yes Status: Acute Assessment & Plan: - Chloraseptic spray PRN VTE: Eliquis PPI: Protonix Next of KIN: Daughter D/C plan: tomorrow Code status: Full Plan of care time > 40 minutes Code(s): J02.9 - ACUTE PHARYNGITIS, UNSPECIFIED
[2024-12-14] MEDS: HUMALOG SQ SCH (11:48)
[2024-12-14] MEDS: HUMALOG SQ PRN (16:36)
[2024-12-14] MEDS: Sodium Chloride 3 ML UD NEBULES IH SCH (18:59)
[2024-12-14] MEDS: DELTASONE 20 MG PO SCH (21:22)
[2024-12-15 05:07] LABS: Hematocrit 34.7 % (34.1-44.9); Hemoglobin 10.8 g/dL (11.2-15.7); Mean Corpuscular Hemoglobin 28.3 pg (25.6-32.2); Mean Corpuscular Hgb Concent. 31.1 g/dL (32.2-35.5); Platelet Count 302 x10^3/uL (182-369); Red Blood Count 3.82 x10^6/uL (3.93-5.22); White Blood Count 10.2 x10^3/uL (3.98-10.04)
[2024-12-15 05:20] LABS: Calcium 9.0 mg/dL (8.4-10.2); Carbon Dioxide 30.0 mmol/L (22-30); Creatinine 1 0.65 mg/dL (0.52-1.04); EST GLOMERULAR FILTRATION RATE 87.3 ML/MIN; Glucose 238.0 mg/dL (74-106); Potassium 4.2 mmol/L (3.5-5.1); SGOT/AST 25.0 U/L (14-36); SGPT/ALT 20.0 U/L (0-35); Total Protein 6.3 g/dL (6.3-8.2)
--- NOTE | 2024-12-15 05:26 | PCM.NOTE ---
Date and Time: 12/15/24521 Subjective Assessment: Ms. Garcia is an 84-year-old female with a past medical history of COPD on baseline 3 L nasal cannula, hypertension, hyperlipidemia, type 2 diabetes mellitus, GERD, diverticulosis, and osteoporosis presented with three days of worsening shortness of breath, worse over the past two days and with difficulty lying flat. She has frequent ED visits for similar complaints and was most recently admitted for COPD exacerbation and hypertension. On presentation, she was saturating 9798% on baseline oxygen. Laboratory workup was non-concerning, flu/COVID/RSV negative, and chest X-ray demonstrated hyperinflation with mild left basilar discoid atelectasis but no acute infiltrate. She was treated in the ED with Duonebs, ceftriaxone, and IV steroids without significant immediate improvement. On exam she had pursed-lip breathing and diminished lung sounds. Her daughter expressed concern that anxiety may be contributing to her symptoms. She remains stable on baseline 3 L oxygen with saturations 9899%. Laboratory studies remain unremarkable except for uncontrolled diabetes, with A1C now 9.23 and hyperglycemia overnight requiring additional insulin, escalation of sliding scale to high dose, and IV fluids. Glucose is currently stable after adjustment, and education was provided on steroid-related hyperglycemia. She continues on steroids, antibiotics, and nebulizers for COPD management. Objective Data Vital Signs: Vital Signs - 24 hr Temp Pulse Resp BP Pulse Ox 12/15/24 04:30 97.9 F 93 H 20 164/80 94 L 12/15/24 01:03 75 20 99 12/14/24 23:35 97.5 F 79 20 165/88 97 12/14/24 20:00 97.9 F 102 H 24 136/86 95 12/14/24 19:02 86 20 96 12/14/24 15:59 97.8 F 88 16 166/79 95 12/14/24 13:27 89 20 97 12/14/24 11:26 97.8 F 83 16 137/65 97 12/14/24 07:25 97.6 F 90 16 168/84 97 12/14/24 07:11 90 18 97 Pain Assessment - Last Documented Pain Intensity 0 Pain Scale Used 0-10 Pain Scale Intake and Output: Intake & Output 12/12/24 12/13/24 12/14/24 12/15/24 11:59 11:59 11:59 11:59 Intake Total 4712 3688 9290 Output Total 850 Balance 1172 2 1741 Weight 83.6 kg 82.7 kg Lab Results: Lab Results-Last 24 Hours 12/14/24 12/14/24 12/14/24 Range/Units 05:45 05:45 07:14 WBC 11.2 H (3.98-10.04) x10^3/uL RBC 3.70 L (3.93-5.22) x10^6/uL Hgb 10.5 L (11.2-15.7) g/dL Hct 33.9 L (34.1-44.9) % MCV 91.6 (79.4-94.8) fL MCH 28.4 (25.6-32.2) pg MCHC 31.0 L (32.2-35.5) g/dL RDW 13.8 (11.7-14.4) % Plt Count 282 (182-369) x10^3/uL MPV 10.2 (9.4-12.3) fL Sodium 137 (135-145) mmol/L Potassium 4.5 (3.5-5.1) mmol/L Chloride 104 (98-107) mmol/L Carbon Dioxide 26 (22-30) mmol/L Anion Gap 11.3 (5-15) MEQ/L BUN 28 H (7-17) mg/dL Creatinine 0.76 (0.52-1.04) mg/dL Estimated GFR 77.7 ML/MIN Glucose 443 H (74-106) mg/dL POC Glucometer 357 H (74 to 106) mg/dL Calcium 8.7 (8.4-10.2) mg/dL Total Bilirubin 0.20 (0.2-1.3) mg/dL AST 24 (14-36) U/L ALT 20 (0-35) U/L Alkaline Phosphatase 82 (38-126) U/L Serum Total Protein 6.1 L (6.3-8.2) g/dL Albumin 3.6 (3.5-5.0) g/dL 12/14/24 12/14/24 12/14/24 Range/Units 11:17 15:51 21:00 WBC (3.98-10.04) x10^3/uL RBC (3.93-5.22) x10^6/uL Hgb (11.2-15.7) g/dL Hct (34.1-44.9) % MCV (79.4-94.8) fL MCH (25.6-32.2) pg MCHC (32.2-35.5) g/dL RDW (11.7-14.4) % Plt Count (182-369) x10^3/uL MPV (9.4-12.3) fL Sodium (135-145) mmol/L Potassium (3.5-5.1) mmol/L Chloride (98-107) mmol/L Carbon Dioxide (22-30) mmol/L Anion Gap (5-15) MEQ/L BUN (7-17) mg/dL Creatinine (0.52-1.04) mg/dL Estimated GFR ML/MIN Glucose (74-106) mg/dL POC Glucometer 342 H 259 H 128 H (74 to 106) mg/dL Calcium (8.4-10.2) mg/dL Total Bilirubin (0.2-1.3) mg/dL AST (14-36) U/L ALT (0-35) U/L Alkaline Phosphatase (38-126) U/L Serum Total Protein (6.3-8.2) g/dL Albumin (3.5-5.0) g/dL 12/15/24 Range/Units 04:26 WBC 10.2 H (3.98-10.04) x10^3/uL RBC 3.82 L (3.93-5.22) x10^6/uL Hgb 10.8 L (11.2-15.7) g/dL Hct 34.7 (34.1-44.9) % MCV 90.8 (79.4-94.8) fL MCH 28.3 (25.6-32.2) pg MCHC 31.1 L (32.2-35.5) g/dL RDW 13.7 (11.7-14.4) % Plt Count 302 (182-369) x10^3/uL MPV 10.1 (9.4-12.3) fL Sodium (135-145) mmol/L Potassium (3.5-5.1) mmol/L Chloride (98-107) mmol/L Carbon Dioxide (22-30) mmol/L Anion Gap (5-15) MEQ/L BUN (7-17) mg/dL Creatinine (0.52-1.04) mg/dL Estimated GFR ML/MIN Glucose (74-106) mg/dL POC Glucometer (74 to 106) mg/dL Calcium (8.4-10.2) mg/dL Total Bilirubin (0.2-1.3) mg/dL AST (14-36) U/L ALT (0-35) U/L Alkaline Phosphatase (38-126) U/L Serum Total Protein (6.3-8.2) g/dL Albumin (3.5-5.0) g/dL Medications: Medications Generic Name Dose Route Start Last Admin Trade Name Freq PRN Reason Stop Dose Admin Albuterol/Ipratropium 3 ml 12/14/24 04:32 12/14/24 13:27 Ipratropium/Albuterol Sulfate 3 Ml Ampul.Neb IH 01/13/25 04:31 3 ml Q2HPRN PRN Administration SHORTNESS OF BREATH/WHEEZING Amlodipine Besylate 2.5 mg 12/13/24 10:00 12/14/24 09:20 Amlodipine Besylate 5 Mg Tablet PO 01/12/25 09:59 2.5 mg DAILY JANNETH Administration Apixaban 5 mg 12/13/24 10:00 12/14/24 21:23 Apixaban 2.5 Mg Tablet PO 01/12/25 09:59 5 mg BID JANNETH Administration Azelastine HCl 0 ml 12/12/24 22:00 12/14/24 22:48 Azelastine Hcl 30 Ml Bottle Nasal INTRANASAL 01/11/25 21:59 30 ml BID JANNETH Administration Budesonide 0.5 mg 12/12/24 19:00 12/14/24 19:00 Budesonide 0.5 Mg/2 Ml Ampul.Neb. IH 01/11/25 18:59 0.5 mg BIDRT JANNETH Administration Cholecalciferol 4,000 unit 12/13/24 10:00 12/14/24 09:19 Cholecalciferol (Vitamin D3) 1000 Unit Tablet PO 01/12/25 09:59 4,000 unit DAILY JANNETH Administration Cyanocobalamin 1,000 mcg 12/13/24 10:00 12/14/24 09:19 Cyanocobalamin 500 Mcg Tablet PO 01/12/25 09:59 1,000 mcg DAILY JANNETH Administration Hydroxyzine HCl 25 mg 12/12/24 17:32 12/14/24 11:48 Hydroxyzine Hcl 25 Mg Tablet PO 01/11/25 17:31 25 mg BID PRN PRN Administration ANXIETY Ceftriaxone Sodium 1 gm in 100 mls @ 200 mls/hr 12/13/24 10:00 12/14/24 09:53 Rocephin 1 Gm / 100 Ml Nacl IV 01/12/25 09:59 200 mls/hr Q24H10 JANNETH Administration Insulin Glargine 10 unit 12/13/24 22:00 12/14/24 22:00 Insulin Glargine 1 Unit SQ 01/12/25 21:59 Not Given BID JANNETH Insulin Human Lispro 15 unit 12/14/24 12:00 12/14/24 16:35 Insulin Lispro 1 Unit SQ 01/13/25 11:59 15 unit TIDWM JANNETH Administration Insulin Human Lispro 0 unit 12/14/24 12:02 12/14/24 16:36 Insulin Lispro 1 Unit SQ 01/13/25 12:01 10 unit UD PRN Administration HYPERGLYCEMIA Levalbuterol HCl 1.25 mg 12/13/24 19:00 12/15/24 01:03 Levalbuterol Hcl 1.25 Mg/0.5 Ml Neb IH 01/12/25 18:59 1.25 mg Q6HRT JANNETH Administration Lisinopril 20 mg 12/13/24 10:00 12/14/24 09:20 Lisinopril 20 Mg Tablet PO 01/12/25 09:59 20 mg DAILY JANNETH Administration Metoprolol Succinate 25 mg 12/13/24 10:00 12/14/24 09:20 Metoprolol Succinate 25 Mg Xl Tab PO 01/12/25 09:59 25 mg DAILY JANNETH Administration Miscellaneous Information 1 each 12/13/24 07:45 Medication Intervention 1 Each Each 01/12/25 07:44 .RT TO CHECK JANNETH Montelukast Sodium 10 mg 12/13/24 10:00 12/14/24 09:20 Montelukast Sodium 10 Mg Tablet PO 01/12/25 09:59 10 mg DAILY JANNETH Administration Pantoprazole Sodium 40 mg 12/13/24 10:00 12/14/24 09:21 Protonix (Pantoprazole) 40 Mg Tablet PO 01/12/25 09:59 40 mg DAILY JANNETH Administration Phenol 1 ml 12/13/24 17:04 12/13/24 17:10 Phenol/Sodium Phenolate 180 Ml Bottle PO 01/12/25 17:03 1 ml QID PRN PRN Administration PAIN Polyethylene Glycol 17 gm 12/12/24 17:32 Polyethylene Glycol 3350 17 Gm Packet PO 01/11/25 17:31 QDP PRN CONSTIPATION Prednisone 20 mg 12/14/24 22:00 12/14/24 21:22 Prednisone 20 Mg Tablet PO 01/13/25 21:59 20 mg BID JANNETH Administration Simvastatin 10 mg 12/13/24 10:00 12/14/24 09:20 Simvastatin 10 Mg Tablet PO 01/12/25 09:59 10 mg DAILY JANNETH Administration Sodium Chloride 3 ml 12/12/24 19:00 12/15/24 01:02 Sodium Cl For Inhalation 3 Ml Ud Nebule 01/11/25 18:59 3 ml BIDRT JANNETH Administration Discontinued Medications Generic Name Dose Route Start Last Admin Trade Name Freq PRN Reason Stop Dose Admin Albuterol/Ipratropium Confirm 12/12/24 11:36 Ipratropium/Albuterol Sulfate 3 Ml Ampul.Neb Administered 12/12/24 11:37 Dose 3 ml IH .STK-MED ONE Albuterol/Ipratropium 3 ml 12/12/24 11:39 12/12/24 11:40 Ipratropium/Albuterol Sulfate 3 Ml Ampul.Neb 12/12/24 11:40 3 ml STAT ONE Administration Albuterol/Ipratropium 3 ml 12/12/24 19:00 12/13/24 13:08 Ipratropium/Albuterol Sulfate 3 Ml Ampul.Neb IH 01/11/25 18:59 3 ml Q6HRT JANNETH Administration Albuterol/Ipratropium Confirm 12/14/24 04:19 Ipratropium/Albuterol Sulfate 3 Ml Ampul.Neb Administered 12/14/24 04:20 Dose 3 ml IH .STK-MED ONE Apixaban Confirm 12/12/24 22:31 Apixaban 2.5 Mg Tablet Administered 12/12/24 22:32 Dose 5 mg .ROUTE .STK-MED ONE Methylprednisolone Sodium 0 mg 12/12/24 11:40 12/12/24 11:46 Succinate 125 mg/ Sterile IV 12/12/24 11:41 125 mg Water 2 ml STAT ONE Administration Methylprednisolone Sodium 0 mg 12/12/24 22:00 Succinate 80 mg/ Sterile Water IV 01/11/25 21:59 2 ml Q8HT JANNETH Methylprednisolone Sodium 0 mg 12/12/24 22:00 12/14/24 09:53 Succinate 40 mg/ Sterile Water IV 01/11/25 21:59 40 mg 1 ml Q12HT JANNETH Administration Ceftriaxone Sodium 1 gm in 100 mls @ 200 mls/hr 12/12/24 15:19 12/12/24 15:59 Rocephin 1 Gm / 100 Ml Nacl IV 12/12/24 15:48 Infused STAT ONE Infusion Ceftriaxone Sodium Confirm 12/12/24 15:25 Rocephin 1 Gm / 100 Ml Nacl Administered 12/12/24 15:26 Dose 1 gm in 100 mls @ ud IV .STK-MED ONE Sodium Chloride 1,000 mls @ 100 mls/hr 12/12/24 22:30 12/12/24 22:37 Sodium Chloride 0.9% 1000 Ml IV 01/11/25 22:29 100 mls/hr .Q10H JANNETH Administration Insulin Glargine 10 unit 12/13/24 22:00 12/12/24 23:50 Insulin Glargine 1 Unit SQ 01/12/25 21:59 10 unit HS JANNETH Administration Insulin Glargine Confirm 12/12/24 23:49 Insulin Glargine 1 Unit Administered 12/12/24 23:50 Dose 10 unit .ROUTE .STK-MED ONE Insulin Human Lispro 0 unit 12/12/24 17:24 12/12/24 17:51 Insulin Lispro 1 Unit SQ 01/11/25 17:23 9 unit UD PRN Administration HYPERGLYCEMIA Insulin Human Lispro 0 unit 12/12/24 23:35 12/13/24 11:56 Insulin Lispro 1 Unit SQ 01/11/25 23:34 12 unit UD PRN Administration HYPERGLYCEMIA Insulin Human Lispro 10 unit 12/13/24 12:11 12/14/24 07:38 Insulin Lispro 1 Unit SQ 01/12/25 12:10 10 unit TIDWM JANNETH Administration Insulin Human Lispro 0 unit 12/13/24 12:13 12/14/24 11:48 Insulin Lispro 1 Unit SQ 01/12/25 12:12 9 unit UD PRN Administration HYPERGLYCEMIA Insulin Human Lispro 15 unit 12/14/24 07:45 Insulin Lispro 1 Unit SQ 01/12/25 12:10 TIDWM JANNETH Insulin Human Lispro 5 unit 12/14/24 07:58 12/14/24 08:08 Insulin Lispro 1 Unit SQ 12/14/24 07:59 5 unit ONCE ONE Administration Insulin Human Regular 0 unit 12/12/24 16:44 Insulin Regular, Human 1 Unit SQ 01/11/25 16:43 UD PRN HYPERGLYCEMIA Insulin Human Regular 10 unit 12/12/24 22:18 12/12/24 22:38 Insulin Regular, Human 1 Unit SQ 12/12/24 22:19 10 unit STAT ONE Administration Methylprednisolone Sodium Succinate Confirm 12/12/24 11:45 Methylprednis Sod Succ 125 Mg/2 Ml Vial Administered 12/12/24 11:46 Dose 125 mg .ROUTE .STK-MED ONE Morphine Sulfate 2 mg 12/12/24 17:22 12/12/24 17:31 Morphine Sulfate 2 Mg/Ml Inj IM 12/12/24 17:23 Not Given STAT ONE Morphine Sulfate 2 mg 12/12/24 17:25 12/12/24 17:36 Morphine Sulfate 2 Mg/Ml Inj IV 12/12/24 17:26 2 mg STAT ONE Administration Morphine Sulfate 2 mg 12/13/24 14:20 12/13/24 14:34 Morphine Sulfate 2 Mg/Ml Inj IV 12/13/24 14:21 2 mg STAT ONE Administration Non-Formulary Medication 5 mg 12/12/24 22:00 12/13/24 07:47 Apixaban [Eliquis] PO 01/11/25 21:59 Not Given BID JANNETH Sterile Water Confirm 12/12/24 11:45 Water For Injection,Sterile 10 Ml Vial Administered 12/12/24 11:46 Dose 10 ml IJ .STK-MED ONE Assessment/Plan (1) COPD exacerbation Current Visit: Yes Status: Acute Assessment & Plan: -On baseline 3 L NC, currently stable saturations 9799% -CXR: hyperinflated lungs with mild left base discoid atelectasis; no acute infiltrate -Flu/COVID/RSV negative -Started on IV ceftriaxone, Prednisone 20mg BID, Duonebs, Pulmicort -Morphine 2 mg IV given for dyspnea relief -Blood cultures x2 pending -Continue monitoring respiratory status and wean steroids/abx per improvement Code(s): J44.1 - CHRONIC OBSTRUCTIVE PULMONARY DISEASE W (ACUTE) EXACERBATION (2) Anxiety Current Visit: No Status: Acute Assessment & Plan: -Likely contributing to symptoms, per patients daughter -Hydroxyzine PO PRN ordered for anxiety management Code(s): F41.9 - ANXIETY DISORDER, UNSPECIFIED (3) GERD (gastroesophageal reflux disease) Current Visit: No Status: Chronic Assessment & Plan: -Continue Protonix Code(s): K21.9 - GASTRO-ESOPHAGEAL REFLUX DISEASE WITHOUT ESOPHAGITIS (4) HLD (hyperlipidemia) Current Visit: No Status: Chronic Assessment & Plan: -continue statin Code(s): E78.5 - HYPERLIPIDEMIA, UNSPECIFIED (5) HTN (hypertension) Current Visit: No Status: Chronic Assessment & Plan: -Initially elevated, likely in setting of COPD exacerbation and anxiety -Restarted home antihypertensives; currently stable -Continue monitoring BPs daily Code(s): I10 - ESSENTIAL (PRIMARY) HYPERTENSION (6) Obesity (BMI 30.0-34.9) Current Visit: No Status: Chronic Assessment & Plan: -Lifestyle counseling on ADA diet and exercise -Reinforce diet modification and gradual activity as tolerated Code(s): E66.9 - OBESITY, UNSPECIFIED (7) Type 2 diabetes mellitus Current Visit: No Status: Chronic Assessment & Plan: -Previously well controlled (A1C 7.94 on 11/03/24) -Now uncontrolled: A1C 9.23 with steroid-induced hyperglycemia -Humalog increased to 15 units units with meals -Oral agents held; on sliding scale insulin AC/HS, escalated to high-dose regimen -Education provided on glucose control and steroid effect VTE: Eliquis PPI: Protonix Next of KIN: Daughter D/C plan: tomorrow Code status: Full Plan of care time > 35 minutes
--- NOTE | 2024-12-15 10:31 | PCM.DS ---
Discharge Summary Date of Admission: 12/12/24 16:39 Date of Discharge: 12/15/24 Admitting Physician: MAKENZIE DENT MD Primary Care Provider: KELLY RAMOS DO Allergies Allergies metformin Adverse Reaction (Verified 12/12/24 16:55) Sick to stomach, headache Hospital Summary - Hospital Course Hospital Course: Ms. Garcia is an 84-year-old female with a history of COPD on 3 L nasal cannula, hypertension, hyperlipidemia, type 2 diabetes mellitus, GERD, diverticulosis, and osteoporosis who presented with three days of worsening shortness of breath, most pronounced over the two days prior to admission and associated with orthopnea. She has a history of frequent ED visits and was most recently hospitalized for COPD exacerbation and hypertension. On arrival, she was stable on her baseline oxygen with saturations 9798%. Chest X- ray demonstrated hyperinflated lungs with mild left basilar discoid atelectasis without acute infiltrate, and viral panel was negative for flu, COVID, and RSV. Laboratory studies were overall reassuring except for hyperglycemia with an A1C now 9.23, increased from 7.94 one month earlier. She was treated in the ED with Duonebs, IV ceftriaxone, and IV steroids, with limited immediate improvement, and on exam had pursed-lip breathing and diminished breath sounds. Her daughter raised concern for anxiety contributing to dyspnea. During hospitalization, she remained stable on 3 L oxygen with saturations consistently 9899%. She received ceftriaxone, prednisone 20 mg twice daily, Duonebs, and Pulmicort, with morphine 2 mg IV administered for symptomatic dyspnea relief. Blood cultures were obtained and remain pending at discharge. Anxiety was addressed with PRN hydroxyzine. Her hypertension, initially elevated in the setting of exacerbation and anxiety, stabilized with resumption of home antihypertensives. GERD and hyperlipidemia were managed with continuation of her outpatient Protonix and statin, respectively. Her obesity was addressed with counseling on ADA diet and gradual activity as tolerated. Her course was complicated by steroid-induced hyperglycemia, with glucose excursions requiring escalation of her insulin regimen to a high-dose sliding scale in addition to IV fluids. She stabilized after adjustment, and she is being discharged on Lantus 20 units daily with instructions to continue her home medications, and perform strict glucose monitoring with recognition of steroid effects. Education on diabetes management and the relationship between steroids and hyperglycemia was reinforced. She is stable for discharge on her baseline oxygen, continuing antibiotics, steroids, and nebulizer therapy, with outpatient follow-up arranged for further management and medication titration. She will be dismissed on prednisone 20mg bid x 5 days and lantus 20 units daily. Patient advised to keep blood glucose level logs and follow up as OP for continued maintenance. She is to notify her PCP with any consistent elevated blood glucose levels. Discharge Note New Diagnosis: COPD exacerbation New Medications: Prednisone 20mg bid x 5 days, Lantus 20 units daily Follow Up: PCP/Pulmonology I spent 35 minutes [id number] with the patient on the day of discharge performing discharge exam, discussing hospital stay and discharge instructions with patient and caregivers, preparation of discharge records, prescriptions & referral forms and addressing any questions/concerns the patient had as documented above. - Vitals & Intake/Output Vital Signs: Vital Signs Temperature 96.8 F 12/15/24 07:48 Pulse Rate 83 12/15/24 07:48 Respiratory Rate 20 12/15/24 07:48 Blood Pressure 162/77 12/15/24 07:48 O2 Sat by Pulse Oximetry 94 L 12/15/24 07:48 Intake & Output: Intake & Output 12/12/24 12/13/24 12/14/24 12/15/24 11:59 11:59 11:59 11:59 Intake Total 2924 2319 1979 Output Total 850 Balance 5699 2319 1979 Weight 83.6 kg 82.7 kg - Lab Result Diagrams: 12/15/24 04:26 12/15/24 04:26 Lab Results-Last 24 Hrs: Lab Results-Last 24 Hours 12/14/24 12/14/24 12/14/24 Range/Units 11:17 15:51 21:00 WBC (3.98-10.04) x10^3/uL RBC (3.93-5.22) x10^6/uL Hgb (11.2-15.7) g/dL Hct (34.1-44.9) % MCV (79.4-94.8) fL MCH (25.6-32.2) pg MCHC (32.2-35.5) g/dL RDW (11.7-14.4) % Plt Count (182-369) x10^3/uL MPV (9.4-12.3) fL Sodium (135-145) mmol/L Potassium (3.5-5.1) mmol/L Chloride (98-107) mmol/L Carbon Dioxide (22-30) mmol/L Anion Gap (5-15) MEQ/L BUN (7-17) mg/dL Creatinine (0.52-1.04) mg/dL Estimated GFR ML/MIN Glucose (74-106) mg/dL POC Glucometer 342 H 259 H 128 H (74 to 106) mg/dL Calcium (8.4-10.2) mg/dL Total Bilirubin (0.2-1.3) mg/dL AST (14-36) U/L ALT (0-35) U/L Alkaline Phosphatase (38-126) U/L Serum Total Protein (6.3-8.2) g/dL Albumin (3.5-5.0) g/dL 12/15/24 12/15/24 Range/Units 04:26 04:26 WBC 10.2 H (3.98-10.04) x10^3/uL RBC 3.82 L (3.93-5.22) x10^6/uL Hgb 10.8 L (11.2-15.7) g/dL Hct 34.7 (34.1-44.9) % MCV 90.8 (79.4-94.8) fL MCH 28.3 (25.6-32.2) pg MCHC 31.1 L (32.2-35.5) g/dL RDW 13.7 (11.7-14.4) % Plt Count 302 (182-369) x10^3/uL MPV 10.1 (9.4-12.3) fL Sodium 137 (135-145) mmol/L Potassium 4.2 (3.5-5.1) mmol/L Chloride 101 (98-107) mmol/L Carbon Dioxide 30 (22-30) mmol/L Anion Gap 10.1 (5-15) MEQ/L BUN 24 H (7-17) mg/dL Creatinine 0.65 (0.52-1.04) mg/dL Estimated GFR 87.3 ML/MIN Glucose 238 H (74-106) mg/dL POC Glucometer (74 to 106) mg/dL Calcium 9.0 (8.4-10.2) mg/dL Total Bilirubin 0.40 (0.2-1.3) mg/dL AST 25 (14-36) U/L ALT 20 (0-35) U/L Alkaline Phosphatase 81 (38-126) U/L Serum Total Protein 6.3 (6.3-8.2) g/dL Albumin 3.7 (3.5-5.0) g/dL Micro Results-Entire Visit: Microbiology 12/12/24 12:48 Blood Culture - Preliminary Blood 12/12/24 12:35 Blood Culture - Preliminary Blood Accuchecks Date 12/15/24 Date 12/14/24 Date 12/14/24 Time 07:48 Time 21:00 Time 16:01 - Procedures and Test Procedures and Tests throughout Hospitalization: Therapy Orders & Screens 12/12/24 11:39 Respiratory Therapy Assessment DAILY Comment: 12/12/24 16:44 EKG REPEAT IN AM Comment: Respiratory Therapy Consult ONCE Comment: Reason For Exam: 12/12/24 16:58 Oxygen Nasal Cannula 3 lpm Comment: 12/13/24 14:19 EKG STAT Comment: Diagnosis: COPD exacerbation Discharge Exam General Appearance: no apparent distress Neurologic Exam: alert, oriented x 3, cooperative Eye Exam: PERRL Ears, Nose, Throat Exam: normal ENT inspection Neck Exam: normal inspection Respiratory Exam: diminished breath sounds Cardiovascular Exam: regular rate/rhythm, normal heart sounds Gastrointestinal/Abdomen Exam: soft, normal bowel sounds Pelvic Exam: deferred Rectal Exam: deferred Back Exam: normal inspection Extremity Exam: normal inspection Skin Exam: normal color Final Diagnosis/Problem List - Final Discharge Diagnosis/Problem (1) COPD exacerbation Current Visit: Yes Status: Acute Assessment & Plan: Stable on baseline 3 L NC, saturating 9799%. CXR: hyperinflation with mild left basilar atelectasis, no acute infiltrate. Viral panel negative. Continue prednisone taper, maintain Duonebs and resume home inhaler regimen. Outpatient pulmonary follow-up; monitor respiratory status and wean steroids/antibiotics as tolerated. Code(s): J44.1 - CHRONIC OBSTRUCTIVE PULMONARY DISEASE W (ACUTE) EXACERBATION (2) Anxiety Current Visit: No Status: Acute Assessment & Plan: Noted by family as a contributing factor to dyspnea. Code(s): F41.9 - ANXIETY DISORDER, UNSPECIFIED (3) GERD (gastroesophageal reflux disease) Current Visit: No Status: Chronic Assessment & Plan: Continue Protonix daily. Reinforce lifestyle modifications (elevate head of bed, avoid late meals, limit reflux triggers) Code(s): K21.9 - GASTRO-ESOPHAGEAL REFLUX DISEASE WITHOUT ESOPHAGITIS (4) HLD (hyperlipidemia) Current Visit: No Status: Chronic Assessment & Plan: Continue statin Code(s): E78.5 - HYPERLIPIDEMIA, UNSPECIFIED (5) HTN (hypertension) Current Visit: No Status: Chronic Assessment & Plan: Resume home meds stable Code(s): I10 - ESSENTIAL (PRIMARY) HYPERTENSION (6) Obesity (BMI 30.0-34.9) Current Visit: No Status: Chronic Assessment & Plan: Lifestyle counseling provided on ADA diet, exercise as tolerated, and gradual weight reduction. Code(s): E66.9 - OBESITY, UNSPECIFIED (7) Type 2 diabetes mellitus Current Visit: No Status: Chronic Assessment & Plan: A1C increased to 9.23 (previously 7.94). Required escalation to high-dose sliding scale and IV fluids during admission. Treatment Plan: Discharge on Lantus 26 units daily; continue home regimen. Strict glucose monitoring AC/HS with patient education regarding steroid effect on glucose control. Follow up with PCP or endocrinology within 12 weeks. - Discharge Discharge Date: 12/15/24 Disposition: Home, Self-Care Condition: Stable Prescriptions: New Pen Needle, Diabetic [Advocate Pen Needle] See Rx Instructions .ROUTE .COMPLEX 30 Days #100 units Insulin Glargine,Hum.rec.anlog [Basaglar Kwikpen U-100] 20 unit SQ DAILY 30 Days #1 kit Prednisone 20 mg [Deltasone 20 mg] 20 mg PO BID 5 Days #10 tablet Albuterol/Ipratropium 3ml Neb* [DUONEB 0.5-3 MG/3 ml Neb] 3 ml IH Q2HPRN PRN PRN Reason: Shortness Of Breath/Wheezing Continue Albuterol 8 gm Mdi Hfa [Ventolin Hfa MDI] 8 gm IH QIDPRN PRN PRN Reason: Shortness Of Breath Albuterol 2.5 mg/3 ml Neb [Proventil 2.5 mg/3 ml Neb] 2.5 mg IH Q6HPRN PRN PRN Reason: Shortness Of Breath Lovastatin 20 mg PO DAILY Omeprazole 40 mg PO DAILY Metoprolol Succinate 25 mg Xl* [Toprol-Xl 25MG Tablets] 25 mg PO DAILY Lisinopril 20 mg [Zestril 20 MG] 20 mg PO DAILY Montelukast Sodium [Singulair] 10 mg PO DAILY Fluticasone/Umeclidin/Vilanter [Trelegy Ellipta 200-62.5-25] 1 blist IH DAILY Polyethylene Glycol 3350 17 gm [Miralax Powder 17GM PACKET] 17 gm PO QDP PRN PRN Reason: Constipation Ibandronate Sodium 150 mg PO UD Cyanocobalamin 500 Mcg [Vitamin B-12 500 MCG] 1,000 mcg PO DAILY Budesonide 0.5 mg/2 ml [Pulmicort 0.5 mg/2 ml Respules] 2 ml IH BID Azelastine Nasal [Astelin Nasal] 2 spray IN BID Cholecalciferol (Vitamin D3) [Vitamin D3] 100 mcg PO DAILY Guaifenesin 100 mg/5 ml [Robitussin 100 MG/5 ML] 10 ml PO Q4H PRN PRN PRN Reason: Cough Apixaban [Eliquis] 5 mg PO BID Sitagliptin Phosphate 50 MG [Januvia 50 MG] 100 mg PO DAILY Amlodipine Besylate 5 mg [Norvasc 5 mg] 2.5 mg PO DAILY Discontinued PANTOPRAZOLE 40 mg Tablet [Protonix 40MG Tablet] 40 mg PO DAILY tablet Instructions: COPD exacerbation - Discharge instructions Follow up with: KELLY RAMOS DO [Primary Care Provider, [facility]] - 12/24/24 3:00 pm Referral Note: Forms: Discharge Instructions
[2024-12-15] MEDS: Lantus Insulin SQ SCH ×2 (11:05→12:00)
[2024-12-15 11:51] VITALS: BP 179/89; TEMP 97.2
[2024-12-15 13:01] VITALS: PULSE 91; RESP 16; O2SAT 98
== END 2024-12-15 14:13 | disposition home or self-care (01) ==
LOC: ED 11:08 → MED SURG 16:39
PROVIDERS: ADMIT Internal Medicine; ATTEND Internal Medicine
DX: J44.1 Chronic obstructive pulmonary disease with (acute) exacerbation (principal); I10 Essential (primary) hypertension; J02.9 Acute pharyngitis, unspecified; E11.9 Type 2 diabetes mellitus without complications; K21.9 Gastro-esophageal reflux disease without esophagitis; F41.9 Anxiety disorder, unspecified; E78.5 Hyperlipidemia, unspecified; E66.9 Obesity, unspecified; Z79.01 Long term (current) use of anticoagulants; Z99.81 Dependence on supplemental oxygen; Z79.899 Other long term (current) drug therapy; Z68.32 Body mass index [BMI] 32.0-32.9, adult
CPT/HCPCS: 36415; 71045; 80053; 82947; 83036; 83605; 83735; 83880; 84484; 85025; 85027; 85379; 85610; 87040; 87637; 93005; 93041; 94640; 94760; 96365; 96374; 99285; Q3014